=== PATIENT | male | born 1950 | race Caucasian/White ===

== ENCOUNTER 2016-09-04 18:57 | Inpatient (IN) | payer OTHER ==
[2016-09-04 19:32] VITALS: BMI 28.8
[2016-09-04 20:11] LABS: URINE APPEARANCE TURBID; URINE BILIRUBIN NEGATIVE (NEGATIVE); URINE COLOR YELLOW; URINE GLUCOSE (UA) 3+ (NEGATIVE); URINE KETONE NEGATIVE (NEGATIVE); URINE NITRITE POSITIVE (NEGATIVE); URINE UROBILINOGEN NEGATIVE E.U./dl (0.2-1.0)
[2016-09-04 20:12] LABS: URINE BLOOD 3+ (NEGATIVE); URINE LEUK ESTERASE 3+ (NEGATIVE); URINE PROTEIN 2+ (NEGATIVE)
[2016-09-04 20:16] LABS: URINE BACTERIA MODERATE /hpf (NONE SEEN); URINE RBC 1293 /hpf (0-3); URINE WBC 2521 /hpf (3-5); YEAST MANY
[2016-09-04 20:19] LABS: BASOPHIL 0.8 % (0-2.0); EOSINOPHIL 2.6 % (0-4.5); MCH 26.4 pg (25.7-33.7); MCHC 32.5 g/dl (32.0-35.9); MEAN CELL VOLUME 81.3 fl (80-96); MEAN PLT VOLUME 11.7 fl (7.5-11.1); NEUTROPHILS 77.9 % (42.8-82.8); PLATELET COUNT 120 K/MM3 (134-434); RDW 17.7 % (11.9-15.9); WHITE BLOOD COUNT 7.3 K/mm3 (4.0-10.0)
[2016-09-04 20:39] LABS: ALBUMIN 3.2 g/dl (3.4-5.0); ANION GAP 9 (8-16); BILIRUBIN,TOTAL 0.2 mg/dL (0.2-1.0); CALCIUM 8.4 mg/dL (8.5-10.1); CO2 28 mmol/L (21-32); CREATININE 1.5 mg/dL (0.7-1.3); SGOT/AST 10 U/L (15-37); SGPT/ALT 17 U/L (12-78); TOT PROT 7.3 g/dl (6.4-8.2)
[2016-09-04] MEDS ORDERED: morphine CARPU-JECT 4 MG/1 ML DISP.SYRIN IVPUSH ONE (20:40)
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
[2016-09-04 20:42] LABS: ALK PHOS 175 U/L (45-117); TROPONIN I < 0.02 ng/ml (0.00-0.05)
[2016-09-04 20:45] LABS: GLUCOSE,RANDOM 424 mg/dL (74-106)
[2016-09-04] MEDS ORDERED: morphine CARPU-JECT 4 MG/1 ML DISP.SYRIN ONE (21:05)
[2016-09-04] MEDS ORDERED: SODIUM CHLORIDE 1,000 ML IV ONE (21:14)
[2016-09-04] MEDS ORDERED: INSULIN REGULAR HUMAN 100 UNITS/ML *VIAL IVPUSH ONE (21:28)
[2016-09-04] MEDS ORDERED: FLUCONAZOLE 50 MG TABLET PO ONE (21:30)
[2016-09-04] MEDS ORDERED: CEFTRIAXONE 1 GM in DEXTROSE 5%-WATER - 50 ML IVPB ONE (21:30)
[2016-09-04] MEDS ORDERED: MEROPENEM 1 GM in DEXTROSE 5%-WATER - 100 ML IVPB ONE (21:33)
[2016-09-04] MEDS ORDERED: INSULIN REGULAR HUMAN 100 UNITS/ML *VIAL ONE (21:59)
[2016-09-04] MEDS ORDERED: FLUCONAZOLE 100 MG TABLET (UD) ONE (22:01)
[2016-09-04] MEDS ORDERED: amLODIPine BESYLATE 10 MG TABLET (FP) PO ONE (23:15)
[2016-09-04] MEDS ORDERED: PANTOPRAZOLE 40 MG TABLET (FP) PO ONE (23:16)
[2016-09-04] MEDS ORDERED: TAMSULOSIN HCL 0.4 MG CAP.ER.24H (FP) PO ONE (23:16)
[2016-09-04] MEDS ORDERED: ONDANSETRON 4 MG/2 ML VIAL IVPB PRN (23:18)
[2016-09-04] MEDS ORDERED: CEFTRIAXONE 50 ML ONE (23:26)
[2016-09-04] MEDS ORDERED: SODIUM CHLORIDE 1,000 ML IV SCH (23:30)
[2016-09-04] MEDS ORDERED: morphine CARPU-JECT 2 MG/1 ML DISP.SYRIN IVPUSH PRN (23:36)
[2016-09-04] MEDS ORDERED: PANTOPRAZOLE 40 MG TABLET (FP) ONE (23:57)
[2016-09-04] MEDS ORDERED: amLODIPine BESYLATE 5 MG TABLET (FP) ONE (23:58)
[2016-09-04] MEDS ORDERED: TAMSULOSIN HCL 0.4 MG CAP.ER.24H (FP) ONE (23:58)
[2016-09-05 06:05] LABS: CALCIUM 8.1 mg/dL (8.5-10.1); CREATININE 1.3 mg/dL (0.7-1.3)
[2016-09-05] MEDS ORDERED: MEROPENEM 1 GM in DEXTROSE 5%-WATER - 250 ML IVPB SCH (07:30)
[2016-09-05] MEDS ORDERED: MEROPENEM 1 GM in DEXTROSE 5%-WATER - 250 ML IVPB ONE (08:00)
[2016-09-05] MEDS ORDERED: METOPROLOL TARTRATE 50 MG TABLET (FP) PO SCH (10:00)
[2016-09-05] MEDS ORDERED: INSULIN (NOVOLOG) ASPART 100 UNITS/ML 10ML VIAL ONE ×2 (10:00→15:21)
[2016-09-05] MEDS: INSULIN SLIDING SCALE (NOVOLOG) 1 VIAL SQ SCH ×5 (10:04→22:06)
[2016-09-05] MEDS ORDERED: METOPROLOL TARTRATE 50 MG TABLET (FP) ONE (10:10)
--- NOTE | 2016-09-05 12:27 | EKG ---
Test Reason : Blood Pressure : / mmHG Vent. Rate : 096 BPM Atrial Rate : 096 BPM P-R Int : 200 ms QRS Dur : 084 ms QT Int : 332 ms P-R-T Axes : 053 038 049 degrees QTc Int : 419 ms NORMAL SINUS RHYTHM WITH 1ST DEGREE A-V BLOCK LEFT ATRIAL ENLARGEMENT WHEN COMPARED WITH ECG OF 29-MAR-2016 06:38, NO SIGNIFICANT CHANGE WAS FOUND Confirmed by SARANYA CROW MD ([id number]) on 09/05/2016 12:27:26 PM Referred By: DENNY Confirmed By:SARANYA CROW MD
--- NOTE | 2016-09-05 15:17 | CONSULT ---
Consult Consult Specialty:: infectious diseases Reason for Consultation:: uti,fever,flnak pain - History of Present Illness Chief Complaint: fever,back pain History of Present Illness: 66 year old male, with a significant past medical history of hypertension, [place] x2 , hyperlipidemia, diabetes, coronary artery disease CAD s/p stent, and kidney stones, presented to the emergency department with left flank pain and hematuria patient pain was intermittent and also patient was c/o of left flank pain. The pain was associated with hematuria Patient known to me and in the last admission he was growing esbl currently he does c/o of left flank pain but feels better from his chills - History Source History Provided By: Family Member Limitations to Obtaining History: Language Barrier - Past Medical History Cardio/Vascular: Yes: CAD, HTN Renal/: Yes: Other Endocrine: Yes: Diabetes Mellitus - Alcohol/Substance Use Hx Alcohol Use: No - Smoking History Smoking history: Never smoked Have you smoked in the past 12 months: No Aproximately how many cigarettes per day: 0 If you are a former smoker, when did you quit?: 2014 Home Medications - Allergies Allergies/Adverse Reactions: Allergies Allergy/AdvReac Type Severity Reaction Status Date / Time lisinopril Allergy Severe Swelling Verified 09/04/16 19:28 - Home Medications Home Medications: Ambulatory Orders Amlodipine Besylate [Norvasc -] 10 mg PO DAILY 01/22/15 Ferrous Sulfate [Feosol] 325 mg PO DAILY 01/22/15 Glipizide/Metformin HCl [Glipizide-Metformin 5-500 mg] 1 each PO BID 01/22/15 Tamsulosin HCl 0.4 mg PO HS 01/22/15 Tramadol HCl [Ultram] 100 mg PO BID PRN 01/22/15 Esomeprazole Magnesium [Nexium 24Hr] 40 mg PO DAILY 11/22/15 Gabapentin [Neurontin -] 300 mg PO HS 11/22/15 Meclizine HCl [Antivert -] 25 mg PO BID PRN 11/22/15 Metoprolol Tartrate [Lopressor -] 50 mg PO BID 11/22/15 Aspirin [ASA -] 81 mg PO DAILY 01/12/16 Diphenhydramine HCl [Benadryl Capsule -] 50 mg PO TID #20 capsule 03/31/16 Prednisone [Deltasone -] 40 mg PO DAILY #10 tablet 03/31/16 Review of Systems - Review of Systems Constitutional: reports: Chills, Other Eyes: reports: No Symptoms HENT: reports: No Symptoms Neck: reports: No Symptoms Cardiovascular: reports: No Symptoms Respiratory: reports: No Symptoms Gastrointestinal: reports: No Symptoms Genitourinary: reports: Flank Pain, Hematuria Musculoskeletal: reports: No Symptoms Integumentary: reports: No Symptoms Neurological: reports: No Symptoms Endocrine: reports: No Symptoms Hematology/Lymphatic: reports: No Symptoms Psychiatric: reports: No Symptoms Physical Exam Vital Signs: Vital Signs Temperature 99.5 F 09/05/16 07:30 Pulse Rate 96 H 09/05/16 11:00 Respiratory Rate 18 09/05/16 11:00 Blood Pressure 130/75 09/05/16 11:00 O2 Sat by Pulse Oximetry (%) 100 09/05/16 11:00 Constitutional: Yes: Well Nourished, Obese Eyes: Yes: Conjunctiva Clear HENT: Yes: Atraumatic Neck: Yes: Supple, Trachea Midline Cardiovascular: Yes: Regular Rate and Rhythm Respiratory: Yes: Regular, CTA Bilaterally Gastrointestinal: Yes: Normal Bowel Sounds, Soft Renal/: Yes: CVA Tenderness - Left, Preciado Present, Hematuria Musculoskeletal: Yes: WNL Extremities: Yes: WNL Neurological: Yes: Alert, Oriented Psychiatric: Yes: Alert, Oriented Labs: CBC, BMP 09/05/16 08:24 Imaging - Results Cat Scan: Report Reviewed, Image Reviewed Assessment/Plan pyelo uti cathy dm 5. HTN 6. CAD 7. Hematuria plan will start patient on abx continue current mgmt await for plan
[2016-09-05] MEDS ORDERED: SODIUM CHLORIDE 1,000 ML IV SCH (16:15)
--- NOTE | 2016-09-05 16:19 | PN ---
Physical Exam: SUBJECTIVE: Patient seen and examined in the ED. He says he has chills, feels cold. He has emptied his valero bag 3 times, he says his valero back leaks, his urologist is aware, Events: - Febrile overnight - Valero 2 weeks ago, placed 6 months ago, due for stent placement or supra pubic catheter on 09/17. OBJECTIVE: Vital Signs Period Temp Pulse Resp BP Sys/Grissom Pulse Ox Last 24 Hr 99.5 F-100.9 F 73-96 18-20 117-130/62-75 97-100 PE Neuro: alert, awake, cn 2-12intact Pulm: CTAB CV: s1 s2 rrr no mrg Abd: obese abd, soft, diffuse lower pubic pain Ext: warm, no le edema Laboratory Results - last 24 hr 09/04/16 09/05/16 09/05/16 23:43 05:20 08:24 Sodium 133 L Potassium 4.4 Chloride 98 Carbon Dioxide 28 Anion Gap 7 L BUN 12 Creatinine 1.3 POC Glucometer [phone] Random Glucose 365 H* 413 H* Fasting Glucose Calcium 8.1 L Active Medications Generic Name Dose Route Start Last Admin Trade Name Freq PRN Reason Stop Dose Admin Amlodipine Besylate 10 mg 09/06/16 10:00 Norvasc - PO DAILY LINDSEY Gabapentin 300 mg 09/05/16 22:00 Neurontin - PO HS LINDSEY Meropenem 1 gm/ Dextrose 100 mls @ 100 mls/hr 09/05/16 18:00 IVPB Q8H-IV LINDSEY Protocol Sodium Chloride 1,000 mls @ 83 mls/hr 09/05/16 16:15 Normal Saline - IV 09/06/16 04:18 ASDIR LINDSEY Insulin Aspart 1 vial 09/05/16 07:00 09/05/16 15:18 Novolog Vial Sliding Scale - SQ 8 units ACHS LINDSEY Administration Protocol Insulin Detemir 10 units 09/05/16 22:00 Levemir Vial SQ HS LINDSEY Metoprolol Tartrate 50 mg 09/05/16 22:00 Lopressor - PO BID LINDSEY Morphine Sulfate 2 mg 09/04/16 23:36 Morphine Injection - IVPUSH Q4H PRN PAIN Ondansetron HCl 4 mg 09/04/16 23:18 Zofran Injection IVPB 09/06/16 23:17 Q4H PRN NAUSEA AND/OR VOMITING Tamsulosin HCl 0.4 mg 09/05/16 22:00 Flomax - PO HS LINDSEY Imaging: - CTAP 09/05: Double-J left-sided ureteral stent in place with hydroureteronephrosis. This is of moderate severity. There is a questionable mid upper pole cyst of the left kidney. Mild diverticulosis of the colon without diverticulitis Assessment: 66 year old male, with pmhx of HTN, [place] x2, s/p cardiac stents, CAD, HLD, DM II, and nephrolitiasis, TURP, left kidney stent placement, prostate ca, admitted left flank pain and hematuria. Plan: 1. Left Hydroureteronephrosis - CTAP negative for stone signs - NS @83cc/hr x1L - Monitor fluid status - Hold ASA for now d/t hematuria - Urology consulted 2. UTI, hx of esbl klebsiella in 2016 - Urcx, blood cx pending - Continue Meropenem 1gm q8 (day 1) - ID seeing 3. MARY - Likely post obstructive - Improving - Continue IVF - BMP in AM, baseline cr 1.1 4. Diabetes Mellitus, uncontrolled - Check Hgb A1c - Hold PO antidiabetics - Levemir 10units HS - ISS, BGM ACHS 5. HTN - Amlodipine 10 mg daily 6. CAD s/p stents - Continue Metoprolol BID - Hold ASA at this time 7. Hematuria - Monitor I/O - Hold chemical AC at this time 8. DVT ppx - SCDs - Hold Chemical AC due to above Visit type - Emergency Visit Emergency Visit: Yes ED Registration Date: 09/04/16 Care time: The patient presented to the Emergency Department on the above date and was hospitalized for further evaluation of their emergent condition. - New Patient This patient is new to me today: Yes Date on this admission: 09/05/16 - Critical Care Critical Care patient: No
[2016-09-05] MEDS: MEROPENEM 1 GM in DEXTROSE 5%-WATER - 100 ML IVPB SCH (21:56)
[2016-09-05] MEDS: GABAPENTIN 300 MG CAPSULE (FP) PO SCH (21:56)
[2016-09-05] MEDS: METOPROLOL TARTRATE 50 MG TABLET (FP) PO SCH (21:57)
[2016-09-05] MEDS: ACETAMINOPHEN 325 MG TABLET (FP) PO PRN (21:57)
[2016-09-05] MEDS ORDERED: TAMSULOSIN HCL 0.4 MG CAP.ER.24H (FP) PO SCH (22:00)
[2016-09-05] MEDS ORDERED: INSULIN DETEMIR 100 UNITS/ML MDV SQ SCH (22:00)
--- NOTE | 2016-09-05 23:42 | CON.GU ---
Consult Consult Specialty:: urology Reason for Consultation:: lt hydronpehrosis, lt renal colick, lt ureteral stone - History of Present Illness Chief Complaint: lt colick flank pain - Past Medical History Cardio/Vascular: Yes: CAD, HTN Renal/: Yes: Other Endocrine: Yes: Diabetes Mellitus - Alcohol/Substance Use Hx Alcohol Use: No - Smoking History Smoking history: Never smoked Have you smoked in the past 12 months: No Aproximately how many cigarettes per day: 0 If you are a former smoker, when did you quit?: 2014 Home Medications - Allergies Allergies/Adverse Reactions: Allergies Allergy/AdvReac Type Severity Reaction Status Date / Time lisinopril Allergy Severe Swelling Verified 09/04/16 19:28 - Home Medications Home Medications: Ambulatory Orders Amlodipine Besylate [Norvasc -] 10 mg PO DAILY 01/22/15 Ferrous Sulfate [Feosol] 325 mg PO DAILY 01/22/15 Glipizide/Metformin HCl [Glipizide-Metformin 5-500 mg] 1 each PO BID 01/22/15 Tamsulosin HCl 0.4 mg PO HS 01/22/15 Tramadol HCl [Ultram] 100 mg PO BID PRN 01/22/15 Esomeprazole Magnesium [Nexium 24Hr] 40 mg PO DAILY 11/22/15 Gabapentin [Neurontin -] 300 mg PO HS 11/22/15 Meclizine HCl [Antivert -] 25 mg PO BID PRN 11/22/15 Metoprolol Tartrate [Lopressor -] 50 mg PO BID 11/22/15 Aspirin [ASA -] 81 mg PO DAILY 01/12/16 Diphenhydramine HCl [Benadryl Capsule -] 50 mg PO TID #20 capsule 03/31/16 Prednisone [Deltasone -] 40 mg PO DAILY #10 tablet 03/31/16 Review of Systems - Review of Systems Genitourinary: reports: Flank Pain (lt flank pain, colick in nature, + CVA tenderness), Hematuria (microscopic) Physical Exam- Vital Signs: Vital Signs Temperature 100.4 F H 09/05/16 23:00 Pulse Rate 106 H 09/05/16 22:00 Respiratory Rate 18 09/05/16 22:00 Blood Pressure 130/67 09/05/16 22:00 O2 Sat by Pulse Oximetry (%) 100 09/05/16 18:00 Renal/: Yes: CVA Tenderness - Left, Hematuria (microsccopic) Kidneys: Yes: WNL, Other (lt hydronpehprosis) Testicles: Yes: WNL Scrotum: Yes: WNL Penis: Yes: WNL Labs: CBC, BMP 09/05/16 08:24 Imaging - Results Cat Scan: Report Reviewed (lt hydro, lt stent) Problem List - Problems (1) Acute kidney injury Code(s): N17.9 - ACUTE KIDNEY FAILURE, UNSPECIFIED (2) UTI (urinary tract infection) Code(s): N39.0 - URINARY TRACT INFECTION, SITE NOT SPECIFIED Qualifiers: Urinary tract infection type: site unspecified Hematuria presence: without hematuria Qualified Code(s): N39.0 - Urinary tract infection, site not specified (3) Ureterovesical junction (UVJ) obstruction Code(s): N13.5 - CROSSING VESSEL AND STRICTURE OF URETER W/O HYDRONEPHROSIS (4) Acute urinary retention Code(s): R33.8 - OTHER RETENTION OF URINE (5) Angioedema Code(s): T78.3XXA - ANGIONEUROTIC EDEMA, INITIAL ENCOUNTER Qualifiers: Encounter type: initial encounter Qualified Code(s): T78.3XXA - Angioneurotic edema, initial encounter (6) CAD (coronary artery disease) Code(s): I25.10 - ATHSCL HEART DISEASE OF [place] CORONARY ARTERY W/O ANG PCTRS (7) DVT prophylaxis Code(s): [id number] - (8) Diabetes Code(s): E11.9 - TYPE 2 DIABETES MELLITUS WITHOUT COMPLICATIONS (9) Hematuria Code(s): R31.9 - HEMATURIA, UNSPECIFIED (10) Hydroureter Code(s): N13.4 - HYDROURETER (11) Hyperglycemia Code(s): R73.9 - HYPERGLYCEMIA, UNSPECIFIED (12) Hypertension Code(s): I10 - ESSENTIAL (PRIMARY) HYPERTENSION (13) Pyelonephritis Code(s): N12 - TUBULO-INTERSTITIAL NEPHRITIS, NOT SPCF ACUTE OR CHRONIC (14) Vertigo Code(s): R42 - DIZZINESS AND GIDDINESS Assessment/Plan assessment: 66 M w Lt hydronephrosis secondary to lt ureteral stone plan: valeor to leg back strain urine for stones, increase PO fluids Renal/pelvis sonogram in AM flomox .4mg po daily if no improvement, laser lithotripsy on Tuesday
[2016-09-06] MEDS ORDERED: PT OWN MED DRAWER 7, Y5N ONE (02:32)
[2016-09-06] MEDS: MEROPENEM 1 GM in DEXTROSE 5%-WATER - 100 ML IVPB SCH ×3 (02:34→17:33)
[2016-09-06] MEDS: INSULIN SLIDING SCALE (NOVOLOG) 1 VIAL SQ SCH ×4 (06:16→21:46)
[2016-09-06 07:00] LABS: CALCIUM 8.1 mg/dL (8.5-10.1); CREATININE 1.2 mg/dL (0.7-1.3)
[2016-09-06] MEDS: SODIUM CHLORIDE 1,000 ML IV SCH (08:57)
[2016-09-06] MEDS: TAMSULOSIN HCL 0.4 MG CAP.ER.24H (FP) PO SCH (08:58)
[2016-09-06] MEDS: METOPROLOL TARTRATE 50 MG TABLET (FP) PO SCH ×2 (09:01→21:45)
[2016-09-06] MEDS: amLODIPine BESYLATE 10 MG TABLET (FP) PO SCH (09:01)
[2016-09-06] MEDS: ACETAMINOPHEN 325 MG TABLET (FP) PO PRN ×2 (10:19→17:57)
--- NOTE | 2016-09-06 10:31 | PN ---
Physical Exam: SUBJECTIVE: Patient seen and examined. He said he felt cold last night, he no longer does. His pain is improved a little. Events: Persistent fevers overnight, today OBJECTIVE: Vital Signs Period Temp Pulse Resp BP Sys/Grissom Pulse Ox Last 24 Hr 97.6 F-102 F 76-110 16-19 127-152/67-89 100-100 PE Neuro: alert, awake, cn 2-12intact Pulm: CTAB CV: s1 s2 rrr no mrg Abd: obese abd, soft, diffuse lower pubic pain- mildly improved : valero bag, L flank tenderness Ext: warm, no le edema Laboratory Results - last 24 hr 09/05/16 09/06/16 13:21 05:25 Sodium 137 Potassium 3.7 Chloride 101 Carbon Dioxide 26 Anion Gap 10 BUN 12 Creatinine 1.2 Random Glucose 221 H D Fasting Glucose 326 H* Calcium 8.1 L 09/06/16 05:25 Hemoglobin A1c % 10.9 H D Active Medications Generic Name Dose Route Start Last Admin Trade Name Freq PRN Reason Stop Dose Admin Acetaminophen 650 mg 09/05/16 16:51 09/06/16 10:19 Tylenol - PO 650 mg Q4H PRN Administration FEVER OR PAIN Amlodipine Besylate 10 mg 09/06/16 10:00 09/06/16 09:01 Norvasc - PO 10 mg DAILY LINDSEY Administration Gabapentin 300 mg 09/05/16 22:00 09/05/16 21:56 Neurontin - PO 300 mg HS LINDSEY Administration Meropenem 1 gm/ Dextrose 100 mls @ 100 mls/hr 09/05/16 18:00 09/06/16 10:19 IVPB 100 mls/hr Q8H-IV LINDSEY Administration Protocol Sodium Chloride 1,000 mls @ 75 mls/hr 09/06/16 08:00 09/06/16 08:57 Normal Saline - IV 75 mls/hr ASDIR LINDSEY Administration Insulin Aspart 1 vial 09/05/16 07:00 09/06/16 06:16 Novolog Vial Sliding Scale - SQ 6 units ACHS LINDSEY Administration Protocol Insulin Detemir 13 units 09/06/16 07:49 Levemir Vial SQ HS LINDSEY Metoprolol Tartrate 50 mg 09/05/16 22:00 09/06/16 09:01 Lopressor - PO 50 mg BID LINDSEY Administration Morphine Sulfate 2 mg 09/04/16 23:36 Morphine Injection - IVPUSH Q4H PRN PAIN Ondansetron HCl 4 mg 09/04/16 23:18 Zofran Injection IVPB 09/06/16 23:17 Q4H PRN NAUSEA AND/OR VOMITING Tamsulosin HCl 0.4 mg 09/06/16 08:30 09/06/16 08:58 Flomax - PO 0.4 mg DAILY@0830 LINDSEY Administration Imaging: - CTAP 09/05: Double-J left-sided ureteral stent in place with hydroureteronephrosis. This is of moderate severity. There is a questionable mid upper pole cyst of the left kidney. Mild diverticulosis of the colon without diverticulitis Assessment: 66 year old male, with pmhx of HTN, [place] x2, s/p cardiac stents, CAD, HLD, DM II, and nephrolitiasis, TURP, left kidney stent placement, prostate ca, admitted left flank pain and hematuria. Plan: 1. Left Hydroureteronephrosis - Likely due to ureteral stone - Continue NS @75cc/hr x1L - Hold ASA for now d/t hematuria and possible urological procedure Tuesday - Urology following 2. UTI, hx of esbl klebsiella in 2016 - Urine cx pre rosales LFNB - Continue Meropenem 1gm q8 (day 2) 3. MARY - Continues to improve - Continue IVF 4. Diabetes Mellitus, uncontrolled - Hgb A1c 10.9 - Increase Levemir 13units HS - ISS, BGM ACHS - Hold PO antidiabetics 5. HTN - BP stable - Amlodipine 10 mg daily 6. CAD s/p stents - Continue Metoprolol BID - Hold ASA at this time 7. Hematuria - Monitor I/O - Hold chemical AC at this time - Repeat UA tomorrow 8. DVT ppx - SCDs - Hold Chemical AC due to above Visit type - Emergency Visit Emergency Visit: Yes ED Registration Date: 09/04/16 Care time: The patient presented to the Emergency Department on the above date and was hospitalized for further evaluation of their emergent condition. - New Patient This patient is new to me today: No - Critical Care Critical Care patient: No
[2016-09-06] MEDS ORDERED: INSULIN (NOVOLOG) ASPART 100 UNITS/ML 10ML VIAL ONE ×2 (11:44→21:38)
--- NOTE | 2016-09-06 13:52 | PN ---
Progress Note, Physician History of Present Illness: ferdinand avila still has back pain,but better - Current Medication List Current Medications: Active Medications Acetaminophen (Tylenol -) 650 mg PO Q4H PRN PRN Reason: FEVER OR PAIN Last Admin: 09/06/16 10:19 Dose: 650 mg Amlodipine Besylate (Norvasc -) 10 mg PO DAILY [facility] Last Admin: 09/06/16 09:01 Dose: 10 mg Gabapentin (Neurontin -) 300 mg PO HS [facility] Last Admin: 09/05/16 21:56 Dose: 300 mg Meropenem 1 gm/ Dextrose 100 mls @ 100 mls/hr IVPB Q8H-IV LINDSEY PRN Reason: Protocol Last Admin: 09/06/16 10:19 Dose: 100 mls/hr Sodium Chloride (Normal Saline -) 1,000 mls @ 75 mls/hr IV ASDIR [facility] Last Admin: 09/06/16 08:57 Dose: 75 mls/hr Insulin Aspart (Novolog Vial Sliding Scale -) 1 vial SQ ACHS [facility] PRN Reason: Protocol Last Admin: 09/06/16 12:08 Dose: 10 units Insulin Detemir (Levemir Vial) 13 units SQ [facility] Metoprolol Tartrate (Lopressor -) 50 mg PO BID [facility] Last Admin: 09/06/16 09:01 Dose: 50 mg Morphine Sulfate (Morphine Injection -) 2 mg IVPUSH Q4H PRN PRN Reason: PAIN Ondansetron HCl (Zofran Injection) 4 mg IVPB Q4H PRN PRN Reason: NAUSEA AND/OR VOMITING Stop: 09/06/16 23:17 Tamsulosin HCl (Flomax -) 0.4 mg PO DAILY@0830 [facility] Last Admin: 09/06/16 08:58 Dose: 0.4 mg - Objective Vital Signs: Vital Signs Temperature 101.2 F H 09/06/16 09:05 Pulse Rate 105 H 09/06/16 09:05 Respiratory Rate 19 09/06/16 09:05 Blood Pressure 129/71 09/06/16 09:05 O2 Sat by Pulse Oximetry (%) 100 09/05/16 21:00 Constitutional: Yes: Calm, Mild Distress Cardiovascular: Yes: Regular Rate and Rhythm Respiratory: Yes: Regular, CTA Bilaterally Gastrointestinal: Yes: Normal Bowel Sounds, Soft Genitourinary: Yes: CVA Tenderness - Left Musculoskeletal: Yes: WNL Extremities: Yes: WNL Neurological: Yes: Alert, Oriented Psychiatric: Yes: Alert Labs: CBC, BMP 09/06/16 05:25 Assessment/Plan pyelo uti cathy dm 5. HTN 6. CAD 7. Hematuria urine cx result noted await for identification plan continue abx rest as per =the team
[2016-09-06] MEDS: INSULIN DETEMIR 100 UNITS/ML MDV SQ SCH (21:46)
[2016-09-06] MEDS: GABAPENTIN 300 MG CAPSULE (FP) PO SCH (21:46)
[2016-09-07] MEDS ORDERED: PT OWN MED DRAWER 7, Y5N ONE (01:54)
[2016-09-07] MEDS: SODIUM CHLORIDE 1,000 ML IV SCH ×2 (02:23→08:00)
[2016-09-07] MEDS: MEROPENEM 1 GM in DEXTROSE 5%-WATER - 100 ML IVPB SCH ×3 (02:24→17:56)
[2016-09-07] MEDS: ACETAMINOPHEN 325 MG TABLET (FP) PO PRN ×2 (02:50→20:31)
[2016-09-07] MEDS: INSULIN SLIDING SCALE (NOVOLOG) 1 VIAL SQ SCH ×4 (06:42→21:50)
[2016-09-07 07:37] LABS: BASOPHIL 0.6 % (0-2.0); EOSINOPHIL 1.1 % (0-4.5); MCHC 31.7 g/dl (32.0-35.9); MEAN CELL VOLUME 81.9 fl (80-96); MEAN PLT VOLUME 11.3 fl (7.5-11.1); NEUTROPHILS 60.8 % (42.8-82.8); PLATELET COUNT 102 K/MM3 (134-434); RDW 17.1 % (11.9-15.9); WHITE BLOOD COUNT 4.3 K/mm3 (4.0-10.0)
[2016-09-07 08:04] LABS: PHOSPHOROUS 2.8 mg/dL (2.5-4.9)
--- NOTE | 2016-09-07 08:26 | PN ---
Physical Exam: SUBJECTIVE: Patient seen and examined. His valero appears to be leaking, he had x3 intermittent epigastric pain but leaves quickly. Events: fevers, tmax 102.5 OBJECTIVE: Vital Signs Period Temp Pulse Resp BP Sys/Grissom Pulse Ox Last 24 Hr 98.5 F-102.5 F 79-105 16-20 114-129/65-72 95-100 PE Neuro: alert, awake, cn 2-12intact Pulm: CTAB CV: s1 s2 rrr no mrg Abd: abd, soft, nt +bs, : valero bag, R groin tenderness Ext: warm, no le edema CBCD WBC 4.3 K/mm3 (4.0-10.0) D 09/07/16 06:50 RBC 3.78 M/mm3 (4.00-5.60) L 09/07/16 06:50 Hgb 9.8 GM/dL (11.7-16.9) L 09/07/16 06:50 Hct 30.9 % (35.4-49) L 09/07/16 06:50 MCV 81.9 fl (80-96) 09/07/16 06:50 MCHC 31.7 g/dl (32.0-35.9) L 09/07/16 06:50 RDW 17.1 % (11.9-15.9) H 09/07/16 06:50 Plt Count 102 K/MM3 (134-434) L 09/07/16 06:50 MPV 11.3 fl (7.5-11.1) H 09/07/16 06:50 CMP Sodium 141 mmol/L (136-145) 09/07/16 06:50 Potassium 3.7 mmol/L (3.5-5.1) 09/07/16 06:50 Chloride 105 mmol/L (98-107) 09/07/16 06:50 Carbon Dioxide 27 mmol/L (21-32) 09/07/16 06:50 Anion Gap 9 (8-16) 09/07/16 06:50 BUN 8 mg/dL (7-18) D 09/07/16 06:50 Creatinine 1.0 mg/dL (0.7-1.3) 09/07/16 06:50 Creat Clearance w eGFR 46.54 (>60) 09/04/16 20:08 Calcium 8.0 mg/dL (8.5-10.1) L 09/07/16 06:50 Total Bilirubin 0.2 mg/dL (0.2-1.0) D 09/04/16 20:08 AST 10 U/L (15-37) L D 09/04/16 20:08 ALT 17 U/L (12-78) D 09/04/16 20:08 Alkaline Phosphatase 175 U/L (45-117) H D 09/04/16 20:08 Total Protein 7.3 g/dl (6.4-8.2) 09/04/16 20:08 Albumin 3.2 g/dl (3.4-5.0) L 09/04/16 20:08 Active Medications Generic Name Dose Route Start Last Admin Trade Name Freq PRN Reason Stop Dose Admin Acetaminophen 650 mg 09/05/16 16:51 09/07/16 02:50 Tylenol - PO 650 mg Q4H PRN Administration FEVER OR PAIN Amlodipine Besylate 10 mg 09/06/16 10:00 09/06/16 09:01 Norvasc - PO 10 mg DAILY LINDSEY Administration Gabapentin 300 mg 09/05/16 22:00 09/06/16 21:46 Neurontin - PO 300 mg HS LINDSEY Administration Meropenem 1 gm/ Dextrose 100 mls @ 100 mls/hr 09/05/16 18:00 09/07/16 02:24 IVPB 100 mls/hr Q8H-IV LINDSEY Administration Protocol Sodium Chloride 1,000 mls @ 75 mls/hr 09/06/16 08:00 09/07/16 02:23 Normal Saline - IV 75 mls/hr ASDIR LINDSEY Administration Insulin Aspart 1 vial 09/05/16 07:00 09/07/16 06:42 Novolog Vial Sliding Scale - SQ 2 units ACHS LINDSEY Administration Protocol Insulin Detemir 13 units 09/06/16 07:49 09/06/16 21:46 Levemir Vial SQ 13 units HS LINDSEY Administration Metoprolol Tartrate 50 mg 09/05/16 22:00 09/06/16 21:45 Lopressor - PO 50 mg BID LINDSEY Administration Morphine Sulfate 2 mg 09/04/16 23:36 Morphine Injection - IVPUSH Q4H PRN PAIN Tamsulosin HCl 0.4 mg 09/06/16 08:30 09/06/16 08:58 Flomax - PO 0.4 mg DAILY@0830 LINDSEY Administration Imaging: - CTAP 09/05: Double-J left-sided ureteral stent in place with hydroureteronephrosis. This is of moderate severity. There is a questionable mid upper pole cyst of the left kidney. Mild diverticulosis of the colon without diverticulitis Assessment: 66 year old male, with pmhx of HTN, [place] x2, s/p cardiac stents, CAD, HLD, DM II, and nephrolitiasis, TURP, left kidney stent placement, prostate ca, admitted left flank pain and hematuria. Plan: 1. Left Hydroureteronephrosis - Likely due to ureteral stone - Decrease NS @60cc/hr - Strain urine - Hold ASA for now d/t hematuria and possible urological procedure Tuesday 2. UTI, hx of esbl klebsiella in 2015 - Repeat blood cultures pending - Awaiting final urine cx results - Continue Meropenem 1gm q8 (day 3) 3. MARY - Resolved 4. Diabetes Mellitus, uncontrolled (a1c 10.9) - AM sugars improved - Continue Levemir 13units HS - ISS, BGM ACHS - Hold home po meds 5. HTN - BP stable - Amlodipine 10 mg daily 6. CAD s/p stents - Continue Metoprolol BID - Hold ASA at this time 7. Hematuria - Monitor I/O - Hold chemical AC at this time - UA ordered 8. DVT ppx - Start Heparin sq Visit type - Emergency Visit Emergency Visit: Yes ED Registration Date: 09/04/16 Care time: The patient presented to the Emergency Department on the above date and was hospitalized for further evaluation of their emergent condition. - New Patient This patient is new to me today: No - Critical Care Critical Care patient: No
[2016-09-07] MEDS ORDERED: INSULIN (NOVOLOG) ASPART 100 UNITS/ML 10ML VIAL ONE ×2 (09:22→21:33)
[2016-09-07] MEDS: amLODIPine BESYLATE 10 MG TABLET (FP) PO SCH (09:28)
[2016-09-07] MEDS: TAMSULOSIN HCL 0.4 MG CAP.ER.24H (FP) PO SCH (09:28)
[2016-09-07] MEDS: METOPROLOL TARTRATE 50 MG TABLET (FP) PO SCH ×2 (09:28→21:46)
[2016-09-07] MEDS ORDERED: SODIUM CHLORIDE 1,000 ML IV SCH (11:07)
[2016-09-07] MEDS: HEPARIN NA (PORCINE) 5,000 UNITS/ML 1ML VIAL SQ SCH ×2 (13:47→21:46)
--- NOTE | 2016-09-07 14:44 | PN ---
Progress Note (short form) - Note Progress Note: discussed with nurse due to weather unable to see pt today needs consent for left laser lithotripsy and stent exchange npo p mn d/c folley vitals signs stable pe - unable to perform due to weather was notified that valero leaking d/c valero will follow if any changes please call me [phone] Problem List - Problems (1) Acute kidney injury Code(s): N17.9 - ACUTE KIDNEY FAILURE, UNSPECIFIED (2) UTI (urinary tract infection) Code(s): N39.0 - URINARY TRACT INFECTION, SITE NOT SPECIFIED Qualifiers: Urinary tract infection type: site unspecified Hematuria presence: without hematuria Qualified Code(s): N39.0 - Urinary tract infection, site not specified (3) Ureterovesical junction (UVJ) obstruction Code(s): N13.5 - CROSSING VESSEL AND STRICTURE OF URETER W/O HYDRONEPHROSIS (4) Acute urinary retention Code(s): R33.8 - OTHER RETENTION OF URINE (5) Angioedema Code(s): T78.3XXA - ANGIONEUROTIC EDEMA, INITIAL ENCOUNTER Qualifiers: Encounter type: initial encounter Qualified Code(s): T78.3XXA - Angioneurotic edema, initial encounter (6) CAD (coronary artery disease) Code(s): I25.10 - ATHSCL HEART DISEASE OF [place] CORONARY ARTERY W/O ANG PCTRS (7) DVT prophylaxis Code(s): [id number] - (8) Diabetes Code(s): E11.9 - TYPE 2 DIABETES MELLITUS WITHOUT COMPLICATIONS (9) Hematuria Code(s): R31.9 - HEMATURIA, UNSPECIFIED (10) Hydroureter Code(s): N13.4 - HYDROURETER (11) Hyperglycemia Code(s): R73.9 - HYPERGLYCEMIA, UNSPECIFIED (12) Hypertension Code(s): I10 - ESSENTIAL (PRIMARY) HYPERTENSION (13) Pyelonephritis Code(s): N12 - TUBULO-INTERSTITIAL NEPHRITIS, NOT SPCF ACUTE OR CHRONIC (14) Vertigo Code(s): R42 - DIZZINESS AND GIDDINESS
[2016-09-07 21:10] LABS: URINE APPEARANCE CLEAR; URINE BILIRUBIN NEGATIVE (NEGATIVE); URINE COLOR STRAW; URINE GLUCOSE (UA) 3+ (NEGATIVE); URINE KETONE NEGATIVE (NEGATIVE); URINE NITRITE NEGATIVE (NEGATIVE); URINE UROBILINOGEN NEGATIVE E.U./dl (0.2-1.0)
[2016-09-07 21:11] LABS: URINE BLOOD 2+ (NEGATIVE); URINE LEUK ESTERASE 3+ (NEGATIVE); URINE PROTEIN 1+ (NEGATIVE)
[2016-09-07 21:13] LABS: URINE BACTERIA RARE /hpf (NONE SEEN); URINE RBC 7 /hpf (0-3); URINE WBC 86 /hpf (3-5); YEAST RARE
[2016-09-07] MEDS: GABAPENTIN 300 MG CAPSULE (FP) PO SCH (21:46)
[2016-09-07] MEDS: INSULIN DETEMIR 100 UNITS/ML MDV SQ SCH (21:50)
[2016-09-07] MEDS ORDERED: traMADol HCL 50 MG TABLET PO ONE (22:53)
[2016-09-08] MEDS ORDERED: PT OWN MED DRAWER 7, Y5N ONE (02:44)
[2016-09-08] MEDS: MEROPENEM 1 GM in DEXTROSE 5%-WATER - 100 ML IVPB SCH ×3 (02:51→17:37)
[2016-09-08] MEDS: HEPARIN NA (PORCINE) 5,000 UNITS/ML 1ML VIAL SQ SCH ×3 (05:49→22:19)
[2016-09-08] MEDS: INSULIN SLIDING SCALE (NOVOLOG) 1 VIAL SQ SCH ×4 (06:14→22:18)
[2016-09-08 08:23] LABS: CALCIUM 8.4 mg/dL (8.5-10.1)
[2016-09-08] MEDS: TAMSULOSIN HCL 0.4 MG CAP.ER.24H (FP) PO SCH (08:44)
[2016-09-08] MEDS: amLODIPine BESYLATE 10 MG TABLET (FP) PO SCH (09:24)
[2016-09-08] MEDS: METOPROLOL TARTRATE 50 MG TABLET (FP) PO SCH ×2 (09:24→22:19)
--- NOTE | 2016-09-08 09:45 | PN ---
Physical Exam: SUBJECTIVE: Patient seen and examined. He still has R groin pain, otherwise he feels well. Events: - Preciado discontinued d/t leak, low grade fevers - Tramadol x1 last night OBJECTIVE: Vital Signs Period Temp Pulse Resp BP Sys/Grissom Pulse Ox Last 24 Hr 99.5 F-101.7 F 82-91 16-18 115-140/71-75 95 PE Neuro: alert, awake, cn 2-12intact Pulm: CTAB CV: s1 s2 rrr no mrg Abd: abd, soft, nt +bs Ext: warm, no le edema CMP Sodium 139 mmol/L (136-145) 09/08/16 06:15 Potassium 3.8 mmol/L (3.5-5.1) 09/08/16 06:15 Chloride 104 mmol/L (98-107) 09/08/16 06:15 Carbon Dioxide 28 mmol/L (21-32) 09/08/16 06:15 Anion Gap 7 (8-16) L 09/08/16 06:15 BUN 8 mg/dL (7-18) 09/08/16 06:15 Creatinine 1.0 mg/dL (0.7-1.3) 09/08/16 06:15 Creat Clearance w eGFR 46.54 (>60) 09/04/16 20:08 Calcium 8.4 mg/dL (8.5-10.1) L 09/08/16 06:15 Total Bilirubin 0.2 mg/dL (0.2-1.0) D 09/04/16 20:08 AST 10 U/L (15-37) L D 09/04/16 20:08 ALT 17 U/L (12-78) D 09/04/16 20:08 Alkaline Phosphatase 175 U/L (45-117) H D 09/04/16 20:08 Total Protein 7.3 g/dl (6.4-8.2) 09/04/16 20:08 Albumin 3.2 g/dl (3.4-5.0) L 09/04/16 20:08 Active Medications Generic Name Dose Route Start Last Admin Trade Name Freq PRN Reason Stop Dose Admin Acetaminophen 650 mg 09/05/16 16:51 09/07/16 20:31 Tylenol - PO 650 mg Q4H PRN Administration FEVER OR PAIN Amlodipine Besylate 10 mg 09/06/16 10:00 09/08/16 09:24 Norvasc - PO 10 mg DAILY LNIDSEY Administration Gabapentin 300 mg 09/05/16 22:00 09/07/16 21:46 Neurontin - PO 300 mg HS LINDSEY Administration Heparin Sodium (Porcine) 5,000 unit 09/07/16 14:00 09/08/16 05:49 Heparin - SQ Not Given TID LINDSEY Meropenem 1 gm/ Dextrose 100 mls @ 100 mls/hr 09/05/16 18:00 09/08/16 09:24 IVPB 100 mls/hr Q8H-IV LINDSEY Administration Protocol Sodium Chloride 1,000 mls @ 60 mls/hr 09/07/16 11:07 09/07/16 11:52 Normal Saline - IV 60 mls/hr ASDIR LINDSEY Administration Insulin Aspart 1 vial 09/05/16 07:00 09/08/16 06:14 Novolog Vial Sliding Scale - SQ Not Given ACHS LINDSEY Protocol Insulin Detemir 13 units 09/06/16 07:49 09/07/16 21:50 Levemir Vial SQ 13 units HS LINDSEY Administration Metoprolol Tartrate 50 mg 09/05/16 22:00 09/08/16 09:24 Lopressor - PO 50 mg BID LINDSEY Administration Morphine Sulfate 2 mg 09/04/16 23:36 Morphine Injection - IVPUSH Q4H PRN PAIN Tamsulosin HCl 0.4 mg 09/06/16 08:30 09/08/16 08:44 Flomax - PO 0.4 mg DAILY@0830 LINDSEY Administration Imaging: - CTAP 09/05: Double-J left-sided ureteral stent in place with hydroureteronephrosis. This is of moderate severity. There is a questionable mid upper pole cyst of the left kidney. Mild diverticulosis of the colon without diverticulitis Assessment: 66 year old male, with pmhx of HTN, [place] x2, s/p cardiac stents, CAD, HLD, DM II, and nephrolitiasis, TURP, left kidney stent placement, prostate ca, ESBL UTI in 2016 admitted left flank pain and hematuria. Plan: 1. Left Hydroureteronephrosis d/t obstructing stone - For left laser lithotripsy and stent exchange today - Urology seeing 2. ESBL UTI - Continue Meropenem 1gm q8 (day 4) 3. Diabetes Mellitus, uncontrolled (a1c 10.9) - Sugars elevated this AM, levemir held? - Continue Levemir 13units HS - ISS, BGM ACHS - Hold home po meds 4. HTN - BP stable - Amlodipine 10 mg daily 5. MARY - Resolved 6. CAD s/p stents - Continue Metoprolol BID - Hold ASA at this time 7. Hematuria - Monitor I/O - Hold chemical AC at this time - UA ordered 8. DVT ppx - Heparin sq Visit type - Emergency Visit Emergency Visit: Yes ED Registration Date: 09/04/16 Care time: The patient presented to the Emergency Department on the above date and was hospitalized for further evaluation of their emergent condition. - New Patient This patient is new to me today: No - Critical Care Critical Care patient: No - Discharge Referral Referred to [facility] Med P.C.: No
[2016-09-08] MEDS ORDERED: PROPOFOL 20 ML ONE (10:54)
--- NOTE | 2016-09-08 11:40 | OP ---
Operative Note - Note: Operative Date: 09/08/16 Pre-Operative Diagnosis: obstructive uropathy Operation: cysto exchange of stent Post-Operative Diagnosis: Same as Pre-op Surgeon: Nikolas Rivera Anesthesia: General Specimens Removed: Previous stent Operative Report Dictated: Yes
[2016-09-08] MEDS ORDERED: ONDANSETRON 4 MG/2 ML VIAL IVPUSH PRN (11:49)
--- NOTE | 2016-09-08 12:04 | OP ---
DATE OF OPERATION: 09/07/2016 SURGEON: Nikolas Rivera MD ANESTHESIA: General. PREOPERATIVE DIAGNOSIS: Obstructive uropathy, left collecting system. POSTOPERATIVE DIAGNOSIS: Obstructive uropathy, left collecting system. PROCEDURE: Cystoscopy and exchange of stents. DESCRIPTION OF PROCEDURE: Patient in lithotomy position, under anesthesia, was prepped and draped in the usual manner. Using 22 scope, cystoscopy performed. Previously placed stent was removed. A new stent was placed, confirmed with x-ray. Patient tolerated the procedure well, left the operating room in a satisfactory condition. Omar [id number]
[2016-09-08] MEDS ORDERED: morphine CARPU-JECT 2 MG/1 ML DISP.SYRIN IVPUSH PRN (12:23)
[2016-09-08] MEDS ORDERED: ACETAMINOPHEN 325 MG TABLET (FP) PO PRN (12:23)
[2016-09-08] MEDS: SODIUM CHLORIDE 1,000 ML IV SCH (12:30)
--- NOTE | 2016-09-08 12:34 | PN ---
Progress Note, Physician History of Present Illness: stable stll spiking patient for lithotripsy/stent - Current Medication List Current Medications: Active Medications Acetaminophen (Tylenol -) 650 mg PO Q4H PRN PRN Reason: FEVER OR PAIN Amlodipine Besylate (Norvasc -) 10 mg PO DAILY LINDSEY Fentanyl (Sublimaze Injection -) 25 mcg IVPUSH [id number] PRN PRN Reason: PAIN Stop: 09/11/16 11:50 Gabapentin (Neurontin -) 300 mg PO HS LINDSEY Heparin Sodium (Porcine) (Heparin -) 5,000 unit SQ TID LINDSEY Lactated Ringer's (Lactated Ringers Solution) 1,000 mls @ 75 mls/hr IV ASDIR LINDSEY Meropenem 1 gm/ Dextrose 100 mls @ 100 mls/hr IVPB Q8H-IV LINDSEY PRN Reason: Protocol Sodium Chloride (Normal Saline -) 1,000 mls @ 60 mls/hr IV ASDIR LINDSEY Insulin Aspart (Novolog Vial Sliding Scale -) 1 vial SQ ACHS LINDSEY PRN Reason: Protocol Insulin Detemir (Levemir Vial) 13 units SQ HS [facility] Metoprolol Tartrate (Lopressor -) 50 mg PO BID LINDSEY Morphine Sulfate (Morphine Injection -) 2 mg IVPUSH Q4H PRN PRN Reason: PAIN Ondansetron HCl (Zofran Injection) 4 mg IVPUSH Q6H PRN PRN Reason: NAUSEA AND/OR VOMITING Stop: 09/08/16 17:50 Tamsulosin HCl (Flomax -) 0.4 mg PO DAILY@0830 [facility] - Objective Vital Signs: Vital Signs Temperature 99.7 F H 09/08/16 09:21 Pulse Rate 86 09/08/16 09:21 Respiratory Rate 18 09/08/16 09:21 Blood Pressure 115/75 09/08/16 09:21 O2 Sat by Pulse Oximetry (%) 95 09/07/16 22:00 Constitutional: Yes: No Distress, Calm Cardiovascular: Yes: Regular Rate and Rhythm Respiratory: Yes: Regular, CTA Bilaterally Gastrointestinal: Yes: Normal Bowel Sounds, Soft Genitourinary: Yes: Preciado Present Musculoskeletal: Yes: WNL Extremities: Yes: WNL Neurological: Yes: Alert, Oriented Psychiatric: Yes: Alert Labs: CBC, BMP 09/07/16 06:50 09/08/16 06:15 Assessment/Plan pyelo uti cathy dm 5. HTN 6. CAD 7. Hematuria urine cx result noted await for identification plan continue abx rest as per =the team lithotripsy stent placement
[2016-09-08] MEDS: LACTATED RINGERS SOLUTION 1,000 ML IV SCH (14:11)
[2016-09-08] MEDS ORDERED: INSULIN DETEMIR 100 UNITS/ML MDV SQ SCH (22:00)
[2016-09-08] MEDS: GABAPENTIN 300 MG CAPSULE (FP) PO SCH (22:19)
[2016-09-08] MEDS ORDERED: INSULIN DETEMIR 100 UNITS/ML MDV SQ ONE (23:00)
[2016-09-09] MEDS ORDERED: PT OWN MED DRAWER 7, Y5N ONE (01:09)
[2016-09-09] MEDS: MEROPENEM 1 GM in DEXTROSE 5%-WATER - 100 ML IVPB SCH ×3 (01:10→17:38)
[2016-09-09] MEDS: HEPARIN NA (PORCINE) 5,000 UNITS/ML 1ML VIAL SQ SCH ×3 (05:44→22:25)
[2016-09-09] MEDS ORDERED: INSULIN (NOVOLOG) ASPART 100 UNITS/ML 10ML VIAL ONE ×3 (06:10→22:40)
[2016-09-09] MEDS: INSULIN SLIDING SCALE (NOVOLOG) 1 VIAL SQ SCH ×4 (06:12→22:26)
[2016-09-09] MEDS: SODIUM CHLORIDE 1,000 ML IV SCH ×2 (06:12→12:27)
--- NOTE | 2016-09-09 08:38 | PN ---
Progress Note (short form) - Note Progress Note: pt stable voidinING WELL NO C/O VSS CTA ABDOMEN SOFT, NT BS POS EXT NO EDEMA A/P: UROLOGICALLY STABLE FOR D/C Problem List - Problems (1) Acute kidney injury Code(s): N17.9 - ACUTE KIDNEY FAILURE, UNSPECIFIED (2) UTI (urinary tract infection) Code(s): N39.0 - URINARY TRACT INFECTION, SITE NOT SPECIFIED Qualifiers: Urinary tract infection type: site unspecified Hematuria presence: without hematuria Qualified Code(s): N39.0 - Urinary tract infection, site not specified (3) Ureterovesical junction (UVJ) obstruction Code(s): N13.5 - CROSSING VESSEL AND STRICTURE OF URETER W/O HYDRONEPHROSIS (4) Acute urinary retention Code(s): R33.8 - OTHER RETENTION OF URINE (5) Angioedema Code(s): T78.3XXA - ANGIONEUROTIC EDEMA, INITIAL ENCOUNTER Qualifiers: Encounter type: initial encounter Qualified Code(s): T78.3XXA - Angioneurotic edema, initial encounter (6) CAD (coronary artery disease) Code(s): I25.10 - ATHSCL HEART DISEASE OF [place] CORONARY ARTERY W/O ANG PCTRS (7) DVT prophylaxis Code(s): [id number] - (8) Diabetes Code(s): E11.9 - TYPE 2 DIABETES MELLITUS WITHOUT COMPLICATIONS (9) Hematuria Code(s): R31.9 - HEMATURIA, UNSPECIFIED (10) Hydroureter Code(s): N13.4 - HYDROURETER (11) Hyperglycemia Code(s): R73.9 - HYPERGLYCEMIA, UNSPECIFIED (12) Hypertension Code(s): I10 - ESSENTIAL (PRIMARY) HYPERTENSION (13) Pyelonephritis Code(s): N12 - TUBULO-INTERSTITIAL NEPHRITIS, NOT SPCF ACUTE OR CHRONIC (14) Vertigo Code(s): R42 - DIZZINESS AND GIDDINESS
[2016-09-09] MEDS: amLODIPine BESYLATE 10 MG TABLET (FP) PO SCH (09:11)
[2016-09-09] MEDS: METOPROLOL TARTRATE 50 MG TABLET (FP) PO SCH ×2 (09:11→22:26)
[2016-09-09] MEDS: TAMSULOSIN HCL 0.4 MG CAP.ER.24H (FP) PO SCH (09:12)
--- NOTE | 2016-09-09 09:15 | PATH ---
Surgical Pathology Report Patient Name: BRYSON LAWRENCE Med. Rec. #: [id number] /Age/Gender: 1950 (Age: 66) / M Account: [id number] Location: 4 SO PEDS/ADOL Taken: 09/08/2016 Received: 09/08/2016 Reported: 09/09/2016 Physicians: Nikolas Rivera M.D. Specimen(s) Received URETERAL STENT Clinical History Obstructive prostate uropathy Left ureteral stent exchange Final Diagnosis LENS BLANK GAUGER, LEFT URETER, REMOVAL: URETERAL STENT (GROSS ONLY). Electronically Signed Kamron Narayan M.D. Gross Description Received fresh, labeled "ureteral stent," is a 37 cm in length blue, coiled portion of tubing, consistent with a ureteral stent. No soft tissue is present. No sections are submitted, gross only. /09/08/2016 saudi09/08/2016
--- NOTE | 2016-09-09 12:11 | PN ---
Progress Note (short form) - Note Progress Note: Anesthesiology Post-op POD #1 s/p Cystoscopy with stent placement under GA. Pt. feels well, is walking about comfortably in NAD. Pain under control, VSS.
--- NOTE | 2016-09-09 14:04 | PN ---
Physical Exam: SUBJECTIVE: Patient seen and examined. He feels well, he says after he urinates he has pain, but this is not new. No fevers overnight OBJECTIVE: Vital Signs Period Temp Pulse Resp BP Sys/Grissom Pulse Ox Last 24 Hr 97.9 F-99.7 F 71-84 16-20 116-128/68-75 95-95 PE Neuro: alert, awake, cn 2-12intact Pulm: CTAB CV: s1 s2 rrr no mrg Abd: abd, soft, nt +bs Ext: warm, no le edema Laboratory Results - last 24 hr 09/08/16 09/08/16 09/09/16 17:09 21:09 05:42 POC Glucometer 322 310 204 09/09/16 11:46 POC Glucometer 269 Active Medications Generic Name Dose Route Start Last Admin Trade Name Freq PRN Reason Stop Dose Admin Acetaminophen 650 mg 09/08/16 12:23 Tylenol - PO Q4H PRN FEVER OR PAIN Amlodipine Besylate 10 mg 09/09/16 10:00 09/09/16 09:11 Norvasc - PO 10 mg DAILY LINDSEY Administration Gabapentin 300 mg 09/08/16 22:00 09/08/16 22:19 Neurontin - PO 300 mg HS LINDSEY Administration Heparin Sodium (Porcine) 5,000 unit 09/08/16 14:00 09/09/16 05:44 Heparin - SQ 5,000 unit TID LINDSEY Administration Lactated Ringer's 1,000 mls @ 75 mls/hr 09/08/16 12:00 09/08/16 14:11 Lactated Ringers Solution IV Not Given ASDIR LINDSEY Meropenem 1 gm/ Dextrose 100 mls @ 100 mls/hr 09/08/16 18:00 09/09/16 09:11 IVPB 100 mls/hr Q8H-IV LINDSEY Administration Protocol Sodium Chloride 1,000 mls @ 60 mls/hr 09/08/16 12:23 09/09/16 06:12 Normal Saline - IV 60 mls/hr ASDIR LINDSEY Administration Insulin Aspart 1 vial 09/08/16 16:30 09/09/16 11:47 Novolog Vial Sliding Scale - SQ 6 units ACHS LINDSEY Administration Protocol Insulin Detemir 13 units 09/08/16 22:00 09/08/16 22:18 Levemir Vial SQ 13 units HS LINDSEY Administration Metoprolol Tartrate 50 mg 09/08/16 22:00 09/09/16 09:11 Lopressor - PO 50 mg BID LINDSEY Administration Morphine Sulfate 2 mg 09/08/16 12:23 Morphine Injection - IVPUSH Q4H PRN PAIN Tamsulosin HCl 0.4 mg 09/09/16 08:30 09/09/16 09:12 Flomax - PO 0.4 mg DAILY@0830 LINDSEY Administration Imaging: - CTAP 09/05: Double-J left-sided ureteral stent in place with hydroureteronephrosis. This is of moderate severity. There is a questionable mid upper pole cyst of the left kidney. Mild diverticulosis of the colon without diverticulitis Assessment: 66 year old male, with pmhx of HTN, SD x2, s/p cardiac stents, CAD, HLD, DM II, and nephrolitiasis, TURP, left kidney stent placement, prostate ca, ESBL UTI in 2016 admitted left flank pain and hematuria. Plan: 1. Left Hydroureteronephrosis d/t obstructing stone - s/p cysto exchange of stent 09/08 - Cleared from urology pov 2. ESBL UTI - Continue Meropenem 1gm q8 (day 5) - ID to transition abx 3. Diabetes Mellitus, uncontrolled (a1c 10.9) - Increase Levemir 15 units HS - ISS, BGM ACHS - Hold home po meds 4. HTN - BP stable - Amlodipine 10 mg daily 5. MARY - Resolved 6. CAD s/p stents - Continue Metoprolol BID - Hold ASA at this time 7. Microscopic Hematuria - Improving per UA 8. DVT ppx - Heparin sq Visit type - Emergency Visit Emergency Visit: Yes ED Registration Date: 09/04/16 Care time: The patient presented to the Emergency Department on the above date and was hospitalized for further evaluation of their emergent condition. - New Patient This patient is new to me today: No - Critical Care Critical Care patient: No
[2016-09-09] MEDS: LACTATED RINGERS SOLUTION 1,000 ML IV SCH (15:23)
--- NOTE | 2016-09-09 16:32 | PN ---
Progress Note, Physician History of Present Illness: patient doing well no new issues burning in urine - Current Medication List Current Medications: Active Medications Acetaminophen (Tylenol -) 650 mg PO Q4H PRN PRN Reason: FEVER OR PAIN Amlodipine Besylate (Norvasc -) 10 mg PO DAILY [facility] Last Admin: 09/09/16 09:11 Dose: 10 mg Gabapentin (Neurontin -) 300 mg PO [facility] Last Admin: 09/08/16 22:19 Dose: 300 mg Heparin Sodium (Porcine) (Heparin -) 5,000 unit SQ TID [facility] Last Admin: 09/09/16 15:27 Dose: 5,000 unit Lactated Ringer's (Lactated Ringers Solution) 1,000 mls @ 75 mls/hr IV ASDIR [facility] Last Admin: 09/09/16 15:23 Dose: Not Given Meropenem 1 gm/ Dextrose 100 mls @ 100 mls/hr IVPB Q8H-IV LINDSEY PRN Reason: Protocol Last Admin: 09/09/16 09:11 Dose: 100 mls/hr Sodium Chloride (Normal Saline -) 1,000 mls @ 60 mls/hr IV ASDIR [facility] Last Admin: 09/09/16 12:27 Dose: 60 mls/hr Insulin Aspart (Novolog Vial Sliding Scale -) 1 vial SQ ACHS [facility] PRN Reason: Protocol Last Admin: 09/09/16 11:47 Dose: 6 units Insulin Detemir (Levemir Vial) 15 units SQ [facility] Metoprolol Tartrate (Lopressor -) 50 mg PO BID [facility] Last Admin: 09/09/16 09:11 Dose: 50 mg Morphine Sulfate (Morphine Injection -) 2 mg IVPUSH Q4H PRN PRN Reason: PAIN Tamsulosin HCl (Flomax -) 0.4 mg PO DAILY@0830 [facility] Last Admin: 09/09/16 09:12 Dose: 0.4 mg - Objective Vital Signs: Vital Signs Temperature 97.8 F 09/09/16 14:28 Pulse Rate 73 09/09/16 14:28 Respiratory Rate 18 09/09/16 14:28 Blood Pressure 129/78 09/09/16 14:28 O2 Sat by Pulse Oximetry (%) 95 09/09/16 09:00 Constitutional: Yes: No Distress, Calm Neck: Yes: Supple Cardiovascular: Yes: Regular Rate and Rhythm Respiratory: Yes: Regular, CTA Bilaterally Gastrointestinal: Yes: Normal Bowel Sounds, Soft Musculoskeletal: Yes: WNL Extremities: Yes: WNL Neurological: Yes: Alert, Oriented Labs: CBC, BMP 09/07/16 06:50 09/08/16 06:15 Assessment/Plan pyelo uti cathy dm 5. HTN 6. CAD 7. Hematuria urine cx result noted await for identification plan continue abx finish abx tomorrow after tomorrows dose abx can be stopped rest as per urology
[2016-09-09] MEDS ORDERED: INSULIN DETEMIR 100 UNITS/ML MDV SQ SCH (22:00)
[2016-09-09] MEDS: GABAPENTIN 300 MG CAPSULE (FP) PO SCH (22:26)
[2016-09-10] MEDS ORDERED: PT OWN MED DRAWER 7, Y5N ONE (02:11)
[2016-09-10] MEDS: MEROPENEM 1 GM in DEXTROSE 5%-WATER - 100 ML IVPB SCH ×2 (02:13→09:59)
[2016-09-10] MEDS: HEPARIN NA (PORCINE) 5,000 UNITS/ML 1ML VIAL SQ SCH ×2 (05:01→14:08)
[2016-09-10] MEDS: INSULIN SLIDING SCALE (NOVOLOG) 1 VIAL SQ SCH ×2 (06:02→10:59)
[2016-09-10] MEDS: METOPROLOL TARTRATE 50 MG TABLET (FP) PO SCH (09:59)
[2016-09-10] MEDS: TAMSULOSIN HCL 0.4 MG CAP.ER.24H (FP) PO SCH (09:59)
[2016-09-10] MEDS: amLODIPine BESYLATE 10 MG TABLET (FP) PO SCH (09:59)
--- NOTE | 2016-09-10 13:03 | DS ---
Physical Exam: SUBJECTIVE: Patient seen and examined. He feels well, no fevers, no over hematuria, He is ready to go home OBJECTIVE: Vital Signs Period Temp Pulse Resp BP Sys/Grissom Pulse Ox Last 24 Hr 97.8 F-98.4 F 59-83 18-20 128-143/74-82 98-98 PE Neuro: alert, awake, cn 2-12intact Pulm: CTAB CV: s1 s2 rrr no mrg Abd: abd, soft, nt +bs Ext: warm, no le edema Laboratory Results - last 24 hr 09/09/16 09/09/16 09/10/16 17:30 20:57 04:55 POC Glucometer 213 297 117 09/10/16 10:58 POC Glucometer 317 HOSPITAL COURSE: Date of Admission:09/04/16 Date of Discharge: 09/10/16 Minutes to complete discharge: 35 Discharge Summary Reason For Visit: ACUTE KIDNEY INJURY, UTI Current Active Problems Acute kidney injury (Acute) UTI (urinary tract infection) (Acute) Ureterovesical junction (UVJ) obstruction (Acute) Hospital Course: Initial Hospital Course: Briefly, this 66 year old male, with a significant past medical history of hypertension, [place] x2, hyperlipidemia, diabetes, coronary artery disease CAD s/p stent, and kidney stones, presented with left flank pain and hematuria. His pain was intermittent and sharp. The patient noticed some blood in his urine earlier in the day. The pain did feel the same as his previous experience with kidney stones. The patient states he feels chills, but denied any recorded fevers. Imaging: - CTAP 09/05: Double-J left-sided ureteral stent in place with hydroureteronephrosis. This is of moderate severity. There is a questionable mid upper pole cyst of the left kidney. Mild diverticulosis of the colon without diverticulitis Subsequent Hospital Course/Progress Note/Discharge Summary by a/p: Assessment: 66 year old male, with pmhx of HTN, NC x2, s/p cardiac stents, CAD, HLD, DM II, and nephrolitiasis, TURP, left kidney stent placement, prostate ca, ESBL UTI in 2016 admitted left flank pain and hematuria. Plan: 1. Left Hydroureteronephrosis d/t obstructing stone - s/p cysto exchange of stent 09/08 - Urology office follow up 2. ESBL UTI - s/p 6 days Meropenem 1gm 3. Diabetes Mellitus, uncontrolled (a1c 10.9) - Home with Levemir 15 units HS - Novolog 4 units BID ACHS - D/w PCP office, re change in insulin and need for f/u next week, pt aware and agrees he has an appt on 09/17 4. HTN - BP stable - Amlodipine 10 mg daily 5. MARY - Resolved 6. CAD s/p stents - Continue Metoprolol BID - Resume ASA on discharge 7. Microscopic Hematuria - Improving per UA Dispo: - Home with PCP and urology follow up Condition: Stable - Instructions Diet, Activity, Other Instructions: Please return to the ED for any new, persistent, or worsening symptoms. Follow up with your PCP in 1 week Resume home medications as directed Stop home diabetes medication Start the insulin regimen prescribed to you from hospital. You will take Levemir 15units in the morning and before bed time. You will take Novolog 4units before meals twice/day. Enclosed is a top cutter for referral for your uncontrolled diabetes Please KEEP your scheduled appt with PCP Dr. Shine Langley on september 17, have him review your blood sugar levels Referrals: Raquel Langley MD [Staff Physician] - Shine Langley MD [Primary Care Provider] - Disposition: HOME - Home Medications Comprehensive Discharge Medication List: Ambulatory Orders Amlodipine Besylate [Norvasc -] 10 mg PO DAILY 01/22/15 Ferrous Sulfate [Feosol] 325 mg PO DAILY 01/22/15 Tamsulosin HCl 0.4 mg PO HS 01/22/15 Tramadol HCl [Ultram] 100 mg PO BID PRN 01/22/15 Esomeprazole Magnesium [Nexium 24Hr] 40 mg PO DAILY 11/22/15 Gabapentin [Neurontin -] 300 mg PO HS 11/22/15 Meclizine HCl [Antivert -] 25 mg PO BID PRN 11/22/15 Metoprolol Tartrate [Lopressor -] 50 mg PO BID 11/22/15 Aspirin [ASA -] 81 mg PO DAILY 01/12/16 Insulin (Levemir) [Levemir Flexpen -] 15 units SQ BID #1 pen 09/10/16 Insulin (Novolog) [Novolog Flexpen] 4 units SQ BIDAC #1 units 09/10/16 This patient is new to me today: No Emergency Visit: Yes ED Registration Date: 09/04/16 Care time: The patient presented to the Emergency Department on the above date and was hospitalized for further evaluation of their emergent condition. Critical Care patient: No - Discharge Referral Referred to [facility] Med P.C.: No
[2016-09-10] MEDS: SODIUM CHLORIDE 1,000 ML IV SCH (14:08)
[2016-09-10 14:12] VITALS: BP 131/72; PULSE 68; TEMP 98.1
--- NOTE | 2016-09-10 15:06 | PN ---
Progress Note, Physician History of Present Illness: patient doing well no new issues - Objective Vital Signs: Vital Signs Temperature 98.1 F 09/10/16 14:00 Pulse Rate 68 09/10/16 14:00 Respiratory Rate 20 09/10/16 14:00 Blood Pressure 131/72 09/10/16 14:00 O2 Sat by Pulse Oximetry (%) 98 09/10/16 10:00 Constitutional: Yes: No Distress, Calm Neck: Yes: Supple, Trachea Midline Cardiovascular: Yes: Regular Rate and Rhythm Gastrointestinal: Yes: Normal Bowel Sounds, Soft Musculoskeletal: Yes: WNL Extremities: Yes: WNL Neurological: Yes: Alert, Oriented Psychiatric: Yes: Alert Labs: CBC, BMP 09/07/16 06:50 09/08/16 06:15 Assessment/Plan pyelo uti cathy dm 5. HTN 6. CAD 7. Hematuria urine cx result noted await for identification plan no abx follow up with uro
== END 2016-09-10 14:59 | disposition home or self-care (01) | DRG 694 ==
LOC: JER 18:57 → JERBED 22:35 → J4S 09-05 20:01
PROVIDERS: ADMIT Internal Medicine; ATTEND Nurse Practitioner Acute Care
PROC: 0T778DZ Dilation of Left Ureter with Intraluminal Device, Via Natural or Artificial Opening Endoscopic (ICD-10-PCS; principal; 2016-09-07)
PROC: 0TP98DZ Removal of Intraluminal Device from Ureter, Via Natural or Artificial Opening Endoscopic (ICD-10-PCS; 2016-09-07)
DX: N13.2 Hydronephrosis with renal and ureteral calculous obstruction (principal); Z87.442 Personal history of urinary calculi; R31.9 Hematuria, unspecified; N17.9 Acute kidney failure, unspecified; I25.10 Atherosclerotic heart disease of native coronary artery without angina pectoris; Z95.5 Presence of coronary angioplasty implant and graft; I25.2 Old myocardial infarction; E78.5 Hyperlipidemia, unspecified; D64.9 Anemia, unspecified; N39.0 Urinary tract infection, site not specified; N13.5 Crossing vessel and stricture of ureter without hydronephrosis; N12 Tubulo-interstitial nephritis, not specified as acute or chronic; E11.65 Type 2 diabetes mellitus with hyperglycemia; Z79.84 Long term (current) use of oral hypoglycemic drugs; K57.90 Diverticulosis of intestine, part unspecified, without perforation or abscess without bleeding; N28.1 Cyst of kidney, acquired; B96.1 Klebsiella pneumoniae [K. pneumoniae] as the cause of diseases classified elsewhere
CPT/HCPCS: 36415; 74176; 76000-TC; 80048; 80053; 81003; 81015; 82550; 82947; 83036; 83690; 83735; 84100; 84484; 85025; 87040; 87086; 87186; 88300-TC; 93005; 93010; 94760; 99284-25; J1644

== ENCOUNTER 2016-10-01 09:18 | Inpatient (IN) | payer OTHER ==
[2016-09-30 15:41] VITALS: BMI 28.8
[2016-10-01] MEDS ORDERED: MIDAZOLAM HCL 2 MG/2 ML SINGLE DOSE VIAL ONE (14:09)
[2016-10-01] MEDS ORDERED: ceFAZolin SODIUM 1 GM VIAL ONE (14:31)
[2016-10-01] MEDS ORDERED: GENTAMICIN SO4 80 MG/2 ML VIAL ONE (14:36)
[2016-10-01] MEDS ORDERED: GENTAMICIN SO4 80 MG/2 ML VIAL IVPB ONE (14:38)
[2016-10-01] MEDS ORDERED: ceFAZolin SODIUM 1 GM VIAL IVPB ONE (14:42)
--- NOTE | 2016-10-01 14:59 | OP ---
Operative Note - Note: Pre-Operative Diagnosis: urinary incontinence Operation: cysto coloplast male sling Post-Operative Diagnosis: Same as Pre-op Surgeon: Raquel Langley Anesthesia: General, Peribulbar Drains & Tubes with Location: [address] Operative Report Dictated: Yes
--- NOTE | 2016-10-01 15:01 | PN ---
Progress Note (short form) - Note Progress Note: stable post op vss afebrile plan: advance diet as tolerated keep wound clear pain management ice packs keflex follow up in office 1pm on tuesday no squatting admit 23 hours
[2016-10-01] MEDS ORDERED: HYDROmorphone HCL CARPU-JECT 2 MG/1 ML DISP.SYRIN IM ONE (15:02)
[2016-10-01] MEDS ORDERED: ALBUTEROL SO4 6.7 GM HFA INHALER IH ONE (15:02)
[2016-10-01] MEDS ORDERED: PHENYLEPHRINE HCL 10 MG/1 ML SINGLE DOSE VIAL ONE (15:13)
[2016-10-01] MEDS ORDERED: DEXTROSE 5%-0.45% SALINE 1,000 ML IV SCH (15:15)
[2016-10-01] MEDS ORDERED: MECLIZINE HCL 12.5 MG TABLET PO PRN (15:28)
[2016-10-01] MEDS ORDERED: INSULIN SQ SCH (16:30)
[2016-10-01] MEDS ORDERED: ONDANSETRON 4 MG/2 ML VIAL IVPUSH PRN (17:13)
[2016-10-01] MEDS: ALBUTEROL SO4 0.083% IH SOL 2.5 MG/3 ML VIAL.NEB. NEB ONE (17:15)
[2016-10-01] MEDS: HYDROmorphone HCL CARPU-JECT 2 MG/1 ML DISP.SYRIN ONE ×3 (17:30→19:05)
[2016-10-01] MEDS ORDERED: INSULIN DETEMIR SQ SCH (22:00)
[2016-10-01] MEDS ORDERED: [UNRECOGNIZED DRUG - OTHER] SQ SCH (22:00)
[2016-10-01] MEDS: METOPROLOL TARTRATE 50 MG TABLET (FP) PO SCH (22:58)
[2016-10-01] MEDS: traMADol HCL 50 MG TABLET PO PRN (22:58)
[2016-10-01] MEDS: GABAPENTIN 300 MG CAPSULE (FP) PO SCH (22:59)
[2016-10-01] MEDS: TAMSULOSIN HCL 0.4 MG CAP.ER.24H (FP) PO SCH (22:59)
[2016-10-01] MEDS: FERROUS SO4 325 MG TABLET (FP) PO SCH (22:59)
[2016-10-01] MEDS: INSULIN DETEMIR 100 UNITS/ML MDV SQ SCH (23:00)
[2016-10-01] MEDS: CEPHALEXIN MONOHYDRATE 500 MG CAPSULE (UD) PO SCH (23:01)
[2016-10-01] MEDS ORDERED: INSULIN (NOVOLOG) ASPART 100 UNITS/ML 10ML VIAL SQ ONE (23:50)
--- NOTE | 2016-10-02 01:27 | CONSULT ---
Consultation: REQUESTING PROVIDER: Raquel Langley MD CONSULT REQUEST: We have been asked to medically evaluate this patient for control of diabetes. HISTORY OF PRESENT ILLNESS: Patient is a 66 year old male s/p cysto coloplast male sling for male incontinence. VS stable Afebrile PMH: s/p bladder mass resection in 2016, prostate ca, hypertension, CAD s/p [place] s /p stent 2011, NIDDM, and hyperlipidemia. REVIEW OF SYSTEMS: CONSTITUTIONAL: Absent: fever, chills, diaphoresis, generalized weakness, malaise, loss of appetite, weight change HEENT: Absent: rhinorrhea, nasal congestion, throat pain, throat swelling, difficulty swallowing, mouth swelling, ear pain, eye pain, visual changes CARDIOVASCULAR: Absent: chest pain, syncope, palpitations, irregular heart rate, lightheadedness , peripheral edema RESPIRATORY: Absent: cough, shortness of breath, dyspnea with exertion, orthopnea, wheezing, stridor, hemoptysis GASTROINTESTINAL: Absent: abdominal pain, abdominal distension, nausea, vomiting, diarrhea, constipation, melena, hematochezia GENITOURINARY: Absent: dysuria, frequency, urgency, hesitancy, hematuria, flank pain, genital pain MUSCULOSKELETAL: Present: pelvic pain upon movement of right limb pain unquantified. Absent: myalgia, arthralgia, joint swelling, back pain, neck pain SKIN: Absent: rash, itching, pallor HEMATOLOGIC/IMMUNOLOGIC: Absent: easy bleeding, easy bruising, lymphadenopathy, frequent infections ENDOCRINE: Absent: unexplained weight gain, unexplained weight loss, heat intolerance, cold intolerance NEUROLOGIC: Absent: headache, focal weakness or paresthesias, dizziness, unsteady gait, seizure, mental status changes, bladder or bowel incontinence PSYCHIATRIC: Absent: anxiety, depression, suicidal or homicidal ideation, hallucinations. PHYSICAL EXAMINATION Vital Signs - 24 hr 10/01/16 10/01/16 10/01/16 10:03 10:07 16:34 Temperature 97.7 F 98.4 F Pulse Rate 63 82 Respiratory 18 16 Rate Blood Pressure 130/79 135/77 O2 Sat by Pulse 96 100 Oximetry (%) 10/01/16 10/01/16 10/01/16 16:50 17:05 17:20 Temperature Pulse Rate 79 80 83 Respiratory 20 22 20 Rate Blood Pressure 153/81 133/85 142/75 O2 Sat by Pulse 93 L 94 L 94 L Oximetry (%) 10/01/16 10/01/16 10/01/16 17:35 17:50 18:05 Temperature Pulse Rate 83 83 83 Respiratory 18 16 16 Rate Blood Pressure 148/81 165/80 133/71 O2 Sat by Pulse 94 L 94 L 96 Oximetry (%) 10/01/16 10/01/16 10/01/16 18:20 18:35 18:50 Temperature Pulse Rate 86 83 81 Respiratory 16 16 18 Rate Blood Pressure 139/76 144/74 147/78 O2 Sat by Pulse 95 95 95 Oximetry (%) 10/01/16 10/01/16 10/01/16 19:05 19:20 19:35 Temperature Pulse Rate 81 18 L 84 Respiratory 16 16 18 Rate Blood Pressure 147/78 142/78 121/81 O2 Sat by Pulse 98 95 95 Oximetry (%) 10/01/16 10/01/16 10/01/16 19:50 20:05 20:20 Temperature Pulse Rate 82 86 84 Respiratory 18 18 14 Rate Blood Pressure 131/80 147/58 147/82 O2 Sat by Pulse 95 95 95 Oximetry (%) 10/01/16 10/01/16 20:35 20:50 Temperature 98.9 F Pulse Rate 68 84 Respiratory 20 16 Rate Blood Pressure 158/72 158/77 O2 Sat by Pulse 99 97 Oximetry (%) GENERAL: Awake, alert, and fully oriented, in no acute distress. HEAD: Normal with no signs of trauma. EYES: +right eye cataract. Pupils equal and round, extraocular movements intact , sclera anicteric, conjunctiva clear. No lid lag. EARS, NOSE, THROAT: Ears normal, nares patent, oropharynx clear without exudates. Moist mucous membranes. NECK: Normal range of motion, supple without lymphadenopathy, JVD, or masses. LUNGS: Breath sounds equal, clear to auscultation bilaterally. No wheezes, and no crackles. No accessory muscle use. HEART: Regular rate and rhythm, normal S1 and S2 without murmur, rub or gallop. ABDOMEN: +Superpubic wound with clean dressing. Soft, nontender, not distended, normoactive bowel sounds, no guarding, no rebound, no masses. No hepatomegaly or splenomegaly. UPPER EXTREMITIES: 2+ pulses, warm, well-perfused. No cyanosis. No clubbing. Cap refill <2 seconds. No peripheral edema. LOWER EXTREMITIES: 2+ pulses, warm, well-perfused. No calf tenderness. No peripheral edema. NEUROLOGICAL: Cranial nerves II-XII intact. Normal speech. PSYCHIATRIC: Cooperative. Good eye contact. Appropriate mood and affect. SKIN: Warm, dry, normal turgor, no rashes or lesions noted. Laboratory Results - last 24 hr 10/01/16 10/01/16 10:09 21:45 POC Glucometer 238 355 Active Medications Generic Name Dose Route Start Last Admin Trade Name Freq PRN Reason Stop Dose Admin Amlodipine Besylate 10 mg 10/02/16 10:00 Norvasc - PO DAILY [facility] Aspirin 81 mg 10/02/16 10:00 Asa - PO DAILY [facility] Cephalexin HCl 500 mg 10/01/16 18:00 10/01/16 23:01 Keflex - PO 10/02/16 17:59 500 mg Q6HPO LINDSEY Administration Fentanyl 50 mcg 10/01/16 17:13 10/01/16 17:05 Sublimaze Injection - IVPUSH 10/04/16 17:14 50 mcg [id number] PRN Administration PAIN Ferrous Sulfate 325 mg 10/01/16 22:00 10/01/16 22:59 Feosol - PO 325 mg BID LINDSEY Administration Gabapentin 300 mg 10/01/16 22:00 10/01/16 22:59 Neurontin - PO 300 mg HS LINDSEY Administration Dextrose/Sodium Chloride 1,000 mls @ 100 mls/hr 10/01/16 15:15 10/01/16 23:05 D5-1/2ns - IV 100 mls/hr ASDIR LINDSEY Administration Insulin Aspart 1 vial 10/02/16 07:00 Novolog Vial Sliding Scale - SQ ACHS [facility] Protocol Insulin Detemir 15 units 10/01/16 22:00 10/01/16 23:00 Levemir Vial SQ 15 units BID@0700,2200 LINDSEY Administration Meclizine HCl 25 mg 10/01/16 15:28 Antivert - PO Q12H PRN VERTIGO Metoprolol Tartrate 50 mg 10/01/16 22:00 10/01/16 22:58 Lopressor - PO 50 mg BID LINDSEY Administration Pantoprazole Sodium 40 mg 10/02/16 10:00 Protonix - PO DAILY LINDSEY Tamsulosin HCl 0.4 mg 10/01/16 22:00 04/07/17 22:59 Flomax - PO 0.4 mg BID LINDSEY Administration Tramadol HCl 100 mg 10/01/16 15:28 10/01/16 22:58 Ultram - PO 100 mg Q12H PRN Administration PAIN ASSESSMENT/PLAN: Uncontrolled DM -Discontinue D5 half NS and switch to NS at 100 CC -Continue Levemir 15 units BID -RISS ACHS -Continue medications as ordered and repeat CMP in AM Dispo: We will continue to follow the patient. Thank you for this consultative opportunity. Documentation prepared by GELA Warren, acting as medical records manager for Leslie Zayas MD. <Erika Jackson - Last Filed: 10/02/16 02:20> Consultation: CONSULT REQUEST: We have been asked to medically evaluate this patient for control of Diabetes. <Leslie Zayas - Last Filed: 10/14/16 23:44> Visit type - Emergency Visit Emergency Visit: Yes ED Registration Date: 10/02/16 Care time: The patient presented to the Emergency Department on the above date and was hospitalized for further evaluation of their emergent condition. - New Patient This patient is new to me today: Yes Date on this admission: 10/14/16 - Critical Care Critical Care patient: No <Leslie Zayas - Last Filed: 10/14/16 23:44>
[2016-10-02] MEDS ORDERED: SODIUM CHLORIDE 1,000 ML IV SCH (02:15)
[2016-10-02] MEDS: INSULIN DETEMIR 100 UNITS/ML MDV SQ SCH ×2 (06:38→22:17)
[2016-10-02] MEDS: CEPHALEXIN MONOHYDRATE 500 MG CAPSULE (UD) PO SCH ×3 (06:38→13:11)
[2016-10-02] MEDS: INSULIN SLIDING SCALE (NOVOLOG) 1 VIAL SQ SCH ×4 (06:39→22:19)
[2016-10-02] MEDS ORDERED: INSULIN (NOVOLOG) ASPART 100 UNITS/ML 10ML VIAL SQ SCH (07:00)
[2016-10-02 09:28] LABS: ALBUMIN 2.8 g/dl (3.4-5.0); ALK PHOS 122 U/L (45-117); ANION GAP 11 (8-16); BILIRUBIN,TOTAL 0.3 mg/dL (0.2-1.0); CALCIUM 7.9 mg/dL (8.5-10.1); CO2 26 mmol/L (21-32); COCKROFT - GAULT 69.27; CREATININE 1.1 mg/dL (0.7-1.3); GLUCOSE,RANDOM 298 mg/dL (74-106); SGOT/AST 16 U/L (15-37); SGPT/ALT 21 U/L (12-78); TOT PROT 6.6 g/dl (6.4-8.2)
[2016-10-02] MEDS ORDERED: PATIENT'S OWN MEDICATION (NON-FORMULARY) (Esomeprazole Magnesium [Nexium 24hr] 40 MG) PO SCH (10:00)
[2016-10-02] MEDS: TAMSULOSIN HCL 0.4 MG CAP.ER.24H (FP) PO SCH ×2 (10:31→22:16)
[2016-10-02] MEDS: ALBUTEROL SO4 0.083% IH SOL 2.5 MG/3 ML VIAL.NEB. NEB ONE (10:31)
[2016-10-02] MEDS: FERROUS SO4 325 MG TABLET (FP) PO SCH ×2 (10:32→22:16)
[2016-10-02] MEDS: PANTOPRAZOLE 40 MG TABLET (FP) PO SCH (10:32)
[2016-10-02] MEDS: METOPROLOL TARTRATE 50 MG TABLET (FP) PO SCH ×2 (10:32→22:17)
[2016-10-02] MEDS: amLODIPine BESYLATE 10 MG TABLET (FP) PO SCH (10:32)
[2016-10-02] MEDS: ASPIRIN 81 MG CHEWABLE TABLETS PO SCH (10:32)
--- NOTE | 2016-10-02 13:16 | HP ---
CHIEF COMPLAINT:Hyperglycemia PCP:Shine Langley HISTORY OF PRESENT ILLNESS: 66M PMH of HTN HLD uncontrolled DM CAD s/p stent prostate Ca Incontinence Vertigo neuropathy was initially placed on observation for 23 hour stay after a cystoscopy for sling placement for male incontinence. Medical hospitalist team called for admission as the patient has had uncontrolled blood glucose while in the hospital. Seen by medical service as a consult for medical management of diabetes but now Dr. Langley requesting admission to our service as initial recommendations to continue his levemir and stop dextrose containing fluids have failed. He denies nausea vomiting fevers chills chest pain shortness of breath diarrhea or constipation. Recently discharged about 3 weeks ago for ESBL UTI and hospital course also complicated by uncontrolled hyperglycemia. per patient his finger sticks are between 180-500 at home. Recent Travel: Denies PAST MEDICAL HISTORY:As above Prostate Cancer history of bladder mass PAST SURGICAL HISTORY:Cysto Stent Social History: Smoking:Denies Alcohol:Denies Drugs: Denies Family History: Allergies lisinopril Allergy (Severe, Verified 10/01/16 09:57) Swelling HOME MEDICATIONS: Home Medications Medication Instructions Recorded Amlodipine Besylate [Norvasc -] 10 mg PO DAILY 01/22/15 Ferrous Sulfate [Feosol] 325 mg PO BID 01/22/15 Tamsulosin HCl 0.4 mg PO BID 01/22/15 Tramadol HCl [Ultram] 100 mg PO BID PRN 01/22/15 Esomeprazole Magnesium [Nexium 40 mg PO DAILY 11/22/15 24Hr] Gabapentin [Neurontin -] 300 mg PO HS 11/22/15 Meclizine HCl [Antivert -] 25 mg PO BID PRN 11/22/15 Metoprolol Tartrate [Lopressor -] 50 mg PO BID 11/22/15 Aspirin [ASA -] 81 mg PO DAILY 01/12/16 Insulin (Levemir) [Levemir Flexpen 15 units SQ BID #1 pen 09/10/16 -] Insulin (Novolog) [Novolog Flexpen] 4 units SQ BIDAC #1 units 09/10/16 REVIEW OF SYSTEMS CONSTITUTIONAL: Absent: fever, chills, diaphoresis, generalized weakness, malaise, loss of appetite, weight change HEENT: Absent: rhinorrhea, nasal congestion, throat pain, throat swelling, difficulty swallowing, mouth swelling, ear pain, eye pain, visual changes CARDIOVASCULAR: Absent: chest pain, syncope, palpitations, irregular heart rate, lightheadedness , peripheral edema RESPIRATORY: Absent: cough, shortness of breath, dyspnea with exertion, orthopnea, wheezing, stridor, hemoptysis GASTROINTESTINAL: Absent: abdominal pain, abdominal distension, nausea, vomiting, diarrhea, constipation, melena, hematochezia GENITOURINARY: Absent: dysuria, frequency, urgency, hesitancy, hematuria, flank pain, genital pain MUSCULOSKELETAL: Absent: myalgia, arthralgia, joint swelling, back pain, neck pain SKIN: Absent: rash, itching, pallor HEMATOLOGIC/IMMUNOLOGIC: Absent: easy bleeding, easy bruising, lymphadenopathy, frequent infections ENDOCRINE: Absent: unexplained weight gain, unexplained weight loss, heat intolerance, cold intolerance NEUROLOGIC: Absent: headache, focal weakness or paresthesias, dizziness, unsteady gait, seizure, mental status changes, bladder or bowel incontinence PSYCHIATRIC: Absent: anxiety, depression, suicidal or homicidal ideation, hallucinations. PHYSICAL EXAMINATION Vital Signs - 24 hr 10/01/16 10/01/16 10/01/16 16:34 16:50 17:05 Temperature 98.4 F Pulse Rate 82 79 80 Respiratory 16 20 22 Rate Blood Pressure 135/77 153/81 133/85 O2 Sat by Pulse 100 93 L 94 L Oximetry (%) 10/01/16 10/01/16 10/01/16 17:20 17:35 17:50 Temperature Pulse Rate 83 83 83 Respiratory 20 18 16 Rate Blood Pressure 142/75 148/81 165/80 O2 Sat by Pulse 94 L 94 L 94 L Oximetry (%) 10/01/16 10/01/16 10/01/16 18:05 18:20 18:35 Temperature Pulse Rate 83 86 83 Respiratory 16 16 16 Rate Blood Pressure 133/71 139/76 144/74 O2 Sat by Pulse 96 95 95 Oximetry (%) 10/01/16 10/01/16 10/01/16 18:50 19:05 19:20 Temperature Pulse Rate 81 81 18 L Respiratory 18 16 16 Rate Blood Pressure 147/78 147/78 142/78 O2 Sat by Pulse 95 98 95 Oximetry (%) 10/01/16 10/01/16 10/01/16 19:35 19:50 20:05 Temperature Pulse Rate 84 82 86 Respiratory 18 18 18 Rate Blood Pressure 121/81 131/80 147/58 O2 Sat by Pulse 95 95 95 Oximetry (%) 10/01/16 10/01/16 10/01/16 20:20 20:35 20:50 Temperature 98.9 F Pulse Rate 84 68 84 Respiratory 14 20 16 Rate Blood Pressure 147/82 158/72 158/77 O2 Sat by Pulse 95 99 97 Oximetry (%) 10/01/16 10/02/16 10/02/16 21:15 02:00 06:58 Temperature 97.3 F L 98.9 F 98.1 F Pulse Rate 78 80 78 Respiratory 18 16 16 Rate Blood Pressure 147/79 143/80 131/74 O2 Sat by Pulse Oximetry (%) 10/02/16 10:00 Temperature 98.4 F Pulse Rate 79 Respiratory 18 Rate Blood Pressure 140/81 O2 Sat by Pulse Oximetry (%) GENERAL: Awake, alert, and fully oriented, in no acute distress. HEAD: Normal with no signs of trauma. EYES: Pupils equal, round and reactive to light, EOMI EARS, NOSE, THROAT: Moist mucous membranes. NECK: supple without JVD LUNGS: Breath sounds equal, clear to auscultation bilaterally. No wheezes, and no crackles. No accessory muscle use. HEART: Regular rate and rhythm, normal S1 and S2 without murmur, rub or gallop. ABDOMEN: Soft, nontender, not distended, normoactive bowel sounds, no guarding, no rebound, no masses. Valero in place with clear light yellow colored urine in valero bag MUSCULOSKELETAL: No CVA tenderness. UPPER EXTREMITIES:warm, well-perfused. No peripheral edema. LOWER EXTREMITIES: warm, well-perfused. No calf tenderness. No peripheral edema. NEUROLOGICAL: Cranial nerves II-XII intact. Normal speech. Laboratory Results - last 24 hr 10/01/16 10/02/16 10/02/16 21:45 06:34 08:40 Sodium 137 Potassium 3.4 L Chloride 100 Carbon Dioxide 26 Anion Gap 11 BUN 8 Creatinine 1.1 Creat Clearance w eGFR > 60 POC Glucometer 355 272 Random Glucose 298 H D Calcium 7.9 L Total Bilirubin 0.3 D AST 16 D ALT 21 D Alkaline Phosphatase 122 H D Total Protein 6.6 Albumin 2.8 L 10/02/16 11:38 Sodium Potassium Chloride Carbon Dioxide Anion Gap BUN Creatinine Creat Clearance w eGFR POC Glucometer 419 Random Glucose Calcium Total Bilirubin AST ALT Alkaline Phosphatase Total Protein Albumin ASSESSMENT/PLAN: 66M multiple co-morbidities presents to the hospital post-op after cystoscopy supposed to be here for 23 hours post op but needs inpatient admission for uncontrolled diabetes. Diabetes: uncontrolled hyperglycemia. No Ketones no anion gap Pharmacy called and medications confiremed Will increase levemir to 18 units BID finger sticks for BGM ACHS increase ISS to be more aggressive with coverage there are no signs of infection on exam or on history taking that would make me suspect infection as a reason for hyperglycemia. Dietary consult for teaching HbA1C 10.9 done about 3 weeks ago HTN: Well controlled at this time Will continue home meds Norvasc 10mg po daily metoprolol 50mg po BID HLD: Lipitor 40mg po HS CAD s/p Stent: continue aspirin continue statin BP control Incontinence s/p Sling continue valero will need valero on discharge follow up with urology Continue flomax Vertigo: asymptomatic continue meclizine Neurropathy: continue gabapentin FEN: NS @ 100ml/hr-->euvolemic stop IVF hypokalemia-replete and recheck BMP diabetic diet PPx: HSQ protonix-patient on nexium at home for GERD no PT consult necessary at this time Visit type - Emergency Visit Emergency Visit: No - New Patient This patient is new to me today: Yes Date on this admission: 10/02/16 - Critical Care Critical Care patient: No
--- NOTE | 2016-10-02 13:38 | PN ---
Teaching Attending Note Name of Resident: Robert Hernandez ATTENDING PHYSICIAN STATEMENT I saw and evaluated the patient. I reviewed the resident's note and discussed the case with the resident. I agree with the resident's findings and plan as documented. SUBJECTIVE: The patient is a 66 year old male with a significant past medical history of HTN , HLD, CAD, DM2, s/p cystoscopy / male sling for male incontinence yesterday. We were consulted earlier for hyperglycemia and have now been asked to admit the patient to inpatient services for continued care. OBJECTIVE: Vitals noted Labs noted ASSESSMENT AND PLAN: -Hyperglycemia A recent HbA1a was over 10, indicative of chronic hyperglycemia There is no evidence of HHS or DKA We discontinued D51/2NS and switched to NS at 100 CC earlier today He is euvolemic, will stop fluids He received a single dose of Novolog 8 units SQ just now Increase Levemir to 18 units BID RISS ACHS -S/P Urological procedure Urology will continue to follow See resident note for full details
[2016-10-02] MEDS: POTASSIUM CHLORIDE TABS 20 MEQ TABLET.ER (FP) PO SCH ×2 (13:42→22:16)
[2016-10-02] MEDS ORDERED: INSULIN (NOVOLOG) ASPART 100 UNITS/ML 10ML VIAL SQ ONE (13:45)
[2016-10-02] MEDS ORDERED: INSULIN DETEMIR 100 UNITS/ML MDV SQ STA (13:47)
[2016-10-02] MEDS: traMADol HCL 50 MG TABLET PO PRN (17:03)
[2016-10-02] MEDS ORDERED: ATORVASTATIN CA 40 MG TABLET (FP) PO SCH (22:00)
[2016-10-02] MEDS: GABAPENTIN 300 MG CAPSULE (FP) PO SCH (22:16)
[2016-10-02] MEDS: HEPARIN NA (PORCINE) 5,000 UNITS/ML 1ML VIAL SQ SCH (22:17)
[2016-10-03] MEDS: HEPARIN NA (PORCINE) 5,000 UNITS/ML 1ML VIAL SQ SCH (06:36)
[2016-10-03] MEDS: INSULIN DETEMIR 100 UNITS/ML MDV SQ SCH (06:37)
[2016-10-03] MEDS: INSULIN SLIDING SCALE (NOVOLOG) 1 VIAL SQ SCH (06:39)
[2016-10-03 07:33] LABS: MCH 26.2 pg (25.7-33.7); MCHC 32.3 g/dl (32.0-35.9); MEAN PLT VOLUME 12.6 fl (7.5-11.1); RDW 17.6 % (11.9-15.9); WHITE BLOOD COUNT 7.7 K/mm3 (4.0-10.0)
[2016-10-03 07:50] VITALS: PULSE 74
[2016-10-03 08:07] LABS: CALCIUM 8.2 mg/dL (8.5-10.1); COCKROFT - GAULT 84.67; CREATININE 0.9 mg/dL (0.7-1.3)
--- NOTE | 2016-10-03 08:11 | DS ---
Physical Exam: SUBJECTIVE: Patient seen and examined. He has incision pain however pain medication helps. Denies fever chills OBJECTIVE: Vital Signs Period Temp Pulse Resp BP Sys/Grissom Pulse Ox Last 24 Hr 97.5 F-99.6 F 69-79 18-30 134-145/68-81 98-98 PE Neuro: alert, awake, cn 2-12intact Pulm: CTAB CV: s1 s2 rrr no mrg Abd: s nt nd + bs : perineal gunjan CDI + valero Ext:warm, no le edema Laboratory Results - last 24 hr 10/02/16 10/02/16 10/02/16 08:40 11:38 16:53 Sodium 137 Potassium 3.4 L Chloride 100 Carbon Dioxide 26 Anion Gap 11 BUN 8 Creatinine 1.1 Creat Clearance w eGFR > 60 POC Glucometer 419 228 Random Glucose 298 H D Calcium 7.9 L Total Bilirubin 0.3 D AST 16 D ALT 21 D Alkaline Phosphatase 122 H D Total Protein 6.6 Albumin 2.8 L HOSPITAL COURSE: Date of Admission:10/02/16 Date of Discharge: 10/03/16 Minutes to complete discharge: 35 Discharge Summary Reason For Visit: URINARY INCONTINENCE Hospital Course: Initial Hospital Course: Briefly, this 66 male PMH of HTN, HLD uncontrolled DM CAD s/p stent prostate Ca Incontinence Vertigo neuropathy was initially placed on observation for 23 hour stay after a cystoscopy for sling placement for male incontinence. Medicine team called fpr consult for uncontrolled blood glucose while in the hospital. Pt recently discharged about 3 weeks ago for ESBL UTI and hospital course also complicated by uncontrolled hyperglycemia. Per patient his finger sticks are between 180-500 at home. Subsequent Hospital Course/Progress Note/Discharge Summary by a/p: Assessment: 66 year old male admitted post-op after cystoscopy for uncontrolled diabetes. Plan: 1. Uncontrolled DM II - Sugars stable this AM - Non infectious appearing on discharge - Anion Gap closed - Increase home levemir to 18units BID - Novolog 5units AC meals - ISS ACHS - HbA1C 10.9 08/2016 - Endocrine referral enclosed - D/w Son and pt at bedside 2. Incontinence s/p cystocopy with sling - Continue valero on discharge - Folmax daily - Ultram PRN pain - Urology office follow up next week Tuesday 1pm 3. HTN - Norvasc 10mg po daily - Metoprolol 50mg po BID 4. HLD - Lipitor 40mg po HS 5. CAD s/p Stent - ASA/ Statin 6. Vertigo - Meclizine 7. Neurropathy - Gabapentin Dispo: - Home with above meds, urology follow up on 10/04 1pm - PCP follow up in 1 week Condition: Stable - Instructions Diet, Activity, Other Instructions: Please return to the ED for any new, persistent, or worsening symptoms. Follow up with your primary doctor in 1 week Followup with urologist in 1 week for post op management Referral for Diabetes enclosed, make appt for following Referrals: Saqib Trinidad MD [Staff Physician] - 1 Week (Diabetes mangagment ) Raquel Langley MD [Staff Physician] - 1 Week Shine Langley MD [Primary Care Provider] - 1 Week Disposition: HOME - Home Medications Comprehensive Discharge Medication List: Ambulatory Orders Amlodipine Besylate [Norvasc -] 10 mg PO DAILY 01/22/15 Ferrous Sulfate [Feosol] 325 mg PO BID 01/22/15 Tamsulosin HCl 0.4 mg PO BID 01/22/15 Tramadol HCl [Ultram] 100 mg PO BID PRN 01/22/15 Esomeprazole Magnesium [Nexium 24Hr] 40 mg PO DAILY 11/22/15 Gabapentin [Neurontin -] 300 mg PO HS 11/22/15 Meclizine HCl [Antivert -] 25 mg PO BID PRN 11/22/15 Metoprolol Tartrate [Lopressor -] 50 mg PO BID 11/22/15 Aspirin [ASA -] 81 mg PO DAILY 01/12/16 Atorvastatin Ca [Lipitor] 40 mg PO HS 10/02/16 Insulin (Levemir) [Levemir Flexpen -] 18 units SQ BID #1 pen 10/03/16 Insulin Aspart [Novolog Flexpen] 5 unit SQ AC #1 insuln.pen 10/03/16 Insulin Sliding Scale [Novolog Vial Sliding Scale -] 1 vial SQ ACHS #1 units 03/13 This patient is new to me today: Yes Date on this admission: 10/03/16 Emergency Visit: Yes ED Registration Date: 10/02/16 Care time: The patient presented to the Emergency Department on the above date and was hospitalized for further evaluation of their emergent condition. Critical Care patient: No - Discharge Referral Referred to [facility] No
[2016-10-03 09:53] VITALS: BP 138/76; TEMP 98.9
[2016-10-03] MEDS: traMADol HCL 50 MG TABLET PO PRN (10:00)
[2016-10-03] MEDS: PANTOPRAZOLE 40 MG TABLET (FP) PO SCH (10:43)
[2016-10-03] MEDS: FERROUS SO4 325 MG TABLET (FP) PO SCH (10:43)
[2016-10-03] MEDS: METOPROLOL TARTRATE 50 MG TABLET (FP) PO SCH (10:43)
[2016-10-03] MEDS: amLODIPine BESYLATE 10 MG TABLET (FP) PO SCH (10:43)
[2016-10-03] MEDS: ASPIRIN 81 MG CHEWABLE TABLETS PO SCH (10:43)
[2016-10-03] MEDS: TAMSULOSIN HCL 0.4 MG CAP.ER.24H (FP) PO SCH (10:43)
[2016-10-03 12:31] LABS: PLATELET COMMENT2 NO CLUMPING NOTED; PLATELET COUNT 69 K/MM3 (134-434); PLATELET ESTIMATE DECREASED (NORMAL)
== END 2016-10-03 12:39 | disposition home or self-care (01) | DRG 983 ==
LOC: JASU-SURG 09:18 → JASUSAT 09:18 → J7W 21:22 → JERBED 10-02 14:51 → J7W 10-02 15:18
PROVIDERS: ADMIT Family Medicine; ATTEND Nurse Practitioner Acute Care
PROC: 0TQD8ZZ Repair Urethra, Via Natural or Artificial Opening Endoscopic (ICD-10-PCS; principal; 2016-10-01 11:00)
DX: E11.65 Type 2 diabetes mellitus with hyperglycemia (principal); I10 Essential (primary) hypertension; I25.10 Atherosclerotic heart disease of native coronary artery without angina pectoris; Z98.61 Coronary angioplasty status; E78.5 Hyperlipidemia, unspecified; R42 Dizziness and giddiness; G62.9 Polyneuropathy, unspecified; E87.6 Hypokalemia; R32 Unspecified urinary incontinence; Z85.46 Personal history of malignant neoplasm of prostate
CPT/HCPCS: 36415; 80048; 80053; 85027; 94760; J1644

== ENCOUNTER 2016-10-14 18:31 | Inpatient (IN) | payer OTHER ==
[2016-10-14] MEDS ORDERED: SODIUM CHLORIDE 0.9% 1000 ML INFUS.BAG IV PRN (19:33)
--- NOTE | 2016-10-14 19:50 | PDOC ---
History of Present Illness - General Chief Complaint: Pain Stated Complaint: FLANK PAIN, ACUTE Time Seen by Provider: 10/14/16 19:14 - History of Present Illness Initial Comments: 10/14/16 19:44 CHIEF COMPLAINT: left flank pain HISTORY OF PRESENT ILLNESS: 66 yo M with significant PMH of HTN, [place] x2, HLD, uncontrolled diabetes, CAD s/p stent, kidney stones, multidrugresistent UTI, s/ p radical prostatectomy presents to ED with left flank pain since this morning. Patient reports fever, chills, but denies any nausea, vomiting, diarrhea. No recent travel or sick contacts. PAST MEDICAL HISTORY: as per HPI FAMILY HISTORY: Denies SOCIAL HISTORY: Denies tobacco, alcohol, illicit drug use. SURGICAL HISTORY: Denies ALLERGIES: lisinopril REVIEW OF SYSTEMS General/Constitutional: Subjective fever, chills. Denies weakness, weight change. HEENT: Denies change in vision. Denies ear pain or discharge. Denies sore throat. Cardiovascular: Denies chest pain or shortness of breath. Respiratory: Denies cough, wheezing, or hemoptysis. Gastrointestinal: Nausea. Denies vomiting, diarrhea or constipation. Denies rectal bleeding. Genitourinary: Left flank pain since this morning, denies pain to penis/scrotum. Musculoskeletal: Denies joint or muscle swelling or pain. Denies neck or back pain. Skin and breasts: Denies rash or easy bruising. PHYSICAL EXAM General Appearance: Well-appearing, appropriately dressed. No apparent distress , no intoxication. HEENT: EOMI, PERRLA, normal ENT inspection, normal voice, TMs normal, pharynx normal. No conjunctival pallor. No photophobia, scleral icterus. Neck: Supple. Trachea midline. No tenderness, rigidity, carotid bruit, stridor , lymphadenopathy, or thyromegaly. Respiratory/Chest: Lungs CTAB. Cardiovascular: RRR. S1, S2. Vascular Pulses: Dorsalis-Pedis (R): 2+, Dorsalis-Pedis (L): 2+ Gastrointestinal/Abdominal: Left CVA tenderness. Normal bowel sounds. Abdomen soft, non-distended. No tenderness or rebound tenderness. No organomegaly, pulsatile mass, guarding, hernia, hepatomegaly, splenomegaly. Genitourinary: Indwelling valero catheter, prosthetic right testicle. Lymphatic: No adenopathy, tenderness. Musculoskeletal/Extremities: Normal inspection. FROM of all extremities, normal capillary refill. Pelvis Stable. No CVA tenderness. No tenderness to extremities, pedal edema, swelling, erythema or deformity. Integumentary: Appropriate color, dry, warm. No cyanosis, erythema, jaundice or rash Neurologic: tire bagger II-XII intact. Fully oriented, alert. Appropriate mood/affect. Motor strength 5/5. No appreciable EOM palsy, facial droop or sensory deficit. Past History - Past Medical History Allergies/Adverse Reactions: Allergies Allergy/AdvReac Type Severity Reaction Status Date / Time lisinopril Allergy Severe Swelling Verified 10/14/16 18:39 Home Medications: Ambulatory Orders Amlodipine Besylate [Norvasc -] 10 mg PO DAILY 01/22/15 Ferrous Sulfate [Feosol] 325 mg PO BID 01/22/15 Tamsulosin HCl 0.4 mg PO DAILY 01/22/15 Tramadol HCl [Ultram] 50 mg PO TID PRN 01/22/15 Esomeprazole Magnesium [Nexium 24Hr] 40 mg PO DAILY 11/22/15 Gabapentin [Neurontin -] 300 mg PO HS 11/22/15 Meclizine HCl [Antivert -] 25 mg PO BID PRN 11/22/15 Metoprolol Tartrate [Lopressor -] 50 mg PO BID 11/22/15 Atorvastatin Ca [Lipitor] 40 mg PO HS 10/02/16 Insulin Sliding Scale [Novolog Vial Sliding Scale -] 1 vial SQ ACHS #1 units 03/13 Triamterene/Hydrochlorothiazid [Triamterene-Hctz 37.5-25 mg Cp] 1 each PO DAILY 10/14/16 Anemia: Yes Asthma: No Cancer: Yes (prostate) Cardiac Disorders: Yes ([place]: 2011, CARDIAC STENTING) CVA: No COPD: No CHF: No Dementia: No Diabetes: Yes (NIDDM) GI Disorders: No Disorders: Yes (BLADDER MASS RESECTED IN DECEMBER 2015) HTN: Yes Hypercholesterolemia: No Liver Disease: No Seizures: No Thyroid Disease: No - Surgical History Abdominal Surgery: No Appendectomy: No Cardiac Surgery: Yes (STENT X1) Cholecystectomy: No Lung Surgery: No Neurologic Surgery: No Orthopedic Surgery: No - Immunization History Immunization Up to Date: Yes - Psycho/Social/Smoking Cessation Hx Anxiety: No Suicidal Ideation: No Smoking Status: No Smoking History: Never smoked Have you smoked in the past 12 months: No Number of Cigarettes Smoked Daily: 0 If you are a former smoker, when did you quit?: 2014 Hx Alcohol Use: No Drug/Substance Use Hx: No Substance Use Type: None Hx Substance Use Treatment: No *Physical Exam - Vital Signs Last Vital Signs Temp Pulse Resp BP Pulse Ox 99.6 F 108 H 19 148/79 98 10/14/16 18:39 10/14/16 18:39 10/14/16 18:39 10/14/16 18:39 10/14/16 18:39 ED Treatment Course - LABORATORY CBC & Chemistry Diagram: 10/14/16 19:53 10/14/16 19:53 - RADIOLOGY Radiology Studies Ordered: Category Date Time Status CHEST X-RAY PORTABLE* [RAD] Stat Radiology 10/14/16 19:33 Ordered Medical Decision Making - Medical Decision Making 10/14/16 22:00 66 yo M with significant PMH of HTN, [place] x2, HLD, uncontrolled diabetes, CAD s/p stent, kidney stones, multidrugresistent UTI, s/p radical prostatectomy presents to ED with left flank pain since this morning. -CBC, CMP, PT/INR, card profile -UA, UCx -CXR, EKG Labs: WBC 13.5, creatinine 1.9 (increased from previous of 0.9 on 10/03) UA: WBC 115 -Zosyn IVPB -Change valero catheter -Renal ultrasound 10/14/16 22:01 Discussed case with ER attending MD Rosas, will admit for MDR pyelo and MARY. *DC/Admit/Observation/Transfer Diagnosis at time of Disposition: Acute kidney injury, UTI (urinary tract infection) - Discharge Dispostion Admit: Yes
[2016-10-14 19:54] LABS: URINE APPEARANCE SLCLOUDY; URINE BILIRUBIN NEGATIVE (NEGATIVE); URINE COLOR LTYELLOW; URINE GLUCOSE (UA) 3+ (NEGATIVE); URINE KETONE NEGATIVE (NEGATIVE); URINE NITRITE NEGATIVE (NEGATIVE); URINE UROBILINOGEN NEGATIVE E.U./dl (0.2-1.0)
[2016-10-14 19:57] LABS: BASOPHIL 0.7 % (0-2.0); EOSINOPHIL 1.1 % (0-4.5); MCH 24.9 pg (25.7-33.7); MCHC 31.8 g/dl (32.0-35.9); MEAN CELL VOLUME 78.5 fl (80-96); MEAN PLT VOLUME 9.6 fl (7.5-11.1); NEUTROPHILS 85.6 % (42.8-82.8); PLATELET COUNT 211 K/MM3 (134-434); RDW 17.3 % (11.9-15.9)
[2016-10-14 20:16] LABS: URINE BLOOD 3+ (NEGATIVE); URINE LEUK ESTERASE 3+ (NEGATIVE); URINE PROTEIN 2+ (NEGATIVE)
[2016-10-14 20:17] LABS: INR 1.01 (0.82-1.09); PROTHROMBIN TIME (PATIENT) 11.1 SEC (9.98-11.88)
[2016-10-14 20:19] LABS: URINE BACTERIA RARE /hpf (NONE SEEN); URINE MUCUS RARE; URINE RBC 234 /hpf (0-3); URINE WBC 115 /hpf (3-5); YEAST RARE
[2016-10-14 20:20] LABS: ACTIVATED PTT 37.7 SECONDS (26.9-34.4)
[2016-10-14] MEDS ORDERED: ACETAMINOPHEN 325 MG TABLET (FP) ONE (20:21)
[2016-10-14] MEDS ORDERED: ACETAMINOPHEN 325 MG TABLET (FP) PO ONE (20:24)
[2016-10-14] MEDS ORDERED: PIPERACILLIN/TAZOB 3.375 GM/50 ML PRE-DOCKED IVPB ONE (20:27)
[2016-10-14 20:29] LABS: CALCIUM 8.6 mg/dL (8.5-10.1)
[2016-10-14 20:32] LABS: TROPONIN I < 0.02 ng/ml (0.00-0.05)
[2016-10-14 20:33] LABS: BILIRUBIN,TOTAL 0.1 mg/dL (0.2-1.0); COCKROFT - GAULT 40.82; CREATININE 1.9 mg/dL (0.7-1.3); TOT PROT 7.3 g/dl (6.4-8.2)
[2016-10-14] MEDS ORDERED: PIPERACILLIN/TAZOB 3.375 GM 50 ML IVPB ONE (20:46)
--- NOTE | 2016-10-14 23:30 | PN ---
<Leslie Zayas - Last Filed: 10/14/16 23:29> Teaching Attending Note Name of Resident: Jake De Leon <Romelia Yoon - Last Filed: 10/15/16 00:06> Teaching Attending Note ATTENDING PHYSICIAN STATEMENT I saw and evaluated the patient. I reviewed the resident's note and discussed the case with the resident. I agree with the resident's findings and plan as documented. SUBJECTIVE: 66 yo M with PMHx of MDR-UTIs, ESBL in Urine, who presents to the ED with L flank pain and fever since this morning. The patient undergone recent male sling placement with coloplast cystoscopy for history of urinary incontinence. Patient was sent home with indwelling catheter. Patient is s/p suture removal yesterday and since then has been experiencing fever/chills and L flank pain. Of note, patient has worsening L Kidney hydronephrosis since last December 2015. Patient denies any dysuria, frequency, urgency or hematuria. Patient denies nausea, vomit, diarrhea or constipation. Patient denies denies chest pain, headache or dizziness. PMHx: HTN, [place] x2, HLD, uncontrolled diabetes, CAD s/p stent, kidney stones, s/p radical prostatectomy, prostate CA, vertigo, neuropathy, ureteral stents, recurrent bladder infections PSHx: Male sling placement with coloplast and cystoscopy Family Hx: Noncontributory Allergies: Lisinopril OBJECTIVE: Last Vital Signs Temp Pulse Resp BP Pulse Ox 102.3 F H 116 H 24 175/57 96 10/14/16 20:45 10/14/16 21:08 10/14/16 21:08 10/14/16 21:08 10/14/16 21:08 GENERAL: Awake, alert, and fully oriented, in no acute distress. HEENT: Atraumatic. PERRLA, EOMI. No JVD. +Dry oral mucous. LUNGS: No distress, speaks full sentences, clear to auscultation bilaterally HEART: Regular rate and rhythm, normal S1 and S2, no murmurs, rubs or gallops, peripheral pulses normal and equal bilaterally. ABDOMEN: + Obese. +Distended. +L CVA tenderness. Soft, nontender, normoactive bowel sounds. No guarding, no rebound. No masses EXTREMITIES: Normal inspection, Normal range of motion, no edema. No clubbing or cyanosis. NEUROLOGICAL: Cranial nerves II through XII grossly intact. Normal speech, normal gait, no focal sensorimotor deficits SKIN: Warm, Dry, normal turgor, no rashes or lesions noted. CBCD WBC 13.0 K/mm3 (4.0-10.0) H D 10/14/16 19:53 RBC 4.13 M/mm3 (4.00-5.60) 10/14/16 19:53 Hgb 10.3 GM/dL (11.7-16.9) L 10/14/16 19:53 Hct 32.4 % (35.4-49) L 10/14/16 19:53 MCV 78.5 fl (80-96) L 10/14/16 19:53 MCHC 31.8 g/dl (32.0-35.9) L 10/14/16 19:53 RDW 17.3 % (11.9-15.9) H 10/14/16 19:53 Plt Count 211 K/MM3 (134-434) D 10/14/16 19:53 MPV 9.6 fl (7.5-11.1) D 10/14/16 19:53 CMP Sodium 133 mmol/L (136-145) L 10/14/16 19:53 Potassium 4.2 mmol/L (3.5-5.1) 10/14/16 19:53 Chloride 100 mmol/L (98-107) 10/14/16 19:53 Carbon Dioxide 24 mmol/L (21-32) 10/14/16 19:53 Anion Gap 9 (8-16) 10/14/16 19:53 BUN 18 mg/dL (7-18) D 10/14/16 19:53 Creatinine 1.9 mg/dL (0.7-1.3) H D 10/14/16 19:53 Creat Clearance w eGFR 35.43 (>60) 10/14/16 19:53 Calcium 8.6 mg/dL (8.5-10.1) 10/14/16 19:53 Total Bilirubin 0.1 mg/dL (0.2-1.0) L D 10/14/16 19:53 AST 14 U/L (15-37) L 10/14/16 19:53 ALT 30 U/L (12-78) D 10/14/16 19:53 Alkaline Phosphatase 124 U/L (45-117) H 10/14/16 19:53 Total Protein 7.3 g/dl (6.4-8.2) 10/14/16 19:53 Albumin 3.0 g/dl (3.4-5.0) L 10/14/16 19:53 IMAGING: Renal US Impression:Findings is suggestive of right renal sinus lipomatosis with questionable minimal fullness of the calyces in its midportion. Moderate to marked left renal hydronephrosis that has worsened since prior examination dated 2015 Chest XRay Impression:No significant interval change or acute lung disease is present. ASSESSMENT AND PLAN: Urology consult Ertapenem ID consult- Dr. Garrido Follow Documentation prepared by Romelia Yoon, acting as curator medical museum for Leslie Zayas MD.
--- NOTE | 2016-10-14 23:48 | HP ---
CHIEF COMPLAINT: left flank pain PCP: Shine Venegas HISTORY OF PRESENT ILLNESS: 66 yr old man with uncontrolled IDDM II, s/p prostate cancer, incontinence, nephrothiasis, multiple UTI's with drug-resistant organisms presents with left flank pain since last night. It started after stent was removed in urologist's office. Since the removal he has had fever, chills and nonpositional continuos left flank pain radiating to his groin. it is similar to pain has had in the past but worse last night, with no alleviating or exacerbating factors. After recent hospital discharge he was feeling well until the removal of the stent yesterday. also c/o abdominal distention since this morning, denies vomiting/nasea, abdominal pain. denies hematuria, pus, hematochezia, melena, headache, palpitations, chest pain , shortness of breath. ER course was notable for: (1) change of valero (2) IVF, Abx zosyn x1 (3) renal ultrasound Recent Travel: none PAST MEDICAL HISTORY: uncontrolled IDDM HTN CAD s/p stents prostate ca s/p radical prostatectomy urinary incontinence s/p sling placement neuropathy recurrent UTI vertigo nephrolithiasis [place] x2 PAST SURGICAL HISTORY: bladder sling placement 09/2016 Social History: Smoking: denies Alcohol:denies Drugs: denies Family History: [place] Allergies lisinopril Allergy (Severe, Verified 10/14/16 18:39) Swelling HOME MEDICATIONS: Home Medications Medication Instructions Recorded Amlodipine Besylate [Norvasc -] 10 mg PO DAILY 01/22/15 Ferrous Sulfate [Feosol] 325 mg PO BID 01/22/15 Tamsulosin HCl 0.4 mg PO DAILY 01/22/15 Tramadol HCl [Ultram] 50 mg PO TID PRN 01/22/15 Esomeprazole Magnesium [Nexium 40 mg PO DAILY 11/22/15 24Hr] Gabapentin [Neurontin -] 300 mg PO HS 11/22/15 Meclizine HCl [Antivert -] 25 mg PO BID PRN 11/22/15 Metoprolol Tartrate [Lopressor -] 50 mg PO BID 11/22/15 Atorvastatin Ca [Lipitor] 40 mg PO HS 10/02/16 Insulin Sliding Scale [Novolog 1 vial SQ ACHS #1 units 10/03/16 Vial Sliding Scale -] Triamterene/Hydrochlorothiazid 1 each PO DAILY 10/14/16 [Triamterene-Hctz 37.5-25 mg Cp] REVIEW OF SYSTEMS CONSTITUTIONAL: Present: fever, chills Absent: diaphoresis, generalized weakness, malaise, loss of appetite, weight change HEENT: Absent: rhinorrhea, nasal congestion, throat pain, throat swelling, difficulty swallowing, mouth swelling, ear pain, eye pain, visual changes CARDIOVASCULAR: Absent: chest pain, syncope, palpitations, irregular heart rate, lightheadedness , peripheral edema RESPIRATORY: Absent: cough, shortness of breath, dyspnea with exertion, orthopnea, wheezing, stridor, hemoptysis GASTROINTESTINAL: Present: abdominal distension, Absent: abdominal pain, nausea, vomiting, diarrhea, constipation, melena, hematochezia GENITOURINARY: Present:flank pain, Absent: dysuria, frequency, urgency, hesitancy, , genital pain, hematuria MUSCULOSKELETAL: Absent: myalgia, arthralgia, joint swelling, back pain, neck pain SKIN: Absent: rash, itching, pallor HEMATOLOGIC/IMMUNOLOGIC: Absent: easy bleeding, easy bruising, lymphadenopathy, frequent infections ENDOCRINE: Absent: unexplained weight gain, unexplained weight loss, heat intolerance, cold intolerance NEUROLOGIC: Absent: headache, focal weakness or paresthesias, dizziness, unsteady gait, seizure, mental status changes, bladder or bowel incontinence PSYCHIATRIC: Absent: anxiety, depression, suicidal or homicidal ideation, hallucinations. PHYSICAL EXAMINATION Vital Signs - 24 hr 10/14/16 10/14/16 10/14/16 18:39 20:45 21:08 Temperature 99.6 F 102.3 F H Pulse Rate 108 H Pulse Rate [ 90 116 H Apical] Respiratory 19 20 24 Rate Blood Pressure 148/79 Blood Pressure 175/57 [Left Arm] O2 Sat by Pulse 98 98 96 Oximetry (%) GENERAL: Awake, alert, and fully oriented, in no acute distress. HEAD: Normal with no signs of trauma. EYES: Pupils equal, round and reactive to light, extraocular movements intact, sclera anicteric, conjunctiva clear. No lid lag. EARS, NOSE, THROAT: Ears normal, nares patent, oropharynx clear without exudates. Moist mucous membranes. NECK: Normal range of motion, supple without lymphadenopathy, JVD, or masses. LUNGS: Breath sounds equal, clear to auscultation bilaterally. No wheezes, and no crackles. No accessory muscle use. HEART: Regular rate and rhythm, normal S1 and S2 without murmur, rub or gallop. ABDOMEN: Soft, nontender, distended, normoactive bowel sounds, no guarding, no rebound, no masses. tympanic on percussion. MUSCULOSKELETAL: Normal range of motion at all joints. No bony deformities or tenderness. left CVA tenderness. UPPER EXTREMITIES: 2+ pulses, warm, well-perfused. No cyanosis. No clubbing. No peripheral edema. LOWER EXTREMITIES: 2+ pulses, warm, well-perfused. No calf tenderness. No peripheral edema. NEUROLOGICAL: Cranial nerves II-XII intact. Normal speech. Normal gait. PSYCHIATRIC: Cooperative. Good eye contact. Appropriate mood and affect. SKIN: Warm, dry, normal turgor, no rashes or lesions noted, normal capillary refill. Genital exam: normal appearing male genitalia, no tenderness. no scrotal swelling, no penile discharge or lesions. valero in place. Laboratory Results - last 24 hr 10/14/16 10/14/16 10/14/16 19:20 19:33 19:42 WBC RBC Hgb Hct MCV MCHC RDW Plt Count MPV Neutrophils % Lymphocytes % Monocytes % Eosinophils % Basophils % INR 1.01 PTT (Actin FS) 37.7 H Sodium Potassium Chloride Carbon Dioxide Anion Gap BUN Creatinine Creat Clearance w eGFR Random Glucose Lactic Acid 1.534 Calcium Total Bilirubin AST ALT Alkaline Phosphatase Creatine Kinase Troponin I Total Protein Albumin Urine Color Ltyellow Urine Appearance Slcloudy Urine pH 6.0 Ur Specific [place] 1.016 Urine Protein 2+ H Urine Glucose (UA) 3+ H Urine Ketones Negative Urine Blood 3+ H Urine Nitrite Negative Urine Bilirubin Negative Urine Urobilinogen Negative Ur Leukocyte Esterase 3+ H Urine RBC 234 Urine WBC 115 Urine Bacteria Rare Urine Mucus Rare Urine Yeast Rare 10/14/16 10/14/16 10/14/16 19:53 19:53 19:53 WBC 13.0 H D RBC 4.13 Hgb 10.3 L Hct 32.4 L MCV 78.5 L MCHC 31.8 L RDW 17.3 H Plt Count 211 D MPV 9.6 D Neutrophils % 85.6 H D Lymphocytes % 8.2 D Monocytes % 4.4 Eosinophils % 1.1 Basophils % 0.7 INR PTT (Actin FS) Sodium 133 L Potassium 4.2 Chloride 100 Carbon Dioxide 24 Anion Gap 9 BUN 18 D Creatinine 1.9 H D Creat Clearance w eGFR 35.43 Random Glucose 328 H* D Lactic Acid Calcium 8.6 Total Bilirubin 0.1 L D AST 14 L ALT 30 D Alkaline Phosphatase 124 H Creatine Kinase 56 Troponin I < 0.02 Total Protein 7.3 Albumin 3.0 L Urine Color Urine Appearance Urine pH Ur Specific [place] Urine Protein Urine Glucose (UA) Urine Ketones Urine Blood Urine Nitrite Urine Bilirubin Urine Urobilinogen Ur Leukocyte Esterase Urine RBC Urine WBC Urine Bacteria Urine Mucus Urine Yeast ASSESSMENT/PLAN: 66 yr old man with recent ureteral stent removal presents with intractable left flank pain found to have worsening of hydronephrosis. #UTI/ sepsis(source, wbc, HR) - ertapenem 1gm ivpb - Dr. thomas consulted - urine cultures pending, bld cx pending - contact precautions for MDR - tylenol for fevers #Hydronephrosis - Raquel Venegas consulted - flomax - valero at admission had clear yellow urine without sediment or clots. With the insertion of new valero there was approx 50cc cloudy pink urine. - renal u/s suggestive of right renal sinus lipomatosis, left renal hydronephrosis that has worsened since previous exam - continue valero with valero care - monitor I&O's #MARY - current cr 1.9, baseline 0.9, likely due to hydronephrosis - IVF #DM II - uncontrolled IDDM (08/2016 [id number]) - NISS - levemir 18 BID - BGM ACHS #HTN - lopressor and norvasc, dyazide #Anemia - microcytic - feosol daily #CAD s/p stents - lipitor 40mg po HS - ASA daily #neuropathy - gabapentin #GERD - nexium #DVT - lovenox daily #diet- diabetic/low sodium Visit type - Emergency Visit Emergency Visit: Yes ED Registration Date: 10/14/16 Care time: The patient presented to the Emergency Department on the above date and was hospitalized for further evaluation of their emergent condition. - New Patient This patient is new to me today: Yes Date on this admission: 10/14/16 - Critical Care Critical Care patient: No
--- NOTE | 2016-10-15 00:43 | MSN ---
Admitting History and Physical - Primary Care Physician PCP: Shine Langley - Admission Chief Complaint: L flank pain History of Present Illness: Pt is a 66 yo M with a PMHx of uncontrolled DM, ESBL UTI, nephrolithiasis, hydronephrosis s/p ureteral stenting, and prostate CA s/p radical prostatectomy , who presents with L flank pain and fevers since this AM. The pt has recently undergone cystoscopy and bladder sling procedure (10/01/16) with subsequent admission for uncontrolled hyperglycemia. The pt was sent home with indwelling catheter and told to FU with urology outpatient (Dr. Langley). In addition, the pt was admitted to [facility] this August for similar Sx of L flank pain and hematuria. Briefly, his hospital course was notable for cysto exchange of L ureteral stent (Dr. Rivera) and Tx of ESBL UTI with Meropenem. The pt had his sutures and ureteral stent removed yesterday. Pt states his pain "feels like its inside", does not radiate anywhere, and is not relieved with the pain killers he was prescribed recently. He also admits to new onset abdominal bloating without similar Sx in the past. Reports an increase in his heartburn symptoms recently as well. Denies CP, SOB, nausea, vomiting, change in bowel, or dysphagia. ER course was notable for: (1) SIRS criteria met: HR 108, Temp 102.3, WBC 13 (2) Renal US: R renal sinus lipomatosis. Marked L renal hydronephrosis that has worsened since prior study in 12/2015. 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 Cardiovascular: Yes: CAD (s/p stenting), HTN, Hyperlipdemia, [place] Gastrointestinal: Yes: Diverticulosis, GERD Renal/: Yes: Cancer (Prostate), Hematuria, Renal Calculi, UTI (ESBL), Other Heme/Onc: Yes: Anemia Infectious Disease: Yes: Other (ESBL UTI) Endocrine: Yes: Diabetes Mellitus - Past Surgical History Past Surgical History: Yes: Prostatectomy, Stent (PCI, ureteral stenting) - Smoking History Smoking history: Former smoker Have you smoked in the past 12 months: No Aproximately how many cigarettes per day: 0 If you are a former smoker, when did you quit?: 2015 - Alcohol/Substance Use Hx Alcohol Use: No History of Substance Use: reports: None - Social History Usual Living Arrangement: Yes: Alone ADL: Independent History of Recent Travel: No Home Medications - Allergies Allergies/Adverse Reactions: Allergies Allergy/AdvReac Type Severity Reaction Status Date / Time lisinopril Allergy Severe Swelling Verified 10/14/16 18:39 - Home Medications Home Medications: Ambulatory Orders RX: Amlodipine Besylate [Norvasc -] 10 mg PO DAILY 01/22/15 RX: Ferrous Sulfate [Feosol] 325 mg PO BID 01/22/15 RX: Tamsulosin HCl 0.4 mg PO DAILY 01/22/15 RX: Tramadol HCl [Ultram] 50 mg PO TID PRN 01/22/15 RX: Esomeprazole Magnesium [Nexium 24Hr] 40 mg PO DAILY 11/22/15 RX: Gabapentin [Neurontin -] 300 mg PO HS 11/22/15 RX: Meclizine HCl [Antivert -] 25 mg PO BID PRN 11/22/15 RX: Metoprolol Tartrate [Lopressor -] 50 mg PO BID 11/22/15 RX: Atorvastatin Ca [Lipitor] 40 mg PO HS 10/02/16 RX: Insulin Sliding Scale [Novolog Vial Sliding Scale -] 1 vial SQ ACHS #1 units 10/03/16 Triamterene/Hydrochlorothiazid [Triamterene-Hctz 37.5-25 mg Cp] 1 each PO DAILY 10/14/16 Review of Systems - Review of Systems Constitutional: reports: Chills, Fever Eyes: reports: No Symptoms HENT: reports: No Symptoms Neck: reports: No Symptoms Cardiovascular: reports: No Symptoms Respiratory: reports: No Symptoms Gastrointestinal: reports: Abdominal Pain, Bloating, Indigestion. denies: Diarrhea, Dysphagia, Nausea, Vomiting, Vomiting Blood Genitourinary: reports: Flank Pain. denies: Dysuria, Hematuria Musculoskeletal: reports: No Symptoms Integumentary: reports: No Symptoms Neurological: reports: No Symptoms Endocrine: reports: No Symptoms Hematology/Lymphatic: reports: No Symptoms Psychiatric: reports: No Symptoms Physical Examination Vital Signs: Vital Signs Period Temp Pulse Resp BP Sys/[place] Pulse Ox Last 24 Hr 99.6 F-102.3 F 90-116 19-24 148-175/57-79 96-98 Constitutional: Yes: Well Nourished, Calm, Mild Distress. No: Diaphoresis Eyes: Yes: Conjunctiva Clear, EOM Intact, PERRL. No: Cataracts, Sclera Icterus HENT: Yes: Atraumatic, Normocephalic. No: Epistaxis, Rhinnorhea Neck: Yes: Supple, Trachea Midline. No: Lymphadenopathy Cardiovascular: Yes: Regular Rate and Rhythm, S1, S2. No: Bradycardia, Tachycardia, Pulse Irregular, JVD, Gallop, Murmur, Rub Respiratory: Yes: Regular, CTA Bilaterally. No: Accessory Muscle Use, Bradypnea , Cough, Diminished, Poor Air Entry, Rales, Rhonchi, SOB, SOB on Exertion, Stridor, Tachypnea, Wheezes Gastrointestinal: Yes: Distention, Hypoactive Bowel Sounds, Tenderness, Epigastrium, Other (Tympanic to percussion) Renal/: Yes: CVA Tenderness - Left, CVA Tenderness - Right, Valero Present. No : Hematuria Musculoskeletal: Yes: WNL Extremities: No: Cold, Cool, Deformity, Delayed Capillary Refill, Erythema, External Rotation, Internal Rotation Edema: No Peripheral Pulses WNL: Yes Peripheral Pulses: Left Radial: 2+, Right Radial: 2+, Left Doralis Pedis: 2+, Right Dorsalis Pedis: 2+ Neurological: Yes: Alert, Oriented, Cran Nerves II-XII Intact. No: Confusion Psychiatric: Yes: Alert, Oriented Labs: CBC WBC 13.0 K/mm3 (4.0-10.0) H D 10/14/16 19:53 RBC 4.13 M/mm3 (4.00-5.60) 10/14/16 19:53 Hgb 10.3 GM/dL (11.7-16.9) L 10/14/16 19:53 Hct 32.4 % (35.4-49) L 10/14/16 19:53 MCV 78.5 fl (80-96) L 10/14/16 19:53 MCHC 31.8 g/dl (32.0-35.9) L 10/14/16 19:53 RDW 17.3 % (11.9-15.9) H 10/14/16 19:53 Plt Count 211 K/MM3 (134-434) D 10/14/16 19:53 MPV 9.6 fl (7.5-11.1) D 10/14/16 19:53 Neutrophils % 85.6 % (42.8-82.8) H D 10/14/16 19:53 Lymphocytes % 8.2 % (8-40) D 10/14/16 19:53 Monocytes % 4.4 % (3.8-10.2) 10/14/16 19:53 Eosinophils % 1.1 % (0-4.5) 10/14/16 19:53 Basophils % 0.7 % (0-2.0) 10/14/16 19:53 CMP Sodium 133 mmol/L (136-145) L 10/14/16 19:53 Potassium 4.2 mmol/L (3.5-5.1) 10/14/16 19:53 Chloride 100 mmol/L (98-107) 10/14/16 19:53 Carbon Dioxide 24 mmol/L (21-32) 10/14/16 19:53 Anion Gap 9 (8-16) 10/14/16 19:53 BUN 18 mg/dL (7-18) D 10/14/16 19:53 Creatinine 1.9 mg/dL (0.7-1.3) H D 10/14/16 19:53 Creat Clearance w eGFR 35.43 (>60) 10/14/16 19:53 Random Glucose 328 mg/dL (74-106) H* D 10/14/16 19:53 Lactic Acid 1.534 mmol/L (0.4-2.0) 10/14/16 19:42 Calcium 8.6 mg/dL (8.5-10.1) 10/14/16 19:53 Total Bilirubin 0.1 mg/dL (0.2-1.0) L D 10/14/16 19:53 AST 14 U/L (15-37) L 10/14/16 19:53 ALT 30 U/L (12-78) D 10/14/16 19:53 Alkaline Phosphatase 124 U/L (45-117) H 10/14/16 19:53 Creatine Kinase 56 IU/L (39-308) 10/14/16 19:53 Troponin I < 0.02 ng/ml (0.00-0.05) 10/14/16 19:53 Total Protein 7.3 g/dl (6.4-8.2) 10/14/16 19:53 Albumin 3.0 g/dl (3.4-5.0) L 10/14/16 19:53 Urine Test Results Urine Color Ltyellow 10/14/16 19:20 Urine Appearance Slcloudy 10/14/16 19:20 Urine pH 6.0 (5.0-8.0) 10/14/16 19:20 Ur Specific [place] 1.016 (1.001-1.035) 10/14/16 19:20 Urine Protein 2+ (NEGATIVE) H 10/14/16 19:20 Urine Glucose (UA) 3+ (NEGATIVE) H 10/14/16 19:20 Urine Ketones Negative (NEGATIVE) 10/14/16 19:20 Urine Blood 3+ (NEGATIVE) H 10/14/16 19:20 Urine Nitrite Negative (NEGATIVE) 10/14/16 19:20 Urine Bilirubin Negative (NEGATIVE) 10/14/16 19:20 Ur Leukocyte Esterase 3+ (NEGATIVE) H 10/14/16 19:20 Urine RBC 234 /hpf (0-3) 10/14/16 19:20 Urine WBC 115 /hpf (3-5) 10/14/16 19:20 Urine Bacteria Rare /hpf (NONE SEEN) 10/14/16 19:20 Urine Mucus Rare 10/14/16 19:20 Imaging - Results Chest X-ray: Report Reviewed, Image Reviewed (No significant change compared to prior study in 03/2016. No active lung disease.) Ultrasound: Report Reviewed (Renal US: R renal sinus lipomatosis. Marked L renal hydronephrosis that has worsened since prior study in 12/2015. No stones noted.), Image Reviewed Problem List - Problems (1) Acute kidney injury (2) UTI (urinary tract infection) (3) CAD (coronary artery disease) (4) DVT prophylaxis (5) Diabetes (6) Hematuria (7) Hydroureter (8) Hyperglycemia (9) Hypertension (10) Pyelonephritis Assessment/Plan Pt is a 67 yo M with a significant PMHx of MDR UTI, nephrolithiasis, hydronephrosis, prostate cancer, and uncontrolled DM, who presents to the ED with L flank pain and fevers since this AM. The pt was recently hospitalized for similar symptoms in mid August with subsequent ureter stent exchange and Tx of ESBL UTI. Also, pt recently underwent cystoscopy and coloplast bladder sling procedure earlier this month and was discharged with indwelling catheter. Upon presentation today, pt met SIRS criteria with UA results suspicious for UTI. 1. Sepsis 2/2 pyelonephritis -Pt presented with indwelling valero catheter that was changed in ER -Pt has been HD since presentation. Met SIRS criteria with HR of 108, Temp of 102.3, and WBC of 13 (acute rise since discharge on 10/03/16 with WBC of 7.7) -Given Zosyn 3.375g x1 in ED and IVF started with NS -UA 2+ LE, 3+ blood, 234 RBCs, and 115 WBCs -LA of 1.53. Repeat LA in AM -ID consult pending (Dr. Garrido). Ertapenem -Urine Cx pending. Hx of MDR UTI. Treated for ESBL E. coli in mid August with Meropenem -Blood Cx pending 2. MARY -BUN/Cr of 18/1.9. Pt baseline Cr ~1.0 based on previous admissions with Cr of 0.9 at discharge on 10/03/16 -2/2 pyelonephritis vs. post-renal obstruction -Renal US indicates worsening L renal hydronephrosis since 12/2015. No stones identified on US -Continue Flomax 0.4mg PO daily -Urology consult pending (Dr. Langley) 3. Uncontrolled DM -Random BG of 328 with BMP -Most recent HbA1c of 10.9% in mid August -Discharged on 10/03/16 with Rx for Levemir 18U BID, Novolog 5U AC meals, ISS ACHS. Told to FU with PCP (Dr. Shine Stahl) in 1 week post discharge -BGM ACHS -SSI 4. GERD -Pt reports worsening of heartburn recently -Discharged home on Nexium 40mg PO daily -Continue home med 5. HTN -Stable -Discharged home with Norvasc 10mg PO daily and Metoprolol 50mg PO BID on 10/03/16 -Continue home med with monitoring of BP 6. HLD -Last lipid panel in 02/2012: Elevated triglycerides 165, nml total cholesterol 188, elevated LDL 118, low HDL 27 -Repeat lipid panel -Continue Lipitor 40mg PO HS 7. Microcytic anemia -Hgb of 10.3 is around pt's baseline according to previous records -Never has had iron studies -Order iron studies (serum iron, ferritin, TIBC, iron sat) to further evaluate etiology of anemia -Current Ferrous sulfate 325mg PO BID Tx could be causing constipation with subsequent abdominal distention 8. CAD s/p stents -Pt has a Hx of [place] (2011) -Continue current management with ASA 81mg PO daily and statin 9. Hx of vertigo -Continue Meclizine 25mg PO BID 10. FEN -Continue IVF with NS -BMP WNL. Continue to monitor electrolytes and correct abnormalities -Na restricted/diabetic diet 11. DVT ppx -SCDs -EAB 12. Dispo -Pt admitted to Med-Surg for further management. LOS in question as of now Dario Mac, MS3
[2016-10-15 01:41] VITALS: BMI 28.3
[2016-10-15] MEDS ORDERED: ACETAMINOPHEN 325 MG TABLET (FP) PO ONE (05:56)
[2016-10-15] MEDS ORDERED: ERTAPENEM SODIUM 1 GM in SODIUM CHLORIDE 50 ML IVPB ONE (05:57)
[2016-10-15] MEDS ORDERED: ERTAPENEM SODIUM 1 GM/50 ML PRE-DOCKED IVPB ONE (06:00)
[2016-10-15] MEDS ORDERED: ENOXAPARIN NA (PORCINE) 40 MG/0.4 ML DISP.SYRIN SQ ONE (06:36)
[2016-10-15] MEDS: INSULIN SLIDING SCALE (NOVOLOG) 1 VIAL SQ SCH ×4 (06:39→21:31)
[2016-10-15] MEDS: INSULIN DETEMIR 100 UNITS/ML MDV SQ SCH ×2 (07:45→18:15)
[2016-10-15] MEDS: TAMSULOSIN HCL 0.4 MG CAP.ER.24H (FP) PO SCH (07:46)
[2016-10-15] MEDS: PANTOPRAZOLE 40 MG TABLET (FP) PO SCH (09:53)
[2016-10-15] MEDS: METOPROLOL TARTRATE 50 MG TABLET (FP) PO SCH ×2 (09:53→21:31)
[2016-10-15] MEDS: TRIAMTERENE AND HCTZ - 37.5 MG/25 MG CAPSULE PO SCH (09:53)
[2016-10-15] MEDS: amLODIPine BESYLATE 10 MG TABLET (FP) PO SCH (09:53)
[2016-10-15] MEDS: FERROUS SO4 325 MG TABLET (FP) PO SCH ×2 (09:53→21:31)
--- NOTE | 2016-10-15 09:59 | EKG ---
Test Reason : Blood Pressure : / mmHG Vent. Rate : 091 BPM Atrial Rate : 091 BPM P-R Int : 222 ms QRS Dur : 080 ms QT Int : 332 ms P-R-T Axes : 066 021 052 degrees QTc Int : 408 ms SINUS RHYTHM WITH 1ST DEGREE A-V BLOCK POSSIBLE LEFT ATRIAL ENLARGEMENT SEPTAL INFARCT , AGE UNDETERMINED ABNORMAL ECG WHEN COMPARED WITH ECG OF 04-SEP-2016 22:02, SEPTAL INFARCT IS NOW PRESENT Confirmed by SARANYA CROW MD ([id number]) on 10/15/2016 9:59:14 AM Referred By: Confirmed By:SARANYA CROW MD
--- NOTE | 2016-10-15 10:53 | CONSULT ---
Consult Consult Specialty:: infectious diseases Reason for Consultation:: pyelo nephritis. uti. fever - History of Present Illness Chief Complaint: fever,pain in the left flank History of Present Illness: 66 yo M with a PMHx of uncontrolled DM, ESBL UTI, nephrolithiasis, hydronephrosis s/p ureteral stenting, and prostate CA s/p radical prostatectomy , who presents with L flank pain and fevers since . The pt has recently undergone cystoscopy and bladder sling procedure (10/01/16) with subsequent admission for uncontrolled hyperglycemia. The pt was sent home with indwelling catheter and told to FU with urology outpatient (Dr. Langley). In addition, the pt was admitted to [facility] this August for similar Sx of L flank pain and hematuria. Briefly, his hospital course was notable for cysto exchange of L ureteral stent (Dr. Rivera) and Tx of ESBL UTI with Meropenem. The pt had his sutures and ureteral stent , vomiting, change in bowel, or dysphagi patients pain was more sever and patient started having fevers and came to the hospital I know this patient from previous admissions and his source of infection have always been his urine and also patient had hydronephrosis on the previous admission patient was worked up and found to have uti and his ultrasound is showing worsening of his hydro - History Source History Provided By: Patient, Medical Record Limitations to Obtaining History: Language Barrier - Past Medical History [employer]ERAPIST: Yes: Vertigo Cardio/Vascular: Yes: CAD (s/p stenting), HTN, Hyperlipdemia, IN Gastrointestinal: Yes: Diverticulosis, GERD Renal/: Yes: Cancer (Prostate), Hematuria, Renal Calculi, UTI (ESBL), Other Infectious Disease: Yes: Other (ESBL UTI) Endocrine: Yes: Diabetes Mellitus - Past Surgical History Past Surgical History: Yes: Prostatectomy, Stent (PCI, ureteral stenting) - Alcohol/Substance Use Hx Alcohol Use: No History of Substance Use: reports: None - Smoking History Smoking history: Former smoker Have you smoked in the past 12 months: No Aproximately how many cigarettes per day: 0 If you are a former smoker, when did you quit?: 2014 - Social History ADL: Independent History of Recent Travel: No Home Medications - Allergies Allergies/Adverse Reactions: Allergies Allergy/AdvReac Type Severity Reaction Status Date / Time lisinopril Allergy Severe Swelling Verified 10/14/16 18:39 - Home Medications Home Medications: Ambulatory Orders Amlodipine Besylate [Norvasc -] 10 mg PO DAILY 01/22/15 Ferrous Sulfate [Feosol] 325 mg PO BID 01/22/15 Tamsulosin HCl 0.4 mg PO DAILY 01/22/15 Tramadol HCl [Ultram] 50 mg PO TID PRN 01/22/15 Esomeprazole Magnesium [Nexium 24Hr] 40 mg PO DAILY 11/22/15 Gabapentin [Neurontin -] 300 mg PO HS 11/22/15 Meclizine HCl [Antivert -] 25 mg PO BID PRN 11/22/15 Metoprolol Tartrate [Lopressor -] 50 mg PO BID 11/22/15 Atorvastatin Ca [Lipitor] 40 mg PO HS 10/02/16 Insulin Sliding Scale [Novolog Vial Sliding Scale -] 1 vial SQ ACHS #1 units 03/13 Triamterene/Hydrochlorothiazid [Triamterene-Hctz 37.5-25 mg Cp] 1 each PO DAILY 10/14/16 Review of Systems - Review of Systems Constitutional: reports: Fever, Weakness, Other Eyes: reports: No Symptoms HENT: reports: No Symptoms Neck: reports: No Symptoms Cardiovascular: reports: No Symptoms Respiratory: reports: No Symptoms Gastrointestinal: reports: No Symptoms Genitourinary: reports: Burning, Flank Pain (left) Musculoskeletal: reports: No Symptoms Integumentary: reports: No Symptoms Neurological: reports: No Symptoms Endocrine: reports: No Symptoms Hematology/Lymphatic: reports: No Symptoms Psychiatric: reports: No Symptoms Physical Exam Vital Signs: Vital Signs Temperature 99.2 F 10/15/16 07:48 Pulse Rate 112 H 10/15/16 06:00 Respiratory Rate 20 10/15/16 06:00 Blood Pressure 160/75 10/15/16 06:00 O2 Sat by Pulse Oximetry (%) 98 10/15/16 01:05 Constitutional: Yes: Calm, Mild Distress Eyes: Yes: Conjunctiva Clear HENT: Yes: Atraumatic Neck: Yes: Supple, Trachea Midline Cardiovascular: Yes: Regular Rate and Rhythm Respiratory: Yes: Regular, CTA Bilaterally Gastrointestinal: Yes: Normal Bowel Sounds, Soft Renal/: Yes: CVA Tenderness - Left, Preciado Present Musculoskeletal: Yes: WNL Extremities: Yes: WNL Integumentary: Yes: WNL Neurological: Yes: Alert, Oriented Psychiatric: Yes: Alert, Oriented Imaging - Results Chest X-ray: Report Reviewed, Image Reviewed Ultrasound: Report Reviewed, Image Reviewed Assessment/Plan 66 yr old man with recent ureteral stent removal presents with intractable left flank pain found to have worsening of hydronephrosis. #UTI/ sepsis #Hydronephrosis #MARY - #DM II #HTN #Anemia - cva looking at the picture it is worrisome i think patients infection is coming from his kidneys patient has known history of esbl uti plan will start on abx await for final identification of organism urology evaluation if patient needs stent again await for blood cx close monitoring
[2016-10-15] MEDS ORDERED: INSULIN (NOVOLOG) ASPART 100 UNITS/ML 10ML VIAL ONE (11:29)
[2016-10-15] MEDS: HEPARIN NA (PORCINE) 5,000 UNITS/ML 1ML VIAL SQ SCH ×2 (13:50→21:31)
[2016-10-15] MEDS: ACETAMINOPHEN 325 MG TABLET (FP) PO PRN (15:49)
--- NOTE | 2016-10-15 16:52 | PN ---
Physical Exam: SUBJECTIVE: Patient seen and examined. He is laying in bed, he is tolerating food well, denies fever, chills. He does have reflux after he eats. OBJECTIVE: Vital Signs Period Temp Pulse Resp BP Sys/Grissom Pulse Ox Last 24 Hr 99.1 F-101.2 F 86-112 18-20 111-160/61-80 98 PE Neuro: alert, awake, cn 2-12intact Pulm: CTAB CV: s1 s2 rrr no mrg Abd: abd, soft, nt +bs : valero, peritoneal incision closed, healing Ext: warm, no le edema CBCD WBC 13.0 K/mm3 (4.0-10.0) H D 10/14/16 19:53 RBC 4.13 M/mm3 (4.00-5.60) 10/14/16 19:53 Hgb 10.3 GM/dL (11.7-16.9) L 10/14/16 19:53 Hct 32.4 % (35.4-49) L 10/14/16 19:53 MCV 78.5 fl (80-96) L 10/14/16 19:53 MCHC 31.8 g/dl (32.0-35.9) L 10/14/16 19:53 RDW 17.3 % (11.9-15.9) H 10/14/16 19:53 Plt Count 211 K/MM3 (134-434) D 10/14/16 19:53 MPV 9.6 fl (7.5-11.1) D 10/14/16 19:53 CMP Sodium 133 mmol/L (136-145) L 10/14/16 19:53 Potassium 4.2 mmol/L (3.5-5.1) 10/14/16 19:53 Chloride 100 mmol/L (98-107) 10/14/16 19:53 Carbon Dioxide 24 mmol/L (21-32) 10/14/16 19:53 Anion Gap 9 (8-16) 10/14/16 19:53 BUN 18 mg/dL (7-18) D 10/14/16 19:53 Creatinine 1.9 mg/dL (0.7-1.3) H D 10/14/16 19:53 Creat Clearance w eGFR 35.43 (>60) 10/14/16 19:53 Calcium 8.6 mg/dL (8.5-10.1) 10/14/16 19:53 Total Bilirubin 0.1 mg/dL (0.2-1.0) L D 10/14/16 19:53 AST 14 U/L (15-37) L 10/14/16 19:53 ALT 30 U/L (12-78) D 10/14/16 19:53 Alkaline Phosphatase 124 U/L (45-117) H 10/14/16 19:53 Total Protein 7.3 g/dl (6.4-8.2) 10/14/16 19:53 Albumin 3.0 g/dl (3.4-5.0) L 10/14/16 19:53 Active Medications Generic Name Dose Route Start Last Admin Trade Name Freq PRN Reason Stop Dose Admin Acetaminophen 650 mg 10/15/16 10:11 10/15/16 15:49 Tylenol - PO 650 mg Q4H PRN Administration FEVER OR PAIN Amlodipine Besylate 10 mg 10/15/16 10:00 10/15/16 09:53 Norvasc - PO 10 mg DAILY LINDSEY Administration Atorvastatin Calcium 40 mg 10/15/16 22:00 Lipitor - PO HS LINDSEY Ferrous Sulfate 325 mg 10/15/16 10:00 10/15/16 09:53 Feosol - PO 325 mg BID LINDSEY Administration Gabapentin 300 mg 10/15/16 22:00 Neurontin - PO HS LINDSEY Heparin Sodium (Porcine) 5,000 unit 10/15/16 14:00 10/15/16 13:50 Heparin - SQ 5,000 unit TID LINDSEY Administration Ertapenem 1 gm/ Sodium 50 mls @ 100 mls/hr 10/16/16 10:00 Chloride IVPB DAILY [facility] Protocol Insulin Aspart 1 vial 10/15/16 07:00 10/15/16 11:50 Novolog Vial Sliding Scale - SQ 4 units ACHS LINDSEY Administration Protocol Insulin Detemir 18 units 10/15/16 07:15 10/15/16 07:45 Levemir Vial SQ 18 units BIDAC LINDSEY Administration Metoprolol Tartrate 50 mg 10/15/16 10:00 10/15/16 09:53 Lopressor - PO 50 mg BID LINDSEY Administration Pantoprazole Sodium 40 mg 10/15/16 10:00 10/15/16 09:53 Protonix - PO 40 mg DAILY LINDSEY Administration Tamsulosin HCl 0.4 mg 10/15/16 08:30 10/15/16 07:46 Flomax - PO 0.4 mg DAILY@0830 LINDSEY Administration Triamterene/HCTZ 1 cap 10/15/16 10:00 10/15/16 09:53 Dyazide 25/37.5mg PO 1 cap DAILY LINDSEY Administration Microbiology 10/14/16 19:53 Blood Culture - Preliminary Blood - Peripheral Venous Pending Organism 10/14/16 19:42 Blood Culture - Preliminary Blood - Peripheral Venous Pending Organism Assessment: 66 year old male with pmhx of HTN, [place] x2, s/p cardiac stents, CAD, HLD, DM II, and nephrolitiasis, TURP, left kidney stent placement, prostate ca, ESBL UTI in 2015, s/p cysto exchange 09/08 due to left hydroureteronephrosis d/t obstructing stone, admitted s/p stent removal 10/12 now with fever, chills and left flank pain. Plan: 1. Sepsis d/t Pylonephritis - Ertapenem 1gm daily (day 1) - Awaiting blood cultures (x 4 bottle positive) - Monitor fevers - Urology consulted for worsening hydronephrosis on renal US 2. UTI - Blood cx with GNR, previous with klebsiella - Abx as above 3. Diabetes Mellitus, uncontrolled - Levemir 18 units BID - ISS, BMG ACHS 4. HTN - Amlodipine 10 mg daily 5. MARY - Likely due to pyleo - Start gentle fluids 75cc/hr 6. CAD s/p stents - Continue Metoprolol BID - ASA daily 7. Proteinuria, hematuria - Renal work up as out pt - Repeat UA, urine protein cr ratio prior to discharge 8. Hydronephrosis - Continue flomax Visit type - Emergency Visit Emergency Visit: Yes ED Registration Date: 10/14/16 Care time: The patient presented to the Emergency Department on the above date and was hospitalized for further evaluation of their emergent condition. - New Patient This patient is new to me today: Yes Date on this admission: 10/18/16 - Critical Care Critical Care patient: No
[2016-10-15] MEDS ORDERED: MAG HYDROX/AL HYDROX/SIMETH 30 ML UNIT-DOSE CUP PO PRN (16:58)
[2016-10-15] MEDS: SODIUM CHLORIDE 1,000 ML IV SCH (18:19)
[2016-10-15] MEDS: ATORVASTATIN CA 40 MG TABLET (FP) PO SCH (21:31)
[2016-10-15] MEDS: GABAPENTIN 300 MG CAPSULE (FP) PO SCH (21:31)
[2016-10-16] MEDS: ACETAMINOPHEN 325 MG TABLET (FP) PO PRN (05:56)
[2016-10-16] MEDS: HEPARIN NA (PORCINE) 5,000 UNITS/ML 1ML VIAL SQ SCH ×3 (05:57→21:45)
[2016-10-16] MEDS: INSULIN DETEMIR 100 UNITS/ML MDV SQ SCH ×2 (06:21→16:26)
[2016-10-16] MEDS: INSULIN SLIDING SCALE (NOVOLOG) 1 VIAL SQ SCH ×4 (06:21→21:46)
[2016-10-16] MEDS: TAMSULOSIN HCL 0.4 MG CAP.ER.24H (FP) PO SCH (08:35)
[2016-10-16] MEDS ORDERED: PT OWN MED DRAWER 7, Y5N ONE (09:42)
[2016-10-16] MEDS: amLODIPine BESYLATE 10 MG TABLET (FP) PO SCH (09:44)
[2016-10-16] MEDS: METOPROLOL TARTRATE 50 MG TABLET (FP) PO SCH ×2 (09:44→21:46)
[2016-10-16] MEDS: PANTOPRAZOLE 40 MG TABLET (FP) PO SCH (09:44)
[2016-10-16] MEDS: FERROUS SO4 325 MG TABLET (FP) PO SCH ×2 (09:44→21:45)
[2016-10-16] MEDS: TRIAMTERENE AND HCTZ - 37.5 MG/25 MG CAPSULE PO SCH (09:44)
[2016-10-16] MEDS: ERTAPENEM SODIUM 1 GM in SODIUM CHLORIDE 50 ML IVPB SCH (10:57)
[2016-10-16] MEDS ORDERED: INSULIN (NOVOLOG) ASPART 100 UNITS/ML 10ML VIAL ONE ×3 (11:18→20:58)
--- NOTE | 2016-10-16 12:32 | PN ---
Progress Note, Physician History of Present Illness: patient feels slightly better left flank pain improving no other events - Current Medication List Current Medications: Active Medications Acetaminophen (Tylenol -) 650 mg PO Q4H PRN PRN Reason: FEVER OR PAIN Last Admin: 10/16/16 05:56 Dose: 650 mg Al Hydroxide/Mg Hydroxide (Mylanta Oral Suspension -) 30 ml PO Q6H PRN PRN Reason: DYSPEPSIA Amlodipine Besylate (Norvasc -) 10 mg PO DAILY [facility] Last Admin: 10/16/16 09:44 Dose: 10 mg Atorvastatin Calcium (Lipitor -) 40 mg PO HS [facility] Last Admin: 10/15/16 21:31 Dose: 40 mg Ferrous Sulfate (Feosol -) 325 mg PO BID [facility] Last Admin: 10/16/16 09:44 Dose: 325 mg Gabapentin (Neurontin -) 300 mg PO HS [facility] Last Admin: 10/15/16 21:31 Dose: 300 mg Heparin Sodium (Porcine) (Heparin -) 5,000 unit SQ TID [facility] Last Admin: 10/16/16 05:57 Dose: 5,000 unit Ertapenem 1 gm/ Sodium (Chloride) 50 mls @ 100 mls/hr IVPB DAILY [facility] PRN Reason: Protocol Last Admin: 10/16/16 10:57 Dose: 100 mls/hr Sodium Chloride (Normal Saline -) 1,000 mls @ 75 mls/hr IV ASDIR [facility] Last Admin: 10/15/16 18:19 Dose: 75 mls/hr Insulin Aspart (Novolog Vial Sliding Scale -) 1 vial SQ ACHS [facility] PRN Reason: Protocol Last Admin: 10/16/16 11:20 Dose: 4 units Insulin Detemir (Levemir Vial) 18 units SQ BIDAC [facility] Last Admin: 10/16/16 06:21 Dose: 18 units Metoprolol Tartrate (Lopressor -) 50 mg PO BID [facility] Last Admin: 10/16/16 09:44 Dose: 50 mg Pantoprazole Sodium (Protonix -) 40 mg PO DAILY [facility] Last Admin: 10/16/16 09:44 Dose: 40 mg Tamsulosin HCl (Flomax -) 0.4 mg PO DAILY@0830 [facility] Last Admin: 10/16/16 08:35 Dose: 0.4 mg Triamterene/HCTZ (Dyazide 25/37.5mg) 1 cap PO DAILY [facility] Last Admin: 10/16/16 09:44 Dose: 1 cap - Objective Vital Signs: Vital Signs Temperature 98.8 F 10/16/16 09:08 Pulse Rate 111 H 10/16/16 09:08 Respiratory Rate 20 10/16/16 09:08 Blood Pressure 127/69 10/16/16 09:08 O2 Sat by Pulse Oximetry (%) 98 10/15/16 01:05 Constitutional: Yes: Calm, Mild Distress Cardiovascular: Yes: Regular Rate and Rhythm Respiratory: Yes: Regular, CTA Bilaterally Gastrointestinal: Yes: Normal Bowel Sounds, Soft Genitourinary: Yes: Preciado Present Musculoskeletal: Yes: WNL Extremities: Yes: WNL Integumentary: Yes: WNL Neurological: Yes: Alert, Oriented Psychiatric: Yes: Alert, Oriented Labs: INR, PTT INR 1.01 (0.82-1.09) 10/14/16 19:33 Assessment/Plan 66 yr old man with recent ureteral stent removal presents with intractable left flank pain found to have worsening of hydronephrosis. #UTI/ sepsis #Hydronephrosis #MARY - #DM II #HTN #Anemia - cva looking at the picture it is worrisome i think patients infection is coming from his kidneys patient has known history of esbl uti plan continue abx ecoli esbl uti 'gm negative bacteremia hydration urology imnput
[2016-10-16] MEDS: SODIUM CHLORIDE 1,000 ML IV SCH (12:36)
--- NOTE | 2016-10-16 14:16 | PN ---
Progress Note (short form) - Note Progress Note: Subjective: The patient was seen and examined at the bedside, he has no complaints at this time. Tmax 101.1 overnight, cultures sent Current Medications Generic Name Dose Route Start Last Admin Trade Name Freclarence PRN Reason Stop Dose Admin Acetaminophen 650 mg 10/15/16 10:11 10/16/16 05:56 Tylenol - PO 650 mg Q4H PRN Administration FEVER OR PAIN Al Hydroxide/Mg Hydroxide 30 ml 10/15/16 16:58 Mylanta Oral Suspension - PO Q6H PRN DYSPEPSIA Amlodipine Besylate 10 mg 10/15/16 10:00 10/16/16 09:44 Norvasc - PO 10 mg DAILY LINDSEY Administration Atorvastatin Calcium 40 mg 10/15/16 22:00 10/15/16 21:31 Lipitor - PO 40 mg HS LINDSEY Administration Ferrous Sulfate 325 mg 10/15/16 10:00 10/16/16 09:44 Feosol - PO 325 mg BID LINDSEY Administration Gabapentin 300 mg 10/15/16 22:00 10/15/16 21:31 Neurontin - PO 300 mg HS LINDSEY Administration Heparin Sodium (Porcine) 5,000 unit 10/15/16 14:00 10/16/16 05:57 Heparin - SQ 5,000 unit TID LINDSEY Administration Ertapenem 1 gm/ Sodium 50 mls @ 100 mls/hr 10/16/16 10:00 10/16/16 10:57 Chloride IVPB 100 mls/hr DAILY [facility]INDSEY Administration Protocol Sodium Chloride 1,000 mls @ 75 mls/hr 10/15/16 17:15 10/16/16 12:36 Normal Saline - IV 75 mls/hr ASDIR LINDSEY Administration Insulin Aspart 1 vial 10/15/16 07:00 10/16/16 11:20 Novolog Vial Sliding Scale - SQ 4 units ACHS LINDSEY Administration Protocol Insulin Detemir 18 units 10/15/16 07:15 10/16/16 06:21 Levemir Vial SQ 18 units BIDAC LINDSEY Administration Metoprolol Tartrate 50 mg 10/15/16 10:00 10/16/16 09:44 Lopressor - PO 50 mg BID LINDSEY Administration Pantoprazole Sodium 40 mg 10/15/16 10:00 10/16/16 09:44 Protonix - PO 40 mg DAILY LINDSEY Administration Tamsulosin HCl 0.4 mg 10/15/16 08:30 10/16/16 08:35 Flomax - PO 0.4 mg DAILY@0830 LINDSEY Administration Triamterene/HCTZ 1 cap 10/15/16 10:00 10/16/16 09:44 Dyazide 25/37.5mg PO 1 cap DAILY [facility]INDSEY Administration Objective: Vital Signs Period Temp Pulse Resp BP Sys/Grissom Pulse Ox Last 24 Hr 98.8 F-101.1 F 80-111 20-22 107-154/69-98 Physical Exam: General: NAD, A&Ox3 Lungs: CTA bilaterally Heart: RRR, S1S2 Abd: Soft, non-tender, non-distended. Normoactive bowel sounds : Preciado catheter in place with clear/yellow urine. peritoneal incision healing , c/d/i Ext: Warm, well-perfused. 2+ DP/PT bilaterally Neuro: CN 2-12 intact CBCD WBC 13.0 K/mm3 (4.0-10.0) H D 10/14/16 19:53 RBC 4.13 M/mm3 (4.00-5.60) 10/14/16 19:53 Hgb 10.3 GM/dL (11.7-16.9) L 10/14/16 19:53 Hct 32.4 % (35.4-49) L 10/14/16 19:53 MCV 78.5 fl (80-96) L 10/14/16 19:53 MCHC 31.8 g/dl (32.0-35.9) L 10/14/16 19:53 RDW 17.3 % (11.9-15.9) H 10/14/16 19:53 Plt Count 211 K/MM3 (134-434) D 10/14/16 19:53 MPV 9.6 fl (7.5-11.1) D 10/14/16 19:53 CMP Sodium 133 mmol/L (136-145) L 10/14/16 19:53 Potassium 4.2 mmol/L (3.5-5.1) 10/14/16 19:53 Chloride 100 mmol/L (98-107) 10/14/16 19:53 Carbon Dioxide 24 mmol/L (21-32) 10/14/16 19:53 Anion Gap 9 (8-16) 10/14/16 19:53 BUN 18 mg/dL (7-18) D 10/14/16 19:53 Creatinine 1.9 mg/dL (0.7-1.3) H D 10/14/16 19:53 Creat Clearance w eGFR 35.43 (>60) 10/14/16 19:53 Random Glucose 328 mg/dL (74-106) H* D 10/14/16 19:53 Calcium 8.6 mg/dL (8.5-10.1) 10/14/16 19:53 Total Bilirubin 0.1 mg/dL (0.2-1.0) L D 10/14/16 19:53 AST 14 U/L (15-37) L 10/14/16 19:53 ALT 30 U/L (12-78) D 10/14/16 19:53 Alkaline Phosphatase 124 U/L (45-117) H 10/14/16 19:53 Total Protein 7.3 g/dl (6.4-8.2) 10/14/16 19:53 Albumin 3.0 g/dl (3.4-5.0) L 10/14/16 19:53 CARDIAC ENZYMES Creatine Kinase 56 IU/L (39-308) 10/14/16 19:53 Troponin I < 0.02 ng/ml (0.00-0.05) 10/14/16 19:53 Microbiology 10/14/16 19:30 Urine - Urine Preciado Urine Culture - Preliminary Lactose Fermenting Neg Bacilli 10/14/16 19:42 Blood - Peripheral Venous Blood Culture - Preliminary Lactose Fermenting Neg Bacilli 10/14/16 19:53 Blood - Peripheral Venous Blood Culture - Preliminary Lactose Fermenting Neg Bacilli Assessment: This is a 66 year old male with PMHx of ESBL UTI, HTN, [place] x2 (s/p cardiac stents), CAD, hyperlipidemia, DMII, neprholithiasis, TURP, left kidney stent placement, prostate cancer who presented to the ED s/p stent removal (2 days ago) with fever, chills, and left flank pain. 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, UTI - Continue Ertapenem (10/15- ) - Repeat blood cultures today given Tmax 101.1 overnight - Monitor fevers - WBC elevated - Appreciate ID consult 2) : MARY - Renal ultrasound 10/14 with moderate to marked left renal hydronephrosis that has worsened since prior exam on 01/18/16 - F/u Cr today - Continue to trend kidney function - Continue gentle fluids - Preciado catheter in place draining urine - F/u urology consult 3) Cardiology: CAD s/p stents - Hold ASA if any urological procedures need to be done - Continue Lipitor - Continue Lopressor HTN - Continue Norvasc 4) Endocrine: DN - ISS ACHS - BGM ACHS - Continue Levemir 18u sq bid 5) Oncology: Prostate cancer s/p TURP - Continue flomax 6) F/E/N: - Monitor electrolytes - Diabetic/sodium controlled diet 7) Prophylaxis: - Heparin 5,000u sq tid - OOB ambulating 8) Dispo: - Requires continued inpatient care CODE STATUS: FULL CODE Visit type - Emergency Visit Emergency Visit: Yes ED Registration Date: 10/14/16 Care time: The patient presented to the Emergency Department on the above date and was hospitalized for further evaluation of their emergent condition. - New Patient This patient is new to me today: Yes Date on this admission: 10/16/16 - Critical Care Critical Care patient: No
[2016-10-16 15:15] LABS: BASOPHIL 0.3 % (0-2.0); EOSINOPHIL 0.6 % (0-4.5); MCH 25.8 pg (25.7-33.7); MCHC 33.1 g/dl (32.0-35.9); MEAN PLT VOLUME 11.2 fl (7.5-11.1); NEUTROPHILS 89.7 % (42.8-82.8); PLATELET COUNT 128 K/MM3 (134-434); RDW 17.3 % (11.9-15.9); WHITE BLOOD COUNT 14.4 K/mm3 (4.0-10.0)
[2016-10-16 15:43] LABS: ALBUMIN 2.3 g/dl (3.4-5.0); BILIRUBIN,TOTAL 0.2 mg/dL (0.2-1.0); CALCIUM 7.9 mg/dL (8.5-10.1); COCKROFT - GAULT 46.83; CREATININE 1.6 mg/dL (0.7-1.3); TOT PROT 6.4 g/dl (6.4-8.2)
--- NOTE | 2016-10-16 15:48 | CONS ---
DATE OF CONSULTATION: DATE OF DICTATION: 10/16/2016 HISTORY OF PRESENT ILLNESS: Patient is a 66-year-old male with a history of nephrolithiasis, presents to the emergency room with acute onset of left flank pain. This is acute in nature and commenced in the left flank and radiated down to the left lower quadrant, left groin and left testicle. Patient does have history of prostate cancer for which he was treated. He does also have a history of a mild stress urinary incontinence. He is a diabetic. Has had multiple stones and recurrent urinary tract infections in the past. He denies any chest pain or shortness of breath. Presently, the patient denies nausea or vomiting. He states that he feels bloated. He is allergic to lisinopril. He is on multiple medications including Norvasc, Flomax, Neurontin, Lopressor, Lipitor, insulin and triamterene. His abdomen is globus. There is left-sided tenderness. No masses are palpated. Extremities reveal a full range of motion. Patient's temperature was 102.3 on admission. Blood pressure 175/57. O2 saturation 96%. White count on admission was 13,000. Hemoglobin/hematocrit is 10.3/32.4. Platelets were 211. The BUN and creatinine were 18/1.9. A previous urine culture revealed proteus sensitive to ertapenem. A Preciado catheter was placed into the patient, and approximately 50 mL of cloudy, pink urine was drained. A CAT scan of the abdomen revealed severe left hydronephrosis with right renal lipomatosus. IMPRESSION AT PRESENT: Possible left ureteral colic and stone. PLAN: 1. Will strain urine. 2. Increase p.o. fluids. 3. Repeat ultrasound on Tuesday if hydronephrosis is still present and patient does not pass a stone. 4. Will recommend a cystoscopy, a left retrograde pyelogram and possible laser lithotripsy. Will follow with you. Omar [id number]
[2016-10-16] MEDS: GABAPENTIN 300 MG CAPSULE (FP) PO SCH (21:45)
[2016-10-16] MEDS: ATORVASTATIN CA 40 MG TABLET (FP) PO SCH (21:45)
[2016-10-17] MEDS: HEPARIN NA (PORCINE) 5,000 UNITS/ML 1ML VIAL SQ SCH ×3 (06:36→21:38)
[2016-10-17] MEDS: INSULIN DETEMIR 100 UNITS/ML MDV SQ SCH ×2 (06:36→17:37)
[2016-10-17] MEDS: INSULIN SLIDING SCALE (NOVOLOG) 1 VIAL SQ SCH ×4 (06:38→21:38)
[2016-10-17] MEDS ORDERED: PT OWN MED DRAWER 7, Y5N ONE (08:24)
[2016-10-17 08:53] LABS: MCH 25.4 pg (25.7-33.7); MCHC 32.3 g/dl (32.0-35.9); MEAN CELL VOLUME 78.7 fl (80-96); MEAN PLT VOLUME 10.9 fl (7.5-11.1); PLATELET COUNT 132 K/MM3 (134-434); RDW 17.3 % (11.9-15.9); WHITE BLOOD COUNT 10.7 K/mm3 (4.0-10.0)
[2016-10-17] MEDS: TRIAMTERENE AND HCTZ - 37.5 MG/25 MG CAPSULE PO SCH (09:07)
[2016-10-17] MEDS: SODIUM CHLORIDE 1,000 ML IV SCH (09:07)
[2016-10-17] MEDS: METOPROLOL TARTRATE 50 MG TABLET (FP) PO SCH ×2 (09:08→21:39)
[2016-10-17] MEDS: PANTOPRAZOLE 40 MG TABLET (FP) PO SCH (09:08)
[2016-10-17] MEDS: FERROUS SO4 325 MG TABLET (FP) PO SCH ×2 (09:08→21:39)
[2016-10-17] MEDS: TAMSULOSIN HCL 0.4 MG CAP.ER.24H (FP) PO SCH (09:08)
[2016-10-17] MEDS: amLODIPine BESYLATE 10 MG TABLET (FP) PO SCH (09:08)
[2016-10-17] MEDS: ERTAPENEM SODIUM 1 GM in SODIUM CHLORIDE 50 ML IVPB SCH (09:14)
[2016-10-17 09:18] LABS: ALBUMIN 2.4 g/dl (3.4-5.0); BILIRUBIN,TOTAL 0.2 mg/dL (0.2-1.0); COCKROFT - GAULT 49.95; CREATININE 1.5 mg/dL (0.7-1.3); TOT PROT 6.9 g/dl (6.4-8.2)
[2016-10-17] MEDS ORDERED: INSULIN (NOVOLOG) ASPART 100 UNITS/ML 10ML VIAL ONE ×2 (11:12→21:37)
--- NOTE | 2016-10-17 13:48 | PN ---
Progress Note (short form) - Note Progress Note: Subjective: The patient was seen and examined at the bedside, he has no complaints at this time. Tmax Current Medications Generic Name Dose Route Start Last Admin Trade Name Sj PRN Reason Stop Dose Admin Acetaminophen 650 mg 10/15/16 10:11 10/16/16 05:56 Tylenol - PO 650 mg Q4H PRN Administration FEVER OR PAIN Al Hydroxide/Mg Hydroxide 30 ml 10/15/16 16:58 Mylanta Oral Suspension - PO Q6H PRN DYSPEPSIA Amlodipine Besylate 10 mg 10/15/16 10:00 10/17/16 09:08 Norvasc - PO 10 mg DAILY LINDSEY Administration Atorvastatin Calcium 40 mg 10/15/16 22:00 10/16/16 21:45 Lipitor - PO 40 mg HS LINDSEY Administration Ferrous Sulfate 325 mg 10/15/16 10:00 10/17/16 09:08 Feosol - PO 325 mg BID LINDSEY Administration Gabapentin 300 mg 10/15/16 22:00 10/16/16 21:45 Neurontin - PO 300 mg HS LINDSEY Administration Heparin Sodium (Porcine) 5,000 unit 10/15/16 14:00 10/17/16 06:36 Heparin - SQ 5,000 unit TID LINDSEY Administration Ertapenem 1 gm/ Sodium 50 mls @ 100 mls/hr 10/16/16 10:00 10/17/16 09:14 Chloride IVPB 100 mls/hr DAILY LINDSEY Administration Protocol Sodium Chloride 1,000 mls @ 75 mls/hr 10/15/16 17:15 10/17/16 09:07 Normal Saline - IV 75 mls/hr ASDIR LINDSEY Administration Insulin Aspart 1 vial 10/15/16 07:00 10/17/16 11:25 Novolog Vial Sliding Scale - SQ 4 units ACHS LINDSEY Administration Protocol Insulin Detemir 18 units 10/15/16 07:15 10/17/16 06:36 Levemir Vial SQ 18 units BIDAC [facility]SEY Administration Metoprolol Tartrate 50 mg 10/15/16 10:00 10/17/16 09:08 Lopressor - PO 50 mg BID LINDSEY Administration Pantoprazole Sodium 40 mg 10/15/16 10:00 10/17/16 09:08 Protonix - PO 40 mg DAILY LINDSEY Administration Tamsulosin HCl 0.4 mg 10/15/16 08:30 10/17/16 09:08 Flomax - PO 0.4 mg DAILY@0830 L[facility]Y Administration Triamterene/HCTZ 1 cap 10/15/16 10:00 10/17/16 09:07 Dyazide 25/37.5mg PO 1 cap DAILY LIND[facility]Y Administration Objective: Vital Signs Period Temp Pulse Resp BP Sys/Grissom Pulse Ox Last 24 Hr 99.0 F-100.1 F 80-99 18-18 128-149/66-84 98 Physical Exam: General: NAD, A&Ox3 Lungs: CTA bilaterally Heart: RRR, S1S2 Abd: Soft, non-tender, non-distended. Normoactive bowel sounds : Preciado catheter in place with clear/yellow urine. peritoneal incision healing , c/d/i Ext: Warm, well-perfused. 2+ DP/PT bilaterally Neuro: CN 2-12 intact CBCD WBC 10.7 K/mm3 (4.0-10.0) H 10/17/16 07:30 RBC 3.84 M/mm3 (4.00-5.60) L 10/17/16 07:30 Hgb 9.8 GM/dL (11.7-16.9) L 10/17/16 07:30 Hct 30.2 % (35.4-49) L 10/17/16 07:30 MCV 78.7 fl (80-96) L 10/17/16 07:30 MCHC 32.3 g/dl (32.0-35.9) 10/17/16 07:30 RDW 17.3 % (11.9-15.9) H 10/17/16 07:30 Plt Count 132 K/MM3 (134-434) L 10/17/16 07:30 MPV 10.9 fl (7.5-11.1) 10/17/16 07:30 CMP Sodium 139 mmol/L (136-145) 10/17/16 07:30 Potassium 3.6 mmol/L (3.5-5.1) 10/17/16 07:30 Chloride 107 mmol/L (98-107) 10/17/16 07:30 Carbon Dioxide 23 mmol/L (21-32) 10/17/16 07:30 Anion Gap 9 (8-16) 10/17/16 07:30 BUN 19 mg/dL (7-18) H 10/17/16 07:30 Creatinine 1.5 mg/dL (0.7-1.3) H 10/17/16 07:30 Creat Clearance w eGFR 46.54 (>60) 10/17/16 07:30 Random Glucose 118 mg/dL (74-106) H D 10/17/16 07:30 Calcium 8.0 mg/dL (8.5-10.1) L 10/17/16 07:30 Total Bilirubin 0.2 mg/dL (0.2-1.0) 10/17/16 07:30 AST 37 U/L (15-37) D 10/17/16 07:30 ALT 50 U/L (12-78) D 10/17/16 07:30 Alkaline Phosphatase 120 U/L (45-117) H 10/17/16 07:30 Total Protein 6.9 g/dl (6.4-8.2) 10/17/16 07:30 Albumin 2.4 g/dl (3.4-5.0) L 10/17/16 07:30 CARDIAC ENZYMES Creatine Kinase 56 IU/L (39-308) 10/14/16 19:53 Troponin I < 0.02 ng/ml (0.00-0.05) 10/14/16 19:53 Microbiology 10/16/16 10:40 Blood - Peripheral Venous Blood Culture - Preliminary NO GROWTH OBTAINED AFTER 24 HOURS, INCUBATION TO CONTINUE FOR 4 DAYS. 10/16/16 10:20 Blood - Peripheral Venous Blood Culture - Preliminary NO GROWTH OBTAINED AFTER 24 HOURS, INCUBATION TO CONTINUE FOR 4 DAYS. 10/14/16 19:42 Blood - Peripheral Venous Blood Culture - Final Escherichia Coli Esbl Substation Inspector 10/14/16 19:30 Urine - Urine Preciado Urine Culture - Final Escherichia Coli Esbl Substation Inspector 10/14/16 19:53 Blood - Peripheral Venous Blood Culture - Preliminary Lactose Fermenting Neg Bacilli Assessment: This is a 66 year old male with PMHx of ESBL UTI, HTN, [place] x2 (s/p cardiac stents), CAD, hyperlipidemia, DMII, neprholithiasis, TURP, left kidney stent placement, prostate cancer who presented to the ED s/p stent removal (2 days ago) with fever, chills, and left flank pain. 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, UTI - Continue Ertapenem (10/15- ) - Blood cultures with NGTD - Monitor fevers - WBC elevated - Appreciate ID consult 2) : MARY - Renal ultrasound 10/14 with moderate to marked left renal hydronephrosis that has worsened since prior exam on 01/18/16 - F/u renal/bladder ultrasound, performed yesterday awaiting read - Cr 1.5 today - Continue to trend kidney function - Continue gentle fluids - Preciado catheter in place draining urine - F/u urology consult (called office and left message on 10/16, 10/17) 3) Cardiology: CAD s/p stents - Hold ASA if any urological procedures need to be done - Continue Lipitor - Continue Lopressor HTN - Continue Norvasc 4) Endocrine: DN - ISS ACHS - BGM ACHS - Continue Levemir 18u sq bid 5) Oncology: Prostate cancer s/p TURP - Continue flomax 6) F/E/N: - Monitor electrolytes - Diabetic/sodium controlled diet 7) Prophylaxis: - Heparin 5,000u sq tid - OOB ambulating 8) Dispo: - Requires continued inpatient care CODE STATUS: FULL CODE Visit type - Emergency Visit Emergency Visit: Yes ED Registration Date: 10/14/16 Care time: The patient presented to the Emergency Department on the above date and was hospitalized for further evaluation of their emergent condition. - New Patient This patient is new to me today: No - Critical Care Critical Care patient: No
--- NOTE | 2016-10-17 13:57 | PN ---
Progress Note, Physician History of Present Illness: patient c/o of pain in the scrotum no hematuria foleys in place left flank pain nearly resolved - Current Medication List Current Medications: Active Medications Acetaminophen (Tylenol -) 650 mg PO Q4H PRN PRN Reason: FEVER OR PAIN Last Admin: 10/16/16 05:56 Dose: 650 mg Al Hydroxide/Mg Hydroxide (Mylanta Oral Suspension -) 30 ml PO Q6H PRN PRN Reason: DYSPEPSIA Amlodipine Besylate (Norvasc -) 10 mg PO DAILY [facility] Last Admin: 10/17/16 09:08 Dose: 10 mg Atorvastatin Calcium (Lipitor -) 40 mg PO HS [facility] Last Admin: 10/16/16 21:45 Dose: 40 mg Ferrous Sulfate (Feosol -) 325 mg PO BID [facility] Last Admin: 10/17/16 09:08 Dose: 325 mg Gabapentin (Neurontin -) 300 mg PO HS [facility] Last Admin: 10/16/16 21:45 Dose: 300 mg Heparin Sodium (Porcine) (Heparin -) 5,000 unit SQ TID [facility] Last Admin: 10/17/16 13:53 Dose: 5,000 unit Ertapenem 1 gm/ Sodium (Chloride) 50 mls @ 100 mls/hr IVPB DAILY [facility] PRN Reason: Protocol Last Admin: 10/17/16 09:14 Dose: 100 mls/hr Sodium Chloride (Normal Saline -) 1,000 mls @ 75 mls/hr IV ASDIR [facility] Last Admin: 10/17/16 09:07 Dose: 75 mls/hr Insulin Aspart (Novolog Vial Sliding Scale -) 1 vial SQ ACHS [facility] PRN Reason: Protocol Last Admin: 10/17/16 11:25 Dose: 4 units Insulin Detemir (Levemir Vial) 18 units SQ BIDAC [facility] Last Admin: 10/17/16 06:36 Dose: 18 units Metoprolol Tartrate (Lopressor -) 50 mg PO BID [facility] Last Admin: 10/17/16 09:08 Dose: 50 mg Pantoprazole Sodium (Protonix -) 40 mg PO DAILY [facility] Last Admin: 10/17/16 09:08 Dose: 40 mg Tamsulosin HCl (Flomax -) 0.4 mg PO DAILY@0830 [facility] Last Admin: 10/17/16 09:08 Dose: 0.4 mg Triamterene/HCTZ (Dyazide 25/37.5mg) 1 cap PO DAILY [facility] Last Admin: 10/17/16 09:07 Dose: 1 cap - Objective Vital Signs: Vital Signs Temperature 99.0 F 10/17/16 08:00 Pulse Rate 80 10/17/16 08:00 Respiratory Rate 18 10/17/16 08:00 Blood Pressure 146/84 10/17/16 08:00 O2 Sat by Pulse Oximetry (%) 98 10/17/16 09:00 Constitutional: Yes: Calm, Mild Distress Cardiovascular: Yes: Regular Rate and Rhythm Respiratory: Yes: Regular, CTA Bilaterally Gastrointestinal: Yes: Normal Bowel Sounds, Soft Genitourinary: Yes: Preciado Present, Other (scrotal pain) Musculoskeletal: Yes: WNL Extremities: Yes: WNL Neurological: Yes: Alert, Oriented Psychiatric: Yes: Alert, Oriented Labs: CBC, BMP 10/17/16 07:30 10/17/16 07:30 INR, PTT INR 1.01 (0.82-1.09) 10/14/16 19:33 Assessment/Plan 66 yr old man with recent ureteral stent removal presents with intractable left flank pain found to have worsening of hydronephrosis. #UTI/ sepsis #Hydronephrosis #MARY - #DM II #HTN #Anemia - cva repeat blood cx negative plan continue abx ecoli esbl uti 'gm negative bacteremia hydration need urology to see the patient
[2016-10-17] MEDS: ACETAMINOPHEN 325 MG TABLET (FP) PO PRN (15:14)
[2016-10-17] MEDS ORDERED: oxyCODONE HCL 5 MG TABLET PO ONE (17:19)
[2016-10-17] MEDS: ATORVASTATIN CA 40 MG TABLET (FP) PO SCH (21:39)
[2016-10-17] MEDS: GABAPENTIN 300 MG CAPSULE (FP) PO SCH (21:39)
[2016-10-18] MEDS: SODIUM CHLORIDE 1,000 ML IV SCH ×3 (04:28→17:14)
[2016-10-18] MEDS: INSULIN SLIDING SCALE (NOVOLOG) 1 VIAL SQ SCH ×4 (06:27→22:10)
[2016-10-18] MEDS: INSULIN DETEMIR 100 UNITS/ML MDV SQ SCH ×2 (06:27→17:14)
[2016-10-18] MEDS: HEPARIN NA (PORCINE) 5,000 UNITS/ML 1ML VIAL SQ SCH ×3 (06:28→22:09)
[2016-10-18 08:31] LABS: MCH 25.5 pg (25.7-33.7); MCHC 32.2 g/dl (32.0-35.9); MEAN CELL VOLUME 79.1 fl (80-96); MEAN PLT VOLUME 10.7 fl (7.5-11.1); PLATELET COUNT 147 K/MM3 (134-434); RDW 17.4 % (11.9-15.9); WHITE BLOOD COUNT 10.8 K/mm3 (4.0-10.0)
[2016-10-18] MEDS: TAMSULOSIN HCL 0.4 MG CAP.ER.24H (FP) PO SCH (08:46)
[2016-10-18 09:00] LABS: ALBUMIN 2.6 g/dl (3.4-5.0); BILIRUBIN,TOTAL 0.3 mg/dL (0.2-1.0); CALCIUM 8.4 mg/dL (8.5-10.1); COCKROFT - GAULT 49.95; CREATININE 1.5 mg/dL (0.7-1.3); TOT PROT 7.4 g/dl (6.4-8.2)
[2016-10-18] MEDS ORDERED: PT OWN MED DRAWER 7, Y5N ONE (10:06)
[2016-10-18] MEDS: ERTAPENEM SODIUM 1 GM in SODIUM CHLORIDE 50 ML IVPB SCH (10:08)
[2016-10-18] MEDS: FERROUS SO4 325 MG TABLET (FP) PO SCH ×2 (10:11→22:09)
[2016-10-18] MEDS: amLODIPine BESYLATE 10 MG TABLET (FP) PO SCH (10:11)
[2016-10-18] MEDS: METOPROLOL TARTRATE 50 MG TABLET (FP) PO SCH ×2 (10:11→22:09)
[2016-10-18] MEDS: TRIAMTERENE AND HCTZ - 37.5 MG/25 MG CAPSULE PO SCH (10:11)
[2016-10-18] MEDS: PANTOPRAZOLE 40 MG TABLET (FP) PO SCH (10:11)
--- NOTE | 2016-10-18 10:56 | PN ---
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 pt underwent hyperbaric oxygen therapy which stopped the hematuria. pt also developed urinary incontinence secondary to poor coapdation of external sphincter due to radiation therapy. recently (10/03) pt underwent placement of a colpoplast male sling via the perinieum for his urinary incontinence. the wound is clean and dry. will d/c valero and give a trial at voiding. the Lt hydronephrosis is chronic in nature. pt is s/p Lt laser lithotripsy w stent removal last month. Will obtain a diuretic nuclear renal scan to r/o mechanical obstruction vs adynamic obstruction.,
--- NOTE | 2016-10-18 12:47 | PN ---
Physical Exam: SUBJECTIVE: Patient seen and examined. He c/o L sided abdominal pain when he takes a deep breathing, overall he feels better. OBJECTIVE: Vital Signs Period Temp Pulse Resp BP Sys/Grissom Pulse Ox Last 24 Hr 98.2 F-99.9 F 82-91 18-20 123-142/67-76 97 PE Neuro: alert, awake, cn 2-12intact Pulm: CTAB CV: s1 s2 rrr no mrg Abd: abd, soft, nt +bs : valero clear yellow urine Ext: warm, no le edema Laboratory Results - last 24 hr 10/18/16 10/18/16 06:15 06:15 WBC 10.8 H RBC 4.09 Hgb 10.4 L Hct 32.4 L MCV 79.1 L MCHC 32.2 RDW 17.4 H Plt Count 147 MPV 10.7 Sodium 139 Potassium 3.7 Chloride 106 Carbon Dioxide 23 Anion Gap 10 BUN 22 H Creatinine 1.5 H Creat Clearance w eGFR 46.54 POC Glucometer Random Glucose 146 H D Calcium 8.4 L Total Bilirubin 0.3 D AST 55 H D ALT 93 H D Alkaline Phosphatase 152 H D Total Protein 7.4 Albumin 2.6 L Active Medications Generic Name Dose Route Start Last Admin Trade Name Freq PRN Reason Stop Dose Admin Acetaminophen 650 mg 10/15/16 10:11 10/17/16 15:14 Tylenol - PO 650 mg Q4H PRN Administration FEVER OR PAIN Al Hydroxide/Mg Hydroxide 30 ml 10/15/16 16:58 Mylanta Oral Suspension - PO Q6H PRN DYSPEPSIA Amlodipine Besylate 10 mg 10/15/16 10:00 10/18/16 10:11 Norvasc - PO 10 mg DAILY LINDSEY Administration Atorvastatin Calcium 40 mg 10/15/16 22:00 10/17/16 21:39 Lipitor - PO 40 mg HS LINDSEY Administration Ferrous Sulfate 325 mg 10/15/16 10:00 10/18/16 10:11 Feosol - PO 325 mg BID LINDSEY Administration Gabapentin 300 mg 10/15/16 22:00 10/17/16 21:39 Neurontin - PO 300 mg HS LINDSEY Administration Heparin Sodium (Porcine) 5,000 unit 10/15/16 14:00 10/18/16 06:28 Heparin - SQ 5,000 unit TID LINDSEY Administration Ertapenem 1 gm/ Sodium 50 mls @ 100 mls/hr 10/16/16 10:00 10/18/16 10:08 Chloride IVPB 100 mls/hr DAILY LINDSEY Administration Protocol Sodium Chloride 1,000 mls @ 75 mls/hr 10/15/16 17:15 10/18/16 04:28 Normal Saline - IV 75 mls/hr ASDIR LINDSEY Administration Insulin Aspart 1 vial 10/15/16 07:00 10/18/16 11:36 Novolog Vial Sliding Scale - SQ 4 units ACHS LINDSEY Administration Protocol Insulin Detemir 18 units 10/15/16 07:15 10/18/16 06:27 Levemir Vial SQ 18 units BIDAC LINDSEY Administration Metoprolol Tartrate 50 mg 10/15/16 10:00 10/18/16 10:11 Lopressor - PO 50 mg BID LINDSEY Administration Pantoprazole Sodium 40 mg 10/15/16 10:00 10/18/16 10:11 Protonix - PO 40 mg DAILY LINDSEY Administration Tamsulosin HCl 0.4 mg 10/15/16 08:30 10/18/16 08:46 Flomax - PO 0.4 mg DAILY@0830 LINDSEY Administration Triamterene/HCTZ 1 cap 10/15/16 10:00 10/18/16 10:11 Dyazide 25/37.5mg PO 1 cap DAILY [facility]SEY Administration Microbiology 10/16/16 10:40 Blood - Peripheral Venous Blood Culture - Preliminary NO GROWTH OBTAINED AFTER 48 HOURS, INCUBATION TO CONTINUE FOR 3 DAYS. 10/16/16 10:20 Blood - Peripheral Venous Blood Culture - Preliminary NO GROWTH OBTAINED AFTER 48 HOURS, INCUBATION TO CONTINUE FOR 3 DAYS. 10/14/16 19:42 Blood - Peripheral Venous Blood Culture - Final Escherichia Coli Esbl Senior Professional Services Consultant 10/14/16 19:30 Urine - Urine Valero Urine Culture - Final Escherichia Coli Esbl Senior Professional Services Consultant 10/14/16 19:53 Blood - Peripheral Venous Blood Culture - Preliminary Lactose Fermenting Neg Bacilli Imaging: - Renal ultrasound 10/14 with moderate to marked left renal hydronephrosis that has worsened since prior exam on 01/18/16 Assessment: 66 year old male with PMHx of ESBL UTI, HTN, [place] x2 (s/p cardiac stents), CAD, hyperlipidemia, DMII, neprholithiasis, TURP, left kidney stent placement, prostate cancer admitted s/p stent removal on 10/12 with fever, chills , and left flank pain. Plan: 1. 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 Coli UTI - Leukocytosis improving - Ertapenem day 4 2. Left hydronephrosis, chronic - r/o mechanical obstruction vs adynamic obstruction - Diuretic nuclear renal scan tomorrow - Will stop HCTZ at this time, for test and MARY - DC Valero for voiding trial 3. MARY - Cr unchanged - Continue gentle fluids - Renal/bladder ultrasound reviewed, hydro unchanged - Stop HCTZ/protonix 3. CAD s/p stents - Hold ASA for now for possible urological procedure - Continue Lipitor - Continue Lopressor 5. HTN - Continue Norvasc 6. DM II - Increase Levemir 20u sq bid - Increase ISS - BGM ACHS 7. Prostate cancer s/p TURP - Continue flomax 8. Prophylaxis - Heparin 5,000u sq tid - OOB ambulating Visit type - Emergency Visit Emergency Visit: Yes ED Registration Date: 10/14/16 Care time: The patient presented to the Emergency Department on the above date and was hospitalized for further evaluation of their emergent condition. - New Patient This patient is new to me today: No - Critical Care Critical Care patient: No
--- NOTE | 2016-10-18 18:30 | PN ---
Progress Note, Physician History of Present Illness: patient still c/o of flank pain getting better - Current Medication List Current Medications: Active Medications Acetaminophen (Tylenol -) 650 mg PO Q4H PRN PRN Reason: FEVER OR PAIN Last Admin: 10/17/16 15:14 Dose: 650 mg Al Hydroxide/Mg Hydroxide (Mylanta Oral Suspension -) 30 ml PO Q6H PRN PRN Reason: DYSPEPSIA Amlodipine Besylate (Norvasc -) 10 mg PO DAILY [facility] Last Admin: 10/18/16 10:11 Dose: 10 mg Atorvastatin Calcium (Lipitor -) 40 mg PO HS [facility] Last Admin: 10/17/16 21:39 Dose: 40 mg Ferrous Sulfate (Feosol -) 325 mg PO BID [facility] Last Admin: 10/18/16 10:11 Dose: 325 mg Gabapentin (Neurontin -) 300 mg PO HS [facility] Last Admin: 10/17/16 21:39 Dose: 300 mg Heparin Sodium (Porcine) (Heparin -) 5,000 unit SQ TID [facility] Last Admin: 10/18/16 14:16 Dose: 5,000 unit Ertapenem 1 gm/ Sodium (Chloride) 50 mls @ 100 mls/hr IVPB DAILY [facility] PRN Reason: Protocol Last Admin: 10/18/16 10:08 Dose: 100 mls/hr Sodium Chloride (Normal Saline -) 1,000 mls @ 75 mls/hr IV ASDIR [facility] Last Admin: 10/18/16 17:14 Dose: Not Given Insulin Aspart (Novolog Vial Sliding Scale -) 1 vial SQ ACHS [facility] PRN Reason: Protocol Last Admin: 10/18/16 16:39 Dose: Not Given Insulin Detemir (Levemir Vial) 20 units SQ BIDAC [facility] Last Admin: 10/18/16 17:14 Dose: 20 units Metoprolol Tartrate (Lopressor -) 50 mg PO BID [facility] Last Admin: 10/18/16 10:11 Dose: 50 mg Ranitidine HCl (Zantac -) 150 mg PO DAILY [facility] Tamsulosin HCl (Flomax -) 0.4 mg PO DAILY@0830 [facility] Last Admin: 10/18/16 08:46 Dose: 0.4 mg - Objective Vital Signs: Vital Signs Temperature 98.2 F 10/18/16 14:11 Pulse Rate 93 H 10/18/16 14:11 Respiratory Rate 19 10/18/16 14:11 Blood Pressure 139/84 10/18/16 14:11 O2 Sat by Pulse Oximetry (%) 97 10/17/16 21:00 Constitutional: Yes: Calm, Mild Distress Cardiovascular: Yes: Regular Rate and Rhythm Respiratory: Yes: Regular, CTA Bilaterally Gastrointestinal: Yes: Normal Bowel Sounds, Soft Genitourinary: Yes: Preciado Present, Other Musculoskeletal: Yes: WNL Extremities: Yes: WNL Neurological: Yes: Alert, Oriented Psychiatric: Yes: Alert, Oriented Labs: CBC, BMP 10/18/16 06:15 10/18/16 06:15 INR, PTT INR 1.01 (0.82-1.09) 10/14/16 19:33 Assessment/Plan 66 yr old man with recent ureteral stent removal presents with intractable left flank pain found to have worsening of hydronephrosis. #UTI/ sepsis #Hydronephrosis #MARY - #DM II #HTN #Anemia - cva plan continue abx ecoli esbl uti 'gm negative bacteremia hydration await urology input
[2016-10-18] MEDS ORDERED: INSULIN (NOVOLOG) ASPART 100 UNITS/ML 10ML VIAL ONE (22:07)
[2016-10-18] MEDS: ATORVASTATIN CA 40 MG TABLET (FP) PO SCH (22:09)
[2016-10-18] MEDS: GABAPENTIN 300 MG CAPSULE (FP) PO SCH (22:09)
[2016-10-19] MEDS: HEPARIN NA (PORCINE) 5,000 UNITS/ML 1ML VIAL SQ SCH ×3 (06:26→22:50)
[2016-10-19] MEDS: INSULIN DETEMIR 100 UNITS/ML MDV SQ SCH ×2 (06:26→17:17)
[2016-10-19] MEDS: INSULIN SLIDING SCALE (NOVOLOG) 1 VIAL SQ SCH ×4 (06:27→22:47)
[2016-10-19] MEDS ORDERED: INSULIN (NOVOLOG) ASPART 100 UNITS/ML 10ML VIAL ONE ×4 (06:38→22:47)
[2016-10-19 07:53] LABS: BASOPHIL 0.5 % (0-2.0); EOSINOPHIL 3.1 % (0-4.5); MCH 24.8 pg (25.7-33.7); MCHC 31.6 g/dl (32.0-35.9); MEAN CELL VOLUME 78.4 fl (80-96); MEAN PLT VOLUME 10.5 fl (7.5-11.1); NEUTROPHILS 65.7 % (42.8-82.8); PLATELET COUNT 147 K/MM3 (134-434); RDW 17.7 % (11.9-15.9); WHITE BLOOD COUNT 7.6 K/mm3 (4.0-10.0)
[2016-10-19 08:25] LABS: CALCIUM 8.6 mg/dL (8.5-10.1); COCKROFT - GAULT 57.63; CREATININE 1.3 mg/dL (0.7-1.3)
--- NOTE | 2016-10-19 10:01 | PN ---
TING [place] Note Chief Complaint: with mod hydro. needs lull and jj in am. npo p mn - Objective Vital Signs: Vital Signs Temperature 98.2 F 10/19/16 08:57 Pulse Rate 79 10/19/16 08:57 Respiratory Rate 18 10/19/16 09:57 Blood Pressure 147/89 10/19/16 08:57 O2 Sat by Pulse Oximetry (%) 96 10/19/16 09:57 Labs/Additional Data: CBC, BMP 10/19/16 06:15 10/19/16 06:15 INR, PTT INR 1.01 (0.82-1.09) 10/14/16 19:33
[2016-10-19] MEDS: RANITIDINE HCL 150 MG TABLET (FP) PO SCH (10:02)
[2016-10-19] MEDS: amLODIPine BESYLATE 10 MG TABLET (FP) PO SCH (10:02)
[2016-10-19] MEDS: TAMSULOSIN HCL 0.4 MG CAP.ER.24H (FP) PO SCH (10:02)
[2016-10-19] MEDS: METOPROLOL TARTRATE 50 MG TABLET (FP) PO SCH ×2 (10:02→22:49)
[2016-10-19] MEDS: FERROUS SO4 325 MG TABLET (FP) PO SCH ×2 (10:03→22:49)
[2016-10-19] MEDS: ERTAPENEM SODIUM 1 GM in SODIUM CHLORIDE 50 ML IVPB SCH (10:03)
--- NOTE | 2016-10-19 11:28 | PN ---
Physical Exam: SUBJECTIVE: Patient seen and examined. He still has Left sided abd pain when he takes a deep breath. He noted a small amount of blood in his urine yesterday Events: - Preciado pulled yesterday, pt voiding freely OBJECTIVE: Vital Signs Period Temp Pulse Resp BP Sys/Grissom Pulse Ox Last 24 Hr 97.7 F-98.2 F 54-96 18-19 132-147/74-89 96 PE Neuro: alert, awake, cn 2-12intact Pulm: CTAB CV: s1 s2 rrr no mrg Abd: LUQ tenderness with deep breath, abd soft, no distended Ext: warm, no le edema Laboratory Results - last 24 hr 10/19/16 10/19/16 06:15 06:15 WBC 7.6 RBC 4.01 Hgb 9.9 L Hct 31.4 L MCV 78.4 L MCHC 31.6 L RDW 17.7 H Plt Count 147 MPV 10.5 Neutrophils % 65.7 D Lymphocytes % 19.9 D Monocytes % 10.8 H D Eosinophils % 3.1 D Basophils % 0.5 Sodium 141 Potassium 4.2 Chloride 108 H Carbon Dioxide 23 Anion Gap 10 BUN 20 H Creatinine 1.3 POC Glucometer Random Glucose 161 H Calcium 8.6 Active Medications Generic Name Dose Route Start Last Admin Trade Name Taiwoq PRN Reason Stop Dose Admin Acetaminophen 650 mg 10/15/16 10:11 10/17/16 15:14 Tylenol - PO 650 mg Q4H PRN Administration FEVER OR PAIN Al Hydroxide/Mg Hydroxide 30 ml 10/15/16 16:58 Mylanta Oral Suspension - PO Q6H PRN DYSPEPSIA Amlodipine Besylate 10 mg 10/15/16 10:00 10/19/16 10:02 Norvasc - PO 10 mg DAILY [facility] Administration Atorvastatin Calcium 40 mg 10/15/16 22:00 10/18/16 22:09 Lipitor - PO 40 mg HS [facility] Administration Ferrous Sulfate 325 mg 10/15/16 10:00 10/19/16 10:03 Feosol - PO 325 mg BID [facility] Administration Gabapentin 300 mg 10/15/16 22:00 10/18/16 22:09 Neurontin - PO 300 mg HS [facility] Administration Heparin Sodium (Porcine) 5,000 unit 10/15/16 14:00 10/19/16 06:26 Heparin - SQ 5,000 unit TID [facility] Administration Ertapenem 1 gm/ Sodium 50 mls @ 100 mls/hr 10/16/16 10:00 10/19/16 10:03 Chloride IVPB 100 mls/hr DAILY [facility] Administration Protocol Sodium Chloride 1,000 mls @ 75 mls/hr 10/15/16 17:15 10/18/16 17:14 Normal Saline - IV Not Given ASDIR [facility]SEY Insulin Aspart 1 vial 10/18/16 13:07 10/19/16 06:27 Novolog Vial Sliding Scale - SQ 4 units ACHS [facility] Administration Protocol Insulin Detemir 20 units 10/18/16 13:07 10/19/16 06:26 Levemir Vial SQ 20 units BIDAC [facility] Administration Metoprolol Tartrate 50 mg 10/15/16 10:00 10/19/16 10:02 Lopressor - PO 50 mg BID [facility] Administration Ranitidine HCl 150 mg 10/19/16 10:00 10/19/16 10:02 Zantac - PO 150 mg DAILY [facility] Administration Tamsulosin HCl 0.4 mg 10/15/16 08:30 10/19/16 10:02 Flomax - PO 0.4 mg DAILY@0830 [facility] Administration Microbiology 10/16/16 10:40 Blood Culture - Preliminary Blood - Peripheral Venous NO GROWTH OBTAINED AFTER 72 HOURS, INCUBATION TO CONTINUE FOR 2 DAYS. 10/16/16 10:20 Blood Culture - Preliminary Blood - Peripheral Venous NO GROWTH OBTAINED AFTER 72 HOURS, INCUBATION TO CONTINUE FOR 2 DAYS. 10/14/16 19:53 Blood Culture - Final Blood - Peripheral Venous Escherichia Coli Esbl Senior Web Applications Developer Imaging: - Renal ultrasound 10/14 with moderate to marked left renal hydronephrosis that has worsened since prior exam on 01/18/16 Assessment: 66 year old male with PMHx of ESBL UTI, HTN, [place] x2 (s/p cardiac stents), CAD, hyperlipidemia, DMII, neprholithiasis, TURP, left kidney stent placement, prostate cancer admitted s/p stent removal on 10/12 with fever, chills , and left flank pain. Plan: 1. 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 Coli UTI - Leukocytosis resolved - Ertapenem day 5 2. Left hydronephrosis, chronic - r/o mechanical obstruction vs adynamic obstruction - Diuretic nuclear renal scan today - For urological procedure tomorrow, jj stent - NPO after midnight 3. MARY - Cr improved - Continue gentle fluids - Continue to hold HCTZ/protonix 3. CAD s/p stents - Hold ASA for procedure tomorrow - Continue Lipitor - Continue Lopressor 5. HTN - Continue Norvasc 6. DM II - Sugars improved - Levemir 20u sq bid - Continue increased ISS - BGM ACHS 7. Prostate cancer s/p TURP - Continue Flomax 8. Prophylaxis - Heparin 5,000u sq tid - OOB ambulating Visit type - Emergency Visit Emergency Visit: Yes ED Registration Date: 10/14/16 Care time: The patient presented to the Emergency Department on the above date and was hospitalized for further evaluation of their emergent condition. - New Patient This patient is new to me today: No - Critical Care Critical Care patient: No
[2016-10-19] MEDS: SODIUM CHLORIDE 1,000 ML IV SCH (17:19)
--- NOTE | 2016-10-19 19:34 | PN ---
Progress Note, Physician History of Present Illness: patient feeling better says pain only while coughing still in the flank - Current Medication List Current Medications: Active Medications Acetaminophen (Tylenol -) 650 mg PO Q4H PRN PRN Reason: FEVER OR PAIN Last Admin: 10/17/16 15:14 Dose: 650 mg Al Hydroxide/Mg Hydroxide (Mylanta Oral Suspension -) 30 ml PO Q6H PRN PRN Reason: DYSPEPSIA Amlodipine Besylate (Norvasc -) 10 mg PO DAILY [facility] Last Admin: 10/19/16 10:02 Dose: 10 mg Atorvastatin Calcium (Lipitor -) 40 mg PO HS [facility] Last Admin: 10/18/16 22:09 Dose: 40 mg Ferrous Sulfate (Feosol -) 325 mg PO BID [facility] Last Admin: 10/19/16 10:03 Dose: 325 mg Gabapentin (Neurontin -) 300 mg PO HS [facility] Last Admin: 10/18/16 22:09 Dose: 300 mg Heparin Sodium (Porcine) (Heparin -) 5,000 unit SQ TID [facility] Last Admin: 10/19/16 13:17 Dose: 5,000 unit Ertapenem 1 gm/ Sodium (Chloride) 50 mls @ 100 mls/hr IVPB DAILY [facility] PRN Reason: Protocol Last Admin: 10/19/16 10:03 Dose: 100 mls/hr Sodium Chloride (Normal Saline -) 1,000 mls @ 75 mls/hr IV ASDIR [facility] Last Admin: 10/19/16 17:19 Dose: 75 mls/hr Insulin Aspart (Novolog Vial Sliding Scale -) 1 vial SQ ACHS [facility] PRN Reason: Protocol Last Admin: 10/19/16 17:17 Dose: 6 units Insulin Detemir (Levemir Vial) 20 units SQ BIDAC [facility] Last Admin: 10/19/16 17:17 Dose: 20 units Metoprolol Tartrate (Lopressor -) 50 mg PO BID [facility] Last Admin: 10/19/16 10:02 Dose: 50 mg Ranitidine HCl (Zantac -) 150 mg PO DAILY [facility] Last Admin: 10/19/16 10:02 Dose: 150 mg Tamsulosin HCl (Flomax -) 0.4 mg PO DAILY@0830 [facility] Last Admin: 10/19/16 10:02 Dose: 0.4 mg - Objective Vital Signs: Vital Signs Temperature 98.5 F 10/19/16 14:00 Pulse Rate 67 10/19/16 14:00 Respiratory Rate 20 10/19/16 14:00 Blood Pressure 147/89 10/19/16 08:57 O2 Sat by Pulse Oximetry (%) 96 10/19/16 09:57 Constitutional: Yes: No Distress, Calm Cardiovascular: Yes: Regular Rate and Rhythm Respiratory: Yes: Regular, CTA Bilaterally Gastrointestinal: Yes: Normal Bowel Sounds, Soft Genitourinary: Yes: Preciado Present Musculoskeletal: Yes: WNL Extremities: Yes: WNL Neurological: Yes: Alert, Oriented Psychiatric: Yes: Alert, Oriented Labs: CBC, BMP 10/19/16 06:15 10/19/16 06:15 INR, PTT INR 1.01 (0.82-1.09) 10/14/16 19:33 Assessment/Plan 66 yr old man with recent ureteral stent removal presents with intractable left flank pain found to have worsening of hydronephrosis. #UTI/ sepsis #Hydronephrosis #MARY - #DM II #HTN #Anemia - cva plan continue abx ecoli esbl uti 'gm negative bacteremia hydration urology plan noted
[2016-10-19] MEDS: GABAPENTIN 300 MG CAPSULE (FP) PO SCH (22:49)
[2016-10-19] MEDS: ATORVASTATIN CA 40 MG TABLET (FP) PO SCH (22:50)
[2016-10-20] MEDS: HEPARIN NA (PORCINE) 5,000 UNITS/ML 1ML VIAL SQ SCH ×3 (06:00→21:45)
[2016-10-20] MEDS: SODIUM CHLORIDE 1,000 ML IV SCH ×2 (06:38→18:24)
[2016-10-20] MEDS ORDERED: INSULIN (NOVOLOG) ASPART 100 UNITS/ML 10ML VIAL ONE ×2 (06:53→21:43)
[2016-10-20] MEDS: INSULIN SLIDING SCALE (NOVOLOG) 1 VIAL SQ SCH ×4 (06:53→21:46)
[2016-10-20] MEDS: INSULIN DETEMIR 100 UNITS/ML MDV SQ SCH ×2 (06:58→16:48)
[2016-10-20] MEDS: TAMSULOSIN HCL 0.4 MG CAP.ER.24H (FP) PO SCH (08:31)
[2016-10-20] MEDS: METOPROLOL TARTRATE 50 MG TABLET (FP) PO SCH ×2 (09:49→21:45)
[2016-10-20] MEDS: amLODIPine BESYLATE 10 MG TABLET (FP) PO SCH (09:49)
[2016-10-20] MEDS: FERROUS SO4 325 MG TABLET (FP) PO SCH ×2 (09:49→21:46)
[2016-10-20] MEDS: RANITIDINE HCL 150 MG TABLET (FP) PO SCH (09:49)
[2016-10-20] MEDS: ERTAPENEM SODIUM 1 GM in SODIUM CHLORIDE 50 ML IVPB SCH (09:49)
--- NOTE | 2016-10-20 11:44 | PN ---
Progress Note, Physician History of Present Illness: stable pain with cough still present - Current Medication List Current Medications: Active Medications Acetaminophen (Tylenol -) 650 mg PO Q4H PRN PRN Reason: FEVER OR PAIN Last Admin: 10/17/16 15:14 Dose: 650 mg Al Hydroxide/Mg Hydroxide (Mylanta Oral Suspension -) 30 ml PO Q6H PRN PRN Reason: DYSPEPSIA Amlodipine Besylate (Norvasc -) 10 mg PO DAILY [facility] Last Admin: 10/20/16 09:49 Dose: 10 mg Atorvastatin Calcium (Lipitor -) 40 mg PO HS [facility] Last Admin: 10/19/16 22:50 Dose: 40 mg Ferrous Sulfate (Feosol -) 325 mg PO BID [facility] Last Admin: 10/20/16 09:49 Dose: 325 mg Gabapentin (Neurontin -) 300 mg PO HS [facility] Last Admin: 10/19/16 22:49 Dose: 300 mg Heparin Sodium (Porcine) (Heparin -) 5,000 unit SQ TID [facility] Last Admin: 10/20/16 06:00 Dose: Not Given Ertapenem 1 gm/ Sodium (Chloride) 50 mls @ 100 mls/hr IVPB DAILY [facility] PRN Reason: Protocol Last Admin: 10/20/16 09:49 Dose: 100 mls/hr Sodium Chloride (Normal Saline -) 1,000 mls @ 75 mls/hr IV ASDIR [facility] Last Admin: 10/20/16 06:38 Dose: 75 mls/hr Insulin Aspart (Novolog Vial Sliding Scale -) 1 vial SQ ACHS [facility] PRN Reason: Protocol Last Admin: 10/20/16 06:53 Dose: 6 units Insulin Detemir (Levemir Vial) 20 units SQ BIDAC [facility] Last Admin: 10/20/16 06:58 Dose: Not Given Metoprolol Tartrate (Lopressor -) 50 mg PO BID [facility] Last Admin: 10/20/16 09:49 Dose: 50 mg Ranitidine HCl (Zantac -) 150 mg PO DAILY [facility] Last Admin: 10/20/16 09:49 Dose: 150 mg Tamsulosin HCl (Flomax -) 0.4 mg PO DAILY@0830 [facility] Last Admin: 10/20/16 08:31 Dose: 0.4 mg - Objective Vital Signs: Vital Signs Temperature 98.9 F 10/20/16 06:17 Pulse Rate 70 10/20/16 06:17 Respiratory Rate 20 10/20/16 06:17 Blood Pressure 129/72 10/20/16 06:17 O2 Sat by Pulse Oximetry (%) 96 10/19/16 22:00 Constitutional: Yes: Calm, Mild Distress Cardiovascular: Yes: Regular Rate and Rhythm Respiratory: Yes: Regular, CTA Bilaterally Gastrointestinal: Yes: Normal Bowel Sounds, Soft Genitourinary: Yes: Preciado Present Musculoskeletal: Yes: WNL Extremities: Yes: WNL Neurological: Yes: Alert, Oriented Psychiatric: Yes: Alert, Oriented Labs: CBC, BMP 10/19/16 06:15 10/19/16 06:15 INR, PTT INR 1.01 (0.82-1.09) 10/14/16 19:33 Assessment/Plan 66 yr old man with recent ureteral stent removal presents with intractable left flank pain found to have worsening of hydronephrosis. #UTI/ sepsis #Hydronephrosis #MARY - #DM II #HTN #Anemia - cva plan continue abx ecoli esbl uti 'gm negative bacteremia hydration plan for probably stent today
[2016-10-20] MEDS ORDERED: PROPOFOL 20 ML ONE (15:34)
[2016-10-20] MEDS ORDERED: MIDAZOLAM HCL 2 MG/2 ML SINGLE DOSE VIAL ONE (15:35)
[2016-10-20] MEDS ORDERED: ceFAZolin SODIUM 1 GM VIAL ONE (16:10)
[2016-10-20] MEDS ORDERED: ceFAZolin SODIUM 1 GM VIAL IVPB ONE (16:11)
--- NOTE | 2016-10-20 16:38 | PN ---
Physical Exam: SUBJECTIVE: Patient seen and examined. He has left side pain, but is ambulating in his room w/o difficulty. He is going for procedure today. Son at bedside. OBJECTIVE: Vital Signs Period Temp Pulse Resp BP Sys/Grissom Pulse Ox Last 24 Hr 98.2 F-98.9 F 68-95 16-20 125-144/72-90 96 PE Neuro: alert, awake, cn 2-12intact Pulm: CTAB CV: s1 s2 rrr no mrg Abd: LUQ tenderness with deep breath, abd soft, no distended Ext: warm, no le edema Laboratory Results - last 24 hr 10/19/16 10/19/16 10/20/16 16:02 22:42 06:45 POC Glucometer 201 183 209 10/20/16 11:44 POC Glucometer 156 Active Medications Generic Name Dose Route Start Last Admin Trade Name Freq PRN Reason Stop Dose Admin Acetaminophen 650 mg 10/15/16 10:11 10/17/16 15:14 Tylenol - PO 650 mg Q4H PRN Administration FEVER OR PAIN Al Hydroxide/Mg Hydroxide 30 ml 10/15/16 16:58 Mylanta Oral Suspension - PO Q6H PRN DYSPEPSIA Amlodipine Besylate 10 mg 10/15/16 10:00 10/20/16 09:49 Norvasc - PO 10 mg DAILY [facility] Administration Atorvastatin Calcium 40 mg 10/15/16 22:00 10/19/16 22:50 Lipitor - PO 40 mg HS [facility] Administration Ferrous Sulfate 325 mg 10/15/16 10:00 10/20/16 09:49 Feosol - PO 325 mg BID [facility] Administration Gabapentin 300 mg 10/15/16 22:00 10/19/16 22:49 Neurontin - PO 300 mg HS [facility] Administration Heparin Sodium (Porcine) 5,000 unit 10/15/16 14:00 10/20/16 13:47 Heparin - SQ Not Given TID [facility] Ertapenem 1 gm/ Sodium 50 mls @ 100 mls/hr 10/16/16 10:00 10/20/16 09:49 Chloride IVPB 100 mls/hr DAILY [facility] Administration Protocol Sodium Chloride 1,000 mls @ 75 mls/hr 10/15/16 17:15 10/20/16 06:38 Normal Saline - IV 75 mls/hr ASDIR [facility] Administration Insulin Aspart 1 vial 10/18/16 13:07 10/20/16 11:45 Novolog Vial Sliding Scale - SQ Not Given ACHS [facility] Protocol Insulin Detemir 20 units 10/18/16 13:07 10/20/16 06:58 Levemir Vial SQ Not Given BIDAC [facility] Metoprolol Tartrate 50 mg 10/15/16 10:00 10/20/16 09:49 Lopressor - PO 50 mg BID [facility] Administration Ranitidine HCl 150 mg 10/19/16 10:00 10/20/16 09:49 Zantac - PO 150 mg DAILY [facility] Administration Tamsulosin HCl 0.4 mg 10/15/16 08:30 10/20/16 08:31 Flomax - PO 0.4 mg DAILY@0830 [facility] Administration Imaging: - Renal ultrasound 10/14 with moderate to marked left renal hydronephrosis that has worsened since prior exam on 01/18/16 Assessment: 66 year old male with PMHx of ESBL UTI, HTN, [place] x2 (s/p cardiac stents), CAD, hyperlipidemia, DMII, neprholithiasis, TURP, left kidney stent placement, prostate cancer admitted s/p stent removal on 10/12 with fever, chills , and left flank pain. Plan: 1. 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 Coli UTI - Ertapenem day 6 2. Left hydronephrosis, chronic - r/o mechanical obstruction vs adynamic obstruction - Renal scan noted - For urological procedure today, jj stent 3. MARY - Cr improved - Continue gentle fluids - Continue to hold HCTZ/protonix 4. CAD s/p stents - Hold ASA for procedure tomorrow - Continue Lipitor - Continue Lopressor 5. HTN - Continue Norvasc 6. DM II - Levemir 20u sq bid - Continue increased ISS - BGM ACHS 7. Prostate cancer s/p TURP - Continue Flomax 8. Prophylaxis - Heparin 5,000u sq tid - OOB ambulating Visit type - Emergency Visit Emergency Visit: Yes ED Registration Date: 10/14/16 Care time: The patient presented to the Emergency Department on the above date and was hospitalized for further evaluation of their emergent condition. - New Patient This patient is new to me today: No - Critical Care Critical Care patient: No
--- NOTE | 2016-10-20 16:40 | OP ---
Operative Note - Note: Operative Date: 10/20/16 Pre-Operative Diagnosis: Left Hydronephrosis Operation: Cysto retro attempted ureteroscopy and stenting Findings: Left hydronephrosis
[2016-10-20] MEDS ORDERED: MAG HYDROX/AL HYDROX/SIMETH 30 ML UNIT-DOSE CUP PO PRN (16:55)
[2016-10-20] MEDS ORDERED: ACETAMINOPHEN 325 MG TABLET (FP) PO PRN (16:55)
[2016-10-20] MEDS: GABAPENTIN 300 MG CAPSULE (FP) PO SCH (21:45)
[2016-10-20] MEDS: ATORVASTATIN CA 40 MG TABLET (FP) PO SCH (21:46)
[2016-10-21 02:04] LABS: URINE APPEARANCE CLEAR; URINE BILIRUBIN NEGATIVE (NEGATIVE); URINE COLOR COLORLESS; URINE GLUCOSE (UA) 2+ (NEGATIVE); URINE KETONE NEGATIVE (NEGATIVE); URINE NITRITE NEGATIVE (NEGATIVE); URINE UROBILINOGEN NEGATIVE E.U./dl (0.2-1.0)
[2016-10-21 02:08] LABS: URINE BLOOD 3+ (NEGATIVE); URINE LEUK ESTERASE 2+ (NEGATIVE); URINE PROTEIN 1+ (NEGATIVE)
[2016-10-21 02:10] LABS: URINE BACTERIA FEW /hpf (NONE SEEN); URINE RBC 80 /hpf (0-3); URINE WBC 48 /hpf (3-5)
[2016-10-21] MEDS: HEPARIN NA (PORCINE) 5,000 UNITS/ML 1ML VIAL SQ SCH ×3 (06:00→21:12)
[2016-10-21] MEDS: SODIUM CHLORIDE 1,000 ML IV SCH (06:00)
[2016-10-21] MEDS: INSULIN DETEMIR 100 UNITS/ML MDV SQ SCH ×2 (06:47→17:00)
[2016-10-21] MEDS: INSULIN SLIDING SCALE (NOVOLOG) 1 VIAL SQ SCH ×4 (06:48→21:12)
[2016-10-21 08:00] LABS: BASOPHIL 1.3 % (0-2.0); EOSINOPHIL 2.7 % (0-4.5); MCH 24.7 pg (25.7-33.7); MCHC 31.4 g/dl (32.0-35.9); MEAN CELL VOLUME 78.9 fl (80-96); MEAN PLT VOLUME 10.2 fl (7.5-11.1); NEUTROPHILS 58.9 % (42.8-82.8); PLATELET COUNT 192 K/MM3 (134-434); RDW 17.8 % (11.9-15.9); WHITE BLOOD COUNT 6.3 K/mm3 (4.0-10.0)
[2016-10-21] MEDS: TAMSULOSIN HCL 0.4 MG CAP.ER.24H (FP) PO SCH (08:03)
[2016-10-21 08:42] LABS: CALCIUM 9.2 mg/dL (8.5-10.1); COCKROFT - GAULT 62.44; CREATININE 1.2 mg/dL (0.7-1.3)
--- NOTE | 2016-10-21 08:45 | PN ---
Progress Note, Physician Chief Complaint: Pt. ambulating and voiding, pain controlled, no anesthesia complaints. - Current Medication List Current Medications: Active Medications Acetaminophen (Tylenol -) 650 mg PO Q4H PRN PRN Reason: FEVER OR PAIN Al Hydroxide/Mg Hydroxide (Mylanta Oral Suspension -) 30 ml PO Q6H PRN PRN Reason: DYSPEPSIA Amlodipine Besylate (Norvasc -) 10 mg PO DAILY [facility] Atorvastatin Calcium (Lipitor -) 40 mg PO HS [facility] Last Admin: 10/20/16 21:46 Dose: 40 mg Ferrous Sulfate (Feosol -) 325 mg PO BID [facility] Last Admin: 10/20/16 21:46 Dose: 325 mg Gabapentin (Neurontin -) 300 mg PO HS [facility] Last Admin: 10/20/16 21:45 Dose: 300 mg Heparin Sodium (Porcine) (Heparin -) 5,000 unit SQ TID [facility] Last Admin: 10/21/16 06:00 Dose: 5,000 unit Ertapenem 1 gm/ Sodium (Chloride) 50 mls @ 100 mls/hr IVPB DAILY [facility] PRN Reason: Protocol Sodium Chloride (Normal Saline -) 1,000 mls @ 75 mls/hr IV ASDIR [facility] Last Admin: 10/21/16 06:00 Dose: 75 mls/hr Insulin Aspart (Novolog Vial Sliding Scale -) 1 vial SQ ACHS [facility] PRN Reason: Protocol Last Admin: 10/21/16 06:48 Dose: 6 units Insulin Detemir (Levemir Vial) 20 units SQ BIDAC [facility] Last Admin: 10/21/16 06:47 Dose: 20 units Metoprolol Tartrate (Lopressor -) 50 mg PO BID [facility] Last Admin: 10/20/16 21:45 Dose: 50 mg Ranitidine HCl (Zantac -) 150 mg PO DAILY [facility] Tamsulosin HCl (Flomax -) 0.4 mg PO DAILY@0830 [facility] Last Admin: 10/21/16 08:03 Dose: 0.4 mg - Objective Vital Signs: Vital Signs Temperature 98.3 F 10/21/16 06:00 Pulse Rate 80 10/21/16 06:00 Respiratory Rate 20 10/21/16 06:00 Blood Pressure 135/79 10/21/16 06:00 O2 Sat by Pulse Oximetry (%) 100 10/20/16 21:00 Constitutional: Yes: Well Nourished, No Distress, Calm Musculoskeletal: Yes: WNL Neurological: Yes: WNL, Alert, Oriented ...Motor Strength: WNL Labs: CBC, BMP 10/21/16 07:05 10/21/16 07:05 INR, PTT INR 1.01 (0.82-1.09) 10/14/16 19:33 Assessment/Plan POD#1 s/p cyctoscopy with attempted ureteroscopy under spinal. D/C from anesthesia care.
[2016-10-21] MEDS ORDERED: PT OWN MED DRAWER 7, Y5N ONE (10:54)
[2016-10-21] MEDS: RANITIDINE HCL 150 MG TABLET (FP) PO SCH (10:59)
[2016-10-21] MEDS: METOPROLOL TARTRATE 50 MG TABLET (FP) PO SCH ×2 (10:59→21:12)
[2016-10-21] MEDS: FERROUS SO4 325 MG TABLET (FP) PO SCH ×2 (10:59→21:12)
[2016-10-21] MEDS: amLODIPine BESYLATE 10 MG TABLET (FP) PO SCH (10:59)
[2016-10-21] MEDS: ERTAPENEM SODIUM 1 GM in SODIUM CHLORIDE 50 ML IVPB SCH (11:00)
[2016-10-21] MEDS ORDERED: INSULIN (NOVOLOG) ASPART 100 UNITS/ML 10ML VIAL ONE ×3 (11:22→21:09)
--- NOTE | 2016-10-21 11:33 | PN ---
Progress Note (short form) - Note Progress Note: Subjective: The patient was seen and examined at the bedside, he has no complaints at this time. Daughters at bedside S/p "attempted ureteroscopy and stenting" Current Medications Generic Name Dose Route Start Last Admin Trade Name Freq PRN Reason Stop Dose Admin Acetaminophen 650 mg 10/20/16 16:55 Tylenol - PO Q4H PRN FEVER OR PAIN Al Hydroxide/Mg Hydroxide 30 ml 10/20/16 16:55 Mylanta Oral Suspension - PO Q6H PRN DYSPEPSIA Amlodipine Besylate 10 mg 10/21/16 10:00 10/21/16 10:59 Norvasc - PO 10 mg DAILY [facility] Administration Atorvastatin Calcium 40 mg 10/20/16 22:00 10/20/16 21:46 Lipitor - PO 40 mg HS [facility] Administration Ferrous Sulfate 325 mg 10/20/16 22:00 10/21/16 10:59 Feosol - PO 325 mg BID [facility] Administration Gabapentin 300 mg 10/20/16 22:00 10/20/16 21:45 Neurontin - PO 300 mg HS [facility] Administration Heparin Sodium (Porcine) 5,000 unit 10/20/16 22:00 10/21/16 06:00 Heparin - SQ 5,000 unit TID [facility] Administration Ertapenem 1 gm/ Sodium 50 mls @ 100 mls/hr 10/21/16 10:00 10/21/16 11:00 Chloride IVPB 100 mls/hr DAILY [facility] Administration Protocol Sodium Chloride 1,000 mls @ 75 mls/hr 10/20/16 16:55 10/21/16 06:00 Normal Saline - IV 75 mls/hr ASDIR [facility] Administration Insulin Aspart 1 vial 10/20/16 22:00 10/21/16 06:48 Novolog Vial Sliding Scale - SQ 6 units ACHS [facility] Administration Protocol Insulin Detemir 20 units 10/21/16 07:00 10/21/16 06:47 Levemir Vial SQ 20 units BIDAC [facility] Administration Metoprolol Tartrate 50 mg 10/20/16 22:00 10/21/16 10:59 Lopressor - PO 50 mg BID [facility] Administration Ranitidine HCl 150 mg 10/21/16 10:00 10/21/16 10:59 Zantac - PO 150 mg DAILY [facility] Administration Tamsulosin HCl 0.4 mg 10/21/16 08:30 10/21/16 08:03 Flomax - PO 0.4 mg DAILY@0830 [facility] Administration Objective: Vital Signs Period Temp Pulse Resp BP Sys/Grissom Pulse Ox Last 24 Hr 97.3 F-98.3 F 56-87 16-20 125-148/70-85 100-100 Physical Exam: General: NAD, A&Ox3 Lungs: CTA bilaterally Heart: RRR, S1S2 Abd: Soft, non-tender, non-distended. Normoactive bowel sounds Ext: Warm, well-perfused. 2+ DP/PT bilaterally Neuro: CN 2-12 intact CBCD WBC 6.3 K/mm3 (4.0-10.0) 10/21/16 07:05 RBC 4.32 M/mm3 (4.00-5.60) 10/21/16 07:05 Hgb 10.7 GM/dL (11.7-16.9) L 10/21/16 07:05 Hct 34.1 % (35.4-49) L 10/21/16 07:05 MCV 78.9 fl (80-96) L 10/21/16 07:05 MCHC 31.4 g/dl (32.0-35.9) L 10/21/16 07:05 RDW 17.8 % (11.9-15.9) H 10/21/16 07:05 Plt Count 192 K/MM3 (134-434) D 10/21/16 07:05 MPV 10.2 fl (7.5-11.1) 10/21/16 07:05 CMP Sodium 138 mmol/L (136-145) 10/21/16 07:05 Potassium 4.1 mmol/L (3.5-5.1) 10/21/16 07:05 Chloride 104 mmol/L (98-107) 10/21/16 07:05 Carbon Dioxide 23 mmol/L (21-32) 10/21/16 07:05 Anion Gap 11 (8-16) 10/21/16 07:05 BUN 18 mg/dL (7-18) 10/21/16 07:05 Creatinine 1.2 mg/dL (0.7-1.3) 10/21/16 07:05 Creat Clearance w eGFR 46.54 (>60) 10/18/16 06:15 Random Glucose 191 mg/dL (74-106) H 10/21/16 07:05 Calcium 9.2 mg/dL (8.5-10.1) 10/21/16 07:05 Total Bilirubin 0.3 mg/dL (0.2-1.0) D 10/18/16 06:15 AST 55 U/L (15-37) H D 10/18/16 06:15 ALT 93 U/L (12-78) H D 10/18/16 06:15 Alkaline Phosphatase 152 U/L (45-117) H D 10/18/16 06:15 Total Protein 7.4 g/dl (6.4-8.2) 10/18/16 06:15 Albumin 2.6 g/dl (3.4-5.0) L 10/18/16 06:15 CARDIAC ENZYMES Creatine Kinase 56 IU/L (39-308) 10/14/16 19:53 Troponin I < 0.02 ng/ml (0.00-0.05) 10/14/16 19:53 Microbiology 10/16/16 10:40 Blood - Peripheral Venous Blood Culture - Final NO GROWTH AFTER 5 DAYS INCUBATION 10/16/16 10:20 Blood - Peripheral Venous Blood Culture - Final NO GROWTH AFTER 5 DAYS INCUBATION 10/14/16 19:53 Blood - Peripheral Venous Blood Culture - Final Escherichia Coli Esbl [employer] Professional 10/14/16 19:42 Blood - Peripheral Venous Blood Culture - Final Escherichia Coli Esbl [employer] Professional 10/14/16 19:30 Urine - Urine Preciado Urine Culture - Final Escherichia Coli Esbl [employer] Professional Imaging - Renal ultrasound 10/14 with moderate to marked left renal hydronephrosis that has worsened since prior exam on 01/18/16 Assessment: This is a 66 year old male with PMHx of ESBL UTI, HTN, [place] x2 (s/p cardiac stents), CAD, hyperlipidemia, DMII, neprholithiasis, TURP, left kidney stent placement, prostate cancer who presented to the ED s/p stent removal (2 days ago) with fever, chills, and left flank pain. Plan: 1) ID: Sepsis 2/2 ESBL bacteremia and UTI - Continue Ertapenem (10/15- ) - Appreciate ID consult 2) : Left hydronephrosis, MARY - S/p S/p "attempted ureteroscopy and stenting" on 10/20, will need follow-up urology for further recommendations - Cr continues to trend down - F/u urology consult 3) Cardiology: CAD s/p stents - F/u urology recommendations for resuming ASA - Continue Lipitor - Continue Lopressor HTN - Continue Norvasc 4) Endocrine: DN - ISS ACHS - BGM ACHS - Continue Levemir 20u sq bid 5) Oncology: Prostate cancer s/p TURP - Continue Flomax 6) F/E/N: - Monitor electrolytes - Diabetic/sodium controlled diet 7) Prophylaxis: - Heparin 5,000u sq tid - OOB ambulating 8) Dispo: - Requires continued inpatient care - Awaiting further ID recommendations for IV abx duration - Will likely require discharge with PICC line and go to infusion center for daily abx (discussed with transition social worker, Molly) CODE STATUS: FULL CODE Visit type - Emergency Visit Emergency Visit: Yes ED Registration Date: 10/14/16 Care time: The patient presented to the Emergency Department on the above date and was hospitalized for further evaluation of their emergent condition. - New Patient This patient is new to me today: No - Critical Care Critical Care patient: No
[2016-10-21 13:35] LABS: HYPOCHROMIA 1+
--- NOTE | 2016-10-21 13:46 | PN ---
Progress Note, Physician History of Present Illness: patient improving attempted scenting - Current Medication List Current Medications: Active Medications Acetaminophen (Tylenol -) 650 mg PO Q4H PRN PRN Reason: FEVER OR PAIN Al Hydroxide/Mg Hydroxide (Mylanta Oral Suspension -) 30 ml PO Q6H PRN PRN Reason: DYSPEPSIA Amlodipine Besylate (Norvasc -) 10 mg PO DAILY [facility] Last Admin: 10/21/16 10:59 Dose: 10 mg Atorvastatin Calcium (Lipitor -) 40 mg PO HS [facility] Last Admin: 10/20/16 21:46 Dose: 40 mg Ferrous Sulfate (Feosol -) 325 mg PO BID [facility] Last Admin: 10/21/16 10:59 Dose: 325 mg Gabapentin (Neurontin -) 300 mg PO HS [facility] Last Admin: 10/20/16 21:45 Dose: 300 mg Heparin Sodium (Porcine) (Heparin -) 5,000 unit SQ TID [facility] Last Admin: 10/21/16 06:00 Dose: 5,000 unit Ertapenem 1 gm/ Sodium (Chloride) 50 mls @ 100 mls/hr IVPB DAILY [facility] PRN Reason: Protocol Last Admin: 10/21/16 11:00 Dose: 100 mls/hr Sodium Chloride (Normal Saline -) 1,000 mls @ 75 mls/hr IV ASDIR [facility] Last Admin: 10/21/16 06:00 Dose: 75 mls/hr Insulin Aspart (Novolog Vial Sliding Scale -) 1 vial SQ ACHS [facility] PRN Reason: Protocol Last Admin: 10/21/16 11:30 Dose: 6 units Insulin Detemir (Levemir Vial) 20 units SQ BIDAC [facility] Last Admin: 10/21/16 06:47 Dose: 20 units Metoprolol Tartrate (Lopressor -) 50 mg PO BID [facility] Last Admin: 10/21/16 10:59 Dose: 50 mg Ranitidine HCl (Zantac -) 150 mg PO DAILY [facility] Last Admin: 10/21/16 10:59 Dose: 150 mg Tamsulosin HCl (Flomax -) 0.4 mg PO DAILY@0830 [facility] Last Admin: 10/21/16 08:03 Dose: 0.4 mg - Objective Vital Signs: Vital Signs Temperature 98.7 F 10/21/16 13:39 Pulse Rate 68 10/21/16 13:39 Respiratory Rate 17 10/21/16 13:39 Blood Pressure 143/81 10/21/16 11:09 O2 Sat by Pulse Oximetry (%) 100 10/21/16 09:00 Constitutional: Yes: No Distress, Calm Cardiovascular: Yes: Regular Rate and Rhythm Respiratory: Yes: Regular, CTA Bilaterally Gastrointestinal: Yes: Normal Bowel Sounds, Soft Genitourinary: Yes: Preciado Present Neurological: Yes: Alert, Oriented Psychiatric: Yes: Alert, Oriented Labs: CBC, BMP 10/21/16 07:05 10/21/16 07:05 INR, PTT INR 1.01 (0.82-1.09) 10/14/16 19:33 Assessment/Plan 66 yr old man with recent ureteral stent removal presents with intractable left flank pain found to have worsening of hydronephrosis. #UTI/ sepsis #Hydronephrosis #MARY - #DM II #HTN #Anemia - cva plan continue abx ecoli esbl uti 'gm negative bacteremia hydration attempted stent retrograde i think if feasible and urology thinks it needed we should do percutaneous nephrostomy and then later try stenting
--- NOTE | 2016-10-21 14:04 | OP ---
DATE OF OPERATION: 10/20/2016 SURGEON: Nikolas Rivera MD ANESTHESIA: General. PREOPERATIVE DIAGNOSIS: Left hydronephrosis. POSTOPERATIVE DIAGNOSIS: Left hydronephrosis. PROCEDURE: Attempted retroureteroscopy. FINDINGS: Urethra normal. Bladder shows severe radiation cystitis. Both ureteral orifices appear to be in the right position but the left ureter could not be catheterized. Several attempts were made with the guidewire and an access catheter, and retrograde was attempted. There was extravasation of the dye. It was decided to abandon the procedure. The instruments were withdrawn. The patient tolerated the procedure well and left the operating room in a satisfactory condition. PLAN: Do a noncontrast CT scan and then maybe do a percutaneous nephrostomy on the left side. Omar BARAHONA/[id number]
[2016-10-21] MEDS: ATORVASTATIN CA 40 MG TABLET (FP) PO SCH (21:11)
[2016-10-21] MEDS: GABAPENTIN 300 MG CAPSULE (FP) PO SCH (21:11)
[2016-10-22] MEDS: HEPARIN NA (PORCINE) 5,000 UNITS/ML 1ML VIAL SQ SCH ×3 (06:01→21:54)
[2016-10-22] MEDS: SODIUM CHLORIDE 1,000 ML IV SCH (06:02)
[2016-10-22] MEDS: INSULIN SLIDING SCALE (NOVOLOG) 1 VIAL SQ SCH ×4 (06:44→21:54)
[2016-10-22] MEDS: INSULIN DETEMIR 100 UNITS/ML MDV SQ SCH ×2 (06:44→16:44)
[2016-10-22] MEDS: TAMSULOSIN HCL 0.4 MG CAP.ER.24H (FP) PO SCH (08:19)
[2016-10-22] MEDS ORDERED: PT OWN MED DRAWER 7, Y5N ONE (09:33)
[2016-10-22] MEDS: amLODIPine BESYLATE 10 MG TABLET (FP) PO SCH (09:37)
[2016-10-22] MEDS: METOPROLOL TARTRATE 50 MG TABLET (FP) PO SCH ×2 (09:37→21:55)
[2016-10-22] MEDS: FERROUS SO4 325 MG TABLET (FP) PO SCH ×2 (09:37→21:54)
[2016-10-22] MEDS: RANITIDINE HCL 150 MG TABLET (FP) PO SCH (09:38)
[2016-10-22] MEDS: ERTAPENEM SODIUM 1 GM in SODIUM CHLORIDE 50 ML IVPB SCH (09:39)
[2016-10-22] MEDS ORDERED: INSULIN (NOVOLOG) ASPART 100 UNITS/ML 10ML VIAL ONE ×2 (11:18→21:42)
--- NOTE | 2016-10-22 13:21 | PN ---
Progress Note (short form) - Note Progress Note: Subjective: The patient was seen and examined at the bedside, he has no complaints at this time. Daughters at bedside S/p "attempted ureteroscopy and stenting" Current Medications Generic Name Dose Route Start Last Admin Trade Name Freq PRN Reason Stop Dose Admin Acetaminophen 650 mg 10/20/16 16:55 Tylenol - PO Q4H PRN FEVER OR PAIN Al Hydroxide/Mg Hydroxide 30 ml 10/20/16 16:55 Mylanta Oral Suspension - PO Q6H PRN DYSPEPSIA Amlodipine Besylate 10 mg 10/21/16 10:00 10/21/16 10:59 Norvasc - PO 10 mg DAILY [facility] Administration Atorvastatin Calcium 40 mg 10/20/16 22:00 10/20/16 21:46 Lipitor - PO 40 mg HS [facility] Administration Ferrous Sulfate 325 mg 10/20/16 22:00 10/21/16 10:59 Feosol - PO 325 mg BID [facility] Administration Gabapentin 300 mg 10/20/16 22:00 10/20/16 21:45 Neurontin - PO 300 mg HS [facility] Administration Heparin Sodium (Porcine) 5,000 unit 10/20/16 22:00 10/21/16 06:00 Heparin - SQ 5,000 unit TID [facility] Administration Ertapenem 1 gm/ Sodium 50 mls @ 100 mls/hr 10/21/16 10:00 10/21/16 11:00 Chloride IVPB 100 mls/hr DAILY [facility] Administration Protocol Sodium Chloride 1,000 mls @ 75 mls/hr 10/20/16 16:55 10/21/16 06:00 Normal Saline - IV 75 mls/hr ASDIR [facility] Administration Insulin Aspart 1 vial 10/20/16 22:00 10/21/16 06:48 Novolog Vial Sliding Scale - SQ 6 units ACHS [facility] Administration Protocol Insulin Detemir 20 units 10/21/16 07:00 10/21/16 06:47 Levemir Vial SQ 20 units BIDAC [facility] Administration Metoprolol Tartrate 50 mg 10/20/16 22:00 10/21/16 10:59 Lopressor - PO 50 mg BID [facility] Administration Ranitidine HCl 150 mg 10/21/16 10:00 10/21/16 10:59 Zantac - PO 150 mg DAILY [facility] Administration Tamsulosin HCl 0.4 mg 10/21/16 08:30 10/21/16 08:03 Flomax - PO 0.4 mg DAILY@0830 [facility] Administration Objective: Vital Signs Period Temp Pulse Resp BP Sys/Grissom Pulse Ox Last 24 Hr 97.3 F-98.3 F 56-87 16-20 125-148/70-85 100-100 Physical Exam: General: NAD, A&Ox3 Lungs: CTA bilaterally Heart: RRR, S1S2 Abd: Soft, non-tender, non-distended. Normoactive bowel sounds Ext: Warm, well-perfused. 2+ DP/PT bilaterally Neuro: CN 2-12 intact CBCD WBC 6.3 K/mm3 (4.0-10.0) 10/21/16 07:05 RBC 4.32 M/mm3 (4.00-5.60) 10/21/16 07:05 Hgb 10.7 GM/dL (11.7-16.9) L 10/21/16 07:05 Hct 34.1 % (35.4-49) L 10/21/16 07:05 MCV 78.9 fl (80-96) L 10/21/16 07:05 MCHC 31.4 g/dl (32.0-35.9) L 10/21/16 07:05 RDW 17.8 % (11.9-15.9) H 10/21/16 07:05 Plt Count 192 K/MM3 (134-434) D 10/21/16 07:05 MPV 10.2 fl (7.5-11.1) 10/21/16 07:05 CMP Sodium 138 mmol/L (136-145) 10/21/16 07:05 Potassium 4.1 mmol/L (3.5-5.1) 10/21/16 07:05 Chloride 104 mmol/L (98-107) 10/21/16 07:05 Carbon Dioxide 23 mmol/L (21-32) 10/21/16 07:05 Anion Gap 11 (8-16) 10/21/16 07:05 BUN 18 mg/dL (7-18) 10/21/16 07:05 Creatinine 1.2 mg/dL (0.7-1.3) 10/21/16 07:05 Creat Clearance w eGFR 46.54 (>60) 10/18/16 06:15 Random Glucose 191 mg/dL (74-106) H 10/21/16 07:05 Calcium 9.2 mg/dL (8.5-10.1) 10/21/16 07:05 Total Bilirubin 0.3 mg/dL (0.2-1.0) D 10/18/16 06:15 AST 55 U/L (15-37) H D 10/18/16 06:15 ALT 93 U/L (12-78) H D 10/18/16 06:15 Alkaline Phosphatase 152 U/L (45-117) H D 10/18/16 06:15 Total Protein 7.4 g/dl (6.4-8.2) 10/18/16 06:15 Albumin 2.6 g/dl (3.4-5.0) L 10/18/16 06:15 CARDIAC ENZYMES Creatine Kinase 56 IU/L (39-308) 10/14/16 19:53 Troponin I < 0.02 ng/ml (0.00-0.05) 10/14/16 19:53 Microbiology 10/16/16 10:40 Blood - Peripheral Venous Blood Culture - Final NO GROWTH AFTER 5 DAYS INCUBATION 10/16/16 10:20 Blood - Peripheral Venous Blood Culture - Final NO GROWTH AFTER 5 DAYS INCUBATION 10/14/16 19:53 Blood - Peripheral Venous Blood Culture - Final Escherichia Coli Esbl Mechanical Operator 10/14/16 19:42 Blood - Peripheral Venous Blood Culture - Final Escherichia Coli Esbl Mechanical Operator 10/14/16 19:30 Urine - Urine Preciado Urine Culture - Final Escherichia Coli Esbl Mechanical Operator Imaging - Renal ultrasound 10/14 with moderate to marked left renal hydronephrosis that has worsened since prior exam on 01/18/16 Assessment: This is a 66 year old male with PMHx of ESBL UTI, HTN, [place] x2 (s/p cardiac stents), CAD, hyperlipidemia, DMII, neprholithiasis, TURP, left kidney stent placement, prostate cancer who presented to the ED s/p stent removal (2 days ago) with fever, chills, and left flank pain. Plan: 1) ID: Sepsis 2/2 ESBL bacteremia and UTI - Continue Ertapenem (10/15- ) - Appreciate ID consult 2) : Left hydronephrosis, MARY - S/p "attempted ureteroscopy and stenting" on 10/20, will need follow-up urology for further recommendations - CTAP with marked left hydronephrosis and hydroureter down to a small and irregular urinary bladder - Attempted to contact urology several times today and yesterday, awaiting call back for further recommendations - F/u urology consult 3) Cardiology: CAD s/p stents - F/u urology recommendations for resuming ASA - Continue Lipitor - Continue Lopressor HTN - Continue Norvasc 4) Endocrine: DN - ISS ACHS - BGM ACHS - Continue Levemir 20u sq bid 5) Oncology: Prostate cancer s/p TURP - Continue Flomax 6) F/E/N: - Monitor electrolytes - Diabetic/sodium controlled diet 7) Prophylaxis: - Heparin 5,000u sq tid - OOB ambulating 8) Dispo: - Requires continued inpatient care - Awaiting further ID recommendations for IV abx duration - Will likely require discharge with PICC line and go to infusion center for daily abx (discussed with social work program coordinator, Molly) CODE STATUS: FULL CODE Visit type - Emergency Visit Emergency Visit: Yes ED Registration Date: 10/14/16 Care time: The patient presented to the Emergency Department on the above date and was hospitalized for further evaluation of their emergent condition. - New Patient This patient is new to me today: No - Critical Care Critical Care patient: No
--- NOTE | 2016-10-22 14:48 | PN ---
Progress Note, Physician History of Present Illness: stable no plain now while coughing - Current Medication List Current Medications: Active Medications Acetaminophen (Tylenol -) 650 mg PO Q4H PRN PRN Reason: FEVER OR PAIN Last Admin: 10/21/16 17:08 Dose: 650 mg Al Hydroxide/Mg Hydroxide (Mylanta Oral Suspension -) 30 ml PO Q6H PRN PRN Reason: DYSPEPSIA Amlodipine Besylate (Norvasc -) 10 mg PO DAILY [facility] Last Admin: 10/22/16 09:37 Dose: 10 mg Atorvastatin Calcium (Lipitor -) 40 mg PO HS [facility] Last Admin: 10/21/16 21:11 Dose: 40 mg Ferrous Sulfate (Feosol -) 325 mg PO BID [facility] Last Admin: 10/22/16 09:37 Dose: 325 mg Gabapentin (Neurontin -) 300 mg PO HS [facility] Last Admin: 10/21/16 21:11 Dose: 300 mg Heparin Sodium (Porcine) (Heparin -) 5,000 unit SQ TID [facility] Last Admin: 10/22/16 06:01 Dose: 5,000 unit Ertapenem 1 gm/ Sodium (Chloride) 50 mls @ 100 mls/hr IVPB DAILY [facility] PRN Reason: Protocol Last Admin: 10/22/16 09:39 Dose: 100 mls/hr Sodium Chloride (Normal Saline -) 1,000 mls @ 75 mls/hr IV ASDIR [facility] Last Admin: 10/22/16 06:02 Dose: 75 mls/hr Insulin Aspart (Novolog Vial Sliding Scale -) 1 vial SQ ACHS [facility] PRN Reason: Protocol Last Admin: 10/22/16 11:21 Dose: 4 units Insulin Detemir (Levemir Vial) 20 units SQ BIDAC [facility] Last Admin: 10/22/16 06:44 Dose: 20 units Metoprolol Tartrate (Lopressor -) 50 mg PO BID [facility] Last Admin: 10/22/16 09:37 Dose: 50 mg Ranitidine HCl (Zantac -) 150 mg PO DAILY [facility] Last Admin: 10/22/16 09:38 Dose: 150 mg Tamsulosin HCl (Flomax -) 0.4 mg PO DAILY@0830 [facility] Last Admin: 10/22/16 08:19 Dose: 0.4 mg - Objective Vital Signs: Vital Signs Temperature 97.6 F 10/22/16 14:00 Pulse Rate 72 10/22/16 14:00 Respiratory Rate 20 10/22/16 14:00 Blood Pressure 145/87 10/22/16 08:19 O2 Sat by Pulse Oximetry (%) 100 10/22/16 09:00 Constitutional: Yes: No Distress, Calm Cardiovascular: Yes: Regular Rate and Rhythm Respiratory: Yes: Regular, CTA Bilaterally Gastrointestinal: Yes: Normal Bowel Sounds, Soft Genitourinary: Yes: Preciado Present Musculoskeletal: Yes: WNL Extremities: Yes: WNL Neurological: Yes: Alert, Oriented Psychiatric: Yes: Alert, Oriented Labs: CBC, BMP 10/21/16 07:05 10/21/16 07:05 INR, PTT INR 1.01 (0.82-1.09) 10/14/16 19:33 Assessment/Plan 66 yr old man with recent ureteral stent removal presents with intractable left flank pain found to have worsening of hydronephrosis. #UTI/ sepsis #Hydronephrosis #MARY - #DM II #HTN #Anemia - cva plan continue abx ecoli esbl uti 'gm negative bacteremia hydration finish the abx course
[2016-10-22] MEDS: ATORVASTATIN CA 40 MG TABLET (FP) PO SCH (21:54)
[2016-10-22] MEDS: GABAPENTIN 300 MG CAPSULE (FP) PO SCH (21:55)
[2016-10-23] MEDS: INSULIN DETEMIR 100 UNITS/ML MDV SQ SCH ×2 (06:20→17:16)
[2016-10-23] MEDS: INSULIN SLIDING SCALE (NOVOLOG) 1 VIAL SQ SCH ×4 (06:21→22:11)
[2016-10-23] MEDS: HEPARIN NA (PORCINE) 5,000 UNITS/ML 1ML VIAL SQ SCH ×3 (06:21→22:03)
[2016-10-23] MEDS: SODIUM CHLORIDE 1,000 ML IV SCH ×3 (06:24→21:48)
[2016-10-23] MEDS ORDERED: INSULIN (NOVOLOG) ASPART 100 UNITS/ML 10ML VIAL ONE ×4 (06:28→22:08)
[2016-10-23] MEDS: TAMSULOSIN HCL 0.4 MG CAP.ER.24H (FP) PO SCH (08:17)
[2016-10-23 08:58] LABS: CALCIUM 9.2 mg/dL (8.5-10.1); COCKROFT - GAULT 62.44; CREATININE 1.2 mg/dL (0.7-1.3)
[2016-10-23] MEDS: amLODIPine BESYLATE 10 MG TABLET (FP) PO SCH (09:11)
[2016-10-23] MEDS: FERROUS SO4 325 MG TABLET (FP) PO SCH ×2 (09:11→22:02)
[2016-10-23] MEDS: METOPROLOL TARTRATE 50 MG TABLET (FP) PO SCH ×2 (09:11→22:01)
[2016-10-23] MEDS: ERTAPENEM SODIUM 1 GM in SODIUM CHLORIDE 50 ML IVPB SCH (09:11)
[2016-10-23] MEDS: RANITIDINE HCL 150 MG TABLET (FP) PO SCH (09:11)
--- NOTE | 2016-10-23 12:01 | PN ---
Progress Note (short form) - Note Progress Note: [place] spanish interpreter/translator #[id number] Subjective: The patient was seen and examined at the bedside, he states he would like to go home. Informed patient of plan for nephrostomy and PICC line for IV abx through 10/29 Current Medications Generic Name Dose Route Start Last Admin Trade Name Freq PRN Reason Stop Dose Admin Acetaminophen 650 mg 10/20/16 16:55 10/21/16 17:08 Tylenol - PO 650 mg Q4H PRN Administration FEVER OR PAIN Al Hydroxide/Mg Hydroxide 30 ml 10/20/16 16:55 Mylanta Oral Suspension - PO Q6H PRN DYSPEPSIA Amlodipine Besylate 10 mg 10/21/16 10:00 10/23/16 09:11 Norvasc - PO 10 mg DAILY [facility] Administration Atorvastatin Calcium 40 mg 10/20/16 22:00 10/22/16 21:54 Lipitor - PO 40 mg HS [facility] Administration Ferrous Sulfate 325 mg 10/20/16 22:00 10/23/16 09:11 Feosol - PO 325 mg BID [facility] Administration Gabapentin 300 mg 10/20/16 22:00 10/22/16 21:55 Neurontin - PO 300 mg HS [facility] Administration Heparin Sodium (Porcine) 5,000 unit 10/20/16 22:00 10/23/16 06:21 Heparin - SQ 5,000 unit TID [facility] Administration Ertapenem 1 gm/ Sodium 50 mls @ 100 mls/hr 10/21/16 10:00 10/23/16 09:11 Chloride IVPB 100 mls/hr DAILY [facility] Administration Protocol Sodium Chloride 1,000 mls @ 75 mls/hr 10/20/16 16:55 10/23/16 06:24 Normal Saline - IV 75 mls/hr ASDIR [facility] Administration Insulin Aspart 1 vial 10/20/16 22:00 10/23/16 11:50 Novolog Vial Sliding Scale - SQ 4 units ACHS [facility] Administration Protocol Insulin Detemir 20 units 10/21/16 07:00 10/23/16 06:20 Levemir Vial SQ 20 units BIDAC [facility] Administration Metoprolol Tartrate 50 mg 10/20/16 22:00 10/23/16 09:11 Lopressor - PO 50 mg BID [facility] Administration Ranitidine HCl 150 mg 10/21/16 10:00 10/23/16 09:11 Zantac - PO 150 mg DAILY [facility] Administration Tamsulosin HCl 0.4 mg 10/21/16 08:30 10/23/16 08:17 Flomax - PO 0.4 mg DAILY@0830 [facility] Administration Objective: Vital Signs Period Temp Pulse Resp BP Sys/Grissom Pulse Ox Last 24 Hr 97.6 F-98.8 F 65-72 20-20 117-134/75-80 100 Physical Exam: General: NAD, A&Ox3 Lungs: CTA bilaterally Heart: RRR, S1S2 Abd: Soft, non-tender, non-distended. Normoactive bowel sounds Ext: Warm, well-perfused. 2+ DP/PT bilaterally Neuro: CN 2-12 intact CBCD WBC 6.3 K/mm3 (4.0-10.0) 10/21/16 07:05 RBC 4.32 M/mm3 (4.00-5.60) 10/21/16 07:05 Hgb 10.7 GM/dL (11.7-16.9) L 10/21/16 07:05 Hct 34.1 % (35.4-49) L 10/21/16 07:05 MCV 78.9 fl (80-96) L 10/21/16 07:05 MCHC 31.4 g/dl (32.0-35.9) L 10/21/16 07:05 RDW 17.8 % (11.9-15.9) H 10/21/16 07:05 Plt Count 192 K/MM3 (134-434) D 10/21/16 07:05 MPV 10.2 fl (7.5-11.1) 10/21/16 07:05 CMP Sodium 143 mmol/L (136-145) 10/23/16 08:15 Potassium 4.0 mmol/L (3.5-5.1) 10/23/16 08:15 Chloride 108 mmol/L (98-107) H 10/23/16 08:15 Carbon Dioxide 24 mmol/L (21-32) 10/23/16 08:15 Anion Gap 11 (8-16) 10/23/16 08:15 BUN 17 mg/dL (7-18) 10/23/16 08:15 Creatinine 1.2 mg/dL (0.7-1.3) 10/23/16 08:15 Creat Clearance w eGFR 46.54 (>60) 10/18/16 06:15 Random Glucose 157 mg/dL (74-106) H 10/23/16 08:15 Calcium 9.2 mg/dL (8.5-10.1) 10/23/16 08:15 Total Bilirubin 0.3 mg/dL (0.2-1.0) D 10/18/16 06:15 AST 55 U/L (15-37) H D 10/18/16 06:15 ALT 93 U/L (12-78) H D 10/18/16 06:15 Alkaline Phosphatase 152 U/L (45-117) H D 10/18/16 06:15 Total Protein 7.4 g/dl (6.4-8.2) 10/18/16 06:15 Albumin 2.6 g/dl (3.4-5.0) L 10/18/16 06:15 CARDIAC ENZYMES Creatine Kinase 56 IU/L (39-308) 10/14/16 19:53 Troponin I < 0.02 ng/ml (0.00-0.05) 10/14/16 19:53 Microbiology 10/16/16 10:40 Blood - Peripheral Venous Blood Culture - Final NO GROWTH AFTER 5 DAYS INCUBATION 10/16/16 10:20 Blood - Peripheral Venous Blood Culture - Final NO GROWTH AFTER 5 DAYS INCUBATION 10/14/16 19:53 Blood - Peripheral Venous Blood Culture - Final Escherichia Coli Esbl Catering Barista 10/14/16 19:42 Blood - Peripheral Venous Blood Culture - Final Escherichia Coli Esbl [employer]atering Barista 10/14/16 19:30 Urine - Urine Preciado Urine Culture - Final Escherichia Coli Esbl [employer]ater[employer]ista Imaging - Renal ultrasound 10/14 with moderate to marked left renal hydronephrosis that has worsened since prior exam on 01/18/16 - CTAP with marked left hydronephrosis and hydroureter down to a small and irregular urinary bladder Assessment: This is a 66 year old male with PMHx of ESBL UTI, HTN, [place] x2 (s/p cardiac stents), CAD, hyperlipidemia, DMII, neprholithiasis, TURP, left kidney stent placement, prostate cancer who presented to the ED s/p stent removal (2 days ago) with fever, chills, and left flank pain. Plan: 1) ID: Sepsis 2/2 ESBL bacteremia and UTI - Continue Ertapenem (4/21- ) - PICC line placement on Tuesday and will need abx through 10/29 - Appreciate ID consult 2) : Left hydronephrosis, MARY - S/p "attempted ureteroscopy and stenting" on 10/20 - Discussed with Dr. Langley and Dr. Bender, will go for neprhrostomy and PICC line placement on Tuesday - F/u urology consult 3) Cardiology: CAD s/p stents - Continue to hold ASA for nephrostomy placement on Tuesday - Continue Lipitor - Continue Lopressor HTN - Continue Norvasc 4) Endocrine: DN - ISS ACHS - BGM ACHS - Continue Levemir 20u sq bid 5) Oncology: Prostate cancer s/p TURP - Continue Flomax 6) F/E/N: - Monitor electrolytes - Diabetic/sodium controlled diet 7) Prophylaxis: - Heparin 5,000u sq tid - OOB ambulating 8) Dispo: - Requires continued inpatient care - PICC line placement on Tuesday. Will need IV abx through 10/29. Discussed with social welfare administrator Molly to set up at IV infusion center CODE STATUS: FULL CODE Visit type - Emergency Visit Emergency Visit: Yes ED Registration Date: 10/14/16 Care time: The patient presented to the Emergency Department on the above date and was hospitalized for further evaluation of their emergent condition. - New Patient This patient is new to me today: No - Critical Care Critical Care patient: No
[2016-10-23] MEDS ORDERED: PICC LINE 8 ML FLUSH PROTOCOL IVPUSH PRN (12:02)
--- NOTE | 2016-10-23 14:33 | PN ---
Progress Note, Physician History of Present Illness: stable no new issues - Current Medication List Current Medications: Active Medications Acetaminophen (Tylenol -) 650 mg PO Q4H PRN PRN Reason: FEVER OR PAIN Last Admin: 10/21/16 17:08 Dose: 650 mg Al Hydroxide/Mg Hydroxide (Mylanta Oral Suspension -) 30 ml PO Q6H PRN PRN Reason: DYSPEPSIA Amlodipine Besylate (Norvasc -) 10 mg PO DAILY [facility] Last Admin: 10/23/16 09:11 Dose: 10 mg Atorvastatin Calcium (Lipitor -) 40 mg PO HS [facility] Last Admin: 10/22/16 21:54 Dose: 40 mg Ferrous Sulfate (Feosol -) 325 mg PO BID [facility] Last Admin: 10/23/16 09:11 Dose: 325 mg Gabapentin (Neurontin -) 300 mg PO HS [facility] Last Admin: 10/22/16 21:55 Dose: 300 mg Heparin Sodium (Porcine) (Heparin -) 5,000 unit SQ TID [facility] Last Admin: 10/23/16 06:21 Dose: 5,000 unit IV Flush (Picc Line Flush) 8 ml IVPUSH PRN PRN PRN Reason: Protocol Ertapenem 1 gm/ Sodium (Chloride) 50 mls @ 100 mls/hr IVPB DAILY [facility] PRN Reason: Protocol Last Admin: 10/23/16 09:11 Dose: 100 mls/hr Sodium Chloride (Normal Saline -) 1,000 mls @ 75 mls/hr IV ASDIR [facility] Last Admin: 10/23/16 06:24 Dose: 75 mls/hr Insulin Aspart (Novolog Vial Sliding Scale -) 1 vial SQ ACHS [facility] PRN Reason: Protocol Last Admin: 10/23/16 11:50 Dose: 4 units Insulin Detemir (Levemir Vial) 20 units SQ BIDAC [facility] Last Admin: 10/23/16 06:20 Dose: 20 units Metoprolol Tartrate (Lopressor -) 50 mg PO BID [facility] Last Admin: 10/23/16 09:11 Dose: 50 mg Ranitidine HCl (Zantac -) 150 mg PO DAILY [facility] Last Admin: 10/23/16 09:11 Dose: 150 mg Tamsulosin HCl (Flomax -) 0.4 mg PO DAILY@0830 [facility] Last Admin: 10/23/16 08:17 Dose: 0.4 mg - Objective Vital Signs: Vital Signs Temperature 98.8 F 10/23/16 09:13 Pulse Rate 71 10/23/16 09:13 Respiratory Rate 20 10/23/16 09:13 Blood Pressure 117/76 10/23/16 09:13 O2 Sat by Pulse Oximetry (%) 100 10/22/16 21:00 Constitutional: Yes: No Distress, Calm Cardiovascular: Yes: Regular Rate and Rhythm Respiratory: Yes: Regular, CTA Bilaterally Gastrointestinal: Yes: Normal Bowel Sounds, Soft Genitourinary: Yes: Preciado Present Musculoskeletal: Yes: WNL Extremities: Yes: WNL Neurological: Yes: Alert, Oriented Psychiatric: Yes: Alert, Oriented Labs: CBC, BMP 10/21/16 07:05 10/23/16 08:15 INR, PTT INR 1.01 (0.82-1.09) 10/14/16 19:33 Assessment/Plan 66 yr old man with recent ureteral stent removal presents with intractable left flank pain found to have worsening of hydronephrosis. #UTI/ sepsis #Hydronephrosis #MARY - #DM II #HTN #Anemia - cva plan continue abx ecoli esbl uti 'gm negative bacteremia hydration finish the abx course awaiting for nephrosotomy placement
[2016-10-23] MEDS: ATORVASTATIN CA 40 MG TABLET (FP) PO SCH (21:59)
[2016-10-23] MEDS: GABAPENTIN 300 MG CAPSULE (FP) PO SCH (22:02)
[2016-10-24] MEDS: INSULIN SLIDING SCALE (NOVOLOG) 1 VIAL SQ SCH ×4 (06:08→22:18)
[2016-10-24] MEDS: INSULIN DETEMIR 100 UNITS/ML MDV SQ SCH ×2 (06:15→17:38)
[2016-10-24] MEDS: HEPARIN NA (PORCINE) 5,000 UNITS/ML 1ML VIAL SQ SCH ×3 (06:15→22:15)
[2016-10-24] MEDS: SODIUM CHLORIDE 1,000 ML IV SCH ×3 (06:20→22:13)
[2016-10-24] MEDS: TAMSULOSIN HCL 0.4 MG CAP.ER.24H (FP) PO SCH (09:04)
[2016-10-24] MEDS: amLODIPine BESYLATE 10 MG TABLET (FP) PO SCH (09:04)
[2016-10-24 09:05] LABS: INR 1.06 (0.82-1.09); PROTHROMBIN TIME (PATIENT) 11.7 SEC (9.98-11.88)
[2016-10-24] MEDS: FERROUS SO4 325 MG TABLET (FP) PO SCH ×2 (09:05→22:15)
[2016-10-24] MEDS: METOPROLOL TARTRATE 50 MG TABLET (FP) PO SCH ×2 (09:05→22:15)
[2016-10-24] MEDS: RANITIDINE HCL 150 MG TABLET (FP) PO SCH (09:05)
[2016-10-24 09:08] LABS: ACTIVATED PTT 45.4 SECONDS (26.9-34.4)
[2016-10-24 09:27] LABS: CALCIUM 8.7 mg/dL (8.5-10.1); COCKROFT - GAULT 62.44; CREATININE 1.2 mg/dL (0.7-1.3)
[2016-10-24] MEDS: ERTAPENEM SODIUM 1 GM in SODIUM CHLORIDE 50 ML IVPB SCH (09:53)
[2016-10-24] MEDS ORDERED: INSULIN (NOVOLOG) ASPART 100 UNITS/ML 10ML VIAL ONE ×2 (12:05→22:18)
--- NOTE | 2016-10-24 13:16 | PN ---
Physical Exam: SUBJECTIVE: Patient seen and examined. He has some perineal tenderness. His Left sided abdominal pain is gone. He is aware of his procedure tomorrow OBJECTIVE: Vital Signs Period Temp Pulse Resp BP Sys/Grissom Pulse Ox Last 24 Hr 98.0 F-98.2 F 66-81 18-20 132-140/79-81 PE Neuro: alert, awake, cn 2-12intact Pulm: CTAB CV: s1 s2 rrr no mrg Abd: s nt nd +bs : perineal incision CDI Ext: warm, no le edema Laboratory Results - last 24 hr 10/24/16 10/24/16 07:45 07:45 INR 1.06 PTT (Actin FS) 45.4 H Sodium 142 Potassium 4.1 Chloride 108 H Carbon Dioxide 26 Anion Gap 8 BUN 17 Creatinine 1.2 POC Glucometer Random Glucose 138 H Calcium 8.7 Active Medications Generic Name Dose Route Start Last Admin Trade Name Freq PRN Reason Stop Dose Admin Acetaminophen 650 mg 10/20/16 16:55 10/21/16 17:08 Tylenol - PO 650 mg Q4H PRN Administration FEVER OR PAIN Al Hydroxide/Mg Hydroxide 30 ml 10/20/16 16:55 Mylanta Oral Suspension - PO Q6H PRN DYSPEPSIA Amlodipine Besylate 10 mg 10/21/16 10:00 10/24/16 09:04 Norvasc - PO 10 mg DAILY [facility] Administration Atorvastatin Calcium 40 mg 10/20/16 22:00 10/23/16 21:59 Lipitor - PO 40 mg HS [facility] Administration Ferrous Sulfate 325 mg 10/20/16 22:00 10/24/16 09:05 Feosol - PO 325 mg BID [facility] Administration Gabapentin 300 mg 10/20/16 22:00 10/23/16 22:02 Neurontin - PO 300 mg HS [facility] Administration Heparin Sodium (Porcine) 5,000 unit 10/20/16 22:00 10/24/16 06:15 Heparin - SQ 5,000 unit TID [facility] Administration IV Flush 8 ml 10/23/16 12:02 Picc Line Flush IVPUSH PRN PRN Protocol Ertapenem 1 gm/ Sodium 50 mls @ 100 mls/hr 10/21/16 10:00 10/24/16 09:53 Chloride IVPB 100 mls/hr DAILY [facility] Administration Protocol Sodium Chloride 1,000 mls @ 75 mls/hr 10/20/16 16:55 10/24/16 08:15 Normal Saline - IV 75 mls/hr ASDIR [facility] Administration Insulin Aspart 1 vial 10/20/16 22:00 10/24/16 12:10 Novolog Vial Sliding Scale - SQ 4 units ACHS [facility] Administration Protocol Insulin Detemir 20 units 10/21/16 07:00 10/24/16 06:15 Levemir Vial SQ 20 units BIDAC [facility] Administration Metoprolol Tartrate 50 mg 10/20/16 22:00 10/24/16 09:05 Lopressor - PO 50 mg BID [facility] Administration Ranitidine HCl 150 mg 10/21/16 10:00 10/24/16 09:05 Zantac - PO 150 mg DAILY [facility] Administration Tamsulosin HCl 0.4 mg 10/21/16 08:30 10/24/16 09:04 Flomax - PO 0.4 mg DAILY@0830 [facility] Administration Imaging - Renal ultrasound 10/14 with moderate to marked left renal hydronephrosis that has worsened since prior exam on 01/18/16 - CTAP with marked left hydronephrosis and hydroureter down to a small and irregular urinary bladder Assessment: 66 year old male with PMHx of ESBL UTI, HTN, [place] x2 (s/p cardiac stents), CAD, hyperlipidemia, DMII, neprholithiasis, TURP, left kidney stent placement, prostate cancer admitted s/p stent removal (10/12) with fever, chills , and left flank pain. Plan: 1. Sepsis 2/2 ESBL bacteremia and UTI - Continue Ertapenem (10/15- ) - PICC line placement on Tuesday and will need abx through 10/29 2. Left hydronephrosis, MARY - S/p "attempted ureteroscopy and stenting" on 10/20 - Neprhrostomy and PICC line placement tomorrow 3. CAD s/p stents - Continue to hold ASA for nephrostomy placement on Tuesday - Continue Lipitor - Continue Lopressor 4. HTN - Continue Norvasc 5. DM II - ISS ACHS - BGM ACHS - Continue Levemir 20u sq bid 6. Prostate cancer s/p TURP - Continue Flomax 7. Dispo: - Requires continued inpatient care - PICC line placement on Tuesday. Will need IV abx through 10/29. dry drug worker Molly to set up at IV infusion center Visit type - Emergency Visit Emergency Visit: Yes ED Registration Date: 10/14/16 Care time: The patient presented to the Emergency Department on the above date and was hospitalized for further evaluation of their emergent condition. - New Patient This patient is new to me today: No - Critical Care Critical Care patient: No
--- NOTE | 2016-10-24 16:56 | PN ---
Progress Note, Physician History of Present Illness: stable no issues - Current Medication List Current Medications: Active Medications Acetaminophen (Tylenol -) 650 mg PO Q4H PRN PRN Reason: FEVER OR PAIN Last Admin: 10/21/16 17:08 Dose: 650 mg Al Hydroxide/Mg Hydroxide (Mylanta Oral Suspension -) 30 ml PO Q6H PRN PRN Reason: DYSPEPSIA Amlodipine Besylate (Norvasc -) 10 mg PO DAILY [facility] Last Admin: 10/24/16 09:04 Dose: 10 mg Atorvastatin Calcium (Lipitor -) 40 mg PO HS [facility] Last Admin: 10/23/16 21:59 Dose: 40 mg Ferrous Sulfate (Feosol -) 325 mg PO BID [facility] Last Admin: 10/24/16 09:05 Dose: 325 mg Gabapentin (Neurontin -) 300 mg PO HS [facility] Last Admin: 10/23/16 22:02 Dose: 300 mg Heparin Sodium (Porcine) (Heparin -) 5,000 unit SQ TID [facility] Last Admin: 10/24/16 13:50 Dose: 5,000 unit IV Flush (Picc Line Flush) 8 ml IVPUSH PRN PRN PRN Reason: Protocol Ertapenem 1 gm/ Sodium (Chloride) 50 mls @ 100 mls/hr IVPB DAILY [facility] PRN Reason: Protocol Last Admin: 10/24/16 09:53 Dose: 100 mls/hr Sodium Chloride (Normal Saline -) 1,000 mls @ 75 mls/hr IV ASDIR [facility] Last Admin: 10/24/16 08:15 Dose: 75 mls/hr Insulin Aspart (Novolog Vial Sliding Scale -) 1 vial SQ ACHS [facility] PRN Reason: Protocol Last Admin: 10/24/16 12:10 Dose: 4 units Insulin Detemir (Levemir Vial) 20 units SQ BIDAC [facility] Last Admin: 10/24/16 06:15 Dose: 20 units Metoprolol Tartrate (Lopressor -) 50 mg PO BID [facility] Last Admin: 10/24/16 09:05 Dose: 50 mg Ranitidine HCl (Zantac -) 150 mg PO DAILY [facility] Last Admin: 10/24/16 09:05 Dose: 150 mg Tamsulosin HCl (Flomax -) 0.4 mg PO DAILY@0830 [facility] Last Admin: 10/24/16 09:04 Dose: 0.4 mg - Objective Vital Signs: Vital Signs Temperature 98.3 F 10/24/16 15:42 Pulse Rate 62 10/24/16 15:42 Respiratory Rate 20 10/24/16 15:42 Blood Pressure 128/76 10/24/16 15:42 O2 Sat by Pulse Oximetry (%) 100 10/22/16 21:00 Constitutional: Yes: No Distress, Calm Cardiovascular: Yes: Regular Rate and Rhythm Respiratory: Yes: Regular, CTA Bilaterally Gastrointestinal: Yes: Normal Bowel Sounds, Soft Genitourinary: Yes: [place] Present Musculoskeletal: Yes: WNL Extremities: Yes: WNL Neurological: Yes: Alert, Oriented Psychiatric: Yes: Alert, Oriented Labs: CBC, BMP 10/21/16 07:05 10/24/16 07:45 INR, PTT INR 1.06 (0.82-1.09) 10/24/16 07:45 Assessment/Plan 66 yr old man with recent ureteral stent removal presents with intractable left flank pain found to have worsening of hydronephrosis. #UTI/ sepsis #Hydronephrosis #MARY - #DM II #HTN #Anemia - cva plan continue abx ecoli esbl uti 'gm negative bacteremia awaiting for nephrosotomy placement
[2016-10-24] MEDS ORDERED: INSULIN DETEMIR 100 UNITS/ML MDV SQ ONE (18:04)
[2016-10-24] MEDS: ATORVASTATIN CA 40 MG TABLET (FP) PO SCH (22:15)
[2016-10-24] MEDS: GABAPENTIN 300 MG CAPSULE (FP) PO SCH (22:15)
[2016-10-25] MEDS: HEPARIN NA (PORCINE) 5,000 UNITS/ML 1ML VIAL SQ SCH ×2 (05:57→14:18)
[2016-10-25] MEDS: INSULIN DETEMIR 100 UNITS/ML MDV SQ SCH ×2 (05:59→16:50)
[2016-10-25] MEDS: INSULIN SLIDING SCALE (NOVOLOG) 1 VIAL SQ SCH ×3 (05:59→16:51)
[2016-10-25 08:12] LABS: INR 1.05 (0.82-1.09); PROTHROMBIN TIME (PATIENT) 11.6 SEC (9.98-11.88)
[2016-10-25 08:35] LABS: CALCIUM 8.8 mg/dL (8.5-10.1); COCKROFT - GAULT 62.44; CREATININE 1.2 mg/dL (0.7-1.3)
[2016-10-25 08:47] LABS: BASOPHIL 0.8 % (0-2.0); EOSINOPHIL 3.2 % (0-4.5); MCHC 31.6 g/dl (32.0-35.9); MEAN CELL VOLUME 79.2 fl (80-96); MEAN PLT VOLUME 10.5 fl (7.5-11.1); NEUTROPHILS 60.5 % (42.8-82.8); PLATELET COUNT 239 K/MM3 (134-434); RDW 17.5 % (11.9-15.9); WHITE BLOOD COUNT 7.2 K/mm3 (4.0-10.0)
--- NOTE | 2016-10-25 10:43 | PN ---
[facility] [place] Note Chief Complaint: PT FOR PERC NEPHROSTOMY TODAY - Objective Vital Signs: Vital Signs Temperature 98.8 F 10/25/16 06:00 Pulse Rate 66 10/25/16 06:00 Respiratory Rate 18 10/25/16 06:00 Blood Pressure 134/69 10/25/16 06:00 O2 Sat by Pulse Oximetry (%) 95 10/24/16 21:00 Labs/Additional Data: CBC, BMP 10/25/16 07:05 10/25/16 07:05 INR, PTT INR 1.05 (0.82-1.09) 10/25/16 07:05 Assessment/Plan WILL NEED OUTPT TURBT
[2016-10-25] MEDS: ERTAPENEM SODIUM 1 GM in SODIUM CHLORIDE 50 ML IVPB SCH (14:15)
[2016-10-25] MEDS: TAMSULOSIN HCL 0.4 MG CAP.ER.24H (FP) PO SCH (14:16)
[2016-10-25] MEDS: FERROUS SO4 325 MG TABLET (FP) PO SCH (14:16)
[2016-10-25] MEDS: amLODIPine BESYLATE 10 MG TABLET (FP) PO SCH (14:17)
[2016-10-25] MEDS: RANITIDINE HCL 150 MG TABLET (FP) PO SCH (14:17)
[2016-10-25] MEDS: METOPROLOL TARTRATE 50 MG TABLET (FP) PO SCH (14:17)
[2016-10-25 15:27] VITALS: BP 145/82; PULSE 62; TEMP 97.5
[2016-10-25] MEDS ORDERED: INSULIN (NOVOLOG) ASPART 100 UNITS/ML 10ML VIAL ONE (16:49)
[2016-10-25] MEDS ORDERED: INSULIN DETEMIR 100 UNITS/ML MDV SQ ONE (16:57)
--- NOTE | 2016-10-25 17:38 | DS ---
Physical Exam: SUBJECTIVE: Patient seen and examined s/p nephrostomy tube, he feels well. He has some mild pain at the NT site. He knows to come to the hospital for completion of his abx. OBJECTIVE: Vital Signs Period Temp Pulse Resp BP Sys/[place] Pulse Ox Last 24 Hr 97.5 F-98.8 F 60-66 16-20 134-163/69-86 95-100 PE Neuro: alert, awake, cn 2-12intact Pulm: CTAB CV: s1 s2 rrr no mrg Abd: s nt nd +bs : L Nephrostomy tube site w mild tenderness, perineal incision CDI Ext: warm, no le edema, LUE picc Laboratory Results - last 24 hr 10/24/16 10/25/16 10/25/16 22:16 05:58 07:05 WBC 7.2 RBC 4.34 Hgb 10.8 L Hct 34.3 L MCV 79.2 L MCHC 31.6 L RDW 17.5 H Plt Count 239 D MPV 10.5 Neutrophils % 60.5 Lymphocytes % 30.6 Monocytes % 4.9 Eosinophils % 3.2 Basophils % 0.8 INR Sodium Potassium Chloride Carbon Dioxide Anion Gap BUN Creatinine POC Glucometer 239 123 Random Glucose Calcium 10/25/16 10/25/16 10/25/16 07:05 07:05 11:29 WBC RBC Hgb Hct MCV MCHC RDW Plt Count MPV Neutrophils % Lymphocytes % Monocytes % Eosinophils % Basophils % INR 1.05 Sodium 143 Potassium 3.8 Chloride 110 H Carbon Dioxide 26 Anion Gap 7 L BUN 16 Creatinine 1.2 POC Glucometer 115 Random Glucose 156 H Calcium 8.8 HOSPITAL COURSE: Date of Admission:10/14/16 Date of Discharge: 10/25/16 Minutes to complete discharge: 35 Discharge Summary Reason For Visit: PAIN, ACUTE Current Active Problems Acute kidney injury (Acute) UTI (urinary tract infection) (Acute) Hospital Course: Initial Hospital Course: Briefly, this 66 year old old man with uncontrolled IDDM II, s/p prostate cancer , incontinence, nephrothiasis, multiple UTI's with drug-resistant organisms presented with left flank pain since last night. It started after stent was removed in urologist's office. Since the removal he had fever, chills and nonpositional continuos left flank pain radiating to his groin. It is similar to pain he had in the past but worse last night, with no alleviating or exacerbating factors. After recent hospital discharge he was feeling well until the removal of the stent 10/12. Imaging - Renal ultrasound 10/14 with moderate to marked left renal hydronephrosis that has worsened since prior exam on 01/18/16 - CTAP with marked left hydronephrosis and hydroureter down to a small and irregular urinary bladder Subsequent Hospital Course/Progress Note/Discharge Summary by a/p: Assessment: 66 year old male with PMHx of ESBL UTI, HTN, [place] x2 (s/p cardiac stents), CAD, hyperlipidemia, DMII, neprholithiasis, TURP, left kidney stent placement, prostate cancer admitted s/p stent removal (10/12) with fever, chills , and left flank pain. Plan: 1. Sepsis 2/2 ESBL bacteremia and UTI - Continue Ertapenem (10/15-10/29 ) - PICC line placement 10/25 - To continue abx with transfusion center until 10/29 2. Left hydronephrosis, MARY - Unsuccessful attempted ureteroscopy and stenting on 10/20 - Neprhrostomy tube placed by IR 10/25 - Urine cx pending 3. CAD s/p stents - Resume ASA - Continue Lipitor - Continue Lopressor 4. HTN - Continue Norvasc - Resume Triamtrene/HCTZ - Monitor renal fx as outpt 5. DM II - Continue Levemir 20u sq bid - Cont ISS ACHS 6. Prostate cancer s/p TURP - Continue Flomax 7. MARY - Resolved 7. Dispo: - Home, continue abx with infusion center through 10/29 - Otpt f/u visit urology 10/28 14:15 pt and son aware Condition: Stable - Instructions Diet, Activity, Other Instructions: Please return to the ED for any new, persistent, or worsening symptoms. Follow up with your PCP in 1 week Resume home medications as directed Continue to come to the hospital every day until 10/29 for daily antibiotics after 10/29 you are done On 10/28 you have an appt with Dr. Langley at 2:15pm Referrals: Raquel Langley MD [Staff Physician] - 1 Week (10/28 2:15pm) Shine Langley MD [Primary Care Provider] - 1 Week () Disposition: HOME - Home Medications Comprehensive Discharge Medication List: Ambulatory Orders Amlodipine Besylate [Norvasc -] 10 mg PO DAILY 01/22/15 Ferrous Sulfate [Feosol] 325 mg PO BID 01/22/15 Tamsulosin HCl 0.4 mg PO DAILY 01/22/15 Esomeprazole Magnesium [Nexium 24Hr] 40 mg PO DAILY 11/22/15 Gabapentin [Neurontin -] 300 mg PO HS 11/22/15 Metoprolol Tartrate [Lopressor -] 50 mg PO BID 11/22/15 Atorvastatin Ca [Lipitor] 40 mg PO HS 10/02/16 Insulin Sliding Scale [Novolog Vial Sliding Scale -] 1 vial SQ ACHS #1 units 03/13 Triamterene/Hydrochlorothiazid [Triamterene-Hctz 37.5-25 mg Cp] 1 each PO DAILY 10/14/16 Ertapenem Sodium [Invanz -] 1 gm IVPB DAILY #4 vial 10/25/16 Insulin (Levemir) [Levemir Vial] 20 units SQ BIDAC #1 ml 10/25/16 Tramadol HCl [Ultram] 50 mg PO BID PRN #10 tablet MDD 2 10/25/16 This patient is new to me today: No Emergency Visit: Yes ED Registration Date: 10/14/16 Care time: The patient presented to the Emergency Department on the above date and was hospitalized for further evaluation of their emergent condition. Critical Care patient: No - Discharge Referral Referred to [facility] Med P.C.: No
--- NOTE | 2016-10-25 17:58 | PN ---
Progress Note, Physician History of Present Illness: doing well no new issues nephrostomy tube in place - Current Medication List Current Medications: Active Medications Acetaminophen (Tylenol -) 650 mg PO Q4H PRN PRN Reason: FEVER OR PAIN Last Admin: 10/21/16 17:08 Dose: 650 mg Al Hydroxide/Mg Hydroxide (Mylanta Oral Suspension -) 30 ml PO Q6H PRN PRN Reason: DYSPEPSIA Amlodipine Besylate (Norvasc -) 10 mg PO DAILY [facility] Last Admin: 10/25/16 14:17 Dose: 10 mg Atorvastatin Calcium (Lipitor -) 40 mg PO HS [facility] Last Admin: 10/24/16 22:15 Dose: 40 mg Ferrous Sulfate (Feosol -) 325 mg PO BID [facility] Last Admin: 10/25/16 14:16 Dose: 325 mg Gabapentin (Neurontin -) 300 mg PO HS [facility] Last Admin: 10/24/16 22:15 Dose: 300 mg Heparin Sodium (Porcine) (Heparin -) 5,000 unit SQ TID [facility] Last Admin: 10/25/16 14:18 Dose: 5,000 unit IV Flush (Picc Line Flush) 8 ml IVPUSH PRN PRN PRN Reason: Protocol Ertapenem 1 gm/ Sodium (Chloride) 50 mls @ 100 mls/hr IVPB DAILY [facility] PRN Reason: Protocol Last Admin: 10/25/16 14:15 Dose: 100 mls/hr Sodium Chloride (Normal Saline -) 1,000 mls @ 75 mls/hr IV ASDIR [facility] Last Admin: 10/24/16 22:13 Dose: 75 mls/hr Insulin Aspart (Novolog Vial Sliding Scale -) 1 vial SQ ACHS [facility] PRN Reason: Protocol Last Admin: 10/25/16 16:51 Dose: 10 units Insulin Detemir (Levemir Vial) 20 units SQ BIDAC [facility] Last Admin: 10/25/16 16:50 Dose: 20 units Metoprolol Tartrate (Lopressor -) 50 mg PO BID [facility] Last Admin: 10/25/16 14:17 Dose: 50 mg Ranitidine HCl (Zantac -) 150 mg PO DAILY [facility] Last Admin: 10/25/16 14:17 Dose: 150 mg Tamsulosin HCl (Flomax -) 0.4 mg PO DAILY@0830 [facility] Last Admin: 10/25/16 14:16 Dose: 0.4 mg - Objective Vital Signs: Vital Signs Temperature 97.5 F L 10/25/16 15:26 Pulse Rate 62 10/25/16 15:26 Respiratory Rate 16 10/25/16 13:01 Blood Pressure 145/82 10/25/16 15:26 O2 Sat by Pulse Oximetry (%) 100 10/25/16 13:01 Constitutional: Yes: No Distress, Calm Cardiovascular: Yes: Regular Rate and Rhythm Respiratory: Yes: Regular, CTA Bilaterally Gastrointestinal: Yes: Normal Bowel Sounds, Soft Genitourinary: Yes: Other (nephrostomy tube in place) Musculoskeletal: Yes: WNL Extremities: Yes: WNL Neurological: Yes: Alert, Oriented Psychiatric: Yes: Alert, Oriented Labs: CBC, BMP 10/25/16 07:05 10/25/16 07:05 INR, PTT INR 1.05 (0.82-1.09) 10/25/16 07:05 Assessment/Plan #UTI/ sepsis #Hydronephrosis #MARY - #DM II #HTN #Anemia - cva plan continue abx ecoli esbl uti 'gm negative bacteremia finish the course of abx as planned and discussed wiht the primary
== END 2016-10-25 18:45 | disposition home or self-care (01) | DRG 872 ==
LOC: JER 18:31 → JERBED 23:54 → J6S 10-15 01:21
PROVIDERS: ADMIT Internal Medicine; ATTEND Nurse Practitioner Acute Care
PROC: 0TJ Urinary System, Inspection (ICD-10-PCS; 2016-10-20)
PROC: 0T9130Z Drainage of Left Kidney with Drainage Device, Percutaneous Approach (ICD-10-PCS; principal; 2016-10-25)
PROC: 02HV33Z Insertion of Infusion Device into Superior Vena Cava, Percutaneous Approach (ICD-10-PCS; 2016-10-25)
PROC: B5181ZA Fluoroscopy of Superior Vena Cava using Low Osmolar Contrast, Guidance (ICD-10-PCS; 2016-10-25)
DX: A41.9 Sepsis, unspecified organism (principal); N30.40 Irradiation cystitis without hematuria; N13.30 Unspecified hydronephrosis; N17.9 Acute kidney failure, unspecified; N39.0 Urinary tract infection, site not specified; Y84.2 Radiological procedure and radiotherapy as the cause of abnormal reaction of the patient, or of later complication, without mention of misadventure at the time of the procedure; Y92.531 Health care provider office as the place of occurrence of the external cause; I25.10 Atherosclerotic heart disease of native coronary artery without angina pectoris; Z95.5 Presence of coronary angioplasty implant and graft; E78.5 Hyperlipidemia, unspecified; E11.65 Type 2 diabetes mellitus with hyperglycemia; Z79.4 Long term (current) use of insulin; I25.2 Old myocardial infarction; E88.2 Lipomatosis, not elsewhere classified; Z85.46 Personal history of malignant neoplasm of prostate; B96.1 Klebsiella pneumoniae [K. pneumoniae] as the cause of diseases classified elsewhere; K21.9 Gastro-esophageal reflux disease without esophagitis; D64.9 Anemia, unspecified
CPT/HCPCS: 36415; 36569; 71010-TC; 74178-TC; 75984-TC; 76000-TC; 76098-TC; 76775-TC; 76856-TC; 76998-TC; 77001-TC; 78708-TC; 80048; 80053; 81003; 81015; 82550; 83605; 84484; 85025; 85027; 85610; 85730; 87040; 87086; 87186; 87899; 93005; 93010; 93306-TC; 94010; 94760; 99283-25; A4358; A9562; C1729; C1751; C1769; J1644; Q9967

== ENCOUNTER 2016-10-26 07:01 | Day surgery (SDC) | payer OTHER ==
[2016-10-26] MEDS ORDERED: ERTAPENEM SODIUM 1 GM/50 ML PRE-DOCKED IVPB ONE (07:30)
[2016-10-26 08:36] VITALS: BP 117/81; PULSE 71; TEMP 98.6
== END 2016-10-26 08:35 | disposition home or self-care (01) ==
LOC: JINFUSION 07:01
PROVIDERS: ATTEND Internal Medicine
DX: A41.9 Sepsis, unspecified organism (principal)
CPT/HCPCS: 96365

== ENCOUNTER 2016-10-27 07:38 | Day surgery (SDC) | payer OTHER ==
[2016-10-27] MEDS: ERTAPENEM SODIUM 1 GM/50 ML PRE-DOCKED IVPB ONE (08:20)
[2016-10-27 08:33] VITALS: TEMP 97.9
[2016-10-27 09:20] VITALS: BP 124/79; PULSE 72
== END 2016-10-27 09:20 | disposition home or self-care (01) ==
LOC: JINFUSION 07:38
PROVIDERS: ATTEND Internal Medicine
DX: A41.9 Sepsis, unspecified organism (principal)
CPT/HCPCS: 96365

== ENCOUNTER 2016-10-28 07:10 | Day surgery (SDC) | payer OTHER ==
[2016-10-28] MEDS ORDERED: ERTAPENEM SODIUM 1 GM in SODIUM CHLORIDE 50 ML IVPB ONE (07:45)
[2016-10-28 09:06] VITALS: BP 135/90; PULSE 77
[2016-10-28 09:09] VITALS: TEMP 98.3
== END 2016-10-28 09:05 | disposition home or self-care (01) ==
LOC: JINFUSION 07:10
PROVIDERS: ATTEND Internal Medicine
DX: A41.9 Sepsis, unspecified organism (principal)
CPT/HCPCS: 96365

== ENCOUNTER 2016-10-29 07:11 | Day surgery (SDC) | payer OTHER ==
[2016-10-29] MEDS ORDERED: ERTAPENEM SODIUM 1 GM/50 ML PRE-DOCKED IVPB ONE (07:30)
[2016-10-29 08:31] VITALS: BP 132/79; PULSE 70; TEMP 97.9
== END 2016-10-29 08:51 | disposition home or self-care (01) ==
LOC: JINFUSION 07:11
PROVIDERS: ATTEND Internal Medicine
DX: A41.9 Sepsis, unspecified organism (principal)
CPT/HCPCS: 96365

== ENCOUNTER 2016-11-08 07:58 | Day surgery (SDC) | payer OTHER ==
[2016-11-05 11:09] VITALS: BMI 28.3
[2016-11-08 15:21] VITALS: PULSE 68; TEMP 98.3
[2016-11-08 15:27] VITALS: BP 142/80
== END 2016-11-08 15:20 | disposition home or self-care (01) ==
LOC: JRADIR 07:58
PROVIDERS: ATTEND Urology
PROC: 0TP5X0Z Removal of Drainage Device from Kidney, External Approach (ICD-10-PCS; principal; 2016-11-08)
PROC: 0T7D8DZ Dilation of Urethra with Intraluminal Device, Via Natural or Artificial Opening Endoscopic (ICD-10-PCS; 2016-11-08)
DX: T83.89XA Other specified complication of genitourinary prosthetic devices, implants and grafts, initial encounter (principal); N20.0 Calculus of kidney; N35.8 Other urethral stricture; Y84.9 Medical procedure, unspecified as the cause of abnormal reaction of the patient, or of later complication, without mention of misadventure at the time of the procedure; Y92.9 Unspecified place or not applicable
CPT/HCPCS: 50389; 50435; 50693; C1729; C1769; C1887

== ENCOUNTER → 2016-11-15 | Day surgery (SDC) | payer OTHER | END | disposition home or self-care (01) | LOC: JRADIR 09:11 | PROVIDERS: ATTEND Radiology Diagnostic Radiology | PROC: 0TP9X0Z Removal of Drainage Device from Ureter, External Approach (ICD-10-PCS; principal; 2016-11-15) | DX: Z43.6 Encounter for attention to other artificial openings of urinary tract (principal) | CPT/HCPCS: 50431; 74425-TC ==

== ENCOUNTER 2017-03-02 03:00 | Inpatient (IN) | payer MEDICARE, OTHER ==
[2017-03-02 03:23] VITALS: BMI 29.2
[2017-03-02] MEDS ORDERED: SODIUM CHLORIDE 0.9% 1000 ML INFUS.BAG IV PRN (03:42)
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
[2017-03-02 04:49] LABS: VENOUS BLOOD GAS HCO3 24.9 meq/L (19-25); VENOUS PH 7.43 (7.32-7.42)
[2017-03-02 04:58] LABS: PH,URINE 6.5 (5.0-8.0); URINE APPEARANCE SL CLOUDY; URINE BILIRUBIN 2+ (NEGATIVE); URINE BLOOD 3+ (NEGATIVE); URINE COLOR DK. RED; URINE KETONE TRACE (NEGATIVE)
[2017-03-02 05:00] LABS: BASOPHIL 0.3 % (0-2.0); EOSINOPHIL 0.4 % (0-4.5); MCHC 33.3 g/dl (32.0-35.9); MEAN CELL VOLUME 81.1 fl (80-96); MEAN PLT VOLUME 11.2 fl (7.5-11.1); NEUTROPHILS 87.3 % (42.8-82.8); PLATELET COUNT 99 K/MM3 (134-434); RDW 14.9 % (11.9-15.9); WHITE BLOOD COUNT 13.3 K/mm3 (4.0-10.0)
[2017-03-02 05:05] LABS: INR 1.09 (0.82-1.09)
[2017-03-02 05:07] LABS: ACTIVATED PTT 34.9 SECONDS (26.9-34.4)
[2017-03-02 05:10] LABS: URINE GLUCOSE (UA) 2+ (NEGATIVE); URINE LEUK ESTERASE 2+ (NEGATIVE); URINE NITRITE POSITIVE (NEGATIVE); URINE PROTEIN 3+ (NEGATIVE)
[2017-03-02 05:13] LABS: URINE BACTERIA FEW /hpf (NONE SEEN); URINE RBC TNTC /hpf (0-3)
[2017-03-02 05:24] LABS: ALBUMIN 3.1 g/dl (3.4-5.0); ANION GAP 12 (8-16); BILIRUBIN,TOTAL 0.2 mg/dL (0.2-1.0); CALCIUM 8.2 mg/dL (8.5-10.1); CO2 25 mmol/L (21-32); CREATININE 1.3 mg/dL (0.7-1.3); GLUCOSE,RANDOM 228 mg/dL (74-106); SGOT/AST 19 U/L (15-37); SGPT/ALT 28 U/L (12-78); TOT PROT 6.7 g/dl (6.4-8.2)
[2017-03-02 05:26] LABS: ALK PHOS 110 U/L (45-117); CPK 74 IU/L (39-308); TROPONIN I < 0.02 ng/ml (0.00-0.05)
[2017-03-02] MEDS ORDERED: ERTAPENEM SODIUM 1 GM in SODIUM CHLORIDE 50 ML IVPB ONE (05:29)
[2017-03-02] MEDS ORDERED: ERTAPENEM SODIUM 1 GM VIAL ONE (05:49)
[2017-03-02 06:00] LABS: PLATELET COMMENT2 NO CLOTTING DETECTED; PLATELET ESTIMATE SLT DECREASED (NORMAL)
[2017-03-02] MEDS ORDERED: ACETAMINOPHEN 1000 MG/100 ML VIAL (NON FORMULARY) IVPB ONE (06:12)
[2017-03-02] MEDS ORDERED: ACETAMINOPHEN INJECTION 100 ML IVPB ONE (06:13)
--- NOTE | 2017-03-02 07:05 | PDOC ---
*Physical Exam - Vital Signs Last Vital Signs Temp Pulse Resp BP Pulse Ox 99.7 F H 103 H 14 156/76 98 03/02/17 03:21 03/02/17 03:21 03/02/17 03:21 03/02/17 03:21 03/02/17 03:21 ED Treatment Course - LABORATORY CBC & Chemistry Diagram: 03/02/17 04:06 03/02/17 04:06 - ADDITIONAL ORDERS Additional order review: Laboratory Results 03/02/17 03/02/17 03/02/17 04:48 04:06 04:06 INR PTT (Actin FS) VBG pH 7.43 H POC VBG pCO2 38.4 POC VBG pO2 39.7 Mixed VBG HCO3 24.9 Sodium Potassium Chloride Carbon Dioxide Anion Gap BUN Creatinine Creat Clearance w eGFR Random Glucose Lactic Acid 2.5 H* Calcium Total Bilirubin AST ALT Alkaline Phosphatase Creatine Kinase Troponin I Total Protein Albumin Urine Color Urine Appearance Urine pH Urine Protein Urine Glucose (UA) Urine Ketones Urine Blood Urine Nitrite Urine Bilirubin Urine Urobilinogen Ur Leukocyte Esterase Urine RBC Urine WBC Urine Bacteria Blood Type O POSITIVE Antibody Screen Negative 03/02/17 03/02/17 03/02/17 04:06 04:06 04:00 INR 1.09 PTT (Actin FS) 34.9 H VBG pH POC VBG pCO2 POC VBG pO2 Mixed VBG HCO3 Sodium 137 Potassium 3.8 Chloride 100 Carbon Dioxide 25 Anion Gap 12 BUN 17 Creatinine 1.3 Creat Clearance w eGFR 54.90 Random Glucose 228 H D Lactic Acid Calcium 8.2 L Total Bilirubin 0.2 D AST 19 D ALT 28 D Alkaline Phosphatase 110 D Creatine Kinase 74 Troponin I < 0.02 Total Protein 6.7 Albumin 3.1 L Urine Color Dk. red Urine Appearance Sl cloudy Urine pH 6.5 Urine Protein 3+ H D Urine Glucose (UA) 2+ H Urine Ketones Trace H Urine Blood 3+ H Urine Nitrite Positive Urine Bilirubin 2+ H Urine Urobilinogen 1.0 Ur Leukocyte Esterase 2+ H Urine RBC Tntc Urine WBC 10-15 Urine Bacteria Few Blood Type Antibody Screen 03/02/17 04:06 RBC 4.43 MCV 81.1 MCHC 33.3 RDW 14.9 D MPV 11.2 H Neutrophils % 87.3 H D Lymphocytes % 7.0 L D Monocytes % 5.0 Eosinophils % 0.4 D Basophils % 0.3 - Medications Given in the ED: ED Medications Discontinued Medications Generic Name Dose Route Start Last Admin Trade Name Sj PRN Reason Stop Dose Admin Acetaminophen 1,000 mg 03/02/17 06:12 03/02/17 06:40 Ofirmev Injection - IVPB 03/02/17 06:13 1,000 mg ONCE ONE Administration Ertapenem 1 gm/ Sodium 50 mls @ 50 mls/hr 03/02/17 05:29 03/02/17 05:45 Chloride IVPB 03/02/17 06:28 50 mls/hr ONCE ONE Administration Protocol Medical Decision Making - Medical Decision Making 03/02/17 07:04 agree with care from ALIRIO Jain *DC/Admit/Observation/Transfer Diagnosis at time of Disposition: Diabetes UTI (urinary tract infection) Qualifiers: Urinary tract infection type: catheter-associated UTI Indwelling urinary catheter type: indwelling urethral catheter Encounter type: subsequent encounter Qualified Code(s): T83.511D - Infection and inflammatory reaction due to indwelling urethral catheter, subsequent encounter Hematuria Qualifiers: Hematuria type: idiopathic Glomerular morphologic changes: unspecified glomerular morphologic changes Qualified Code(s): N02.9 - Recurrent and persistent hematuria with unspecified morphologic changes
--- NOTE | 2017-03-02 09:09 | HP ---
CHIEF COMPLAINT: PCP: HISTORY OF PRESENT ILLNESS: 66 yo M with significant PMH of HTN, [place] x2, HLD, uncontrolled diabetes, CAD s/p stent, kidney stones, multidrugresistent UTI, s/p radical prostatectomy presents to ED with blood in his urine and pain in the scrotal area. Catheter was replaced by his urologist 2 days ago. Since then he has been having discomfort from his valero and noticed blod coming out with the urine . Patient denies fever, nausea, vomiting,D/C or diarrhea but. He reports chronic epigastric pain due to GERD. ER course was notable for: (1) IV fluids NS 1000 bolus (2) one dose of IV ertapenem 1g started in the ED (3)EKG: NSR with [address] block. Recent Travel:No PAST MEDICAL HISTORY:HTN, [place] x2, HLD, uncontrolled diabetes, CAD s/p stent, kidney stones, multidrugresistent UTI, s/p radical prostatectomy PAST SURGICAL HISTORY: s/p radical prostatectomy Social History: Smoking: None Alcohol:None Drugs: None Family History: Allergies lisinopril Allergy (Severe, Verified 03/02/17 03:21) Swelling HOME MEDICATIONS: Home Medications Medication Instructions Recorded Amlodipine Besylate [Norvasc -] 10 mg PO DAILY 01/22/15 Ferrous Sulfate [Feosol] 325 mg PO BID 01/22/15 Tamsulosin HCl 0.4 mg PO DAILY 01/22/15 Esomeprazole Magnesium [Nexium 40 mg PO DAILY 11/22/15 24Hr] Gabapentin [Neurontin -] 300 mg PO HS 11/22/15 Metoprolol Tartrate [Lopressor -] 50 mg PO BID 11/22/15 Atorvastatin Ca [Lipitor] 40 mg PO HS 10/02/16 Insulin Sliding Scale [Novolog 1 vial SQ ACHS #1 units 10/03/16 Vial Sliding Scale -] Triamterene/Hydrochlorothiazid 1 each PO DAILY 10/14/16 [Triamterene-Hctz 37.5-25 mg Cp] Insulin (Levemir) [Levemir Vial] 20 units SQ BIDAC #1 ml 10/25/16 Tramadol HCl [Ultram] 50 mg PO BID PRN #10 tablet MDD 2 10/25/16 REVIEW OF SYSTEMS CONSTITUTIONAL: Absent: fever, chills, diaphoresis, generalized weakness, malaise, loss of appetite, weight change HEENT: Absent: rhinorrhea, nasal congestion, throat pain, throat swelling, difficulty swallowing, mouth swelling, ear pain, eye pain, visual changes CARDIOVASCULAR: Absent: chest pain, syncope, palpitations, irregular heart rate, lightheadedness , peripheral edema RESPIRATORY: Absent: cough, shortness of breath, dyspnea with exertion, orthopnea, wheezing, stridor, hemoptysis GASTROINTESTINAL: Absent: abdominal pain, abdominal distension, nausea, vomiting, diarrhea, constipation, melena, hematochezia GENITOURINARY: Absent: dysuria, frequency, urgency, hesitancy, hematuria, flank pain, genital pain MUSCULOSKELETAL: Absent: myalgia, arthralgia, joint swelling, back pain, neck pain SKIN: Absent: rash, itching, pallor HEMATOLOGIC/IMMUNOLOGIC: Absent: easy bleeding, easy bruising, lymphadenopathy, frequent infections ENDOCRINE: Absent: unexplained weight gain, unexplained weight loss, heat intolerance, cold intolerance NEUROLOGIC: Absent: headache, focal weakness or paresthesias, dizziness, unsteady gait, seizure, mental status changes, bladder or bowel incontinence PSYCHIATRIC: Absent: anxiety, depression, suicidal or homicidal ideation, hallucinations. PHYSICAL EXAMINATION GENERAL: Awake, alert, and fully oriented, in no acute distress. HEAD: Normal with no signs of trauma. EYES: Pupils equal, sclera anicteric, conjunctiva clear. No lid lag. EARS, NOSE, THROAT: Moist mucous membranes. NECK: Normal range of motion, supple without lymphadenopathy, JVD, or masses. LUNGS: Breath sounds equal, clear to auscultation bilaterally. No wheezes, and no crackles. No accessory muscle use. HEART: Regular rate and rhythm, normal S1 and S2 without murmur, rub or gallop. ABDOMEN: Soft, nontender, not distended, normoactive bowel sounds, no guarding, no rebound, no masses. No hepatomegaly or splenomegaly. : Urinary catheter in place with dark blood fluid bag. pump device in the scrotum. +perineal tenderness , no scrotal swelling or tenderness no lesions or ulcerations on the penis. +shantelle blood from uretral meatus. +scrotal pump in place MUSCULOSKELETAL: Normal range of motion at all joints. No bony deformities or tenderness. CVA tenderness + on left side . UPPER EXTREMITIES: 2+ pulses, warm, well-perfused. No cyanosis. No clubbing. No peripheral edema. LOWER EXTREMITIES: 2+ pulses, warm, well-perfused. No calf tenderness. No peripheral edema. NEUROLOGICAL: Normal speech. Normal gait. PSYCHIATRIC: Cooperative. Good eye contact. Appropriate mood and affect. SKIN: Warm, dry, normal turgor, no rashes or lesions noted, normal capillary refill. 03/02/17 04:06 03/02/17 04:06 CBC,CMP WBC 13.3 K/mm3 (4.0-10.0) H D 03/02/17 04:06 RBC 4.43 M/mm3 (4.00-5.60) 03/02/17 04:06 Hgb 12.0 GM/dL (11.7-16.9) D 03/02/17 04:06 Hct 35.9 % (35.4-49) 03/02/17 04:06 MCV 81.1 fl (80-96) 03/02/17 04:06 MCH 27.0 pg (25.7-33.7) 03/02/17 04:06 MCHC 33.3 g/dl (32.0-35.9) 03/02/17 04:06 RDW 14.9 % (11.9-15.9) D 03/02/17 04:06 Plt Count 99 K/MM3 (134-434) L D 03/02/17 04:06 MPV 11.2 fl (7.5-11.1) H 03/02/17 04:06 Neutrophils % 87.3 % (42.8-82.8) H D 03/02/17 04:06 Lymphocytes % 7.0 % (8-40) L D 03/02/17 04:06 Monocytes % 5.0 % (3.8-10.2) 03/02/17 04:06 Eosinophils % 0.4 % (0-4.5) D 03/02/17 04:06 Basophils % 0.3 % (0-2.0) 03/02/17 04:06 Platelet Estimate Slt decreased (NORMAL) 03/02/17 04:06 Platelet Comment No clumping noted 03/02/17 04:06 Platelet Comment No clotting detected 03/02/17 04:06 Sodium 137 mmol/L (136-145) 03/02/17 04:06 Potassium 3.8 mmol/L (3.5-5.1) 03/02/17 04:06 Chloride 100 mmol/L (98-107) 03/02/17 04:06 Carbon Dioxide 25 mmol/L (21-32) 03/02/17 04:06 Anion Gap 12 (8-16) 03/02/17 04:06 BUN 17 mg/dL (7-18) 03/02/17 04:06 Creatinine 1.3 mg/dL (0.7-1.3) 03/02/17 04:06 Creat Clearance w eGFR 54.90 (>60) 03/02/17 04:06 POC Glucometer 213.87459 UNITS (()) 03/02/17 12:24 Random Glucose 228 mg/dL (74-106) H D 03/02/17 04:06 Lactic Acid 1.9 mmol/L (0.4-2.0) 03/02/17 10:00 Calcium 8.2 mg/dL (8.5-10.1) L 03/02/17 04:06 Total Bilirubin 0.2 mg/dL (0.2-1.0) D 03/02/17 04:06 AST 19 U/L (15-37) D 03/02/17 04:06 ALT 28 U/L (12-78) D 03/02/17 04:06 Alkaline Phosphatase 110 U/L (45-117) D 03/02/17 04:06 Creatine Kinase 74 IU/L (39-308) 03/02/17 04:06 Troponin I < 0.02 ng/ml (0.00-0.05) 03/02/17 04:06 Total Protein 6.7 g/dl (6.4-8.2) 03/02/17 04:06 Albumin 3.1 g/dl (3.4-5.0) L 03/02/17 04:06 ASSESSMENT/PLAN: 66 yo M with significant PMH of HTN, [place] x2, HLD, uncontrolled diabetes, CAD s/p stent, kidney stones, multidrugresistent UTI, s/p radical prostatectomy presents to ED with blood in his urine and pain in the groin area. His urologist changed his catheter 2 days ago and he devolped the hematuria the day after. in The ED patient was found to have sever sepsis secondary to complicated UTI and was admitted to med-surg for further evaluation. # Sever sepsis secondary to complicated UTI * HR 103 , WBC 13.3 , LA 2.5 , with complicated UTI * Start on IV fluids NS 1000 Bolus , continue X2 Boluses * Ertapenem 1g IVbp started in the ED , * Tylenol 1000 IVbp for pain and fever * Urology consult Dr. Langley : No intervention at this time * ID consult Dr. bah * Tylenol 650 mg Po Q6 hr for pain and fever * Blood culture * Urine culture * Repeat LA * repeat CBC , CMP * Isolation precaution due to multidrug resistant UTI. * Maintain valero catheter with frequent flushing * Renal US * Start Meropenem 1 g IVBP Q8hr per ID Dr. Bah * Monitor I&O # thrombocytopenia likely 2/2 sepsis vs dilutional vs primary * PLt 99 * Repeat CBC , Q8hr * contact PCP to get his base line # Acute blood loss , anemia 2/2 hematuria likely 2/2 kidney stone vs sever sepsis vs iatrogenic(unlikely) * started one day after changing the catheter * monitor clinically * repeat CBC Q 8hr * Transfuse as needed to keep Hgb >8 * UA and urine culture * f/u urologist recommendations * # HTN * BP today 156/76 * monitor BP * continue home meds : Amlodipin 10 mg PO daily, Metoprololm (lepressor ) 50 mg PO BID . * will hold if BP drop below 110/80 # Hyperglycemia , Chronic * HGA1C * Insuline sliding scale protocol * ACHS * hold metformin * was on levemir 20 units BID on last admission * confirm home meds # CAD , S/p Stent , chronic * Continue home meds Lepitor 40 PO HS * Monitor clinically # HLD * continue home meds , lipitor 40 PO HS * F/U Lipid panel as out patient # FEN * F: 1000 NS bolus X 2 * E : WNL * N: low NA , diabetic diet # Proph * GI: Protonix 40 mg Po daily * DVT : hold on Heparin till we got CBC result due to risk of bleeding # Dispo * Admit to med surg for sever sepsis * Case was discussed with the attending physician and the medical team Pranay Silva MD PGY1 Visit type - Emergency Visit Emergency Visit: Yes ED Registration Date: 03/02/17 Care time: The patient presented to the Emergency Department on the above date and was hospitalized for further evaluation of their emergent condition. - New Patient This patient is new to me today: Yes Date on this admission: 03/02/17 - Critical Care Critical Care patient: No
[2017-03-02] MEDS ORDERED: IBUPROFEN 600 MG TABLET (FP) PO PRN (09:10)
[2017-03-02] MEDS ORDERED: SODIUM CHLORIDE 0.45% 1,000 ML IV SCH (09:15)
[2017-03-02] MEDS ORDERED: SODIUM CHLORIDE 1,000 ML IV STA (10:04)
[2017-03-02] MEDS ORDERED: ACETAMINOPHEN WITH CODEINE 300MG/30MG TABLET PO PRN (10:06)
--- NOTE | 2017-03-02 10:22 | PN ---
Progress Note (short form) - Note Progress Note: s/p lull with stent x change yesterday presernts w uti pt started on abx c/w valero monitor i/o dean pelvic us no gu intervention at this time full consult to be dictated to follow
[2017-03-02] MEDS ORDERED: PANTOPRAZOLE 40 MG TABLET (FP) ONE (10:32)
[2017-03-02] MEDS: PANTOPRAZOLE 40 MG TABLET (FP) PO SCH (10:44)
[2017-03-02] MEDS ORDERED: INSULIN SLIDING SCALE (NOVOLOG) 1 VIAL SQ SCH ×2 (11:00→16:30)
[2017-03-02] MEDS ORDERED: ACETAMINOPHEN WITH CODEINE 300MG/30MG TABLET ONE (11:07)
[2017-03-02] MEDS ORDERED: ACETAMINOPHEN 325 MG TABLET (FP) ONE (11:08)
[2017-03-02] MEDS ORDERED: amLODIPine BESYLATE 5 MG TABLET (FP) ONE (13:37)
[2017-03-02] MEDS: amLODIPine BESYLATE 10 MG TABLET (FP) PO SCH (13:40)
--- NOTE | 2017-03-02 14:27 | CON.ID ---
Consult Consult Specialty:: infectious diseases Reason for Consultation:: uti, - History of Present Illness Chief Complaint: dysuria,hematuria,scrotal tenderness History of Present Illness: 66 yo M with significant PMH of HTN, [place] x2, HLD, uncontrolled diabetes, CAD s/p stent, kidney stones, multidrugresistent UTI, s/p radical prostatectomy presents to ED with blood in his urine and pain in the scrotal area. Catheter was replaced by his urologist 2 days ago. Since then he has been having discomfort from his valero and noticed blood coming out with the urine . 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 Cardio/Vascular: Yes: CAD (s/p stenting), HTN, Hyperlipdemia, [place] Gastrointestinal: Yes: Diverticulosis, GERD Renal/: Yes: Cancer (Prostate), Hematuria, Renal Calculi, UTI (ESBL), Other Infectious Disease: Yes: Other (ESBL UTI) Endocrine: Yes: Diabetes Mellitus - Past Surgical History Past Surgical History: Yes: Prostatectomy, Stent (PCI, ureteral stenting) - Alcohol/Substance Use Hx Alcohol Use: No History of Substance Use: reports: None - Smoking History Smoking history: Never smoked Have you smoked in the past 12 months: No Aproximately how many cigarettes per day: 0 If you are a former smoker, when did you quit?: 2014 - Social History ADL: Independent History of Recent Travel: No Home Medications - Allergies Allergies/Adverse Reactions: Allergies Allergy/AdvReac Type Severity Reaction Status Date / Time lisinopril Allergy Severe Swelling Verified 03/02/17 03:21 - Home Medications Home Medications: Ambulatory Orders Amlodipine Besylate [Norvasc -] 10 mg PO DAILY 01/22/15 Ferrous Sulfate [Feosol] 325 mg PO BID 01/22/15 Gabapentin [Neurontin -] 300 mg PO HS 11/22/15 Metoprolol Tartrate [Lopressor -] 50 mg PO BID 11/22/15 Atorvastatin Ca [Lipitor] 40 mg PO HS 10/02/16 Insulin Sliding Scale [Novolog Vial Sliding Scale -] 1 vial SQ ACHS #1 units 03/13 Ferrous Sulfate 325 mg PO DAILY 03/02/17 Ibuprofen 800 mg PO Q6H PRN 03/02/17 Insulin (Levemir) [Levemir Vial] 10 units SQ ACLD 03/02/17 Insulin (Levemir) [Levemir Vial] 20 units SQ AM 03/02/17 Meclizine HCl [Antivert -] 2 tab PO BID 03/02/17 Omeprazole 40 mg PO DAILY 03/02/17 Tramadol HCl [Ultram] 50 mg PO TID MDD 3 03/02/17 Review of Systems - Review of Systems Constitutional: reports: No Symptoms Eyes: reports: No Symptoms HENT: reports: No Symptoms Neck: reports: No Symptoms Cardiovascular: reports: No Symptoms Respiratory: reports: No Symptoms Gastrointestinal: reports: No Symptoms Genitourinary: reports: Burning, Dysuria, Other (scrotal pain) Musculoskeletal: reports: No Symptoms Integumentary: reports: No Symptoms Neurological: reports: No Symptoms Endocrine: reports: No Symptoms Hematology/Lymphatic: reports: No Symptoms Psychiatric: reports: No Symptoms Physical Exam Vital Signs: Vital Signs Temperature 99.9 F H 03/02/17 09:31 Pulse Rate 90 03/02/17 11:09 Respiratory Rate 18 03/02/17 11:09 Blood Pressure 159/85 03/02/17 11:09 O2 Sat by Pulse Oximetry (%) 94 L 03/02/17 11:09 Constitutional: Yes: Calm, Mild Distress Eyes: Yes: Conjunctiva Clear Neck: Yes: Supple Cardiovascular: Yes: Regular Rate and Rhythm Respiratory: Yes: Regular, CTA Bilaterally Gastrointestinal: Yes: Normal Bowel Sounds, Soft Renal/: Yes: Valero Present Musculoskeletal: Yes: WNL Extremities: Yes: WNL Neurological: Yes: Alert, Oriented Psychiatric: Yes: Alert, Oriented Imaging - Results Chest X-ray: Report Reviewed, Image Reviewed Assessment/Plan # sepsis # thrombocytopenia # Acute blood loss , # HTN uti i know these patient history very well and i think he has having uti and also might become septic very quickly plan will start patient on abx await for all cx reports hydration urology following
--- NOTE | 2017-03-02 15:01 | EKG ---
Test Reason : Blood Pressure : / mmHG Vent. Rate : 090 BPM Atrial Rate : 090 BPM P-R Int : 212 ms QRS Dur : 094 ms QT Int : 360 ms P-R-T Axes : 060 -01 039 degrees QTc Int : 440 ms SINUS RHYTHM WITH 1ST DEGREE A-V BLOCK POSSIBLE ANTERIOR INFARCT (CITED ON OR BEFORE 14-OCT-2016) ABNORMAL ECG WHEN COMPARED WITH ECG OF 14-OCT-2016 19:53, QUESTIONABLE CHANGE IN INITIAL FORCES OF ANTERIOR LEADS Confirmed by BYRON VIVAS MD ([id number]) on 03/02/2017 3:01:10 PM Referred By: Confirmed By:BYRON VIVAS MD
--- NOTE | 2017-03-02 15:36 | PN ---
Teaching Attending Note Name of Resident: Pranay Silva ATTENDING PHYSICIAN STATEMENT I saw and evaluated the patient. I reviewed the resident's note and discussed the case with the resident. I agree with the resident's findings and plan as documented. SUBJECTIVE:66yo M with PMH frequent UTI with Ecoli ESBL with recent valero catheter changed 2 days earlier by urology in the office presented to the ER with sudden onset of hematuria since yesterday. started suddenly and assoc with genital pain. denies any assoc fever, chills, N/V/C/D, dizzyness. states that he had no pain or hematuria during valero change. OBJECTIVE: Last Vital Signs Temp Pulse Resp BP Pulse Ox 99.9 F H 90 18 159/85 94 L 03/02/17 09:31 03/02/17 11:09 03/02/17 11:09 03/02/17 11:09 03/02/17 11:09 General NAD CV S1 S2 RRR no murmur/rub/gallop Lungs CTA B/L no wheezing/rales/rhonchi Abdomen soft NT/ND no suprapubic tenderness/distention +L CVA tenderness groin +perineal tenderness , no scrotal swelling or tenderness no lesions or ulcerations on the penis. +shantelle blood from uretral meatus. +scrotal pump in place extremities no pedal edema ASSESSMENT AND PLAN: 66yo M with extensive PMH including chronic valero catheter and recurrent ESBL UTI presented to the ER with hematuria and sepsis 1. Severe sepsis- medicine admission. Give 2-3L NS bolus. Started on ERtapenem in the ER due to UCx hx. Repeat lactic acid to ensure it is improving. will consult ID and urology for futther recommendations. maintain valero catheter for now. frequent flushing to prevent clot formation. check renal u/s. 2. Acute blood loss anemia- via valero catheter. unlikley due to trauma of placement as happened a day after catheter was placed. assoc with pain. trend Hgb Q8H. transfuse as necessary to maintain Hgb >8. 3. DM- elevated here. claims medication compliance. confirm home medications. was on levemir 20 units BID on last admission. cont diabetic diet. iss. 4. HTN- BP elevated in setting of sepsis will cont antihypertensives at this time 5. DVT ppx- SCD. will hold pharmacologic anticoagulation in setting of active bleeding.
[2017-03-02] MEDS: MEROPENEM 1 GM in DEXTROSE 5%-WATER - 100 ML IVPB SCH ×2 (16:45→18:05)
[2017-03-02] MEDS: INSULIN SLIDING SCALE (NOVOLOG) 1 VIAL SQ SCH ×2 (16:56→22:25)
[2017-03-02] MEDS: ACETAMINOPHEN 1000 MG/100 ML VIAL (NON FORMULARY) IVPB PRN (17:09)
[2017-03-02 18:54] LABS: MCH 27.4 pg (25.7-33.7); MCHC 33.4 g/dl (32.0-35.9); MEAN CELL VOLUME 82.1 fl (80-96); MEAN PLT VOLUME 11.1 fl (7.5-11.1); PLATELET COUNT 90 K/MM3 (134-434); RDW 15.2 % (11.9-15.9); WHITE BLOOD COUNT 12.4 K/mm3 (4.0-10.0)
[2017-03-02] MEDS: ATORVASTATIN CA 40 MG TABLET (FP) PO SCH (22:20)
[2017-03-02] MEDS: METOPROLOL TARTRATE 50 MG TABLET (FP) PO SCH (22:20)
[2017-03-02] MEDS: MECLIZINE HCL 25 MG TABLET (FP) PO SCH (22:20)
[2017-03-02] MEDS: GABAPENTIN 300 MG CAPSULE (FP) PO SCH (22:20)
[2017-03-02] MEDS: FERROUS SO4 325 MG TABLET (FP) PO SCH (22:20)
[2017-03-03 01:09] LABS: MCH 27.3 pg (25.7-33.7); MCHC 33.5 g/dl (32.0-35.9); MEAN CELL VOLUME 81.6 fl (80-96); MEAN PLT VOLUME 10.9 fl (7.5-11.1); PLATELET COUNT 84 K/MM3 (134-434); RDW 14.9 % (11.9-15.9); WHITE BLOOD COUNT 10.5 K/mm3 (4.0-10.0)
[2017-03-03] MEDS: ACETAMINOPHEN 1000 MG/100 ML VIAL (NON FORMULARY) IVPB PRN ×2 (01:13→09:17)
[2017-03-03] MEDS ORDERED: PT OWN MED DRAWER 7, Y5N ONE (01:30)
[2017-03-03] MEDS: MEROPENEM 1 GM in DEXTROSE 5%-WATER - 100 ML IVPB SCH ×3 (01:33→17:35)
[2017-03-03] MEDS: INSULIN SLIDING SCALE (NOVOLOG) 1 VIAL SQ SCH ×4 (06:51→21:56)
[2017-03-03 07:24] LABS: MCH 27.1 pg (25.7-33.7); MCHC 33.2 g/dl (32.0-35.9); MEAN CELL VOLUME 81.8 fl (80-96); MEAN PLT VOLUME 11.3 fl (7.5-11.1); PLATELET COUNT 75 K/MM3 (134-434); WHITE BLOOD COUNT 10.5 K/mm3 (4.0-10.0)
[2017-03-03 07:44] LABS: INR 1.18 (0.82-1.09)
[2017-03-03 07:47] LABS: ACTIVATED PTT 33.1 SECONDS (26.9-34.4)
[2017-03-03 07:53] LABS: ALBUMIN 2.7 g/dl (3.4-5.0); ANION GAP 10 (8-16); CALCIUM 7.7 mg/dL (8.5-10.1); CO2 25 mmol/L (21-32); GLUCOSE,RANDOM 229 mg/dL (74-106); MAGNESIUM 1.6 mg/dL (1.8-2.4)
[2017-03-03 07:57] LABS: ALK PHOS 96 U/L (45-117); BILIRUBIN,TOTAL 0.6 mg/dL (0.2-1.0); CREATININE 1.4 mg/dL (0.7-1.3); PHOSPHOROUS 1.7 mg/dL (2.5-4.9); SGOT/AST 14 U/L (15-37); SGPT/ALT 24 U/L (12-78); TOT PROT 6.3 g/dl (6.4-8.2)
[2017-03-03] MEDS: METOPROLOL TARTRATE 50 MG TABLET (FP) PO SCH ×2 (09:27→21:56)
[2017-03-03] MEDS: FERROUS SO4 325 MG TABLET (FP) PO SCH ×2 (09:27→21:56)
[2017-03-03] MEDS: PANTOPRAZOLE 40 MG TABLET (FP) PO SCH (09:27)
[2017-03-03] MEDS: amLODIPine BESYLATE 10 MG TABLET (FP) PO SCH (09:28)
[2017-03-03] MEDS: MECLIZINE HCL 25 MG TABLET (FP) PO SCH ×2 (09:28→21:56)
[2017-03-03] MEDS ORDERED: INSULIN (NOVOLOG) ASPART 100 UNITS/ML 10ML VIAL ONE ×2 (12:26→21:36)
--- NOTE | 2017-03-03 13:21 | PN ---
Progress Note, Physician History of Present Illness: spiked fever foleys removed unable to hold urine currently feeling better cx growing bacteria in urine and blood - Current Medication List Current Medications: Active Medications Amlodipine Besylate (Norvasc -) 10 mg PO DAILY [facility] Last Admin: 03/03/17 09:28 Dose: 10 mg Atorvastatin Calcium (Lipitor -) 40 mg PO HS [facility] Last Admin: 03/02/17 22:20 Dose: 40 mg Ferrous Sulfate (Feosol -) 325 mg PO BID [facility] Last Admin: 03/03/17 09:27 Dose: 325 mg Gabapentin (Neurontin -) 300 mg PO HS [facility] Last Admin: 03/02/17 22:20 Dose: 300 mg Meropenem 1 gm/ Dextrose 100 mls @ 200 mls/hr IVPB Q8H-IV [facility] PRN Reason: Protocol Last Admin: 03/03/17 10:04 Dose: 200 mls/hr Insulin Aspart (Novolog Vial Sliding Scale -) 1 vial SQ ACHS [facility] PRN Reason: Protocol Last Admin: 03/03/17 12:34 Dose: 6 unit Meclizine HCl (Antivert -) 25 mg PO BID [facility] Last Admin: 03/03/17 09:28 Dose: 25 mg Metoprolol Tartrate (Lopressor -) 50 mg PO BID [facility] Last Admin: 03/03/17 09:27 Dose: 50 mg Pantoprazole Sodium (Protonix -) 40 mg PO DAILY [facility] Last Admin: 03/03/17 09:27 Dose: 40 mg - Objective Vital Signs: Vital Signs Temperature 99.0 F 03/03/17 11:22 Pulse Rate 88 03/03/17 09:05 Respiratory Rate 20 03/03/17 09:05 Blood Pressure 145/75 03/03/17 09:05 O2 Sat by Pulse Oximetry (%) 96 03/03/17 10:00 Constitutional: Yes: No Distress, Calm Cardiovascular: Yes: Regular Rate and Rhythm Respiratory: Yes: Regular, CTA Bilaterally Gastrointestinal: Yes: Normal Bowel Sounds, Soft Musculoskeletal: Yes: WNL Extremities: Yes: WNL Neurological: Yes: Alert, Oriented Psychiatric: Yes: Alert, Oriented Labs: CBC, BMP 03/03/17 06:30 03/03/17 06:30 INR, PTT INR 1.18 (0.82-1.09) H 03/03/17 06:30 Assessment/Plan # sepsis # thrombocytopenia # Acute blood loss , # HTN uti gm negative bacteremia plan continue abx await for identification of bacteria repeat blood cx on tuesday hydration rest as per primary team
--- NOTE | 2017-03-03 14:14 | PN ---
Physical Exam: SUBJECTIVE: Patient seen and examined at bed side. He is doing well. He has a spiking fever of 102.4 over night improved with Tylenol. He denies any N/V/D/C. He denies chest pain , abdominal pain or urogenital pain. OBJECTIVE: Vital Signs Period Temp Pulse Resp BP Sys/Grissom Pulse Ox Last 24 Hr 99.0 F-102.6 F 81-101 17-20 119-145/57-89 96-100 GENERAL: The patient is awake, alert, and fully oriented, in no acute distress. HEAD: Normal with no signs of trauma. EYES: PERRL, sclera anicteric, conjunctiva clear. No ptosis. ENT: moist mucous membranes. NECK: Trachea midline, full range of motion, supple. LUNGS: Breath sounds equal, clear to auscultation bilaterally, no wheezes, no crackles, no accessory muscle use. HEART: Regular rate and rhythm, S1, S2 without murmur, rub or gallop. ABDOMEN: Soft, nontender, nondistended, normoactive bowel sounds, no guarding, no rebound, no hepatosplenomegaly, no masses. Mild left side CVA tenderness. :: Urinary catheter in place with less blood than yesterday. pump device in the scrotum. + little perineal tenderness , no scrotal swelling or tenderness no lesions or ulcerations on the penis. +scrotal pump in place EXTREMITIES: 2+ pulses, warm, well-perfused, no edema. NEUROLOGICAL: Normal speech, gait not observed. PSYCH: Normal mood, normal affect. SKIN: Warm, dry, normal turgor, no rashes or lesions noted Laboratory Results - last 24 hr 03/02/17 03/02/17 03/02/17 16:54 18:30 22:25 WBC 12.4 H RBC 4.08 Hgb 11.2 L Hct 33.5 L MCV 82.1 MCH 27.4 MCHC 33.4 RDW 15.2 Plt Count 90 L MPV 11.1 INR PTT (Actin FS) Sodium Potassium Chloride Carbon Dioxide Anion Gap BUN Creatinine Creat Clearance w eGFR POC Glucometer [phone] Random Glucose Hemoglobin A1c % Calcium Phosphorus Magnesium Total Bilirubin AST ALT Alkaline Phosphatase Total Protein Albumin 03/03/17 03/03/17 03/03/17 01:00 06:30 06:30 WBC 10.5 H 10.5 H RBC 3.95 L 4.13 Hgb 10.8 L 11.2 L Hct 32.2 L 33.8 L MCV 81.6 81.8 MCH 27.3 27.1 MCHC 33.5 33.2 RDW 14.9 15.0 Plt Count 84 L 75 L MPV 10.9 11.3 H INR 1.18 H PTT (Actin FS) 33.1 Sodium Potassium Chloride Carbon Dioxide Anion Gap BUN Creatinine Creat Clearance w eGFR POC Glucometer Random Glucose Hemoglobin A1c % Calcium Phosphorus Magnesium Total Bilirubin AST ALT Alkaline Phosphatase Total Protein Albumin 03/03/17 03/03/17 03/03/17 06:30 06:30 06:47 WBC RBC Hgb Hct MCV MCH MCHC RDW Plt Count MPV INR PTT (Actin FS) Sodium 136 Potassium 3.5 Chloride 101 Carbon Dioxide 25 Anion Gap 10 BUN 15 Creatinine 1.4 H Creat Clearance w eGFR 50.40 POC Glucometer 226 Random Glucose 229 H Hemoglobin A1c % 10.8 H D Calcium 7.7 L Phosphorus 1.7 L D Magnesium 1.6 L Total Bilirubin 0.6 D AST 14 L D ALT 24 Alkaline Phosphatase 96 Total Protein 6.3 L Albumin 2.7 L 03/03/17 11:32 WBC RBC Hgb Hct MCV MCH MCHC RDW Plt Count MPV INR PTT (Actin FS) Sodium Potassium Chloride Carbon Dioxide Anion Gap BUN Creatinine Creat Clearance w eGFR POC Glucometer 281 Random Glucose Hemoglobin A1c % Calcium Phosphorus Magnesium Total Bilirubin AST ALT Alkaline Phosphatase Total Protein Albumin Active Medications Generic Name Dose Route Start Last Admin Trade Name Freq PRN Reason Stop Dose Admin Amlodipine Besylate 10 mg 03/02/17 12:00 03/03/17 09:28 Norvasc - PO 10 mg DAILY [facility]IND[facility] Administration Atorvastatin Calcium 40 mg 03/02/17 22:00 03/02/17 22:20 Lipitor - PO 40 mg HS [facility] Administration Ferrous Sulfate 325 mg 03/02/17 22:00 03/03/17 09:27 Feosol - PO 325 mg BID [facility] Administration Gabapentin 300 mg 03/02/17 22:00 03/02/17 22:20 Neurontin - PO 300 mg HS [facility] Administration Meropenem 1 gm/ Dextrose 100 mls @ 200 mls/hr 03/02/17 14:30 03/03/17 10:04 IVPB 200 mls/hr Q8H-IV [facility] Administration Protocol Insulin Aspart 1 vial 03/02/17 11:11 03/03/17 12:34 Novolog Vial Sliding Scale - SQ 6 unit ACHS [facility] Administration Protocol Meclizine HCl 25 mg 03/02/17 22:00 03/03/17 09:28 Antivert - PO 25 mg BID [facility] Administration Metoprolol Tartrate 50 mg 03/02/17 22:00 03/03/17 09:27 Lopressor - PO 50 mg BID [facility] Administration Pantoprazole Sodium 40 mg 03/02/17 10:00 03/03/17 09:27 Protonix - PO 40 mg DAILY [facility] Administration ASSESSMENT/PLAN: spiked fever foleys removed unable to hold urine currently feeling better cx growing bacteria in urine and blood 66yo M with extensive PMH including chronic valero catheter and recurrent ESBL UTI presented to the ER with hematuria and sepsis 1. Severe sepsis due to UTI and bacteremia- Tm 102.6 clinically appears improved. Bcx with pending organism. ERtapenem switched to MEropenem day 2. renal u/s shows improved hydronephrosis with stent in place. f/u Cx 2. Acute blood loss anemia- via valero catheter. urine now draining clear. no intervention per urology. trend Hgb.. transfuse as necessary to maintain Hgb > 8. 3. DM- elevated here. claims medication compliance. confirm home medications. was on levemir 20 units BID on last admission. cont diabetic diet. iss. 4. HTN- BP elevated in setting of sepsis will cont antihypertensives at this time 5. DVT ppx- SCD. will hold pharmacologic anticoagulation in setting of active bleeding. 66 yo M with significant PMH of HTN, [place] x2, HLD, uncontrolled diabetes, CAD s/p stent, kidney stones,recurrent ESBL UTI, s/p radical prostatectomy presents to ED with blood in his urine and pain in the groin area. His urologist changed his catheter 2 days ago and he devolped the hematuria the day after. in The ED patient was found to have sever sepsis secondary to complicated UTI and was admitted to med-surg for further evaluation. # Sever sepsis secondary to complicated UTI and bacteremia * temp 102.6, Hr 81, WBC 10.5, LA 1.6 clinically improved * day of admission HR 103 , WBC 13.3 , LA 2.5 , with complicated UTI * Start on IV fluids NS 1000 Bolus , continue X2 Boluses, D/C fluids encourage drinking * Ertapenem 1g IVbp started in the ED , * Tylenol 1000 IVbp for pain and fever * Urology consult Dr. Langley : No intervention at this time, D/C Valero per urology * ID consult Dr. bah start Meropenem yesterday * Tylenol 650 mg Po Q6 hr for pain and fever * Blood culture pending organism * Urine culture * LA 1.6 resolved * repeat CBC , CMP * Isolation precaution due to ESBL resistant UTI. * D/C valero catheter Per Urologist * Renal US shows improved hydronephrosis with stent in place * Start Meropenem 1 g IVBP Q8hr per ID Dr. Bah * Monitor I&O * daily weight # thrombocytopenia likely 2/2 sepsis vs dilutional vs primary * PLt 99, today 75 droping * Repeat CBC , daily * # Acute blood loss , anemia 2/2 hematuria likely 2/2 kidney stone vs sever sepsis vs iatrogenic(unlikely) * started one day after changing the catheter * monitor clinically * repeat CBC daily * Transfuse as needed to keep Hgb >8 * UA and urine culture * f/u urologist recommendations * Dc Mike * # HTN * BP today 135/57 * monitor BP * continue home meds : Amlodipin 10 mg PO daily, Metoprololm (lepressor ) 50 mg PO BID . * will hold if BP drop below 110/80 # Hyperglycemia , Chronic * HGA1C 10.8 * Insuline sliding scale protocol * ACHS * hold metformin * was on levemir 20 units BID on last admission * confirm home meds # CAD , S/p Stent , chronic * Continue home meds Lepitor 40 PO HS * Monitor clinically # HLD * continue home meds , lipitor 40 PO HS * F/U Lipid panel as out patient # FEN * F: On no fluids * E : WNL * N: low Na diet , diabetic diet # Proph * GI: Protonix 40 mg Po daily * DVT : Scds, hold on Heparin due to risk of bleeding # Dispo * Admit to med surg for sever sepsis * Case was discussed with the attending physician and the medical team Pranay Silva MD PGY1 Visit type - Emergency Visit Emergency Visit: Yes ED Registration Date: 03/02/17 Care time: The patient presented to the Emergency Department on the above date and was hospitalized for further evaluation of their emergent condition. - New Patient This patient is new to me today: No - Critical Care Critical Care patient: No
--- NOTE | 2017-03-03 15:02 | PN ---
Teaching Attending Note Name of Resident: Pranay Silva ATTENDING PHYSICIAN STATEMENT I saw and evaluated the patient. I reviewed the resident's note and discussed the case with the resident. I agree with the resident's findings and plan as documented. SUBJECTIVE:states pain has resolved. denies CP, SOB, fever, chills, N/V/C/D OBJECTIVE: Last Vital Signs Temp Pulse Resp BP Pulse Ox 99.6 F 94 H 20 111/64 96 03/03/17 14:15 03/03/17 14:15 03/03/17 09:05 03/03/17 14:15 03/03/17 10:00 General NAD CV S1 S2 RRR no murmur/rub/gallop Lungs CTA B/L no wheezing/rales/rhonchi Abdomen soft NT/ND no suprapubic tenderness/distention ASSESSMENT AND PLAN: 66yo M with extensive PMH including chronic valero catheter and recurrent ESBL UTI presented to the ER with hematuria and sepsis 1. Severe sepsis due to UTI and bacteremia- Tm 102.6 clinically appears improved. Bcx with pending organism. Ertapenem switched to Meropenem day 2. renal u/s shows improved hydronephrosis with stent in place. f/u Cx 2. Acute blood loss anemia- via valero catheter. urine now draining clear. no intervention per urology. trend Hgb.. transfuse as necessary to maintain Hgb > 8. 3. DM-A1c 10.8. start levemir 10 units HS. cont diabetic diet. iss. 4. HTN- controlled. cont norvasc 5. hypophosphatemia- neutraphos 6. Hypomagenesmeia- [id number] 7. DVT ppx- SCD. will hold pharmacologic anticoagulation in setting of active bleeding.
[2017-03-03] MEDS ORDERED: NAPH,MB-DB/K PH,MBDB POWDER PACKET PO ONE (16:03)
[2017-03-03] MEDS ORDERED: MAGNESIUM OXIDE 400 MG TABLET (FP) PO ONE (16:03)
[2017-03-03] MEDS: ACETAMINOPHEN 325 MG TABLET (FP) PO PRN (17:33)
[2017-03-03] MEDS: GABAPENTIN 300 MG CAPSULE (FP) PO SCH (21:56)
[2017-03-03] MEDS: INSULIN DETEMIR 100 UNITS/ML MDV SQ SCH (21:56)
[2017-03-03] MEDS: ATORVASTATIN CA 40 MG TABLET (FP) PO SCH (21:56)
[2017-03-04] MEDS: ACETAMINOPHEN 325 MG TABLET (FP) PO PRN ×2 (00:20→09:28)
[2017-03-04 00:28] LABS: MCH 27.4 pg (25.7-33.7); MEAN CELL VOLUME 80.5 fl (80-96); MEAN PLT VOLUME 11.6 fl (7.5-11.1); PLATELET COUNT 70 K/MM3 (134-434); WHITE BLOOD COUNT 8.8 K/mm3 (4.0-10.0)
[2017-03-04] MEDS ORDERED: PT OWN MED DRAWER 7, Y5N ONE ×4 (02:34→17:51)
[2017-03-04] MEDS: MEROPENEM 1 GM in DEXTROSE 5%-WATER - 100 ML IVPB SCH ×3 (02:38→17:54)
[2017-03-04] MEDS: INSULIN SLIDING SCALE (NOVOLOG) 1 VIAL SQ SCH ×4 (06:54→21:27)
--- NOTE | 2017-03-04 08:14 | PN ---
Physical Exam: SUBJECTIVE: Patient seen and examined at bed side . he is doing well. he has a fever 101.1 over night resolved with tylenol. He denies any abdominal pain or urinary symptoms. no hematuria. constipation resolved. OBJECTIVE: Vital Signs Period Temp Pulse Resp BP Sys/Grissom Pulse Ox Last 24 Hr 98.3 F-102.8 F 84-104 20-20 104-145/64-84 96-96 GENERAL: The patient is awake, alert, and fully oriented, in no acute distress. HEAD: Normal with no signs of trauma. EYES: PERRL, sclera anicteric, conjunctiva clear. No ptosis. ENT: Ears normal, nares patent, oropharynx clear without exudates, moist mucous membranes. NECK: Trachea midline, full range of motion, supple. LUNGS: Breath sounds equal, clear to auscultation bilaterally, no wheezes, no crackles, no accessory muscle use. HEART: Regular rate and rhythm, S1, S2 without murmur, rub or gallop. ABDOMEN: Soft, nontender, nondistended, normoactive bowel sounds, no guarding, no rebound, no hepatosplenomegaly, no masses. EXTREMITIES: 2+ pulses, warm, well-perfused, no edema. NEUROLOGICAL: Normal speech, gait not observed. PSYCH: Normal mood, normal affect. SKIN: Warm, dry, normal turgor, no rashes or lesions noted Laboratory Results - last 24 hr 03/02/17 03/02/17 03/03/17 16:54 22:25 06:30 WBC RBC Hgb Hct MCV MCH MCHC RDW Plt Count MPV Sodium 136 Potassium 3.5 Chloride 101 Carbon Dioxide 25 Anion Gap 10 BUN 15 Creatinine 1.4 H Creat Clearance w eGFR 50.40 POC Glucometer [phone] Random Glucose 229 H Hemoglobin A1c % Calcium 7.7 L Phosphorus 1.7 L D Magnesium 1.6 L Total Bilirubin 0.6 D AST 14 L D ALT 24 Alkaline Phosphatase 96 Total Protein 6.3 L Albumin 2.7 L 03/03/17 03/03/17 03/03/17 06:30 06:47 11:32 WBC RBC Hgb Hct MCV MCH MCHC RDW Plt Count MPV Sodium Potassium Chloride Carbon Dioxide Anion Gap BUN Creatinine Creat Clearance w eGFR POC Glucometer 226 281 Random Glucose Hemoglobin A1c % 10.8 H D Calcium Phosphorus Magnesium Total Bilirubin AST ALT Alkaline Phosphatase Total Protein Albumin 03/03/17 03/03/17 03/04/17 16:45 21:55 00:01 WBC 8.8 RBC 3.74 L Hgb 10.2 L Hct 30.1 L MCV 80.5 MCH 27.4 MCHC 34.0 RDW 15.0 Plt Count 70 L MPV 11.6 H Sodium Potassium Chloride Carbon Dioxide Anion Gap BUN Creatinine Creat Clearance w eGFR POC Glucometer 269 181 Random Glucose Hemoglobin A1c % Calcium Phosphorus Magnesium Total Bilirubin AST ALT Alkaline Phosphatase Total Protein Albumin 03/04/17 06:46 WBC RBC Hgb Hct MCV MCH MCHC RDW Plt Count MPV Sodium Potassium Chloride Carbon Dioxide Anion Gap BUN Creatinine Creat Clearance w eGFR POC Glucometer 188 Random Glucose Hemoglobin A1c % Calcium Phosphorus Magnesium Total Bilirubin AST ALT Alkaline Phosphatase Total Protein Albumin Active Medications Generic Name Dose Route Start Last Admin Trade Name Freq PRN Reason Stop Dose Admin Acetaminophen 650 mg 03/03/17 17:25 03/04/17 00:20 Tylenol - PO 650 mg Q6H PRN Administration FEVER OR PAIN Amlodipine Besylate 10 mg 03/02/17 12:00 03/03/17 09:28 Norvasc - PO 10 mg DAILY LINDSE[facility] Administration Atorvastatin Calcium 40 mg 03/02/17 22:00 03/03/17 21:56 Lipitor - PO 40 mg HS LINDSE[facility] Administration Ferrous Sulfate 325 mg 03/02/17 22:00 03/03/17 21:56 Feosol - PO 325 mg BID LIND[facility] Administration Gabapentin 300 mg 03/02/17 22:00 03/03/17 21:56 Neurontin - PO 300 mg HS L[facility] Administration Meropenem 1 gm/ Dextrose 100 mls @ 200 mls/hr 03/02/17 14:30 03/04/17 02:38 IVPB 200 mls/hr Q8H-IV L[facility] Administration Protocol Insulin Aspart 1 vial 03/02/17 11:11 03/04/17 06:54 Novolog Vial Sliding Scale - SQ 2 unit ACHS LINDSEY Administration Protocol Insulin Detemir 10 units 03/03/17 22:00 03/03/17 21:56 Levemir Vial SQ 10 units HS LIND[facility] Administration Meclizine HCl 25 mg 03/02/17 22:00 03/03/17 21:56 Antivert - PO 25 mg BID L[facility] Administration Metoprolol Tartrate 50 mg 03/02/17 22:00 03/03/17 21:56 Lopressor - PO 50 mg BID LIND[facility] Administration Pantoprazole Sodium 40 mg 03/02/17 10:00 03/03/17 09:27 Protonix - PO 40 mg DAILY LINDSE[facility] Administration ASSESSMENT/PLAN: 66 yo M with significant PMH of HTN, [place] x2, HLD, uncontrolled diabetes, CAD s/p stent, kidney stones,recurrent ESBL UTI, s/p radical prostatectomy presents to ED with blood in his urine and pain in the groin area. His urologist changed his catheter 2 days ago and he devolped the hematuria the day after. in The ED patient was found to have sever sepsis secondary to complicated UTI and was admitted to med-surg for further evaluation. # Sever sepsis secondary to complicated UTI and bacteremia * temp 102.6, Hr 81, WBC 10.5, LA 1.6 clinically improved * day of admission HR 103 , WBC 13.3 , LA 2.5 , with complicated UTI * Start on IV fluids NS 1000 Bolus , continue X2 Boluses, D/C fluids encourage drinking * Ertapenem 1g IVbp started in the ED , * Tylenol 1000 IVbp for pain and fever * Urology consult Dr. Langley : No intervention at this time, D/C Valero per urology * ID consult Dr. bah start Meropenem day 3 * Tylenol 650 mg Po Q6 hr for pain and fever * Blood culture pending organism * Urine culture * LA 1.6 resolved * repeat CBC , CMP * Isolation precaution due to ESBL resistant UTI. * D/C valero catheter Per Urologist * Renal US shows improved hydronephrosis with stent in place * Start Meropenem 1 g IVBP Q8hr per ID Dr. Bah, day 3 * Monitor I&O * daily weight # thrombocytopenia likely 2/2 sepsis vs dilutional vs primary * PLt 99, today 75 droping * Repeat CBC , daily * # Acute blood loss , anemia 2/2 hematuria likely 2/2 kidney stone vs sever sepsis vs iatrogenic(unlikely) * H/H stable * started one day after changing the catheter * monitor clinically * repeat CBC daily * Transfuse as needed to keep Hgb >8 * Iron studies * F/UUA and urine culture * f/u urologist recommendations * Dc Folley per urologist # constipation, resolved * Miralax 17 g daily , stop if develop diarrhea * # Hypomagnesemea : Resolved #hypophosphatemia: neutraphos # HTN * BP today 135/57 * monitor BP * continue home meds : Amlodipin 10 mg PO daily, Metoprololm (lepressor ) 50 mg PO BID . * will hold if BP drop below 110/80 # Diabetes , Chronic * HGA1C 10.8 * Insuline sliding scale protocol * ACHS * hold metformin * continue on levemir 10 units BID * Diabetic diet # CAD , S/p Stent , chronic * Continue home meds Lepitor 40 PO HS * Monitor clinically # HLD * continue home meds , lipitor 40 PO HS * F/U Lipid panel as out patient # FEN * F: On no fluids * E : WNL * N: low Na diet , diabetic diet # Proph * GI: Protonix 40 mg Po daily * DVT : Scds, Start Heparin SQ TID , H/H are stable # Dispo * Admit to med surg for sever sepsis * Case was discussed with the attending physician and the medical team Pranay Silva MD PGY1 Visit type - Emergency Visit Emergency Visit: Yes ED Registration Date: 03/02/17 Care time: The patient presented to the Emergency Department on the above date and was hospitalized for further evaluation of their emergent condition. - New Patient This patient is new to me today: No - Critical Care Critical Care patient: No
[2017-03-04 08:57] LABS: MCH 27.1 pg (25.7-33.7); MCHC 33.6 g/dl (32.0-35.9); MEAN CELL VOLUME 80.7 fl (80-96); PLATELET COUNT 68 K/MM3 (134-434); RDW 14.8 % (11.9-15.9); WHITE BLOOD COUNT 9.3 K/mm3 (4.0-10.0)
[2017-03-04] MEDS: FERROUS SO4 325 MG TABLET (FP) PO SCH ×2 (09:29→21:20)
[2017-03-04] MEDS: PANTOPRAZOLE 40 MG TABLET (FP) PO SCH (09:29)
[2017-03-04] MEDS: POLYETHYLENE GLYCOL 3350 119 GM BTL PO SCH (09:29)
[2017-03-04] MEDS: MECLIZINE HCL 25 MG TABLET (FP) PO SCH ×2 (09:29→21:20)
[2017-03-04] MEDS: METOPROLOL TARTRATE 50 MG TABLET (FP) PO SCH ×2 (09:30→21:20)
[2017-03-04] MEDS: amLODIPine BESYLATE 10 MG TABLET (FP) PO SCH (09:30)
[2017-03-04 09:32] LABS: ANION GAP 10 (8-16); CO2 24 mmol/L (21-32); CREATININE 1.2 mg/dL (0.7-1.3); GLUCOSE,RANDOM 178 mg/dL (74-106); MAGNESIUM 1.8 mg/dL (1.8-2.4); PHOSPHOROUS 1.6 mg/dL (2.5-4.9)
[2017-03-04 09:36] LABS: CALCIUM 8.7 mg/dL (8.5-10.1)
[2017-03-04] MEDS ORDERED: NAPH,MB-DB/K PH,MBDB POWDER PACKET PO ONE (11:32)
--- NOTE | 2017-03-04 11:37 | PN ---
Teaching Attending Note Name of Resident: Pranay Silva ATTENDING PHYSICIAN STATEMENT I saw and evaluated the patient. I reviewed the resident's note and discussed the case with the resident. I agree with the resident's findings and plan as documented. SUBJECTIVE:c/o urinary incontinence. has sensation of incomplete bladder voiding. denies CP, SOB, fever, chills, abdominal pain, hematuria OBJECTIVE: Last Vital Signs Temp Pulse Resp BP Pulse Ox 99.6 F 98 H 18 146/90 96 03/04/17 08:50 03/04/17 08:50 03/04/17 08:50 03/04/17 08:50 03/03/17 21:00 General NAD Abdomen soft NT/ND no suprapubic tenderness/distention ASSESSMENT AND PLAN: 66yo M with extensive PMH including chronic valero catheter and recurrent ESBL UTI presented to the ER with hematuria and sepsis 1. Severe sepsis due to UTI and bacteremia- Tm 102.8 clinically appears improved. Bcx and Ucx ith EColi ESBL growing. will repeat Bcx in AM. on meropenem day 3. ID on board. f/u Cx 2. Acute blood loss anemia- via valero catheter. urine now draining clear. no intervention per urology. Hgb stable. check iron studies. transfuse as necessary to maintain Hgb >8. 3. DM-A1c 10.8. improved. cont levemir 10 units HS. titrate to optimize control. cont diabetic diet. iss. 4. HTN- controlled. cont norvasc 5. hypophosphatemia- neutraphos 6. Hypomagenesmeia- reolved 7. DVT ppx- start hep sq as hgb has remained stable
--- NOTE | 2017-03-04 13:36 | PN ---
Progress Note, Physician History of Present Illness: still spiking fevers urology following - Current Medication List Current Medications: Active Medications Acetaminophen (Tylenol -) 650 mg PO Q6H PRN PRN Reason: FEVER OR PAIN Last Admin: 03/04/17 09:28 Dose: 650 mg Amlodipine Besylate (Norvasc -) 10 mg PO DAILY [facility] Last Admin: 03/04/17 09:30 Dose: 10 mg Atorvastatin Calcium (Lipitor -) 40 mg PO HS [facility] Last Admin: 03/03/17 21:56 Dose: 40 mg Ferrous Sulfate (Feosol -) 325 mg PO BID [facility] Last Admin: 03/04/17 09:29 Dose: 325 mg Gabapentin (Neurontin -) 300 mg PO HS [facility] Last Admin: 03/03/17 21:56 Dose: 300 mg Heparin Sodium (Porcine) (Heparin -) 5,000 unit SQ TID [facility] Meropenem 1 gm/ Dextrose 100 mls @ 200 mls/hr IVPB Q8H-IV [facility] PRN Reason: Protocol Last Admin: 03/04/17 09:29 Dose: 200 mls/hr Insulin Aspart (Novolog Vial Sliding Scale -) 1 vial SQ ACHS [facility] PRN Reason: Protocol Last Admin: 03/04/17 11:29 Dose: 4 unit Insulin Detemir (Levemir Vial) 10 units SQ HS [facility] Last Admin: 03/03/17 21:56 Dose: 10 units Meclizine HCl (Antivert -) 25 mg PO BID [facility] Last Admin: 03/04/17 09:29 Dose: 25 mg Metoprolol Tartrate (Lopressor -) 50 mg PO BID [facility] Last Admin: 03/04/17 09:30 Dose: 50 mg Pantoprazole Sodium (Protonix -) 40 mg PO DAILY [facility] Last Admin: 03/04/17 09:29 Dose: 40 mg Polyethylene Glycol (Miralax (For Daily Use) -) 17 gm PO DAILY [facility] Last Admin: 03/04/17 09:29 Dose: 17 gm - Objective Vital Signs: Vital Signs Temperature 99.6 F 03/04/17 08:50 Pulse Rate 98 H 03/04/17 08:50 Respiratory Rate 18 03/04/17 08:50 Blood Pressure 146/90 03/04/17 08:50 O2 Sat by Pulse Oximetry (%) 97 03/04/17 09:00 Constitutional: Yes: Calm Cardiovascular: Yes: Regular Rate and Rhythm Respiratory: Yes: Regular, CTA Bilaterally Gastrointestinal: Yes: Normal Bowel Sounds, Soft Musculoskeletal: Yes: WNL Extremities: Yes: WNL Neurological: Yes: Alert, Oriented Psychiatric: Yes: Alert, Oriented Labs: CBC, BMP 03/04/17 07:30 03/04/17 07:30 INR, PTT INR 1.18 (0.82-1.09) H 03/03/17 06:30 Assessment/Plan # sepsis # thrombocytopenia # Acute blood loss , # HTN uti gm negative bacteremia plan continue abx bacteria identified still spiking await for repeat blood cx rest ct as per primary
[2017-03-04] MEDS: HEPARIN NA (PORCINE) 5,000 UNITS/ML 1ML VIAL SQ SCH ×2 (13:47→21:20)
[2017-03-04 16:32] LABS: MCH 27.7 pg (25.7-33.7); MCHC 33.9 g/dl (32.0-35.9); MEAN CELL VOLUME 81.8 fl (80-96); MEAN PLT VOLUME 11.5 fl (7.5-11.1); PLATELET COUNT 78 K/MM3 (134-434); WHITE BLOOD COUNT 9.5 K/mm3 (4.0-10.0)
[2017-03-04] MEDS: ATORVASTATIN CA 40 MG TABLET (FP) PO SCH (21:20)
[2017-03-04] MEDS: INSULIN DETEMIR 100 UNITS/ML MDV SQ SCH (21:20)
[2017-03-04] MEDS: GABAPENTIN 300 MG CAPSULE (FP) PO SCH (21:20)
[2017-03-05] MEDS ORDERED: PT OWN MED DRAWER 7, Y5N ONE ×2 (01:06→09:34)
[2017-03-05] MEDS: MEROPENEM 1 GM in DEXTROSE 5%-WATER - 100 ML IVPB SCH ×3 (01:08→18:28)
[2017-03-05] MEDS ORDERED: INSULIN (NOVOLOG) ASPART 100 UNITS/ML 10ML VIAL ONE ×3 (05:47→20:57)
[2017-03-05] MEDS: HEPARIN NA (PORCINE) 5,000 UNITS/ML 1ML VIAL SQ SCH ×3 (06:02→21:22)
[2017-03-05] MEDS: INSULIN SLIDING SCALE (NOVOLOG) 1 VIAL SQ SCH ×4 (06:26→21:23)
--- NOTE | 2017-03-05 08:44 | PN ---
Progress Note (short form) - Note Progress Note: asymptomatic. no difficulty urinating. urine is clear. denies CP, SOB, fever, chills, abdominal pain, N/V/C/D Current Medications Generic Name Dose Route Start Last Admin Trade Name Freq PRN Reason Stop Dose Admin Acetaminophen 650 mg 03/03/17 17:25 03/04/17 09:28 Tylenol - PO 650 mg Q6H PRN Administration FEVER OR PAIN Amlodipine Besylate 10 mg 03/02/17 12:00 03/04/17 09:30 Norvasc - PO 10 mg DAILY [facility] Administration Atorvastatin Calcium 40 mg 03/02/17 22:00 03/04/17 21:20 Lipitor - PO 40 mg HS [facility] Administration Ferrous Sulfate 325 mg 03/02/17 22:00 03/04/17 21:20 Feosol - PO 325 mg BID [facility] Administration Gabapentin 300 mg 03/02/17 22:00 03/04/17 21:20 Neurontin - PO 300 mg HS [facility] Administration Heparin Sodium (Porcine) 5,000 unit 03/04/17 14:00 03/05/17 06:02 Heparin - SQ 5,000 unit TID [facility] Administration Meropenem 1 gm/ Dextrose 100 mls @ 200 mls/hr 03/02/17 14:30 03/05/17 01:08 IVPB 200 mls/hr Q8H-IV [facility] Administration Protocol Insulin Aspart 1 vial 03/02/17 11:11 03/05/17 06:26 Novolog Vial Sliding Scale - SQ 4 unit ACHS [facility] Administration Protocol Insulin Detemir 10 units 03/03/17 22:00 03/04/17 21:20 Levemir Vial SQ 10 units HS [facility] Administration Insulin Detemir 10 units 03/05/17 08:43 Levemir Vial SQ 03/05/17 08:44 ONCE ONE Meclizine HCl 25 mg 03/02/17 22:00 03/04/17 21:20 Antivert - PO 25 mg BID [facility] Administration Metoprolol Tartrate 50 mg 03/02/17 22:00 03/04/17 21:20 Lopressor - PO 50 mg BID [facility] Administration Pantoprazole Sodium 40 mg 03/02/17 10:00 03/04/17 09:29 Protonix - PO 40 mg DAILY [facility] Administration Polyethylene Glycol 17 gm 03/04/17 10:00 03/04/17 09:29 Miralax (For Daily Use) - PO 17 gm DAILY [facility] Administration Last Vital Signs Temp Pulse Resp BP Pulse Ox 99.6 F 84 20 136/74 97 03/05/17 06:00 03/05/17 06:00 03/04/17 22:31 03/05/17 06:00 03/04/17 20:00 General NAD Abdomen soft NT/ND no suprapubic tenderness/distention CBCD WBC 7.2 K/mm3 (4.0-10.0) 03/05/17 07:30 RBC 4.01 M/mm3 (4.00-5.60) 03/05/17 07:30 Hgb 10.8 GM/dL (11.7-16.9) L 03/05/17 07:30 Hct 32.4 % (35.4-49) L 03/05/17 07:30 MCV 80.8 fl (80-96) 03/05/17 07:30 MCHC 33.2 g/dl (32.0-35.9) 03/05/17 07:30 RDW 14.7 % (11.9-15.9) 03/05/17 07:30 Plt Count 83 K/MM3 (134-434) L 03/05/17 07:30 MPV 11.7 fl (7.5-11.1) H 03/05/17 07:30 ASSESSMENT AND PLAN: 66yo M with extensive PMH including chronic valero catheter and recurrent ESBL UTI presented to the ER with hematuria and sepsis 1. Severe sepsis due to UTI and bacteremia- afebrile 24H. clinically improved. repeat BCx sent today. on meropenem day 4. ID on board. f/u Cx 2. Acute blood loss anemia- via valero catheter. urine now draining clear. no intervention per urology. Hgb stable. iron studies pending. transfuse as necessary to maintain Hgb >8. 3. DM-A1c 10.8. uncontrolled. re-start Am dose of levemir. will be on 10 units BID. titrate to optimize control. cont diabetic diet. iss. 4. HTN- controlled. cont norvasc 5. hypophosphatemia- neutraphos x2 6. Hypomagenesmeia- resolved 7. DVT ppx- hep sq Visit type - Emergency Visit Emergency Visit: Yes ED Registration Date: 03/02/17 Care time: The patient presented to the Emergency Department on the above date and was hospitalized for further evaluation of their emergent condition. - New Patient This patient is new to me today: No - Critical Care Critical Care patient: No - Discharge Referral Referred to [facility] Med [facility] No
[2017-03-05] MEDS ORDERED: INSULIN DETEMIR 100 UNITS/ML MDV SQ ONE (09:00)
[2017-03-05 09:10] LABS: MCH 26.8 pg (25.7-33.7); MCHC 33.2 g/dl (32.0-35.9); MEAN CELL VOLUME 80.8 fl (80-96); MEAN PLT VOLUME 11.7 fl (7.5-11.1); PLATELET COUNT 83 K/MM3 (134-434); RDW 14.7 % (11.9-15.9); WHITE BLOOD COUNT 7.2 K/mm3 (4.0-10.0)
[2017-03-05] MEDS: POLYETHYLENE GLYCOL 3350 119 GM BTL PO SCH (09:37)
[2017-03-05] MEDS: METOPROLOL TARTRATE 50 MG TABLET (FP) PO SCH ×2 (09:39→21:23)
[2017-03-05] MEDS: amLODIPine BESYLATE 10 MG TABLET (FP) PO SCH (09:39)
[2017-03-05] MEDS: PANTOPRAZOLE 40 MG TABLET (FP) PO SCH (09:39)
[2017-03-05] MEDS: FERROUS SO4 325 MG TABLET (FP) PO SCH ×2 (09:39→21:23)
[2017-03-05] MEDS: MECLIZINE HCL 25 MG TABLET (FP) PO SCH ×2 (09:40→21:23)
--- NOTE | 2017-03-05 13:25 | PN ---
Progress Note, Physician History of Present Illness: no fevers for last 24 hrs patient feeling well - Current Medication List Current Medications: Active Medications Acetaminophen (Tylenol -) 650 mg PO Q6H PRN PRN Reason: FEVER OR PAIN Last Admin: 03/04/17 09:28 Dose: 650 mg Amlodipine Besylate (Norvasc -) 10 mg PO DAILY [facility] Last Admin: 03/05/17 09:39 Dose: 10 mg Atorvastatin Calcium (Lipitor -) 40 mg PO HS [facility] Last Admin: 03/04/17 21:20 Dose: 40 mg Ferrous Sulfate (Feosol -) 325 mg PO BID [facility] Last Admin: 03/05/17 09:39 Dose: 325 mg Gabapentin (Neurontin -) 300 mg PO HS [facility] Last Admin: 03/04/17 21:20 Dose: 300 mg Heparin Sodium (Porcine) (Heparin -) 5,000 unit SQ TID [facility] Last Admin: 03/05/17 06:02 Dose: 5,000 unit Meropenem 1 gm/ Dextrose 100 mls @ 200 mls/hr IVPB Q8H-IV [facility] PRN Reason: Protocol Last Admin: 03/05/17 09:38 Dose: 200 mls/hr Insulin Aspart (Novolog Vial Sliding Scale -) 1 vial SQ ACHS [facility] PRN Reason: Protocol Last Admin: 03/05/17 12:36 Dose: 8 unit Insulin Detemir (Levemir Vial) 10 units SQ HS [facility] Last Admin: 03/04/17 21:20 Dose: 10 units Meclizine HCl (Antivert -) 25 mg PO BID [facility] Last Admin: 03/05/17 09:40 Dose: 25 mg Metoprolol Tartrate (Lopressor -) 50 mg PO BID [facility] Last Admin: 03/05/17 09:39 Dose: 50 mg Pantoprazole Sodium (Protonix -) 40 mg PO DAILY [facility] Last Admin: 03/05/17 09:39 Dose: 40 mg Polyethylene Glycol (Miralax (For Daily Use) -) 17 gm PO DAILY [facility] Last Admin: 03/05/17 09:37 Dose: 17 gm - Objective Vital Signs: Vital Signs Temperature 98.3 F 03/05/17 08:00 Pulse Rate 85 03/05/17 08:00 Respiratory Rate 18 03/05/17 08:00 Blood Pressure 129/78 03/05/17 08:00 O2 Sat by Pulse Oximetry (%) 97 03/04/17 20:00 Constitutional: Yes: No Distress, Calm Cardiovascular: Yes: Regular Rate and Rhythm Respiratory: Yes: Regular, CTA Bilaterally Gastrointestinal: Yes: Normal Bowel Sounds, Soft Musculoskeletal: Yes: WNL Extremities: Yes: WNL Neurological: Yes: Alert, Oriented Psychiatric: Yes: Alert, Oriented Labs: CBC, BMP 03/05/17 07:30 03/04/17 07:30 INR, PTT INR 1.18 (0.82-1.09) H 03/03/17 06:30 Assessment/Plan # sepsis # thrombocytopenia # Acute blood loss , # HTN uti gm negative bacteremia plan continue abx bacteria identified repeat blood cx awaited rest continue current mgmt will consider repeating u/s of the kidneys again
[2017-03-05] MEDS ORDERED: NAPH,MB-DB/K PH,MBDB POWDER PACKET PO ONE (13:34)
[2017-03-05] MEDS: GABAPENTIN 300 MG CAPSULE (FP) PO SCH (21:23)
[2017-03-05] MEDS: ATORVASTATIN CA 40 MG TABLET (FP) PO SCH (21:23)
[2017-03-05] MEDS ORDERED: INSULIN DETEMIR 100 UNITS/ML MDV SQ SCH (22:00)
[2017-03-06] MEDS ORDERED: PT OWN MED DRAWER 7, Y5N ONE ×3 (00:35→17:15)
[2017-03-06] MEDS: MEROPENEM 1 GM in DEXTROSE 5%-WATER - 100 ML IVPB SCH ×3 (02:38→17:38)
[2017-03-06] MEDS: HEPARIN NA (PORCINE) 5,000 UNITS/ML 1ML VIAL SQ SCH ×3 (06:24→21:51)
[2017-03-06] MEDS: INSULIN SLIDING SCALE (NOVOLOG) 1 VIAL SQ SCH ×4 (06:25→21:54)
[2017-03-06] MEDS ORDERED: INSULIN (NOVOLOG) ASPART 100 UNITS/ML 10ML VIAL ONE (06:33)
--- NOTE | 2017-03-06 07:54 | PN ---
Physical Exam: SUBJECTIVE: Patient seen and examined at bed side. No acute events over nights . He henna any fever, chills ,N/V/D/C. OBJECTIVE: Vital Signs Period Temp Pulse Resp BP Sys/Grissom Pulse Ox Last 24 Hr 98.3 F-100.0 F 78-85 18-22 114-129/68-78 98-98 GENERAL: The patient is awake, alert, and fully oriented, in no acute distress. HEAD: Normal with no signs of trauma. EYES: PERRL, extraocular movements intact, sclera anicteric, conjunctiva clear. No ptosis. ENT: Ears normal, nares patent, oropharynx clear without exudates, moist mucous membranes. NECK: Trachea midline, full range of motion, supple. LUNGS: Breath sounds equal, clear to auscultation bilaterally, no wheezes, no crackles, no accessory muscle use. HEART: Regular rate and rhythm, S1, S2 without murmur, rub or gallop. ABDOMEN: Soft, nontender, nondistended, normoactive bowel sounds, no guarding, no rebound, no hepatosplenomegaly, no masses. EXTREMITIES: 2+ pulses, warm, well-perfused, no edema. NEUROLOGICAL: Cranial nerves II through XII grossly intact. Normal speech, gait not observed. PSYCH: Normal mood, normal affect. SKIN: Warm, dry, normal turgor, no rashes or lesions noted Laboratory Results - last 24 hr 03/05/17 03/05/17 03/05/17 07:30 07:30 07:30 WBC 7.2 RBC 4.01 Hgb 10.8 L Hct 32.4 L MCV 80.8 MCH 26.8 MCHC 33.2 RDW 14.7 Plt Count 83 L MPV 11.7 H POC Glucometer Phosphorus 2.0 L D Ferritin 178.849 03/05/17 03/05/17 03/05/17 12:14 16:54 20:51 WBC RBC Hgb Hct MCV MCH MCHC RDW Plt Count MPV POC Glucometer 303 292 285 Phosphorus Ferritin 03/06/17 06:07 WBC RBC Hgb Hct MCV MCH MCHC RDW Plt Count MPV POC Glucometer 177 Phosphorus Ferritin Active Medications Generic Name Dose Route Start Last Admin Trade Name Freq PRN Reason Stop Dose Admin Acetaminophen 650 mg 03/03/17 17:25 03/04/17 09:28 Tylenol - PO 650 mg Q6H PRN Administration FEVER OR PAIN Amlodipine Besylate 10 mg 03/02/17 12:00 03/05/17 09:39 Norvasc - PO 10 mg DAILY [facility] Administration Atorvastatin Calcium 40 mg 03/02/17 22:00 03/05/17 21:23 Lipitor - PO 40 mg HS [facility] Administration Ferrous Sulfate 325 mg 03/02/17 22:00 03/05/17 21:23 Feosol - PO 325 mg BID [facility] Administration Gabapentin 300 mg 03/02/17 22:00 03/05/17 21:23 Neurontin - PO 300 mg HS [facility] Administration Heparin Sodium (Porcine) 5,000 unit 03/04/17 14:00 03/06/17 06:24 Heparin - SQ 5,000 unit TID [facility] Administration Meropenem 1 gm/ Dextrose 100 mls @ 200 mls/hr 03/02/17 14:30 03/06/17 02:38 IVPB 200 mls/hr Q8H-IV [facility] Administration Protocol Insulin Aspart 1 vial 03/02/17 11:11 03/06/17 06:25 Novolog Vial Sliding Scale - SQ 2 unit ACHS [facility] Administration Protocol Insulin Detemir 10 units 03/05/17 22:00 03/05/17 21:22 Levemir Vial SQ 10 units BID [facility] Administration Meclizine HCl 25 mg 03/02/17 22:00 03/05/17 21:23 Antivert - PO 25 mg BID [facility] Administration Metoprolol Tartrate 50 mg 03/02/17 22:00 03/05/17 21:23 Lopressor - PO 50 mg BID [facility] Administration Pantoprazole Sodium 40 mg 03/02/17 10:00 03/05/17 09:39 Protonix - PO 40 mg DAILY [facility] Administration Polyethylene Glycol 17 gm 03/04/17 10:00 03/05/17 09:37 Miralax (For Daily Use) - PO 17 gm DAILY [facility] Administration CBC, BMP 03/06/17 06:00 03/04/17 07:30 ASSESSMENT/PLAN: 66 yo M with significant PMH of HTN, ND x2, HLD, uncontrolled diabetes, CAD s/p stent, kidney stones,recurrent ESBL UTI, s/p radical prostatectomy presents to ED with blood in his urine and pain in the groin area. His urologist changed his catheter 2 days ago and he devolped the hematuria the day after. in The ED patient was found to have sever sepsis secondary to complicated UTI and was admitted to med-surg for further evaluation. # Sever sepsis secondary to complicated UTI and bacteremia * day of admission temp 102.6, Hr 81, WBC 10.5, LA 1.6 clinically improved * day of admission HR 103 , WBC 13.3 , LA 2.5 , with complicated UTI * Start on IV fluids NS 1000 Bolus , continue X2 Boluses, D/C fluids encourage drinking * Ertapenem 1g IVbp started in the ED , * Tylenol 1000 IVbp for pain and fever * Urology consult Dr. Langley : No intervention at this time, D/C Valero per urology * ID consult Dr. bah start Meropenem day 5 * Tylenol 650 mg Po Q6 hr for pain and fever * repeated Blood culture shows no growth * Urine culture * LA 1.6 resolved * repeat CBC , CMP * Isolation precaution due to ESBL resistant UTI. * D/C valero catheter Per Urologist * Renal US shows improved hydronephrosis with stent in place * Start Meropenem 1 g IVBP Q8hr per ID Dr. Bah, day 5 * repeat BCx with NGTD. on meropenem day 5. will d/w ID about abx duration and possible PICC line placement. ID on board. f/u Cx * Monitor I&O * daily weight # thrombocytopenia likely 2/2 sepsis vs dilutional vs primary * PLt 99, today 75 droping * Repeat CBC , daily * # Acute blood loss , anemia 2/2 hematuria likely 2/2 kidney stone vs sever sepsis vs iatrogenic(unlikely) * H/H stable * started one day after changing the catheter * monitor clinically * repeat CBC daily * Transfuse as needed to keep Hgb >8 * Iron studies: with mixed anemia of chronic disease and iron def anemia. will increase Fe sulfate to TID dosing. * F/U UA and urine culture * f/u urologist recommendations * Mark Mckeon per urologist # constipation, resolved * continue Miralax 17 g daily , stop if develop diarrhea * # Hypomagnesemea : Resolved #hypophosphatemia: neutraphos # HTN * BP today 123/78 * monitor BP * continue home meds : Amlodipin 10 mg PO daily, Metoprololm (lepressor ) 50 mg PO BID . * will hold if BP drop below 110/80 # Diabetes , Chronic , uncontrolled * HGA1C 10.8 * Insuline sliding scale protocol * ACHS * hold metformin * increase levemir to 12 units BID * Diabetic diet # CAD , S/p Stent , chronic * Continue home meds Lepitor 40 PO HS * Monitor clinically # HLD * continue home meds , lipitor 40 PO HS * F/U Lipid panel as out patient # FEN * F: On no fluids * E : WNL * N: low Na diet , diabetic diet # Proph * GI: Protonix 40 mg Po daily * DVT : Scds, Start Heparin SQ TID , H/H are stable # Dispo * Admit to med surg for sever sepsis * planning pending abx duration from ID. possible D/C tomorrow Case was discussed with the attending physician and the medical team Praany Silva MD PGY1 Visit type - Emergency Visit Emergency Visit: Yes ED Registration Date: 03/02/17 Care time: The patient presented to the Emergency Department on the above date and was hospitalized for further evaluation of their emergent condition. - New Patient This patient is new to me today: No - Critical Care Critical Care patient: No - Discharge Referral Referred to [facility] Med P.C.: No
[2017-03-06 08:07] LABS: SERUM IRON 12 ug/dL (38-169); TOTAL IRON BINDING CAPACITY 197 ug/dL (250-450); UIBC 185 ug/dL (111-343)
[2017-03-06 08:26] LABS: MCHC 33.2 g/dl (32.0-35.9); MEAN CELL VOLUME 81.1 fl (80-96); PLATELET COUNT 92 K/MM3 (134-434); RDW 14.9 % (11.9-15.9); WHITE BLOOD COUNT 7.5 K/mm3 (4.0-10.0)
[2017-03-06] MEDS ORDERED: INSULIN DETEMIR 100 UNITS/ML MDV SQ ONE (09:05)
--- NOTE | 2017-03-06 09:41 | PN ---
Teaching Attending Note Name of Resident: Pranay Silva ATTENDING PHYSICIAN STATEMENT I saw and evaluated the patient. I reviewed the resident's note and discussed the case with the resident. I agree with the resident's findings and plan as documented. SUBJECTIVE:asymptomatic. denies CP, SOB, fever, chills, N/V/C/D OBJECTIVE: Last Vital Signs Temp Pulse Resp BP Pulse Ox 98.5 F 81 22 123/78 98 03/06/17 06:00 03/06/17 06:00 03/06/17 06:00 03/06/17 06:00 03/05/17 21:00 ASSESSMENT AND PLAN: 66yo M with extensive PMH including chronic valero catheter and recurrent ESBL UTI presented to the ER with hematuria and sepsis 1. Severe sepsis due to UTI and bacteremia- afebrile >24H. clinically improved. repeat BCx with NGTD. on meropenem day 5. will d/w ID about abx duration and possible PICC line placement. ID on board. f/u Cx 2. Acute blood loss anemia- due to hematuria which has now resolved. valero removed. no reports of hematuria. Hgb stable. Iron studies with mixed anemia of chronic disease and iron def anemia. will increase Fe to TID dosing. transfuse as necessary to maintain Hgb >8. 3. DM-A1c 10.8. uncontrolled. increase levemir to 12 units BID. titrate to optimize control. cont diabetic diet. iss. 4. HTN- controlled. cont norvasc 5. hypophosphatemia- resolved 6. Hypomagenesmeia- resolved 7. DVT ppx- hep sq 8. d/c planning pending abx duration from ID. likely tomorrow
[2017-03-06] MEDS: METOPROLOL TARTRATE 50 MG TABLET (FP) PO SCH ×2 (09:50→21:51)
[2017-03-06] MEDS: PANTOPRAZOLE 40 MG TABLET (FP) PO SCH (09:51)
[2017-03-06] MEDS: amLODIPine BESYLATE 10 MG TABLET (FP) PO SCH (09:51)
[2017-03-06] MEDS: MECLIZINE HCL 25 MG TABLET (FP) PO SCH ×2 (09:51→21:52)
[2017-03-06] MEDS: POLYETHYLENE GLYCOL 3350 119 GM BTL PO SCH (09:51)
[2017-03-06] MEDS: INSULIN DETEMIR 100 UNITS/ML MDV SQ SCH ×2 (09:52→21:53)
--- NOTE | 2017-03-06 12:06 | CONS ---
DATE OF CONSULTATION: DATE OF DICTATION: 03/05/2017 The patient is a 66-year-old male seen in my office on Tuesday. He has history of recurrent urinary tract infections. The patient is hypertensive, diabetic, dyslipidemic. He has coronary artery disease and has had 2 MIs in the past. He has also undergone a radical prostatectomy for carcinoma of the prostate several years ago. Patient also has an inflatable Coloplast penile prosthesis. He was in urinary retention recently and a Preciado catheter was placed for 3 days. On Tuesday, on March 03, 2017, the Preciado was removed. The patient was seen in the emergency room with fever, chills, and inability to void. He also noticed blood coming out of the meatus. He denies any nausea or vomiting. He denies any diarrhea. He complains of epigastric pain due to GERD. Patient's white count was 13,300, BUN 17, creatinine 1.3. In the emergency room, patient was found to be in sepsis secondary to complicated urinary tract infection. Because of tachycardia of 103, a white count of 13.3, a lactic acid of 2.5, and chills, patient was started on IV meropenem and was given IV fluids. Presently the patient is voiding better, Preciado has been removed, denies any chills or fever. His T-max was 98.8, blood pressure 114/71. His voiding is averaging 100 mL an hour. Urine is clear. The urine culture on admission grew out E coli. Blood culture also grew out E coli. Patient is presently afebrile and he is voiding well. The plan is to continue with antibiotics and repeating his blood and urine cultures. Patient will also need a renal and pelvic ultrasound to rule out any upper tract disease. Will follow with you. Omar [id number]
[2017-03-06] MEDS: FERROUS SO4 325 MG TABLET (FP) PO SCH ×2 (14:08→21:51)
--- NOTE | 2017-03-06 14:50 | PN ---
Progress Note, Physician History of Present Illness: no fevers for last 24 hrs patient feeling well - Current Medication List Current Medications: Active Medications Acetaminophen (Tylenol -) 650 mg PO Q6H PRN PRN Reason: FEVER OR PAIN Last Admin: 03/04/17 09:28 Dose: 650 mg Amlodipine Besylate (Norvasc -) 10 mg PO DAILY [facility] Last Admin: 03/06/17 09:51 Dose: 10 mg Atorvastatin Calcium (Lipitor -) 40 mg PO HS [facility] Last Admin: 03/05/17 21:23 Dose: 40 mg Ferrous Sulfate (Feosol -) 325 mg PO TID [facility] Last Admin: 03/06/17 14:08 Dose: 325 mg Gabapentin (Neurontin -) 300 mg PO HS [facility] Last Admin: 03/05/17 21:23 Dose: 300 mg Heparin Sodium (Porcine) (Heparin -) 5,000 unit SQ TID [facility] Last Admin: 03/06/17 14:08 Dose: 5,000 unit Meropenem 1 gm/ Dextrose 100 mls @ 200 mls/hr IVPB Q8H-IV [facility] PRN Reason: Protocol Last Admin: 03/06/17 09:52 Dose: 200 mls/hr Insulin Aspart (Novolog Vial Sliding Scale -) 1 vial SQ ACHS [facility] PRN Reason: Protocol Last Admin: 03/06/17 11:36 Dose: 6 unit Insulin Detemir (Levemir Vial) 12 units SQ BID [facility] Last Admin: 03/06/17 09:52 Dose: 12 units Meclizine HCl (Antivert -) 25 mg PO BID [facility] Last Admin: 03/06/17 09:51 Dose: 25 mg Metoprolol Tartrate (Lopressor -) 50 mg PO BID [facility] Last Admin: 03/06/17 09:50 Dose: 50 mg Pantoprazole Sodium (Protonix -) 40 mg PO DAILY [facility] Last Admin: 03/06/17 09:51 Dose: 40 mg Polyethylene Glycol (Miralax (For Daily Use) -) 17 gm PO DAILY [facility] Last Admin: 03/06/17 09:51 Dose: 17 gm - Objective Vital Signs: Vital Signs Temperature 98.4 F 03/06/17 10:00 Pulse Rate 83 03/06/17 10:00 Respiratory Rate 22 03/06/17 10:00 Blood Pressure 140/87 03/06/17 10:00 O2 Sat by Pulse Oximetry (%) 98 03/06/17 09:00 Constitutional: Yes: No Distress, Calm Cardiovascular: Yes: Regular Rate and Rhythm Respiratory: Yes: Regular, CTA Bilaterally Gastrointestinal: Yes: Normal Bowel Sounds, Soft Musculoskeletal: Yes: WNL Extremities: Yes: WNL Neurological: Yes: Alert, Oriented Psychiatric: Yes: Alert, Oriented Labs: CBC, BMP 03/06/17 06:00 03/04/17 07:30 INR, PTT INR 1.18 (0.82-1.09) H 03/03/17 06:30 Assessment/Plan # sepsis # thrombocytopenia # Acute blood loss , # HTN uti gm negative bacteremia pyelo plan continue abx repeat u/s noted improvement in fluid around the kidney patient will need 3 weeks of abx i will down grade him to ertapenam tomorrow
[2017-03-06] MEDS ORDERED: PICC LINE 8 ML FLUSH PROTOCOL IVPUSH PRN (17:16)
[2017-03-06] MEDS: GABAPENTIN 300 MG CAPSULE (FP) PO SCH (21:51)
[2017-03-06] MEDS: ATORVASTATIN CA 40 MG TABLET (FP) PO SCH (21:52)
[2017-03-07] MEDS ORDERED: PT OWN MED DRAWER 7, Y5N ONE ×2 (00:31→08:53)
[2017-03-07] MEDS: MEROPENEM 1 GM in DEXTROSE 5%-WATER - 100 ML IVPB SCH ×2 (01:28→08:59)
[2017-03-07] MEDS: FERROUS SO4 325 MG TABLET (FP) PO SCH ×2 (06:04→15:54)
[2017-03-07] MEDS: HEPARIN NA (PORCINE) 5,000 UNITS/ML 1ML VIAL SQ SCH ×2 (06:04→15:54)
[2017-03-07] MEDS: INSULIN SLIDING SCALE (NOVOLOG) 1 VIAL SQ SCH ×3 (06:28→15:56)
[2017-03-07] MEDS ORDERED: INSULIN DETEMIR 100 UNITS/ML MDV SQ SCH (08:01)
[2017-03-07] MEDS ORDERED: INSULIN DETEMIR 100 UNITS/ML MDV SQ ONE (08:30)
[2017-03-07] MEDS: MECLIZINE HCL 25 MG TABLET (FP) PO SCH (08:59)
[2017-03-07] MEDS: METOPROLOL TARTRATE 50 MG TABLET (FP) PO SCH (08:59)
[2017-03-07] MEDS: amLODIPine BESYLATE 10 MG TABLET (FP) PO SCH (08:59)
[2017-03-07] MEDS: PANTOPRAZOLE 40 MG TABLET (FP) PO SCH (08:59)
[2017-03-07] MEDS: POLYETHYLENE GLYCOL 3350 119 GM BTL PO SCH (09:09)
[2017-03-07] MEDS ORDERED: INSULIN (NOVOLOG) ASPART 100 UNITS/ML 10ML VIAL ONE ×2 (10:33→15:49)
--- NOTE | 2017-03-07 13:32 | PN ---
Progress Note, Physician History of Present Illness: doing well no complaints - Current Medication List Current Medications: Active Medications Acetaminophen (Tylenol -) 650 mg PO Q6H PRN PRN Reason: FEVER OR PAIN Last Admin: 03/04/17 09:28 Dose: 650 mg Amlodipine Besylate (Norvasc -) 10 mg PO DAILY [facility] Last Admin: 03/07/17 08:59 Dose: 10 mg Atorvastatin Calcium (Lipitor -) 40 mg PO HS [facility] Last Admin: 03/06/17 21:52 Dose: 40 mg Ferrous Sulfate (Feosol -) 325 mg PO TID [facility] Last Admin: 03/07/17 06:04 Dose: 325 mg Gabapentin (Neurontin -) 300 mg PO HS [facility] Last Admin: 03/06/17 21:51 Dose: 300 mg Heparin Sodium (Porcine) (Heparin -) 5,000 unit SQ TID [facility] Last Admin: 03/07/17 06:04 Dose: 5,000 unit IV Flush (Picc Line Flush) 8 ml IVPUSH PRN PRN PRN Reason: Protocol Meropenem 1 gm/ Dextrose 100 mls @ 200 mls/hr IVPB Q8H-IV [facility] PRN Reason: Protocol Last Admin: 03/07/17 08:59 Dose: 200 mls/hr Insulin Aspart (Novolog Vial Sliding Scale -) 1 vial SQ ACHS [facility] PRN Reason: Protocol Last Admin: 03/07/17 10:38 Dose: 10 unit Meclizine HCl (Antivert -) 25 mg PO BID [facility] Last Admin: 03/07/17 08:59 Dose: 25 mg Metoprolol Tartrate (Lopressor -) 50 mg PO BID [facility] Last Admin: 03/07/17 08:59 Dose: 50 mg Pantoprazole Sodium (Protonix -) 40 mg PO DAILY [facility] Last Admin: 03/07/17 08:59 Dose: 40 mg Polyethylene Glycol (Miralax (For Daily Use) -) 17 gm PO DAILY [facility] Last Admin: 03/07/17 09:09 Dose: 17 gm - Objective Vital Signs: Vital Signs Temperature 98.1 F 03/07/17 05:00 Pulse Rate 72 03/07/17 05:00 Respiratory Rate 18 03/06/17 23:00 Blood Pressure 127/82 03/07/17 05:00 O2 Sat by Pulse Oximetry (%) 98 03/06/17 21:00 Constitutional: Yes: No Distress, Calm Cardiovascular: Yes: Regular Rate and Rhythm Respiratory: Yes: Regular, CTA Bilaterally Gastrointestinal: Yes: Normal Bowel Sounds, Soft Musculoskeletal: Yes: WNL Extremities: Yes: WNL Neurological: Yes: Alert, Oriented Psychiatric: Yes: Alert, Oriented Labs: CBC, BMP 03/06/17 06:00 03/04/17 07:30 INR, PTT INR 1.18 (0.82-1.09) H 03/03/17 06:30 Assessment/Plan # sepsis # thrombocytopenia # Acute blood loss , # HTN uti gm negative bacteremia pyelo plan will change abx to ertapenam patient to receive another 2 weeks of abx
[2017-03-07] MEDS ORDERED: ERTAPENEM SODIUM 1 GM in SODIUM CHLORIDE 50 ML IVPB SCH (13:45)
--- NOTE | 2017-03-07 14:20 | DS ---
Physical Exam: SUBJECTIVE: Patient seen and examined at bed side. He is doing well, No acute events over night. He denies any fever, chills, Hematuria, N/V/D/C. He denies nay urinary symptoms or abdominal pain. OBJECTIVE: Vital Signs Period Temp Pulse Resp BP Sys/Grissom Pulse Ox Last 24 Hr 97.7 F-98.4 F 69-72 18-74 127-145/82-85 98 PHYSICAL EXAM GENERAL: The patient is awake, alert, and fully oriented, in no acute distress. HEAD: Normal with no signs of trauma. EYES: PERRL, sclera anicteric, conjunctiva clear. ENT: moist mucous membranes. NECK: Trachea midline, full range of motion, supple. LUNGS: Breath sounds equal, clear to auscultation bilaterally, no wheezes, no crackles, no accessory muscle use. HEART: Regular rate and rhythm, S1, S2 without murmur, rub or gallop. ABDOMEN: Soft, nontender, nondistended, normoactive bowel sounds, no guarding, no rebound, no hepatosplenomegaly, no masses. EXTREMITIES: 2+ pulses, warm, well-perfused, no edema. NEUROLOGICAL: Normal speech, gait not observed. PSYCH: Normal mood, normal affect. SKIN: Warm, dry, normal turgor, no rashes or lesions noted. LABS Laboratory Results - last 24 hr 03/06/17 03/06/17 03/07/17 17:23 21:49 06:01 POC Glucometer 344 284 175 03/07/17 03/07/17 08:49 10:37 POC Glucometer 320 372 CBC, BMP 03/06/17 06:00 03/04/17 07:30 HOSPITAL COURSE: Date of Admission:03/02/17 Date of Discharge: 03/07/17 66 yo M with significant PMH of HTN, MS x2, HLD, uncontrolled diabetes, CAD s/p stent, kidney stones,recurrent ESBL UTI, s/p radical prostatectomy presents to ED with blood in his urine and pain in the groin area. His urologist changed his catheter 2 days ago and he developed the hematuria the day after. in The ED patient was found to have sever sepsis secondary to complicated UTI and was admitted to [facility] for further evaluation. patient was treated for his Urinary tract infection and bacterimia with antibiotics (Meropenem IV )5 days and he will need to continue with Ertapenim IV as out patient Per ID . Preciado catheter was Dc by and nirav t does not have any hematuria after that. His renal US shows improved hydronephrosis with stent in place. Patient was also found to have thrompocytopenia likely secondary to delutional vs sepsis that was monitored and was stable on discharged. He was found to have anemia due to acute blood loss plus the chronic disease and his FE sulfate was increased to TID . Patient diabetes was uncontrolled with HgA1c 10.8 , we increased her insuline to 20 levemir in the morning and 12 at night. in addition to the sliding scale. patient was educated about diabetic diet and medication compliance. during the hospital course he develop hypomagnesimia and hypokalemia which was replinished to normal levels. Patient will continue his home meds for HTN, HLD, CAD . Patient will use stool softeners for constipations Patient will follow up with aquatic biologist , PCP and the infectious disease doctor . Patient will receive PICC line for IV antibiotics after discharge and will follow the instructions from the company for IV antibiotics. Patient will take his medicine as prescribed. Patient informed to return to ER if he develop fever, chills , hematuria or his symptoms worsen. Minutes to complete discharge: 30 Discharge Summary Reason For Visit: DIABETES UTI HEMATURIA Current Active Problems Diabetes (Acute) Hematuria (Acute) UTI (urinary tract infection) (Acute) Condition: Stable - Instructions Diet, Activity, Other Instructions: You were admitted and treated for infection in your bladder and your blood. You will need 15 more days of intravenous antibiotics. Use instruction provided by [employer] to take Ertapenem 1g daily You sugars were very controlled and have been adjusted. take Levemir 20 units in the morning and 12 units at bedtime. Continue to monitor your sugars in the morning and before each meal. document your readings and bring this to your primary care doctor, you will continue to require adjustment to your insulin regimen. Ensure your having a bowel movement daily. Take stool softeners and miralax as needed. Please resume all your other medicine as prescribed Please follow with your primary care doctor in 1 week. Please follow up with within a week. Please if you develp any fever, chills,or your notice any blood in urine Or your symptoms worsen call or come to the ER. Referrals: Haider Garrido MD [Staff Physician] - Shine Langley MD [Primary Care Provider] - Disposition: HOME - Home Medications Comprehensive Discharge Medication List: Ambulatory Orders Amlodipine Besylate [Norvasc -] 10 mg PO DAILY 01/22/15 Ferrous Sulfate [Feosol] 325 mg PO BID 01/22/15 Gabapentin [Neurontin -] 300 mg PO HS 11/22/15 Metoprolol Tartrate [Lopressor -] 50 mg PO BID 11/22/15 Atorvastatin Ca [Lipitor] 40 mg PO HS 10/02/16 Insulin Sliding Scale [Novolog Vial Sliding Scale -] 1 vial SQ ACHS #1 units 03/13 Ferrous Sulfate 325 mg PO DAILY 03/02/17 Ibuprofen 800 mg PO Q6H PRN 03/02/17 Insulin (Levemir) [Levemir Vial] 10 units SQ ACLD 03/02/17 Insulin (Levemir) [Levemir Vial] 20 units SQ AM 03/02/17 Meclizine HCl [Antivert -] 2 tab PO BID 03/02/17 Omeprazole 40 mg PO DAILY 03/02/17 Tramadol HCl [Ultram] 50 mg PO TID MDD 3 03/02/17 This patient is new to me today: No Emergency Visit: Yes ED Registration Date: 03/02/17 Care time: The patient presented to the Emergency Department on the above date and was hospitalized for further evaluation of their emergent condition. Critical Care patient: No - Discharge Referral Referred to [facility] Med P.C.: No
--- NOTE | 2017-03-07 14:50 | PN ---
Teaching Attending Note Name of Resident: Pranay Silva ATTENDING PHYSICIAN STATEMENT I saw and evaluated the patient. I reviewed the resident's note and discussed the case with the resident. I agree with the resident's findings and plan as documented. SUBJECTIVE:asymptomatic. denies CP, SOB, fever, chills, abdominal pain, hematuria, N/V/C/D OBJECTIVE: Last Vital Signs Temp Pulse Resp BP Pulse Ox 98.1 F 72 18 127/82 98 03/07/17 05:00 03/07/17 05:00 03/06/17 23:00 03/07/17 05:00 03/06/17 21:00 General NAD Abdomen soft NT/ND ASSESSMENT AND PLAN: 66yo M with extensive PMH including chronic valero catheter and recurrent ESBL UTI presented to the ER with hematuria and sepsis 1. Severe sepsis due to UTI and bacteremia- afebrile. clinically improved. repeat BCx with NGTD. on meropenem day 6. PICC line placement today for 15 more days of IV abx. will need ERtapenem 1g daily [id number]. will d/w ID about abx duration and possible PICC line placement. ID on board. f/u Cx 2. Acute blood loss anemia- due to hematuria which has now resolved. valero removed. no reports of hematuria. Hgb stable. Iron studies with mixed anemia of chronic disease and iron def anemia. will increase Fe to TID dosing. transfuse as necessary to maintain Hgb >8. 3. DM-A1c 10.8. uncontrolled. we will re-start levemir 20 units AM and cont levemir 12 units HS. stressed importance of medication compliance and follow up with PMD for further adjustment. advised to record sugars and bring to doctors. titrate to optimize control. cont diabetic diet. iss. 4. HTN- controlled. cont norvasc 5. hypophosphatemia- resolved 6. Hypomagenesmeia- resolved 7. DVT ppx- hep sq 8. PICC line placement today and d/c once abx can be secured.
[2017-03-07 15:47] VITALS: BP 124/80; PULSE 78; TEMP 98.8
== END 2017-03-07 18:12 | disposition home or self-care (01) | DRG 698 ==
LOC: JER 03:00 → JERBED 06:09 → J6S 21:59
PROVIDERS: ADMIT Internal Medicine; ATTEND Internal Medicine
PROC: 02HV33Z Insertion of Infusion Device into Superior Vena Cava, Percutaneous Approach (ICD-10-PCS; principal; 2017-03-07)
PROC: B548ZZA Ultrasonography of Superior Vena Cava, Guidance (ICD-10-PCS; 2017-03-07)
PROC: B518ZZA Fluoroscopy of Superior Vena Cava, Guidance (ICD-10-PCS; 2017-03-07)
DX: T83.511A Infection and inflammatory reaction due to indwelling urethral catheter, initial encounter (principal); A41.50 Gram-negative sepsis, unspecified; R65.20 Severe sepsis without septic shock; N02.9 Recurrent and persistent hematuria with unspecified morphologic changes; D62 Acute posthemorrhagic anemia; N13.30 Unspecified hydronephrosis; N39.0 Urinary tract infection, site not specified; E11.65 Type 2 diabetes mellitus with hyperglycemia; I10 Essential (primary) hypertension; I25.2 Old myocardial infarction; E78.00 Pure hypercholesterolemia, unspecified; I25.10 Atherosclerotic heart disease of native coronary artery without angina pectoris; Z79.4 Long term (current) use of insulin; Z85.46 Personal history of malignant neoplasm of prostate; Z90.79 Acquired absence of other genital organ(s); Z95.5 Presence of coronary angioplasty implant and graft; Z87.891 Personal history of nicotine dependence; K21.9 Gastro-esophageal reflux disease without esophagitis; I44.0 Atrioventricular block, first degree; D69.6 Thrombocytopenia, unspecified; E83.39 Other disorders of phosphorus metabolism; E83.42 Hypomagnesemia; K59.00 Constipation, unspecified; D63.8 Anemia in other chronic diseases classified elsewhere
CPT/HCPCS: 36415; 36569; 71010-TC; 76775-TC; 76856-TC; 77001-TC; 80048; 80053; 81003; 81015; 82728; 82803; 83036; 83540; 83550; 83605; 83735; 84100; 84484; 85025; 85027; 85610; 85730; 86850; 86900; 86901; 87040; 87086; 87186; 93005; 93010; 99285-25; C1751; J1644

== ENCOUNTER 2017-05-02 07:29 | Day surgery (SDC) | payer MEDICARE, OTHER ==
[2017-04-28 15:52] VITALS: BMI 29.2
[2017-05-02] MEDS ORDERED: MIDAZOLAM HCL 2 MG/2 ML SINGLE DOSE VIAL ONE (08:47)
[2017-05-02] MEDS ORDERED: SUCCINYLCHOLINE CHLORIDE 200 MG/10 ML VIAL ONE (09:03)
[2017-05-02] MEDS ORDERED: PROPOFOL 20 ML ONE ×2 (09:03)
--- NOTE | 2017-05-02 09:47 | OP ---
Operative Note - Note: Operative Date: 05/02/17 Pre-Operative Diagnosis: left hydronephrosis Operation: cystoscopy/left retrograde pyelogram/left ureteral dilation/left ureteroscopy/left ureteral stent exchange Findings: Grade 5/5 left hydroureteronephrosis secondary to left distal ureteral stricture Post-Operative Diagnosis: Same as Pre-op Surgeon: Jacques Loredo Anesthesia: General Specimens Removed: left ureteral stent Drains & Tubes with Location: 6 fr/24 cm left ureteral stent Operative Report Dictated: Yes
[2017-05-02] MEDS ORDERED: ONDANSETRON 4 MG/2 ML VIAL IVPUSH PRN (10:14)
[2017-05-02 10:56] VITALS: TEMP 97.5
[2017-05-02 11:09] VITALS: PULSE 70
[2017-05-02 12:25] VITALS: BP 130/80
--- NOTE | 2017-05-02 12:44 | OP ---
DATE OF OPERATION: 05/02/2017 PREOPERATIVE DIAGNOSIS: Left hydronephrosis with left ureteral stent status post radical prostatectomy status post urethral sling status post inflatable penile prosthesis. POSTOPERATIVE DIAGNOSIS: High-grade left hydroureteronephrosis secondary to left distal urethral stricture. PROCEDURE: Cystoscopy, left retrograde pyelogram, left ureteral dilation, left ureteroscopy, left ureteral stent exchange. ATTENDING SURGEON: Davie Epstein MD ANESTHESIA: General. DESCRIPTION OF PROCEDURE: The patient was brought in the operating room and placed in the supine position on the operating room table. The patient was given general anesthesia and Levaquin preoperatively. At this point, the patient was placed in a dorsal lithotomy position. The patient had complete incontinence noted. At this point, the patient was prepped and draped in a usual sterile manner. A cystoscopy was performed, and the left ureteral stent was identified. The stent was removed. Attempts at passing a left ureteral wire proximally through a cystoscope were unsuccessful. Ureteroscopy was then performed, and with difficulty, a left ureteral wire was placed. Retrograde pyelogram showed good position of the wire. A high-grade hydroureteronephrosis, which was a 5/5, was noted. The ureteroscope could not pass the distal left ureteral stricture. Dilatation was performed. With ureteral dilatation, the ureteroscopy was performed. No evidence of stone or neoplasm at the site of the strictured area is noted. With this accomplished, a 6-Thai 24-cm stent was placed over the wire utilizing Seldinger technique. No complications were noted. DISPOSITION: Patient to recovery room. DAVIE EPSTEIN M.D. [id number]
--- NOTE | 2017-05-04 11:23 | PATH ---
Surgical Pathology Report Patient Name: BRYSON LAWRENCE Med. Rec. 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 Electronically Signed Kamron Narayan M.D. Gross Description Received fresh labeled "removed stent" is a 37 cm in length yellow, coiled portion of tubing, consistent with a ureteral stent. No soft tissue is present. No sections are submitted, gross only. 05/03/201705/03/2017
== END 2017-05-02 12:15 | disposition home or self-care (01) ==
LOC: JASU-SURG 07:29
PROVIDERS: ATTEND Urology
PROC: 0T778DZ Dilation of Left Ureter with Intraluminal Device, Via Natural or Artificial Opening Endoscopic (ICD-10-PCS; principal; 2017-05-02 09:00)
PROC: 0TP98DZ Removal of Intraluminal Device from Ureter, Via Natural or Artificial Opening Endoscopic (ICD-10-PCS; 2017-05-02 09:00)
DX: N13.1 Hydronephrosis with ureteral stricture, not elsewhere classified (principal); N35.9 Urethral stricture, unspecified
CPT/HCPCS: 76000-TC; 88300-TC; 94760

== ENCOUNTER 2017-05-17 01:49 | Emergency (ER) | payer MEDICARE, OTHER ==
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
[2017-05-17 02:24] VITALS: BP 154/94; PULSE 74; TEMP 98.8; BMI 29.2
[2017-05-17] MEDS ORDERED: methylPREDNISolone NA SUCC 125 MG/2 ML VIAL IVPUSH ONE (02:27)
[2017-05-17] MEDS ORDERED: ALBUTEROL SO4 2.5/IPRATROPIUM 0.5 INH SOL 3 ML VIAL.NEB. NEB ONE ×2 (02:28→02:37)
[2017-05-17] MEDS ORDERED: methylPREDNISolone NA SUCC 125 MG/2 ML VIAL ONE (02:37)
[2017-05-17] MEDS ORDERED: AZITHROMYCIN IVPB 500 MG in DEXTROSE 5%-WATER - 250 ML IVPB ONE (02:49)
[2017-05-17 02:57] LABS: BASOPHIL 0.9 % (0-2.0); MCH 26.2 pg (25.7-33.7); MCHC 32.2 g/dl (32.0-35.9); MEAN CELL VOLUME 81.3 fl (80-96); MEAN PLT VOLUME 10.6 fl (7.5-11.1); NEUTROPHILS 48.9 % (42.8-82.8); PLATELET COUNT 124 K/MM3 (134-434); RDW 16.1 % (11.9-15.9); WHITE BLOOD COUNT 8.4 K/mm3 (4.0-10.0)
[2017-05-17 03:22] LABS: ALK PHOS 124 U/L (45-117); ANION GAP 8 (8-16); BILIRUBIN,TOTAL 0.1 mg/dL (0.2-1.0); CALCIUM 8.1 mg/dL (8.5-10.1); CO2 25 mmol/L (21-32); CREATININE 1.3 mg/dL (0.7-1.3); GLUCOSE,RANDOM 170 mg/dL (74-106); SGOT/AST 14 U/L (15-37); SGPT/ALT 22 U/L (12-78); TOT PROT 7.3 g/dl (6.4-8.2)
[2017-05-17] MEDS ORDERED: CEFTRIAXONE 1 GM/50 ML BAG ONE (03:54)
[2017-05-17] MEDS ORDERED: AZITHROMYCIN IVPB 250 ML IVPB ONE (04:06)
[2017-05-17 04:12] LABS: URINE APPEARANCE SLCLOUDY; URINE BILIRUBIN NEGATIVE (NEGATIVE); URINE BLOOD 1+ (NEGATIVE); URINE COLOR LTYELLOW; URINE GLUCOSE (UA) NEGATIVE (NEGATIVE); URINE KETONE NEGATIVE (NEGATIVE); URINE NITRITE NEGATIVE (NEGATIVE); URINE UROBILINOGEN NEGATIVE mg/dL (0.2-1.0)
[2017-05-17 04:28] LABS: URINE PROTEIN 2+ (NEGATIVE)
[2017-05-17 04:29] LABS: URINE BACTERIA RARE /hpf (NONE SEEN); URINE MUCUS RARE; URINE RBC 2 /hpf (0-3); URINE WBC 38 /hpf (3-5)
[2017-05-17 04:32] LABS: INR 0.97 (0.82-1.09)
[2017-05-17 09:08] LABS: URINE LEUK ESTERASE 2+ (NEGATIVE)
--- NOTE | 2017-05-17 18:02 | EKG ---
Test Reason : Blood Pressure : / mmHG Vent. Rate : 067 BPM Atrial Rate : 067 BPM P-R Int : 216 ms QRS Dur : 088 ms QT Int : 400 ms P-R-T Axes : 069 020 038 degrees QTc Int : 422 ms SINUS RHYTHM WITH 1ST DEGREE A-V BLOCK POSSIBLE LEFT ATRIAL ENLARGEMENT SEPTAL INFARCT (CITED ON OR BEFORE 14-OCT-2016) ABNORMAL ECG WHEN COMPARED WITH ECG OF 02-MAR-2017 04:56, QUESTIONABLE CHANGE IN INITIAL FORCES OF ANTERIOR LEADS REPEAT EKG IF CLINICALLY INDICATED Confirmed by TACOS DE LA ROSA MD ([id number]) on 05/17/2017 6:02:19 PM Referred By: Confirmed By:TACOS DE LA ROSA MD
== END 2017-05-17 04:51 | disposition home or self-care (01) ==
LOC: JER 01:49
PROC: 3E0F7GC Introduction of Other Therapeutic Substance into Respiratory Tract, Via Natural or Artificial Opening (ICD-10-PCS; principal; 2017-05-17)
PROC: 3E03329 Introduction of Other Anti-infective into Peripheral Vein, Percutaneous Approach (ICD-10-PCS; 2017-05-17)
PROC: 3E0333Z Introduction of Anti-inflammatory into Peripheral Vein, Percutaneous Approach (ICD-10-PCS; 2017-05-17)
PROC: 3E03329 Introduction of Other Anti-infective into Peripheral Vein, Percutaneous Approach (ICD-10-PCS; 2017-05-17)
DX: J18.9 Pneumonia, unspecified organism (principal); I25.10 Atherosclerotic heart disease of native coronary artery without angina pectoris; I10 Essential (primary) hypertension; F17.210 Nicotine dependence, cigarettes, uncomplicated; Z95.5 Presence of coronary angioplasty implant and graft; E78.00 Pure hypercholesterolemia, unspecified; E11.9 Type 2 diabetes mellitus without complications; Z79.4 Long term (current) use of insulin; D64.9 Anemia, unspecified; I25.2 Old myocardial infarction; Z85.46 Personal history of malignant neoplasm of prostate
CPT/HCPCS: 36415; 71010-TC; 80053; 81003; 81015; 84484; 85025; 85610; 87804; 93005; 93010; 99281-25

== ENCOUNTER 2017-08-08 06:14 | Day surgery (SDC) | payer OTHER ==
[2017-08-05 15:47] VITALS: BMI 29.2
[2017-08-08] MEDS ORDERED: IOHEXOL 300 MG/ML INFUS..BTL IJ ONE ×2 (09:44)
--- NOTE | 2017-08-08 10:34 | OP ---
Operative Note - Note: Operative Date: 08/08/17 Pre-Operative Diagnosis: acute renal insufficiency/distal ureteral stricture on left Operation: cystoscopy/bilateral retrograde pyelogram/left ureteroscopy with balloon dilation of distal ureteral stricture/left ureteral stent exchange Findings: high grade 4 cm distal left ureteral stricture with grade 5/5 hydroureteronephrosis Surgeon: Jacques Loredo Anesthesia: General Specimens Removed: 6fr/24 cm left ureteral stent Drains & Tubes with Location: 8 fr/24 cm left ureteral stent Operative Report Dictated: Yes
[2017-08-08 11:33] VITALS: TEMP 97.6
[2017-08-08] MEDS ORDERED: oxyCODONE HCL 5 MG TABLET PO PRN ×2 (11:46)
[2017-08-08] MEDS ORDERED: ONDANSETRON 4 MG/2 ML VIAL IVPUSH PRN (11:46)
[2017-08-08] MEDS ORDERED: LACTATED RINGERS SOLUTION 1,000 ML IV SCH (12:00)
[2017-08-08 14:06] VITALS: BP 140/90; PULSE 85
--- NOTE | 2017-08-08 17:58 | OP ---
DATE OF OPERATION: 08/08/2017 PREOPERATIVE DIAGNOSIS: Acute renal insufficiency with history of distal ureteral stricture. POSTOPERATIVE DIAGNOSIS: Acute renal insufficiency with history of distal ureteral stricture. Increased distal ureteral stricture with grade 5/5 hydroureteral nephrosis. PROCEDURE: Cystoscopy, bilateral retrograde pyelogram, left ureteroscopy with balloon dilation of left ureteral stricture and left ureteral stent exchange. ATTENDING SURGEON: Davie Loredo M.D. ANESTHESIA: General. ATTENDING: Davie Loredo M.D. ANESTHESIA: Fractional. OPERATION: Patient was brought in the operating room, placed in a supine position on the operating room table. The patient has a history of a high-grade distal left ureteral stricture. The patient has developed increased hydroureteronephrosis on sonogram. The patient's creatinine has also increased. This is consistent with acute renal insufficiency. The patient is brought in the emergency room and placed in supine position on the operating room table. Anesthesia and preoperative antibiotics are administered. The patient is given general anesthesia. The patient is then placed in a dorsal lithotomy position and prepped and draped in the usual sterile manner. Cystoscopy is performed, and the left ureteral stent is removed. Attempts at passing a right ureteral wire were unsuccessful. Ureteroscopy was performed, and with difficulty a wire was passed proximally. There was a severe distal ureteral stricture which did not allow passage of the ureteroscope. A retrograde pyelogram showed a grade 5/5 hydroureteronephrosis. At this point, balloon dilation of the distal right ureteral stricture. The stricture measured roughly 4 cm. A balloon dilator was utilized, and the stricture was dilated. Note at this point ureteroscopy was performed again, and there was opening up of the ureteral stricture. A retrograde pyelogram showed a high-grade hydroureteronephrosis. There was however, passage of the Hypaque material into the bladder following the dilation indicative of success in dilating the stricture. At this point it was decided to leave an 8-Andorran, 24-cm stent. This was a larger stent in order to help maintain the distal left ureteral opening. An 8-Andorran, 24-cm stent was placed on the left side utilizing the Seldinger technique. A right retrograde pyelogram showed no evidence of obstruction of the right side. Patient tolerated procedure very well. No complications were noted. DAVIE EPSTEIN M.D. [id number] MTDD
--- NOTE | 2017-08-09 08:34 | PATH ---
Surgical Pathology Report Patient Name: BRYSON LAWRENCE Med. Rec. 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 Electronically Signed Kamron Narayan M.D. Gross Description Received fresh labeled "old ureteral stent left," is a 35 cm in length yellow-green, coiled portion of tubing, consistent with a ureteral stent. No soft tissue is present. No sections are submitted, gross only. /08/08/201708/08/2017
== END 2017-08-08 13:40 | disposition home or self-care (01) ==
LOC: JASU-SURG 06:14
PROVIDERS: ATTEND Urology
PROC: 0T778DZ Dilation of Left Ureter with Intraluminal Device, Via Natural or Artificial Opening Endoscopic (ICD-10-PCS; principal; 2017-08-08 08:00)
PROC: 0T778ZZ Dilation of Left Ureter, Via Natural or Artificial Opening Endoscopic (ICD-10-PCS; 2017-08-08 08:00)
DX: N13.1 Hydronephrosis with ureteral stricture, not elsewhere classified (principal); N28.9 Disorder of kidney and ureter, unspecified; E11.9 Type 2 diabetes mellitus without complications; Z79.4 Long term (current) use of insulin
CPT/HCPCS: 76000-TC-FY; 82962; 88300-TC; 94760

== ENCOUNTER 2018-01-16 08:35 | Day surgery (SDC) | payer OTHER ==
[2018-01-16 09:24] VITALS: BMI 30.5
[2018-01-16] MEDS ORDERED: DESFLURANE GAS 240 ML BOTTLE IH ONE (12:16)
[2018-01-16] MEDS ORDERED: PROPOFOL 20 ML ONE (12:49)
[2018-01-16] MEDS ORDERED: LIDOCAINE HCL 1%, 10 MG/ML (20ML VIAL) ONE (12:51)
[2018-01-16] MEDS ORDERED: LACTATED RINGERS SOLUTION 1,000 ML IV SCH (14:00)
[2018-01-16 14:21] VITALS: PULSE 76; TEMP 98
--- NOTE | 2018-01-16 15:18 | OP ---
Operative Note - Note: Operative Date: 01/16/18 Pre-Operative Diagnosis: left ureteral stricture with grade 5/5 hydroureteronephrosis Operation: cystoscopy/left retrograde pyelogram/left ureteroscopy and dilation/ left ureteral stent exchange Findings: high grade left ureteral stricture Post-Operative Diagnosis: Same as Pre-op Surgeon: Jacques Loredo Anesthesia: General Specimens Removed: left ureteral stent Drains & Tubes with Location: 12/18 left ureteral stent
[2018-01-16 15:24] VITALS: BP 147/90
--- NOTE | 2018-01-16 20:48 | OP ---
DATE OF OPERATION: 01/16/2018 PREOPERATIVE DIAGNOSIS: Metastatic prostate cancer with left hydronephrosis secondary to metastatic disease. POSTOPERATIVE DIAGNOSIS: Metastatic prostate cancer with left hydronephrosis secondary to metastatic disease. PROCEDURE: Cystoscopy, left retrograde pyelogram, left ureteroscopy with dilation and left ureteral stent placement. ATTENDING: Jacques Chamberlain MD ANESTHESIA: General. DESCRIPTION OF OPERATION: The patient was brought in the operating room, placed in supine position on the operating room table. Anesthesia and preoperative antibiotics were administered at this point. The patient was placed in the dorsal lithotomy position and prepped and draped in the usual sterile manner. Cystoscopy was performed, and the left ureteral stent is seen. The left ureteral stent is removed. Attempts at passing a wire proximally were unsuccessful. With ureteroscopy performed, and the wire was passed through the ureteroscope into the kidney. A dense, high-grade, distal ureteral stricture was encountered. A second wire was utilized with the ureteroscope in order to use the wire as a guide and the ureteroscope as a dilation device. The distal ureter was dilated with the ureteroscopy under direct visualization. This allowed for access to the proximal ureter. At this point, the cystoscope and the second wire were removed. Utilizing the first wire, a 6-Khmer 24-cm stent was placed under cystoscopic visualization. The Seldinger technique was utilized. No complications were noted. The patient tolerated the procedure very well. The disposition of the patient was to the recovery room. Omar [id number]
--- NOTE | 2018-01-18 18:46 | PATH ---
Surgical Pathology Report Patient Name: BRYSON LAWRENCE Med. Rec. #: [id number] /Age/Gender: 1950 (Age: 67) / M Account: [id number] Location: [facility] Taken: 01/16/2018 Received: 01/17/2018 Reported: 01/18/2018 Physicians: Jacques Loredo Specimen(s) Received REMOVED STENT Clinical History Hydronephrosis with ureteral stricture Final Diagnosis URETERAL STENT, LEFT, REMOVAL: URETERAL STENT. MACROSCOPIC DIAGNOSIS. Electronically Signed Shayna Villavicencio M.D. Gross Description Received fresh labeled "removed stent," is a 39 cm in length blue-green, coiled portion of tubing, consistent with a ureteral stent. No soft tissue is present. No sections are submitted, gross only. /01/17/2018 saudi01/17/2018
== END 2018-01-16 15:39 | disposition home or self-care (01) ==
LOC: JASU-SURG 08:35
PROVIDERS: ATTEND Urology
PROC: 0T778DZ Dilation of Left Ureter with Intraluminal Device, Via Natural or Artificial Opening Endoscopic (ICD-10-PCS; principal; 2018-01-16 11:00)
PROC: BT1FYZZ Fluoroscopy of Left Kidney, Ureter and Bladder using Other Contrast (ICD-10-PCS; 2018-01-16 11:00)
DX: N13.39 Other hydronephrosis (principal); C79.82 Secondary malignant neoplasm of genital organs
CPT/HCPCS: 82962; 88300-TC; 94760

== ENCOUNTER 2018-07-22 18:16 | Emergency (ER) | payer MEDICARE, OTHER ==
[2018-07-22 18:28] VITALS: TEMP 98.6; BMI 30.9
--- NOTE | 2018-07-22 19:42 | PDOC ---
History of Present Illness - General Chief Complaint: Blood Pressure Problem Stated Complaint: BLOOD PRESSURE PROBLEM Time Seen by Provider: 07/22/18 19:10 History Source: Patient Exam Limitations: No Limitations - History of Present Illness Initial Comments: 07/22/18 19:42 HISTORY OF PRESENT ILLNESS: This is 68-year-old male with past medical history of IA, hypertension, NIDDM, hyperlipidemia, vertigo, kidney stones with multiple stents presents emergency departments for evaluation of elevated blood pressure. Patient denies any complaints reports his blood pressure has been elevated for the past 2 weeks. Patient has an appointment with his salesperson women's hats on Tuesday for continued evaluation of his blood pressure. Patient reports compliance with all his medications. He denies chest pain, dizziness, headaches , nausea, vomiting, shortness of breath, abdominal pain, urinary problems. No recent travel or sick contacts. PAST MEDICAL HISTORY: see HPI SURGICAL HISTORY: Denies ALLERGIES: Lisinopril->angioedema REVIEW OF SYSTEMS General/Constitutional: Denies fever or chills. Denies weakness, weight change. HEENT: Denies change in vision. Denies ear pain or discharge. Denies sore throat. Cardiovascular: Denies chest pain or shortness of breath. Elevated BP. Respiratory: Denies cough, wheezing, or hemoptysis. Gastrointestinal: Denies nausea, vomiting, diarrhea or constipation. Denies rectal bleeding. Genitourinary: Denies dysuria, frequency, or change in urination. Musculoskeletal: Denies joint or muscle swelling or pain. Denies neck or back pain. Skin and breasts: Denies rash or easy bruising. Neurologic: Denies headache, vertigo, loss of consciousness, or loss of sensation. Psychiatric: Denies depression or anxiety. Endocrine: Denies increased thirst. Denies abnormal weight change. Hematologic/Lymphatic: Denies anemia, easy bleeding, or history of blood clots. Allergic/Immunologic: Denies hives or skin allergy. Denies latex allergy. PHYSICAL EXAM General Appearance: Well-appearing, appropriately dressed. No apparent distress , no intoxication. HEENT: EOMI, PERRLA, normal ENT inspection, normal voice, TMs normal, pharynx normal. No conjunctival pallor. No photophobia, scleral icterus. Neck: Supple. Trachea midline. No tenderness, rigidity, carotid bruit, stridor , lymphadenopathy, or thyromegaly. Respiratory/Chest: Lungs CTAB. No shortness of breath, chest tenderness, respiratory distress, accessory muscle use. No crackles, rales, rhonchi, stridor , wheezing, dullness Cardiovascular: RRR. S1, S2. No JVD, murmur, bradycardia, tachycardia. Vascular Pulses: Dorsalis-Pedis (R): 2+, Dorsalis-Pedis (L): 2+ Gastrointestinal/Abdominal: Normal bowel sounds. Abdomen soft, non-distended. No tenderness or rebound tenderness. No organomegaly, pulsatile mass, guarding, hernia, hepatomegaly, splenomegaly. Lymphatic: No adenopathy, tenderness. Musculoskeletal/Extremities: Normal inspection. FROM of all extremities, normal capillary refill. Pelvis Stable. No CVA tenderness. No tenderness to extremities, pedal edema, swelling, erythema or deformity. Integumentary: Appropriate color, dry, warm. No cyanosis, erythema, jaundice or rash Neurologic: manager heavy duty II-XII intact. Fully oriented, alert. Appropriate mood/affect. Motor strength 5/5. No appreciable EOM palsy, facial droop or sensory deficit. Past History - Past Medical History Allergies/Adverse Reactions: Allergies Allergy/AdvReac Type Severity Reaction Status Date / Time lisinopril Allergy Severe Swelling Verified 07/22/18 20:20 Home Medications: Ambulatory Orders Gabapentin [Neurontin -] 300 mg PO DAILY 11/22/15 Furosemide 40 mg PO DAILY 08/08/17 Atorvastatin Ca [Lipitor] 40 mg PO HS 01/16/18 Chlorthalidone 25 mg PO DAILY 01/16/18 Insulin (LOG) Aspart [NovoLOG -] 16 units SQ BID 01/16/18 Diltiazem Cd [Cardizem Cd -] 120 mg PO DAILY 07/22/18 Glipizide 5 mg PO TID 07/22/18 Labetalol HCl [Normodyne -] 200 mg PO BID 07/22/18 Meloxicam 15 mg PO DAILY 07/22/18 Metoprolol Tartrate 100 mg PO BID 07/22/18 Tizanidine HCl 2 mg PO DAILY 07/22/18 Anemia: Yes Asthma: No Cancer: Yes (prostate) Cardiac Disorders: Yes (IA: 2012, CARDIAC STENTING) CVA: No COPD: No CHF: No Dementia: No Diabetes: Yes GI Disorders: No (GERD) Disorders: Yes (BLADDER MASS RESECTED IN DECEMBER 2015) HTN: Yes Hypercholesterolemia: Yes Liver Disease: No Seizures: No Thyroid Disease: No - Surgical History Abdominal Surgery: No Appendectomy: No Cardiac Surgery: Yes (STENT X1 2007) Cholecystectomy: No Lung Surgery: No Neurologic Surgery: No Orthopedic Surgery: No - Immunization History Immunization Up to Date: Yes - Suicide/Smoking/Psychosocial Hx Smoking Status: No Smoking History: Never smoked Have you smoked in the past 12 months: No Number of Cigarettes Smoked Daily: 1 If you are a former smoker, when did you quit?: 2014 'Breaking Loose' booklet given: 09/06/17 Hx Alcohol Use: No Drug/Substance Use Hx: No Substance Use Type: None Hx Substance Use Treatment: No *Physical Exam - Vital Signs Last Vital Signs Temp Pulse Resp BP Pulse Ox 98.6 F 69 17 183/101 H 95 07/22/18 18:25 07/22/18 18:25 07/22/18 18:25 07/22/18 18:25 07/22/18 18:25 Moderate Sedation - Procedure Monitoring Vital Signs: Procedure Monitoring Vital Signs Temperature 98.6 F 07/22/18 18:25 Pulse Rate 69 07/22/18 18:25 Respiratory Rate 17 07/22/18 18:25 Blood Pressure 183/101 H 07/22/18 18:25 O2 Sat by Pulse Oximetry (%) 95 07/22/18 18:25 ED Treatment Course - LABORATORY CBC & Chemistry Diagram: 07/22/18 20:19 07/22/18 22:00 Medical Decision Making - Medical Decision Making 07/22/18 19:46 A/P: 68-year-old male with a symptomatic hypertension Blood pressure 183/101 upon arrival. Physical exam is within normal limits Insert IV Urinalysis Basic labs EKG Hydralazine 10 mg IV Reassess 07/22/18 21:07 Medication reconciliation performed with patient and his son is revealed that the patient has been prescribed labetalol 400 mg twice a day but is only been taking labetalol 200 mg once a day. Patient was encouraged to take the medication correctly as prescribed to help with better control of his blood pressure. Patient is verbalized understanding of the correct way to take his medications for optimal blood pressure control. EKG reviewed by me and interpreted by Dr. Cortes: Sinus rhythm with first-degree AV block with rate of 61. CT interval 262 ms. Other intervals within normal limits. No ischemic changes noted. 07/22/18 22:53 Laboratory testing reveals a creatinine of 2.2. Patient's baseline is 2.0. Glucose is elevated at 369. Regular insulin 6units IV. Calcium 7.6 corrected to 8.6. I will discharge the patient home to follow-up with his salesperson women's hats on Tuesday as previously scheduled. Patient has been instructed to take his medications as previously prescribed. I discussed the physical exam findings, ancillary test results and final diagnoses with the patient. I answered all of the patient's questions. The patient was satisfied with the care received and felt comfortable with the discharge plan and treatment plan. The patient will call their primary care physician within 24 hours to arrange follow-up and will return to the Emergency Department with any new, persistent or worsening symptoms. *DC/Admit/Observation/Transfer Diagnosis at time of Disposition: Hypertension - Discharge Dispostion Disposition: HOME Condition at time of disposition: Fair Decision to Admit order: No - Referrals Referrals: Shine Langley MD [Primary Care Provider] - - Patient Instructions Additional Instructions: Keep well-hydrated. Take your medications as discussed. Keep her appointment with your salesperson women's hats scheduled next week. Return to the emergency department for any new or worse symptoms. - Post Discharge Activity
[2018-07-22] MEDS ORDERED: hydrALAZINE HCL 20 MG/ML VIAL IVPUSH ONE ×2 (19:47→20:32)
[2018-07-22] MEDS ORDERED: LABETALOL HCL 5 MG/1 ML (100MG/20 ML VIAL) IVPUSH ONE (19:55)
[2018-07-22 20:24] LABS: BASO % 1.2 % (0-2.0); EOS % 3.7 % (0-4.5); HEMATOCRIT 36.1 % (35.4-49); HEMOGLOBIN 12.2 GM/dL (11.7-16.9); LYMPH % 28.2 % (8-40); MCH 28.5 pg (25.7-33.7); MCHC 33.8 g/dl (32.0-35.9); MEAN CELL VOLUME 84.3 fl (80-96); MEAN PLT VOLUME 9.9 fl (7.5-11.1); MONO % 6.2 % (3.8-10.2); NEUT % 60.7 % (42.8-82.8); PLATELET COUNT 109 K/MM3 (134-434); RBC 4.29 M/mm3 (4.00-5.60); RDW 14.9 % (11.9-15.9); WHITE BLOOD COUNT 7.8 K/mm3 (4.0-10.0)
[2018-07-22] MEDS ORDERED: hydrALAZINE HCL 20 MG/ML VIAL ONE (20:43)
[2018-07-22 21:00] LABS: URINE APPEARANCE SLCLOUDY; URINE BILIRUBIN NEGATIVE (<2.0 mg/dL); URINE COLOR LTYELLOW; URINE GLUCOSE (UA) 3+ (NEGATIVE); URINE KETONE NEGATIVE (NEGATIVE); URINE LEUK ESTERASE NEGATIVE (NEGATIVE); URINE NITRITE NEGATIVE (NEGATIVE); URINE PROTEIN 3+ (NEGATIVE); URINE UROBILINOGEN NEGATIVE mg/dL (0.2-1.0)
[2018-07-22 21:18] LABS: EPI CELLS RARE /HPF (FEW); URINE BACTERIA RARE /hpf (NONE SEEN)
[2018-07-22 22:48] LABS: ALBUMIN 2.8 g/dl (3.4-5.0); ALK PHOS 131 U/L (45-117); ANION GAP 8 MMOL/L (8-16); BILIRUBIN,TOTAL 0.2 mg/dL (0.2-1); BLOOD UREA NITROGEN 35 mg/dL (7-18); CALCIUM 7.6 mg/dL (8.5-10.1); CHLORIDE 102 mmol/L (98-107); CO2 27 mmol/L (21-32); CREATININE 2.2 mg/dL (0.55-1.3); POTASSIUM 3.5 mmol/L (3.5-5.1); SGOT/AST 16 U/L (15-37); SGPT/ALT 28 U/L (13-61); SODIUM 136 mmol/L (136-145); TOT PROT 6.4 g/dl (6.4-8.2)
[2018-07-22 22:49] LABS: GLUCOSE,RANDOM 369 mg/dL (74-106)
[2018-07-22] MEDS ORDERED: INSULIN REGULAR HUMAN 100 UNITS/ML *VIAL IVPUSH ONE (22:51)
[2018-07-22] MEDS ORDERED: INSULIN REGULAR HUMAN 100 UNITS/ML *VIAL ONE (22:53)
[2018-07-22] MEDS ORDERED: VALSARTAN 40 MG TABLET (FP) PO ONE (23:34)
[2018-07-22] MEDS ORDERED: VALSARTAN 80 MG TABLET (UD) ONE (23:46)
[2018-07-22 23:52] VITALS: BP 160/100; PULSE 66
--- NOTE | 2018-07-23 11:09 | EKG ---
Test Reason : Blood Pressure : / mmHG Vent. Rate : 061 BPM Atrial Rate : 061 BPM P-R Int : 262 ms QRS Dur : 090 ms QT Int : 422 ms P-R-T Axes : 061 003 -05 degrees QTc Int : 424 ms SINUS RHYTHM WITH 1ST DEGREE A-V BLOCK NONSPECIFIC T WAVE ABNORMALITY ABNORMAL ECG Confirmed by SARANYA CROW MD ([id number]) on 07/23/2018 11:08:41 AM Referred By: CAMMIE Confirmed By:SARANYA CROW MD
== END 2018-07-22 23:53 | disposition home or self-care (01) ==
LOC: JER 18:16
PROC: 3E033VG Introduction of Insulin into Peripheral Vein, Percutaneous Approach (ICD-10-PCS; principal; 2018-07-22)
DX: I10 Essential (primary) hypertension (principal); E11.65 Type 2 diabetes mellitus with hyperglycemia; Z79.84 Long term (current) use of oral hypoglycemic drugs; I25.10 Atherosclerotic heart disease of native coronary artery without angina pectoris; Z95.5 Presence of coronary angioplasty implant and graft; I25.2 Old myocardial infarction; E78.00 Pure hypercholesterolemia, unspecified; Z87.448 Personal history of other diseases of urinary system; Z85.46 Personal history of malignant neoplasm of prostate
CPT/HCPCS: 36415; 80053; 81003; 81015; 85025; 93005; 93010; 96374; 99282-25

== ENCOUNTER 2018-10-23 08:27 | Day surgery (SDC) | payer MEDICARE, OTHER ==
[2018-10-20 13:07] VITALS: BMI 30.9
[2018-10-23 08:52] LABS: HEMATOCRIT 38.9 % (35.4-49); MCH 27.6 pg (25.7-33.7); MCHC 33.4 g/dl (32.0-35.9); MEAN CELL VOLUME 82.6 fl (80-96); MEAN PLT VOLUME 11.2 fl (7.5-11.1); PLATELET COUNT 132 K/MM3 (134-434); RBC 4.72 M/mm3 (4.00-5.60); RDW 14.1 % (11.9-15.9); WHITE BLOOD COUNT 9.5 K/mm3 (4.0-10.0)
[2018-10-23] MEDS ORDERED: ONDANSETRON 4 MG/2 ML VIAL IVPUSH PRN (10:25)
[2018-10-23] MEDS ORDERED: PROPOFOL 20 ML ONE (11:47)
[2018-10-23] MEDS ORDERED: DEXAMETHASONE SOD PHOSPHATE 4 MG/1 ML VIAL ONE (12:01)
[2018-10-23] MEDS ORDERED: IOHEXOL 300 MG/ML INFUS..BTL IV ONE (12:06)
[2018-10-23] MEDS ORDERED: NALOXONE HCL 0.4 MG/ML VIAL ONE (13:04)
[2018-10-23] MEDS ORDERED: LACTATED RINGERS SOLUTION 1,000 ML IV SCH (14:15)
--- NOTE | 2018-10-23 14:47 | OP ---
Operative Note - Note: Operative Date: 10/23/18 Pre-Operative Diagnosis: left ureteral stricure/left hydronephrosis Operation: cystoscopy/left retrograde pyelogram/left ureteroscopy and stent exchange Findings: distal ureter with long sticture to mid ureter open bladder neck with minimal sphincter mechanism Post-Operative Diagnosis: Same as Pre-op Surgeon: Jacques Loredo Anesthesia: General Drains & Tubes with Location: 12/18 left ureteral stent
[2018-10-23] MEDS ORDERED: DOCUSATE SODIUM 100 MG CAPSULE (FP) PO PRN (17:00)
[2018-10-23] MEDS ORDERED: SENNOSIDES 8.6MG TABLET (FP) PO PRN (17:00)
[2018-10-23] MEDS ORDERED: ACETAMINOPHEN 325 MG TABLET (FP) PO PRN (17:00)
--- NOTE | 2018-10-23 17:13 | HP ---
Admitting History and Physical - Primary Care Physician PCP: Shine Langley E - Admission Chief Complaint: Left hydronephrosis with ureteral stricture History of Present Illness: 68 year old M with h/o HTN, CKD, IDDM II, diabetic neuropathy, renal colic, HLD , CAD s/p PCI and prostate cancer presents for elective cystoscopy/left retrograde pyelogram/left ureteroscopy and stent exchange due to left hydropnephrosis. Pt had uncomplicated procedural course, however, he had trouble awakening from anesthesia and was given narcan for reversal. Pt will be observed overnight an discharged in the morning if he remains stable. History Source: Patient Limitations to Obtaining History: No Limitations - Past Medical History [employer]: Yes: Vertigo Cardiovascular: Yes: CAD (s/p stenting), HTN, Hyperlipdemia, [place] Gastrointestinal: Yes: Diverticulosis, GERD Renal/: Yes: Renal Inusuff, BPH, Cancer (Prostate), Hematuria, Renal Calculi, UTI (ESBL), Other Heme/Onc: Yes: Anemia Infectious Disease: Yes: Other (ESBL UTI) Musculoskeletal: Yes: Other (Osteoarthritis) Endocrine: Yes: Diabetes Mellitus Additional Past Medical History: B/l vision loss - Past Surgical History Past Surgical History: Yes: Prostatectomy, Stent (PCI, ureteral stenting) Additional Past Surgical History: Bladder mass resection 2015 - Smoking History Smoking history: Former smoker Have you smoked in the past 12 months: No Aproximately how many cigarettes per day: 3 If you are a former smoker, when did you quit?: 1 YEAR AGO - Alcohol/Substance Use Hx Alcohol Use: No History of Substance Use: reports: None - Social History Usual Living Arrangement: Yes: Alone ADL: Independent History of Recent Travel: No Home Medications - Allergies Allergies/Adverse Reactions: Allergies Allergy/AdvReac Type Severity Reaction Status Date / Time lisinopril Allergy Severe Swelling Verified 07/22/18 20:20 - Home Medications Home Medications: Ambulatory Orders Furosemide 40 mg PO DAILY 08/08/17 Atorvastatin Ca [Lipitor] 40 mg PO HS 01/16/18 Chlorthalidone 25 mg PO DAILY 01/16/18 Insulin (LOG) Aspart [NovoLOG -] 18 units SQ BID 01/16/18 Glipizide 5 mg PO TID 07/22/18 Amlodipine Besylate [Norvasc -] 10 mg PO DAILY 10/23/18 Carvedilol 25 mg PO DAILY 10/23/18 Insulin Detemir [Levemir Flextouch] 28 unit SQ BID 10/23/18 Meloxicam 15 mg PO DAILY 10/23/18 Ranitidine [Zantac -] 150 mg PO BID 10/23/18 Family Disease History - Family Disease History Family Disease History: Other: Father ( (94) blindness, natural causes) , Mother ( ( 83) DMII, natural causes), Sister (alive (73) DMII) Review of Systems - Review of Systems Constitutional: reports: No Symptoms Eyes: reports: Blurred Vision HENT: reports: No Symptoms Neck: reports: No Symptoms Cardiovascular: reports: No Symptoms Respiratory: reports: Cough Gastrointestinal: reports: No Symptoms Genitourinary: reports: No Symptoms, Frequency, Incontinence Breasts: reports: No Symptoms Reported Musculoskeletal: reports: Joint Pain Integumentary: reports: No Symptoms Neurological: reports: No Symptoms Endocrine: reports: No Symptoms Hematology/Lymphatic: reports: No Symptoms Psychiatric: reports: No Symptoms Physical Examination Vital Signs: Vital Signs Temperature 98.0 F 10/23/18 13:10 Pulse Rate 79 10/23/18 15:45 Respiratory Rate 12 10/23/18 15:45 Blood Pressure 159/88 10/23/18 15:45 O2 Sat by Pulse Oximetry (%) 92 L 10/23/18 15:45 Constitutional: Yes: Well Nourished, No Distress, Calm Eyes: Yes: Conjunctiva Clear, EOM Intact, PERRL HENT: Yes: Atraumatic, Normocephalic Neck: Yes: Supple, Trachea Midline Cardiovascular: Yes: Regular Rate and Rhythm Respiratory: Yes: Regular, CTA Bilaterally Gastrointestinal: Yes: Normal Bowel Sounds, Soft ...Rectal Exam: Yes: Deferred Renal/: Yes: Incontinence, Other (diapers in place) Musculoskeletal: Yes: WNL Extremities: Yes: WNL Edema: No Peripheral Pulses WNL: Yes Peripheral Pulses: Left Radial: 2+, Right Radial: 2+, Left Doralis Pedis: 2+, Right Dorsalis Pedis: 2+ Integumentary: Yes: WNL Neurological: Yes: Alert, Oriented ...Motor Strength: WNL Psychiatric: Yes: Alert, Oriented Labs: CBC, BMP 10/23/18 08:35 Imaging - Results Chest X-ray: Pending (CXR pending 10/23/2018) Problem List - Problems (1) CAD (coronary artery disease) Assessment/Plan: lipitor 40mg Cardiac -diabetic diet restart aspirin 81mg in AM Code(s): I25.10 - ATHSCL HEART DISEASE OF [place] CORONARY ARTERY W/O ANG PCTRS (2) History of urethral stent Assessment/Plan: pt followed by urology Code(s): FYT2929 - (3) Hydronephrosis, left Assessment/Plan: s/p cystoscopy/left retrograde pyelogram/left ureteroscopy and stent exchange If stable overnight, pt can be discharged in AM Code(s): N13.30 - UNSPECIFIED HYDRONEPHROSIS (4) Hypertension Assessment/Plan: continue norvasc 10mg, Coreg 25mg, aldactone 25mg and lasix 40mg daily vitals q4H monitor on telemetry Code(s): I10 - ESSENTIAL (PRIMARY) HYPERTENSION (5) Diabetes Assessment/Plan: Levemir 28units BID Insulin SS Fingerstick AC/HS pt to restart home diabetic regimen upon discharge Code(s): E11.9 - TYPE 2 DIABETES MELLITUS WITHOUT COMPLICATIONS (6) Prophylactic measure Assessment/Plan: SCDs OOB as tolerated O2L NC Zantac 150mg BID Senna/colace Tylenol PRN moderate pain Code(s): Z29.9 - ENCOUNTER FOR PROPHYLACTIC MEASURES, UNSPECIFIED Assessment/Plan DISPO: home on 10/24 if he remains stable Code Status: Full Visit type - Emergency Visit Emergency Visit: No - New Patient This patient is new to me today: Yes Date on this admission: 10/23/18 - Critical Care Critical Care patient: No
[2018-10-23] MEDS ORDERED: INSULIN (NOVOLOG) ASPART 100 UNITS/ML 10ML VIAL SQ ONE ×2 (17:33)
[2018-10-23] MEDS ORDERED: ACETAMINOPHEN 325 MG TABLET (FP) ONE (18:36)
[2018-10-23] MEDS ORDERED: ACETAMINOPHEN 325 MG TABLET (FP) PO ONE (18:39)
[2018-10-23] MEDS ORDERED: Insulin (LOG) Aspart 100 UNITS/ML VIAL SQ SCH (22:00)
[2018-10-23] MEDS ORDERED: ATORVASTATIN CA 40 MG TABLET (FP) PO SCH (22:00)
[2018-10-23] MEDS: INSULIN SLIDING SCALE (NOVOLOG) 1 VIAL SQ SCH (22:26)
[2018-10-23] MEDS: RANITIDINE HCL 150 MG TABLET (FP) PO SCH (22:26)
[2018-10-23] MEDS: INSULIN (LEVEMIR) 100 UNITS/ML UNITS SQ SCH (22:27)
--- NOTE | 2018-10-23 22:52 | OP ---
DATE OF OPERATION: 10/23/2018 PREOPERATIVE DIAGNOSIS: Left ureteral stricture, left hydronephrosis. POSTOPERATIVE DIAGNOSIS: Left ureteral stricture, left hydronephrosis. PROCEDURE: Cystoscopy, left retrograde pyelogram, left ureteroscopy and stent exchange. ATTENDING: Davie Epstein MD ANESTHESIA: General. OPERATION: The patient was brought to the operating room and placed in the supine position on the operating room table. Anesthesia and preoperative antibiotics were administered at this point. The patient was placed in the dorsal lithotomy position and prepped and draped in the usual sterile manner. Cystoscopy was performed and a urethral stricture was noted, which was dilated with a scope with moderate difficulty. The bladder was entered. The left ureteral stent was seen. Because of the difficulty in placing the previous stents, it was decided to utilize the ureteroscopy and go alongside the stent in order to place a wire proximally before removing the stent. Ureteroscopy was performed and the distal orifice was intubated and a wire passed proximally under fluoroscopic visualization. Once the wire was passed proximally, the stent was removed with the grasping forceps utilizing the cystoscope for visualization. At this point, ureteroscopy was performed and the very tight stricture involving the distal ureter up to the mid ureter was encountered. The ureter was dilated under direct visualization with the ureteroscope. With the stricture dilated at this point, a 6-[place] 24-cm stent was placed over the wire utilizing the Seldinger technique. No complications were noted. The patient tolerated the procedure very well. DAVIE EPSTEIN M.D. /[id number]
[2018-10-24 05:47] LABS: HEMATOCRIT 36.6 % (35.4-49); HEMOGLOBIN 12.2 GM/dL (11.7-16.9); MCH 27.6 pg (25.7-33.7); MCHC 33.4 g/dl (32.0-35.9); MEAN CELL VOLUME 82.7 fl (80-96); MEAN PLT VOLUME 11.7 fl (7.5-11.1); PLATELET COUNT 134 K/MM3 (134-434); RBC 4.43 M/mm3 (4.00-5.60); RDW 14.7 % (11.9-15.9)
[2018-10-24 06:34] LABS: ANION GAP 8 MMOL/L (8-16); BLOOD UREA NITROGEN 45 mg/dL (7-18); CALCIUM 8.8 mg/dL (8.5-10.1); CHLORIDE 104 mmol/L (98-107); CO2 24 mmol/L (21-32); CREATININE 2.9 mg/dL (0.55-1.3); MAGNESIUM 2.3 mg/dL (1.8-2.4); N-TERMINAL BNP 339.9 pg/ml (5-125); PHOSPHOROUS 3.3 mg/dL (2.5-4.9); POTASSIUM 4.7 mmol/L (3.5-5.1); SODIUM 136 mmol/L (136-145)
[2018-10-24] MEDS: glipiZIDE 5 MG TABLET (FP) PO SCH ×2 (06:34→11:09)
[2018-10-24] MEDS: INSULIN SLIDING SCALE (NOVOLOG) 1 VIAL SQ SCH ×2 (06:35→11:09)
[2018-10-24 06:36] LABS: GLUCOSE,RANDOM 338 mg/dL (74-106)
[2018-10-24] MEDS: INSULIN (LEVEMIR) 100 UNITS/ML UNITS SQ SCH (06:37)
[2018-10-24 08:14] VITALS: BP 145/80; PULSE 86; TEMP 97.6
[2018-10-24] MEDS ORDERED: PT OWN MED DRAWER 7, Y5N ONE (09:42)
[2018-10-24] MEDS: RANITIDINE HCL 150 MG TABLET (FP) PO SCH (09:57)
[2018-10-24] MEDS ORDERED: ASPIRIN 81 MG CHEWABLE TABLETS PO SCH (10:00)
[2018-10-24] MEDS ORDERED: CHLORTHALIDONE 25 MG TABLET PO SCH (10:00)
[2018-10-24] MEDS ORDERED: PANTOPRAZOLE 20 MG TABLET (FP) PO SCH (10:00)
[2018-10-24] MEDS ORDERED: amLODIPine BESYLATE 10 MG TABLET (FP) PO SCH (10:00)
[2018-10-24] MEDS ORDERED: FUROSEMIDE 40 MG TABLET (FP) PO SCH (10:00)
[2018-10-24] MEDS ORDERED: CARVEDILOL 25 MG TABLET (FP) PO SCH (10:00)
[2018-10-24] MEDS ORDERED: PATIENT'S OWN MEDICATION (NON-FORMULARY) (Meloxicam [Meloxicam] 15 MG) PO SCH (10:00)
--- NOTE | 2018-10-24 12:55 | DS ---
Physical Exam: SUBJECTIVE: Patient seen and examined at the bedside. tells me he feels fine and thought he was still in the hospital for monitoring s /p cystoscopy. unaware that he had a possible reaction to the anesthesia. he is on the phone with his family, eating lunch, in good spirits. wants to go home. OBJECTIVE: discharge home. vitals stable, in no acute distress. tolerating room air and mentation is at baseline. pink tinged urine noted on urinal Vital Signs Period Temp Pulse Resp BP Sys/[place] Pulse Ox Last 24 Hr 97.6 F-98.7 F 72-102 12-20 144-183/68-96 92-98 PHYSICAL EXAM GENERAL: The patient is awake, alert, and fully oriented, in no acute distress. HEAD: Normal with no signs of trauma. EYES: PERRL, extraocular movements intact, sclera anicteric, conjunctiva clear. ENT: Ears normal, nares patent, oropharynx clear without exudates, moist mucous membranes. NECK: Trachea midline, full range of motion, supple. LUNGS: Breath sounds equal, clear to auscultation bilaterally, no wheezes, no crackles, no accessory muscle use. HEART: Regular rate and rhythm, ABDOMEN: Soft, nontender, nondistended, normoactive bowel sounds, no guarding, no rebound, no hepatosplenomegaly, no masses. EXTREMITIES: no edema. NEUROLOGICAL: Normal speech, gait not observed. PSYCH: Normal mood, normal affect. SKIN: Warm, dry, normal turgor, no rashes or lesions noted. LABS Laboratory Results - last 24 hr 10/23/18 10/23/18 10/23/18 13:06 17:09 22:20 WBC RBC Hgb Hct MCV MCH MCHC RDW Plt Count MPV Sodium Potassium Chloride Carbon Dioxide Anion Gap BUN Creatinine Creat Clearance w eGFR POC Glucometer 212 283 390 Random Glucose Calcium Phosphorus Magnesium B-Natriuretic Peptide 10/24/18 10/24/18 10/24/18 05:21 05:30 05:30 WBC 10.0 RBC 4.43 Hgb 12.2 Hct 36.6 MCV 82.7 MCH 27.6 MCHC 33.4 RDW 14.7 Plt Count 134 MPV 11.7 H Sodium 136 Potassium 4.7 Chloride 104 Carbon Dioxide 24 Anion Gap 8 BUN 45 H Creatinine 2.9 H Creat Clearance w eGFR 21.62 POC Glucometer 346 Random Glucose 338 H* Calcium 8.8 Phosphorus 3.3 Magnesium 2.3 B-Natriuretic Peptide 339.9 H 10/24/18 11:07 WBC RBC Hgb Hct MCV MCH MCHC RDW Plt Count MPV Sodium Potassium Chloride Carbon Dioxide Anion Gap BUN Creatinine Creat Clearance w eGFR POC Glucometer 343 Random Glucose Calcium Phosphorus Magnesium B-Natriuretic Peptide HOSPITAL COURSE: Date of Admission:10/23/18 Date of Discharge: 10/24/18 Patient is a 68 year old male with a past medical history of HTN, CKD, IDDM II, diabetic neuropathy, renal colic, HLD, CAD s/p PCI and prostate cancer presents for elective cystoscopy/left retrograde pyelogram/left ureteroscopy and stent exchange due to left hydropnephrosis. Pt had uncomplicated procedural course, however, he had trouble awakening from anesthesia and was given narcan for reversal. Pt was observed overnight, remained stable and will discharged this afternoon. Possible anesthesia reaction. No vomiting, chills, confusion or other deficit. mentation at baseline. Diabetes. continue home medications CAD on lipiror, asa, History of urethral stent followed by urology as an outpatient Hydronephrosis s/p cystoscopy/left retrograde pyelogram/left ureteroscopy and stent exchange urology follow up Hypertension controlled on norvasc 10mg, Coreg 25mg, aldactone 25mg and lasix 40mg daily discharge home. Minutes to complete discharge: 60 Discharge Summary Reason For Visit: HYDRONEPHROSIS W/URETERAL STRICTURE, NEC Current Active Problems Prophylactic measure (Acute) Condition: Improved - Instructions Diet, Activity, Other Instructions: Mr. Bangura: You will be discharged home today. You were admitted when you had difficulty waking up after having anethesia. We monitored you overnight and will be discharging you home. Please continue all your home medications and follow up with your primary care doctor within [address] Toni Chamberlain office for a follow up appointment. Thank you for allowing us to care for you. Disposition: VNS/HOME HEALTH CARE - Home Medications Comprehensive Discharge Medication List: Ambulatory Orders Furosemide 40 mg PO DAILY 08/08/17 Atorvastatin Ca [Lipitor] 40 mg PO HS 01/16/18 Chlorthalidone 25 mg PO DAILY 01/16/18 Insulin (LOG) Aspart [NovoLOG -] 18 units SQ BID 01/16/18 Glipizide 5 mg PO TID 07/22/18 Amlodipine Besylate [Norvasc -] 10 mg PO DAILY 10/23/18 Carvedilol 25 mg PO DAILY 10/23/18 Insulin Detemir [Levemir Flextouch] 28 unit SQ BID 10/23/18 Meloxicam 15 mg PO DAILY 10/23/18 Ranitidine [Zantac -] 150 mg PO BID 10/23/18 Aspirin [ASA -] 81 mg PO DAILY tab.chew 10/24/18 Docusate Sodium [Colace -] 100 mg PO BID PRN capsule 10/24/18 This patient is new to me today: Yes Date on this admission: 10/24/18 Emergency Visit: Yes Care time: The patient presented to the Emergency Department on the above date and was hospitalized for further evaluation of their emergent condition. Critical Care patient: No - Discharge Referral Referred to [facility] No
--- NOTE | 2018-10-25 15:36 | PATH ---
Surgical Pathology Report Patient Name: BRYSON LAWRENCE Med. Rec. #: [id number] /Age/Gender: 1950 (Age: 68) / M Account: [id number] Location: AMBULATORY SURG Taken: 10/23/2018 Received: 10/23/2018 Reported: 10/25/2018 Physicians: Jacques Loredo Specimen(s) Received LEFT URETERAL STENT Clinical History Left ureteral insufficiency, left ureteral stricture Final Diagnosis LEFT URETERAL STENT, REMOVAL: CONSISTENT WITH URETERAL STENT. GROSS EXAMINATION ONLY. Electronically Signed Honey Gonzalez M.D. Gross Description Received fresh labeled "left ureteral stent," is a 34 cm in length yellow-green, coiled portion of tubing, consistent with a ureteral stent. No soft tissue is present. No sections are submitted, gross only. /10/23/2018 [facility]/10/23/2018
== END 2018-10-24 13:47 | disposition home health service (06) ==
LOC: SUATTDRO 08:27 → JASUSAT 08:27 → JASU-SURG 08:27 → J4S 19:50 → JASUSAT 10-24 13:47
PROVIDERS: ATTEND Nurse Practitioner Family
PROC: 0T9780Z Drainage of Left Ureter with Drainage Device, Via Natural or Artificial Opening Endoscopic (ICD-10-PCS; principal; 2018-10-23 10:00)
PROC: BT1FYZZ Fluoroscopy of Left Kidney, Ureter and Bladder using Other Contrast (ICD-10-PCS; 2018-10-23 10:00)
DX: N13.1 Hydronephrosis with ureteral stricture, not elsewhere classified (principal); I25.10 Atherosclerotic heart disease of native coronary artery without angina pectoris; I12.9 Hypertensive chronic kidney disease with stage 1 through stage 4 chronic kidney disease, or unspecified chronic kidney disease; E11.22 Type 2 diabetes mellitus with diabetic chronic kidney disease; N18.9 Chronic kidney disease, unspecified
CPT/HCPCS: 36415; 71045-TC-FY; 80048; 82962; 83735; 83880; 84100; 85027; 88300-TC; 94010; 94760

== ENCOUNTER 2018-12-24 00:18 | Emergency (ER) | payer MEDICARE, OTHER ==
[2018-12-24 00:39] VITALS: BMI 30.9
--- NOTE | 2018-12-24 00:47 | PDOC ---
History of Present Illness - General Chief Complaint: Sore Throat Stated Complaint: NOSE AND THROAT PAIN Time Seen by Provider: 12/24/18 00:47 - History of Present Illness Initial Comments: 12/24/18 01:00 Mr. Bangura is a 68 yo male w/ pmh of HTN, HLD, IDDM, prior PR who presents for evaluation of 3 day history of congestion with "dry" throat. Patient denies any throat pain or other symptoms. Patient reports he has been stuffed up over this time period. Also complaining of some lower extremity swelling over this same time period. The patient denies chest pain, shortness of breath, headache and dizziness. Denies fever, chills, nausea, vomit, diarrhea and constipation. Denies dysuria, frequency, urgency and hematuria. Past History - Past Medical History Allergies/Adverse Reactions: Allergies Allergy/AdvReac Type Severity Reaction Status Date / Time lisinopril Allergy Severe Swelling Verified 12/24/18 02:11 Home Medications: Ambulatory Orders Furosemide 40 mg PO DAILY 08/08/17 Atorvastatin Ca [Lipitor] 40 mg PO HS 01/16/18 Insulin (LOG) Aspart [NovoLOG -] 18 units SQ BID 01/16/18 Insulin Detemir [Levemir Flextouch] 34 unit SQ BID 10/23/18 Meloxicam 15 mg PO DAILY 10/23/18 Ranitidine [Zantac -] 150 mg PO BID 10/23/18 Carvedilol 25 mg PO BID 12/24/18 Gabapentin 300 mg PO DAILY 12/24/18 Labetalol HCl [Normodyne -] 200 mg PO BID 12/24/18 Levothyroxine Sodium [Levoxyl] 25 mcg PO DAILY 12/24/18 Sodium Bicarbonate - 650 mg PO BID 12/24/18 Anemia: Yes Asthma: No Cancer: Yes (prostate, CHEMO) Cardiac Disorders: Yes ([place]: 2011, CARDIAC STENTING) CVA: No COPD: No CHF: No Dementia: No Diabetes: Yes GI Disorders: Yes (GERD) Disorders: Yes (BLADDER MASS RESECTED IN DECEMBER 2015) HTN: Yes Hypercholesterolemia: Yes Liver Disease: No Seizures: No Thyroid Disease: No - Surgical History Abdominal Surgery: No Appendectomy: No Cardiac Surgery: Yes (STENT X1 2007) Cholecystectomy: No Lung Surgery: No Neurologic Surgery: No Orthopedic Surgery: No - Immunization History Immunization Up to Date: Yes - Suicide/Smoking/Psychosocial Hx Smoking Status: No Smoking History: Unknown if ever smoked Have you smoked in the past 12 months: No Number of Cigarettes Smoked Daily: 3 If you are a former smoker, when did you quit?: 1 YEAR AGO Information on smoking cessation initiated: No 'Breaking Loose' booklet given: 09/06/17 Hx Alcohol Use: No Drug/Substance Use Hx: No Substance Use Type: None Hx Substance Use Treatment: No Review of Systems - Review of Systems Comments:: 12/24/18 01:02 GENERAL/CONSTITUTIONAL: No fever or chills. No weakness. HEAD, EYES, EARS, NOSE AND THROAT: +Nasal congestion w/ "dry" throat as above. No change in vision. No ear pain or discharge. No sore throat. CARDIOVASCULAR: No chest pain or shortness of breath RESPIRATORY: No cough, wheezing, or hemoptysis. GASTROINTESTINAL: No nausea, vomiting, diarrhea or constipation. GENITOURINARY: No dysuria, frequency, or change in urination. MUSCULOSKELETAL: +Lower extremity swelling as described. No joint or muscle swelling or pain. No neck or back pain. SKIN: No rash NEUROLOGIC: No headache, vertigo, loss of consciousness, or change in strength/ sensation. ENDOCRINE: No increased thirst. No abnormal weight change HEMATOLOGIC/LYMPHATIC: No anemia, easy bleeding, or history of blood clots. ALLERGIC/IMMUNOLOGIC: No hives or skin allergy. *Physical Exam - Vital Signs Last Vital Signs Temp Pulse Resp BP Pulse Ox 98.3 F 71 20 155/80 98 12/24/18 00:36 12/24/18 00:36 12/24/18 00:36 12/24/18 00:36 12/24/18 00:36 - Physical Exam Comments: 12/24/18 01:02 GENERAL: Awake, alert, and fully oriented, in no acute distress HEAD: No signs of trauma, normocephalic, atraumatic EYES: PERRLA, EOMI, sclera anicteric, conjunctiva clear ENT: Auricles normal inspection, hearing grossly normal, nares patent, oropharynx clear without exudates. Moist mucosa NECK: Normal ROM, supple, no lymphadenopathy, JVD, or masses LUNGS: No distress, speaks full sentences, clear to auscultation bilaterally HEART: Regular rate and rhythm, normal S1 and S2, no murmurs, rubs or gallops, peripheral pulses normal and equal bilaterally. ABDOMEN: Soft, nontender, normoactive bowel sounds. No guarding, no rebound. No masses EXTREMITIES: +1+ pedal edema GÓMEZ. Otherwise normal inspection, Normal range of motion, no edema. No clubbing or cyanosis. NEUROLOGICAL: Cranial nerves II through XII grossly intact. Normal speech, normal gait, no focal sensorimotor deficits SKIN: Warm, Dry, normal turgor, no rashes or lesions noted. ED Treatment Course - LABORATORY CBC & Chemistry Diagram: 12/24/18 01:50 12/24/18 01:50 Medical Decision Making - Medical Decision Making 12/24/18 02:52 Mr. Bangura is a 68 yo male w/ pmh as described who presents for evaluation of non- specific symptoms of congestion w/ associated GÓMEZ LE swelling. Patient evaluated w/ basic labs and noted to have elevated Cr however improved from last presentation. Patient given additional oral lasix dose as BNP elevated. No other concerning findings. Patient safe for discharge and outpatient f/u. Discharging to home. Laboratory Results - last 24 hr 12/24/18 12/24/18 01:50 01:50 WBC 7.2 RBC 4.03 Hgb 10.9 L Hct 32.9 L MCV 81.7 MCH 27.1 MCHC 33.2 RDW 14.4 Plt Count 150 MPV 10.8 Absolute Neuts (auto) 4.2 Neutrophils % 58.3 Lymphocytes % 28.2 Monocytes % 7.8 Eosinophils % 4.9 H Basophils % 0.8 Nucleated RBC % 0 Sodium 144 Potassium 3.6 Chloride 111 H Carbon Dioxide 25 Anion Gap 8 BUN 25.1 H Creatinine 2.1 H Est GFR (CKD-EPI)AfAm 35.88 Est GFR (CKD-EPI)NonAf 30.96 Random Glucose 159 H Calcium 8.4 L Total Bilirubin 0.3 AST 15 ALT 25 Alkaline Phosphatase 149 H B-Natriuretic Peptide 670.4 H Total Protein 6.6 Albumin 3.1 L *DC/Admit/Observation/Transfer Diagnosis at time of Disposition: Viral URI - Discharge Dispostion Disposition: HOME - Referrals - Patient Instructions Printed Discharge Instructions: DI for Viral Upper Respiratory Infection -- Adult Additional Instructions: You were evaluated today in the ER for your symptoms. We performed labs as well as a physical exam and believe you have a viral infection. You may take over the counter motrin or tylenol for relief from pain as well as over the counter cold medicine. We also gave you an extra dose of lasix as you were noted to have extra fluid in your legs. Drink plenty of fluids and follow-up with primary care provider early next week for further evaluation. Return to ER if any fever, chills, pain, or other concerning symptoms. Usted fue evaluado hoy en la nate de emergencias por deyanira sntomas. Realizamos anlisis de laboratorio y un examen fsico y creemos que tiene geni infeccin viral. Puede mazin el contador de motrin o tylenol para aliviar el dolor, as elio tambin sobre el medicamento contra el resfriado. Tambin le dimos geni dosis extra de lasix, ya que se observ que deandre lquido extra en las piernas. Ritu muchos lquidos y bobby un seguimiento con el proveedor de atencin primaria a principios de la prxima semana para geni evaluacin adicional. Regrese a la nate de emergencias si tiene fiebre, escalofros, dolor u otros sntomas relacionados. Print Language: LAO - Post Discharge Activity
--- NOTE | 2018-12-24 00:54 | PDOC ---
Documentation entered by Colby Justin SCRIBE, acting as scribe for Alexus Jennings MD. Alexus Jennings MD: This documentation has been prepared by the scribe, Colby Justin SCRIBE, under my direction and personally reviewed by me in its entirety. I confirm that the documentation accurately reflects all work, treatment, procedures, and medical decision making performed by me. Attending Attestation - Resident Resident Name: FernandonikkipankajMinesh - ED Attending Attestation I have performed the following: I have examined & evaluated the patient, The case was reviewed & discussed with the resident, I agree w/resident's findings & plan, Exceptions are as noted - HPI HPI: 12/24/18 01:09 The patient is a 68 year old male with a significant past medical history of hypertension, hyperlipidemia, diabetes, and CT who presents to the emergency department with a sore throat for 3 days. The patient states that he has been experiencing some congestion and dry throat for the past 3 days. He denies any sick contacts, fever, chills, nausea, vomiting, diarrhea, constipation or urinary symptoms. He denies any chest pain shortness of breath, headache or dizziness. The patient denies any other symptoms or complaints. - Physicial Exam PE: GENERAL: Awake, alert, and fully oriented, in no acute distress. +Odor of urine HEAD: No signs of trauma EYES: PERRLA, EOMI, sclera anicteric, conjunctiva clear ENT: Auricles normal inspection, hearing grossly normal, nares patent, oropharynx clear without exudates. Moist mucosa. Boggy nasal turbinates B/L with crusting in the nares NECK: Normal ROM, supple, no lymphadenopathy, JVD, or masses LUNGS: Breath sounds equal, clear to auscultation bilaterally. No wheezes, and no crackles HEART: Regular rate and rhythm, normal S1 and S2, no murmurs, rubs or gallops ABDOMEN: Soft, nontender, normoactive bowel sounds. No guarding, no rebound. No masses EXTREMITIES: Normal range of motion, 2+ pitting edema BLE to mid-waite. No clubbing or cyanosis. No cords, erythema, or tenderness NEUROLOGICAL: Cranial nerves II through XII grossly intact. Normal speech, normal gait. Motor and sensation intact SKIN: Warm, Dry, normal turgor, no rashes or lesions noted. - Medical Decision Making 12/24/18 01:44 Pt with history of ESBL in urine, will check UA, as there is strong odor of urine at time of exam. Will check labs including BNP, as his legs are getting swollen and he is on lasix. Denies SOB. He states his main concern is that he has had difficulty breathing through his nose for the past 3 days. Exam shows boggy turbinates, which would suggest possibly seasonal allergies. No signs of acute infection. Will start nasal steroid.
[2018-12-24] MEDS ORDERED: FUROSEMIDE 40 MG TABLET (FP) PO ONE (01:55)
[2018-12-24 02:17] LABS: BASO % 0.8 % (0-2.0); EOS % 4.9 % (0-4.5); HEMATOCRIT 32.9 % (35.4-49); HEMOGLOBIN 10.9 GM/dL (11.7-16.9); LYMPH % 28.2 % (8-40); MCH 27.1 pg (25.7-33.7); MCHC 33.2 g/dl (32.0-35.9); MEAN CELL VOLUME 81.7 fl (80-96); MEAN PLT VOLUME 10.8 fl (7.5-11.1); MONO % 7.8 % (3.8-10.2); NEUT % 58.3 % (42.8-82.8); PLATELET COUNT 150 K/MM3 (134-434); RBC 4.03 M/mm3 (4.00-5.60); RDW 14.4 % (11.9-15.9); WHITE BLOOD COUNT 7.2 K/mm3 (4.0-10.0)
[2018-12-24 02:45] LABS: ALBUMIN 3.1 g/dl (3.4-5.0); BILIRUBIN,TOTAL 0.3 mg/dL (0.2-1); BLOOD UREA NITROGEN 25.1 mg/dL (7-18); CALCIUM 8.4 mg/dL (8.5-10.1); CREATININE 2.1 mg/dL (0.55-1.3); N-TERMINAL BNP 670.4 pg/ml (5-125); POTASSIUM 3.6 mmol/L (3.5-5.1); TOT PROT 6.6 g/dl (6.4-8.2)
[2018-12-24] MEDS ORDERED: FUROSEMIDE 40 MG TABLET (FP) ONE (03:05)
[2018-12-24 03:29] VITALS: BP 133/81; PULSE 66; TEMP 97.4
== END 2018-12-24 03:28 | disposition home or self-care (01) ==
LOC: JER 00:18
DX: J06.9 Acute upper respiratory infection, unspecified (principal); B97.89 Other viral agents as the cause of diseases classified elsewhere; I10 Essential (primary) hypertension; E78.5 Hyperlipidemia, unspecified; E11.9 Type 2 diabetes mellitus without complications; I25.2 Old myocardial infarction; D64.9 Anemia, unspecified; K21.9 Gastro-esophageal reflux disease without esophagitis; Z79.4 Long term (current) use of insulin; Z95.5 Presence of coronary angioplasty implant and graft; Z85.46 Personal history of malignant neoplasm of prostate; Z92.21 Personal history of antineoplastic chemotherapy
CPT/HCPCS: 36415; 80053; 83880; 85025; 99282-25

== ENCOUNTER 2019-04-09 08:16 | Emergency (ER) | payer MEDICARE, OTHER ==
[2019-04-09 08:30] VITALS: BP 148/98; PULSE 71; TEMP 98.5; BMI 32.5
--- NOTE | 2019-04-09 08:44 | PDOC ---
History of Present Illness - General Chief Complaint: Sore Throat Stated Complaint: SORE THROAT Time Seen by Provider: 04/09/19 08:30 History Source: Patient - History of Present Illness Timing/Duration: reports: this morning Severity: reports: mild Past History - Past Medical History Allergies/Adverse Reactions: Allergies Allergy/AdvReac Type Severity Reaction Status Date / Time lisinopril Allergy Severe Swelling Verified 12/24/18 02:11 Home Medications: Ambulatory Orders Furosemide 40 mg PO DAILY 08/08/17 Atorvastatin Ca [Lipitor] 40 mg PO HS 01/16/18 Insulin (LOG) Aspart [NovoLOG -] 18 units SQ BID 01/16/18 Insulin Detemir [Levemir Flextouch] 34 unit SQ BID 10/23/18 Meloxicam 15 mg PO DAILY 10/23/18 Ranitidine [Zantac -] 150 mg PO BID 10/23/18 Carvedilol 25 mg PO BID 12/24/18 Gabapentin 300 mg PO DAILY 12/24/18 Labetalol HCl [Normodyne -] 200 mg PO BID 12/24/18 Levothyroxine Sodium [Levoxyl] 25 mcg PO DAILY 12/24/18 Sodium Bicarbonate - 650 mg PO BID 12/24/18 Anemia: Yes Asthma: No Cancer: Yes (prostate, CHEMO) Cardiac Disorders: Yes ([place]: 2011, CARDIAC STENTING) CVA: No COPD: No CHF: No Dementia: No Diabetes: Yes GI Disorders: Yes (GERD) Disorders: Yes (BLADDER MASS RESECTED IN DECEMBER 2015) HTN: Yes Hypercholesterolemia: Yes Liver Disease: No Seizures: No Thyroid Disease: No - Surgical History Abdominal Surgery: No Appendectomy: No Cardiac Surgery: Yes (STENT X1 2007) Cholecystectomy: No Lung Surgery: No Neurologic Surgery: No Orthopedic Surgery: No - Immunization History Immunization Up to Date: Yes - Psycho Social/Smoking Cessation Hx Smoking Status: No Smoking History: Never smoked Have you smoked in the past 12 months: No Number of Cigarettes Smoked Daily: 3 If you are a former smoker, when did you quit?: 1 YEAR AGO Information on smoking cessation initiated: No 'Breaking Loose' booklet given: 09/06/17 Hx Alcohol Use: No Drug/Substance Use Hx: No Substance Use Type: None Hx Substance Use Treatment: No Review of Systems - Review of Systems Constitutional: No: Chills, Fever HEENTM: No: Ear Pain, Ear Discharge Respiratory: No: Cough *Physical Exam - Vital Signs Last Vital Signs Temp Pulse Resp BP Pulse Ox 98.5 F 71 16 148/98 97 04/09/19 08:26 04/09/19 08:26 04/09/19 08:26 04/09/19 08:26 04/09/19 08:26 - Physical Exam General Appearance: Yes: Appropriately Dressed. No: Apparent Distress HEENT: positive: Normal Voice. negative: Normal ENT Inspection, TMs Normal, Pharynx Normal, Scleral Icterus (R), Scleral Icterus (L), Muffled/Hoarse voice, Tonsillar Exudate, Sinus Tenderness Neck: positive: Supple. negative: Lymphadenopathy (R), Lymphadenopathy (L) Respiratory/Chest: positive: Lungs Clear, Normal Breath Sounds. negative: Respiratory Distress Cardiovascular: positive: Regular Rate, S1, S2 Integumentary: positive: Dry, Warm Neurologic: positive: Fully Oriented, Alert, Normal Mood/Affect Medical Decision Making - Medical Decision Making 04/09/19 08:41 68 yo male, h/o HTN, DM, here w/ complaint that he snored "a lot" last night and woke up this morning with phlegm/discomfort in his throat. No other URI sxs and no shortness of breath, chest pain fever or chills. Patient well- appearing with unremarkable exam. Symptoms possibly related to excessive snoring versus early viral URI. Supportive treatment [id number] as needed. Has PMD appointment in 2 days Discharge - Discharge Information Problems reviewed: Yes Clinical Impression/Diagnosis: Throat discomfort Condition: Good Disposition: HOME - Follow up/Referral - Patient Discharge Instructions Additional Instructions: La causa de deyanira sntomas no est yifan en greta momento ya que vaz examen es normal Si edis que tiene alergias, puede mazin el contador claritin o zyrtec Mantenga geni hidratacin y un seguimiento adecuados con vaz jennifer programada el mircoles - Post Discharge Activity
== END 2019-04-09 09:00 | disposition home or self-care (01) ==
LOC: JERFT 08:16
DX: R07.0 Pain in throat (principal); I25.10 Atherosclerotic heart disease of native coronary artery without angina pectoris; I10 Essential (primary) hypertension; Z95.5 Presence of coronary angioplasty implant and graft; I25.2 Old myocardial infarction; E11.9 Type 2 diabetes mellitus without complications; Z79.4 Long term (current) use of insulin; K21.9 Gastro-esophageal reflux disease without esophagitis; D64.9 Anemia, unspecified; Z85.46 Personal history of malignant neoplasm of prostate; Z88.8 Allergy status to other drugs, medicaments and biological substances
CPT/HCPCS: 99281-25

== ENCOUNTER 2019-05-11 11:50 | Inpatient (IN) | payer MEDICARE, OTHER ==
[2019-05-11 12:02] VITALS: BMI 30.9
--- NOTE | 2019-05-11 12:09 | PDOC ---
History of Present Illness - General Chief Complaint: CVA/TIA Stated Complaint: R/O STROKE Time Seen by Provider: 05/11/19 12:01 History Source: Patient, Family - History of Present Illness Initial Comments: 05/11/19 12:35 Mr. Bangura is a 68 y/o Macedonian speaking man with hx DM, HTN presenting today with two days of facial numbness and fingertip paresthesias. He reports that yesterday he was feeling his normal self, when he began to note numbness around his lips. He reports that he became concerned and presented to his PCP, who attributed his symptoms at that time to his blood sugar. Per his son, his blood glucose was 50 at that time. His son reports that his father's speech has been more slurred today than it was yesterday, but that he first began to have slurred speech several months ago after returning from the [place]. He reports mild weakness in his LUE, but denies any confusion, fatigue, nausea, vomiting, changes in vision, weakness, or difficulty ambulating. He has no prior stroke or TIA history, and no history of migraines. Last known well time: 05/10/19 @ approx 0800 Past History - Past Medical History Allergies/Adverse Reactions: Allergies Allergy/AdvReac Type Severity Reaction Status Date / Time lisinopril Allergy Severe Swelling Verified 05/11/19 11:57 Home Medications: Ambulatory Orders Furosemide 40 mg PO DAILY 08/08/17 Atorvastatin Ca [Lipitor] 40 mg PO HS 01/16/18 Insulin (LOG) Aspart [NovoLOG -] 18 units SQ BID 01/16/18 Insulin Detemir [Levemir Flextouch] 34 unit SQ BID 10/23/18 Meloxicam 15 mg PO DAILY 10/23/18 Ranitidine [Zantac -] 150 mg PO BID 10/23/18 Carvedilol 25 mg PO BID 12/24/18 Gabapentin 300 mg PO DAILY 12/24/18 Labetalol HCl [Normodyne -] 200 mg PO BID 12/24/18 Levothyroxine Sodium [Levoxyl] 25 mcg PO DAILY 12/24/18 Sodium Bicarbonate - 650 mg PO BID 12/24/18 Anemia: Yes Asthma: No Cancer: Yes (prostate, CHEMO) Cardiac Disorders: Yes ([place]: 2012, CARDIAC STENTING) CVA: No COPD: No CHF: No Dementia: No Diabetes: Yes GI Disorders: Yes (GERD) Disorders: Yes (BLADDER MASS RESECTED IN DECEMBER 2015) HTN: Yes Hypercholesterolemia: Yes Liver Disease: No Seizures: No Thyroid Disease: No - Surgical History Abdominal Surgery: No Appendectomy: No Cardiac Surgery: Yes (STENT X1 2007) Cholecystectomy: No Lung Surgery: No Neurologic Surgery: No Orthopedic Surgery: No - Immunization History Immunization Up to Date: Yes - Psycho Social/Smoking Cessation Hx Smoking Status: No Smoking History: Never smoked Have you smoked in the past 12 months: No Number of Cigarettes Smoked Daily: 3 If you are a former smoker, when did you quit?: 1 YEAR AGO Information on smoking cessation initiated: No 'Breaking Loose' booklet given: 09/06/17 Hx Alcohol Use: No Drug/Substance Use Hx: No Substance Use Type: None Hx Substance Use Treatment: No Review of Systems - Review of Systems Able to Perform ROS?: Yes Comments:: 05/11/19 12:49 ROS: GENERAL/CONSTITUTIONAL: Facial weakness, speech slurring. No fever or chills. HEAD, EYES, EARS, NOSE AND THROAT: No change in vision. No ear pain or discharge. No sore throat. CARDIOVASCULAR: No chest pain or shortness of breath RESPIRATORY: No cough, wheezing, or hemoptysis. GASTROINTESTINAL: No nausea, vomiting, diarrhea or constipation. GENITOURINARY: No dysuria, frequency, or change in urination. MUSCULOSKELETAL: No joint or muscle swelling or pain. No neck or back pain. SKIN: No rash NEUROLOGIC: L arm weakness. No headache, vertigo, loss of consciousness ENDOCRINE: No increased thirst. No abnormal weight change HEMATOLOGIC/LYMPHATIC: No anemia, easy bleeding, or history of blood clots. ALLERGIC/IMMUNOLOGIC: No hives or skin allergy. *Physical Exam - Vital Signs Last Vital Signs Temp Pulse Resp BP Pulse Ox 97.5 F L 77 16 135/73 97 05/11/19 11:57 05/11/19 11:57 05/11/19 11:57 05/11/19 11:57 05/11/19 11:57 - Physical Exam Comments: 05/11/19 12:41 PE: GENERAL: Mild speech slurring. Awake, alert, and fully oriented, in no acute distress HEAD: No signs of trauma, normocephalic, atraumatic EYES: PERRLA, EOMI, sclera anicteric, conjunctiva clear ENT: Auricles normal inspection, hearing grossly normal, nares patent, oropharynx clear without exudates. Moist mucosa NECK: Normal ROM, supple, no lymphadenopathy, JVD, or masses LUNGS: No distress, speaks full sentences, clear to auscultation bilaterally HEART: Regular rate and rhythm, normal S1 and S2, no murmurs, rubs or gallops, peripheral pulses normal and equal bilaterally. ABDOMEN: Soft, nontender, normoactive bowel sounds. No guarding, no rebound. No masses EXTREMITIES : Normal inspection, Normal range of motion, no edema. No clubbing or cyanosis SKIN: Warm, Dry, normal turgor, no rashes or lesions noted NEUROLOGICAL: CNI Not tested. PERRLA. No restrictions to pupillary or eyelid range of motion. No facial droop. Mild slurring of speech. Diminished sensation in regions of V2, V3. Hearing equal bilaterally. Shoulder shrug and head rotation intact without pain. Tongue movements intact. 5/5 strength in upper and lower extremities, sensation equal bilaterally between upper and lower extremities. No focal sensorimotor deficits ED Treatment Course - LABORATORY CBC & Chemistry Diagram: 05/11/19 13:05 05/11/19 13:05 Medical Decision Making - Medical Decision Making 05/11/19 12:50 68M with hx DM, HTN p/w two days of facial numbness, arm weakness that worsened acutely today, recently evaluated by PMD, diminished facial sensation in regions V2, V3 without other changes in strength/sensation on physical exam. Differential includes TIA/CVA given change in neuro symptoms since yesterday alongside risk factors of age, DM, HTN, although he is not within the tPA window. Complex migraine is also possible given neuro symptoms. Hypo/ hyperglycemia also possible given vague neuro symptoms. Plan: CT head w/o contrast r/o stroke CBC CMP Cardiac profile EKG CXR PT/INR PTT POC glucose Neuro consult Dispo: Likely admit given age, risk factors. --- POC: 210 05/11/19 13:[address] Kirkpatrick (neurology). Plan for inpatient admission, MRI tomorrow. Acute stroke unlikely at this time but further imaging merited given age, risk factors. Plan for 100mg gabapentin BID for possible trigeminal neuralgia. Discharge - Discharge Information Problems reviewed: Yes Clinical Impression/Diagnosis: Left facial numbness Condition: Stable - Follow up/Referral Referrals: Shine Langley MD [Primary Care Provider] - - Patient Discharge Instructions - Post Discharge Activity
--- NOTE | 2019-05-11 12:28 | PDOC ---
Attending Attestation - Resident Resident Name: Stevo Verde - ED Attending Attestation I have performed the following: I have examined & evaluated the patient, The case was reviewed & discussed with the resident, I agree w/resident's findings & plan, Exceptions are as noted - HPI HPI: 05/11/19 13:31 68 M with h/o HTN, DM presenting to ED with facial numbness and LUE numbness. Pt states that his symptoms began yesterday as numbness around his L cheek. Pt saw his PMD who attributed his symptoms to his diabetes. Pt went home and awoke this morning with worsening numbness. He states that it has spread across his L face and is now affecting his L fingertips as well. Pt denies any weakness. Son notes that the pt's speech has also been slurred recently. He states that this first started a month ago when he had a "sore throat'. However, he notes that it worsened yesterday. - Physicial Exam PE: 05/11/19 13:37 "GENERAL: Awake, alert, and fully oriented, in no acute distress. HEAD: No signs of trauma EYES: PERRLA, EOMI, sclera anicteric, conjunctiva clear ENT: Auricles normal inspection, hearing grossly normal, nares patent, oropharynx clear without exudates. Moist mucosa NECK: Nontender, no stepoffs, Normal ROM, supple, no lymphadenopathy, JVD, or masses LUNGS: Breath sounds equal, clear to auscultation bilaterally. No wheezes, and no crackles HEART: Regular rate and rhythm, normal S1 and S2, no murmurs, rubs or gallops ABDOMEN: Soft, nontender, normoactive bowel sounds. No guarding, no rebound. No masses EXTREMITIES: Normal range of motion, no edema. No clubbing or cyanosis. No cords, erythema, or tenderness NEUROLOGICAL: Cranial nerves II through XII intact. + diminished sensation to L face and L hand, 5/5 strength and sensation in all other extremities, Normal speech, normal gait, normal cerebellar function SKIN: Warm, Dry, normal turgor, no rashes or lesions noted." - Medical Decision Making 05/11/19 13:38 68 M with L sided paresthesias, slurred speech. Suspicious for CVA. NIHSS 2, outside window for tpa. - Labs - CT head - Neuro c/s NIH Stroke Scale - Last Known Well Date/Time & Onset Date Last Known Well: 05/10/19 - Initial Evaluation Level of consciousness: Alert Ask patient the month and their age: Answers both correctly Ask patient to open & close eyes; make fist and let go: Obeys both correctly Best gaze (horizontal eye movement): Normal Visual field testing: No visual field loss Facial paresis (Show teeth/raise eyebrows/close eyes tight): Normal symmetrical movement Motor Function: Left Arm: Normal Motor Function: Right Arm: Normal (extends arm 90 (or 45) degrees for 10 seconds without drift Motor Function: Left Leg: Normal (extends leg 30 degrees for 5 seconds without drift) Motor Function: Right Leg: Normal (extends leg 30 degrees for 5 seconds without drift) Limb Ataxia: No ataxia Sensory(Use pinprick test arms,legs,trunk,face/side to side): Mild to moderate decrease in sensation Best language (Describe picture, name items, read sentences): No Aphasia Dysarthria (read several words): Mild to moderate slurring of words Extinction and Inattention: No abnormality - Total Score NIH Stroke Scale Score: 2
[2019-05-11] MEDS: SODIUM CHLORIDE 1,000 ML IV SCH (13:09)
[2019-05-11 13:15] LABS: BASO % 1.2 % (0-2.0); EOS % 2.1 % (0-4.5); HEMATOCRIT 35.1 % (35.4-49); HEMOGLOBIN 11.4 GM/dL (11.7-16.9); LYMPH % 21.6 % (8-40); MCH 26.7 pg (25.7-33.7); MCHC 32.4 g/dl (32.0-35.9); MEAN CELL VOLUME 82.5 fl (80-96); MEAN PLT VOLUME 10.8 fl (7.5-11.1); MONO % 8.2 % (3.8-10.2); NEUT % 66.9 % (42.8-82.8); PLATELET COUNT 147 K/MM3 (134-434); RBC 4.25 M/mm3 (4.00-5.60); RDW 15.3 % (11.9-15.9); WHITE BLOOD COUNT 8.7 K/mm3 (4.0-10.0)
[2019-05-11 13:18] LABS: EPI CELLS 8.6 /HPF (0-5/HPF); HYALINE CASTS 5 /lpf (0-8); PH,URINE 6.5 (5.0-8.0); URINE APPEARANCE CLOUDY; URINE BILIRUBIN NEGATIVE (NEGATIVE); URINE COLOR YELLOW; URINE GLUCOSE (UA) 1+ (NEGATIVE); URINE KETONE NEGATIVE (NEGATIVE); URINE LEUK ESTERASE NEGATIVE (NEGATIVE); URINE NITRITE NEGATIVE (NEGATIVE); URINE PROTEIN 3+ (NEGATIVE); URINE RBC 2 /hpf (0-4); URINE UROBILINOGEN 0.2 mg/dL (0.2-1.0)
[2019-05-11 13:41] LABS: ALBUMIN 3.3 g/dl (3.4-5.0); BILIRUBIN,TOTAL 0.3 mg/dL (0.2-1); BLOOD UREA NITROGEN 28.4 mg/dL (7-18)
[2019-05-11] MEDS ORDERED: GABAPENTIN 100 MG CAPSULE (FP) PO ONE (13:57)
[2019-05-11] MEDS ORDERED: GABAPENTIN 100 MG CAPSULE (FP) ONE (14:00)
[2019-05-11] MEDS ORDERED: ASPIRIN 325 MG ENTERIC COATED TABLET (FP) PO ONE (14:16)
[2019-05-11] MEDS ORDERED: ASPIRIN 325 MG ENTERIC COATED TABLET (FP) ONE (14:41)
--- NOTE | 2019-05-11 14:53 | HP ---
<Gage Hugo - Last Filed: 05/12/19 17:42> Patient seen and examined; please refer to the complete resident documentation that has been prepared above for complete review. All findings independently confirmed within 24 hours of admission by myself. All labs, vitals, and imaging reviewed. Agree with history as documented in chart; I will add that the patient has no progressive symptomatology noted. ER swallow assessment was pending at time of admission. They have a complicated medical history of HTN, CKD, IDDM II, diabetic neuropathy, renal colic, HLD, CAD s/p PCI and prostate cancer presents for elective cystoscopy/left retrograde pyelogram/left ureteroscopy and stent exchange due to left hydropnephrosis. All records are reviewed. Symptoms improved but were suspect for TG neuralgia. This stereotyped symptoms are not made worse with anything in particular but were helped somewhat by the gabapentin 100mg dose given in the ER. UA noted to be positive, normocytic anemia >10 noted, no acute bleeds indicated. 10 sys ROS done and negative aside from HPI PMH reviewed as per HPI PSH significant for urological procedure with aforementioned stenting/removal, etc. Also for PCI FH negative for sudden cardiac or demyelinating conditions SH negative for current EtOH or IVDU. VS labs imaging reviewed NAD, AAO, Resting in bed NC AT EOMI PERRLA HR wnl, s1/2 NIHSS documented per ER assessment confirmed with no new deficits, 5/5 motor strength. Neuro exam from Dr. Kirkpatrick noted and agreed with. NT ND +BS Normal mood, appropriate behavior Trachea midline, no LN or masses EKG preformed; pending official read. NO underlying ischemic changes noted. Microbiology pending; prior review shows ESBL+ E. Coli in 2017 with history of urologic instrumation making her high risk BMP shows AMK with baseline creatinine from earlier this year in the low 2- range and her current Cr >3. A/P: Patient is seen and examined in the ER for aformentioned neurological changes with posibble TIA vs. CVA vs. underlying TG Neuralgia with component of complicated UTI with prior urological instrumentation and ESBL+ history in the past. We will admit her to telemetry and followup MRI and other studies alongside formal neurological recommendations. Titrate gabapentin up per neurology for possible TG neuralgia is it did improve but not resolve her symptoms. Obtaining anemia workup. With +UA will place on abx with merrem and followup culture and blood cultures as well (not septic but did have history of bacteremia from urinary source). She does have an MARY alongside the noted Complicated UTI which is concerning so will obtain ZAMZAM and also consult Dr. Brunson in nephrology. Daily ASA 81mg PO QD, uptitrating lipitor for hypertriglyceridemia, and monitoring her on the floor with neurological consultation. Time spent is 45 mins on this admission Visit type - Emergency Visit Emergency Visit: Yes ED Registration Date: 05/10/19 Care time: The patient presented to the Emergency Department on the above date and was hospitalized for further evaluation of their emergent condition. - New Patient This patient is new to me today: No - Critical Care Critical Care patient: No ATTENDING PHYSICIAN STATEMENT I saw and evaluated the patient. I reviewed the resident's note and discussed the case with the resident. I agree with the resident's findings and plan as documented. SUBJECTIVE: OBJECTIVE: ASSESSMENT AND PLAN: <José Luis Oneill - Last Filed: 05/13/19 13:12> CHIEF COMPLAINT: PCP: HISTORY OF PRESENT ILLNESS: 68yo M with h/o of HTN, CKD stage II, Type 2 DM with neuropathy, CAD without stenting, and prior prostate Ca who presents today with L-sided facial numbness noted as new for the past day. In addition, son at bedside states that the patient had increased slurring of speech today. At time of exam pt's son says his slurring has improved, but is still present compared to his normal. He reports his father had been having episodes of dysarthria for the past month, however today it had worsened compared to his normal. Pt endorses his diabetic neuropathy being chronic and that his numbness in his hands have not increased. Both the pt and son report that they had been at his PCP's office yesterday found to have a glucose level of 50. Denies any new changes in medications. In the ED neurology was contacted who reported this may be likely Trigeminal neuralgia and to give Gabapentin. Pt has been on gabapentin previously without any complications, however notes he does not take it now (without any reason for dc). Pt denies any fever/chills, cough, constitutional symptoms, shortness of breath , chest pain, palpitations, abdominal pain, diarrhea/constipation, recent insect bites, weakness, blurry vision, abnormal gait. Recent Travel: [place] periodically PAST MEDICAL HISTORY: HTN CKD stage II Type 2 DM Diabetic neuropathy CAD with catherization and PCI ballooning Prostate Ca Hypothryoid PAST SURGICAL HISTORY: Cardiac catherization with PIC Cystoscopy with urostogram and L urinary stent exchange Social History: Smoking: Denies Alcohol: Denies Drugs: Denies Allergies lisinopril Allergy (Severe, Verified 05/11/19 11:57) Swelling HOME MEDICATIONS: Home Medications Medication Instructions Recorded Furosemide 40 mg PO DAILY 08/08/17 Atorvastatin Ca [Lipitor] 40 mg PO HS 01/16/18 Insulin (LOG) Aspart [NovoLOG -] 18 units SQ BID 01/16/18 Insulin Detemir [Levemir Flextouch] 34 unit SQ BID 10/23/18 Meloxicam 15 mg PO DAILY 10/23/18 Ranitidine [Zantac -] 150 mg PO BID 10/23/18 Carvedilol 25 mg PO BID 12/24/18 Gabapentin 300 mg PO DAILY 12/24/18 Levothyroxine Sodium [Levoxyl] 25 mcg PO DAILY 12/24/18 Sodium Bicarbonate - 650 mg PO BID 12/24/18 REVIEW OF SYSTEMS As per HPI PHYSICAL EXAMINATION Vital Signs - 24 hr 05/11/19 11:57 Temperature 97.5 F L Pulse Rate 77 Respiratory 16 Rate Blood Pressure 135/73 O2 Sat by Pulse 97 Oximetry (%) GENERAL: Awake, alert, and fully oriented, in no acute distress. HEENT: NC/AT, EUNICE, EOMI without nystagmus, MMM NECK: No JVD, no lymphadenopathy LUNGS: CTA bilaterally. No wheezes, and no crackles. No accessory muscle use. HEART: RRR, normal S1 and S2 without murmur ABDOMEN: Soft, NT/ND, normoactive bowel sounds, no guarding, MUSCULOSKELETAL: Normal range of motion at all joints. No bony deformities or tenderness. No CVA tenderness. XTREMITIES: 2+ pulses, warm, well-perfused. No calf tenderness. No peripheral edema. 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 PSYCHIATRIC: Cooperative. Good eye contact. Appropriate mood and affect. SKIN: Warm, dry, no rashes or lesions noted Laboratory Results - last 24 hr 05/11/19 05/11/19 05/11/19 12:07 13:05 13:05 WBC 8.7 RBC 4.25 Hgb 11.4 L Hct 35.1 L MCV 82.5 MCH 26.7 MCHC 32.4 RDW 15.3 Plt Count 147 MPV 10.8 Absolute Neuts (auto) 5.8 Neutrophils % 66.9 Lymphocytes % 21.6 D Monocytes % 8.2 Eosinophils % 2.1 Basophils % 1.2 Nucleated RBC % 0 Sodium Potassium Chloride Carbon Dioxide Anion Gap BUN Creatinine Est GFR (CKD-EPI)AfAm Est GFR (CKD-EPI)NonAf POC Glucometer 210 Random Glucose Calcium Total Bilirubin AST ALT Alkaline Phosphatase Creatine Kinase 195 Creatine Kinase Index 0.9 CK-MB (CK-2) 1.8 Troponin I 0.02 Total Protein Albumin Triglycerides Cholesterol Total LDL Cholesterol HDL Cholesterol Urine Color Urine Appearance Urine pH Ur Specific [place] Urine Protein Urine Glucose (UA) Urine Ketones Urine Blood Urine Nitrite Urine Bilirubin Urine Urobilinogen Ur Leukocyte Esterase Urine WBC (Auto) Urine RBC (Auto) Urine Casts (Auto) U Epithel Cells (Auto) U Sm Round Cell (Auto) Urine Bacteria (Auto) Blood Type Antibody Screen 05/11/19 05/11/19 05/11/19 13:05 13:05 13:05 WBC RBC Hgb Hct MCV MCH MCHC RDW Plt Count MPV Absolute Neuts (auto) Neutrophils % Lymphocytes % Monocytes % Eosinophils % Basophils % Nucleated RBC % Sodium 139 Potassium 4.0 Chloride 106 Carbon Dioxide 24 Anion Gap 9 BUN 28.4 H Creatinine 3.0 H Est GFR (CKD-EPI)AfAm 23.31 Est GFR (CKD-EPI)NonAf 20.11 POC Glucometer Random Glucose 187 H Calcium 9.0 Total Bilirubin 0.3 AST 16 ALT 26 Alkaline Phosphatase 148 H Creatine Kinase Creatine Kinase Index CK-MB (CK-2) Troponin I Total Protein 7.0 Albumin 3.3 L Triglycerides Cholesterol 164 Total LDL Cholesterol 73 HDL Cholesterol 33 L Urine Color Urine Appearance Urine pH Ur Specific [place] Urine Protein Urine Glucose (UA) Urine Ketones Urine Blood Urine Nitrite Urine Bilirubin Urine Urobilinogen Ur Leukocyte Esterase Urine WBC (Auto) Urine RBC (Auto) Urine Casts (Auto) U Epithel Cells (Auto) U Sm Round Cell (Auto) Urine Bacteria (Auto) Blood Type Antibody Screen 05/11/19 05/11/19 05/11/19 13:05 13:05 13:05 WBC RBC Hgb Hct MCV MCH MCHC RDW Plt Count MPV Absolute Neuts (auto) Neutrophils % Lymphocytes % Monocytes % Eosinophils % Basophils % Nucleated RBC % Sodium Potassium Chloride Carbon Dioxide Anion Gap BUN Creatinine Est GFR (CKD-EPI)AfAm Est GFR (CKD-EPI)NonAf POC Glucometer Random Glucose Calcium Total Bilirubin AST ALT Alkaline Phosphatase Creatine Kinase Creatine Kinase Index CK-MB (CK-2) Troponin I Total Protein Albumin Triglycerides 353 H Cholesterol Total LDL Cholesterol HDL Cholesterol Urine Color Yellow Urine Appearance Cloudy Urine pH 6.5 Ur Specific [place] 1.013 Urine Protein 3+ H Urine Glucose (UA) 1+ H Urine Ketones Negative Urine Blood Negative Urine Nitrite Negative Urine Bilirubin Negative Urine Urobilinogen 0.2 Ur Leukocyte Esterase Negative Urine WBC (Auto) 5-10 Urine RBC (Auto) 2 Urine Casts (Auto) 5 U Epithel Cells (Auto) 8.6 U Sm Round Cell (Auto) Negative Urine Bacteria (Auto) 3513.0 Blood Type O POSITIVE Antibody Screen Negative Active Medications Atorvastatin Calcium (Lipitor -) 40 mg PO HS [facility] Carvedilol (Coreg -) 25 mg PO BID [facility] Last Admin: 05/13/19 10:09 Dose: 25 mg Dipyridamole/Aspirin (Aggrenox -) 1 combo PO BID [facility] Furosemide (Lasix -) 40 mg PO DAILY [facility] Last Admin: 05/13/19 10:09 Dose: 40 mg Gabapentin (Neurontin -) 100 mg PO BID [facility] Last Admin: 05/13/19 10:09 Dose: 300 mg Ceftriaxone Sodium 1 gm/ (Dextrose) 50 mls @ 100 mls/hr IVPB DAILY [facility] Last Admin: 05/13/19 10:09 Dose: 100 mls/hr Meropenem 500 mg/ Dextrose 100 mls @ 200 mls/hr IVPB Q12H [facility] Last Admin: 05/13/19 06:19 Dose: 200 mls/hr Levothyroxine Sodium (Synthroid -) 25 mcg PO AM [facility] Last Admin: 05/13/19 06:19 Dose: 25 mcg ASSESSMENT/PLAN: TIA vs. CVA vs. Trigeminal Neuralgia Type 2 DM with neuropathy Acute on CKD stage II Hypothyroidism CAD history Prostate Ca history --Gabapentin 100mg BID PO for now and increase dose as patient tolerates for greatest effect --Neurology on board and appreciated recommendations --MRI ordered --Cardiac monitoring --Lipitor 40mg HS ordered --Given ASA 162mg in ER; obtain MRI and can give aggrenox if CVA noted as patient has been on ASA due to CAD --Obtain urine studies including UA; to be f/u --Renal U/S ordered --Continue home medications as below: Coreg 25mg BID Lasix 40mg qdaily Synthroid 25mcg FEN: Fluids: None; bedside swallow passed problems Electrolyte abnormalities: None Nutrition: Diabetic diet Dispo: Tele obs due to TIA vs. CVA suspicion Mitali Oneill DO - IM PGY-3 ATTENDING PHYSICIAN STATEMENT I saw and evaluated the patient. I reviewed the resident's note and discussed the case with the resident. I agree with the resident's findings and plan as documented. SUBJECTIVE: OBJECTIVE: ASSESSMENT AND PLAN:
[2019-05-11] MEDS: GABAPENTIN 100 MG CAPSULE (FP) PO SCH (21:46)
[2019-05-11] MEDS: CARVEDILOL 25 MG TABLET (FP) PO SCH (21:46)
[2019-05-11] MEDS ORDERED: ATORVASTATIN CA 40 MG TABLET (FP) PO SCH (22:00)
[2019-05-12] MEDS: LEVOTHYROXINE NA 25 MCG TABLET (FP) PO SCH (06:00)
[2019-05-12 07:36] LABS: HEMATOCRIT 32.5 % (35.4-49); HEMOGLOBIN 10.5 GM/dL (11.7-16.9); MCH 26.6 pg (25.7-33.7); MCHC 32.4 g/dl (32.0-35.9); MEAN CELL VOLUME 82.1 fl (80-96); MEAN PLT VOLUME 11.3 fl (7.5-11.1); PLATELET COUNT 142 K/MM3 (134-434); RBC 3.95 M/mm3 (4.00-5.60); RDW 15.1 % (11.9-15.9); WHITE BLOOD COUNT 7.9 K/mm3 (4.0-10.0)
[2019-05-12 08:20] LABS: CALCIUM 8.6 mg/dL (8.5-10.1); CREATININE 2.8 mg/dL (0.55-1.3); PHOSPHOROUS 3.8 mg/dL (2.5-4.9); POTASSIUM 3.9 mmol/L (3.5-5.1)
[2019-05-12 08:21] LABS: MAGNESIUM 2.3 mg/dL (1.8-2.4)
--- NOTE | 2019-05-12 09:25 | PN ---
Progress Note (short form) - Note Progress Note: He is feeling better and has no symptoms no nausea or vomiting he is eating well tele no arrhythmia noted [place] -Mr. Bangura is a 68 y/o [place] speaking man with hx DM, HTN presenting today with two days of facial numbness and fingertip paresthesias. He reports that yesterday he was feeling his normal self, when he began to note numbness around his lips, his ct head in er shows he had ch thalamic infarct Past Medical History INFORMATION SECURITY Vertigo Cardio/Vascular CAD,HTN,Hyperlipdemia,PA Gastrointestinal Diverticulosis,GERD Renal/ Renal Inusuff,BPH,Cancer,Hematuria,Renal Calculi ,UTI,Other Heme/Onc Anemia Infectious Disease Other Endocrine Diabetes Mellitus Vital Signs Period Temp Pulse Resp BP Sys/[place] Pulse Ox Last 24 Hr 97.5 F-98.9 F 70-80 16-18 135-167/67-86 95-98 HEENT NAD NECCK SUPPLE LUNGS CLEAR HEART NORMAL HEART SOUNDS EXT NO EDEMA INFORMATION SECURITY HE IS ALERT AND NON FOCAL AT THIS TIME AND AMBULATORY SKIN NO RASH NOTED CBC, BMP 05/12/19 05:45 05/12/19 05:45 Laboratory Results - last 24 hr 05/11/19 05/11/19 05/11/19 12:07 13:05 13:05 WBC 8.7 RBC 4.25 Hgb 11.4 L Hct 35.1 L MCV 82.5 MCH 26.7 MCHC 32.4 RDW 15.3 Plt Count 147 MPV 10.8 Absolute Neuts (auto) 5.8 Neutrophils % 66.9 Lymphocytes % 21.6 D Monocytes % 8.2 Eosinophils % 2.1 Basophils % 1.2 Nucleated RBC % 0 Sodium Potassium Chloride Carbon Dioxide Anion Gap BUN Creatinine Est GFR (CKD-EPI)AfAm Est GFR (CKD-EPI)NonAf POC Glucometer 210 Random Glucose Calcium Phosphorus Magnesium Iron TIBC Iron Saturation Unsaturated IBC Total Bilirubin AST ALT Alkaline Phosphatase Creatine Kinase 195 Creatine Kinase Index 0.9 CK-MB (CK-2) 1.8 Troponin I 0.02 Total Protein Albumin Triglycerides Cholesterol Total LDL Cholesterol HDL Cholesterol Vitamin B12 Serum Folate Urine Color Urine Appearance Urine pH Ur Specific [place] Urine Protein Urine Glucose (UA) Urine Ketones Urine Blood Urine Nitrite Urine Bilirubin Urine Urobilinogen Ur Leukocyte Esterase Urine WBC (Auto) Urine RBC (Auto) Urine Casts (Auto) U Epithel Cells (Auto) U Sm Round Cell (Auto) Urine Bacteria (Auto) Blood Type Antibody Screen 05/11/19 05/11/19 05/11/19 13:05 13:05 13:05 WBC RBC Hgb Hct MCV MCH MCHC RDW Plt Count MPV Absolute Neuts (auto) Neutrophils % Lymphocytes % Monocytes % Eosinophils % Basophils % Nucleated RBC % Sodium 139 Potassium 4.0 Chloride 106 Carbon Dioxide 24 Anion Gap 9 BUN 28.4 H Creatinine 3.0 H Est GFR (CKD-EPI)AfAm 23.31 Est GFR (CKD-EPI)NonAf 20.11 POC Glucometer Random Glucose 187 H Calcium 9.0 Phosphorus Magnesium Iron TIBC Iron Saturation Unsaturated IBC Total Bilirubin 0.3 AST 16 ALT 26 Alkaline Phosphatase 148 H Creatine Kinase Creatine Kinase Index CK-MB (CK-2) Troponin I Total Protein 7.0 Albumin 3.3 L Triglycerides Cholesterol 164 Total LDL Cholesterol 73 HDL Cholesterol 33 L Vitamin B12 Serum Folate Urine Color Urine Appearance Urine pH Ur Specific [place] Urine Protein Urine Glucose (UA) Urine Ketones Urine Blood Urine Nitrite Urine Bilirubin Urine Urobilinogen Ur Leukocyte Esterase Urine WBC (Auto) Urine RBC (Auto) Urine Casts (Auto) U Epithel Cells (Auto) U Sm Round Cell (Auto) Urine Bacteria (Auto) Blood Type Antibody Screen 05/11/19 05/11/19 05/11/19 13:05 13:05 13:05 WBC RBC Hgb Hct MCV MCH MCHC RDW Plt Count MPV Absolute Neuts (auto) Neutrophils % Lymphocytes % Monocytes % Eosinophils % Basophils % Nucleated RBC % Sodium Potassium Chloride Carbon Dioxide Anion Gap BUN Creatinine Est GFR (CKD-EPI)AfAm Est GFR (CKD-EPI)NonAf POC Glucometer Random Glucose Calcium Phosphorus Magnesium Iron TIBC Iron Saturation Unsaturated IBC Total Bilirubin AST ALT Alkaline Phosphatase Creatine Kinase Creatine Kinase Index CK-MB (CK-2) Troponin I Total Protein Albumin Triglycerides 353 H Cholesterol Total LDL Cholesterol HDL Cholesterol Vitamin B12 Serum Folate Urine Color Yellow Urine Appearance Cloudy Urine pH 6.5 Ur Specific [place] 1.013 Urine Protein 3+ H Urine Glucose (UA) 1+ H Urine Ketones Negative Urine Blood Negative Urine Nitrite Negative Urine Bilirubin Negative Urine Urobilinogen 0.2 Ur Leukocyte Esterase Negative Urine WBC (Auto) 5-10 Urine RBC (Auto) 2 Urine Casts (Auto) 5 U Epithel Cells (Auto) 8.6 U Sm Round Cell (Auto) Negative Urine Bacteria (Auto) 3513.0 Blood Type O POSITIVE Antibody Screen Negative 05/12/19 05/12/19 05:45 05:45 WBC 7.9 RBC 3.95 L Hgb 10.5 L Hct 32.5 L MCV 82.1 MCH 26.6 MCHC 32.4 RDW 15.1 Plt Count 142 MPV 11.3 H Absolute Neuts (auto) Neutrophils % Lymphocytes % Monocytes % Eosinophils % Basophils % Nucleated RBC % Sodium 140 Potassium 3.9 Chloride 108 H Carbon Dioxide 26 Anion Gap 5 L BUN 34.0 H Creatinine 2.8 H Est GFR (CKD-EPI)AfAm 25.34 Est GFR (CKD-EPI)NonAf 21.86 POC Glucometer Random Glucose 179 H Calcium 8.6 Phosphorus 3.8 Magnesium 2.3 Iron 36 L TIBC 249 L Iron Saturation 14 L Unsaturated IBC 213 Total Bilirubin AST ALT Alkaline Phosphatase Creatine Kinase Creatine Kinase Index CK-MB (CK-2) Troponin I Total Protein Albumin Triglycerides Cholesterol Total LDL Cholesterol HDL Cholesterol Vitamin B12 720 Serum Folate 14 Urine Color Urine Appearance Urine pH Ur Specific [place] Urine Protein Urine Glucose (UA) Urine Ketones Urine Blood Urine Nitrite Urine Bilirubin Urine Urobilinogen Ur Leukocyte Esterase Urine WBC (Auto) Urine RBC (Auto) Urine Casts (Auto) U Epithel Cells (Auto) U Sm Round Cell (Auto) Urine Bacteria (Auto) Blood Type Antibody Screen Current Medications Atorvastatin Calcium (Lipitor -) 40 mg PO HS [facility] Last Admin: 05/11/19 21:46 Dose: 40 mg Carvedilol (Coreg -) 25 mg PO BID [facility] Last Admin: 05/11/19 21:46 Dose: 25 mg Furosemide (Lasix -) 40 mg PO DAILY [facility] Gabapentin (Neurontin -) 100 mg PO BID [facility] Last Admin: 05/11/19 21:46 Dose: 100 mg Sodium Chloride (Normal Saline -) 1,000 mls @ 42 mls/hr IV ASDIR [facility] Last Admin: 05/11/19 13:09 Dose: 42 mls/hr Levothyroxine Sodium (Synthroid -) 25 mcg PO AM [facility] Last Admin: 05/12/19 06:00 Dose: 25 mcg problems and plan syncope r/o cva will do mri brain and neuro consult cft it is chronic and will do w/u including renal sono and nephro consult on hydration it is getting better hypothyroidism continue synthroid chf lasix to continue Htn coreg Visit type - Emergency Visit Emergency Visit: Yes ED Registration Date: 05/11/19 Care time: The patient presented to the Emergency Department on the above date and was hospitalized for further evaluation of their emergent condition. - Critical Care Critical Care patient: No - Discharge Referral Referred to [facility] No
[2019-05-12] MEDS: CARVEDILOL 25 MG TABLET (FP) PO SCH ×2 (10:06→22:49)
[2019-05-12] MEDS: GABAPENTIN 100 MG CAPSULE (FP) PO SCH (10:06)
[2019-05-12] MEDS: FUROSEMIDE 40 MG TABLET (FP) PO SCH (10:06)
--- NOTE | 2019-05-12 11:22 | CONSULT ---
Consult - text type - Consultation Consultation Note: Neurology CHIEF COMPLAINT:facial discomfort HISTORY OF PRESENT ILLNESS: Mr. Bangura is a 68 y/o [place] speaking man with hx DM, HTN , CKD, presented day of admission with two days of facial numbness and fingertip paresthesias. He reports that yesterday, he was feeling his normal self, when he began to note numbness around his lips. Head CT, left thalamic lacunar infarct with moderate volume loss. Pt LDL 73, triglycerides 353. Pt being treated for L facial numbness alongside of V2/V3 cranial nerve distribution increasing in the recent history. MRI ordered, not yet completed. Pt continue on home medication including statin 40mg and monitored on Tele. Contacted by ER on admission and possibly component of trigeminal neuralgia and therefore started him on akash 100 bid which has helped, will increase to 300mg twice daily. Still subjective paresthesias, should complete MRI to rule out infarct. Recent Travel: PAST MEDICAL HISTORY: DM, HTN, CKD PAST SURGICAL HISTORY: Social History: Smoking: Alcohol: Drugs: Allergies lisinopril Allergy (Severe, Verified 05/11/19 11:57) Swelling HOME MEDICATIONS: Home Medications Medication Instructions Recorded Furosemide 40 mg PO DAILY 08/08/17 Atorvastatin Ca [Lipitor] 40 mg PO HS 01/16/18 Insulin (LOG) Aspart [NovoLOG -] 18 units SQ BID 01/16/18 Insulin Detemir [Levemir Flextouch] 34 unit SQ BID 10/23/18 Meloxicam 15 mg PO DAILY 10/23/18 Ranitidine [Zantac -] 150 mg PO BID 10/23/18 Carvedilol 25 mg PO BID 12/24/18 Gabapentin 300 mg PO DAILY 12/24/18 Levothyroxine Sodium [Levoxyl] 25 mcg PO DAILY 12/24/18 Sodium Bicarbonate - 650 mg PO BID 12/24/18 REVIEW OF SYSTEMS CONSTITUTIONAL: Absent: fever, chills, diaphoresis, generalized weakness, malaise, loss of appetite, weight change HEENT: Absent: rhinorrhea, nasal congestion, throat pain, throat swelling, difficulty swallowing, mouth swelling, ear pain, eye pain, visual changes CARDIOVASCULAR: Absent: chest pain, syncope, palpitations, irregular heart rate, lightheadedness , peripheral edema RESPIRATORY: Absent: cough, shortness of breath, dyspnea with exertion, orthopnea, wheezing, stridor, hemoptysis GASTROINTESTINAL: Absent: abdominal pain, abdominal distension, nausea, vomiting, diarrhea, constipation, melena, hematochezia GENITOURINARY: Absent: dysuria, frequency, urgency, hesitancy, hematuria, flank pain, genital pain MUSCULOSKELETAL: Absent: myalgia, arthralgia, joint swelling, back pain, neck pain SKIN: Absent: rash, itching, pallor HEMATOLOGIC/IMMUNOLOGIC: Absent: easy bleeding, easy bruising, lymphadenopathy, frequent infections ENDOCRINE: Absent: unexplained weight gain, unexplained weight loss, heat intolerance, cold intolerance NEUROLOGIC: Absent: headache, focal weakness or paresthesias, dizziness, unsteady gait, seizure, mental status changes, bladder or bowel incontinence PSYCHIATRIC: Absent: anxiety, depression, suicidal or homicidal ideation, hallucinations. PHYSICAL EXAMINATION Vital Signs Period Temp Pulse Resp BP Sys/Grissom Pulse Ox Last 24 Hr 97.5 F-98.9 F 70-80 16-18 135-167/67-86 95-98 GENERAL: Awake, alert, and fully oriented, in no acute distress. HEAD: Normal with no signs of trauma. EYES: Pupils equal, round and reactive to light, extraocular movements intact, sclera anicteric, conjunctiva clear. No lid lag. EARS, NOSE, THROAT: Ears normal, nares patent, oropharynx clear without exudates. Moist mucous membranes. NECK: Normal range of motion, supple without lymphadenopathy, JVD, or masses. LUNGS: Breath sounds equal, clear to auscultation bilaterally. No wheezes, and no crackles. No accessory muscle use. HEART: Regular rate and rhythm, normal S1 and S2 without murmur, rub or gallop. ABDOMEN: Soft, nontender, not distended, normoactive bowel sounds, no guarding, no rebound, no masses. No hepatomegaly or splenomegaly. MUSCULOSKELETAL: Normal range of motion at all joints. No bony deformities or tenderness. No CVA tenderness. UPPER EXTREMITIES: 2+ pulses, warm, well-perfused. No cyanosis. No clubbing. No peripheral edema. LOWER EXTREMITIES: 2+ pulses, warm, well-perfused. No calf tenderness. No peripheral edema. NEUROLOGICAL: Cranial nerves II-XII intact. Normal speech. Normal gait. PSYCHIATRIC: Cooperative. Good eye contact. Appropriate mood and affect. SKIN: Warm, dry, normal turgor, no rashes or lesions noted, normal capillary refill. CBCD WBC 7.9 K/mm3 (4.0-10.0) 05/12/19 05:45 RBC 3.95 M/mm3 (4.00-5.60) L 05/12/19 05:45 Hgb 10.5 GM/dL (11.7-16.9) L 05/12/19 05:45 Hct 32.5 % (35.4-49) L 05/12/19 05:45 MCV 82.1 fl (80-96) 05/12/19 05:45 MCHC 32.4 g/dl (32.0-35.9) 05/12/19 05:45 RDW 15.1 % (11.9-15.9) 05/12/19 05:45 Plt Count 142 K/MM3 (134-434) 05/12/19 05:45 MPV 11.3 fl (7.5-11.1) H 05/12/19 05:45 CMP Sodium 140 mmol/L (136-145) 05/12/19 05:45 Potassium 3.9 mmol/L (3.5-5.1) 05/12/19 05:45 Chloride 108 mmol/L (98-107) H 05/12/19 05:45 Carbon Dioxide 26 mmol/L (21-32) 05/12/19 05:45 Anion Gap 5 MMOL/L (8-16) L 05/12/19 05:45 BUN 34.0 mg/dL (7-18) H 05/12/19 05:45 Creatinine 2.8 mg/dL (0.55-1.3) H 05/12/19 05:45 Random Glucose 179 mg/dL (74-106) H 05/12/19 05:45 Calcium 8.6 mg/dL (8.5-10.1) 05/12/19 05:45 Total Bilirubin 0.3 mg/dL (0.2-1) 05/11/19 13:05 AST 16 U/L (15-37) 05/11/19 13:05 ALT 26 U/L (13-61) 05/11/19 13:05 Alkaline Phosphatase 148 U/L (45-117) H 05/11/19 13:05 Total Protein 7.0 g/dl (6.4-8.2) 05/11/19 13:05 Albumin 3.3 g/dl (3.4-5.0) L 05/11/19 13:05 CARDIAC ENZYMES Creatine Kinase 195 U/L (26-308) 05/11/19 13:05 Troponin I 0.02 ng/ml (0.00-0.05) 05/11/19 13:05 ASSESSMENT/PLAN: Mr. Bangura is a 68 y/o [place] speaking man with hx DM, HTN , CKD, presented with two days of facial numbness and fingertip paresthesias. He reports that yesterday, he was feeling his normal self, when he began to note numbness around his lips. Head CT, left thalamic lacunar infarct with moderate volume loss. Pt LDL 73, triglycerides 353. Pt being treated for L facial numbness alongside of V2/V3 cranial nerve distribution increasing in the recent history. MRI ordered, not yet completed. Pt continue on home medication including statin 40mg and monitored on Tele. Contacted by ER on admission and possibly component of trigeminal neuralgia and therefore started him on akash 100 bid which has helped, will increase to 300mg twice daily. Still subjective paresthesias, should complete MRI to rule out infarct. Monitor BP, maintain normotensive range. Contiue Statin. Facial exercises. Monitor glucose, maintain euglycemic range.
[2019-05-12] MEDS: SODIUM CHLORIDE 1,000 ML IV SCH (12:44)
[2019-05-12] MEDS ORDERED: ATORVASTATIN CA 40 MG TABLET (FP) PO SCH (17:38)
[2019-05-12] MEDS ORDERED: CEFTRIAXONE 1 GM in DEXTROSE 5%-WATER - 50 ML IVPB SCH (17:45)
[2019-05-12] MEDS ORDERED: MEROPENEM 500 MG VIAL (RESTRICTED TO ID) IVPB ONE (18:03)
[2019-05-12] MEDS ORDERED: DEXTROSE 5%-WATER 100 ML IVPB ONE (18:04)
[2019-05-12] MEDS: MEROPENEM 500 MG in DEXTROSE 5%-WATER 100 ML IVPB SCH (18:08)
[2019-05-12] MEDS: ASPIRIN 81 MG CHEWABLE TABLETS PO SCH (18:09)
--- NOTE | 2019-05-12 19:47 | CONSULT ---
Consult Consult Specialty:: Nephrology Reason for Consultation:: CKD - History of Present Illness Chief Complaint: facial numbness History of Present Illness: Pt is a 68 year old male with pmhx of dm, htn, and ckd who presents to the ER with facila numbness and fingertip paresthesias. He was found to have infarcts on the MRI. 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 He does have history of CKD and he follows wit Dr Avila. He denies dysuria or hematuria. He denies shortness of breath or chest pain. He denies nsaid use. He denies fevers or chills. He denies headache. 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 Cardio/Vascular: Yes: CAD (s/p stenting), HTN, Hyperlipdemia, [place] Gastrointestinal: Yes: Diverticulosis, GERD Renal/: Yes: Renal Inusuff, BPH, Cancer (Prostate), Hematuria, Renal Calculi, UTI (ESBL), Other Infectious Disease: Yes: Other (ESBL UTI) Musculoskeletal: Yes: Other (Osteoarthritis) Endocrine: Yes: Diabetes Mellitus - Past Surgical History Past Surgical History: Yes: Prostatectomy, Stent (PCI, ureteral stenting) - Alcohol/Substance Use Hx Alcohol Use: No History of Substance Use: reports: None - Smoking History Smoking history: Former smoker Have you smoked in the past 12 months: No Aproximately how many cigarettes per day: 3 If you are a former smoker, when did you quit?: 1 YEAR AGO - Social History ADL: Independent History of Recent Travel: No Home Medications - Allergies Allergies/Adverse Reactions: Allergies Allergy/AdvReac Type Severity Reaction Status Date / Time lisinopril Allergy Severe Swelling Verified 05/11/19 11:57 - Home Medications Home Medications: Ambulatory Orders Amlodipine Besylate [Norvasc -] 10 mg PO DAILY 05/11/19 Atorvastatin Ca [Lipitor] 40 mg PO HS 05/11/19 Carvedilol [Coreg -] 25 mg PO BID 05/11/19 Hydralazine HCl 100 mg PO TID 05/11/19 Labetalol HCl [Normodyne -] 600 mg PO BID 05/11/19 Sodium Bicarbonate - 650 mg PO BID 05/11/19 Family Medical History Family History: Denies Review of Systems - Review of Systems Constitutional: reports: Malaise Eyes: reports: No Symptoms HENT: reports: No Symptoms Neck: reports: No Symptoms Cardiovascular: reports: No Symptoms Respiratory: reports: No Symptoms Gastrointestinal: reports: No Symptoms Genitourinary: reports: No Symptoms Musculoskeletal: reports: No Symptoms Integumentary: reports: No Symptoms Neurological: reports: Numbness Endocrine: reports: No Symptoms Hematology/Lymphatic: reports: No Symptoms Psychiatric: reports: No Symptoms Physical Exam Vital Signs: Vital Signs Temperature 99.4 F 05/12/19 15:00 Pulse Rate 76 05/12/19 15:00 Respiratory Rate 18 05/12/19 15:00 Blood Pressure 143/89 05/12/19 15:00 O2 Sat by Pulse Oximetry (%) 95 05/11/19 21:00 Constitutional: Yes: Calm Eyes: Yes: Conjunctiva Clear HENT: Yes: Atraumatic Cardiovascular: Yes: S1, S2 Respiratory: Yes: CTA Bilaterally Gastrointestinal: Yes: Soft Renal/: Yes: WNL Musculoskeletal: Yes: WNL Edema: No Neurological: Yes: Oriented Psychiatric: Yes: Oriented Labs: CBC, BMP 05/12/19 05:45 05/12/19 05:45 Laboratory Tests 12/15/18 12/24/18 03/02/19 08:50 01:50 08:37 Creatinine 2.6 H 2.1 H 2.5 H 05/11/19 05/12/19 13:05 05:45 Creatinine 3.0 H 2.8 H Imaging - Results Ultrasound: Report Reviewed MRI: Report Reviewed Problem List - Problems (1) CKD (chronic kidney disease) Code(s): N18.9 - CHRONIC KIDNEY DISEASE, UNSPECIFIED (2) Left facial numbness Code(s): R20.0 - ANESTHESIA OF SKIN Assessment/Plan Current Medications Generic Name Dose Route Start Last Admin Trade Name Freq PRN Reason Stop Dose Admin Aspirin 81 mg 05/12/19 17:30 05/12/19 18:09 Asa - PO 81 mg DAILY [facility]IND[facility] Administration Atorvastatin Calcium 80 mg 05/12/19 17:38 Lipitor - PO HS LINDSE[facility] Carvedilol 25 mg 05/11/19 22:00 05/12/19 10:06 Coreg - PO 25 mg BID LIND[facility] Administration Furosemide 40 mg 05/12/19 10:00 05/12/19 10:06 Lasix - PO 40 mg DAILY [facility] Administration Gabapentin 300 mg 05/12/19 12:37 Neurontin - PO BID [facility] Ceftriaxone Sodium 1 gm/ 50 mls @ 100 mls/hr 05/13/19 10:00 Dextrose IVPB DAILY [facility] Meropenem 500 mg/ Dextrose 100 mls @ 200 mls/hr 05/12/19 17:45 05/12/19 18:08 IVPB 200 mls/hr Q12H [facility] Administration Levothyroxine Sodium 25 mcg 05/12/19 07:00 05/12/19 06:00 Synthroid - PO 25 mcg AM [facility] Administration Impression 1. CKD 2. CVA 3. htn 4. DM 5. hypothyroids 6. left hydro Plan - monitor renal function - urology eval for hydro - monitor bp and avoid hypotension - will trend boiler control technician - will obtain outpt records to check baseline boiler control technician
[2019-05-12] MEDS ORDERED: MELATONIN 5 MG TABLETS PO ONE (22:33)
[2019-05-12] MEDS: GABAPENTIN 300 MG CAPSULE (FP) PO SCH (22:49)
[2019-05-13] MEDS ORDERED: DEXTROSE 5%-WATER 100 ML IVPB ONE (05:25)
[2019-05-13] MEDS ORDERED: MEROPENEM 500 MG VIAL (RESTRICTED TO ID) IVPB ONE (05:25)
[2019-05-13] MEDS: MEROPENEM 500 MG in DEXTROSE 5%-WATER 100 ML IVPB SCH (06:19)
[2019-05-13] MEDS: LEVOTHYROXINE NA 25 MCG TABLET (FP) PO SCH (06:19)
[2019-05-13] MEDS ORDERED: cefTRIAXone SODIUM 1 GM VIAL ONE (10:05)
[2019-05-13] MEDS ORDERED: DEXTROSE 5%-WATER - 50 ML IVPB ONE (10:05)
[2019-05-13] MEDS: FUROSEMIDE 40 MG TABLET (FP) PO SCH (10:09)
[2019-05-13] MEDS: CEFTRIAXONE 1 GM in DEXTROSE 5%-WATER - 50 ML IVPB SCH (10:09)
[2019-05-13] MEDS: ASPIRIN 81 MG CHEWABLE TABLETS PO SCH (10:09)
[2019-05-13] MEDS: CARVEDILOL 25 MG TABLET (FP) PO SCH ×2 (10:09→22:14)
[2019-05-13] MEDS: GABAPENTIN 300 MG CAPSULE (FP) PO SCH ×2 (10:09→22:14)
--- NOTE | 2019-05-13 11:13 | PN ---
Progress Note (short form) - Note Progress Note: He is feeling better and has no symptoms no nausea or vomiting he is eating well tele no arrhythmia noted He had MRI done of his brain yesterday which showed he has multiple area of infarct small infarcts reported in the chart. I explained to both the patient [place] -Mr. Bangura is a 68 y/o [place] speaking man with hx DM, HTN presenting today with two days of facial numbness and fingertip paresthesias. 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 Cardio/Vascular CAD,HTN,Hyperlipdemia,[place] Gastrointestinal Diverticulosis,GERD Renal/ Renal Inusuff,BPH,Cancer,Hematuria,Renal Calculi ,UTI,Other Heme/Onc Anemia Infectious Disease Other Endocrine Diabetes Mellitus Vital Signs Period Temp Pulse Resp BP Sys/Grissom Pulse Ox Last 24 Hr 97.8 F-99.4 F 67-76 18-20 132-173/76-89 97-99 HEENT NAD NECCK SUPPLE LUNGS CLEAR HEART NORMAL HEART SOUNDS EXT NO EDEMA 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 HE IS ALERT AND NON FOCAL AT THIS TIME AND AMBULATORY SKIN NO RASH NOTED CBC, BMP 05/12/19 05:45 05/12/19 05:45 Current Medications Atorvastatin Calcium (Lipitor -) 40 mg PO HS [facility] Last Admin: 05/11/19 21:46 Dose: 40 mg Carvedilol (Coreg -) 25 mg PO BID [facility] Last Admin: 05/11/19 21:46 Dose: 25 mg Furosemide (Lasix -) 40 mg PO DAILY [facility] Gabapentin (Neurontin -) 100 mg PO BID [facility] Last Admin: 05/11/19 21:46 Dose: 100 mg Sodium Chloride (Normal Saline -) 1,000 mls @ 42 mls/hr IV ASDIR [facility] Last Admin: 05/11/19 13:09 Dose: 42 mls/hr Levothyroxine Sodium (Synthroid -) 25 mcg PO AM [facility] Last Admin: 05/12/19 06:00 Dose: 25 mcg problems and plan Syncope due to acute CVA Patient is already seen by neurologist and he is already on antithrombotic agent aspirin. I have ordered carotid sonogram rule out stenosis to be followed up His gait is normal he has no focal weakness Still there is no arrhythmia on telemetry Chronic renal insufficiency with acute component it is chronic and will do w/u including renal sono and nephro consult on hydration it is getting better His creatinine is coming down. hypothyroidism continue synthroid chf lasix to continue Htn coreg Visit type - Emergency Visit Emergency Visit: Yes ED Registration Date: 05/11/19 Care time: The patient presented to the Emergency Department on the above date and was hospitalized for further evaluation of their emergent condition. - New Patient This patient is new to me today: No - Critical Care Critical Care patient: No - Discharge Referral Referred to [facility] Med [facility] No
--- NOTE | 2019-05-13 11:20 | PN ---
Progress Note (short form) - Note Progress Note: Neurology CHIEF COMPLAINT:facial discomfort HISTORY OF PRESENT ILLNESS: Mr. Bangura is a 68 y/o [place] speaking man with hx DM, HTN , CKD, presented day of admission with two days of facial numbness and fingertip paresthesias. He reports that yesterday, he was feeling his normal self, when he began to note numbness around his lips. Head CT, left thalamic lacunar infarct with moderate volume loss. Pt LDL 73, triglycerides 353. Pt being treated for L facial numbness alongside of V2/V3 cranial nerve distribution increasing in the recent history. MRI ordered, not yet completed. Pt continue on home medication including statin 40mg and monitored on Tele. Contacted by ER on admission and possibly component of trigeminal neuralgia and therefore started him on akash 100 bid which has helped, will increase to 300mg twice daily. Still subjective paresthesias, MRI completed, small acute infarct on right side of splenium of corpus callosum, small acute infarct within the right paramedian aspect of midbrain. Discussed with patient and he was taking ASA 81 at home regularly therefore considered ASA failure. Advised to switch to aggrenox for increased protection. Since LDL 73, does not require statin 80 and can remain on statin 40. Active Medications Aspirin (Asa -) 81 mg PO DAILY [facility] Last Admin: 05/13/19 10:09 Dose: 81 mg Atorvastatin Calcium (Lipitor -) 80 mg PO HS [facility] Last Admin: 05/12/19 22:49 Dose: 80 mg Carvedilol (Coreg -) 25 mg PO BID [facility] Last Admin: 05/13/19 10:09 Dose: 25 mg Furosemide (Lasix -) 40 mg PO DAILY [facility] Last Admin: 05/13/19 10:09 Dose: 40 mg Gabapentin (Neurontin -) 300 mg PO BID [facility] Last Admin: 05/13/19 10:09 Dose: 300 mg Ceftriaxone Sodium 1 gm/ (Dextrose) 50 mls @ 100 mls/hr IVPB DAILY [facility] Last Admin: 05/13/19 10:09 Dose: 100 mls/hr Meropenem 500 mg/ Dextrose 100 mls @ 200 mls/hr IVPB Q12H [facility] Last Admin: 05/13/19 06:19 Dose: 200 mls/hr Levothyroxine Sodium (Synthroid -) 25 mcg PO AM [facility] Last Admin: 05/13/19 06:19 Dose: 25 mcg PHYSICAL EXAMINATION Vital Signs Period Temp Pulse Resp BP Sys/Grissom Pulse Ox Last 24 Hr 97.8 F-99.4 F 67-76 18-20 132-173/76-89 97-99 GENERAL: Awake, alert, and fully oriented, in no acute distress. HEAD: Normal with no signs of trauma. EYES: Pupils equal, round and reactive to light, extraocular movements intact, sclera anicteric, conjunctiva clear. No lid lag. EARS, NOSE, THROAT: Ears normal, nares patent, oropharynx clear without exudates. Moist mucous membranes. NECK: Normal range of motion, supple without lymphadenopathy, JVD, or masses. LUNGS: Breath sounds equal, clear to auscultation bilaterally. No wheezes, and no crackles. No accessory muscle use. HEART: Regular rate and rhythm, normal S1 and S2 without murmur, rub or gallop. ABDOMEN: Soft, nontender, not distended, normoactive bowel sounds, no guarding, no rebound, no masses. No hepatomegaly or splenomegaly. MUSCULOSKELETAL: Normal range of motion at all joints. No bony deformities or tenderness. No CVA tenderness. UPPER EXTREMITIES: 2+ pulses, warm, well-perfused. No cyanosis. No clubbing. No peripheral edema. LOWER EXTREMITIES: 2+ pulses, warm, well-perfused. No calf tenderness. No peripheral edema. NEUROLOGICAL: Cranial nerves II-XII intact. Normal speech. Normal gait. PSYCHIATRIC: Cooperative. Good eye contact. Appropriate mood and affect. SKIN: Warm, dry, normal turgor, no rashes or lesions noted, normal capillary refill. CBCD WBC 7.9 K/mm3 (4.0-10.0) 05/12/19 05:45 RBC 3.95 M/mm3 (4.00-5.60) L 05/12/19 05:45 Hgb 10.5 GM/dL (11.7-16.9) L 05/12/19 05:45 Hct 32.5 % (35.4-49) L 05/12/19 05:45 MCV 82.1 fl (80-96) 05/12/19 05:45 MCHC 32.4 g/dl (32.0-35.9) 05/12/19 05:45 RDW 15.1 % (11.9-15.9) 05/12/19 05:45 Plt Count 142 K/MM3 (134-434) 05/12/19 05:45 MPV 11.3 fl (7.5-11.1) H 05/12/19 05:45 CMP Sodium 140 mmol/L (136-145) 05/12/19 05:45 Potassium 3.9 mmol/L (3.5-5.1) 05/12/19 05:45 Chloride 108 mmol/L (98-107) H 05/12/19 05:45 Carbon Dioxide 26 mmol/L (21-32) 05/12/19 05:45 Anion Gap 5 MMOL/L (8-16) L 05/12/19 05:45 BUN 34.0 mg/dL (7-18) H 05/12/19 05:45 Creatinine 2.8 mg/dL (0.55-1.3) H 05/12/19 05:45 Random Glucose 179 mg/dL (74-106) H 05/12/19 05:45 Calcium 8.6 mg/dL (8.5-10.1) 05/12/19 05:45 Total Bilirubin 0.3 mg/dL (0.2-1) 05/11/19 13:05 AST 16 U/L (15-37) 05/11/19 13:05 ALT 26 U/L (13-61) 05/11/19 13:05 Alkaline Phosphatase 148 U/L (45-117) H 05/11/19 13:05 Total Protein 7.0 g/dl (6.4-8.2) 05/11/19 13:05 Albumin 3.3 g/dl (3.4-5.0) L 05/11/19 13:05 CARDIAC ENZYMES Creatine Kinase 195 U/L (26-308) 05/11/19 13:05 Troponin I 0.02 ng/ml (0.00-0.05) 05/11/19 13:05 ASSESSMENT/PLAN: Mr. Bangrua is a 68 y/o Polish speaking man with hx DM, HTN , CKD, presented with two days of facial numbness and fingertip paresthesias. He reports that yesterday, he was feeling his normal self, when he began to note numbness around his lips. Head CT, left thalamic lacunar infarct with moderate volume loss. Pt LDL 73, triglycerides 353. Pt being treated for L facial numbness alongside of V2/V3 cranial nerve distribution increasing in the recent history. MRI ordered, not yet completed. Pt continue on home medication including statin 40mg and monitored on Tele. Contacted by ER on admission and possibly component of trigeminal neuralgia and therefore started him on akash 100 bid which has helped, will increase to 300mg twice daily. Still subjective paresthesias, Still subjective paresthesias, MRI completed, small acute infarct on right side of splenium of corpus callosum, small acute infarct within the right paramedian aspect of midbrain. Discussed with patient and he was taking ASA 81 at home regularly therefore considered ASA failure. Advised to switch to aggrenox for increased protection. Since LDL 73, does not require statin 80 and can remain on statin 40. Monitor BP, maintain normotensive range. Contiue Statin. Facial exercises. Monitor glucose, maintain euglycemic range.
[2019-05-13] MEDS ORDERED: ATORVASTATIN CA 40 MG TABLET (FP) PO SCH (12:15)
--- NOTE | 2019-05-13 13:46 | CON.ID ---
Consult Consult Specialty:: infectious diseases Referred by:: Reason for Consultation:: left sided facial numbness - History of Present Illness Chief Complaint: left sided facial numbness History of Present Illness: 68 M with h/o HTN, DM presenting with facial numbness and LUE numbness.patient mentions that he lue numbness has improved and his facial numbness is also better Pt states that his symptoms began as numbness around his L cheek. Pt saw his PMD who attributed his symptoms to his diabetes. Pt went home and and according to him the numbness worsened. He states that it has spread across his L face and affected his L fingertips as well. Pt denies any weakness. Son notes that the pt's speech has also been slurred recently. He states that this first started a month ago when he had a "sore throat'. 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 Cardio/Vascular: Yes: CAD (s/p stenting), HTN, Hyperlipdemia, PA Gastrointestinal: Yes: Diverticulosis, GERD Renal/: Yes: Renal Inusuff, BPH, Cancer (Prostate), Hematuria, Renal Calculi, UTI (ESBL), Other Infectious Disease: Yes: Other (ESBL UTI) Musculoskeletal: Yes: Other (Osteoarthritis) Endocrine: Yes: Diabetes Mellitus - Past Surgical History Past Surgical History: Yes: Prostatectomy, Stent (PCI, ureteral stenting) - Alcohol/Substance Use Hx Alcohol Use: No History of Substance Use: reports: None - Smoking History Smoking history: Former smoker Have you smoked in the past 12 months: No Aproximately how many cigarettes per day: 3 If you are a former smoker, when did you quit?: 1 YEAR AGO - Social History ADL: Independent History of Recent Travel: No Home Medications - Allergies Allergies/Adverse Reactions: Allergies Allergy/AdvReac Type Severity Reaction Status Date / Time lisinopril Allergy Severe Swelling Verified 05/11/19 11:57 - Home Medications Home Medications: Ambulatory Orders Amlodipine Besylate [Norvasc -] 10 mg PO DAILY 05/11/19 Atorvastatin Ca [Lipitor] 40 mg PO HS 05/11/19 Carvedilol [Coreg -] 25 mg PO BID 05/11/19 Hydralazine HCl 100 mg PO TID 05/11/19 Labetalol HCl [Normodyne -] 600 mg PO BID 05/11/19 Sodium Bicarbonate - 650 mg PO BID 05/11/19 Review of Systems - Review of Systems Constitutional: reports: No Symptoms Eyes: reports: No Symptoms HENT: reports: No Symptoms Neck: reports: No Symptoms Cardiovascular: reports: No Symptoms Respiratory: reports: No Symptoms Gastrointestinal: reports: No Symptoms Genitourinary: reports: No Symptoms Musculoskeletal: reports: No Symptoms Integumentary: reports: No Symptoms Neurological: reports: Numbness (left cheek and left upper ext), Parasthesia Endocrine: reports: No Symptoms Hematology/Lymphatic: reports: No Symptoms Psychiatric: reports: No Symptoms Physical Exam Vital Signs: Vital Signs Temperature 98.8 F 05/13/19 11:00 Pulse Rate 64 05/13/19 11:00 Respiratory Rate 21 H 05/13/19 11:00 Blood Pressure 164/92 05/13/19 11:00 O2 Sat by Pulse Oximetry (%) 99 05/13/19 08:37 Constitutional: Yes: Well Nourished, Calm, Mild Distress Eyes: Yes: Conjunctiva Clear Neck: Yes: Supple, Trachea Midline Cardiovascular: Yes: Regular Rate and Rhythm Respiratory: Yes: Regular, CTA Bilaterally Gastrointestinal: Yes: Normal Bowel Sounds, Soft Musculoskeletal: Yes: WNL Extremities: Yes: WNL Neurological: Yes: Alert, Oriented, Numbness (left side of face), Other Psychiatric: Yes: Alert, Oriented Labs: CBC, BMP 05/12/19 05:45 05/12/19 05:45 Imaging - Results Chest X-ray: Report Reviewed, Image Reviewed Cat Scan: Report Reviewed, Image Reviewed MRI: Report Reviewed, Image Reviewed Assessment/Plan 1. CKD 2. CVA 3. htn 4. DM 5. hypothyroids 6. left hydro 7.r/o lymes plan will continue ceftriaxone ordered lymes test await for all results rest as per the team
--- NOTE | 2019-05-13 17:29 | PN ---
Progress Note, Physician History of Present Illness: Pt seen and examined at bedside. He is awake and appears comfortable. - Current Medication List Current Medications: Active Medications Atorvastatin Calcium (Lipitor -) 40 mg PO HS [facility] Carvedilol (Coreg -) 25 mg PO BID [facility] Last Admin: 05/13/19 10:09 Dose: 25 mg Dipyridamole/Aspirin (Aggrenox -) 1 combo PO BID [facility] Furosemide (Lasix -) 40 mg PO DAILY [facility] Last Admin: 05/13/19 10:09 Dose: 40 mg Gabapentin (Neurontin -) 300 mg PO BID [facility] Last Admin: 05/13/19 10:09 Dose: 300 mg Ceftriaxone Sodium 1 gm/ (Dextrose) 50 mls @ 100 mls/hr IVPB DAILY [facility] Last Admin: 05/13/19 10:09 Dose: 100 mls/hr Levothyroxine Sodium (Synthroid -) 25 mcg PO AM [facility] Last Admin: 05/13/19 06:19 Dose: 25 mcg - Objective Vital Signs: Vital Signs Temperature 98.6 F 05/13/19 14:13 Pulse Rate 69 05/13/19 14:13 Respiratory Rate 20 05/13/19 14:13 Blood Pressure 169/85 05/13/19 14:13 O2 Sat by Pulse Oximetry (%) 99 05/13/19 08:37 Constitutional: Yes: Calm Eyes: Yes: Conjunctiva Clear HENT: Yes: Atraumatic Neck: Yes: Supple Cardiovascular: Yes: S1, S2 Respiratory: Yes: CTA Bilaterally Gastrointestinal: Yes: Soft Genitourinary: Yes: WNL Musculoskeletal: Yes: WNL Edema: No Integumentary: Yes: WNL Neurological: Yes: Oriented Psychiatric: Yes: Oriented Labs: CBC, BMP 05/12/19 05:45 05/12/19 05:45 Problem List - Problems (1) CKD (chronic kidney disease) Code(s): N18.9 - CHRONIC KIDNEY DISEASE, UNSPECIFIED (2) Left facial numbness Code(s): R20.0 - ANESTHESIA OF SKIN Assessment/Plan Current Medications Generic Name Dose Route Start Last Admin Trade Name Freq PRN Reason Stop Dose Admin Atorvastatin Calcium 40 mg 05/13/19 12:15 Lipitor - PO HS [facility] Carvedilol 25 mg 05/11/19 22:00 05/13/19 10:09 Coreg - PO 25 mg BID [facility] Administration Dipyridamole/Aspirin 1 combo 05/13/19 22:00 Aggrenox - PO BID [facility] Furosemide 40 mg 05/12/19 10:00 05/13/19 10:09 Lasix - PO 40 mg DAILY [facility] Administration Gabapentin 300 mg 05/12/19 12:37 05/13/19 10:09 Neurontin - PO 300 mg BID [facility] Administration Ceftriaxone Sodium 1 gm/ 50 mls @ 100 mls/hr 05/13/19 10:00 05/13/19 10:09 Dextrose IVPB 100 mls/hr DAILY [facility] Administration Levothyroxine Sodium 25 mcg 05/12/19 07:00 05/13/19 06:19 Synthroid - PO 25 mcg AM [facility] Administration Impression 1. CKD 2. CVA 3. htn 4. DM 5. hypothyroids 6. left hydro Plan - repeat labs in am - obtain outpt labs - monitor bp - neuro input appreciatedn - will trend communications lead
--- NOTE | 2019-05-13 20:27 | EKG ---
Test Reason : Blood Pressure : / mmHG Vent. Rate : 076 BPM Atrial Rate : 076 BPM P-R Int : 222 ms QRS Dur : 092 ms QT Int : 376 ms P-R-T Axes : 074 -01 058 degrees QTc Int : 423 ms SINUS RHYTHM WITH 1ST DEGREE A-V BLOCK ANTERIOR INFARCT , AGE UNDETERMINED ABNORMAL ECG WHEN COMPARED WITH ECG OF 22-JUL-2018 21:27, ANTERIOR INFARCT IS NOW PRESENT NONSPECIFIC T WAVE ABNORMALITY, IMPROVED IN INFERIOR LEADS Confirmed by PEDRO BILLS MD ([id number]) on 05/13/2019 8:26:51 PM Referred By: Confirmed By:PEDRO BILLS MD
[2019-05-13] MEDS: ASPIRIN/DIPYRIDAMOLE 25 MG/200 MG CAPSULE PO SCH (22:13)
[2019-05-14] MEDS: LEVOTHYROXINE NA 25 MCG TABLET (FP) PO SCH (06:37)
[2019-05-14] MEDS ORDERED: DEXTROSE 5%-WATER - 50 ML IVPB ONE (08:43)
[2019-05-14] MEDS ORDERED: PT OWN MED DRAWER 7, Y5N ONE (08:43)
[2019-05-14] MEDS ORDERED: cefTRIAXone SODIUM 1 GM VIAL ONE (08:43)
[2019-05-14] MEDS: FUROSEMIDE 40 MG TABLET (FP) PO SCH ×2 (08:47→11:34)
[2019-05-14] MEDS: CARVEDILOL 25 MG TABLET (FP) PO SCH ×2 (08:47→11:33)
--- NOTE | 2019-05-14 09:01 | PN ---
Progress Note (short form) - Note Progress Note: Neurology CHIEF COMPLAINT:facial discomfort HISTORY OF PRESENT ILLNESS: Mr. Bangura is a 68 y/o [place] speaking man with hx DM, HTN , CKD, presented day of admission with two days of facial numbness and fingertip paresthesias. He reports that yesterday, he was feeling his normal self, when he began to note numbness around his lips. Head CT, left thalamic lacunar infarct with moderate volume loss. Pt LDL 73, triglycerides 353. Pt being treated for L facial numbness alongside of V2/V3 cranial nerve distribution increasing in the recent history. MRI ordered, not yet completed. Pt continue on home medication including statin 40mg and monitored on Tele. Contacted by ER on admission and possibly component of trigeminal neuralgia and therefore started him on akash 100 bid which has helped, will increase to 300mg twice daily. Still subjective paresthesias, MRI completed, small acute infarct on right side of splenium of corpus callosum, small acute infarct within the right paramedian aspect of midbrain. Discussed with patient and he was taking ASA 81 at home regularly therefore considered ASA failure. switched to aggrenox for increased protection. Since LDL 73, does not require statin 80 and can remain on statin 40. Receiving ceftriaxone, antibiotics for infectious management, mental status remains at baseline and intact. Active Medications Atorvastatin Calcium (Lipitor -) 40 mg PO HS [facility] Last Admin: 05/13/19 22:14 Dose: 40 mg Carvedilol (Coreg -) 25 mg PO BID [facility] Last Admin: 05/14/19 08:47 Dose: 25 mg Dipyridamole/Aspirin (Aggrenox -) 1 combo PO BID [facility] Last Admin: 05/13/19 22:13 Dose: 1 combo Furosemide (Lasix -) 40 mg PO DAILY [facility] Last Admin: 05/14/19 08:47 Dose: 40 mg Gabapentin (Neurontin -) 300 mg PO BID [facility] Last Admin: 05/13/19 22:14 Dose: 300 mg Ceftriaxone Sodium 1 gm/ (Dextrose) 50 mls @ 100 mls/hr IVPB DAILY [facility] Last Admin: 05/13/19 10:09 Dose: 100 mls/hr Levothyroxine Sodium (Synthroid -) 25 mcg PO AM [facility] Last Admin: 05/14/19 06:37 Dose: 25 mcg PHYSICAL EXAMINATION Vital Signs Period Temp Pulse Resp BP Sys/Grissom Pulse Ox Last 24 Hr 97.8 F-98.8 F 64-74 20-21 147-171/81-92 99 GENERAL: Awake, alert, and fully oriented, in no acute distress. HEAD: Normal with no signs of trauma. EYES: Pupils equal, round and reactive to light, extraocular movements intact, sclera anicteric, conjunctiva clear. No lid lag. EARS, NOSE, THROAT: Ears normal, nares patent, oropharynx clear without exudates. Moist mucous membranes. NECK: Normal range of motion, supple without lymphadenopathy, JVD, or masses. LUNGS: Breath sounds equal, clear to auscultation bilaterally. No wheezes, and no crackles. No accessory muscle use. HEART: Regular rate and rhythm, normal S1 and S2 without murmur, rub or gallop. ABDOMEN: Soft, nontender, not distended, normoactive bowel sounds, no guarding, no rebound, no masses. No hepatomegaly or splenomegaly. MUSCULOSKELETAL: Normal range of motion at all joints. No bony deformities or tenderness. No CVA tenderness. UPPER EXTREMITIES: 2+ pulses, warm, well-perfused. No cyanosis. No clubbing. No peripheral edema. LOWER EXTREMITIES: 2+ pulses, warm, well-perfused. No calf tenderness. No peripheral edema. NEUROLOGICAL: Cranial nerves II-XII intact. Normal speech. Normal gait. PSYCHIATRIC: Cooperative. Good eye contact. Appropriate mood and affect. SKIN: Warm, dry, normal turgor, no rashes or lesions noted, normal capillary refill. CBCD WBC 7.9 K/mm3 (4.0-10.0) 05/12/19 05:45 RBC 3.95 M/mm3 (4.00-5.60) L 05/12/19 05:45 Hgb 10.5 GM/dL (11.7-16.9) L 05/12/19 05:45 Hct 32.5 % (35.4-49) L 05/12/19 05:45 MCV 82.1 fl (80-96) 05/12/19 05:45 MCHC 32.4 g/dl (32.0-35.9) 05/12/19 05:45 RDW 15.1 % (11.9-15.9) 05/12/19 05:45 Plt Count 142 K/MM3 (134-434) 05/12/19 05:45 MPV 11.3 fl (7.5-11.1) H 05/12/19 05:45 CMP Sodium 140 mmol/L (136-145) 05/12/19 05:45 Potassium 3.9 mmol/L (3.5-5.1) 05/12/19 05:45 Chloride 108 mmol/L (98-107) H 05/12/19 05:45 Carbon Dioxide 26 mmol/L (21-32) 05/12/19 05:45 Anion Gap 5 MMOL/L (8-16) L 05/12/19 05:45 BUN 34.0 mg/dL (7-18) H 05/12/19 05:45 Creatinine 2.8 mg/dL (0.55-1.3) H 05/12/19 05:45 Random Glucose 179 mg/dL (74-106) H 05/12/19 05:45 Calcium 8.6 mg/dL (8.5-10.1) 05/12/19 05:45 Total Bilirubin 0.3 mg/dL (0.2-1) 05/11/19 13:05 AST 16 U/L (15-37) 05/11/19 13:05 ALT 26 U/L (13-61) 05/11/19 13:05 Alkaline Phosphatase 148 U/L (45-117) H 05/11/19 13:05 Total Protein 7.0 g/dl (6.4-8.2) 05/11/19 13:05 Albumin 3.3 g/dl (3.4-5.0) L 05/11/19 13:05 CARDIAC ENZYMES Creatine Kinase 195 U/L (26-308) 05/11/19 13:05 Troponin I 0.02 ng/ml (0.00-0.05) 05/11/19 13:05 ASSESSMENT/PLAN: Mr. Bangura is a 68 y/o [place] speaking man with hx DM, HTN , CKD, presented with two days of facial numbness and fingertip paresthesias. He reports that yesterday, he was feeling his normal self, when he began to note numbness around his lips. Head CT, left thalamic lacunar infarct with moderate volume loss. Pt LDL 73, triglycerides 353. Pt being treated for L facial numbness alongside of V2/V3 cranial nerve distribution increasing in the recent history. MRI ordered, not yet completed. Pt continue on home medication including statin 40mg and monitored on Tele. Contacted by ER on admission and possibly component of trigeminal neuralgia and therefore started him on akash 100 bid which has helped, will increase to 300mg twice daily. Still subjective paresthesias, Still subjective paresthesias, MRI completed, small acute infarct on right side of splenium of corpus callosum, small acute infarct within the right paramedian aspect of midbrain. Discussed with patient and he was taking ASA 81 at home regularly therefore considered ASA failure. Advised to switch to aggrenox for increased protection. Since LDL 73, does not require statin 80 and can remain on statin 40. Monitor BP, maintain normotensive range. Contiue Statin. Facial exercises. Monitor glucose, maintain euglycemic range. Receiving ceftriaxone, antibiotics for infectious management, mental status remains at baseline and intact.
[2019-05-14 09:39] VITALS: BP 161/98; PULSE 64; TEMP 98.2
--- NOTE | 2019-05-14 10:02 | PN ---
Progress Note (short form) - Note Progress Note: Hospitalist Medicine Pt c/o discomfort in LUE, however ROM is preserved on active and passive movement. With discomfort 2/2 valero attachment to LE. Received AM BP meds early , as systolic in 160's. Denies WU, fever, chills, SOB, chest pain or changes in urinary or bowel function. Vital Signs 05/14/19 09:00 Temperature 98.2 F Pulse Rate 64 Respiratory 20 Rate Blood Pressure 161/98 Physical Exam general: calm, resting comfortably. lying in bed HEENT: NCAT. PERRLA. moist MM neck: supple cardio: S1, S2 RRR. no r/m/g pulm: CTA b/l. no rhonchi, wheezes or crackles. no accessory m usage abdomen: obese. nontender, nondistended. no guarding or rigidity neuro: engineer remote control diesel 2-12 grossly intact. no asymmetry noted. 5/5 motor strength UE, LE. sensation intact. Laboratory Tests 05/13/19 05/14/19 05/14/19 06:00 05:40 06:25 POC Glucometer 226 Hemoglobin A1c % 8.0 H Lyme Screen IgG & IgM Pending
[2019-05-14] MEDS: ASPIRIN/DIPYRIDAMOLE 25 MG/200 MG CAPSULE PO SCH (10:37)
[2019-05-14] MEDS: GABAPENTIN 300 MG CAPSULE (FP) PO SCH (10:37)
[2019-05-14] MEDS: CEFTRIAXONE 1 GM in DEXTROSE 5%-WATER - 50 ML IVPB SCH (10:37)
[2019-05-14 11:58] LABS: BLOOD UREA NITROGEN 41.5 mg/dL (7-18); CALCIUM 8.7 mg/dL (8.5-10.1); CREATININE 2.5 mg/dL (0.55-1.3)
[2019-05-14] MEDS: INSULIN SLIDING SCALE (NOVOLOG) 1 VIAL SQ SCH ×2 (12:00→17:11)
--- NOTE | 2019-05-14 12:24 | PN ---
Progress Note, Physician History of Present Illness: stable improving - Current Medication List Current Medications: Active Medications Amlodipine Besylate (Norvasc -) 10 mg PO DAILY [facility] Atorvastatin Calcium (Lipitor -) 40 mg PO HS [facility] Last Admin: 05/13/19 22:14 Dose: 40 mg Carvedilol (Coreg -) 25 mg PO BID [facility] Last Admin: 05/14/19 11:33 Dose: Not Given Dipyridamole/Aspirin (Aggrenox -) 1 combo PO BID [facility] Last Admin: 05/14/19 10:37 Dose: 1 combo Furosemide (Lasix -) 40 mg PO DAILY [facility] Last Admin: 05/14/19 11:34 Dose: Not Given Gabapentin (Neurontin -) 300 mg PO BID [facility] Last Admin: 05/14/19 10:37 Dose: 300 mg Hydralazine HCl (Apresoline -) 100 mg PO TID [facility] Ceftriaxone Sodium 1 gm/ (Dextrose) 50 mls @ 100 mls/hr IVPB DAILY [facility] Last Admin: 05/14/19 10:37 Dose: 100 mls/hr Insulin Aspart (Novolog Vial Sliding Scale -) 1 vial SQ ACHS [facility]; Protocol Last Admin: 05/14/19 12:00 Dose: 4 units Levothyroxine Sodium (Synthroid -) 25 mcg PO AM [facility] Last Admin: 05/14/19 06:37 Dose: 25 mcg Metformin HCl (Glucophage -) 500 mg PO BID@0700,1630 [facility] Metformin HCl (Glucophage -) 500 mg PO BID@0700,1630 [facility] Stop: 05/15/19 16:29 Sodium Bicarbonate (Sodium Bicarbonate -) 650 mg PO BID [facility] - Objective Vital Signs: Vital Signs Temperature 98.2 F 05/14/19 09:00 Pulse Rate 64 05/14/19 09:00 Respiratory Rate 20 05/14/19 09:00 Blood Pressure 161/98 05/14/19 09:00 O2 Sat by Pulse Oximetry (%) 99 05/14/19 09:00 Constitutional: Yes: No Distress, Calm Cardiovascular: Yes: S1, S2 Respiratory: Yes: Regular, CTA Bilaterally Musculoskeletal: Yes: WNL Extremities: Yes: WNL Neurological: Yes: Alert, Oriented Psychiatric: Yes: Alert, Oriented Labs: CBC, BMP 05/12/19 05:45 05/14/19 05:40 Assessment/Plan 1. CKD 2. CVA 3. htn 4. DM 5. hypothyroids 6. left hydro 7.r/o lymes plan will continue ceftriaxone await for results rest as per the team and neuro
--- NOTE | 2019-05-14 13:27 | PN ---
Progress Note, Physician History of Present Illness: Pt seen and examined at bedside. He is awake and alert. He denies shortness of breath. - Current Medication List Current Medications: Active Medications Amlodipine Besylate (Norvasc -) 10 mg PO DAILY [facility] Atorvastatin Calcium (Lipitor -) 40 mg PO HS [facility] Last Admin: 05/13/19 22:14 Dose: 40 mg Carvedilol (Coreg -) 25 mg PO BID [facility] Last Admin: 05/14/19 11:33 Dose: Not Given Dipyridamole/Aspirin (Aggrenox -) 1 combo PO BID [facility] Last Admin: 05/14/19 10:37 Dose: 1 combo Furosemide (Lasix -) 40 mg PO DAILY [facility] Last Admin: 05/14/19 11:34 Dose: Not Given Gabapentin (Neurontin -) 300 mg PO BID [facility] Last Admin: 05/14/19 10:37 Dose: 300 mg Hydralazine HCl (Apresoline -) 100 mg PO TID [facility] Ceftriaxone Sodium 1 gm/ (Dextrose) 50 mls @ 100 mls/hr IVPB DAILY [facility] Last Admin: 05/14/19 10:37 Dose: 100 mls/hr Insulin Aspart (Novolog Vial Sliding Scale -) 1 vial SQ ACHS [facility]; Protocol Last Admin: 05/14/19 12:00 Dose: 4 units Levothyroxine Sodium (Synthroid -) 25 mcg PO AM [facility] Last Admin: 05/14/19 06:37 Dose: 25 mcg Metformin HCl (Glucophage -) 500 mg PO BID@0700,1630 [facility] Metformin HCl (Glucophage -) 500 mg PO BID@0700,1630 [facility] Stop: 05/15/19 16:29 Sodium Bicarbonate (Sodium Bicarbonate -) 650 mg PO BID [facility] - Objective Vital Signs: Vital Signs Temperature 98.2 F 05/14/19 09:00 Pulse Rate 64 05/14/19 09:00 Respiratory Rate 20 05/14/19 09:00 Blood Pressure 161/98 05/14/19 09:00 O2 Sat by Pulse Oximetry (%) 99 05/14/19 09:00 Constitutional: Yes: Calm Eyes: Yes: Conjunctiva Clear HENT: Yes: Atraumatic Neck: Yes: Supple Cardiovascular: Yes: S1, S2 Respiratory: Yes: CTA Bilaterally Gastrointestinal: Yes: Normal Bowel Sounds, Soft Genitourinary: Yes: WNL Musculoskeletal: Yes: WNL Edema: No Labs: CBC, BMP 05/12/19 05:45 05/14/19 05:40 Problem List - Problems (1) CKD (chronic kidney disease) Code(s): N18.9 - CHRONIC KIDNEY DISEASE, UNSPECIFIED (2) Left facial numbness Code(s): R20.0 - ANESTHESIA OF SKIN Assessment/Plan Current Medications Generic Name Dose Route Start Last Admin Trade Name Freq PRN Reason Stop Dose Admin Amlodipine Besylate 10 mg 05/15/19 10:00 Norvasc - PO DAILY [facility] Atorvastatin Calcium 40 mg 05/13/19 12:15 05/13/19 22:14 Lipitor - PO 40 mg HS [facility] Administration Carvedilol 25 mg 05/11/19 22:00 05/14/19 11:33 Coreg - PO Not Given BID [facility] Dipyridamole/Aspirin 1 combo 05/13/19 22:00 05/14/19 10:37 Aggrenox - PO 1 combo BID [facility] Administration Furosemide 40 mg 05/12/19 10:00 05/14/19 11:34 Lasix - PO Not Given DAILY [facility] Gabapentin 300 mg 05/12/19 12:37 05/14/19 10:37 Neurontin - PO 300 mg BID [facility] Administration Hydralazine HCl 100 mg 05/14/19 14:00 Apresoline - PO TID [facility] Ceftriaxone Sodium 1 gm/ 50 mls @ 100 mls/hr 05/13/19 10:00 05/14/19 10:37 Dextrose IVPB 100 mls/hr DAILY [facility] Administration Insulin Aspart 1 vial 05/14/19 11:00 05/14/19 12:00 Novolog Vial Sliding Scale - SQ 4 units ACHS [facility] Administration Protocol Levothyroxine Sodium 25 mcg 05/12/19 07:00 05/14/19 06:37 Synthroid - PO 25 mcg AM [facility] Administration Metformin HCl 500 mg 05/14/19 16:30 Glucophage - PO BID@0700,1630 [facility] Metformin HCl 500 mg 05/14/19 16:30 Glucophage - PO 05/15/19 16:29 BID@0700,1630 [facility] Sodium Bicarbonate 650 mg 05/14/19 22:00 Sodium Bicarbonate - PO BID [facility] Impression 1. CKD 2. CVA 3. htn 4. DM 5. hypothyroids 6. left hydro Plan - baseline voucher examiner is 2.7 - voucher examiner improved - d/c metformin - neuro follow up - will trend voucher examiner
[2019-05-14] MEDS ORDERED: hydrALAZINE HCL 50 MG TABLET (FP) PO SCH (14:00)
--- NOTE | 2019-05-14 16:01 | DS ---
Physical Exam: SUBJECTIVE: Patient seen and examined at bedside. Feeling well. Able to move UE , LE with ease, ambulating down hallway. OBJECTIVE: Vital Signs Period Temp Pulse Resp BP Sys/Grissom Pulse Ox Last 24 Hr 97.8 F-98.6 F 64-74 20-20 147-171/81-98 99-99 PHYSICAL EXAM GENERAL: The patient is awake, alert, and fully oriented, in no acute distress. HEAD: Normal with no signs of trauma. EYES: PERRL, extraocular movements intact, sclera anicteric, conjunctiva clear. ENT: Ears normal, nares patent, oropharynx clear without exudates, moist mucous membranes. NECK: Trachea midline LUNGS: Breath sounds equal, clear to auscultation bilaterally, no wheezes, no crackles, no accessory muscle use. HEART: Regular rate and rhythm, S1, S2 without murmur, rub or gallop. ABDOMEN: Soft, obese, nontender, nondistended EXTREMITIES: 2+ pulses, warm, well-perfused, no edema. NEUROLOGICAL: Cranial nerves II through XII grossly intact. Normal speech, gait observed; WNL PSYCH: Normal mood, normal affect. SKIN: Warm, dry, normal turgor LABS Laboratory Results - last 24 hr 05/13/19 05/13/19 05/14/19 17:10 22:13 05:40 Sodium 139 Potassium 4.0 Chloride 110 H Carbon Dioxide 24 Anion Gap 5 L BUN 41.5 H Creatinine 2.5 H Est GFR (CKD-EPI)AfAm 29.06 Est GFR (CKD-EPI)NonAf 25.07 POC Glucometer 240 263 Random Glucose 225 H Calcium 8.7 05/14/19 05/14/19 06:25 11:56 Sodium Potassium Chloride Carbon Dioxide Anion Gap BUN Creatinine Est GFR (CKD-EPI)AfAm Est GFR (CKD-EPI)NonAf POC Glucometer 226 255 Random Glucose Calcium Additional Laboratory Tests 05/11/19 05/11/19 05/11/19 13:05 13:05 13:05 WBC RBC Hgb 11.4 L Hct 35.1 L Sodium Hemoglobin A1c % Iron TIBC Iron Saturation Triglycerides 353 H Urine Protein 3+ H Urine Glucose (UA) 1+ H Urine Bacteria (Auto) 3513.0 05/12/19 05/12/19 05/13/19 05:45 05:45 06:00 WBC 7.9 RBC 3.95 L Hgb 10.5 L Hct 32.5 L Sodium BUN Creatinine Random Glucose 179 H Hemoglobin A1c % 8.0 H Iron 36 L TIBC 249 L Iron Saturation 14 L Triglycerides Urine Glucose (UA) Urine Bacteria (Auto) 05/14/19 05:40 WBC RBC Hct Sodium 139 Potassium 4.0 Chloride 110 H BUN 41.5 H Creatinine 2.5 H Random Glucose 225 H Hemoglobin A1c % Iron Triglycerides Urine Protein Urine Glucose (UA) Head CT 05/11: moderate volume loss, L thalamic lacunar infarct, possibly chronic. CXR 05/11: no acute pathology Renal sono 05/11: increased R renal cortical echogenicity suggesting medical renal dz. no right sided hydronephrosis. on past study had L hydronephrosis ( prior admission). a nephroureteral stent was visualized partially. Brain MRI 05/12 w/o contrast: small acute infarct within the R paramedian spect of midbrain. In comparison to 2013 MRI interval development of several small chronic frontoparietal subcortical white matter infarcts bilaterally Carotid study 05/13: partially visualized vertebral arteries appear patent. no high grade coronary artery stenosis. EKG: NSR, 1st degree AV block, qtc 423ms HOSPITAL COURSE: Date of Admission:05/11/19 Date of Discharge: 05/14/19 Admit diagnosis: R/o CVA vs. trigeminal neuralgia 68yo M with h/o of HTN, CKD stage II, Type 2 DM with neuropathy, CAD without stenting, and prior prostate Ca who presentsed with L-sided facial numbness noted as new for one day duration. In addition, son at bedside stated that the patient had increased slurring of speech on day of admission. At time of exam pt 's son says his slurring has improved, but was still present compared to his normal. Pt endorses his diabetic neuropathy being chronic and that his numbness in his hands have not increased. Both the pt and son report that they had been at his PCP's office on day prior to admission, and was found to have a glucose level of 50. Denies any new changes in medications. In the ED neurology was contacted who reported this may be likely Trigeminal neuralgia and to give Gabapentin. Patient was managed on the floor by team and neurology saw pt. Received aspirin full dose in ED, and was continued on aggrenox by neuro, as well as lipitor 40mg qd. Brain MRI revealed small acute infarct within the R paramedian spect of midbrain. In comparison to 2014 MRI interval development of several small chronic frontoparietal subcortical white matter infarcts bilaterally. On discharge, he is to continue these medications, and aspirin has been d/c. Carotid doppler without significant stenoses. Pt was also tx for bacteruria in UA with rocephin x 2 days. Will continue on keflex for three additional days. He is also encouraged to take his home novolog and levemir 36U twice a day and follow up with endocrinology and his PCP. On discharge, his creatinine is improved and at baseline. He has CKD. Minutes to complete discharge: 45 Discharge Summary Problems reviewed: Yes Reason For Visit: ACUTE KIDNEY INJURY,NUMBNESS OF FACE Current Active Problems CKD (chronic kidney disease) (Acute) Left facial numbness (Acute) Condition: Stable - Instructions Diet, Activity, Other Instructions: You were in the hospital because your face was numb and you had sensation changes in your arms. You were found to have few, small strokes (infarcts) in your brain. You were seen in the hospital by a neurologist. You had a scan done of your neck vessels (carotids) which was normal. You are being sent home. While you were here, you were also found to have a high diabetic number (A1c) which is 8. It is important that you take medication for this or you can have many bad side effects, which can affect your nerves and your eyes. Medications We are sending you home on the following medications: 1. Aggrenox : take 1 pill twice a day (morning and night). This is a blood thinner for your stroke. Please make sure to check if you feel lightheaded, or have any bleeding like stomach bleeding, vomit blood, or see blood in your stool. Please contact your doctor immediately if this happens. IMPORTANT! DO NOT TAKE YOUR ASPIRIN! THIS HAS BEEN DISCONTINUED INSTEAD YOU ARE ON AGGRENOX 2. Lipitor 40mg - take 1 pill every day. This is for cholesterol and for your stroke. 3. Keflex 500mg twice a day x 3 days - . This is for your urinary tract infection. 4. Neurontin 300mg twice a day as needed; take this when you have numbness or tingling in your legs Otherwise, continue your home medications. You may continue to take your home diabetes meds of levemir 36 units morning and night and novolog that was prescribed to you previously. Follow-up appointments -Please follow up with: -Your primary care physician - 3-5 days -An turning machine set up operator (diabetes doctor), Dr. Peacock in 1 week -The neurologist (brain doctor) who saw you in the hospital, Dr. Kirkpatrick - 1 week If you develop chest pain or shortness of breath, or notice heavy bleeding please go to the hospital or call your doctor immediately. Referrals: Juancarlos Kirkpatrick MD [Staff Physician] - 1 Week Shine Langley MD [Primary Care Provider] - 05/17/19 Gaston Lim MD [Staff Physician] - 1 Week Disposition: HOME - Home Medications Comprehensive Discharge Medication List: Ambulatory Orders Amlodipine Besylate [Norvasc -] 10 mg PO DAILY 05/11/19 Carvedilol [Coreg -] 25 mg PO BID 05/11/19 Hydralazine HCl 100 mg PO TID 05/11/19 Labetalol HCl [Normodyne -] 600 mg PO BID 05/11/19 Sodium Bicarbonate - 650 mg PO BID 05/11/19 Albuterol Sulfate Inhaler - [Ventolin HFA Inhaler -] 1 - 2 inh PO Q4H 05/14/19 Aspirin/Dipyridamole [Aggrenox -] 1 combo PO BID #60 capsule 05/14/19 Atorvastatin Ca [Lipitor] 40 mg PO HS #30 tablet 05/14/19 Besifloxacin HCl [Besivance] 5 ml OU QID 05/14/19 Bromfenac Sodium [Prolensa] 3 ml OD DAILY 05/14/19 Carvedilol [Coreg -] 25 mg PO BID tablet 05/14/19 Cephalexin [Keflex] 500 mg PO BID #6 capsule 05/14/19 Furosemide [Lasix -] 40 mg PO DAILY tablet 05/14/19 Gabapentin [Neurontin -] 300 mg PO BID #40 capsule 05/14/19 Insulin (Levemir) [Levemir Vial] 36 units SQ BID 05/14/19 Insulin Sliding Scale [Novolog Vial Sliding Scale -] 0 units SQ TIDAC 05/14/19 Prednisolone 1% Ophthalmic [Pred Forte 1% -] 1 drop OD QID 11/18/19 This patient is new to me today: Yes Date on this admission: 05/14/19 Emergency Visit: No Critical Care patient: No - Discharge Referral Referred to [facility] Med P.C.: No ATTENDING PHYSICIAN STATEMENT I saw and evaluated the patient. I reviewed the resident's note and discussed the case with the resident. I agree with the resident's findings and plan as documented. SUBJECTIVE: OBJECTIVE: ASSESSMENT AND PLAN:
[2019-05-14] MEDS ORDERED: metFORMIN HCL 500 MG TABLET (FP) PO SCH ×2 (16:30)
[2019-05-14] MEDS ORDERED: SODIUM BICARBONATE 650 MG TABLET PO SCH (22:00)
[2019-05-15] MEDS ORDERED: amLODIPine BESYLATE 10 MG TABLET (FP) PO SCH (10:00)
== END 2019-05-14 16:56 | disposition home or self-care (01) | DRG 65 ==
LOC: JER 11:50 → JERBED 14:01 → OBSVTOIN 14:31 → J4W 16:13
PROVIDERS: ADMIT Internal Medicine; ATTEND Internal Medicine
DX: I63.9 Cerebral infarction, unspecified (principal); N13.30 Unspecified hydronephrosis; E11.22 Type 2 diabetes mellitus with diabetic chronic kidney disease; I13.10 Hypertensive heart and chronic kidney disease without heart failure, with stage 1 through stage 4 chronic kidney disease, or unspecified chronic kidney disease; E03.9 Hypothyroidism, unspecified; N18.2 Chronic kidney disease, stage 2 (mild); E11.40 Type 2 diabetes mellitus with diabetic neuropathy, unspecified; R20.0 Anesthesia of skin; I25.10 Atherosclerotic heart disease of native coronary artery without angina pectoris; Z98.61 Coronary angioplasty status; K21.9 Gastro-esophageal reflux disease without esophagitis; R29.702 NIHSS score 2
CPT/HCPCS: 36415; 70450-TC; 70551-TC; 71045-TC-FY; 76775-TC; 80048; 80053; 81003; 82465; 82550; 82553; 82607; 82746; 82962; 83036; 83540; 83550; 83718; 83721; 83735; 84100; 84478; 84484; 85025; 85027; 86618; 86850; 86900; 86901; 93005; 93010; 93880-TC; 97116-GP; 97161-GP; 99285-25; G0378; J7030

== ENCOUNTER 2019-06-25 07:27 | Day surgery (SDC) | payer MEDICARE, OTHER ==
[2019-06-21 17:17] VITALS: BMI 30.9
[2019-06-25] MEDS ORDERED: PROPOFOL 20 ML ONE (09:15)
[2019-06-25] MEDS ORDERED: MIDAZOLAM HCL 2 MG/2 ML SINGLE DOSE VIAL ONE (09:15)
--- NOTE | 2019-06-25 10:37 | OP ---
Operative Note - Note: Operative Date: 06/25/19 Pre-Operative Diagnosis: chronic renal insufficiency/left ureteral stricture with hydronephrosis/CAP s/p RT with recurrent bladder neck contracture/urinary incontinence Operation: cystoscopy/bilateral retrograde pyelogram/laser ablation of bladder neck/left ureteroscopy with dilation of ureter/left ureteral stent exchange Findings: high grade bladder neck contracture distal ureteral stricture with grade 4/5 hydroureteronephrosis Post-Operative Diagnosis: Same as Pre-op Surgeon: Jacques Loredo Anesthesia: General Specimens Removed: left ureteral stent Drains & Tubes with Location: 12/18 left ureteral stent/20 scottish silastic catheter Operative Report Dictated: Yes
--- NOTE | 2019-06-25 11:28 | OP ---
DATE OF OPERATION: 06/25/2019 PREOPERATIVE DIAGNOSES: 1. Chronic renal insufficiency. 2. Left urethral stricture with hydronephrosis. 3. Prostate cancer status post radiation therapy with recurrent bladder neck contracture. 4. Urinary incontinence. SURGEON: Davie Epstein MD ANESTHESIA: General. PROCEDURES: Cystoscopy, bilateral retrograde pyelogram, laser ablation of bladder neck, left ureteroscopy with dilation of ureter, and left ureteral stent exchange. DESCRIPTION OF PROCEDURE: The patient was brought in the operating room, placed in a supine position on the operating room table. Anesthesia and preoperative antibiotics were administered. The patient was then placed in a dorsal lithotomy position and prepped and draped in the usual sterile manner. Cystoscopy was attempted; however, a high-grade bladder neck contracture was noted. Attempts at entering the bladder were unsuccessful. Holmium laser was utilized, and relaxing incisions at the bladder neck were performed at the 6 o'clock position allowing for entry into the bladder with moderate difficulty. Ablation of the bladder neck was then performed utilizing the Holmium laser in a 360-degree fashion. The patient has pre-existing urinary incontinence due to multiple procedures performed by another provider. At this point, the left ureteral stent was seen. Left ureteral stent was removed with the grasping forceps. Attempts at passing a wire through the stent were unsuccessful. The stent was completely removed, and cystoscopy was performed. The wire could not be negotiated past the distal aspect of the ureter. The ureteroscopy was then utilized, and the distal ureter was intubated. There was left lateral deviation of the ureter, and the ureteroscope was angulated and then fashioned. It allowed for passage of the wire proximally. The ureteroscope was then used for distal dilation of the strictured area. With this accomplished, a retrograde pyelogram showed a grade 4/5 to 5/5 hydroureteronephrosis. A 6-Maltese 24-cm stent was then placed over the wire utilizing the Seldinger technique. No complications were noted. The patient tolerated the procedure very well. DISPOSITION: To recovery room. DAVIE EPSTEIN M.D. [id number]
[2019-06-25] MEDS ORDERED: oxyCODONE HCL 5 MG TABLET PO PRN (12:05)
[2019-06-25] MEDS ORDERED: ONDANSETRON 4 MG/2 ML VIAL IVPUSH PRN (12:05)
[2019-06-25] MEDS ORDERED: LACTATED RINGERS SOLUTION 1,000 ML IV SCH (12:15)
[2019-06-25 12:49] VITALS: PULSE 74
[2019-06-25 13:11] VITALS: BP 155/80; TEMP 97.5
--- NOTE | 2019-06-28 11:21 | PATH ---
Surgical Pathology Report Patient Name: BRYSON LAWRENCE Med. Rec. #: [id number] /Age/Gender: 1950 (Age: 69) / M Account: [id number] Location: [facility] SURGICAL Taken: 06/25/2019 Received: 06/25/2019 Reported: 06/28/2019 Physicians: Jacques Loredo Specimen(s) Received REMOVED FROM LEFT URETERAL Clinical History Hydronephrosis, bladder neck contracture Final Diagnosis REMOVED STENT FROM LEFT URETERAL: PORTION OF STENT. GROSS EXAMINATION ONLY. Electronically Signed Honey Gonzalez M.D. Gross Description Received fresh labeled "removed stent from left ureteral," is a 36 cm in length green, coiled portion of tubing, consistent with a ureteral stent. No soft tissue is present. No sections are submitted, gross only. 06/25/2019 saudi06/25/2019
== END 2019-06-25 13:17 | disposition home or self-care (01) ==
LOC: JASU-SURG 07:27
PROVIDERS: ATTEND Urology
PROC: BT1FYZZ Fluoroscopy of Left Kidney, Ureter and Bladder using Other Contrast (ICD-10-PCS; 2019-06-25)
PROC: 0T7D8DZ Dilation of Urethra with Intraluminal Device, Via Natural or Artificial Opening Endoscopic (ICD-10-PCS; 2019-06-25)
PROC: 0T5C8ZZ Destruction of Bladder Neck, Via Natural or Artificial Opening Endoscopic (ICD-10-PCS; 2019-06-25)
PROC: 0T778DZ Dilation of Left Ureter with Intraluminal Device, Via Natural or Artificial Opening Endoscopic (ICD-10-PCS; 2019-06-25)
PROC: 0T5D8ZZ Destruction of Urethra, Via Natural or Artificial Opening Endoscopic (ICD-10-PCS; 2019-06-25)
PROC: 0TP98DZ Removal of Intraluminal Device from Ureter, Via Natural or Artificial Opening Endoscopic (ICD-10-PCS; principal; 2019-06-25 08:00)
DX: N32.0 Bladder-neck obstruction (principal); N35.819 Other urethral stricture, male, unspecified site; N39.498 Other specified urinary incontinence; C61 Malignant neoplasm of prostate; I12.9 Hypertensive chronic kidney disease with stage 1 through stage 4 chronic kidney disease, or unspecified chronic kidney disease; E11.22 Type 2 diabetes mellitus with diabetic chronic kidney disease; Z92.3 Personal history of irradiation; Z79.4 Long term (current) use of insulin
CPT/HCPCS: 76000-TC-FY; 82962; 94760

== ENCOUNTER 2020-01-03 11:08 | Inpatient (IN) | payer MEDICARE, OTHER ==
--- NOTE | 2020-01-03 11:15 | PDOC ---
Rapid Medical Evaluation Chief Complaint: Hematuria Time Seen by Provider: 01/03/20 11:11 Medical Evaluation: Allergies Allergy/AdvReac Type Severity Reaction Status Date / Time lisinopril Allergy Severe Swelling Verified 06/25/19 08:23 01/03/20 11:13 I performed a brief in-person evaluation of this patient. 69 y/o male with hematuria and difficulty urinating since over night. He also complains of Left lumbar back pain. He admits to DM, HTN, asthma, kidney problems. He denies any fevers or bodyaches. Pertinent physical exam findings: nontoxic, no respiratory distress. I have ordered the following: labs, saline lock Patient to proceed to ED for further evaluation. Discharge Disposition - Diagnosis Hematuria - Referrals - Patient Instructions - Post Discharge Activity
--- NOTE | 2020-01-03 11:51 | PDOC ---
History of Present Illness - General Chief Complaint: Hematuria Stated Complaint: HEMATURIA / BACKPAIN Time Seen by Provider: 01/03/20 11:11 - History of Present Illness Initial Comments: 01/03/20 11:53 69yo M with h/o of HTN, CKD stage II, Type 2 DM, CAD, prostate ca, CVA, nephrolithiasis, left ureteral stricture with hydronephrosis + high grade bladder neck contracture s/p laser ablation of bladder neck and left ureteral stent exchange on 06/25/19 (Dr. Allen) presents to the ED with 1 day of 4/10 L dull flank pain a/w hematuria for 7 hours. Reports urine is blood tinged and not grossly bloody. He has also noted decreased urine output since last night. Pt reports similar pain in the past in the setting of infection. Denies fevers, chills, suprapubic pain. Denies N/V. Denies CP, SOB, headache, focal weaknbess/numbness, LE edema. Past History - Medical History Allergies/Adverse Reactions: Allergies Allergy/AdvReac Type Severity Reaction Status Date / Time lisinopril Allergy Severe Swelling Verified 01/03/20 11:14 Home Medications: Ambulatory Orders Amlodipine Besylate [Norvasc -] 10 mg PO DAILY 05/11/19 Hydralazine HCl 100 mg PO TID 05/11/19 Labetalol HCl [Normodyne -] 300 mg PO BID 05/11/19 Albuterol Sulfate Inhaler - [Ventolin HFA Inhaler -] 1 - 2 inh PO Q4H 05/14/19 Bromfenac Sodium [Prolensa] 3 ml OD DAILY 05/14/19 Furosemide [Lasix -] 40 mg PO DAILY tablet 05/14/19 Insulin (Levemir) [Levemir Vial] 35 units SQ ONCE 05/14/19 Insulin Sliding Scale [Novolog Vial Sliding Scale -] 0 units SQ BID 05/14/19 Prednisolone 1% Ophthalmic [Pred Forte 1% -] 1 drop OD QID 05/14/19 Atorvastatin Calcium [Lipitor] 10 mg PO DAILY 01/04/20 Gabapentin 400 mg PO BID 01/04/20 Aspirin [Aspirin EC] 81 mg PO DAILY 01/05/20 Anemia: Yes (?) Asthma: Yes Cancer: Yes (prostate, CHEMO) Cardiac Disorders: Yes ([place]: 2012, CARDIAC STENTING) CVA: No COPD: No CHF: No Dementia: No Diabetes: Yes GI Disorders: Yes (GERD, diverticulitis) Disorders: Yes HTN: Yes Hypercholesterolemia: Yes Liver Disease: No Seizures: No Thyroid Disease: No - Surgical History Abdominal Surgery: No Appendectomy: No Cardiac Surgery: No Cholecystectomy: No Lung Surgery: No Neurologic Surgery: No Orthopedic Surgery: No - Immunization History Immunization Up to Date: Yes - Psycho-Social/Smoking History Smoking Status: No Smoking History: Never smoked Have you smoked in the past 12 months: No Number of Cigarettes Smoked Daily: 0 If you are a former smoker, when did you quit?: 1 YEAR AGO Information on smoking cessation initiated: No 'Breaking Loose' booklet given: 09/06/17 - Substance Abuse Hx (Audit-C & DAST Scrn) How often the patient has a drink containing alcohol: Never Score: In Men: 4 or > Positive; In Women: 3 or > Positive: 0 Screen Result (Pos requires Nsg. Audit-10AR): Negative In the last yr the pt used illegal drug/Rx for NonMed reason: No Score: Yes response is considered Positive: 0 Screen Result (Positive result requires Nsg. DAST-10): Negative Review of Systems - Review of Systems Comments:: 01/03/20 12:01 GENERAL/CONSTITUTIONAL: No fever or chills. No weakness. HEAD, EYES, EARS, NOSE AND THROAT: No change in vision. No ear pain or discharge. No sore throat. GASTROINTESTINAL: No nausea, vomiting, diarrhea or constipation. GENITOURINARY: +oliguria, +hematuria, +L flank pain CARDIOVASCULAR: No chest pain or shortness of breath. RESPIRATORY: No cough, wheezing, or hemoptysis. MUSCULOSKELETAL: No joint or muscle swelling or pain. No neck or back pain. SKIN: No rash NEUROLOGIC: No headache, vertigo, loss of consciousness, or change in stren gth/sensation. ENDOCRINE: No increased thirst. No abnormal weight change. HEMATOLOGIC/LYMPHATIC: No anemia, easy bleeding, or history of blood clots. ALLERGIC/IMMUNOLOGIC: No hives or skin allergy. *Physical Exam - Vital Signs Last Vital Signs Temp Pulse Resp BP Pulse Ox 99.8 F H 93 H 19 126/64 100 01/03/20 11:12 01/03/20 11:12 01/03/20 11:12 01/03/20 11:12 01/03/20 11:12 - Physical Exam 01/03/20 13:08 GENERAL: Awake, alert, and fully oriented, in no acute distress, mildly ben phoretic EYES: PERRLA, EOMI, sclera anicteric, conjunctiva clear ENT: Oropharynx clear without exudates. Moist mucosa NECK: Normal ROM, supple, no lymphadenopathy, JVD, or masses LUNGS: Breath sounds equal, clear to auscultation bilaterally. No wheezes, and no crackles HEART: Regular rate and rhythm, normal S1 and S2, no murmurs, rubs or gallops ABDOMEN: Soft, nontender, normoactive bowel sounds. No guarding, no rebound. No masses. +mild L CVAT EXTREMITIES: Normal range of motion, no edema. No clubbing or cyanosis. No cords, erythema, or tenderness NEUROLOGICAL: Normal speech, cranial nerves intact, equal strength and sensation b/l SKIN: Warm, Dry, normal turgor, no rashes or lesions noted. ED Treatment Course - LABORATORY CBC & Chemistry Diagram: 01/06/20 08:10 01/06/20 08:10 Medical Decision Making - Medical Decision Making 01/03/20 13:14 69yo M with h/o of HTN, CKD stage II, Type 2 DM, CAD, prostate ca, CVA, nephrolithiasis, left ureteral stricture with hydronephrosis + high grade bladder neck contracture s/p laser ablation of bladder neck and left ureteral stent exchange on 06/25/19 (Dr. Toni Chamberlain) presents to the ED with L flank pain, hematuria, and oliguria. Rectal temp 99.9, HR mildly tachycardic 90s DDx includes pyelonephritis +/- stone vs stent migration/obstruction +hx ESBL, pt covered with meropenem Plan for CTAP non con to evaluate stent, look for stone. Block Greaser doubled compared to prior Case discussed with Dr. Brunson who is evaluating pt Anticpate admission 01/03/20 18:54 CTAP w hydro, stent with normal placement Case discussed with Dr Toni Chamberlain, reports pt was due for stent exchange but procedure was cancelled 2/2 covid. He will evaluate pt Pt admitted to hospitalist for further mgmt Discharge - Discharge Information Problems reviewed: Yes Clinical Impression/Diagnosis: Hematuria - Admission Yes - Follow up/Referral - Patient Discharge Instructions - Post Discharge Activity
[2020-01-03 11:59] LABS: BASO % 0.5 % (0-2.0); EOS % 0.8 % (0-4.5); HEMOGLOBIN 9.6 GM/dL (11.7-16.9); LYMPH % 14.9 % (8-40); MCH 26.5 pg (25.7-33.7); MEAN CELL VOLUME 82.8 fl (80-96); MONO % 8.8 % (3.8-10.2); PLATELET COUNT 128 K/MM3 (134-434); RBC 3.62 M/mm3 (4.00-5.60); RDW 14.9 % (11.9-15.9); WHITE BLOOD COUNT 8.3 K/mm3 (4.0-10.0)
[2020-01-03 12:30] LABS: EPI CELLS 19 /uL (0-25.1); HYALINE CASTS 248 /uL (0-3.1); PH,URINE 7.5 (5.0-8.0); URINE APPEARANCE TURBID; URINE BACTERIA 3080 /uL (0-1359); URINE BILIRUBIN NEGATIVE (NEGATIVE); URINE COLOR RED; URINE GLUCOSE (UA) NEGATIVE (NEGATIVE); URINE KETONE NEGATIVE (NEGATIVE); URINE LEUK ESTERASE 3+ (NEGATIVE); URINE NITRITE POSITIVE (NEGATIVE); URINE PROTEIN 4+ (NEGATIVE); URINE UROBILINOGEN 0.2 mg/dL (0.2-1.0); URINE WBC 23676 /uL (0-25.8)
[2020-01-03 12:37] LABS: ALBUMIN 3.4 g/dl (3.4-5.0); BILIRUBIN,TOTAL 0.5 mg/dL (0.2-1); BLOOD UREA NITROGEN 50.6 mg/dL (7-18); CALCIUM 8.5 mg/dL (8.5-10.1); CREATININE 4.2 mg/dL (0.55-1.3); TOT PROT 6.9 g/dl (6.4-8.2)
[2020-01-03] MEDS ORDERED: ACETAMINOPHEN 1000 MG/100 ML VIAL (NON FORMULARY) IVPB ONE (12:43)
[2020-01-03] MEDS ORDERED: MEROPENEM 1 GM in DEXTROSE 5%-WATER 100 ML IVPB ONE (12:43)
[2020-01-03] MEDS ORDERED: SODIUM CHLORIDE 0.9% 1000 ML INFUS.BAG IV ONE (12:45)
[2020-01-03] MEDS ORDERED: ACETAMINOPHEN INJECTION 100 ML IVPB ONE (12:55)
[2020-01-03 13:03] LABS: URINE RBC 8612.1 /uL (0-23.9); YEAST NONE SEEN (NEGATIVE)
--- NOTE | 2020-01-03 13:08 | CONSULT ---
Consult Consult Specialty:: Nephrology Reason for Consultation:: MARY - History of Present Illness Chief Complaint: flank pain and hematuria History of Present Illness: Pt is a 69 year old male with pmhx of htn, ckd, DM, CAD, prostate cancer, cva, nephrolithiasis who presents to the ER with left flank pain and dark urine. I was called to evaluate him for elevated gambling supervisor. He does have ckd and his baseline gambling supervisor is about 2.5 to 2.7. He denies edema or shortness of breath. He denies nsaid use. He did have hematuria and felt dysuria. He denies chills or fevers. He denies nausea or vomiting. 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 Cardio/Vascular: Yes: CAD (s/p stenting), HTN, Hyperlipdemia, [place] Gastrointestinal: Yes: Diverticulosis, GERD Renal/: Yes: Renal Inusuff, BPH, Cancer (Prostate), Hematuria, Renal Calculi, UTI (ESBL), Other Infectious Disease: Yes: Other (ESBL UTI) Musculoskeletal: Yes: Other (Osteoarthritis) Endocrine: Yes: Diabetes Mellitus - Past Surgical History Past Surgical History: Yes: Prostatectomy, Stent (PCI, ureteral stenting) - Alcohol/Substance Use Hx Alcohol Use: No History of Substance Use: reports: None - Smoking History Smoking history: Never smoked Have you smoked in the past 12 months: No Aproximately how many cigarettes per day: 0 If you are a former smoker, when did you quit?: 1 YEAR AGO - Social History ADL: Independent History of Recent Travel: No Home Medications - Allergies Allergies/Adverse Reactions: Allergies Allergy/AdvReac Type Severity Reaction Status Date / Time lisinopril Allergy Severe Swelling Verified 01/03/20 11:14 - Home Medications Home Medications: Ambulatory Orders Amlodipine Besylate [Norvasc -] 10 mg PO DAILY 05/11/19 Carvedilol [Coreg -] 25 mg PO BID 05/11/19 Hydralazine HCl 100 mg PO TID 05/11/19 Labetalol HCl [Normodyne -] 600 mg PO BID 05/11/19 Sodium Bicarbonate - 650 mg PO BID 05/11/19 Albuterol Sulfate Inhaler - [Ventolin HFA Inhaler -] 1 - 2 inh PO Q4H 05/14/19 Aspirin/Dipyridamole [Aggrenox -] 1 combo PO BID #60 capsule 05/14/19 Atorvastatin Ca [Lipitor] 40 mg PO HS #30 tablet 05/14/19 Besifloxacin HCl [Besivance] 5 ml OU QID 05/14/19 Bromfenac Sodium [Prolensa] 3 ml OD DAILY 05/14/19 Carvedilol [Coreg -] 25 mg PO BID tablet 05/14/19 Cephalexin [Keflex] 500 mg PO BID #6 capsule 05/14/19 Furosemide [Lasix -] 40 mg PO DAILY tablet 05/14/19 Gabapentin [Neurontin -] 300 mg PO BID #40 capsule 05/14/19 Insulin (Levemir) [Levemir Vial] 36 units SQ BID 05/14/19 Insulin Sliding Scale [Novolog Vial Sliding Scale -] 0 units SQ TIDAC 05/14/19 Prednisolone 1% Ophthalmic [Pred Forte 1% -] 1 drop OD QID 05/14/19 Family Medical History Family History: Denies Review of Systems - Review of Systems Constitutional: reports: Malaise Eyes: reports: No Symptoms HENT: reports: No Symptoms Neck: reports: No Symptoms Cardiovascular: reports: No Symptoms Respiratory: reports: No Symptoms Gastrointestinal: reports: No Symptoms Genitourinary: reports: Flank Pain, Hematuria Integumentary: reports: No Symptoms Neurological: reports: No Symptoms Endocrine: reports: No Symptoms Hematology/Lymphatic: reports: No Symptoms Psychiatric: reports: No Symptoms Physical Exam Vital Signs: Vital Signs Temperature 99.8 F H 01/03/20 11:12 Pulse Rate 93 H 01/03/20 11:12 Respiratory Rate 19 01/03/20 11:12 Blood Pressure 126/64 01/03/20 11:12 O2 Sat by Pulse Oximetry (%) 100 01/03/20 11:12 Constitutional: Yes: Calm HENT: Yes: Atraumatic Cardiovascular: Yes: S1, S2 Respiratory: Yes: CTA Bilaterally Gastrointestinal: Yes: Soft Renal/: Yes: CVA Tenderness - Left Musculoskeletal: Yes: WNL Edema: No Neurological: Yes: Oriented Psychiatric: Yes: Oriented Labs: CBC, BMP 01/03/20 11:35 01/03/20 11:35 Imaging - Results Cat Scan: Report Reviewed Problem List - Problems (1) Hematuria Code(s): R31.9 - HEMATURIA, UNSPECIFIED (2) CKD (chronic kidney disease) Code(s): N18.9 - CHRONIC KIDNEY DISEASE, UNSPECIFIED Assessment/Plan Current Medications Generic Name Dose Route Start Last Admin Trade Name Sj PRN Reason Stop Dose Admin Meropenem 1 gm/ Dextrose 100 mls @ 200 mls/hr 01/03/20 12:43 IVPB 01/03/20 13:12 ONCE ONE Laboratory Tests 01/03/20 01/03/20 01/03/20 11:35 11:35 11:35 WBC 8.3 Hgb 9.6 L Plt Count 128 L BUN 50.6 H Creatinine 4.2 H Urine Protein 4+ H Urine Blood 3+ H Urine Nitrite Positive H Impression 1. CKD 2. hx CVA 3. htn 4. DM 5. hypothyroidism 6. left hydro with stent on ct scan 7. UTI 8. thrombocytopenia 9. anemia 10. MARY Plan - urology eval - send cultures - cont abx - will start fluids - repeat labs in am - avoid nsaids - monitor vitals and monitor for fever - baseline gambling supervisor is 2.7
[2020-01-03] MEDS ORDERED: MEROPENEM 1 GM VIAL (RESTRICTED TO ID) IVPB ONE (14:28)
[2020-01-03] MEDS ORDERED: SODIUM CHLORIDE 250 ML IV STA (17:41)
[2020-01-03] MEDS: SODIUM CHLORIDE 1,000 ML IV SCH (18:11)
--- NOTE | 2020-01-03 20:54 | HP ---
<Dario Vu - Last Filed: 01/04/20 05:00> CHIEF COMPLAINT: Hematuria PCP: None HISTORY OF PRESENT ILLNESS: 69 y.o. Macanese speaking male PMHx of HTN, CKD stage 2, Diabetes, CAD, prostate cancer, CVA, nepthrolithiasis, L ureteral stricture with hydronephrosis and high grade bladder neck contracture (s/p laser ablation and L ureteral stent exchange 06/25/17; Dr. Toni Chamberlain). Patient stated last night he began having acute onset left sided flank pain with blood tinged urine (no gross blood). Gradually the pain subsided but he was still having hematuria so he decided to come to the ED. Patient reports having similar symptoms in May. Currently he stated he is feeling well denies suprapubic/flank pain, headache, chills N/V/D. Upon inspection of the patients valero bag he has ~200mL of red/brown tinged urine. Baseline Cr 2.7. 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 ER course was notable for: (1) Meropenem (2) EKG (3) CT Abdomen/Pelvis Recent Travel: None PAST MEDICAL HISTORY: HTN, CKD stage 2, Diabetes, CAD, prostate cancer, CVA, nepthrolithiasis, L ureteral stricture with hydronephrosis and high grade bladder neck contracture PAST SURGICAL HISTORY: Laser ablation and L ureteral stent exchange Social History: Smoking: No Alcohol: No Drugs: No Allergies lisinopril Allergy (Severe, Verified 01/03/20 11:14) Swelling HOME MEDICATIONS: Home Medications Medication Instructions Recorded Amlodipine Besylate [Norvasc -] 10 mg PO DAILY 05/11/19 Carvedilol [Coreg -] 25 mg PO BID 05/11/19 Hydralazine HCl 100 mg PO TID 05/11/19 Labetalol HCl [Normodyne -] 600 mg PO BID 05/11/19 Sodium Bicarbonate - 650 mg PO BID 05/11/19 Albuterol Sulfate Inhaler - 1 - 2 inh PO Q4H 05/14/19 [Ventolin HFA Inhaler -] Aspirin/Dipyridamole [Aggrenox -] 1 combo PO BID #60 capsule 05/14/19 Atorvastatin Ca [Lipitor] 40 mg PO HS #30 tablet 05/14/19 Besifloxacin HCl [Besivance] 5 ml OU QID 05/14/19 Bromfenac Sodium [Prolensa] 3 ml OD DAILY 05/14/19 Carvedilol [Coreg -] 25 mg PO BID tablet 05/14/19 Cephalexin [Keflex] 500 mg PO BID #6 capsule 05/14/19 Furosemide [Lasix -] 40 mg PO DAILY tablet 05/14/19 Gabapentin [Neurontin -] 300 mg PO BID #40 capsule 05/14/19 Insulin (Levemir) [Levemir Vial] 36 units SQ BID 05/14/19 Insulin Sliding Scale [Novolog 0 units SQ TIDAC 05/14/19 Vial Sliding Scale -] Prednisolone 1% Ophthalmic [Pred 1 drop OD QID 05/14/19 Forte 1% -] REVIEW OF SYSTEMS CONSTITUTIONAL: Absent: fever, chills, diaphoresis, generalized weakness, malaise, loss of appetite, weight change HEENT: Absent: rhinorrhea, nasal congestion, throat pain, throat swelling, difficulty swallowing, mouth swelling, ear pain, eye pain, visual changes CARDIOVASCULAR: Absent: chest pain, syncope, palpitations, irregular heart rate, lightheadedness, peripheral edema RESPIRATORY: Absent: cough, shortness of breath, dyspnea with exertion, orthopnea, wheezing, stridor, hemoptysis GASTROINTESTINAL: Absent: abdominal pain, abdominal distension, nausea, vomiting, diarrhea, constipation, melena, hematochezia GENITOURINARY: Hematuria Absent: dysuria, frequency, urgency, hesitancy, flank pain, genital pain MUSCULOSKELETAL: Absent: myalgia, arthralgia, joint swelling, back pain, neck pain SKIN: Absent: rash, itching, pallor HEMATOLOGIC/IMMUNOLOGIC: Absent: easy bleeding, easy bruising, lymphadenopathy, frequent infections ENDOCRINE: Absent: unexplained weight gain, unexplained weight loss, heat intolerance, cold intolerance NEUROLOGIC: Absent: headache, focal weakness or paresthesias, dizziness, unsteady gait, seizure, mental status changes, bladder or bowel incontinence PSYCHIATRIC: Absent: anxiety, depression, suicidal or homicidal ideation, hallucinations. PHYSICAL EXAMINATION Vital Signs - 24 hr 01/03/20 01/03/20 11:12 16:25 Temperature 99.8 F H Pulse Rate 93 H Pulse Rate [ 70 Right Radial] Respiratory 19 20 Rate Blood Pressure 126/64 Blood Pressure 136/67 [Left Arm] O2 Sat by Pulse 100 98 Oximetry (%) GENERAL: Awake, alert, and fully oriented, in no acute distress. HEAD: Normal with no signs of trauma. EYES: Pupils equal, round and reactive to light, extraocular movements intact, sclera anicteric, conjunctiva clear. EARS, NOSE, THROAT: Oropharynx clear without exudates. Moist mucous membranes. NECK: No JVD, or masses. LUNGS: Breath sounds equal, clear to auscultation bilaterally. No wheezes, and no crackles. No accessory muscle use. HEART: Regular rate and rhythm, normal S1 and S2 without murmur, rub or gallop. ABDOMEN: Soft, nontender, mildly distended, normoactive bowel sounds, no guarding, no rebound, no masses. MUSCULOSKELETAL: No CVA tenderness. UPPER EXTREMITIES: 2+ pulses, warm, well-perfused. No peripheral edema. LOWER EXTREMITIES: 2+ pulses, warm, well-perfused. No calf tenderness. No peripheral edema. NEUROLOGICAL: Cranial nerves II-XII intact. Normal speech. PSYCHIATRIC: Cooperative. Good eye contact. Appropriate mood and affect. SKIN: Warm, dry, normal turgor, no rashes or lesions noted. Laboratory Results - last 24 hr 01/03/20 01/03/20 01/03/20 11:35 11:35 11:35 WBC 8.3 RBC 3.62 L Hgb 9.6 L Hct 30.0 L MCV 82.8 MCH 26.5 MCHC 32.0 RDW 14.9 Plt Count 128 L MPV 12.0 H Absolute Neuts (auto) 6.2 Neutrophils % 75.0 Lymphocytes % 14.9 D Monocytes % 8.8 Eosinophils % 0.8 Basophils % 0.5 Nucleated RBC % 0 Sodium 137 Potassium 4.0 Chloride 105 Carbon Dioxide 23 Anion Gap 9 BUN 50.6 H Creatinine 4.2 H Est GFR (CKD-EPI)AfAm 15.41 Est GFR (CKD-EPI)NonAf 13.30 Random Glucose 304 H Calcium 8.5 Total Bilirubin 0.5 AST 9 L ALT 17 Alkaline Phosphatase 118 H Total Protein 6.9 Albumin 3.4 Urine Color Red Urine Appearance Turbid Urine pH 7.5 Ur Specific [place] 1.020 Urine Protein 4+ H Urine Glucose (UA) Negative Urine Ketones Negative Urine Blood 3+ H Urine Nitrite Positive H Urine Bilirubin Negative Urine Urobilinogen 0.2 Ur Leukocyte Esterase 3+ H Urine WBC (Auto) 04056 Urine RBC (Auto) 8612.1 Urine Casts (Auto) 248 U Pathogenic Cast Auto None seen U Epithel Cells (Auto) 19 Urine Bacteria (Auto) 3080 Urine Yeast (Auto) None seen Imaging: CT: Shows L renal hydronephrosis and L uretal dilation, bilateral adrenal hyperplasia, diverticulosis coli without evidence of acute diverticuli ASSESSMENT/PLAN: 69 y.o. Macanese speaking male PMHx of HTN, CKD stage 2, Diabetes, CAD, prostate cancer, CVA, nepthrolithiasis, L ureteral stricture with hydronephrosis prsents to the ED with acute onset left sided flank pain and blood tinged urine. # UTI vs Pyelonephritis - Patient has had L sided flank pain and hematuria, UA is positive for nitrites and 3+ leuk esterase - Previous cultures show ESBL E. Coli - Continue meropenem 1g Q8 - f/u with cultures - Q4 vitals monitor for fever - UA order - Blood cultures ordered - NS at 100mL/hr - Avoid NSAIDS & other nephrotoxic drugs - Tylenol 650 Q4 PRN - Cr 4.2, baseline 2.7 f/u with labs - Nephrology consult placed (Dr. Brunson) - Urology consult (Facundo) # Diabetes - Sliding scale - Home dose of levemir - Diabetic diet # Hypertension - Coreg 25mg PO BID - Amlodipine 10mg PO daily - Hydralizine 100mg PO TID # Anemia - Likely due to stage 2 CKD - Monitor labs for changes - Current Hgb 9.6, Hct 30 # Thrombocytopenia - Platelets 128 - Likely due to stage 2 CKD - BUN 50.6 - Similar to baseline over the past few years, will continue to monitor for acute drops # Bilateral Adrenal hyperpiesia - Incidental finding on CT scan - Would recommend outpatient f/u for management # Covid - Covid PCR Ordered - PCR ordered due to geographic location of pandemic - Placed in isolation precautions # FEN - NS at 100mL/hr - Diabetic diet # DVT Prophylaxis - Mechanical SCD'S bilateral - Holding medical AC due to bleeding risk # Dispo - Patient admitted to med surg - F/u with cultures and labs ATTENDING PHYSICIAN STATEMENT I saw and evaluated the patient. I reviewed the resident's note and discussed the case with the resident. I agree with the resident's findings and plan as documented. SUBJECTIVE: OBJECTIVE: ASSESSMENT AND PLAN: <Kim Medellin - Last Filed: 01/04/20 05:36> CHIEF COMPLAINT: PCP: HISTORY OF PRESENT ILLNESS: ER course was notable for: (1) (2) (3) Recent Travel: PAST MEDICAL HISTORY: PAST SURGICAL HISTORY: Social History: Smoking: Alcohol: Drugs: Allergies lisinopril Allergy (Severe, Verified 01/03/20 11:14) Swelling HOME MEDICATIONS: Home Medications Medication Instructions Recorded Amlodipine Besylate [Norvasc -] 10 mg PO DAILY 05/11/19 Hydralazine HCl 100 mg PO TID 05/11/19 Labetalol HCl [Normodyne -] 300 mg PO BID 05/11/19 Albuterol Sulfate Inhaler - 1 - 2 inh PO Q4H 05/14/19 [Ventolin HFA Inhaler -] Bromfenac Sodium [Prolensa] 3 ml OD DAILY 05/14/19 Furosemide [Lasix -] 40 mg PO DAILY tablet 05/14/19 Gabapentin [Neurontin -] 300 mg PO BID #40 capsule 05/14/19 Insulin (Levemir) [Levemir Vial] 0 units SQ BID 05/14/19 Insulin Sliding Scale [Novolog 0 units SQ BID 05/14/19 Vial Sliding Scale -] Prednisolone 1% Ophthalmic [Pred 1 drop OD QID 05/14/19 Forte 1% -] REVIEW OF SYSTEMS CONSTITUTIONAL: Absent: fever, chills, diaphoresis, generalized weakness, malaise, loss of appetite, weight change HEENT: Absent: rhinorrhea, nasal congestion, throat pain, throat swelling, difficulty swallowing, mouth swelling, ear pain, eye pain, visual changes CARDIOVASCULAR: Absent: chest pain, syncope, palpitations, irregular heart rate, lightheadedness, peripheral edema RESPIRATORY: Absent: cough, shortness of breath, dyspnea with exertion, orthopnea, wheezing, stridor, hemoptysis GASTROINTESTINAL: Absent: abdominal pain, abdominal distension, nausea, vomiting, diarrhea, constipation, melena, hematochezia GENITOURINARY: Absent: dysuria, frequency, urgency, hesitancy, hematuria, flank pain, genital pain MUSCULOSKELETAL: Absent: myalgia, arthralgia, joint swelling, back pain, neck pain SKIN: Absent: rash, itching, pallor HEMATOLOGIC/IMMUNOLOGIC: Absent: easy bleeding, easy bruising, lymphadenopathy, frequent infections ENDOCRINE: Absent: unexplained weight gain, unexplained weight loss, heat intolerance, cold intolerance NEUROLOGIC: Absent: headache, focal weakness or paresthesias, dizziness, unsteady gait, seizure, mental status changes, bladder or bowel incontinence PSYCHIATRIC: Absent: anxiety, depression, suicidal or homicidal ideation, hallucinations. PHYSICAL EXAMINATION Vital Signs - 24 hr 01/03/20 01/03/20 01/03/20 11:12 16:25 21:43 Temperature 99.8 F H 99.6 F Pulse Rate 93 H Pulse Rate [ 70 87 Right Radial] Respiratory 19 20 20 Rate Blood Pressure 126/64 Blood Pressure 136/67 156/77 [Left Arm] O2 Sat by Pulse 100 98 98 Oximetry (%) 01/03/20 01/04/20 23:30 02:00 Temperature 99.0 F 99.7 F H Pulse Rate 88 85 Pulse Rate [ Right Radial] Respiratory 17 17 Rate Blood Pressure 164/74 132/64 Blood Pressure [Left Arm] O2 Sat by Pulse 95 Oximetry (%) GENERAL: Awake, alert, and fully oriented, in no acute distress. HEAD: Normal with no signs of trauma. EYES: Pupils equal, round and reactive to light, extraocular movements intact, sclera anicteric, conjunctiva clear. No lid lag. EARS, NOSE, THROAT: Ears normal, nares patent, oropharynx clear without exudates. Moist mucous membranes. NECK: Normal range of motion, supple without lymphadenopathy, JVD, or masses. LUNGS: Breath sounds equal, clear to auscultation bilaterally. No wheezes, and no crackles. No accessory muscle use. HEART: Regular rate and rhythm, normal S1 and S2 without murmur, rub or gallop. ABDOMEN: Soft, nontender, not distended, normoactive bowel sounds, no guarding, no rebound, no masses. No hepatomegaly or splenomegaly. MUSCULOSKELETAL: Normal range of motion at all joints. No bony deformities or tenderness. No CVA tenderness. UPPER EXTREMITIES: 2+ pulses, warm, well-perfused. No cyanosis. No clubbing. No peripheral edema. LOWER EXTREMITIES: 2+ pulses, warm, well-perfused. No calf tenderness. No periph eral edema. NEUROLOGICAL: Cranial nerves II-XII intact. Normal speech. Normal gait. PSYCHIATRIC: Cooperative. Good eye contact. Appropriate mood and affect. SKIN: Warm, dry, normal turgor, no rashes or lesions noted, normal capillary refill. Laboratory Results - last 24 hr 01/03/20 01/03/20 01/03/20 11:35 11:35 11:35 WBC 8.3 RBC 3.62 L Hgb 9.6 L Hct 30.0 L MCV 82.8 MCH 26.5 MCHC 32.0 RDW 14.9 Plt Count 128 L MPV 12.0 H Absolute Neuts (auto) 6.2 Neutrophils % 75.0 Lymphocytes % 14.9 D Monocytes % 8.8 Eosinophils % 0.8 Basophils % 0.5 Nucleated RBC % 0 Sodium 137 Potassium 4.0 Chloride 105 Carbon Dioxide 23 Anion Gap 9 BUN 50.6 H Creatinine 4.2 H Est GFR (CKD-EPI)AfAm 15.41 Est GFR (CKD-EPI)NonAf 13.30 POC Glucometer Random Glucose 304 H Calcium 8.5 Total Bilirubin 0.5 AST 9 L ALT 17 Alkaline Phosphatase 118 H Total Protein 6.9 Albumin 3.4 Urine Color Red Urine Appearance Turbid Urine pH 7.5 Ur Specific [place] 1.020 Urine Protein 4+ H Urine Glucose (UA) Negative Urine Ketones Negative Urine Blood 3+ H Urine Nitrite Positive H Urine Bilirubin Negative Urine Urobilinogen 0.2 Ur Leukocyte Esterase 3+ H Urine WBC (Auto) 33678 Urine RBC (Auto) 8612.1 Urine Casts (Auto) 248 U Pathogenic Cast Auto None seen U Epithel Cells (Auto) 19 Urine Bacteria (Auto) 3080 Urine Yeast (Auto) None seen 01/03/20 01/03/20 21:26 22:23 WBC RBC Hgb Hct MCV MCH MCHC RDW Plt Count MPV Absolute Neuts (auto) Neutrophils % Lymphocytes % Monocytes % Eosinophils % Basophils % Nucleated RBC % Sodium Potassium Chloride Carbon Dioxide Anion Gap BUN Creatinine Est GFR (CKD-EPI)AfAm Est GFR (CKD-EPI)NonAf POC Glucometer 312 303 Random Glucose Calcium Total Bilirubin AST ALT Alkaline Phosphatase Total Protein Albumin Urine Color Urine Appearance Urine pH Ur Specific [place] Urine Protein Urine Glucose (UA) Urine Ketones Urine Blood Urine Nitrite Urine Bilirubin Urine Urobilinogen Ur Leukocyte Esterase Urine WBC (Auto) Urine RBC (Auto) Urine Casts (Auto) U Pathogenic Cast Auto U Epithel Cells (Auto) Urine Bacteria (Auto) Urine Yeast (Auto) ASSESSMENT/PLAN: Visit type - Emergency Visit Emergency Visit: Yes ED Registration Date: 01/03/20 Care time: The patient presented to the Emergency Department on the above date and was hospitalized for further evaluation of their emergent condition. - New Patient This patient is new to me today: Yes Date on this admission: 01/04/20 - Critical Care Critical Care patient: No 69 y.o. Macanese speaking male PMHx of HTN, CKD stage 2, Diabetes, CAD, prostate cancer, CVA, nepthrolithiasis, hydronephrosis s/p left ureteral stent placement # UTI vs Pyelonephritis - Continue meropenem antibiotic # MARY on CKD - appreciate renal eval - continue with IV fluids - repeat Cr in AM
[2020-01-03] MEDS ORDERED: ACETAMINOPHEN 325 MG TABLET (FP) PO PRN (20:55)
[2020-01-03] MEDS ORDERED: MEROPENEM 1 GM in SODIUM CHLORIDE 100 ML IVPB ONE (22:00)
[2020-01-03] MEDS ORDERED: CARVEDILOL 12.5 MG TABLET (FP) ONE (22:28)
[2020-01-03] MEDS ORDERED: hydrALAZINE HCL 25 MG TABLET (FP) ONE (22:29)
[2020-01-03] MEDS ORDERED: ATORVASTATIN CA 40 MG TABLET (FP) ONE (22:29)
[2020-01-03] MEDS ORDERED: GABAPENTIN 100 MG CAPSULE ONE (22:29)
[2020-01-03] MEDS ORDERED: INSULIN (LEVEMIR) 100 UNITS/ML UNITS SQ ONE (22:34)
[2020-01-03] MEDS: ATORVASTATIN CA 40 MG TABLET (FP) PO SCH (22:38)
[2020-01-03] MEDS: CARVEDILOL 25 MG TABLET (FP) PO SCH (22:38)
[2020-01-03] MEDS: hydrALAZINE HCL 50 MG TABLET (FP) PO SCH (22:38)
[2020-01-03] MEDS: GABAPENTIN 300 MG CAPSULE PO SCH (22:38)
[2020-01-03] MEDS: INSULIN (LEVEMIR) 100 UNITS/ML UNITS SQ SCH (22:39)
[2020-01-03] MEDS: INSULIN SLIDING SCALE (NOVOLOG) 1 VIAL SQ SCH (22:39)
[2020-01-04 01:54] VITALS: BMI 31.6
[2020-01-04 04:57] LABS: EPI CELLS 17 /uL (0-25.1); HYALINE CASTS 181 /uL (0-3.1); PH,URINE 6.5 (5.0-8.0); URINE APPEARANCE TURBID; URINE BACTERIA 49 /uL (0-1359); URINE BILIRUBIN NEGATIVE (NEGATIVE); URINE COLOR RED; URINE GLUCOSE (UA) NEGATIVE (NEGATIVE); URINE KETONE NEGATIVE (NEGATIVE); URINE LEUK ESTERASE 3+ (NEGATIVE); URINE NITRITE NEGATIVE (NEGATIVE); URINE PROTEIN 4+ (NEGATIVE); URINE RBC 8845 /uL (0-23.9); URINE WBC 23851 /uL (0-25.8)
[2020-01-04] MEDS: hydrALAZINE HCL 50 MG TABLET (FP) PO SCH ×3 (06:38→21:38)
[2020-01-04] MEDS: INSULIN SLIDING SCALE (NOVOLOG) 1 VIAL SQ SCH ×4 (06:39→21:40)
[2020-01-04] MEDS: INSULIN (LEVEMIR) 100 UNITS/ML UNITS SQ SCH ×2 (06:39→21:39)
--- NOTE | 2020-01-04 08:13 | CON.GU ---
Consult Consult Specialty:: urology Reason for Consultation:: uti/acute renal insufficiency with left hydronephrosis and stent. - History of Present Illness Chief Complaint: hematuria/acute renal insufficiency History of Present Illness: 69 y.o. Hebrew speaking male PMHx of HTN, CKD stage 2, Diabetes, CAD, prostate cancer, CVA, nepthrolithiasis, L ureteral stricture with hydronephrosis and high grade bladder neck contracture. The patient is s/p laser ablation and L ureteral stent exchange 06/25/19. The patient is comfortable and will require a left stent exchange. The patient has a history of uroosepsis. The patient denies nausea, vomiting, fever, or chills. He presented with gross hematuria. 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 Cardio/Vascular: Yes: CAD (s/p stenting), HTN, Hyperlipdemia, [place] Gastrointestinal: Yes: Diverticulosis, GERD Renal/: Yes: Renal Inusuff, BPH, Cancer (Prostate), Hematuria, Renal Calculi, UTI (ESBL), Other Infectious Disease: Yes: Other (ESBL UTI) Musculoskeletal: Yes: Other (Osteoarthritis) Endocrine: Yes: Diabetes Mellitus - Past Surgical History Past Surgical History: Yes: Prostatectomy, Stent (PCI, ureteral stenting) - Alcohol/Substance Use Hx Alcohol Use: No History of Substance Use: reports: None - Smoking History Smoking history: Never smoked Have you smoked in the past 12 months: No Aproximately how many cigarettes per day: 0 If you are a former smoker, when did you quit?: 1 YEAR AGO - Social History ADL: Independent History of Recent Travel: No Home Medications - Allergies Allergies/Adverse Reactions: Allergies Allergy/AdvReac Type Severity Reaction Status Date / Time lisinopril Allergy Severe Swelling Verified 01/03/20 11:14 - Home Medications Home Medications: Ambulatory Orders Amlodipine Besylate [Norvasc -] 10 mg PO DAILY 05/11/19 Hydralazine HCl 100 mg PO TID 05/11/19 Labetalol HCl [Normodyne -] 300 mg PO BID 05/11/19 Albuterol Sulfate Inhaler - [Ventolin HFA Inhaler -] 1 - 2 inh PO Q4H 05/14/19 Bromfenac Sodium [Prolensa] 3 ml OD DAILY 05/14/19 Furosemide [Lasix -] 40 mg PO DAILY tablet 05/14/19 Gabapentin [Neurontin -] 300 mg PO BID #40 capsule 05/14/19 Insulin (Levemir) [Levemir Vial] 0 units SQ BID 05/14/19 Insulin Sliding Scale [Novolog Vial Sliding Scale -] 0 units SQ BID 05/14/19 Prednisolone 1% Ophthalmic [Pred Forte 1% -] 1 drop OD QID 05/14/19 Physical Exam- Vital Signs: Vital Signs Temperature 97.8 F 01/04/20 06:00 Pulse Rate 83 01/04/20 06:00 Respiratory Rate 17 01/04/20 06:00 Blood Pressure 139/68 01/04/20 06:00 O2 Sat by Pulse Oximetry (%) 95 01/03/20 23:30 Constitutional: Yes: Well Nourished, No Distress, Calm Eyes: Yes: WNL, Conjunctiva Clear, EOM Intact HENT: Yes: WNL, Atraumatic, Normocephalic Neck: Yes: WNL, Supple, Trachea Midline Cardiovascular: Yes: WNL, Regular Rate and Rhythm Respiratory: Yes: WNL Gastrointestinal: Yes: WNL Renal/: Yes: WNL Kidneys: Yes: WNL Labs: CBC, BMP 01/03/20 11:35 01/03/20 11:35 Imaging - Results Cat Scan: Report Reviewed Assessment/Plan impression acute kidney injury uti plan patient will require a left ureteral stent exchange which will be scheduled on Tuesday. Patient will require medical clearance and to be NPO after midnight on Tuesday. please document covid testing prior to OR
[2020-01-04 09:32] LABS: HEMATOCRIT 29.8 % (35.4-49); HEMOGLOBIN 9.6 GM/dL (11.7-16.9); MCH 26.7 pg (25.7-33.7); MCHC 32.2 g/dl (32.0-35.9); MEAN PLT VOLUME 11.7 fl (7.5-11.1); PLATELET COUNT 107 K/MM3 (134-434); RBC 3.59 M/mm3 (4.00-5.60); RDW 15.2 % (11.9-15.9); WHITE BLOOD COUNT 7.5 K/mm3 (4.0-10.0)
[2020-01-04] MEDS ORDERED: MEROPENEM 1 GM in SODIUM CHLORIDE 100 ML IVPB ONE (10:00)
[2020-01-04 10:13] LABS: POTASSIUM 3.7 mmol/L (3.5-5.1)
[2020-01-04 10:29] LABS: ALBUMIN 3.1 g/dl (3.4-5.0); BILIRUBIN,TOTAL 0.9 mg/dL (0.2-1); BLOOD UREA NITROGEN 50.5 mg/dL (7-18); CALCIUM 8.5 mg/dL (8.5-10.1); MAGNESIUM 2.2 mg/dL (1.8-2.4); PHOSPHOROUS 3.8 mg/dL (2.5-4.9); TOT PROT 6.6 g/dl (6.4-8.2)
[2020-01-04] MEDS ORDERED: PT OWN MED DRAWER 7, Y5N ONE (10:52)
[2020-01-04] MEDS: amLODIPine BESYLATE 10 MG TABLET (FP) PO SCH (10:53)
[2020-01-04] MEDS: ERTAPENEM SODIUM 0.5 GM in SODIUM CHLORIDE 50 ML IVPB SCH (10:53)
[2020-01-04] MEDS: CARVEDILOL 25 MG TABLET (FP) PO SCH ×2 (10:53→21:38)
[2020-01-04] MEDS: GABAPENTIN 300 MG CAPSULE PO SCH ×2 (10:53→21:38)
[2020-01-04] MEDS: SODIUM CHLORIDE 1,000 ML IV SCH ×2 (11:33)
--- NOTE | 2020-01-04 12:03 | CON.ID ---
Consult Consult Specialty:: infectious diseases Referred by:: Reason for Consultation:: uti,hematuria,hydro - History of Present Illness Chief Complaint: abd pain,hematuria History of Present Illness: 69 year old male with pmhx of htn, ckd, DM, CAD, prostate cancer, cva, nephrolithiasis who presents to the ER with left flank pain and dark urine. 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 Cardio/Vascular: Yes: CAD (s/p stenting), HTN, Hyperlipdemia, [place] Gastrointestinal: Yes: Diverticulosis, GERD Renal/: Yes: Renal Inusuff, BPH, Cancer (Prostate), Hematuria, Renal Calculi, UTI (ESBL), Other Infectious Disease: Yes: Other (ESBL UTI) Musculoskeletal: Yes: Other (Osteoarthritis) Endocrine: Yes: Diabetes Mellitus - Past Surgical History Past Surgical History: Yes: Prostatectomy, Stent (PCI, ureteral stenting) - Alcohol/Substance Use Hx Alcohol Use: No History of Substance Use: reports: None - Smoking History Smoking history: Never smoked Have you smoked in the past 12 months: No Aproximately how many cigarettes per day: 0 If you are a former smoker, when did you quit?: 1 YEAR AGO - Social History ADL: Independent History of Recent Travel: No Home Medications - Allergies Allergies/Adverse Reactions: Allergies Allergy/AdvReac Type Severity Reaction Status Date / Time lisinopril Allergy Severe Swelling Verified 01/03/20 11:14 - Home Medications Home Medications: Ambulatory Orders Amlodipine Besylate [Norvasc -] 10 mg PO DAILY 05/11/19 Hydralazine HCl 100 mg PO TID 05/11/19 Labetalol HCl [Normodyne -] 300 mg PO BID 05/11/19 Albuterol Sulfate Inhaler - [Ventolin HFA Inhaler -] 1 - 2 inh PO Q4H 05/14/19 Bromfenac Sodium [Prolensa] 3 ml OD DAILY 05/14/19 Furosemide [Lasix -] 40 mg PO DAILY tablet 05/14/19 Gabapentin [Neurontin -] 300 mg PO BID #40 capsule 05/14/19 Insulin (Levemir) [Levemir Vial] 0 units SQ BID 05/14/19 Insulin Sliding Scale [Novolog Vial Sliding Scale -] 0 units SQ BID 05/14/19 Prednisolone 1% Ophthalmic [Pred Forte 1% -] 1 drop OD QID 05/14/19 Review of Systems - Review of Systems Constitutional: reports: No Symptoms Respiratory: reports: No Symptoms Gastrointestinal: reports: No Symptoms Genitourinary: reports: Flank Pain Musculoskeletal: reports: No Symptoms Integumentary: reports: No Symptoms Neurological: reports: No Symptoms Endocrine: reports: No Symptoms Hematology/Lymphatic: reports: No Symptoms Psychiatric: reports: No Symptoms Physical Exam Vital Signs: Vital Signs Temperature 99 F 01/04/20 10:50 Pulse Rate 81 01/04/20 10:50 Respiratory Rate 20 01/04/20 10:50 Blood Pressure 140/72 01/04/20 10:50 O2 Sat by Pulse Oximetry (%) 95 01/03/20 23:30 Constitutional: Yes: Well Nourished, Calm, Mild Distress Cardiovascular: Yes: Regular Rate and Rhythm Respiratory: Yes: Regular, CTA Bilaterally Gastrointestinal: Yes: Normal Bowel Sounds, Soft Renal/: Yes: [place] Present Musculoskeletal: Yes: WNL Extremities: Yes: WNL Neurological: Yes: Alert, Oriented Psychiatric: Yes: Alert, Oriented Labs: CBC, BMP 01/04/20 08:23 01/04/20 08:23 Assessment/Plan Problem List - Problems (1) Hematuria Code(s): R31.9 - HEMATURIA, UNSPECIFIED (2) CKD (chronic kidney disease) Code(s): N18.9 - CHRONIC KIDNEY DISEASE, UNSPECIFIED uti hematuria plan will continue meropenam change of stents await for cx report rest as per the team
[2020-01-04] MEDS ORDERED: SODIUM CHLORIDE 100 ML IVPB ONE (13:19)
[2020-01-04] MEDS ORDERED: MEROPENEM 1 GM VIAL (RESTRICTED TO ID) IVPB ONE (13:19)
--- NOTE | 2020-01-04 13:35 | PN ---
Progress Note, Physician History of Present Illness: Pt seen and examined at bedside. He is awake and alert. He says that he feels better today. He denies shortness of breath. - Current Medication List Current Medications: Active Medications Acetaminophen (Tylenol -) 650 mg PO Q4H PRN PRN Reason: PAIN LEVEL 7 - 10 Amlodipine Besylate (Norvasc -) 10 mg PO DAILY [facility] Last Admin: 01/04/20 10:53 Dose: 10 mg Documented by: Atorvastatin Calcium (Lipitor -) 40 mg PO HS [facility] Last Admin: 01/03/20 22:38 Dose: 40 mg Documented by: Carvedilol (Coreg -) 25 mg PO BID [facility] Last Admin: 01/04/20 10:53 Dose: 25 mg Documented by: Gabapentin (Neurontin -) 300 mg PO BID [facility] Last Admin: 01/04/20 10:53 Dose: 300 mg Documented by: Hydralazine HCl (Apresoline -) 100 mg PO TID [facility] Last Admin: 01/04/20 13:22 Dose: 100 mg Documented by: Sodium Chloride (Normal Saline -) 1,000 mls @ 100 mls/hr IV ASDIR [facility] Last Admin: 01/04/20 11:33 Dose: 100 mls/hr Documented by: Ertapenem 0.5 gm/ Sodium (Chloride) 50 mls @ 100 mls/hr IVPB Q24H [facility] Last Admin: 01/04/20 10:53 Dose: 100 mls/hr Documented by: Insulin Aspart (Novolog Vial Sliding Scale -) 1 vial SQ ACHS [facility]; Protocol Last Admin: 01/04/20 11:31 Dose: 2 unit Documented by: Insulin Detemir (Levemir Vial) 10 units SQ BID@0700,2200 [facility] Last Admin: 01/04/20 06:39 Dose: 10 unit Documented by: - Objective Vital Signs: Vital Signs Temperature 98 F 01/04/20 13:21 Pulse Rate 77 01/04/20 13:21 Respiratory Rate 20 01/04/20 13:21 Blood Pressure 138/77 01/04/20 13:21 O2 Sat by Pulse Oximetry (%) 95 01/03/20 23:30 Constitutional: Yes: Calm Eyes: Yes: Conjunctiva Clear HENT: Yes: Atraumatic Neck: Yes: Supple Cardiovascular: Yes: S1, S2 Respiratory: Yes: CTA Bilaterally Gastrointestinal: Yes: Normal Bowel Sounds, Soft Genitourinary: Yes: Preciado Present, Hematuria Musculoskeletal: Yes: WNL Edema: No Neurological: Yes: Oriented Psychiatric: Yes: Oriented Labs: CBC, BMP 01/04/20 08:23 01/04/20 08:23 Problem List - Problems (1) Hematuria Code(s): R31.9 - HEMATURIA, UNSPECIFIED (2) CKD (chronic kidney disease) Code(s): N18.9 - CHRONIC KIDNEY DISEASE, UNSPECIFIED Assessment/Plan Current Medications Generic Name Dose Route Start Last Admin Trade Name Freq PRN Reason Stop Dose Admin Acetaminophen 650 mg 01/03/20 20:55 Tylenol - PO Q4H PRN PAIN LEVEL 7 - 10 Amlodipine Besylate 10 mg 01/04/20 10:00 01/04/20 10:53 Norvasc - PO 10 mg DAILY [facility] Administration Atorvastatin Calcium 40 mg 01/03/20 22:00 01/03/20 22:38 Lipitor - PO 40 mg HS L[facility]SEY Administration Carvedilol 25 mg 01/03/20 22:00 01/04/20 10:53 Coreg - PO 25 mg BID [facility] Administration Gabapentin 300 mg 01/03/20 22:00 01/04/20 10:53 Neurontin - PO 300 mg BID [facility] Administration Hydralazine HCl 100 mg 01/03/20 22:00 01/04/20 13:22 Apresoline - PO 100 mg TID L[facility]SEY Administration Sodium Chloride 1,000 mls @ 100 mls/hr 01/03/20 17:45 01/04/20 11:33 Normal Saline - IV 100 mls/hr ASDIR [facility] Administration Ertapenem 0.5 gm/ Sodium 50 mls @ 100 mls/hr 01/04/20 10:00 01/04/20 10:53 Chloride IVPB 100 mls/hr Q24H [facility] Administration Insulin Aspart 1 vial 01/03/20 22:00 01/04/20 11:31 Novolog Vial Sliding Scale - SQ 2 unit ACHS L[facility] Administration Protocol Insulin Detemir 10 units 01/03/20 22:00 01/04/20 06:39 Levemir Vial SQ 10 unit BID@0700,2200 [facility] Administration Impression 1. CKD 2. hx CVA 3. htn 4. DM 5. hypothyroidism 6. left hydro with stent on ct scan 7. UTI 8. thrombocytopenia 9. anemia 10. 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
[2020-01-04] MEDS: SODIUM CHLORIDE 0.45% 1,000 ML IV SCH (14:45)
--- NOTE | 2020-01-04 15:09 | PN ---
Teaching Attending Note Name of Resident: Alfonso Tejeda ATTENDING PHYSICIAN STATEMENT I saw and evaluated the patient. I reviewed the resident's note and discussed the case with the resident. I agree with the resident's findings and plan as documented. SUBJECTIVE: no fever or chills. no pain, he feels better . team used [employer] wool washer with him OBJECTIVE: NAD awake, alert, cooperative CV: RRR,2/6 SM at RUSB and LUSb with radiation to carotid vs carotid bruit Lungs: CTAB Abd:soft, NT, ND , NL BS. 2 small ( 1.5 cm ) fat containing hernias in lower abd on each side of mid line Ext : No edema or erythema on upper or lower extremities valero bag with yellow urine ASSESSMENT AND PLAN: 69 y/o man with h/o HTN, CKD, Diabetes, CAD, prostate cancer, CVA, nepthrolithiasis, L ureteral stricture with hydronephrosis s/p stent placement and high grade bladder neck contracture, and recurrent ESBL UTis who presented with hematuria and pain and was found to have UTI 1- Complicated UTI/pyelonephritis ( low grade fever ) - change abx in am to Ertapenem renally dosed . this was d/w Dr. Garrido. he agrees - follow urine and blood cx - for stent replacement On Tuesday - patient has a heart murmur, but last echo in system with minimal valve abnormalities. will get EKG . 2- MARY: due to infection, prerenal azotemia, and chronic obstruction - improved with IVF - cont carefully and avoid volume overload 3- H/o CAD, HTN: cont HZN, and norvasc will confirm if he is on asa 4- hemturia : resolved DVT px : if not hematuria by tomorrow will place on heparin sq . SCds
--- NOTE | 2020-01-04 20:05 | PN ---
Physical Exam: SUBJECTIVE: Patient seen and examined bedside, in no acute distress, no events overnight. OBJECTIVE: Vital Signs Period Temp Pulse Resp BP Sys/Grissom Pulse Ox Last 24 Hr 97.8 F-99.7 F 75-88 17-20 132-164/64-77 95-98 GENERAL: The patient is awake, alert, in no acute distress. HEAD: Normal with no signs of trauma. EYES: PERRL, extraocular movements intact, conjunctiva clear. ENT: moist mucous membranes. NECK: no JVD LUNGS: Breath sounds equal, clear to auscultation bilaterally HEART: Regular rate and rhythm, murmur heart right sternal border with radiation to carotids v carotid bruit ABDOMEN: Soft, nontender : valero present EXTREMITIES: 2+ pulses, warm, well-perfused, no edema. Laboratory Results - last 24 hr 01/03/20 01/03/20 01/04/20 21:26 22:23 04:40 WBC RBC Hgb Hct MCV MCH MCHC RDW Plt Count MPV Sodium Potassium Chloride Carbon Dioxide Anion Gap BUN Creatinine Est GFR (CKD-EPI)AfAm Est GFR (CKD-EPI)NonAf POC Glucometer 312 303 Random Glucose Calcium Phosphorus Magnesium Total Bilirubin AST ALT Alkaline Phosphatase Total Protein Albumin Urine Color Red Urine Appearance Turbid Urine pH 6.5 Ur Specific [place] 1.016 Urine Protein 4+ H Urine Glucose (UA) Negative Urine Ketones Negative Urine Blood 3+ H Urine Nitrite Negative Urine Bilirubin Negative Urine Urobilinogen 1.0 Ur Leukocyte Esterase 3+ H Urine WBC (Auto) 43638 Urine RBC (Auto) 8845 Urine Casts (Auto) 181 U Pathogenic Cast Auto Non seen U Epithel Cells (Auto) 17 Urine Bacteria (Auto) 49 01/04/20 01/04/20 01/04/20 06:15 08:23 08:23 WBC 7.5 RBC 3.59 L Hgb 9.6 L Hct 29.8 L MCV 83.0 MCH 26.7 MCHC 32.2 RDW 15.2 Plt Count 107 L MPV 11.7 H Sodium 142 Potassium 3.7 Chloride 111 H Carbon Dioxide 21 Anion Gap 10 BUN 50.5 H Creatinine 4.0 H Est GFR (CKD-EPI)AfAm 16.35 Est GFR (CKD-EPI)NonAf 14.11 POC Glucometer 102 Random Glucose 135 H Calcium 8.5 Phosphorus 3.8 Magnesium 2.2 Total Bilirubin 0.9 AST 6 L ALT 14 Alkaline Phosphatase 100 Total Protein 6.6 Albumin 3.1 L Urine Color Urine Appearance Urine pH Ur Specific [place] Urine Protein Urine Glucose (UA) Urine Ketones Urine Blood Urine Nitrite Urine Bilirubin Urine Urobilinogen Ur Leukocyte Esterase Urine WBC (Auto) Urine RBC (Auto) Urine Casts (Auto) U Pathogenic Cast Auto U Epithel Cells (Auto) Urine Bacteria (Auto) 01/04/20 01/04/20 11:30 17:50 WBC RBC Hgb Hct MCV MCH MCHC RDW Plt Count MPV Sodium Potassium Chloride Carbon Dioxide Anion Gap BUN Creatinine Est GFR (CKD-EPI)AfAm Est GFR (CKD-EPI)NonAf POC Glucometer 193 173 Random Glucose Calcium Phosphorus Magnesium Total Bilirubin AST ALT Alkaline Phosphatase Total Protein Albumin Urine Color Urine Appearance Urine pH Ur Specific [place] Urine Protein Urine Glucose (UA) Urine Ketones Urine Blood Urine Nitrite Urine Bilirubin Urine Urobilinogen Ur Leukocyte Esterase Urine WBC (Auto) Urine RBC (Auto) Urine Casts (Auto) U Pathogenic Cast Auto U Epithel Cells (Auto) Urine Bacteria (Auto) Active Medications Generic Name Dose Route Start Last Admin Trade Name Freq PRN Reason Stop Dose Admin Acetaminophen 650 mg 01/03/20 20:55 Tylenol - PO Q4H PRN PAIN LEVEL 7 - 10 Amlodipine Besylate 10 mg 01/04/20 10:00 01/04/20 10:53 Norvasc - PO 10 mg DAILY [facility] Administration Atorvastatin Calcium 40 mg 01/03/20 22:00 01/03/20 22:38 Lipitor - PO 40 mg HS [facility] Administration Carvedilol 25 mg 01/03/20 22:00 01/04/20 10:53 Coreg - PO 25 mg BID [facility] Administration Gabapentin 300 mg 01/03/20 22:00 01/04/20 10:53 Neurontin - PO 300 mg BID [facility] Administration Heparin Sodium (Porcine) 5,000 unit 01/04/20 22:00 Heparin - SQ TID [facility] Hydralazine HCl 100 mg 01/03/20 22:00 01/04/20 13:22 Apresoline - PO 100 mg TID [facility] Administration Ertapenem 0.5 gm/ Sodium 50 mls @ 100 mls/hr 01/04/20 10:00 01/04/20 10:53 Chloride IVPB 100 mls/hr Q24H [facility] Administration Sodium Chloride 1,000 mls @ 75 mls/hr 01/04/20 13:45 01/04/20 14:45 1/2 Normal Saline IV 75 mls/hr ASDIR [facility] Administration Insulin Aspart 1 vial 01/03/20 22:00 01/04/20 17:50 Novolog Vial Sliding Scale - SQ 2 unit ACHS [facility] Administration Protocol Insulin Detemir 10 units 01/03/20 22:00 01/04/20 06:39 Levemir Vial SQ 10 unit BID@0700,2200 [facility] Administration IMGAING: CT: Shows L renal hydronephrosis and L uretal dilation, bilateral adrenal hyperplasia, diverticulosis coli without evidence of acute diverticuli ASSESSMENT/PLAN: 69 y.o. Bahamian speaking male PMHx of HTN, CKD stage 2, Diabetes, CAD, prostate cancer, CVA, nepthrolithiasis, L ureteral stricture with hydronephrosis presents to the ED with an acute onset of left sided flank pain and hematuria UTI vs Pyelonephritis - Patient has had L sided flank pain and hematuria, UA positive - Previous cultures show ESBL E. Coli so switched meropenem to ertapenem - urine cx today say contaminated, blood cx still pending - Avoid NSAIDS & other nephrotoxic drugs - Tylenol 650 Q4 PRN - MARY (baseline Cr 2.7) on admission Cr 4.2, >> today 4 continue to trend - Nephrology consult placed (Dr. Brunson) 1/2 normal saline continue to monitor MARY - Urology consult (Facundo) patient will require a left ureteral stent exchange on Tuesday. Patient will require medical clearance and to be NPO after midnight on Tuesday. document Covid testing prior to procedure (currently pending) Diabetes - Sliding scale - Levemir 10 BIG - Diabetic diet Hypertension - Coreg 25mg PO BID - Amlodipine 10mg PO daily - Hydralizine 100mg PO TID Anemia - Likely due to stage 2 CKD - continue to monitor Thrombocytopenia - Platelets 128 >> today 107 - Likely due to stage 2 CKD - BUN 50.6 >> 50.5 Bilateral Adrenal hyperpiesia - Incidental finding on CT scan - Would recommend outpatient f/u for management FEN - 1/2 NS at 250 ml/hr - Diabetic diet DVT Prophylaxis - Mechanical SCD'S bilateral - Heparin 5000 TID Visit type - Emergency Visit Emergency Visit: Yes ED Registration Date: 01/03/20 Care time: The patient presented to the Emergency Department on the above date and was hospitalized for further evaluation of their emergent condition. - New Patient This patient is new to me today: Yes Date on this admission: 01/05/20 - Critical Care Critical Care patient: No - Discharge Referral Referred to [facility] Med P.C.: Yes ATTENDING PHYSICIAN STATEMENT I saw and evaluated the patient. I reviewed the resident's note and discussed the case with the resident. I agree with the resident's findings and plan as documented. SUBJECTIVE: OBJECTIVE: ASSESSMENT AND PLAN:
[2020-01-04] MEDS: HEPARIN NA (PORCINE) 5,000 UNITS/ML 1ML VIAL SQ SCH (21:38)
[2020-01-04] MEDS: ATORVASTATIN CA 40 MG TABLET (FP) PO SCH (21:38)
[2020-01-05] MEDS: SODIUM CHLORIDE 0.45% 1,000 ML IV SCH ×2 (03:14→14:47)
[2020-01-05] MEDS: hydrALAZINE HCL 50 MG TABLET (FP) PO SCH ×3 (06:20→21:46)
[2020-01-05] MEDS: HEPARIN NA (PORCINE) 5,000 UNITS/ML 1ML VIAL SQ SCH ×3 (06:20→21:46)
[2020-01-05] MEDS: INSULIN (LEVEMIR) 100 UNITS/ML UNITS SQ SCH ×2 (06:21→21:46)
[2020-01-05] MEDS: INSULIN SLIDING SCALE (NOVOLOG) 1 VIAL SQ SCH ×4 (06:21→21:47)
[2020-01-05 07:54] LABS: HEMATOCRIT 28.7 % (35.4-49); HEMOGLOBIN 9.2 GM/dL (11.7-16.9); MCH 26.7 pg (25.7-33.7); MCHC 32.2 g/dl (32.0-35.9); MEAN PLT VOLUME 11.5 fl (7.5-11.1); PLATELET COUNT 105 K/MM3 (134-434); RBC 3.46 M/mm3 (4.00-5.60); WHITE BLOOD COUNT 7.4 K/mm3 (4.0-10.0)
[2020-01-05 08:17] LABS: ALBUMIN 2.9 g/dl (3.4-5.0); BILIRUBIN,TOTAL 0.3 mg/dL (0.2-1); BLOOD UREA NITROGEN 44.5 mg/dL (7-18); CALCIUM 8.3 mg/dL (8.5-10.1); CREATININE 3.4 mg/dL (0.55-1.3); MAGNESIUM 2.2 mg/dL (1.8-2.4); PHOSPHOROUS 3.8 mg/dL (2.5-4.9); POTASSIUM 3.6 mmol/L (3.5-5.1); TOT PROT 6.3 g/dl (6.4-8.2)
--- NOTE | 2020-01-05 09:06 | PN ---
Physical Exam: SUBJECTIVE: Patient seen and examined beside. In no acute distress. used molding machine tender [id number]. Patient verified he take aspirin daily. Nurse reported temp of 99.9 last night with no symptoms, gave Tylenol. OBJECTIVE: Vital Signs Period Temp Pulse Resp BP Sys/Grissom Pulse Ox Last 24 Hr 97.8 F-99.9 F 74-91 16-20 132-154/57-77 95-96 GENERAL: The patient is awake, alert, in no acute distress. HEAD: Normal with no signs of trauma. EYES: PERRL, extraocular movements intact, conjunctiva clear. ENT: moist mucous membranes. NECK: no JVD LUNGS: Breath sounds equal, clear to auscultation bilaterally HEART: Regular rate and rhythm, murmur heart right sternal border with radiation to carotids v carotid bruit ABDOMEN: Soft, nontender : valero present, urine today in bag showed no visible blood, light yellow and clear EXTREMITIES: 2+ pulses, warm, well-perfused, no edema Laboratory Results - last 24 hr 01/05/20 01/05/20 01/05/20 05:35 07:10 07:10 WBC 7.4 RBC 3.46 L Hgb 9.2 L Hct 28.7 L MCV 83.0 MCH 26.7 MCHC 32.2 RDW 15.0 Plt Count 105 L MPV 11.5 H Sodium 144 Potassium 3.6 Chloride 112 H Carbon Dioxide 22 Anion Gap 9 BUN 44.5 H Creatinine 3.4 H Est GFR (CKD-EPI)AfAm 19.90 Est GFR (CKD-EPI)NonAf 17.17 POC Glucometer 141 Random Glucose 127 H Calcium 8.3 L Phosphorus 3.8 Magnesium 2.2 Total Bilirubin 0.3 AST 9 L ALT 16 Alkaline Phosphatase 98 Total Protein 6.3 L Albumin 2.9 L U Pathogenic Cast Auto Active Medications Home Medication List Medication Instructions Recorded Confirmed Type Amlodipine Besylate [Norvasc -] 10 mg PO DAILY 05/11/19 01/03/20 History Hydralazine HCl 100 mg PO TID 05/11/19 01/03/20 History Labetalol HCl [Normodyne -] 300 mg PO BID 05/11/19 01/03/20 History Albuterol Sulfate Inhaler - 1 - 2 inh PO Q4H 05/14/19 01/03/20 History [Ventolin HFA Inhaler -] Bromfenac Sodium [Prolensa] 3 ml OD DAILY 05/14/19 01/03/20 History Insulin (Levemir) [Levemir Vial] 35 units SQ ONCE 05/14/19 01/04/20 History Insulin Sliding Scale [Novolog 0 units SQ BID 05/14/19 01/03/20 History Vial Sliding Scale -] Prednisolone 1% Ophthalmic [Pred 1 drop OD QID 05/14/19 01/03/20 History Forte 1% -] Atorvastatin Calcium [Lipitor] 10 mg PO DAILY 01/04/20 01/04/20 History Gabapentin 400 mg PO BID 01/04/20 01/04/20 History Aspirin [Aspirin EC] 81 mg PO DAILY 01/05/20 01/05/20 History Active Medications Generic Name Dose Route Start Last Admin Trade Name Freq PRN Reason Stop Dose Admin Acetaminophen 650 mg 01/03/20 20:55 01/04/20 21:38 Tylenol - PO 650 mg Q4H PRN Administration PAIN LEVEL 7 - 10 Amlodipine Besylate 10 mg 01/04/20 10:00 01/05/20 10:29 Norvasc - PO 10 mg DAILY [facility] Administration Aspirin 81 mg 01/05/20 10:00 01/05/20 10:28 Asa - PO 81 mg DAILY [facility] Administration Atorvastatin Calcium 40 mg 01/03/20 22:00 01/04/20 21:38 Lipitor - PO 40 mg HS L[facility] Administration Carvedilol 25 mg 01/03/20 22:00 01/05/20 10:29 Coreg - PO 25 mg BID L[facility] Administration Gabapentin 300 mg 01/03/20 22:00 01/05/20 10:29 Neurontin - PO 300 mg BID [facility] Administration Heparin Sodium (Porcine) 5,000 unit 01/04/20 22:00 01/05/20 14:46 Heparin - SQ 5,000 unit TID [facility] Administration Hydralazine HCl 100 mg 01/03/20 22:00 01/05/20 14:46 Apresoline - PO 100 mg TID [facility] Administration Ertapenem 0.5 gm/ Sodium 50 mls @ 100 mls/hr 01/04/20 10:00 01/05/20 10:30 Chloride IVPB 100 mls/hr Q24H [facility] Administration Sodium Chloride 1,000 mls @ 84 mls/hr 01/05/20 14:26 01/05/20 14:47 1/2 Normal Saline IV 84 mls/hr ASDIR [facility] Administration Insulin Aspart 1 vial 01/03/20 22:00 01/05/20 16:40 Novolog Vial Sliding Scale - SQ 2 unit ACHS [facility] Administration Protocol Insulin Detemir 10 units 01/03/20 22:00 01/05/20 06:21 Levemir Vial SQ 10 unit BID@0700,2200 [facility] Administration IMGAING: CT: Shows L renal hydronephrosis and L uretal dilation, bilateral adrenal hyperplasia, diverticulosis coli without evidence of acute diverticuli ASSESSMENT/PLAN: 69 y.o. Sinhala speaking male PMHx of HTN, CKD stage 2, Diabetes, CAD, prostate cancer, CVA, nepthrolithiasis, L ureteral stricture with hydronephrosis presents to the ED with an acute onset of left sided flank pain and hematuria UTI vs Pyelonephritis - Patient has had L sided flank pain and hematuria, UA positive - Previous cultures show ESBL E. Coli so switched meropenem to ertapenem - urine cx today say contaminated, blood cx still pending - Avoid NSAIDS & other nephrotoxic drugs - Tylenol 650 Q4 PRN - Nephrology consult placed (Dr. Brunson) 1/2 normal saline continue to monitor MARY - Urology consult (Facundo) patient will require a left ureteral stent exchange on Tuesday. Patient will require medical clearance and to be NPO after midnight on Tuesday. document Covid testing prior to procedure - NEGATIVE 01/04 MARY on top of CKD - BUN 50.6 >> 50.5 >> today 44.5 - Cr 4.2 >> 4.0 >> today 3.4 (baseline 2.7) Diabetes - Sliding scale - Levemir 10 BIG - Diabetic diet Hypertension - Coreg 25mg PO BID - Amlodipine 10mg PO daily - Hydralizine 100mg PO TID Anemia - Likely due to stage 2 CKD - continue to monitor Thrombocytopenia - Platelets 128 >> 107 >> 105 - Likely due to stage 2 CKD - continue to trend Bilateral Adrenal hyperpiesia - Incidental finding on CT scan - Would recommend outpatient f/u for management FEN - 1/2 NS at 250 ml/hr - Diabetic diet DVT Prophylaxis - Mechanical SCD'S bilateral - Heparin 5000 TID - ASA 81 MG daily - restarted today after confirmed Visit type - Emergency Visit Emergency Visit: Yes ED Registration Date: 01/03/20 Care time: The patient presented to the Emergency Department on the above date and was hospitalized for further evaluation of their emergent condition. - New Patient This patient is new to me today: No - Critical Care Critical Care patient: No - Discharge Referral Referred to [facility] Med P.C.: No ATTENDING PHYSICIAN STATEMENT I saw and evaluated the patient. I reviewed the resident's note and discussed the case with the resident. I agree with the resident's findings and plan as documented. SUBJECTIVE: OBJECTIVE: ASSESSMENT AND PLAN:
[2020-01-05] MEDS: ASPIRIN 81 MG CHEWABLE TABLETS PO SCH (10:28)
[2020-01-05] MEDS: amLODIPine BESYLATE 10 MG TABLET (FP) PO SCH (10:29)
[2020-01-05] MEDS: GABAPENTIN 300 MG CAPSULE PO SCH ×2 (10:29→21:46)
[2020-01-05] MEDS: CARVEDILOL 25 MG TABLET (FP) PO SCH ×2 (10:29→21:46)
[2020-01-05] MEDS: ERTAPENEM SODIUM 0.5 GM in SODIUM CHLORIDE 50 ML IVPB SCH (10:30)
[2020-01-05] MEDS ORDERED: INSULIN (NOVOLOG) ASPART 100 UNITS/ML 10ML VIAL ONE ×2 (11:13→21:44)
--- NOTE | 2020-01-05 11:35 | EKG ---
Test Reason : Blood Pressure : / mmHG Vent. Rate : 077 BPM Atrial Rate : 077 BPM P-R Int : 228 ms QRS Dur : 084 ms QT Int : 390 ms P-R-T Axes : 061 -26 043 degrees QTc Int : 441 ms SINUS RHYTHM WITH 1ST DEGREE A-V BLOCK ANTEROSEPTAL INFARCT (CITED ON OR BEFORE 11-MAY-2019) ABNORMAL ECG WHEN COMPARED WITH ECG OF 11-MAY-2019 11:51, QUESTIONABLE CHANGE IN INITIAL FORCES OF SEPTAL LEADS Confirmed by KYLAH OG MD ([id number]) on 01/05/2020 11:35:32 AM Referred By: Confirmed By:KYLAH OG MD
--- NOTE | 2020-01-05 14:35 | PN ---
Progress Note, Physician Chief Complaint: MARY History of Present Illness: Seen and examined at the bedside awake and alert offers no acute complaints feels better making urine on IVF - Current Medication List Current Medications: Active Medications Acetaminophen (Tylenol -) 650 mg PO Q4H PRN PRN Reason: PAIN LEVEL 7 - 10 Last Admin: 01/04/20 21:38 Dose: 650 mg Documented by: Amlodipine Besylate (Norvasc -) 10 mg PO DAILY [facility] Last Admin: 01/05/20 10:29 Dose: 10 mg Documented by: Aspirin (Asa -) 81 mg PO DAILY [facility] Last Admin: 01/05/20 10:28 Dose: 81 mg Documented by: Atorvastatin Calcium (Lipitor -) 40 mg PO HS [facility] Last Admin: 01/04/20 21:38 Dose: 40 mg Documented by: Carvedilol (Coreg -) 25 mg PO BID [facility] Last Admin: 01/05/20 10:29 Dose: 25 mg Documented by: Gabapentin (Neurontin -) 300 mg PO BID [facility] Last Admin: 01/05/20 10:29 Dose: 300 mg Documented by: Heparin Sodium (Porcine) (Heparin -) 5,000 unit SQ TID [facility] Last Admin: 01/05/20 06:20 Dose: 5,000 unit Documented by: Hydralazine HCl (Apresoline -) 100 mg PO TID [facility] Last Admin: 01/05/20 06:20 Dose: 100 mg Documented by: Ertapenem 0.5 gm/ Sodium (Chloride) 50 mls @ 100 mls/hr IVPB Q24H [facility] Last Admin: 01/05/20 10:30 Dose: 100 mls/hr Documented by: Sodium Chloride (1/2 Normal Saline) 1,000 mls @ 84 mls/hr IV ASDIR [facility] Insulin Aspart (Novolog Vial Sliding Scale -) 1 vial SQ ACHS [facility]; Protocol Last Admin: 01/05/20 11:14 Dose: 2 unit Documented by: Insulin Detemir (Levemir Vial) 10 units SQ BID@0700,2200 [facility] Last Admin: 01/05/20 06:21 Dose: 10 unit Documented by: - Objective Vital Signs: Vital Signs Temperature 97.9 F 01/05/20 10:00 Pulse Rate 78 01/05/20 10:00 Respiratory Rate 21 H 01/05/20 10:00 Blood Pressure 150/77 01/05/20 10:00 O2 Sat by Pulse Oximetry (%) 97 01/05/20 09:00 Constitutional: Yes: No Distress HENT: Yes: Atraumatic Neck: Yes: Supple Cardiovascular: Yes: Regular Rate and Rhythm Gastrointestinal: Yes: Soft Extremities: No: Cyanosis Edema: No Labs: CBC, BMP 01/05/20 07:10 01/05/20 07:10 Assessment/Plan Impression 1. CKD 2. hx CVA 3. htn 4. DM 5. hypothyroidism 6. left hydro with stent on ct scan 7. UTI 8. thrombocytopenia 9. anemia 10. MARY Plan Renal function improving. Continue 1/2 NS, increase to 2L daily for stent exchange on Tuesday trend renal function and electrolytes daily Abx as per JACQUELYN Selby DO
--- NOTE | 2020-01-05 15:54 | PN ---
Progress Note, Physician History of Present Illness: stable no complaints - Current Medication List Current Medications: Active Medications Acetaminophen (Tylenol -) 650 mg PO Q4H PRN PRN Reason: PAIN LEVEL 7 - 10 Last Admin: 01/04/20 21:38 Dose: 650 mg Documented by: Amlodipine Besylate (Norvasc -) 10 mg PO DAILY [facility] Last Admin: 01/05/20 10:29 Dose: 10 mg Documented by: Aspirin (Asa -) 81 mg PO DAILY [facility] Last Admin: 01/05/20 10:28 Dose: 81 mg Documented by: Atorvastatin Calcium (Lipitor -) 40 mg PO HS [facility] Last Admin: 01/04/20 21:38 Dose: 40 mg Documented by: Carvedilol (Coreg -) 25 mg PO BID [facility] Last Admin: 01/05/20 10:29 Dose: 25 mg Documented by: Gabapentin (Neurontin -) 300 mg PO BID [facility] Last Admin: 01/05/20 10:29 Dose: 300 mg Documented by: Heparin Sodium (Porcine) (Heparin -) 5,000 unit SQ TID [facility] Last Admin: 01/05/20 14:46 Dose: 5,000 unit Documented by: Hydralazine HCl (Apresoline -) 100 mg PO TID [facility] Last Admin: 01/05/20 14:46 Dose: 100 mg Documented by: Ertapenem 0.5 gm/ Sodium (Chloride) 50 mls @ 100 mls/hr IVPB Q24H [facility] Last Admin: 01/05/20 10:30 Dose: 100 mls/hr Documented by: Sodium Chloride (1/2 Normal Saline) 1,000 mls @ 84 mls/hr IV ASDIR [facility] Last Admin: 01/05/20 14:47 Dose: 84 mls/hr Documented by: Insulin Aspart (Novolog Vial Sliding Scale -) 1 vial SQ ACHS [facility]; Protocol Last Admin: 01/05/20 11:14 Dose: 2 unit Documented by: Insulin Detemir (Levemir Vial) 10 units SQ BID@0700,2200 [facility] Last Admin: 01/05/20 06:21 Dose: 10 unit Documented by: - Objective Vital Signs: Vital Signs Temperature 98.1 F 01/05/20 14:00 Pulse Rate 78 01/05/20 14:00 Respiratory Rate 14 01/05/20 14:00 Blood Pressure 141/84 01/05/20 14:00 O2 Sat by Pulse Oximetry (%) 97 01/05/20 09:00 Constitutional: Yes: No Distress, Calm Cardiovascular: Yes: S1, S2 Respiratory: Yes: Regular, CTA Bilaterally Gastrointestinal: Yes: Normal Bowel Sounds, Soft Genitourinary: Yes: Preciado Present Musculoskeletal: Yes: WNL Extremities: Yes: WNL Neurological: Yes: Alert, Oriented Psychiatric: Yes: Alert, Oriented Labs: CBC, BMP 01/05/20 07:10 01/05/20 07:10 Assessment/Plan Problem List - Problems (1) Hematuria Code(s): R31.9 - HEMATURIA, UNSPECIFIED (2) CKD (chronic kidney disease) Code(s): N18.9 - CHRONIC KIDNEY DISEASE, UNSPECIFIED uti hematuria plan continue ertapenam await for results
--- NOTE | 2020-01-05 17:18 | PN ---
Teaching Attending Note Name of Resident: Rena Clarke ATTENDING PHYSICIAN STATEMENT I saw and evaluated the patient. I reviewed the resident's note and discussed the case with the resident. I agree with the resident's findings and plan as documented. SUBJECTIVE: no fever or chills. no pain no SOB OBJECTIVE: OBJECTIVE: NAD awake, alert, cooperative CV: RRR,2/6 SM at RUSB and LUSb with radiation to carotid vs carotid bruit Lungs: CTAB Abd:soft, NT, ND , NL BS. 2 small ( 1.5 cm ) fat containing hernias in lower abd on each side of mid line Ext : No edema or erythema on upper or lower extremities valero bag with yellow urine ASSESSMENT AND PLAN: 69 y/o man with h/o HTN, CKD, Diabetes, CAD, prostate cancer, CVA, nepthrolithiasis, L ureteral stricture with hydronephrosis s/p stent placement and high grade bladder neck contracture, and recurrent ESBL UTis who presented with hematuria and pain and was found to have UTI 1- Complicated UTI/pyelonephritis - cont Ertapenem . urine cx was conaminant. repeat pending - for stent replacement On Tuesday. 2- MARY: due to infection, prerenal azotemia, and chronic obstruction - improved with IVF -cont IVF with new ra te adjustment 3- H/o CAD, HTN: cont HZN, and norvasc it was confirmed that he is on ASA 4- Hemturia : resolved DVT px : start heparin sq. will hold on Tuesday for procedure
[2020-01-05] MEDS: ATORVASTATIN CA 40 MG TABLET (FP) PO SCH (21:46)
[2020-01-06] MEDS: SODIUM CHLORIDE 0.45% 1,000 ML IV SCH ×3 (02:57→16:24)
[2020-01-06] MEDS: INSULIN SLIDING SCALE (NOVOLOG) 1 VIAL SQ SCH ×4 (06:20→22:03)
[2020-01-06] MEDS: INSULIN (LEVEMIR) 100 UNITS/ML UNITS SQ SCH ×2 (06:20→22:00)
[2020-01-06] MEDS: HEPARIN NA (PORCINE) 5,000 UNITS/ML 1ML VIAL SQ SCH ×3 (06:20→22:00)
[2020-01-06] MEDS: hydrALAZINE HCL 50 MG TABLET (FP) PO SCH ×3 (06:20→22:00)
[2020-01-06 08:46] LABS: HEMATOCRIT 29.5 % (35.4-49); HEMOGLOBIN 9.5 GM/dL (11.7-16.9); MCH 26.3 pg (25.7-33.7); MCHC 32.3 g/dl (32.0-35.9); MEAN CELL VOLUME 81.3 fl (80-96); PLATELET COUNT 131 K/MM3 (134-434); RBC 3.63 M/mm3 (4.00-5.60); RDW 14.5 % (11.9-15.9)
[2020-01-06 09:10] LABS: BLOOD UREA NITROGEN 37.3 mg/dL (7-18); CALCIUM 8.7 mg/dL (8.5-10.1); MAGNESIUM 2.1 mg/dL (1.8-2.4); POTASSIUM 3.8 mmol/L (3.5-5.1)
[2020-01-06] MEDS ORDERED: PT OWN MED DRAWER 7, Y5N ONE (09:30)
[2020-01-06] MEDS: ASPIRIN 81 MG CHEWABLE TABLETS PO SCH (09:32)
[2020-01-06] MEDS: CARVEDILOL 25 MG TABLET (FP) PO SCH ×2 (09:32→21:59)
[2020-01-06] MEDS: GABAPENTIN 300 MG CAPSULE PO SCH ×2 (09:32→21:59)
[2020-01-06] MEDS: amLODIPine BESYLATE 10 MG TABLET (FP) PO SCH (09:32)
[2020-01-06] MEDS: ERTAPENEM SODIUM 0.5 GM in SODIUM CHLORIDE 50 ML IVPB SCH (10:58)
[2020-01-06] MEDS ORDERED: INSULIN (NOVOLOG) ASPART 100 UNITS/ML 10ML VIAL ONE ×2 (11:19→16:57)
--- NOTE | 2020-01-06 12:22 | PN ---
Progress Note, Physician Chief Complaint: MARY History of Present Illness: Seen and examined at the bedside awake and alert offers no acute complaints no sob, cp, fever, chills no flank pain making urine good appetite - Current Medication List Current Medications: Active Medications Acetaminophen (Tylenol -) 650 mg PO Q4H PRN PRN Reason: PAIN LEVEL 7 - 10 Last Admin: 01/04/20 21:38 Dose: 650 mg Documented by: Amlodipine Besylate (Norvasc -) 10 mg PO DAILY [facility] Last Admin: 01/06/20 09:32 Dose: 10 mg Documented by: Aspirin (Asa -) 81 mg PO DAILY [facility] Last Admin: 01/06/20 09:32 Dose: 81 mg Documented by: Atorvastatin Calcium (Lipitor -) 40 mg PO HS [facility] Last Admin: 01/05/20 21:46 Dose: 40 mg Documented by: Carvedilol (Coreg -) 25 mg PO BID [facility] Last Admin: 01/06/20 09:32 Dose: 25 mg Documented by: Gabapentin (Neurontin -) 300 mg PO BID [facility] Last Admin: 01/06/20 09:32 Dose: 300 mg Documented by: Heparin Sodium (Porcine) (Heparin -) 5,000 unit SQ TID [facility] Last Admin: 01/06/20 06:20 Dose: 5,000 unit Documented by: Hydralazine HCl (Apresoline -) 100 mg PO TID [facility] Last Admin: 01/06/20 06:20 Dose: 100 mg Documented by: Ertapenem 0.5 gm/ Sodium (Chloride) 50 mls @ 100 mls/hr IVPB Q24H [facility] Last Admin: 01/06/20 10:58 Dose: 100 mls/hr Documented by: Sodium Chloride (1/2 Normal Saline) 1,000 mls @ 84 mls/hr IV ASDIR [facility] Last Admin: 01/06/20 02:57 Dose: 84 mls/hr Documented by: Insulin Aspart (Novolog Vial Sliding Scale -) 1 vial SQ ACHS [facility]; Protocol Last Admin: 01/06/20 11:19 Dose: 2 unit Documented by: Insulin Detemir (Levemir Vial) 10 units SQ BID@0700,2200 [facility] Last Admin: 01/06/20 06:20 Dose: 10 unit Documented by: - Objective Vital Signs: Vital Signs Temperature 98.6 F 07/12/20 06:00 Pulse Rate 84 01/06/20 10:00 Respiratory Rate 18 01/06/20 10:00 Blood Pressure 140/80 01/06/20 10:00 O2 Sat by Pulse Oximetry (%) 96 01/06/20 09:00 Constitutional: Yes: No Distress HENT: Yes: Atraumatic Neck: Yes: Supple Cardiovascular: Yes: Regular Rate and Rhythm Respiratory: Yes: Regular Gastrointestinal: Yes: Soft Extremities: No: Cyanosis Edema: No Labs: CBC, BMP 01/06/20 08:10 01/06/20 08:10 Assessment/Plan Impression 1. CKD 2. hx CVA 3. htn 4. DM 5. hypothyroidism 6. left hydro with stent on ct scan 7. UTI 8. thrombocytopenia 9. anemia 10. MARY Plan Renal function continuing to improve Continue 1/2 NS, increase to 2L daily no overt electrolyte or acid/base disturbances for stent exchange on Tuesday trend renal function and electrolytes daily Abx as per JACQUELYN Selby DO
--- NOTE | 2020-01-06 12:27 | PN ---
Progress Note, Physician History of Present Illness: stable no new issues - Current Medication List Current Medications: Active Medications Acetaminophen (Tylenol -) 650 mg PO Q4H PRN PRN Reason: PAIN LEVEL 7 - 10 Last Admin: 01/04/20 21:38 Dose: 650 mg Documented by: Amlodipine Besylate (Norvasc -) 10 mg PO DAILY [facility] Last Admin: 01/06/20 09:32 Dose: 10 mg Documented by: Aspirin (Asa -) 81 mg PO DAILY [facility] Last Admin: 01/06/20 09:32 Dose: 81 mg Documented by: Atorvastatin Calcium (Lipitor -) 40 mg PO HS [facility] Last Admin: 01/05/20 21:46 Dose: 40 mg Documented by: Carvedilol (Coreg -) 25 mg PO BID [facility] Last Admin: 01/06/20 09:32 Dose: 25 mg Documented by: Gabapentin (Neurontin -) 300 mg PO BID [facility] Last Admin: 01/06/20 09:32 Dose: 300 mg Documented by: Heparin Sodium (Porcine) (Heparin -) 5,000 unit SQ TID [facility] Last Admin: 01/06/20 06:20 Dose: 5,000 unit Documented by: Hydralazine HCl (Apresoline -) 100 mg PO TID [facility] Last Admin: 01/06/20 06:20 Dose: 100 mg Documented by: Ertapenem 0.5 gm/ Sodium (Chloride) 50 mls @ 100 mls/hr IVPB Q24H [facility] Last Admin: 01/06/20 10:58 Dose: 100 mls/hr Documented by: Sodium Chloride (1/2 Normal Saline) 1,000 mls @ 84 mls/hr IV ASDIR [facility] Last Admin: 01/06/20 02:57 Dose: 84 mls/hr Documented by: Insulin Aspart (Novolog Vial Sliding Scale -) 1 vial SQ ACHS [facility]; Protocol Last Admin: 01/06/20 11:19 Dose: 2 unit Documented by: Insulin Detemir (Levemir Vial) 10 units SQ BID@0700,2200 [facility] Last Admin: 01/06/20 06:20 Dose: 10 unit Documented by: - Objective Vital Signs: Vital Signs Temperature 98.6 F 01/06/20 06:00 Pulse Rate 84 01/06/20 10:00 Respiratory Rate 18 01/06/20 10:00 Blood Pressure 140/80 01/06/20 10:00 O2 Sat by Pulse Oximetry (%) 96 01/06/20 09:00 Constitutional: Yes: No Distress, Calm Cardiovascular: Yes: S1, S2 Respiratory: Yes: Regular, CTA Bilaterally Gastrointestinal: Yes: Normal Bowel Sounds, Soft Genitourinary: Yes: [place] Present Musculoskeletal: Yes: WNL Extremities: Yes: WNL Neurological: Yes: Alert, Oriented Psychiatric: Yes: Alert, Oriented Labs: CBC, BMP 01/06/20 08:10 01/06/20 08:10 Assessment/Plan Problem List - Problems (1) Hematuria Code(s): R31.9 - HEMATURIA, UNSPECIFIED (2) CKD (chronic kidney disease) Code(s): N18.9 - CHRONIC KIDNEY DISEASE, UNSPECIFIED uti hematuria plan continue ertapenam await for results
--- NOTE | 2020-01-06 15:09 | PN ---
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 Objective: Vital Signs: Last Vital Signs Temp Pulse Resp BP Pulse Ox 97.6 F 72 18 138/77 96 01/06/20 14:19 01/06/20 14:19 01/06/20 14:19 01/06/20 14:19 01/06/20 09:00 Laboratory Results - last 24 hr 01/05/20 01/05/20 01/06/20 16:37 21:41 06:16 WBC RBC Hgb Hct MCV MCH MCHC RDW Plt Count MPV Sodium Potassium Chloride Carbon Dioxide Anion Gap BUN Creatinine Est GFR (CKD-EPI)AfAm Est GFR (CKD-EPI)NonAf POC Glucometer 152 200 128 Random Glucose Calcium Phosphorus Magnesium 01/06/20 01/06/20 01/06/20 08:10 08:10 11:17 WBC 8.0 RBC 3.63 L Hgb 9.5 L Hct 29.5 L MCV 81.3 MCH 26.3 MCHC 32.3 RDW 14.5 Plt Count 131 L D MPV 11.0 Sodium 143 Potassium 3.8 Chloride 114 H Carbon Dioxide 20 L Anion Gap 9 BUN 37.3 H Creatinine 3.0 H Est GFR (CKD-EPI)AfAm 23.15 Est GFR (CKD-EPI)NonAf 19.97 POC Glucometer 155 Random Glucose 122 H Calcium 8.7 Phosphorus 4.0 Magnesium 2.1 OBJECTIVE: NAD CV: RRR,2/6 SM at RUSB and LUSb with radiation to carotid vs carotid bruit Lungs: CTAB Abd:soft, NT, ND , NL BS. 2 small ( 1.5 cm ) fat containing hernias in lower abd on each side of mid line Ext : No edema or erythema on upper or lower extremities valero bag with yellow urine ASSESSMENT AND PLAN: 69 y/o man with h/o HTN, CKD, Diabetes, CAD, prostate cancer, CVA, nepthrolithiasis, L ureteral stricture with hydronephrosis s/p stent placement and high grade bladder neck contracture, and recurrent ESBL UTis who presented with hematuria and pain and was found to have UTI 1- Complicated UTI/pyelonephritis - cont Ertapenem . urine cx was conaminant. repeat negative on ABx - for stent replacement On Tuesday. - make NPO after MN and hold heparin for procerue . 2- MARY: due to infection, prerenal azotemia, and chronic obstruction -cont IVF 3- H/o CAD, HTN: cont HZN, and norvasc cont ASA 4- Hemturia : resolved DVT px : hold on Tuesday for procedure apply SCds at night only, due to risk of fall ( tries to walk with them on ) Visit type - Emergency Visit Emergency Visit: Yes ED Registration Date: 01/03/20 Care time: The patient presented to the Emergency Department on the above date and was hospitalized for further evaluation of their emergent condition. - New Patient This patient is new to me today: No - Critical Care Critical Care patient: No
[2020-01-06] MEDS ORDERED: FAMOTIDINE 20 MG TABLET PO ONE (20:26)
[2020-01-06] MEDS: ATORVASTATIN CA 40 MG TABLET (FP) PO SCH (21:59)
[2020-01-07] MEDS: SODIUM CHLORIDE 0.45% 1,000 ML IV SCH ×4 (03:12→15:24)
[2020-01-07] MEDS: hydrALAZINE HCL 50 MG TABLET (FP) PO SCH ×3 (06:06→21:36)
[2020-01-07] MEDS: INSULIN (LEVEMIR) 100 UNITS/ML UNITS SQ SCH ×2 (06:06→21:31)
[2020-01-07] MEDS: INSULIN SLIDING SCALE (NOVOLOG) 1 VIAL SQ SCH ×4 (06:16→21:30)
[2020-01-07 08:50] LABS: BASO % 0.9 % (0-2.0); EOS % 4.8 % (0-4.5); HEMOGLOBIN 9.6 GM/dL (11.7-16.9); LYMPH % 21.6 % (8-40); MEAN CELL VOLUME 81.1 fl (80-96); MONO % 7.3 % (3.8-10.2); NEUT % 65.4 % (42.8-82.8); PLATELET COUNT 136 K/MM3 (134-434); RDW 14.4 % (11.9-15.9); WHITE BLOOD COUNT 6.9 K/mm3 (4.0-10.0)
[2020-01-07 08:56] LABS: INR 0.92 (0.83-1.09); PROTHROMBIN TIME (PATIENT) 10.8 SEC (9.7-13.0)
[2020-01-07 09:11] LABS: BLOOD UREA NITROGEN 36.2 mg/dL (7-18); CALCIUM 8.8 mg/dL (8.5-10.1); CREATININE 2.8 mg/dL (0.55-1.3); MAGNESIUM 2.1 mg/dL (1.8-2.4); PHOSPHOROUS 4.2 mg/dL (2.5-4.9); POTASSIUM 3.6 mmol/L (3.5-5.1)
[2020-01-07] MEDS: ASPIRIN 81 MG CHEWABLE TABLETS PO SCH (09:28)
[2020-01-07] MEDS: MEROPENEM 1 GM in DEXTROSE 5%-WATER 100 ML IVPB SCH ×2 (09:32→09:54)
[2020-01-07] MEDS: ERTAPENEM SODIUM 0.5 GM in SODIUM CHLORIDE 50 ML IVPB SCH (10:27)
[2020-01-07] MEDS: amLODIPine BESYLATE 10 MG TABLET (FP) PO SCH (10:27)
[2020-01-07] MEDS: CARVEDILOL 25 MG TABLET (FP) PO SCH ×2 (10:27→21:36)
[2020-01-07] MEDS: GABAPENTIN 300 MG CAPSULE PO SCH ×2 (10:27→21:36)
[2020-01-07] MEDS ORDERED: PROPOFOL 20 ML ONE (11:46)
[2020-01-07] MEDS ORDERED: LIDOCAINE HCL/PF 2% SDV 5ML VIAL ONE (11:46)
[2020-01-07] MEDS ORDERED: MIDAZOLAM HCL 2 MG/2 ML SINGLE DOSE VIAL ONE (11:46)
--- NOTE | 2020-01-07 12:32 | PN ---
Progress Note, Physician History of Present Illness: patient stable no new issues - Current Medication List Current Medications: Active Medications Acetaminophen (Tylenol -) 650 mg PO Q4H PRN PRN Reason: PAIN LEVEL 7 - 10 Last Admin: 01/04/20 21:38 Dose: 650 mg Documented by: Amlodipine Besylate (Norvasc -) 10 mg PO DAILY [facility] Last Admin: 01/07/20 10:27 Dose: 10 mg Documented by: Aspirin (Asa -) 81 mg PO DAILY [facility] Last Admin: 01/07/20 09:28 Dose: Not Given Documented by: Atorvastatin Calcium (Lipitor -) 40 mg PO HS [facility] Last Admin: 01/06/20 21:59 Dose: 40 mg Documented by: Carvedilol (Coreg -) 25 mg PO BID [facility] Last Admin: 01/07/20 10:27 Dose: 25 mg Documented by: Gabapentin (Neurontin -) 300 mg PO BID [facility] Last Admin: 01/07/20 10:27 Dose: 300 mg Documented by: Heparin Sodium (Porcine) (Heparin -) 5,000 unit SQ TID [facility] Last Admin: 01/06/20 22:00 Dose: 5,000 unit Documented by: Hydralazine HCl (Apresoline -) 100 mg PO TID [facility] Last Admin: 01/07/20 06:06 Dose: 100 mg Documented by: Ertapenem 0.5 gm/ Sodium (Chloride) 50 mls @ 100 mls/hr IVPB Q24H [facility] Last Admin: 01/07/20 10:27 Dose: 100 mls/hr Documented by: Sodium Chloride (1/2 Normal Saline) 1,000 mls @ 84 mls/hr IV ASDIR [facility] Last Admin: 01/07/20 03:12 Dose: 84 mls/hr Documented by: Insulin Aspart (Novolog Vial Sliding Scale -) 1 vial SQ ACHS [facility]; Protocol Last Admin: 01/07/20 11:15 Dose: Not Given Documented by: Insulin Detemir (Levemir Vial) 10 units SQ BID@0700,2200 [facility] Last Admin: 01/07/20 06:06 Dose: 5 unit Documented by: - Objective Vital Signs: Vital Signs Temperature 98.2 F 01/07/20 10:00 Pulse Rate 77 01/07/20 10:00 Respiratory Rate 18 01/07/20 10:00 Blood Pressure 148/83 01/07/20 10:00 O2 Sat by Pulse Oximetry (%) 97 01/07/20 10:00 Labs: CBC, BMP 01/07/20 08:18 01/07/20 08:18 INR, PTT INR 0.92 (0.83-1.09) 01/07/20 08:18
--- NOTE | 2020-01-07 13:05 | PN ---
Progress Note, Physician History of Present Illness: Pt seen and examined at bedside. He is awake and alert. He denies shortness of breath. - Current Medication List Current Medications: Active Medications Acetaminophen (Tylenol -) 650 mg PO Q4H PRN PRN Reason: PAIN LEVEL 7 - 10 Last Admin: 01/04/20 21:38 Dose: 650 mg Documented by: Amlodipine Besylate (Norvasc -) 10 mg PO DAILY [facility] Last Admin: 01/07/20 10:27 Dose: 10 mg Documented by: Aspirin (Asa -) 81 mg PO DAILY [facility] Last Admin: 01/07/20 09:28 Dose: Not Given Documented by: Atorvastatin Calcium (Lipitor -) 40 mg PO HS [facility] Last Admin: 01/06/20 21:59 Dose: 40 mg Documented by: Carvedilol (Coreg -) 25 mg PO BID [facility] Last Admin: 01/07/20 10:27 Dose: 25 mg Documented by: Gabapentin (Neurontin -) 300 mg PO BID [facility] Last Admin: 01/07/20 10:27 Dose: 300 mg Documented by: Heparin Sodium (Porcine) (Heparin -) 5,000 unit SQ TID [facility] Last Admin: 01/06/20 22:00 Dose: 5,000 unit Documented by: Hydralazine HCl (Apresoline -) 100 mg PO TID [facility] Last Admin: 01/07/20 06:06 Dose: 100 mg Documented by: Ertapenem 0.5 gm/ Sodium (Chloride) 50 mls @ 100 mls/hr IVPB Q24H [facility] Last Admin: 01/07/20 10:27 Dose: 100 mls/hr Documented by: Sodium Chloride (1/2 Normal Saline) 1,000 mls @ 84 mls/hr IV ASDIR [facility] Last Admin: 01/07/20 03:12 Dose: 84 mls/hr Documented by: Insulin Aspart (Novolog Vial Sliding Scale -) 1 vial SQ ACHS [facility]; Protocol Last Admin: 01/07/20 11:15 Dose: Not Given Documented by: Insulin Detemir (Levemir Vial) 10 units SQ BID@0700,2200 [facility] Last Admin: 01/07/20 06:06 Dose: 5 unit Documented by: - Objective Vital Signs: Vital Signs Temperature 98.2 F 01/07/20 10:00 Pulse Rate 77 01/07/20 10:00 Respiratory Rate 18 01/07/20 10:00 Blood Pressure 148/83 01/07/20 10:00 O2 Sat by Pulse Oximetry (%) 97 01/07/20 10:00 Constitutional: Yes: Calm Eyes: Yes: Conjunctiva Clear HENT: Yes: Atraumatic Cardiovascular: Yes: S1, S2 Respiratory: Yes: CTA Bilaterally Gastrointestinal: Yes: Normal Bowel Sounds, Soft Genitourinary: Yes: Incontinence Musculoskeletal: Yes: WNL Edema: No Neurological: Yes: Oriented Psychiatric: Yes: Oriented Labs: CBC, BMP 01/07/20 08:18 01/07/20 08:18 INR, PTT INR 0.92 (0.83-1.09) 01/07/20 08:18 Problem List - Problems (1) Hematuria Code(s): R31.9 - HEMATURIA, UNSPECIFIED (2) CKD (chronic kidney disease) Code(s): N18.9 - CHRONIC KIDNEY DISEASE, UNSPECIFIED Assessment/Plan Current Medications Generic Name Dose Route Start Last Admin Trade Name Freq PRN Reason Stop Dose Admin Acetaminophen 650 mg 01/03/20 20:55 01/04/20 21:38 Tylenol - PO 650 mg Q4H PRN Administration PAIN LEVEL 7 - 10 Amlodipine Besylate 10 mg 01/04/20 10:00 01/07/20 10:27 Norvasc - PO 10 mg DAILY [facility] Administration Aspirin 81 mg 01/05/20 10:00 01/07/20 09:28 Asa - PO Not Given DAILY [facility] Atorvastatin Calcium 40 mg 01/03/20 22:00 01/06/20 21:59 Lipitor - PO 40 mg HS [facility] Administration Carvedilol 25 mg 01/03/20 22:00 01/07/20 10:27 Coreg - PO 25 mg BID [facility] Administration Gabapentin 300 mg 01/03/20 22:00 01/07/20 10:27 Neurontin - PO 300 mg BID [facility] Administration Heparin Sodium (Porcine) 5,000 unit 01/04/20 22:00 01/06/20 22:00 Heparin - SQ 5,000 unit TID [facility] Administration Hydralazine HCl 100 mg 01/03/20 22:00 01/07/20 06:06 Apresoline - PO 100 mg TID [facility] Administration Ertapenem 0.5 gm/ Sodium 50 mls @ 100 mls/hr 01/04/20 10:00 01/07/20 10:27 Chloride IVPB 100 mls/hr Q24H [facility] Administration Sodium Chloride 1,000 mls @ 84 mls/hr 01/05/20 14:26 01/07/20 03:12 1/2 Normal Saline IV 84 mls/hr ASDIR [facility] Administration Insulin Aspart 1 vial 01/03/20 22:00 01/07/20 11:15 Novolog Vial Sliding Scale - SQ Not Given ACHS [facility] Protocol Insulin Detemir 10 units 01/03/20 22:00 01/07/20 06:06 Levemir Vial SQ 5 unit BID@0700,2200 [facility] Administration Impression 1. CKD 2. hx CVA 3. htn 4. DM 5. hypothyroidism 6. left hydro with stent on ct scan 7. UTI 8. thrombocytopenia 9. anemia 10. 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
[2020-01-07] MEDS ORDERED: ONDANSETRON 4 MG/2 ML VIAL IVPUSH PRN ×2 (13:22→14:15)
[2020-01-07] MEDS ORDERED: ACETAMINOPHEN 1000 MG/100 ML VIAL (NON FORMULARY) IVPB ONE ×2 (13:23→14:15)
[2020-01-07] MEDS ORDERED: SODIUM CHLORIDE 1,000 ML IV SCH ×2 (13:30→14:15)
[2020-01-07] MEDS ORDERED: ACETAMINOPHEN INJECTION 100 ML IVPB ONE ×2 (13:45→15:58)
--- NOTE | 2020-01-07 13:50 | OP ---
Operative Note - Note: Operative Date: 01/07/20 Pre-Operative Diagnosis: left hydronephrosis with acute kidney injury/CAP S/P RT with recurrent urethral strictures and bladder neck contracture/left ureteral stricture/urethral stricture Operation: cystoscopy/urethral dilation/laser urethrotomy/laser ablation of bladder neck/left retrograde pyelogram/left uretereteroscopy/left ureteral balloon dilation/left ureteral stent exchange Findings: grade 5/5 left hydronephrosis/high grade bulbous urethral stricture/bladder neck contracture Post-Operative Diagnosis: Same as Pre-op Surgeon: Jacques Loredo Anesthesia: General Specimens Removed: left ureteral stent Drains & Tubes with Location: 01/17 left ureteral stent
[2020-01-07] MEDS ORDERED: ACETAMINOPHEN 325 MG TABLET (FP) PO PRN (14:15)
[2020-01-07] MEDS ORDERED: PT OWN MED DRAWER 7, Y5N ONE (15:09)
[2020-01-07] MEDS: PANTOPRAZOLE 20 MG TABLET PO SCH (17:32)
--- NOTE | 2020-01-07 18:50 | PN ---
Teaching Attending Note Name of Resident: Danielle Qiu ATTENDING PHYSICIAN STATEMENT I saw and evaluated the patient. I reviewed the resident's note and discussed the case with the resident. I agree with the resident's findings and plan as documented. SUBJECTIVE: seen around 10 am No fever or chills. No pain. no N/V OBJECTIVE: NAD CV: RRR,2/6 SM at RUSB and LUSb with radiation to carotid vs carotid bruit Lungs: CTAB Abd: soft, NT, ND , NL BS. 2 small hernias , did not change Ext : No edema or erythema on upper or lower extremities valero bag with yellow urine ASSESSMENT AND PLAN: 69 y/o man with h/o HTN, CKD, Diabetes, CAD, prostate cancer, CVA, nepthrolithiasis, L ureteral stricture with hydronephrosis s/p stent placement and high grade bladder neck contracture, and recurrent ESBL UTis who presented with hematuria and pain and was found to have UTI 1- Complicated UTI/pyelonephritis - cont Ertapenem . - procedure today, stent exchange 2- MARY: due to infection, prerenal azotemia, and chronic obstruction -cont IVF 3- H/o CAD, HTN: cont HZN, and norvasc cont ASA 4- Hemturia : resolved DVT px :resume heparin sq SCDS
--- NOTE | 2020-01-07 20:16 | OP ---
DATE OF OPERATION: 01/07/2020 PREOPERATIVE DIAGNOSIS: Left hydronephrosis with acute renal injury, prostate cancer status post radiation therapy with recurrent urethral stricture and bladder neck with recurrent left ureteral strictures and left hydroureteronephrosis. PROCEDURE: Cystoscopy, urethral dilation, laser urethrotomy, laser ablation of bladder neck, left retrograde pyelogram, left ureteroscopy with left ureteral balloon dilation, and left ureteral stent exchange. ATTENDING: Jacques Loredo M.D. ANESTHESIA: General anesthesia . DESCRIPTION OF PROCEDURE: The patient was brought in the operating room, placed in a supine position on the operating room table. The patient was given anesthesia and preoperative antibiotics. At this point, the patient was placed in the dorsal lithotomy position and prepped and draped in the usual sterile manner. The patient wears diaper secondary to urinary incontinence secondary to a poor functioning external urinary sphincter due to radiation therapy and previous urologic surgery. The patient accepts all risks and benefits. The patient's creatinine had elevated to greater than 4 and has been brought down with medical management to a level of 2.8. The patient is brought in for change of left ureteral stent, which has been in place for greater than 7 months due to the current COVID outbreak. The usual time of the stent is 6 months. The patient was admitted preoperatively due to a worry of urosepsis. The patient is currently on antibiotics and stable. Medical clearance has been obtained. The patient signed an informed consent with all risks and benefits explained to the patient. With the patient in dorsal lithotomy position, cystoscopy was performed after he was prepped and draped in the usual sterile manner. The cystoscopy could only be taken to the level of below the urethral stricture. At this point, Rosangela dilators were utilized to 24 Nigerien and cystoscopy was again performed; however, cystoscopy could not be performed again because of the severe hard stricture in the bulbous urethral area. A laser urethrotomy was then performed utilizing the holmium laser. Incision was made at 12 o'clock position. It must be added that the wire was passed into the bladder prior to the urethral surgery in order to guarantee access to the bladder. Once the urethrotomy had been performed, the prostatic fossa was entered. A high-grade bladder neck contracture was noted. Laser ablation of the bladder neck was performed utilizing the holmium laser. No complication was noted. At this point the bladder was entered. The left ureteral stent was identified and removed. Attempts at passing the wire into the left ureteral orifice was unsuccessful. Ureteroscopy was then performed and with difficulty a wire was passed into the upper tracts. With this accomplished, attempts of passing open end of catheter over the wire were unsuccessful. A navigator dilator was initially used. Once the navigator dilator had been used, a balloon dilator was utilized, then the distal ureter was dilated utilizing the dilator. At this point, ureteroscopy was again performed, and there was no evidence of stone or neoplasm within the distal ureteral stricture. The tissue appeared to be in nature and consistent with radiation damage causing the recurrent ureteral stricture. A retrograde pyelogram which was performed showed a grade 5/5 hydronephrosis. At this point, it was decided to leave the 7 Nigerien 24-cm stent within the left kidney. This was performed utilizing the Seldinger technique. No complications were noted. The patient tolerated the procedure very well. DISPOSITION: To recovery room. Omar [id number]
--- NOTE | 2020-01-07 21:09 | PN ---
Physical Exam: SUBJECTIVE: Patient seen and examined bedside in no acute distress. No events overnight. Also seen after his procedure in afternoon, only complaint is over reflux. OBJECTIVE: Vital Signs Period Temp Pulse Resp BP Sys/Grissom Pulse Ox Last 24 Hr 97.4 F-99.5 F 67-80 11-18 122-162/62-93 95-100 Regulatory Leader used: [id number] GENERAL: The patient is awake, alert, in no acute distress. HEAD: Normal with no signs of trauma. EYES: PERRL, extraocular movements intact, conjunctiva clear. ENT: moist mucous membranes. NECK: no JVD LUNGS: Breath sounds equal, clear to auscultation bilaterally HEART: Regular rate and rhythm, murmur heart right sternal border with radiation to carotids v carotid bruit ABDOMEN: Soft, nontender : valero present, urine today in bag showed no visible blood, light yellow and clear, after surgery valero had blood most likely due to procedure EXTREMITIES: 2+ pulses, warm, well-perfused, no edema Laboratory Results - last 24 hr 01/06/20 01/07/20 01/07/20 21:55 05:56 08:18 WBC 6.9 RBC 3.70 L Hgb 9.6 L Hct 30.0 L MCV 81.1 MCH 26.0 MCHC 32.0 RDW 14.4 Plt Count 136 MPV 11.0 Absolute Neuts (auto) 4.5 Neutrophils % 65.4 Lymphocytes % 21.6 D Monocytes % 7.3 Eosinophils % 4.8 H D Basophils % 0.9 Nucleated RBC % 0 PT with INR INR Sodium Potassium Chloride Carbon Dioxide Anion Gap BUN Creatinine Est GFR (CKD-EPI)AfAm Est GFR (CKD-EPI)NonAf POC Glucometer 135 133 Random Glucose Calcium Phosphorus Magnesium 01/07/20 01/07/20 01/07/20 08:18 08:18 11:13 WBC RBC Hgb Hct MCV MCH MCHC RDW Plt Count MPV Absolute Neuts (auto) Neutrophils % Lymphocytes % Monocytes % Eosinophils % Basophils % Nucleated RBC % PT with INR 10.80 INR 0.92 Sodium 142 Potassium 3.6 Chloride 112 H Carbon Dioxide 21 Anion Gap 9 BUN 36.2 H Creatinine 2.8 H Est GFR (CKD-EPI)AfAm 25.16 Est GFR (CKD-EPI)NonAf 21.71 POC Glucometer 118 Random Glucose 128 H Calcium 8.8 Phosphorus 4.2 Magnesium 2.1 01/07/20 15:49 WBC RBC Hgb Hct MCV MCH MCHC RDW Plt Count MPV Absolute Neuts (auto) Neutrophils % Lymphocytes % Monocytes % Eosinophils % Basophils % Nucleated RBC % PT with INR INR Sodium Potassium Chloride Carbon Dioxide Anion Gap BUN Creatinine Est GFR (CKD-EPI)AfAm Est GFR (CKD-EPI)NonAf POC Glucometer 158 Random Glucose Calcium Phosphorus Magnesium Active Medications Generic Name Dose Route Start Last Admin Trade Name Freq PRN Reason Stop Dose Admin Acetaminophen 650 mg 01/07/20 14:15 01/07/20 18:58 Tylenol - PO 650 mg Q4H PRN Administration PAIN LEVEL 7 - 10 Amlodipine Besylate 10 mg 01/08/20 10:00 Norvasc - PO DAILY [facility] Aspirin 81 mg 01/08/20 10:00 Asa - PO DAILY [facility] Atorvastatin Calcium 40 mg 01/07/20 22:00 Lipitor - PO HS [facility] Carvedilol 25 mg 01/07/20 22:00 Coreg - PO BID [facility] Fentanyl 25 mcg 01/07/20 14:15 Sublimaze Injection - IVPUSH 01/08/20 14:14 [id number] PRN PAIN-PACU ORDER X 4 DOSES ONLY Gabapentin 300 mg 01/07/20 22:00 Neurontin - PO BID [facility] Heparin Sodium (Porcine) 5,000 unit 01/07/20 22:00 Heparin - SQ TID [facility] Hydralazine HCl 100 mg 01/07/20 22:00 Apresoline - PO TID [facility] Ertapenem 0.5 gm/ Sodium 50 mls @ 100 mls/hr 01/08/20 10:00 Chloride IVPB Q24H [facility] Insulin Aspart 1 vial 01/07/20 16:30 01/07/20 16:02 Novolog Vial Sliding Scale - SQ 2 units ACHS [facility] Administration Protocol Insulin Detemir 10 units 01/07/20 22:00 Levemir Vial SQ BID@0700,2200 [facility] Ondansetron HCl 4 mg 01/07/20 14:15 Zofran Injection IVPUSH 01/08/20 14:14 Q6H PRN NAUSEA AND/OR VOMITING Pantoprazole Sodium 20 mg 01/07/20 16:45 01/07/20 17:32 Protonix - PO 20 mg DAILY LINDSEY Administration IMGAING: CT: Shows L renal hydronephrosis and L uretal dilation, bilateral adrenal hyperplasia, diverticulosis coli without evidence of acute diverticuli ASSESSMENT/PLAN: 69 y.o. Macedonian speaking male PMHx of HTN, CKD stage 2, Diabetes, CAD, prostate cancer, CVA, nepthrolithiasis, L ureteral stricture with hydronephrosis presents to the ED with an acute onset of left sided flank pain and hematuria UTI vs Pyelonephritis - Patient has had L sided flank pain and hematuria, UA positive - Previous cultures show ESBL E. Coli so switched meropenem to ertapenem - Ertapenem Day 5 - Avoid NSAIDS & other nephrotoxic drugs - Tylenol 650 Q4 PRN - Nephrology consult placed (Dr. Brunson) continue to monitor MARY - Urology consult (Facundo) patient underwent a left ureteral stent exchange today Procedure findings: grade 5/5 left hydronephrosis/high grade bulbous urethral stricture/bladder neck contracture MARY on top of CKD - BUN improving 36.2 - Cr improving today 2.8 (baseline 2.7) Diabetes - Sliding scale - Levemir 10 BIG - Diabetic diet Hypertension - Coreg 25mg PO BID - Amlodipine 10mg PO daily - Hydralizine 100mg PO TID Anemia - Likely due to stage 2 CKD - continue to monitor Thrombocytopenia - Platelets 128 >> 107 >> 105 - Likely due to stage 2 CKD - continue to trend Bilateral Adrenal hyperpiesia - Incidental finding on CT scan - Would recommend outpatient f/u for management FEN - 1/2 NS at 250 ml/hr - Diabetic diet DVT Prophylaxis - Mechanical SCD'S bilateral - Heparin 5000 TID - ASA 81 MG daily Visit type - Emergency Visit Emergency Visit: Yes ED Registration Date: 01/03/20 Care time: The patient presented to the Emergency Department on the above date and was hospitalized for further evaluation of their emergent condition. - New Patient This patient is new to me today: No - Critical Care Critical Care patient: No - Discharge Referral Referred to [facility] No ATTENDING PHYSICIAN STATEMENT I saw and evaluated the patient. I reviewed the resident's note and discussed the case with the resident. I agree with the resident's findings and plan as documented. SUBJECTIVE: OBJECTIVE: ASSESSMENT AND PLAN:
[2020-01-07] MEDS: ATORVASTATIN CA 40 MG TABLET (FP) PO SCH (21:35)
[2020-01-07] MEDS: HEPARIN NA (PORCINE) 5,000 UNITS/ML 1ML VIAL SQ SCH (21:39)
[2020-01-08] MEDS: hydrALAZINE HCL 50 MG TABLET (FP) PO SCH ×3 (05:50→21:39)
[2020-01-08] MEDS: HEPARIN NA (PORCINE) 5,000 UNITS/ML 1ML VIAL SQ SCH ×3 (05:50→21:39)
[2020-01-08] MEDS: INSULIN SLIDING SCALE (NOVOLOG) 1 VIAL SQ SCH ×4 (06:14→21:41)
[2020-01-08] MEDS: INSULIN (LEVEMIR) 100 UNITS/ML UNITS SQ SCH ×2 (06:59→21:39)
[2020-01-08 07:41] LABS: HEMATOCRIT 27.9 % (35.4-49); MCH 26.4 pg (25.7-33.7); MCHC 32.3 g/dl (32.0-35.9); MEAN CELL VOLUME 81.7 fl (80-96); MEAN PLT VOLUME 10.5 fl (7.5-11.1); PLATELET COUNT 127 K/MM3 (134-434); RBC 3.42 M/mm3 (4.00-5.60); RDW 14.7 % (11.9-15.9); WHITE BLOOD COUNT 8.8 K/mm3 (4.0-10.0)
[2020-01-08 08:01] LABS: BLOOD UREA NITROGEN 42.8 mg/dL (7-18); CALCIUM 8.2 mg/dL (8.5-10.1); CREATININE 3.4 mg/dL (0.55-1.3); MAGNESIUM 2.3 mg/dL (1.8-2.4); PHOSPHOROUS 5.4 mg/dL (2.5-4.9)
--- NOTE | 2020-01-08 09:57 | PATH ---
Surgical Pathology Report Patient Name: BRYSON LAWRENCE Med. Rec. #: [id number] /Age/Gender: 1950 (Age: 69) / M Account: [id number] Location: [address] [place] [address]/[facility] Taken: 01/07/2020 Received: 01/07/2020 Reported: 01/08/2020 Physicians: Jacques Ewing M.D. Specimen(s) Received REMOVED STENT LEFT Clinical History Left ureteral stricture, bladder neck contracture Final Diagnosis REMOVED STENT, LEFT, REMOVAL: CONSISTENT WITH URETERAL STENT. MACROSCOPIC DIAGNOSIS. Electronically Signed Shayna Villavicencio M.D. Gross Description Received fresh labeled "removed stent left," is a 36 cm in length yellow-green, coiled portion of tubing, consistent with a ureteral stent. No soft tissue is present. No sections are submitted, gross only. /01/07/2020 saudi/01/07/2020
[2020-01-08] MEDS ORDERED: PT OWN MED DRAWER 7, Y5N ONE (09:59)
[2020-01-08] MEDS: ASPIRIN 81 MG CHEWABLE TABLETS PO SCH (10:12)
[2020-01-08] MEDS: CARVEDILOL 25 MG TABLET (FP) PO SCH ×2 (10:12→21:39)
[2020-01-08] MEDS: ERTAPENEM SODIUM 0.5 GM in SODIUM CHLORIDE 50 ML IVPB SCH (10:12)
[2020-01-08] MEDS: amLODIPine BESYLATE 10 MG TABLET (FP) PO SCH (10:13)
[2020-01-08] MEDS: PANTOPRAZOLE 20 MG TABLET PO SCH (10:13)
[2020-01-08] MEDS: GABAPENTIN 300 MG CAPSULE PO SCH ×2 (10:13→21:39)
--- NOTE | 2020-01-08 10:15 | PN ---
Teaching Attending Note Name of Resident: Rena Clarke ATTENDING PHYSICIAN STATEMENT I saw and evaluated the patient. I reviewed the resident's note and discussed the case with the resident. I agree with the resident's findings and plan as documented. SUBJECTIVE: Patient is comfortable with no acute distress. low grade fever noted. OBJECTIVE: Vital Signs Temperature 99 F 01/08/20 09:00 Pulse Rate 92 H 01/08/20 09:00 Respiratory Rate 17 01/08/20 09:00 Blood Pressure 145/71 01/08/20 09:00 O2 Sat by Pulse Oximetry (%) 97 01/07/20 21:00 PE: per resident's note CBCD WBC 8.8 K/mm3 (4.0-10.0) 01/08/20 07:07 RBC 3.42 M/mm3 (4.00-5.60) L 01/08/20 07:07 Hgb 9.0 GM/dL (11.7-16.9) L 01/08/20 07:07 Hct 27.9 % (35.4-49) L 01/08/20 07:07 MCV 81.7 fl (80-96) 01/08/20 07:07 MCHC 32.3 g/dl (32.0-35.9) 01/08/20 07:07 RDW 14.7 % (11.9-15.9) 01/08/20 07:07 Plt Count 127 K/MM3 (134-434) L 01/08/20 07:07 MPV 10.5 fl (7.5-11.1) 01/08/20 07:07 CMP Sodium 141 mmol/L (136-145) 01/08/20 07:07 Potassium 4.0 mmol/L (3.5-5.1) 01/08/20 07:07 Chloride 111 mmol/L (98-107) H 01/08/20 07:07 Carbon Dioxide 22 mmol/L (21-32) 01/08/20 07:07 Anion Gap 8 MMOL/L (8-16) 01/08/20 07:07 BUN 42.8 mg/dL (7-18) H 01/08/20 07:07 Creatinine 3.4 mg/dL (0.55-1.3) H 01/08/20 07:07 Random Glucose 118 mg/dL (74-106) H 01/08/20 07:07 Calcium 8.2 mg/dL (8.5-10.1) L 01/08/20 07:07 Total Bilirubin 0.3 mg/dL (0.2-1) 01/05/20 07:10 AST 9 U/L (15-37) L 01/05/20 07:10 ALT 16 U/L (13-61) 01/05/20 07:10 Alkaline Phosphatase 98 U/L (45-117) 01/05/20 07:10 Total Protein 6.3 g/dl (6.4-8.2) L 01/05/20 07:10 Albumin 2.9 g/dl (3.4-5.0) L 01/05/20 07:10 Current Medications Generic Name Dose Route Start Last Admin Trade Name Freq PRN Reason Stop Dose Admin Acetaminophen 650 mg 01/07/20 14:15 01/07/20 18:58 Tylenol - PO 650 mg Q4H PRN Administration PAIN LEVEL 7 - 10 Amlodipine Besylate 10 mg 01/08/20 10:00 01/08/20 10:13 Norvasc - PO 10 mg DAILY LIDNSEY Administration Aspirin 81 mg 01/08/20 10:00 01/08/20 10:12 Asa - PO 81 mg DAILY LINDSEY Administration Atorvastatin Calcium 40 mg 01/07/20 22:00 01/07/20 21:35 Lipitor - PO 40 mg HS LINDSEY Administration Carvedilol 25 mg 01/07/20 22:00 01/08/20 10:12 Coreg - PO 25 mg BID LINDSEY Administration Fentanyl 25 mcg 01/07/20 14:15 Sublimaze Injection - IVPUSH 01/08/20 14:14 [id number] PRN PAIN-PACU ORDER X 4 DOSES ONLY Gabapentin 300 mg 01/07/20 22:00 01/08/20 10:13 Neurontin - PO 300 mg BID LINDSEY Administration Heparin Sodium (Porcine) 5,000 unit 01/07/20 22:00 01/08/20 05:50 Heparin - SQ 5,000 unit TID LINDSEY Administration Hydralazine HCl 100 mg 01/07/20 22:00 01/08/20 05:50 Apresoline - PO 100 mg TID LINDSEY Administration Ertapenem 0.5 gm/ Sodium 50 mls @ 100 mls/hr 01/08/20 10:00 01/08/20 10:12 Chloride IVPB 100 mls/hr Q24H LINDSEY Administration Insulin Aspart 1 vial 01/07/20 16:30 01/08/20 06:14 Novolog Vial Sliding Scale - SQ Not Given ACHS [facility] Protocol Insulin Detemir 10 units 01/07/20 22:00 01/08/20 06:59 Levemir Vial SQ 10 unit BID@0700,2200 LINDSEY Administration Ondansetron HCl 4 mg 01/07/20 14:15 Zofran Injection IVPUSH 01/08/20 14:14 Q6H PRN NAUSEA AND/OR VOMITING Pantoprazole Sodium 20 mg 01/07/20 16:45 01/08/20 10:13 Protonix - PO 20 mg DAILY LINDSEY Administration Home Medications Medication Instructions Recorded Amlodipine Besylate [Norvasc -] 10 mg PO DAILY 05/11/19 Hydralazine HCl 100 mg PO TID 05/11/19 Labetalol HCl [Normodyne -] 300 mg PO BID 05/11/19 Albuterol Sulfate Inhaler - 1 - 2 inh PO Q4H 05/14/19 [Ventolin HFA Inhaler -] Bromfenac Sodium [Prolensa] 3 ml OD DAILY 05/14/19 Furosemide [Lasix -] 40 mg PO DAILY tablet 05/14/19 Insulin (Levemir) [Levemir Vial] 35 units SQ ONCE 05/14/19 Insulin Sliding Scale [Novolog 0 units SQ BID 05/14/19 Vial Sliding Scale -] Prednisolone 1% Ophthalmic [Pred 1 drop OD QID 05/14/19 Forte 1% -] Atorvastatin Calcium [Lipitor] 10 mg PO DAILY 01/04/20 Gabapentin 400 mg PO BID 01/04/20 Aspirin [Aspirin EC] 81 mg PO DAILY 01/05/20 Microbiology 01/03/20 20:20 Blood - Peripheral Venous Blood Culture - Preliminary NO GROWTH OBTAINED AFTER 96 HOURS, INCUBATION TO CONTINUE FOR 1 DAYS. 01/03/20 20:20 Blood - Peripheral Venous Blood Culture - Preliminary NO GROWTH OBTAINED AFTER 96 HOURS, INCUBATION TO CONTINUE FOR 1 DAYS. 01/04/20 20:15 Urine - Urine - Catheterized Urine Culture - Final NO GROWTH OBTAINED 01/03/20 11:35 Urine - Urine Preciado Urine Culture - Final Contaminated: Please Repeat ASSESSMENT AND PLAN: 69 y/o man with h/o HTN, CKD, Diabetes, CAD, prostate cancer, CVA, nepthrolith iasis, L ureteral stricture with hydronephrosis s/p stent placement and high grade bladder neck contracture, and recurrent ESBL UTis who presented with hematuria and pain and was found to have UTI # Complicated UTI/pyelonephritis: on Ertapenem continue s/p left ureteral stent exchange by dr camar[place] # MARY: trend, 3.4 today due to infection, prerenal azotemia, and chronic obstruction ;cont IVF #H/x CAD, HTN: cont Htz, and norvasc ;cont ASA # Hemturia : resolving DVT px :resume heparin sq SCDS
[2020-01-08] MEDS ORDERED: SODIUM CHLORIDE 1,000 ML IV SCH (11:45)
--- NOTE | 2020-01-08 13:54 | PN ---
Progress Note, Physician History of Present Illness: still having hematuria has stent removed foleys still present - Current Medication List Current Medications: Active Medications Acetaminophen (Tylenol -) 650 mg PO Q4H PRN PRN Reason: PAIN LEVEL 7 - 10 Last Admin: 01/07/20 18:58 Dose: 650 mg Documented by: Amlodipine Besylate (Norvasc -) 10 mg PO DAILY [facility] Last Admin: 01/08/20 10:13 Dose: 10 mg Documented by: Aspirin (Asa -) 81 mg PO DAILY [facility] Last Admin: 01/08/20 10:12 Dose: 81 mg Documented by: Atorvastatin Calcium (Lipitor -) 40 mg PO HS [facility] Last Admin: 01/07/20 21:35 Dose: 40 mg Documented by: Carvedilol (Coreg -) 25 mg PO BID [facility] Last Admin: 01/08/20 10:12 Dose: 25 mg Documented by: Fentanyl (Sublimaze Injection -) 25 mcg IVPUSH [id number] PRN PRN Reason: PAIN-PACU ORDER X 4 DOSES ONLY Stop: 01/08/20 14:14 Gabapentin (Neurontin -) 300 mg PO BID [facility] Last Admin: 01/08/20 10:13 Dose: 300 mg Documented by: Heparin Sodium (Porcine) (Heparin -) 5,000 unit SQ TID [facility] Last Admin: 01/08/20 05:50 Dose: 5,000 unit Documented by: Hydralazine HCl (Apresoline -) 100 mg PO TID [facility] Last Admin: 01/08/20 05:50 Dose: 100 mg Documented by: Ertapenem 0.5 gm/ Sodium (Chloride) 50 mls @ 100 mls/hr IVPB Q24H [facility] Last Admin: 01/08/20 10:12 Dose: 100 mls/hr Documented by: Sodium Chloride (Normal Saline -) 1,000 mls @ 100 mls/hr IV ASDIR [facility] Stop: 01/08/20 21:44 Last Admin: 01/08/20 12:14 Dose: 100 mls/hr Documented by: Insulin Aspart (Novolog Vial Sliding Scale -) 1 vial SQ ACHS [facility]; Protocol Last Admin: 01/08/20 11:12 Dose: 4 units Documented by: Insulin Detemir (Levemir Vial) 10 units SQ BID@0700,2200 [facility] Last Admin: 07/14/20 06:59 Dose: 10 unit Documented by: Ondansetron HCl (Zofran Injection) 4 mg IVPUSH Q6H PRN PRN Reason: NAUSEA AND/OR VOMITING Stop: 01/08/20 14:14 Pantoprazole Sodium (Protonix -) 20 mg PO DAILY LINDSEY Last Admin: 01/08/20 10:13 Dose: 20 mg Documented by: - Objective Vital Signs: Vital Signs Temperature 99 F 01/08/20 09:00 Pulse Rate 92 H 01/08/20 09:00 Respiratory Rate 17 01/08/20 09:00 Blood Pressure 145/71 01/08/20 09:00 O2 Sat by Pulse Oximetry (%) 97 01/08/20 09:00 Constitutional: Yes: No Distress, Calm Cardiovascular: Yes: S1, S2 Respiratory: Yes: Regular, CTA Bilaterally Gastrointestinal: Yes: Normal Bowel Sounds, Soft Genitourinary: Yes: Preciado Present Musculoskeletal: Yes: WNL Extremities: Yes: WNL Neurological: Yes: Alert, Oriented Psychiatric: Yes: Alert, Oriented Labs: CBC, BMP 01/08/20 07:07 01/08/20 07:07 INR, PTT INR 0.92 (0.83-1.09) 01/07/20 08:18 Assessment/Plan Problem List - Problems (1) Hematuria Code(s): R31.9 - HEMATURIA, UNSPECIFIED (2) CKD (chronic kidney disease) Code(s): N18.9 - CHRONIC KIDNEY DISEASE, UNSPECIFIED uti hematuria plan patient had low grade temp ct abx for now
--- NOTE | 2020-01-08 15:21 | PN ---
Physical Exam: SUBJECTIVE: Patient seen and examined bedside. In no acute distress. Only complaint is of pain in urethra from valero. No events overnight. OBJECTIVE: Vital Signs Period Temp Pulse Resp BP Sys/Grissom Pulse Ox Last 24 Hr 97.4 F-99 F 73-92 11-18 122-151/62-92 95-97 Line Decorator used: [id number] GENERAL: The patient is awake, alert, in no acute distress. HEAD: Normal with no signs of trauma. EYES: PERRL, conjunctiva clear. ENT: moist mucous membranes. NECK: no JVD LUNGS: Breath sounds equal, clear to auscultation bilaterally HEART: Regular rate and rhythm, murmur heart right sternal border with radiation to carotids v carotid bruit ABDOMEN: Soft, nontender : valero present, with bright red urine in bag. EXTREMITIES: warm, well-perfused, no edema Laboratory Results - last 24 hr 01/07/20 01/07/20 01/08/20 15:49 21:08 06:13 WBC RBC Hgb Hct MCV MCH MCHC RDW Plt Count MPV Sodium Potassium Chloride Carbon Dioxide Anion Gap BUN Creatinine Est GFR (CKD-EPI)AfAm Est GFR (CKD-EPI)NonAf POC Glucometer 158 230 119 Random Glucose Calcium Phosphorus Magnesium 01/08/20 01/08/20 01/08/20 07:07 07:07 11:07 WBC 8.8 RBC 3.42 L Hgb 9.0 L Hct 27.9 L MCV 81.7 MCH 26.4 MCHC 32.3 RDW 14.7 Plt Count 127 L MPV 10.5 Sodium 141 Potassium 4.0 Chloride 111 H Carbon Dioxide 22 Anion Gap 8 BUN 42.8 H Creatinine 3.4 H Est GFR (CKD-EPI)AfAm 19.90 Est GFR (CKD-EPI)NonAf 17.17 POC Glucometer 204 Random Glucose 118 H Calcium 8.2 L Phosphorus 5.4 H Magnesium 2.3 Active Medications Generic Name Dose Route Start Last Admin Trade Name Freq PRN Reason Stop Dose Admin Acetaminophen 650 mg 01/07/20 14:15 01/07/20 18:58 Tylenol - PO 650 mg Q4H PRN Administration PAIN LEVEL 7 - 10 Amlodipine Besylate 10 mg 01/08/20 10:00 01/08/20 10:13 Norvasc - PO 10 mg DAILY LINDSEY Administration Aspirin 81 mg 01/08/20 10:00 01/08/20 10:12 Asa - PO 81 mg DAILY LINDSEY Administration Atorvastatin Calcium 40 mg 01/07/20 22:00 01/07/20 21:35 Lipitor - PO 40 mg HS LINDSEY Administration Carvedilol 25 mg 01/07/20 22:00 01/08/20 10:12 Coreg - PO 25 mg BID LINDSEY Administration Gabapentin 300 mg 01/07/20 22:00 01/08/20 10:13 Neurontin - PO 300 mg BID LINDSEY Administration Heparin Sodium (Porcine) 5,000 unit 01/07/20 22:00 01/08/20 14:14 Heparin - SQ 5,000 unit TID LINDSEY Administration Hydralazine HCl 100 mg 01/07/20 22:00 01/08/20 14:14 Apresoline - PO 100 mg TID LINDSEY Administration Ertapenem 0.5 gm/ Sodium 50 mls @ 100 mls/hr 01/08/20 10:00 01/08/20 10:12 Chloride IVPB 100 mls/hr Q24H LINDSEY Administration Sodium Chloride 1,000 mls @ 100 mls/hr 01/08/20 11:45 01/08/20 12:14 Normal Saline - IV 01/08/20 21:44 100 mls/hr ASDIR LINDSEY Administration Insulin Aspart 1 vial 01/07/20 16:30 01/08/20 11:12 Novolog Vial Sliding Scale - SQ 4 units ACHS LINDSEY Administration Protocol Insulin Detemir 10 units 01/07/20 22:00 01/08/20 06:59 Levemir Vial SQ 10 unit BID@0700,2200 LINDSEY Administration Pantoprazole Sodium 20 mg 01/07/20 16:45 01/08/20 10:13 Protonix - PO 20 mg DAILY LINDSEY Administration IMGAING: CT: Shows L renal hydronephrosis and L uretal dilation, bilateral adrenal hyperplasia, diverticulosis coli without evidence of acute diverticuli ASSESSMENT/PLAN: 69 y.o. Armenian speaking male PMHx of HTN, CKD stage 2, Diabetes, CAD, prostate cancer, CVA, nepthrolithiasis, L ureteral stricture with hydronephrosis presents to the ED with an acute onset of left sided flank pain and hematuria UTI vs Pyelonephritis - Patient has had L sided flank pain and hematuria, UA positive - Previous cultures show ESBL E. Coli so switched meropenem to ertapenem (Dr. Garrido consulted) - Ertapenem Day 6 - Avoid NSAIDS & other nephrotoxic drugs - Tylenol 650 Q4 PRN - Nephrology consult placed (Dr. Brunson) continue to monitor MARY switched to 1/2 NS today - Urology consult (Facundo) patient underwent a left ureteral stent exchange 01/06 Procedure findings: grade 5/5 left hydronephrosis/high grade bulbous urethral stricture/bladder neck contracture patient will need to go home with valero for 1 week and f/u outpatient MARY on top of CKD - BUN/Cr increased today, hematuria present - both most likely from surgery - IV 1/2 NS given - repeat in BMP in AM - baseline cr 2.7 Diabetes - Sliding scale - Levemir 10 BIG - Diabetic diet Hypertension - Coreg 25mg PO BID - Amlodipine 10mg PO daily - Hydralizine 100mg PO TID Anemia - Likely due to stage 2 CKD - continue to monitor Thrombocytopenia - Platelets 128 >> 107 >> 105 - Likely due to stage 2 CKD - continue to trend Bilateral Adrenal hyperpiesia - Incidental finding on CT scan - Would recommend outpatient f/u for management FEN - 1/2 NS at 250 ml/hr - Diabetic diet DVT Prophylaxis - Mechanical SCD'S bilateral - Heparin 5000 TID - ASA 81 MG daily Visit type - Emergency Visit Emergency Visit: Yes ED Registration Date: 01/03/20 Care time: The patient presented to the Emergency Department on the above date and was hospitalized for further evaluation of their emergent condition. - New Patient This patient is new to me today: No - Critical Care Critical Care patient: No - Discharge Referral Referred to [facility] No ATTENDING PHYSICIAN STATEMENT I saw and evaluated the patient. I reviewed the resident's note and discussed the case with the resident. I agree with the resident's findings and plan as documented. SUBJECTIVE: OBJECTIVE: ASSESSMENT AND PLAN:
--- NOTE | 2020-01-08 16:21 | PN ---
Progress Note, Physician History of Present Illness: Pt seen and examined at bedside. He is awake and alert. He had the cysto. He has a valero and dies have mild hematuria. - Current Medication List Current Medications: Active Medications Acetaminophen (Tylenol -) 650 mg PO Q4H PRN PRN Reason: PAIN LEVEL 7 - 10 Last Admin: 01/07/20 18:58 Dose: 650 mg Documented by: Amlodipine Besylate (Norvasc -) 10 mg PO DAILY [facility] Last Admin: 01/08/20 10:13 Dose: 10 mg Documented by: Aspirin (Asa -) 81 mg PO DAILY [facility] Last Admin: 01/08/20 10:12 Dose: 81 mg Documented by: Atorvastatin Calcium (Lipitor -) 40 mg PO HS [facility] Last Admin: 01/07/20 21:35 Dose: 40 mg Documented by: Carvedilol (Coreg -) 25 mg PO BID [facility] Last Admin: 01/08/20 10:12 Dose: 25 mg Documented by: Gabapentin (Neurontin -) 300 mg PO BID [facility] Last Admin: 01/08/20 10:13 Dose: 300 mg Documented by: Heparin Sodium (Porcine) (Heparin -) 5,000 unit SQ TID [facility] Last Admin: 01/08/20 14:14 Dose: 5,000 unit Documented by: Hydralazine HCl (Apresoline -) 100 mg PO TID [facility] Last Admin: 01/08/20 14:14 Dose: 100 mg Documented by: Ertapenem 0.5 gm/ Sodium (Chloride) 50 mls @ 100 mls/hr IVPB Q24H [facility] Last Admin: 01/08/20 10:12 Dose: 100 mls/hr Documented by: Sodium Chloride (Normal Saline -) 1,000 mls @ 100 mls/hr IV ASDIR [facility] Stop: 01/08/20 21:44 Last Admin: 01/08/20 12:14 Dose: 100 mls/hr Documented by: Insulin Aspart (Novolog Vial Sliding Scale -) 1 vial SQ ACHS [facility]; Protocol Last Admin: 01/08/20 11:12 Dose: 4 units Documented by: Insulin Detemir (Levemir Vial) 10 units SQ BID@0700,2200 [facility] Last Admin: 01/08/20 06:59 Dose: 10 unit Documented by: Pantoprazole Sodium (Protonix -) 20 mg PO DAILY [facility] Last Admin: 01/08/20 10:13 Dose: 20 mg Documented by: - Objective Vital Signs: Vital Signs Temperature 98.2 F 01/08/20 13:00 Pulse Rate 78 01/08/20 13:00 Respiratory Rate 18 01/08/20 13:00 Blood Pressure 145/81 01/08/20 13:00 O2 Sat by Pulse Oximetry (%) 96 01/08/20 13:00 Constitutional: Yes: Calm Eyes: Yes: Conjunctiva Clear HENT: Yes: Atraumatic Neck: Yes: Supple Cardiovascular: Yes: S1, S2 Respiratory: Yes: CTA Bilaterally Gastrointestinal: Yes: Normal Bowel Sounds, Soft Genitourinary: Yes: Valero Present, Hematuria Musculoskeletal: Yes: Muscle Weakness Edema: No Neurological: Yes: Oriented Psychiatric: Yes: Oriented Labs: CBC, BMP 01/08/20 07:07 01/08/20 07:07 INR, PTT INR 0.92 (0.83-1.09) 01/07/20 08:18 Problem List - Problems (1) Hematuria Code(s): R31.9 - HEMATURIA, UNSPECIFIED (2) CKD (chronic kidney disease) Code(s): N18.9 - CHRONIC KIDNEY DISEASE, UNSPECIFIED Assessment/Plan Current Medications Generic Name Dose Route Start Last Admin Trade Name Taiwoq PRN Reason Stop Dose Admin Acetaminophen 650 mg 01/07/20 14:15 01/07/20 18:58 Tylenol - PO 650 mg Q4H PRN Administration PAIN LEVEL 7 - 10 Amlodipine Besylate 10 mg 01/08/20 10:00 01/08/20 10:13 Norvasc - PO 10 mg DAILY [facility] Administration Aspirin 81 mg 01/08/20 10:00 01/08/20 10:12 Asa - PO 81 mg DAILY [facility] Administration Atorvastatin Calcium 40 mg 01/07/20 22:00 01/07/20 21:35 Lipitor - PO 40 mg HS [facility] Administration Carvedilol 25 mg 01/07/20 22:00 01/08/20 10:12 Coreg - PO 25 mg BID [facility] Administration Gabapentin 300 mg 01/07/20 22:00 01/08/20 10:13 Neurontin - PO 300 mg BID [facility] Administration Heparin Sodium (Porcine) 5,000 unit 01/07/20 22:00 01/08/20 14:14 Heparin - SQ 5,000 unit TID [facility] Administration Hydralazine HCl 100 mg 01/07/20 22:00 01/08/20 14:14 Apresoline - PO 100 mg TID [facility] Administration Ertapenem 0.5 gm/ Sodium 50 mls @ 100 mls/hr 01/08/20 10:00 01/08/20 10:12 Chloride IVPB 100 mls/hr Q24H [facility] Administration Sodium Chloride 1,000 mls @ 100 mls/hr 01/08/20 11:45 01/08/20 12:14 Normal Saline - IV 01/08/20 21:44 100 mls/hr ASDIR [facility] Administration Insulin Aspart 1 vial 01/07/20 16:30 01/08/20 11:12 Novolog Vial Sliding Scale - SQ 4 units ACHS [facility] Administration Protocol Insulin Detemir 10 units 01/07/20 22:00 01/08/20 06:59 Levemir Vial SQ 10 unit BID@0700,2200 [facility] Administration Pantoprazole Sodium 20 mg 01/07/20 16:45 01/08/20 10:13 Protonix - PO 20 mg DAILY [facility] Administration Impression 1. CKD 2. hx CVA 3. htn 4. DM 5. hypothyroidism 6. left hydro with stent on ct scan 7. UTI 8. thrombocytopenia 9. anemia 10. 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
[2020-01-08] MEDS: SODIUM CHLORIDE 0.45% 1,000 ML IV SCH (16:41)
[2020-01-08] MEDS ORDERED: SENNOSIDES 8.6MG TABLET (FP) PO ONE (21:00)
[2020-01-08] MEDS ORDERED: DOCUSATE SODIUM 100 MG CAPSULE (FP) PO ONE (21:00)
[2020-01-08] MEDS: ATORVASTATIN CA 40 MG TABLET (FP) PO SCH (21:39)
[2020-01-09] MEDS: hydrALAZINE HCL 50 MG TABLET (FP) PO SCH ×3 (06:23→21:16)
[2020-01-09] MEDS: INSULIN (LEVEMIR) 100 UNITS/ML UNITS SQ SCH ×2 (06:24→21:16)
[2020-01-09] MEDS: HEPARIN NA (PORCINE) 5,000 UNITS/ML 1ML VIAL SQ SCH ×3 (06:24→21:16)
[2020-01-09] MEDS: INSULIN SLIDING SCALE (NOVOLOG) 1 VIAL SQ SCH ×4 (06:24→21:17)
[2020-01-09] MEDS: SODIUM CHLORIDE 0.45% 1,000 ML IV SCH ×2 (06:26→13:56)
[2020-01-09 08:13] LABS: HEMOGLOBIN 8.7 GM/dL (11.7-16.9); MCH 26.1 pg (25.7-33.7); MCHC 32.1 g/dl (32.0-35.9); MEAN CELL VOLUME 81.3 fl (80-96); MEAN PLT VOLUME 10.5 fl (7.5-11.1); PLATELET COUNT 126 K/MM3 (134-434); RBC 3.32 M/mm3 (4.00-5.60); RDW 14.6 % (11.9-15.9); WHITE BLOOD COUNT 7.7 K/mm3 (4.0-10.0)
[2020-01-09 08:33] LABS: CALCIUM 8.1 mg/dL (8.5-10.1); CREATININE 3.1 mg/dL (0.55-1.3); MAGNESIUM 2.2 mg/dL (1.8-2.4); POTASSIUM 3.9 mmol/L (3.5-5.1)
[2020-01-09] MEDS: ERTAPENEM SODIUM 0.5 GM in SODIUM CHLORIDE 50 ML IVPB SCH (09:44)
[2020-01-09] MEDS: CARVEDILOL 25 MG TABLET (FP) PO SCH ×2 (09:44→21:16)
[2020-01-09] MEDS: ASPIRIN 81 MG CHEWABLE TABLETS PO SCH (09:44)
[2020-01-09] MEDS: GABAPENTIN 300 MG CAPSULE PO SCH ×2 (09:44→21:16)
[2020-01-09] MEDS: amLODIPine BESYLATE 10 MG TABLET (FP) PO SCH (09:44)
[2020-01-09] MEDS: PANTOPRAZOLE 20 MG TABLET PO SCH (09:46)
--- NOTE | 2020-01-09 10:21 | PN ---
Teaching Attending Note Name of Resident: Rena Clarke ATTENDING PHYSICIAN STATEMENT I saw and evaluated the patient. I reviewed the resident's note and discussed the case with the resident. I agree with the resident's findings and plan as documented. SUBJECTIVE: Patient continues to have hematuria, less than yesterday OBJECTIVE: Vital Signs Temperature 99 F 01/09/20 09:00 Pulse Rate 91 H 01/09/20 09:00 Respiratory Rate 18 01/09/20 09:00 Blood Pressure 145/72 01/09/20 09:00 O2 Sat by Pulse Oximetry (%) 96 01/09/20 09:00 PE: per resident's note CBCD WBC 7.7 K/mm3 (4.0-10.0) 01/09/20 07:35 RBC 3.32 M/mm3 (4.00-5.60) L 01/09/20 07:35 Hgb 8.7 GM/dL (11.7-16.9) L 01/09/20 07:35 Hct 27.0 % (35.4-49) L 01/09/20 07:35 MCV 81.3 fl (80-96) 01/09/20 07:35 MCHC 32.1 g/dl (32.0-35.9) 01/09/20 07:35 RDW 14.6 % (11.9-15.9) 01/09/20 07:35 Plt Count 126 K/MM3 (134-434) L 01/09/20 07:35 MPV 10.5 fl (7.5-11.1) 01/09/20 07:35 CMP Sodium 144 mmol/L (136-145) 01/09/20 07:35 Potassium 3.9 mmol/L (3.5-5.1) 01/09/20 07:35 Chloride 114 mmol/L (98-107) H 01/09/20 07:35 Carbon Dioxide 21 mmol/L (21-32) 01/09/20 07:35 Anion Gap 9 MMOL/L (8-16) 01/09/20 07:35 BUN 43.0 mg/dL (7-18) H 01/09/20 07:35 Creatinine 3.1 mg/dL (0.55-1.3) H 01/09/20 07:35 Random Glucose 172 mg/dL (74-106) H 01/09/20 07:35 Calcium 8.1 mg/dL (8.5-10.1) L 01/09/20 07:35 Total Bilirubin 0.3 mg/dL (0.2-1) 01/05/20 07:10 AST 9 U/L (15-37) L 01/05/20 07:10 ALT 16 U/L (13-61) 01/05/20 07:10 Alkaline Phosphatase 98 U/L (45-117) 01/05/20 07:10 Total Protein 6.3 g/dl (6.4-8.2) L 01/05/20 07:10 Albumin 2.9 g/dl (3.4-5.0) L 01/05/20 07:10 Current Medications Generic Name Dose Route Start Last Admin Trade Name Freq PRN Reason Stop Dose Admin Acetaminophen 650 mg 01/07/20 14:15 01/07/20 18:58 Tylenol - PO 650 mg Q4H PRN Administration PAIN LEVEL 7 - 10 Amlodipine Besylate 10 mg 01/08/20 10:00 01/09/20 09:44 Norvasc - PO 10 mg DAILY [facility] Administration Aspirin 81 mg 01/08/20 10:00 01/09/20 09:44 Asa - PO 81 mg DAILY [facility] Administration Atorvastatin Calcium 40 mg 01/07/20 22:00 01/08/20 21:39 Lipitor - PO 40 mg HS [facility] Administration Carvedilol 25 mg 01/07/20 22:00 01/09/20 09:44 Coreg - PO 25 mg BID [facility] Administration Gabapentin 300 mg 01/07/20 22:00 01/09/20 09:44 Neurontin - PO 300 mg BID [facility] Administration Heparin Sodium (Porcine) 5,000 unit 01/07/20 22:00 01/09/20 06:24 Heparin - SQ 5,000 unit TID [facility] Administration Hydralazine HCl 100 mg 01/07/20 22:00 01/09/20 06:23 Apresoline - PO 100 mg TID [facility] Administration Ertapenem 0.5 gm/ Sodium 50 mls @ 100 mls/hr 01/08/20 10:00 01/09/20 09:44 Chloride IVPB 100 mls/hr Q24H [facility] Administration Sodium Chloride 1,000 mls @ 75 mls/hr 01/08/20 16:30 01/09/20 06:26 1/2 Normal Saline IV 75 mls/hr ASDIR [facility] Administration Insulin Aspart 1 vial 01/07/20 16:30 01/09/20 06:24 Novolog Vial Sliding Scale - SQ 4 units ACHS [facility] Administration Protocol Insulin Detemir 10 units 01/07/20 22:00 01/09/20 06:24 Levemir Vial SQ 10 unit BID@0700,2200 [facility] Administration Pantoprazole Sodium 20 mg 01/07/20 16:45 01/09/20 09:46 Protonix - PO 20 mg DAILY [facility] Administration Home Medications Medication Instructions Recorded Amlodipine Besylate [Norvasc -] 10 mg PO DAILY 05/11/19 Hydralazine HCl 100 mg PO TID 05/11/19 Labetalol HCl [Normodyne -] 300 mg PO BID 05/11/19 Albuterol Sulfate Inhaler - 1 - 2 inh PO Q4H 05/14/19 [Ventolin HFA Inhaler -] Bromfenac Sodium [Prolensa] 3 ml OD DAILY 05/14/19 Furosemide [Lasix -] 40 mg PO DAILY tablet 05/14/19 Insulin (Levemir) [Levemir Vial] 35 units SQ ONCE 05/14/19 Insulin Sliding Scale [Novolog 0 units SQ BID 05/14/19 Vial Sliding Scale -] Prednisolone 1% Ophthalmic [Pred 1 drop OD QID 05/14/19 Forte 1% -] Atorvastatin Calcium [Lipitor] 10 mg PO DAILY 01/04/20 Gabapentin 400 mg PO BID 01/04/20 Aspirin [Aspirin EC] 81 mg PO DAILY 01/05/20 Microbiology 01/03/20 20:20 Blood - Peripheral Venous Blood Culture - Final NO GROWTH AFTER 5 DAYS INCUBATION 01/03/20 20:20 Blood - Peripheral Venous Blood Culture - Final NO GROWTH AFTER 5 DAYS INCUBATION 01/04/20 20:15 Urine - Urine - Catheterized Urine Culture - Final NO GROWTH OBTAINED 01/03/20 11:35 Urine - Urine Preciado Urine Culture - Final Contaminated: Please Repeat ASSESSMENT AND PLAN: 69 y/o man with h/o HTN, CKD, Diabetes, CAD, prostate cancer, CVA, nepthrolithiasis, L ureteral stricture with hydronephrosis s/p stent placement and high grade bladder neck contracture, and recurrent ESBL UTis who presented with hematuria and pain and was found to have UTI # Complicated UTI/pyelonephritis: on Ertapenem continue s/p left ureteral stent exchange by dr Corcoran on 01/08/2020, continues to have mild hematuria , will monitor. # MARY: trend, 3.4-->3.1 today due to infection, and chronic obstruction ;cont IVF #H/x CAD, HTN: cont Htz, and norvasc ;cont ASA # Hematuria : resolving DVT px :resume heparin sq possible dc in am
[2020-01-09] MEDS ORDERED: INSULIN (NOVOLOG) ASPART 100 UNITS/ML 10ML VIAL ONE (11:36)
--- NOTE | 2020-01-09 12:17 | PN ---
Progress Note, Physician History of Present Illness: Pt seen and examined at bedside. He is awake and alert. He denies shortness of breath. - Current Medication List Current Medications: Active Medications Acetaminophen (Tylenol -) 650 mg PO Q4H PRN PRN Reason: PAIN LEVEL 7 - 10 Last Admin: 01/07/20 18:58 Dose: 650 mg Documented by: Amlodipine Besylate (Norvasc -) 10 mg PO DAILY [facility] Last Admin: 01/09/20 09:44 Dose: 10 mg Documented by: Aspirin (Asa -) 81 mg PO DAILY [facility] Last Admin: 01/09/20 09:44 Dose: 81 mg Documented by: Atorvastatin Calcium (Lipitor -) 40 mg PO HS [facility] Last Admin: 01/08/20 21:39 Dose: 40 mg Documented by: Carvedilol (Coreg -) 25 mg PO BID [facility] Last Admin: 01/09/20 09:44 Dose: 25 mg Documented by: Gabapentin (Neurontin -) 300 mg PO BID [facility] Last Admin: 01/09/20 09:44 Dose: 300 mg Documented by: Heparin Sodium (Porcine) (Heparin -) 5,000 unit SQ TID [facility] Last Admin: 01/09/20 06:24 Dose: 5,000 unit Documented by: Hydralazine HCl (Apresoline -) 100 mg PO TID [facility] Last Admin: 01/09/20 06:23 Dose: 100 mg Documented by: Ertapenem 0.5 gm/ Sodium (Chloride) 50 mls @ 100 mls/hr IVPB Q24H [facility] Last Admin: 01/09/20 09:44 Dose: 100 mls/hr Documented by: Sodium Chloride (1/2 Normal Saline) 1,000 mls @ 75 mls/hr IV ASDIR [facility] Last Admin: 01/09/20 06:26 Dose: 75 mls/hr Documented by: Insulin Aspart (Novolog Vial Sliding Scale -) 1 vial SQ ACHS [facility]; Protocol Last Admin: 01/09/20 11:38 Dose: 2 units Documented by: Insulin Detemir (Levemir Vial) 10 units SQ BID@0700,2200 [facility] Last Admin: 01/09/20 06:24 Dose: 10 unit Documented by: Pantoprazole Sodium (Protonix -) 20 mg PO DAILY [facility] Last Admin: 01/09/20 09:46 Dose: 20 mg Documented by: - Objective Vital Signs: Vital Signs Temperature 99 F 01/09/20 09:00 Pulse Rate 91 H 01/09/20 09:00 Respiratory Rate 25 H 01/09/20 09:00 Blood Pressure 145/72 01/09/20 09:00 O2 Sat by Pulse Oximetry (%) 96 01/09/20 10:00 Constitutional: Yes: Calm Eyes: Yes: Conjunctiva Clear HENT: Yes: Atraumatic Neck: Yes: Supple Cardiovascular: Yes: S1, S2 Respiratory: Yes: CTA Bilaterally Gastrointestinal: Yes: Soft Genitourinary: Yes: Preciado Present, Hematuria Musculoskeletal: Yes: WNL Edema: No Neurological: Yes: Oriented Psychiatric: Yes: Oriented Labs: CBC, BMP 01/09/20 07:35 01/09/20 07:35 INR, PTT INR 0.92 (0.83-1.09) 01/07/20 08:18 Problem List - Problems (1) Hematuria Code(s): R31.9 - HEMATURIA, UNSPECIFIED (2) CKD (chronic kidney disease) Code(s): N18.9 - CHRONIC KIDNEY DISEASE, UNSPECIFIED Assessment/Plan Current Medications Generic Name Dose Route Start Last Admin Trade Name Freq PRN Reason Stop Dose Admin Acetaminophen 650 mg 01/07/20 14:15 01/07/20 18:58 Tylenol - PO 650 mg Q4H PRN Administration PAIN LEVEL 7 - 10 Amlodipine Besylate 10 mg 01/08/20 10:00 01/09/20 09:44 Norvasc - PO 10 mg DAILY [facility] Administration Aspirin 81 mg 01/08/20 10:00 01/09/20 09:44 Asa - PO 81 mg DAILY [facility] Administration Atorvastatin Calcium 40 mg 01/07/20 22:00 01/08/20 21:39 Lipitor - PO 40 mg HS [facility] Administration Carvedilol 25 mg 01/07/20 22:00 01/09/20 09:44 Coreg - PO 25 mg BID [facility] Administration Gabapentin 300 mg 01/07/20 22:00 01/09/20 09:44 Neurontin - PO 300 mg BID [facility] Administration Heparin Sodium (Porcine) 5,000 unit 01/07/20 22:00 01/09/20 06:24 Heparin - SQ 5,000 unit TID [facility] Administration Hydralazine HCl 100 mg 01/07/20 22:00 01/09/20 06:23 Apresoline - PO 100 mg TID [facility] Administration Ertapenem 0.5 gm/ Sodium 50 mls @ 100 mls/hr 01/08/20 10:00 01/09/20 09:44 Chloride IVPB 100 mls/hr Q24H [facility] Administration Sodium Chloride 1,000 mls @ 75 mls/hr 01/08/20 16:30 01/09/20 06:26 1/2 Normal Saline IV 75 mls/hr ASDIR [facility] Administration Insulin Aspart 1 vial 01/07/20 16:30 01/09/20 11:38 Novolog Vial Sliding Scale - SQ 2 units ACHS [facility] Administration Protocol Insulin Detemir 10 units 01/07/20 22:00 01/09/20 06:24 Levemir Vial SQ 10 unit BID@0700,2200 [facility] Administration Pantoprazole Sodium 20 mg 01/07/20 16:45 01/09/20 09:46 Protonix - PO 20 mg DAILY [facility] Administration Impression 1. CKD 2. hx CVA 3. htn 4. DM 5. hypothyroidism 6. left hydro with stent on ct scan 7. UTI 8. thrombocytopenia 9. anemia 10. MARY Plan - renal function improving - urine starting to clear up, still has some blood - cont fluids while in hospital - will need outpt follow up - cont abx - avoid nsaids - baseline entry manager is 2.7
--- NOTE | 2020-01-09 18:53 | PN ---
Physical Exam: SUBJECTIVE: Patient seen and examined beside, in not acute distress. Says penile pain has improved. No events overnight. OBJECTIVE: Vital Signs Period Temp Pulse Resp BP Sys/Grissom Pulse Ox Last 24 Hr 98.0 F-99.5 F 74-91 18-25 126-147/60-80 94-96 Coo used: [id number] GENERAL: The patient is awake, alert, in no acute distress. HEAD: Normal with no signs of trauma. EYES: PERRL, conjunctiva clear. ENT: moist mucous membranes. NECK: no JVD LUNGS: Breath sounds equal, clear to auscultation bilaterally HEART: Regular rate and rhythm, systolic murmur ABDOMEN: soft, non tender, no suprapubic pain : valero present, with bright red urine in urine. EXTREMITIES: warm, well-perfused, no edema Laboratory Results - last 24 hr 01/08/20 01/09/20 01/09/20 21:10 06:10 07:35 WBC 7.7 RBC 3.32 L Hgb 8.7 L Hct 27.0 L MCV 81.3 MCH 26.1 MCHC 32.1 RDW 14.6 Plt Count 126 L MPV 10.5 Sodium Potassium Chloride Carbon Dioxide Anion Gap BUN Creatinine Est GFR (CKD-EPI)AfAm Est GFR (CKD-EPI)NonAf POC Glucometer 208 208 Random Glucose Calcium Phosphorus Magnesium 01/09/20 01/09/20 01/09/20 07:35 11:33 16:57 WBC RBC Hgb Hct MCV MCH MCHC RDW Plt Count MPV Sodium 144 Potassium 3.9 Chloride 114 H Carbon Dioxide 21 Anion Gap 9 BUN 43.0 H Creatinine 3.1 H Est GFR (CKD-EPI)AfAm 22.25 Est GFR (CKD-EPI)NonAf 19.20 POC Glucometer 182 180 Random Glucose 172 H Calcium 8.1 L Phosphorus 4.0 Magnesium 2.2 Active Medications Generic Name Dose Route Start Last Admin Trade Name Freq PRN Reason Stop Dose Admin Acetaminophen 650 mg 01/07/20 14:15 01/07/20 18:58 Tylenol - PO 650 mg Q4H PRN Administration PAIN LEVEL 7 - 10 Amlodipine Besylate 10 mg 01/08/20 10:00 01/09/20 09:44 Norvasc - PO 10 mg DAILY [facility] Administration Aspirin 81 mg 01/08/20 10:00 01/09/20 09:44 Asa - PO 81 mg DAILY [facility] Administration Atorvastatin Calcium 40 mg 01/07/20 22:00 01/08/20 21:39 Lipitor - PO 40 mg HS [facility] Administration Carvedilol 25 mg 01/07/20 22:00 01/09/20 09:44 Coreg - PO 25 mg BID [facility] Administration Gabapentin 300 mg 01/07/20 22:00 01/09/20 09:44 Neurontin - PO 300 mg BID [facility] Administration Heparin Sodium (Porcine) 5,000 unit 01/07/20 22:00 01/09/20 13:55 Heparin - SQ 5,000 unit TID [facility] Administration Hydralazine HCl 100 mg 01/07/20 22:00 01/09/20 13:55 Apresoline - PO 100 mg TID [facility] Administration Ertapenem 0.5 gm/ Sodium 50 mls @ 100 mls/hr 01/08/20 10:00 01/09/20 09:44 Chloride IVPB 100 mls/hr Q24H [facility] Administration Sodium Chloride 1,000 mls @ 75 mls/hr 01/08/20 16:30 01/09/20 13:56 1/2 Normal Saline IV 75 mls/hr ASDIR [facility] Administration Insulin Aspart 1 vial 01/07/20 16:30 01/09/20 17:03 Novolog Vial Sliding Scale - SQ 2 units ACHS [facility] Administration Protocol Insulin Detemir 10 units 01/07/20 22:00 01/09/20 06:24 Levemir Vial SQ 10 unit BID@0700,2200 [facility] Administration Pantoprazole Sodium 20 mg 01/07/20 16:45 01/09/20 09:46 Protonix - PO 20 mg DAILY [facility] Administration ASSESSMENT/PLAN: 69 y.o. Georgian speaking male PMHx of HTN, CKD stage 2, Diabetes, CAD, prostate cancer (s/p radiation), CVA, nepthrolithiasis, L ureteral stricture with hydronephrosis presents to the ED with an acute onset of left sided flank pain and hematuria UTI vs Pyelonephritis - Patient has had L sided flank pain and hematuria, UA positive - Previous cultures show ESBL E. Coli so switched meropenem to ertapenem (Dr. Garrido consulted) - Ertapenem Day 7 - on discharge can d/c antibiotics - Avoid NSAIDS & other nephrotoxic drugs - Tylenol 650 Q4 PRN - Nephrology consult placed (Dr. 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 cancer tx - Urology consult (Facundo) patient underwent a left ureteral stent exchange 01/06 Procedure findings: grade 5/5 left hydronephrosis/high grade bulbous urethral stricture/bladder neck contracture patient will need to go home with valero for 1 week and f/u outpatient MARY on top of CKD - BUN/Cr increased after surgery 3.4 >> today 3.2 continue to monitor - IV 1/2 NS given - repeat in BMP in AM - baseline cr 2.7 Diabetes - Sliding scale - Levemir 10 BIG - Diabetic diet Hypertension - Coreg 25mg PO BID - Amlodipine 10mg PO daily - Hydralizine 100mg PO TID Anemia - Likely due to stage 2 CKD - continue to monitor Thrombocytopenia - improving - Platelets 127 - Likely due to stage 2 CKD - continue to trend Bilateral Adrenal hyperpiesia - Incidental finding on CT scan - Would recommend outpatient f/u for management FEN - 1/2 NS at 250 ml/hr - Diabetic diet DVT Prophylaxis - Mechanical SCD'S bilateral - Heparin 5000 TID - ASA 81 MG daily Visit type - Emergency Visit Emergency Visit: Yes ED Registration Date: 01/03/20 Care time: The patient presented to the Emergency Department on the above date and was hospitalized for further evaluation of their emergent condition. - New Patient This patient is new to me today: No - Critical Care Critical Care patient: No - Discharge Referral Referred to [facility] Med [facility] No ATTENDING PHYSICIAN STATEMENT I saw and evaluated the patient. I reviewed the resident's note and discussed the case with the resident. I agree with the resident's findings and plan as documented. SUBJECTIVE: OBJECTIVE: ASSESSMENT AND PLAN:
--- NOTE | 2020-01-09 19:50 | PN ---
Progress Note, Physician History of Present Illness: Pt is alert. Still with hematuria. Denies suprapubic/abd discomfort. Afebrile today. - Current Medication List Current Medications: Active Medications Acetaminophen (Tylenol -) 650 mg PO Q4H PRN PRN Reason: PAIN LEVEL 7 - 10 Last Admin: 01/07/20 18:58 Dose: 650 mg Documented by: Amlodipine Besylate (Norvasc -) 10 mg PO DAILY [facility] Last Admin: 01/09/20 09:44 Dose: 10 mg Documented by: Aspirin (Asa -) 81 mg PO DAILY [facility] Last Admin: 01/09/20 09:44 Dose: 81 mg Documented by: Atorvastatin Calcium (Lipitor -) 40 mg PO HS [facility] Last Admin: 01/08/20 21:39 Dose: 40 mg Documented by: Carvedilol (Coreg -) 25 mg PO BID [facility] Last Admin: 01/09/20 09:44 Dose: 25 mg Documented by: Gabapentin (Neurontin -) 300 mg PO BID [facility] Last Admin: 01/09/20 09:44 Dose: 300 mg Documented by: Heparin Sodium (Porcine) (Heparin -) 5,000 unit SQ TID [facility] Last Admin: 01/09/20 13:55 Dose: 5,000 unit Documented by: Hydralazine HCl (Apresoline -) 100 mg PO TID [facility] Last Admin: 01/09/20 13:55 Dose: 100 mg Documented by: Ertapenem 0.5 gm/ Sodium (Chloride) 50 mls @ 100 mls/hr IVPB Q24H [facility] Last Admin: 01/09/20 09:44 Dose: 100 mls/hr Documented by: Sodium Chloride (1/2 Normal Saline) 1,000 mls @ 75 mls/hr IV ASDIR [facility] Last Admin: 01/09/20 13:56 Dose: 75 mls/hr Documented by: Insulin Aspart (Novolog Vial Sliding Scale -) 1 vial SQ ACHS [facility]; Protocol Last Admin: 01/09/20 17:03 Dose: 2 units Documented by: Insulin Detemir (Levemir Vial) 10 units SQ BID@0700,2200 [facility] Last Admin: 01/09/20 06:24 Dose: 10 unit Documented by: Pantoprazole Sodium (Protonix -) 20 mg PO DAILY [facility] Last Admin: 01/09/20 09:46 Dose: 20 mg Documented by: - Objective Vital Signs: Vital Signs Temperature 98.4 F 01/09/20 17:00 Pulse Rate 82 01/09/20 17:00 Respiratory Rate 18 01/09/20 17:00 Blood Pressure 147/68 01/09/20 17:00 O2 Sat by Pulse Oximetry (%) 95 01/09/20 13:00 Constitutional: Yes: No Distress, Calm Cardiovascular: Yes: Regular Rate and Rhythm Respiratory: Yes: Regular Gastrointestinal: Yes: Normal Bowel Sounds, Soft Genitourinary: Yes: Preciado Present, Hematuria Extremities: Yes: WNL Neurological: Yes: Alert Labs: CBC, BMP 01/09/20 07:35 01/09/20 07:35 INR, PTT INR 0.92 (0.83-1.09) 01/07/20 08:18 Microbiology 01/03/20 20:20 Blood - Peripheral Venous Blood Culture - Final NO GROWTH AFTER 5 DAYS INCUBATION 01/03/20 20:20 Blood - Peripheral Venous Blood Culture - Final NO GROWTH AFTER 5 DAYS INCUBATION 01/04/20 20:15 Urine - Urine - Catheterized Urine Culture - Final NO GROWTH OBTAINED 01/03/20 11:35 Urine - Urine Preciado Urine Culture - Final Contaminated: Please Repeat Problem List - Problems (1) Hematuria Code(s): R31.9 - HEMATURIA, UNSPECIFIED (2) CKD (chronic kidney disease) Code(s): N18.9 - CHRONIC KIDNEY DISEASE, UNSPECIFIED (3) CAD (coronary artery disease) Code(s): I25.10 - ATHSCL HEART DISEASE OF [place] CORONARY ARTERY W/O ANG PCTRS (4) Diabetes Code(s): E11.9 - TYPE 2 DIABETES MELLITUS WITHOUT COMPLICATIONS (5) History of urethral stent Code(s): [id number] - (6) Hypertension Code(s): I10 - ESSENTIAL (PRIMARY) HYPERTENSION (7) UTI (urinary tract infection) Code(s): N39.0 - URINARY TRACT INFECTION, SITE NOT SPECIFIED Qualifiers: Urinary tract infection type: catheter-associated UTI Indwelling urinary catheter type: indwelling urethral catheter Encounter type: subsequent encounter Qualified Code(s): T83.511D - Infection and inflammatory reaction due to indwelling urethral catheter, subsequent encounter Assessment/Plan Hematuria MARY Ureteral strictures hydronephrosis s/p Lt urethral stent exchange Hx of Prostate CA Fever -- pt with intermittent mild temp elevations, hematuria -- continue antibiotics for now monitor temp trend latest cultures no growth
[2020-01-09] MEDS: ATORVASTATIN CA 40 MG TABLET (FP) PO SCH (21:16)
[2020-01-10] MEDS: SODIUM CHLORIDE 0.45% 1,000 ML IV SCH ×3 (03:44→17:42)
[2020-01-10] MEDS: HEPARIN NA (PORCINE) 5,000 UNITS/ML 1ML VIAL SQ SCH ×2 (06:34→13:50)
[2020-01-10] MEDS: hydrALAZINE HCL 50 MG TABLET (FP) PO SCH ×3 (06:34→21:49)
[2020-01-10] MEDS: INSULIN (LEVEMIR) 100 UNITS/ML UNITS SQ SCH ×2 (06:35→21:50)
[2020-01-10] MEDS: INSULIN SLIDING SCALE (NOVOLOG) 1 VIAL SQ SCH ×4 (06:35→21:50)
[2020-01-10] MEDS ORDERED: PT OWN MED DRAWER 7, Y5N ONE (09:16)
[2020-01-10] MEDS: amLODIPine BESYLATE 10 MG TABLET (FP) PO SCH (09:21)
[2020-01-10] MEDS: CARVEDILOL 25 MG TABLET (FP) PO SCH ×2 (09:21→21:49)
[2020-01-10] MEDS: PANTOPRAZOLE 20 MG TABLET PO SCH (09:21)
[2020-01-10] MEDS: GABAPENTIN 300 MG CAPSULE PO SCH ×2 (09:21→21:50)
[2020-01-10] MEDS: ASPIRIN 81 MG CHEWABLE TABLETS PO SCH (09:22)
[2020-01-10] MEDS: ERTAPENEM SODIUM 0.5 GM in SODIUM CHLORIDE 50 ML IVPB SCH (09:22)
[2020-01-10] MEDS ORDERED: INSULIN (NOVOLOG) ASPART 100 UNITS/ML 10ML VIAL ONE (13:15)
[2020-01-10 13:54] LABS: HEMATOCRIT 28.9 % (35.4-49); HEMOGLOBIN 9.4 GM/dL (11.7-16.9); MCH 26.5 pg (25.7-33.7); MCHC 32.4 g/dl (32.0-35.9); MEAN CELL VOLUME 81.8 fl (80-96); MEAN PLT VOLUME 10.9 fl (7.5-11.1); PLATELET COUNT 154 K/MM3 (134-434); RBC 3.53 M/mm3 (4.00-5.60); RDW 14.6 % (11.9-15.9); WHITE BLOOD COUNT 8.8 K/mm3 (4.0-10.0)
--- NOTE | 2020-01-10 14:09 | PN ---
Progress Note, Physician History of Present Illness: Pt seen and examined at bedside. He is awake and alert. He denies shortness of breath. - Current Medication List Current Medications: Active Medications Acetaminophen (Tylenol -) 650 mg PO Q4H PRN PRN Reason: PAIN LEVEL 7 - 10 Last Admin: 01/07/20 18:58 Dose: 650 mg Documented by: Amlodipine Besylate (Norvasc -) 10 mg PO DAILY [facility] Last Admin: 01/10/20 09:21 Dose: 10 mg Documented by: Aspirin (Asa -) 81 mg PO DAILY [facility] Last Admin: 01/10/20 09:22 Dose: 81 mg Documented by: Atorvastatin Calcium (Lipitor -) 40 mg PO HS [facility] Last Admin: 01/09/20 21:16 Dose: 40 mg Documented by: Carvedilol (Coreg -) 25 mg PO BID [facility] Last Admin: 01/10/20 09:21 Dose: 25 mg Documented by: Gabapentin (Neurontin -) 300 mg PO BID [facility] Last Admin: 01/10/20 09:21 Dose: 300 mg Documented by: Heparin Sodium (Porcine) (Heparin -) 5,000 unit SQ TID [facility] Last Admin: 01/10/20 13:50 Dose: 5,000 unit Documented by: Hydralazine HCl (Apresoline -) 100 mg PO TID [facility] Last Admin: 01/10/20 13:49 Dose: 100 mg Documented by: Ertapenem 0.5 gm/ Sodium (Chloride) 50 mls @ 100 mls/hr IVPB Q24H [facility] Last Admin: 01/10/20 09:22 Dose: 100 mls/hr Documented by: Sodium Chloride (1/2 Normal Saline) 1,000 mls @ 75 mls/hr IV ASDIR [facility] Last Admin: 01/10/20 03:44 Dose: 75 mls/hr Documented by: Insulin Aspart (Novolog Vial Sliding Scale -) 1 vial SQ ACHS [facility]; Protocol Last Admin: 01/10/20 12:00 Dose: 2 units Documented by: Insulin Detemir (Levemir Vial) 10 units SQ BID@0700,2200 [facility] Last Admin: 01/10/20 06:35 Dose: 10 unit Documented by: Pantoprazole Sodium (Protonix -) 20 mg PO DAILY [facility] Last Admin: 01/10/20 09:21 Dose: 20 mg Documented by: - Objective Vital Signs: Vital Signs Temperature 98.1 F 01/10/20 10:00 Pulse Rate 98 H 01/10/20 10:00 Respiratory Rate 20 01/10/20 10:00 Blood Pressure 151/79 01/10/20 10:00 O2 Sat by Pulse Oximetry (%) 97 01/10/20 10:00 Constitutional: Yes: Calm Eyes: Yes: Conjunctiva Clear HENT: Yes: Atraumatic Neck: Yes: Supple Cardiovascular: Yes: S1, S2 Respiratory: Yes: CTA Bilaterally Gastrointestinal: Yes: Soft Genitourinary: Yes: Preciado Present, Hematuria Edema: No Neurological: Yes: Oriented Psychiatric: Yes: Oriented Labs: CBC, BMP 01/10/20 13:07 INR, PTT INR 0.92 (0.83-1.09) 01/07/20 08:18 Problem List - Problems (1) Hematuria Code(s): R31.9 - HEMATURIA, UNSPECIFIED (2) CKD (chronic kidney disease) Code(s): N18.9 - CHRONIC KIDNEY DISEASE, UNSPECIFIED Assessment/Plan Current Medications Generic Name Dose Route Start Last Admin Trade Name Freq PRN Reason Stop Dose Admin Acetaminophen 650 mg 01/07/20 14:15 01/07/20 18:58 Tylenol - PO 650 mg Q4H PRN Administration PAIN LEVEL 7 - 10 Amlodipine Besylate 10 mg 01/08/20 10:00 01/10/20 09:21 Norvasc - PO 10 mg DAILY [facility] Administration Aspirin 81 mg 01/08/20 10:00 01/10/20 09:22 Asa - PO 81 mg DAILY [facility] Administration Atorvastatin Calcium 40 mg 01/07/20 22:00 01/09/20 21:16 Lipitor - PO 40 mg HS [facility] Administration Carvedilol 25 mg 01/07/20 22:00 01/10/20 09:21 Coreg - PO 25 mg BID [facility] Administration Gabapentin 300 mg 01/07/20 22:00 01/10/20 09:21 Neurontin - PO 300 mg BID [facility] Administration Heparin Sodium (Porcine) 5,000 unit 01/07/20 22:00 01/10/20 13:50 Heparin - SQ 5,000 unit TID [facility] Administration Hydralazine HCl 100 mg 01/07/20 22:00 01/10/20 13:49 Apresoline - PO 100 mg TID [facility] Administration Ertapenem 0.5 gm/ Sodium 50 mls @ 100 mls/hr 01/08/20 10:00 01/10/20 09:22 Chloride IVPB 100 mls/hr Q24H [facility] Administration Sodium Chloride 1,000 mls @ 75 mls/hr 01/08/20 16:30 01/10/20 03:44 1/2 Normal Saline IV 75 mls/hr ASDIR [facility] Administration Insulin Aspart 1 vial 01/07/20 16:30 01/10/20 12:00 Novolog Vial Sliding Scale - SQ 2 units ACHS [facility] Administration Protocol Insulin Detemir 10 units 01/07/20 22:00 01/10/20 06:35 Levemir Vial SQ 10 unit BID@0700,2200 [facility] Administration Pantoprazole Sodium 20 mg 01/07/20 16:45 01/10/20 09:21 Protonix - PO 20 mg DAILY [facility] Administration Impression 1. CKD 2. hx CVA 3. htn 4. DM 5. hypothyroidism 6. left hydro with stent on ct scan 7. UTI 8. thrombocytopenia 9. anemia 10. 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
[2020-01-10 14:18] LABS: CALCIUM 8.4 mg/dL (8.5-10.1); POTASSIUM 4.3 mmol/L (3.5-5.1)
[2020-01-10 14:21] LABS: PHOSPHOROUS 3.2 mg/dL (2.5-4.9)
--- NOTE | 2020-01-10 15:42 | PN ---
Physical Exam: SUBJECTIVE: Patient seen and examined, says penile pain has decreased but still present. No events overnight reported. OBJECTIVE: Vital Signs Period Temp Pulse Resp BP Sys/Grissom Pulse Ox Last 24 Hr 98.1 F-99.6 F 82-98 18-20 146-151/68-79 96-97 GENERAL: The patient is awake, alert, in no acute distress. HEAD: Normal with no signs of trauma. EYES: PERRL, conjunctiva clear. ENT: moist mucous membranes. NECK: no JVD LUNGS: Breath sounds equal, clear to auscultation bilaterally HEART: Regular rate and rhythm, systolic murmur ABDOMEN: soft, non tender, no suprapubic pain : valero present, still has bright red blood in bag EXTREMITIES: warm, well-perfused, no edema Laboratory Results - last 24 hr 01/09/20 01/09/20 01/10/20 16:57 21:14 06:09 WBC RBC Hgb Hct MCV MCH MCHC RDW Plt Count MPV Sodium Potassium Chloride Carbon Dioxide Anion Gap BUN Creatinine Est GFR (CKD-EPI)AfAm Est GFR (CKD-EPI)NonAf POC Glucometer 180 190 205 Random Glucose Calcium Phosphorus Magnesium 01/10/20 01/10/20 01/10/20 11:23 13:07 13:07 WBC 8.8 RBC 3.53 L Hgb 9.4 L Hct 28.9 L MCV 81.8 MCH 26.5 MCHC 32.4 RDW 14.6 Plt Count 154 D MPV 10.9 Sodium 141 Potassium 4.3 Chloride 111 H Carbon Dioxide 22 Anion Gap 9 BUN 37.0 H Creatinine 3.0 H Est GFR (CKD-EPI)AfAm 23.15 Est GFR (CKD-EPI)NonAf 19.97 POC Glucometer 166 Random Glucose 214 H Calcium 8.4 L Phosphorus 3.2 Magnesium 2.0 Active Medications Generic Name Dose Route Start Last Admin Trade Name Freq PRN Reason Stop Dose Admin Acetaminophen 650 mg 01/07/20 14:15 01/07/20 18:58 Tylenol - PO 650 mg Q4H PRN Administration PAIN LEVEL 7 - 10 Amlodipine Besylate 10 mg 01/08/20 10:00 01/10/20 09:21 Norvasc - PO 10 mg DAILY [facility] Administration Aspirin 81 mg 01/08/20 10:00 07/16/20 09:22 Asa - PO 81 mg DAILY [facility] Administration Atorvastatin Calcium 40 mg 01/07/20 22:00 01/09/20 21:16 Lipitor - PO 40 mg HS [facility] Administration Carvedilol 25 mg 01/07/20 22:00 01/10/20 09:21 Coreg - PO 25 mg BID [facility] Administration Gabapentin 300 mg 01/07/20 22:00 01/10/20 09:21 Neurontin - PO 300 mg BID [facility] Administration Heparin Sodium (Porcine) 5,000 unit 01/07/20 22:00 01/10/20 13:50 Heparin - SQ 5,000 unit TID [facility] Administration Hydralazine HCl 100 mg 01/07/20 22:00 01/10/20 13:49 Apresoline - PO 100 mg TID [facility] Administration Ertapenem 0.5 gm/ Sodium 50 mls @ 100 mls/hr 01/08/20 10:00 01/10/20 09:22 Chloride IVPB 100 mls/hr Q24H [facility] Administration Sodium Chloride 1,000 mls @ 75 mls/hr 01/08/20 16:30 01/10/20 03:44 1/2 Normal Saline IV 75 mls/hr ASDIR [facility] Administration Insulin Aspart 1 vial 01/07/20 16:30 01/10/20 12:00 Novolog Vial Sliding Scale - SQ 2 units ACHS [facility] Administration Protocol Insulin Detemir 10 units 01/07/20 22:00 01/10/20 06:35 Levemir Vial SQ 10 unit BID@0700,2200 [facility] Administration Pantoprazole Sodium 20 mg 01/07/20 16:45 01/10/20 09:21 Protonix - PO 20 mg DAILY [facility] Administration ASSESSMENT/PLAN: 69 y.o. Cambodian speaking male PMHx of HTN, CKD stage 2, Diabetes, CAD, prostate cancer (s/p radiation), CVA, nepthrolithiasis, L ureteral stricture with hydronephrosis presents to the ED with an acute onset of left sided flank pain and hematuria UTI vs Pyelonephritis - Ertapenem Day 8 - on discharge can d/c antibiotics - Avoid NSAIDS & other nephrotoxic drugs - Tylenol 650 Q4 PRN - Nephrology consult placed (Dr. 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 - Urology consult (Facundo) patient underwent a left ureteral stent exchange 01/06 Procedure findings: grade 5/5 left hydronephrosis/high grade bulbous urethral stricture/bladder neck contracture patient will need to go home with valero for 1 week and f/u outpatient appointment made and in plan monitoring hematuria from procedure MARY on top of CKD - BUN/Cr increased after surgery and trending down - IV 1/2 NS given - baseline cr 2.7 Diabetes - Sliding scale - Levemir 10 BIG - Diabetic diet Hypertension - Coreg 25mg PO BID - Amlodipine 10mg PO daily - Hydralizine 100mg PO TID Anemia - Likely due to stage 2 CKD - continue to monitor FEN - 1/2 NS at 250 ml/hr - Diabetic diet DVT Prophylaxis - Mechanical SCD'S bilateral - Heparin 5000 TID - ASA 81 MG daily DISPO: - plan to d/c tomorrow pending hematuria as decreased and BUN/cr continues to trend down Visit type - Emergency Visit Emergency Visit: Yes ED Registration Date: 01/03/20 Care time: The patient presented to the Emergency Department on the above date and was hospitalized for further evaluation of their emergent condition. - New Patient This patient is new to me today: No - Critical Care Critical Care patient: No - Discharge Referral Referred to [facility] No ATTENDING PHYSICIAN STATEMENT I saw and evaluated the patient. I reviewed the resident's note and discussed the case with the resident. I agree with the resident's findings and plan as documented. SUBJECTIVE: OBJECTIVE: ASSESSMENT AND PLAN:
--- NOTE | 2020-01-10 16:17 | PN ---
Teaching Attending Note Name of Resident: Rena Clarke ATTENDING PHYSICIAN STATEMENT I saw and evaluated the patient. I reviewed the resident's note and discussed the case with the resident. I agree with the resident's findings and plan as documented. SUBJECTIVE: Patient continues to have hematuria, no nausea or vomiting, no shortness of breath. OBJECTIVE: Vital Signs Temperature 98.1 F 01/10/20 10:00 Pulse Rate 98 H 01/10/20 10:00 Respiratory Rate 20 01/10/20 10:00 Blood Pressure 151/79 01/10/20 10:00 O2 Sat by Pulse Oximetry (%) 97 01/10/20 10:00 PE: per resident's note +valero, + hematuria CBCD WBC 8.8 K/mm3 (4.0-10.0) 01/10/20 13:07 RBC 3.53 M/mm3 (4.00-5.60) L 01/10/20 13:07 Hgb 9.4 GM/dL (11.7-16.9) L 01/10/20 13:07 Hct 28.9 % (35.4-49) L 01/10/20 13:07 MCV 81.8 fl (80-96) 01/10/20 13:07 MCHC 32.4 g/dl (32.0-35.9) 01/10/20 13:07 RDW 14.6 % (11.9-15.9) 01/10/20 13:07 Plt Count 154 K/MM3 (134-434) D 01/10/20 13:07 MPV 10.9 fl (7.5-11.1) 01/10/20 13:07 CMP Sodium 141 mmol/L (136-145) 01/10/20 13:07 Potassium 4.3 mmol/L (3.5-5.1) 01/10/20 13:07 Chloride 111 mmol/L (98-107) H 01/10/20 13:07 Carbon Dioxide 22 mmol/L (21-32) 01/10/20 13:07 Anion Gap 9 MMOL/L (8-16) 01/10/20 13:07 BUN 37.0 mg/dL (7-18) H 01/10/20 13:07 Creatinine 3.0 mg/dL (0.55-1.3) H 01/10/20 13:07 Random Glucose 214 mg/dL (74-106) H 01/10/20 13:07 Calcium 8.4 mg/dL (8.5-10.1) L 01/10/20 13:07 Total Bilirubin 0.3 mg/dL (0.2-1) 01/05/20 07:10 AST 9 U/L (15-37) L 01/05/20 07:10 ALT 16 U/L (13-61) 01/05/20 07:10 Alkaline Phosphatase 98 U/L (45-117) 01/05/20 07:10 Total Protein 6.3 g/dl (6.4-8.2) L 01/05/20 07:10 Albumin 2.9 g/dl (3.4-5.0) L 01/05/20 07:10 Current Medications Generic Name Dose Route Start Last Admin Trade Name Freq PRN Reason Stop Dose Admin Acetaminophen 650 mg 01/07/20 14:15 01/07/20 18:58 Tylenol - PO 650 mg Q4H PRN Administration PAIN LEVEL 7 - 10 Amlodipine Besylate 10 mg 01/08/20 10:00 01/10/20 09:21 Norvasc - PO 10 mg DAILY [facility] Administration Aspirin 81 mg 01/08/20 10:00 01/10/20 09:22 Asa - PO 81 mg DAILY [facility] Administration Atorvastatin Calcium 40 mg 01/07/20 22:00 01/09/20 21:16 Lipitor - PO 40 mg HS [facility] Administration Carvedilol 25 mg 01/07/20 22:00 01/10/20 09:21 Coreg - PO 25 mg BID [facility] Administration Gabapentin 300 mg 01/07/20 22:00 01/10/20 09:21 Neurontin - PO 300 mg BID [facility] Administration Heparin Sodium (Porcine) 5,000 unit 01/07/20 22:00 01/10/20 13:50 Heparin - SQ 5,000 unit TID [facility] Administration Hydralazine HCl 100 mg 01/07/20 22:00 01/10/20 13:49 Apresoline - PO 100 mg TID [facility] Administration Ertapenem 0.5 gm/ Sodium 50 mls @ 100 mls/hr 01/08/20 10:00 01/10/20 09:22 Chloride IVPB 100 mls/hr Q24H [facility] Administration Sodium Chloride 1,000 mls @ 75 mls/hr 01/08/20 16:30 01/10/20 03:44 1/2 Normal Saline IV 75 mls/hr ASDIR [facility] Administration Insulin Aspart 1 vial 01/07/20 16:30 01/10/20 12:00 Novolog Vial Sliding Scale - SQ 2 units ACHS [facility] Administration Protocol Insulin Detemir 10 units 01/07/20 22:00 01/10/20 06:35 Levemir Vial SQ 10 unit BID@0700,2200 [facility] Administration Pantoprazole Sodium 20 mg 01/07/20 16:45 01/10/20 09:21 Protonix - PO 20 mg DAILY [facility] Administration Home Medications Medication Instructions Recorded Amlodipine Besylate [Norvasc -] 10 mg PO DAILY 05/11/19 Hydralazine HCl 100 mg PO TID 05/11/19 Labetalol HCl [Normodyne -] 300 mg PO BID 05/11/19 Albuterol Sulfate Inhaler - 1 - 2 inh PO Q4H 05/14/19 [Ventolin HFA Inhaler -] Bromfenac Sodium [Prolensa] 3 ml OD DAILY 05/14/19 Furosemide [Lasix -] 40 mg PO DAILY tablet 05/14/19 Insulin (Levemir) [Levemir Vial] 35 units SQ ONCE 05/14/19 Insulin Sliding Scale [Novolog 10 units SQ BID 05/14/19 Vial Sliding Scale -] Prednisolone 1% Ophthalmic [Pred 1 drop OD QID 05/14/19 Forte 1% -] Atorvastatin Calcium [Lipitor] 40 mg PO DAILY 01/04/20 Gabapentin 400 mg PO BID 01/04/20 Aspirin [Aspirin EC] 81 mg PO DAILY 01/05/20 Latanoprost 0.005% Eye Drops 1 drop HS 01/10/20 [Xalatan 0.005% Eye Drops -] Omeprazole/Sodium Bicarbonate 1 pkt PO BID 01/10/20 [Omeprazole-Bicarb 20-1,680 Pkt] Microbiology 01/03/20 20:20 Blood - Peripheral Venous Blood Culture - Final NO GROWTH AFTER 5 DAYS INCUBATION 01/03/20 20:20 Blood - Peripheral Venous Blood Culture - Final NO GROWTH AFTER 5 DAYS INCUBATION 01/04/20 20:15 Urine - Urine - Catheterized Urine Culture - Final NO GROWTH OBTAINED 01/03/20 11:35 Urine - Urine Valero Urine Culture - Final Contaminated: Please Repeat ASSESSMENT AND PLAN: This patient is a 69yom with PMhx of HTN, CKD, Diabetes, CAD, prostate cancer, CVA, nepthrolithiasis, L ureteral stricture with hydronephrosis s/p stent placement and high grade bladder neck contracture, and recurrent ESBL UTis who presented with hematuria and pain and was found to have UTI # Complicated UTI/pyelonephritis: on Ertapenem continue s/p left ureteral stent exchange by dr Corcoran on 01/08/2020, continues to have hematuria , will continue to monitor. # MARY: trend, 3.4-->3.1-->3.0 today due to infection, and chronic obstruction: cont IVF, and continue to monitor #H/x CAD, HTN: cont hydralazine , norvasc , cont ASA # Hematuria : resolving DVT px : will stop heparin sq due to hematuria ,and scds for now, possible dc in am
--- NOTE | 2020-01-10 19:48 | PN ---
Progress Note, Physician History of Present Illness: Pt with some penile pain from valero site. +hematuria. Tmax 99.6F. Denies suprapubic/flank pain. No other specific complaints. - Current Medication List Current Medications: Active Medications Acetaminophen (Tylenol -) 650 mg PO Q4H PRN PRN Reason: PAIN LEVEL 7 - 10 Last Admin: 01/07/20 18:58 Dose: 650 mg Documented by: Amlodipine Besylate (Norvasc -) 10 mg PO DAILY [facility] Last Admin: 01/10/20 09:21 Dose: 10 mg Documented by: Aspirin (Asa -) 81 mg PO DAILY [facility] Last Admin: 01/10/20 09:22 Dose: 81 mg Documented by: Atorvastatin Calcium (Lipitor -) 40 mg PO HS [facility] Last Admin: 01/09/20 21:16 Dose: 40 mg Documented by: Carvedilol (Coreg -) 25 mg PO BID [facility] Last Admin: 01/10/20 09:21 Dose: 25 mg Documented by: Gabapentin (Neurontin -) 300 mg PO BID [facility] Last Admin: 01/10/20 09:21 Dose: 300 mg Documented by: Hydralazine HCl (Apresoline -) 100 mg PO TID [facility] Last Admin: 01/10/20 13:49 Dose: 100 mg Documented by: Ertapenem 0.5 gm/ Sodium (Chloride) 50 mls @ 100 mls/hr IVPB Q24H [facility] Last Admin: 01/10/20 09:22 Dose: 100 mls/hr Documented by: Sodium Chloride (1/2 Normal Saline) 1,000 mls @ 75 mls/hr IV ASDIR [facility] Last Admin: 01/10/20 17:42 Dose: 75 mls/hr Documented by: Insulin Aspart (Novolog Vial Sliding Scale -) 1 vial SQ ACHS [facility]; Protocol Last Admin: 01/10/20 17:42 Dose: 4 units Documented by: Insulin Detemir (Levemir Vial) 10 units SQ BID@0700,2200 [facility] Last Admin: 01/10/20 06:35 Dose: 10 unit Documented by: Pantoprazole Sodium (Protonix -) 20 mg PO DAILY [facility] Last Admin: 01/10/20 09:21 Dose: 20 mg Documented by: - Objective Vital Signs: Vital Signs Temperature 98.7 F 01/10/20 18:00 Pulse Rate 79 01/10/20 18:00 Respiratory Rate 20 01/10/20 18:00 Blood Pressure 146/72 01/10/20 18:00 O2 Sat by Pulse Oximetry (%) 97 01/10/20 10:00 Constitutional: Yes: No Distress, Calm Cardiovascular: Yes: Regular Rate and Rhythm Respiratory: Yes: Regular Gastrointestinal: Yes: Normal Bowel Sounds, Soft Genitourinary: Yes: Valero Present, Hematuria Integumentary: Yes: WNL Neurological: Yes: Alert Labs: CBC, BMP 01/10/20 13:07 01/10/20 13:07 INR, PTT INR 0.92 (0.83-1.09) 01/07/20 08:18 Microbiology 01/03/20 20:20 Blood - Peripheral Venous Blood Culture - Final NO GROWTH AFTER 5 DAYS INCUBATION 01/03/20 20:20 Blood - Peripheral Venous Blood Culture - Final NO GROWTH AFTER 5 DAYS INCUBATION 01/04/20 20:15 Urine - Urine - Catheterized Urine Culture - Final NO GROWTH OBTAINED 01/03/20 11:35 Urine - Urine Valero Urine Culture - Final Contaminated: Please Repeat Problem List - Problems (1) Hematuria Code(s): R31.9 - HEMATURIA, UNSPECIFIED (2) CKD (chronic kidney disease) Code(s): N18.9 - CHRONIC KIDNEY DISEASE, UNSPECIFIED (3) CAD (coronary artery disease) Code(s): I25.10 - ATHSCL HEART DISEASE OF [place] CORONARY ARTERY W/O ANG PCTRS (4) Diabetes Code(s): E11.9 - TYPE 2 DIABETES MELLITUS WITHOUT COMPLICATIONS (5) History of urethral stent Code(s): [id number] - (6) Hypertension Code(s): I10 - ESSENTIAL (PRIMARY) HYPERTENSION (7) UTI (urinary tract infection) Code(s): N39.0 - URINARY TRACT INFECTION, SITE NOT SPECIFIED Qualifiers: Urinary tract infection type: catheter-associated UTI Indwelling urinary catheter type: indwelling urethral catheter Encounter type: subsequent encounter Qualified Code(s): T83.511D - Infection and inflammatory reaction due to indwelling urethral catheter, subsequent encounter Assessment/Plan Hematuria UTI MARY Ureteral strictures hydronephrosis s/p Lt urethral stent exchange Hx of Prostate CA Fever -- pt still some hematuria, currently afebrile -- on Ertapenem (hx of ESBL + infections), repeat urine cultures neg -- continue Urology followup
[2020-01-10] MEDS: ATORVASTATIN CA 40 MG TABLET (FP) PO SCH (21:50)
[2020-01-11] MEDS: INSULIN SLIDING SCALE (NOVOLOG) 1 VIAL SQ SCH ×3 (06:21→18:06)
[2020-01-11] MEDS: hydrALAZINE HCL 50 MG TABLET (FP) PO SCH ×2 (06:22→13:40)
[2020-01-11] MEDS: INSULIN (LEVEMIR) 100 UNITS/ML UNITS SQ SCH (06:23)
[2020-01-11] MEDS: SODIUM CHLORIDE 0.45% 1,000 ML IV SCH ×2 (06:41→17:58)
[2020-01-11 08:45] LABS: HEMATOCRIT 27.6 % (35.4-49); HEMOGLOBIN 8.9 GM/dL (11.7-16.9); MCH 26.1 pg (25.7-33.7); MCHC 32.3 g/dl (32.0-35.9); MEAN CELL VOLUME 80.9 fl (80-96); MEAN PLT VOLUME 10.6 fl (7.5-11.1); PLATELET COUNT 142 K/MM3 (134-434); RBC 3.41 M/mm3 (4.00-5.60); WHITE BLOOD COUNT 9.1 K/mm3 (4.0-10.0)
[2020-01-11 09:06] LABS: POTASSIUM 3.7 mmol/L (3.5-5.1)
[2020-01-11] MEDS: PANTOPRAZOLE 20 MG TABLET PO SCH (09:15)
[2020-01-11] MEDS: GABAPENTIN 300 MG CAPSULE PO SCH (09:15)
[2020-01-11] MEDS: CARVEDILOL 25 MG TABLET (FP) PO SCH (09:16)
[2020-01-11] MEDS: ASPIRIN 81 MG CHEWABLE TABLETS PO SCH (09:16)
[2020-01-11] MEDS: amLODIPine BESYLATE 10 MG TABLET (FP) PO SCH (09:16)
[2020-01-11] MEDS: ERTAPENEM SODIUM 0.5 GM in SODIUM CHLORIDE 50 ML IVPB SCH (09:28)
[2020-01-11 09:36] LABS: BLOOD UREA NITROGEN 34.2 mg/dL (7-18); CALCIUM 8.5 mg/dL (8.5-10.1); CREATININE 2.8 mg/dL (0.55-1.3); PHOSPHOROUS 3.7 mg/dL (2.5-4.9)
[2020-01-11] MEDS ORDERED: INSULIN (NOVOLOG) ASPART 100 UNITS/ML 10ML VIAL ONE (11:34)
--- NOTE | 2020-01-11 12:36 | PN ---
Progress Note, Physician History of Present Illness: Pt seen and examined at bedside. He is awake and alert. He denies fevers of chills. - Current Medication List Current Medications: Active Medications Acetaminophen (Tylenol -) 650 mg PO Q4H PRN PRN Reason: PAIN LEVEL 7 - 10 Last Admin: 01/07/20 18:58 Dose: 650 mg Documented by: Amlodipine Besylate (Norvasc -) 10 mg PO DAILY [facility] Last Admin: 01/11/20 09:16 Dose: 10 mg Documented by: Aspirin (Asa -) 81 mg PO DAILY [facility] Last Admin: 01/11/20 09:16 Dose: 81 mg Documented by: Atorvastatin Calcium (Lipitor -) 40 mg PO HS [facility] Last Admin: 01/10/20 21:50 Dose: 40 mg Documented by: Carvedilol (Coreg -) 25 mg PO BID [facility] Last Admin: 01/11/20 09:16 Dose: 25 mg Documented by: Gabapentin (Neurontin -) 300 mg PO BID [facility] Last Admin: 01/11/20 09:15 Dose: 300 mg Documented by: Hydralazine HCl (Apresoline -) 100 mg PO TID [facility] Last Admin: 01/11/20 06:22 Dose: 100 mg Documented by: Ertapenem 0.5 gm/ Sodium (Chloride) 50 mls @ 100 mls/hr IVPB Q24H [facility] Last Admin: 01/11/20 09:28 Dose: 100 mls/hr Documented by: Sodium Chloride (1/2 Normal Saline) 1,000 mls @ 75 mls/hr IV ASDIR [facility] Last Admin: 01/11/20 06:41 Dose: 75 mls/hr Documented by: Insulin Aspart (Novolog Vial Sliding Scale -) 1 vial SQ ACHS [facility]; Protocol Last Admin: 01/11/20 11:35 Dose: 2 units Documented by: Insulin Detemir (Levemir Vial) 10 units SQ BID@0700,2200 [facility] Last Admin: 01/11/20 06:23 Dose: 10 unit Documented by: Pantoprazole Sodium (Protonix -) 20 mg PO DAILY [facility] Last Admin: 01/11/20 09:15 Dose: 20 mg Documented by: - Objective Vital Signs: Vital Signs Temperature 98.7 F 01/11/20 05:00 Pulse Rate 84 01/11/20 09:00 Respiratory Rate 18 01/11/20 09:00 Blood Pressure 152/80 01/11/20 09:00 O2 Sat by Pulse Oximetry (%) 96 01/11/20 09:00 Constitutional: Yes: Calm Eyes: Yes: Conjunctiva Clear HENT: Yes: Atraumatic Neck: Yes: Supple Cardiovascular: Yes: S1, S2 Respiratory: Yes: CTA Bilaterally Gastrointestinal: Yes: Normal Bowel Sounds, Soft Genitourinary: Yes: Preciado Present, Hematuria Musculoskeletal: Yes: WNL Edema: No Integumentary: Yes: WNL Neurological: Yes: Oriented Psychiatric: Yes: Oriented Labs: CBC, BMP 01/11/20 07:30 01/11/20 07:30 INR, PTT INR 0.92 (0.83-1.09) 01/07/20 08:18 Problem List - Problems (1) Hematuria Code(s): R31.9 - HEMATURIA, UNSPECIFIED (2) CKD (chronic kidney disease) Code(s): N18.9 - CHRONIC KIDNEY DISEASE, UNSPECIFIED Assessment/Plan Current Medications Generic Name Dose Route Start Last Admin Trade Name Freq PRN Reason Stop Dose Admin Acetaminophen 650 mg 01/07/20 14:15 01/07/20 18:58 Tylenol - PO 650 mg Q4H PRN Administration PAIN LEVEL 7 - 10 Amlodipine Besylate 10 mg 01/08/20 10:00 01/11/20 09:16 Norvasc - PO 10 mg DAILY [facility] Administration Aspirin 81 mg 01/08/20 10:00 01/11/20 09:16 Asa - PO 81 mg DAILY [facility] Administration Atorvastatin Calcium 40 mg 01/07/20 22:00 01/10/20 21:50 Lipitor - PO 40 mg HS [facility] Administration Carvedilol 25 mg 01/07/20 22:00 01/11/20 09:16 Coreg - PO 25 mg BID [facility] Administration Gabapentin 300 mg 01/07/20 22:00 01/11/20 09:15 Neurontin - PO 300 mg BID [facility] Administration Hydralazine HCl 100 mg 01/07/20 22:00 01/11/20 06:22 Apresoline - PO 100 mg TID [facility] Administration Ertapenem 0.5 gm/ Sodium 50 mls @ 100 mls/hr 01/08/20 10:00 01/11/20 09:28 Chloride IVPB 100 mls/hr Q24H [facility] Administration Sodium Chloride 1,000 mls @ 75 mls/hr 01/08/20 16:30 01/11/20 06:41 1/2 Normal Saline IV 75 mls/hr ASDIR [facility] Administration Insulin Aspart 1 vial 01/07/20 16:30 01/11/20 11:35 Novolog Vial Sliding Scale - SQ 2 units ACHS [facility] Administration Protocol Insulin Detemir 10 units 01/07/20 22:00 01/11/20 06:23 Levemir Vial SQ 10 unit BID@0700,2200 [facility] Administration Pantoprazole Sodium 20 mg 01/07/20 16:45 01/11/20 09:15 Protonix - PO 20 mg DAILY [facility] Administration Impression 1. CKD 2. hx CVA 3. htn 4. DM 5. hypothyroidism 6. left hydro with stent on ct scan 7. UTI 8. thrombocytopenia 9. anemia 10. 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
[2020-01-11 15:55] VITALS: PULSE 78
--- NOTE | 2020-01-11 17:04 | PN ---
Teaching Attending Note Name of Resident: Rena Clarke ATTENDING PHYSICIAN STATEMENT I saw and evaluated the patient. I reviewed the resident's note and discussed the case with the resident. I agree with the resident's findings and plan as documented. SUBJECTIVE: Patient is comfortable with jennifer cute distress OBJECTIVE: Vital Signs Temperature 97.4 F L 01/11/20 Pulse Rate 78 01/11/20 Respiratory Rate 18 01/11/20 Blood Pressure 152 /80 01/11/20 O2 Sat by Pulse Oximetry (%) 96 01/11/20 PE: per resident's note : valero catheter is clear but the valero bag + hematuria; tinged blood CBCD WBC 9.1 K/mm3 (4.0-10.0) 01/11/20 07:30 RBC 3.41 M/mm3 (4.00-5.60) L 01/11/20 07:30 Hgb 8.9 GM/dL (11.7-16.9) L 01/11/20 07:30 Hct 27.6 % (35.4-49) L 01/11/20 07:30 MCV 80.9 fl (80-96) 01/11/20 07:30 MCHC 32.3 g/dl (32.0-35.9) 01/11/20 07:30 RDW 15.0 % (11.9-15.9) 01/11/20 07:30 Plt Count 142 K/MM3 (134-434) 01/11/20 07:30 MPV 10.6 fl (7.5-11.1) 01/11/20 07:30 CMP Sodium 141 mmol/L (136-145) 01/11/20 07:30 Potassium 3.7 mmol/L (3.5-5.1) 01/11/20 07:30 Chloride 113 mmol/L (98-107) H 01/11/20 07:30 Carbon Dioxide 21 mmol/L (21-32) 01/11/20 07:30 Anion Gap 8 MMOL/L (8-16) 01/11/20 07:30 BUN 34.2 mg/dL (7-18) H 01/11/20 07:30 Creatinine 2.8 mg/dL (0.55-1.3) H 01/11/20 07:30 Random Glucose 133 mg/dL (74-106) H 01/11/20 07:30 Calcium 8.5 mg/dL (8.5-10.1) 01/11/20 07:30 Total Bilirubin 0.3 mg/dL (0.2-1) 01/05/20 07:10 AST 9 U/L (15-37) L 01/05/20 07:10 ALT 16 U/L (13-61) 01/05/20 07:10 Alkaline Phosphatase 98 U/L (45-117) 01/05/20 07:10 Total Protein 6.3 g/dl (6.4-8.2) L 01/05/20 07:10 Albumin 2.9 g/dl (3.4-5.0) L 01/05/20 07:10 Current Medications Generic Name Dose Route Start Last Admin Trade Name Freq PRN Reason Stop Dose Admin Acetaminophen 650 mg 01/07/20 14:15 01/07/20 18:58 Tylenol - PO 650 mg Q4H PRN Administration PAIN LEVEL 7 - 10 Amlodipine Besylate 10 mg 01/08/20 10:00 01/11/20 09:16 Norvasc - PO 10 mg DAILY LINDSEY Administration Aspirin 81 mg 01/08/20 10:00 01/11/20 09:16 Asa - PO 81 mg DAILY LINDSEY Administration Atorvastatin Calcium 40 mg 01/07/20 22:00 01/10/20 21:50 Lipitor - PO 40 mg HS LINDSEY Administration Carvedilol 25 mg 01/07/20 22:00 01/11/20 09:16 Coreg - PO 25 mg BID LINDSEY Administration Gabapentin 300 mg 01/07/20 22:00 01/11/20 09:15 Neurontin - PO 300 mg BID LINDSEY Administration Hydralazine HCl 100 mg 01/07/20 22:00 01/11/20 13:40 Apresoline - PO 100 mg TID LINDSEY Administration Ertapenem 0.5 gm/ Sodium 50 mls @ 100 mls/hr 01/08/20 10:00 01/11/20 09:28 Chloride IVPB 100 mls/hr Q24H LINDSEY Administration Insulin Aspart 1 vial 01/07/20 16:30 01/11/20 11:35 Novolog Vial Sliding Scale - SQ 2 units ACHS LINDSEY Administration Protocol Insulin Detemir 10 units 01/07/20 22:00 01/11/20 06:23 Levemir Vial SQ 10 unit BID@0700,2200 LINDSEY Administration Pantoprazole Sodium 20 mg 01/07/20 16:45 01/11/20 09:15 Protonix - PO 20 mg DAILY LINDSEY Administration Home Medications Medication Instructions Recorded Amlodipine Besylate [Norvasc -] 10 mg PO DAILY 05/11/19 Hydralazine HCl 100 mg PO TID 05/11/19 Labetalol HCl [Normodyne -] 300 mg PO BID 05/11/19 Albuterol Sulfate Inhaler - 1 - 2 inh PO Q4H 05/14/19 [Ventolin HFA Inhaler -] Bromfenac Sodium [Prolensa] 3 ml OD DAILY 05/14/19 Furosemide [Lasix -] 40 mg PO DAILY tablet 05/14/19 Insulin (Levemir) [Levemir Vial] 35 units SQ ONCE 05/14/19 Insulin Sliding Scale [Novolog 10 units SQ BID 05/14/19 Vial Sliding Scale -] Prednisolone 1% Ophthalmic [Pred 1 drop OD QID 05/14/19 Forte 1% -] Atorvastatin Calcium [Lipitor] 40 mg PO DAILY 01/04/20 Gabapentin 400 mg PO BID 01/04/20 Aspirin [Aspirin EC] 81 mg PO DAILY 01/05/20 Latanoprost 0.005% Eye Drops 1 drop HS 01/10/20 [Xalatan 0.005% Eye Drops -] Omeprazole/Sodium Bicarbonate 1 pkt PO BID 01/10/20 [Omeprazole-Bicarb 20-1,680 Pkt] Microbiology 01/03/20 20:20 Blood - Peripheral Venous Blood Culture - Final NO GROWTH AFTER 5 DAYS INCUBATION 01/03/20 20:20 Blood - Peripheral Venous Blood Culture - Final NO GROWTH AFTER 5 DAYS INCUBATION 01/04/20 20:15 Urine - Urine - Catheterized Urine Culture - Final NO GROWTH OBTAINED 01/03/20 11:35 Urine - Urine Valero Urine Culture - Final Contaminated: Please Repeat ASSESSMENT AND PLAN: This patient is a 69yom with PMhx of HTN, CKD, Diabetes, CAD, prostate cancer, CVA, nepthrolithiasis, L ureteral stricture with hydronephrosis s/p stent placement and high grade bladder neck contracture, and recurrent ESBL UTis who presented with hematuria and pain and was found to have UTI # Complicated UTI/pyelonephritis: on Ertapenem , will dc the patient home today, with valero, discussed with dr. Mitchell , will see the patient today prior his discharge. s/p left ureteral stent exchange by dr Corcoran on 01/08/2020, hematuria is clearing up. Valero will be changed to leg bag. post assessment of dr mitchell , patient will go home repeat UA: negative # MARY: trend, 3.4-->3.1-->3.0--> 2.8 today due to infection, and chronic obstruction. will dc the fluid #H/x CAD, HTN: cont hydralazine , norvasc , cont ASA # Hematuria : resolving DVT px : will stop heparin sq due to hematuria ,and scds for now, dc patient home.
--- NOTE | 2020-01-11 18:19 | DS ---
Physical Exam: SUBJECTIVE: Patient seen and examined beside. Complaining of mild penile pain from catheter. No events overnight. OBJECTIVE: Vital Signs Period Temp Pulse Resp BP Sys/Grissom Pulse Ox Last 24 Hr 97.4 F-99.6 F 78-84 18-18 122-162/57-87 96-100 PHYSICAL EXAM GENERAL: The patient is awake, alert, in no acute distress. HEAD: Normal with no signs of trauma. EYES: PERRL, conjunctiva clear. ENT: moist mucous membranes. NECK: no JVD LUNGS: Breath sounds equal, clear to auscultation bilaterally HEART: Regular rate and rhythm, w/systolic murmur ABDOMEN: soft, non tender, no suprapubic pain : valero present, urine is clearer today with some visible blod clots present. EXTREMITIES: warm, well-perfused, no edema LABS Laboratory Tests 01/03/20 01/03/20 01/03/20 11:35 11:35 11:35 WBC 8.3 RBC 3.62 L Hgb 9.6 L Hct 30.0 L MCV 82.8 MCH 26.5 MCHC 32.0 RDW 14.9 Plt Count 128 L MPV 12.0 H Absolute Neuts (auto) 6.2 Neutrophils % 75.0 Lymphocytes % 14.9 D Monocytes % 8.8 Eosinophils % 0.8 Basophils % 0.5 Nucleated RBC % 0 PT with INR INR Sodium 137 Potassium 4.0 Chloride 105 Carbon Dioxide 23 Anion Gap 9 BUN 50.6 H Creatinine 4.2 H Est GFR (CKD-EPI)AfAm 15.41 Est GFR (CKD-EPI)NonAf 13.30 POC Glucometer Random Glucose 304 H Calcium 8.5 Phosphorus Magnesium Total Bilirubin 0.5 AST 9 L ALT 17 Alkaline Phosphatase 118 H Total Protein 6.9 Albumin 3.4 Urine Color Red Urine Appearance Turbid Urine pH 7.5 Ur Specific [place] 1.020 Urine Protein 4+ H Urine Glucose (UA) Negative Urine Ketones Negative Urine Blood 3+ H Urine Nitrite Positive H Urine Bilirubin Negative Urine Urobilinogen 0.2 Ur Leukocyte Esterase 3+ H Urine WBC (Auto) 42242 Urine RBC (Auto) 8612.1 Urine Casts (Auto) 248 U Pathogenic Cast Auto None seen U Epithel Cells (Auto) 19 Urine Bacteria (Auto) 3080 Urine Yeast (Auto) None seen COVID-19 ([facility]) 01/03/20 01/03/20 01/04/20 21:26 22:23 03:10 WBC RBC Hgb Hct MCV MCH MCHC RDW Plt Count MPV Absolute Neuts (auto) Neutrophils % Lymphocytes % Monocytes % Eosinophils % Basophils % Nucleated RBC % PT with INR INR Sodium Potassium Chloride Carbon Dioxide Anion Gap BUN Creatinine Est GFR (CKD-EPI)AfAm Est GFR (CKD-EPI)NonAf POC Glucometer 312 303 Random Glucose Calcium Phosphorus Magnesium Total Bilirubin AST ALT Alkaline Phosphatase Total Protein Albumin Urine Color Urine Appearance Urine pH Ur Specific [place] Urine Protein Urine Glucose (UA) Urine Ketones Urine Blood Urine Nitrite Urine Bilirubin Urine Urobilinogen Ur Leukocyte Esterase Urine WBC (Auto) Urine RBC (Auto) Urine Casts (Auto) U Pathogenic Cast Auto U Epithel Cells (Auto) Urine Bacteria (Auto) Urine Yeast (Auto) COVID-19 ([facility]) Not detected 01/04/20 01/04/20 01/04/20 04:40 06:15 08:23 WBC 7.5 RBC 3.59 L Hgb 9.6 L Hct 29.8 L MCV 83.0 MCH 26.7 MCHC 32.2 RDW 15.2 Plt Count 107 L MPV 11.7 H Absolute Neuts (auto) Neutrophils % Lymphocytes % Monocytes % Eosinophils % Basophils % Nucleated RBC % PT with INR INR Sodium Potassium Chloride Carbon Dioxide Anion Gap BUN Creatinine Est GFR (CKD-EPI)AfAm Est GFR (CKD-EPI)NonAf POC Glucometer 102 Random Glucose Calcium Phosphorus Magnesium Total Bilirubin AST ALT Alkaline Phosphatase Total Protein Albumin Urine Color Red Urine Appearance Turbid Urine pH 6.5 Ur Specific [place] 1.016 Urine Protein 4+ H Urine Glucose (UA) Negative Urine Ketones Negative Urine Blood 3+ H Urine Nitrite Negative Urine Bilirubin Negative Urine Urobilinogen 1.0 Ur Leukocyte Esterase 3+ H Urine WBC (Auto) 20844 Urine RBC (Auto) 8845 Urine Casts (Auto) 181 U Pathogenic Cast Auto Non seen U Epithel Cells (Auto) 17 Urine Bacteria (Auto) 49 Urine Yeast (Auto) COVID-19 ([facility]) 01/04/20 01/04/20 01/04/20 08:23 11:30 17:50 WBC RBC Hgb Hct MCV MCH MCHC RDW Plt Count MPV Absolute Neuts (auto) Neutrophils % Lymphocytes % Monocytes % Eosinophils % Basophils % Nucleated RBC % PT with INR INR Sodium 142 Potassium 3.7 Chloride 111 H Carbon Dioxide 21 Anion Gap 10 BUN 50.5 H Creatinine 4.0 H Est GFR (CKD-EPI)AfAm 16.35 Est GFR (CKD-EPI)NonAf 14.11 POC Glucometer 193 173 Random Glucose 135 H Calcium 8.5 Phosphorus 3.8 Magnesium 2.2 Total Bilirubin 0.9 AST 6 L ALT 14 Alkaline Phosphatase 100 Total Protein 6.6 Albumin 3.1 L Urine Color Urine Appearance Urine pH Ur Specific [place] Urine Protein Urine Glucose (UA) Urine Ketones Urine Blood Urine Nitrite Urine Bilirubin Urine Urobilinogen Ur Leukocyte Esterase Urine WBC (Auto) Urine RBC (Auto) Urine Casts (Auto) U Pathogenic Cast Auto U Epithel Cells (Auto) Urine Bacteria (Auto) Urine Yeast (Auto) COVID-19 ([facility]) 01/04/20 01/05/20 01/05/20 21:28 05:35 07:10 WBC RBC Hgb Hct MCV MCH MCHC RDW Plt Count MPV Absolute Neuts (auto) Neutrophils % Lymphocytes % Monocytes % Eosinophils % Basophils % Nucleated RBC % PT with INR INR Sodium 144 Potassium 3.6 Chloride 112 H Carbon Dioxide 22 Anion Gap 9 BUN 44.5 H Creatinine 3.4 H Est GFR (CKD-EPI)AfAm 19.90 Est GFR (CKD-EPI)NonAf 17.17 POC Glucometer 187 141 Random Glucose 127 H Calcium 8.3 L Phosphorus 3.8 Magnesium 2.2 Total Bilirubin 0.3 AST 9 L ALT 16 Alkaline Phosphatase 98 Total Protein 6.3 L Albumin 2.9 L Urine Color Urine Appearance Urine pH Ur Specific [place] Urine Protein Urine Glucose (UA) Urine Ketones Urine Blood Urine Nitrite Urine Bilirubin Urine Urobilinogen Ur Leukocyte Esterase Urine WBC (Auto) Urine RBC (Auto) Urine Casts (Auto) U Pathogenic Cast Auto U Epithel Cells (Auto) Urine Bacteria (Auto) Urine Yeast (Auto) COVID-19 ([facility]) 01/05/20 01/05/20 01/05/20 07:10 11:11 16:37 WBC 7.4 RBC 3.46 L Hgb 9.2 L Hct 28.7 L MCV 83.0 MCH 26.7 MCHC 32.2 RDW 15.0 Plt Count 105 L MPV 11.5 H Absolute Neuts (auto) Neutrophils % Lymphocytes % Monocytes % Eosinophils % Basophils % Nucleated RBC % PT with INR INR Sodium Potassium Chloride Carbon Dioxide Anion Gap BUN Creatinine Est GFR (CKD-EPI)AfAm Est GFR (CKD-EPI)NonAf POC Glucometer 195 152 Random Glucose Calcium Phosphorus Magnesium Total Bilirubin AST ALT Alkaline Phosphatase Total Protein Albumin Urine Color Urine Appearance Urine pH Ur Specific [place] Urine Protein Urine Glucose (UA) Urine Ketones Urine Blood Urine Nitrite Urine Bilirubin Urine Urobilinogen Ur Leukocyte Esterase Urine WBC (Auto) Urine RBC (Auto) Urine Casts (Auto) U Pathogenic Cast Auto U Epithel Cells (Auto) Urine Bacteria (Auto) Urine Yeast (Auto) COVID-19 ([facility]) 01/05/20 01/06/20 01/06/20 21:41 06:16 08:10 WBC RBC Hgb Hct MCV MCH MCHC RDW Plt Count MPV Absolute Neuts (auto) Neutrophils % Lymphocytes % Monocytes % Eosinophils % Basophils % Nucleated RBC % PT with INR INR Sodium 143 Potassium 3.8 Chloride 114 H Carbon Dioxide 20 L Anion Gap 9 BUN 37.3 H Creatinine 3.0 H Est GFR (CKD-EPI)AfAm 23.15 Est GFR (CKD-EPI)NonAf 19.97 POC Glucometer 200 128 Random Glucose 122 H Calcium 8.7 Phosphorus 4.0 Magnesium 2.1 Total Bilirubin AST ALT Alkaline Phosphatase Total Protein Albumin Urine Color Urine Appearance Urine pH Ur Specific [place] Urine Protein Urine Glucose (UA) Urine Ketones Urine Blood Urine Nitrite Urine Bilirubin Urine Urobilinogen Ur Leukocyte Esterase Urine WBC (Auto) Urine RBC (Auto) Urine Casts (Auto) U Pathogenic Cast Auto U Epithel Cells (Auto) Urine Bacteria (Auto) Urine Yeast (Auto) COVID-19 ([facility]) 01/06/20 01/06/20 01/06/20 08:10 11:17 16:55 WBC 8.0 RBC 3.63 L Hgb 9.5 L Hct 29.5 L MCV 81.3 MCH 26.3 MCHC 32.3 RDW 14.5 Plt Count 131 L D MPV 11.0 Absolute Neuts (auto) Neutrophils % Lymphocytes % Monocytes % Eosinophils % Basophils % Nucleated RBC % PT with INR INR Sodium Potassium Chloride Carbon Dioxide Anion Gap BUN Creatinine Est GFR (CKD-EPI)AfAm Est GFR (CKD-EPI)NonAf POC Glucometer 155 153 Random Glucose Calcium Phosphorus Magnesium Total Bilirubin AST ALT Alkaline Phosphatase Total Protein Albumin Urine Color Urine Appearance Urine pH Ur Specific [place] Urine Protein Urine Glucose (UA) Urine Ketones Urine Blood Urine Nitrite Urine Bilirubin Urine Urobilinogen Ur Leukocyte Esterase Urine WBC (Auto) Urine RBC (Auto) Urine Casts (Auto) U Pathogenic Cast Auto U Epithel Cells (Auto) Urine Bacteria (Auto) Urine Yeast (Auto) COVID-19 ([facility]) 01/06/20 01/07/20 01/07/20 21:55 05:56 08:18 WBC 6.9 RBC 3.70 L Hgb 9.6 L Hct 30.0 L MCV 81.1 MCH 26.0 MCHC 32.0 RDW 14.4 Plt Count 136 MPV 11.0 Absolute Neuts (auto) 4.5 Neutrophils % 65.4 Lymphocytes % 21.6 D Monocytes % 7.3 Eosinophils % 4.8 H D Basophils % 0.9 Nucleated RBC % 0 PT with INR INR Sodium Potassium Chloride Carbon Dioxide Anion Gap BUN Creatinine Est GFR (CKD-EPI)AfAm Est GFR (CKD-EPI)NonAf POC Glucometer 135 133 Random Glucose Calcium Phosphorus Magnesium Total Bilirubin AST ALT Alkaline Phosphatase Total Protein Albumin Urine Color Urine Appearance Urine pH Ur Specific [place] Urine Protein Urine Glucose (UA) Urine Ketones Urine Blood Urine Nitrite Urine Bilirubin Urine Urobilinogen Ur Leukocyte Esterase Urine WBC (Auto) Urine RBC (Auto) Urine Casts (Auto) U Pathogenic Cast Auto U Epithel Cells (Auto) Urine Bacteria (Auto) Urine Yeast (Auto) COVID-19 ([facility]) 01/07/20 01/07/20 01/07/20 08:18 08:18 11:13 WBC RBC Hgb Hct MCV MCH MCHC RDW Plt Count MPV Absolute Neuts (auto) Neutrophils % Lymphocytes % Monocytes % Eosinophils % Basophils % Nucleated RBC % PT with INR 10.80 INR 0.92 Sodium 142 Potassium 3.6 Chloride 112 H Carbon Dioxide 21 Anion Gap 9 BUN 36.2 H Creatinine 2.8 H Est GFR (CKD-EPI)AfAm 25.16 Est GFR (CKD-EPI)NonAf 21.71 POC Glucometer 118 Random Glucose 128 H Calcium 8.8 Phosphorus 4.2 Magnesium 2.1 Total Bilirubin AST ALT Alkaline Phosphatase Total Protein Albumin Urine Color Urine Appearance Urine pH Ur Specific [place] Urine Protein Urine Glucose (UA) Urine Ketones Urine Blood Urine Nitrite Urine Bilirubin Urine Urobilinogen Ur Leukocyte Esterase Urine WBC (Auto) Urine RBC (Auto) Urine Casts (Auto) U Pathogenic Cast Auto U Epithel Cells (Auto) Urine Bacteria (Auto) Urine Yeast (Auto) COVID- ([facility]) 01/07/20 01/07/20 01/08/20 15:49 21:08 06:13 WBC RBC Hgb Hct MCV MCH MCHC RDW Plt Count MPV Absolute Neuts (auto) Neutrophils % Lymphocytes % Monocytes % Eosinophils % Basophils % Nucleated RBC % PT with INR INR Sodium Potassium Chloride Carbon Dioxide Anion Gap BUN Creatinine Est GFR (CKD-EPI)AfAm Est GFR (CKD-EPI)NonAf POC Glucometer 158 230 119 Random Glucose Calcium Phosphorus Magnesium Total Bilirubin AST ALT Alkaline Phosphatase Total Protein Albumin Urine Color Urine Appearance Urine pH Ur Specific [place] Urine Protein Urine Glucose (UA) Urine Ketones Urine Blood Urine Nitrite Urine Bilirubin Urine Urobilinogen Ur Leukocyte Esterase Urine WBC (Auto) Urine RBC (Auto) Urine Casts (Auto) U Pathogenic Cast Auto U Epithel Cells (Auto) Urine Bacteria (Auto) Urine Yeast (Auto) COVID- ([facility]) 01/08/20 01/08/20 01/08/20 07:07 07:07 11:07 WBC 8.8 RBC 3.42 L Hgb 9.0 L Hct 27.9 L MCV 81.7 MCH 26.4 MCHC 32.3 RDW 14.7 Plt Count 127 L MPV 10.5 Absolute Neuts (auto) Neutrophils % Lymphocytes % Monocytes % Eosinophils % Basophils % Nucleated RBC % PT with INR INR Sodium 141 Potassium 4.0 Chloride 111 H Carbon Dioxide 22 Anion Gap 8 BUN 42.8 H Creatinine 3.4 H Est GFR (CKD-EPI)AfAm 19.90 Est GFR (CKD-EPI)NonAf 17.17 POC Glucometer 204 Random Glucose 118 H Calcium 8.2 L Phosphorus 5.4 H Magnesium 2.3 Total Bilirubin AST ALT Alkaline Phosphatase Total Protein Albumin Urine Color Urine Appearance Urine pH Ur Specific [place] Urine Protein Urine Glucose (UA) Urine Ketones Urine Blood Urine Nitrite Urine Bilirubin Urine Urobilinogen Ur Leukocyte Esterase Urine WBC (Auto) Urine RBC (Auto) Urine Casts (Auto) U Pathogenic Cast Auto U Epithel Cells (Auto) Urine Bacteria (Auto) Urine Yeast (Auto) COVID-19 ([facility]) 01/08/20 01/08/20 01/09/20 16:43 21:10 06:10 WBC RBC Hgb Hct MCV MCH MCHC RDW Plt Count MPV Absolute Neuts (auto) Neutrophils % Lymphocytes % Monocytes % Eosinophils % Basophils % Nucleated RBC % PT with INR INR Sodium Potassium Chloride Carbon Dioxide Anion Gap BUN Creatinine Est GFR (CKD-EPI)AfAm Est GFR (CKD-EPI)NonAf POC Glucometer 188 208 208 Random Glucose Calcium Phosphorus Magnesium Total Bilirubin AST ALT Alkaline Phosphatase Total Protein Albumin Urine Color Urine Appearance Urine pH Ur Specific [place] Urine Protein Urine Glucose (UA) Urine Ketones Urine Blood Urine Nitrite Urine Bilirubin Urine Urobilinogen Ur Leukocyte Esterase Urine WBC (Auto) Urine RBC (Auto) Urine Casts (Auto) U Pathogenic Cast Auto U Epithel Cells (Auto) Urine Bacteria (Auto) Urine Yeast (Auto) COVID-19 ([facility]) 01/09/20 01/09/20 01/09/20 07:35 07:35 11:33 WBC 7.7 RBC 3.32 L Hgb 8.7 L Hct 27.0 L MCV 81.3 MCH 26.1 MCHC 32.1 RDW 14.6 Plt Count 126 L MPV 10.5 Absolute Neuts (auto) Neutrophils % Lymphocytes % Monocytes % Eosinophils % Basophils % Nucleated RBC % PT with INR INR Sodium 144 Potassium 3.9 Chloride 114 H Carbon Dioxide 21 Anion Gap 9 BUN 43.0 H Creatinine 3.1 H Est GFR (CKD-EPI)AfAm 22.25 Est GFR (CKD-EPI)NonAf 19.20 POC Glucometer 182 Random Glucose 172 H Calcium 8.1 L Phosphorus 4.0 Magnesium 2.2 Total Bilirubin AST ALT Alkaline Phosphatase Total Protein Albumin Urine Color Urine Appearance Urine pH Ur Specific [place] Urine Protein Urine Glucose (UA) Urine Ketones Urine Blood Urine Nitrite Urine Bilirubin Urine Urobilinogen Ur Leukocyte Esterase Urine WBC (Auto) Urine RBC (Auto) Urine Casts (Auto) U Pathogenic Cast Auto U Epithel Cells (Auto) Urine Bacteria (Auto) Urine Yeast (Auto) COVID-19 ([facility]) 01/09/20 01/09/20 01/10/20 16:57 21:14 06:09 WBC RBC Hgb Hct MCV MCH MCHC RDW Plt Count MPV Absolute Neuts (auto) Neutrophils % Lymphocytes % Monocytes % Eosinophils % Basophils % Nucleated RBC % PT with INR INR Sodium Potassium Chloride Carbon Dioxide Anion Gap BUN Creatinine Est GFR (CKD-EPI)AfAm Est GFR (CKD-EPI)NonAf POC Glucometer 180 190 205 Random Glucose Calcium Phosphorus Magnesium Total Bilirubin AST ALT Alkaline Phosphatase Total Protein Albumin Urine Color Urine Appearance Urine pH Ur Specific [place] Urine Protein Urine Glucose (UA) Urine Ketones Urine Blood Urine Nitrite Urine Bilirubin Urine Urobilinogen Ur Leukocyte Esterase Urine WBC (Auto) Urine RBC (Auto) Urine Casts (Auto) U Pathogenic Cast Auto U Epithel Cells (Auto) Urine Bacteria (Auto) Urine Yeast (Auto) COVID-19 ([facility]) 01/10/20 01/10/20 01/10/20 11:23 13:07 13:07 WBC 8.8 RBC 3.53 L Hgb 9.4 L Hct 28.9 L MCV 81.8 MCH 26.5 MCHC 32.4 RDW 14.6 Plt Count 154 D MPV 10.9 Absolute Neuts (auto) Neutrophils % Lymphocytes % Monocytes % Eosinophils % Basophils % Nucleated RBC % PT with INR INR Sodium 141 Potassium 4.3 Chloride 111 H Carbon Dioxide 22 Anion Gap 9 BUN 37.0 H Creatinine 3.0 H Est GFR (CKD-EPI)AfAm 23.15 Est GFR (CKD-EPI)NonAf 19.97 POC Glucometer 166 Random Glucose 214 H Calcium 8.4 L Phosphorus 3.2 Magnesium 2.0 Total Bilirubin AST ALT Alkaline Phosphatase Total Protein Albumin Urine Color Urine Appearance Urine pH Ur Specific [place] Urine Protein Urine Glucose (UA) Urine Ketones Urine Blood Urine Nitrite Urine Bilirubin Urine Urobilinogen Ur Leukocyte Esterase Urine WBC (Auto) Urine RBC (Auto) Urine Casts (Auto) U Pathogenic Cast Auto U Epithel Cells (Auto) Urine Bacteria (Auto) Urine Yeast (Auto) COVID-19 ([facility]) 01/10/20 01/10/20 01/11/20 17:18 21:04 06:09 WBC RBC Hgb Hct MCV MCH MCHC RDW Plt Count MPV Absolute Neuts (auto) Neutrophils % Lymphocytes % Monocytes % Eosinophils % Basophils % Nucleated RBC % PT with INR INR Sodium Potassium Chloride Carbon Dioxide Anion Gap BUN Creatinine Est GFR (CKD-EPI)AfAm Est GFR (CKD-EPI)NonAf POC Glucometer 203 193 161 Random Glucose Calcium Phosphorus Magnesium Total Bilirubin AST ALT Alkaline Phosphatase Total Protein Albumin Urine Color Urine Appearance Urine pH Ur Specific [place] Urine Protein Urine Glucose (UA) Urine Ketones Urine Blood Urine Nitrite Urine Bilirubin Urine Urobilinogen Ur Leukocyte Esterase Urine WBC (Auto) Urine RBC (Auto) Urine Casts (Auto) U Pathogenic Cast Auto U Epithel Cells (Auto) Urine Bacteria (Auto) Urine Yeast (Auto) COVID-19 ([facility]) 01/11/20 01/11/20 01/11/20 07:30 07:30 11:32 WBC 9.1 RBC 3.41 L Hgb 8.9 L Hct 27.6 L MCV 80.9 MCH 26.1 MCHC 32.3 RDW 15.0 Plt Count 142 MPV 10.6 Absolute Neuts (auto) Neutrophils % Lymphocytes % Monocytes % Eosinophils % Basophils % Nucleated RBC % PT with INR INR Sodium 141 Potassium 3.7 Chloride 113 H Carbon Dioxide 21 Anion Gap 8 BUN 34.2 H Creatinine 2.8 H Est GFR (CKD-EPI)AfAm 25.16 Est GFR (CKD-EPI)NonAf 21.71 POC Glucometer 151 Random Glucose 133 H Calcium 8.5 Phosphorus 3.7 Magnesium 2.0 Total Bilirubin AST ALT Alkaline Phosphatase Total Protein Albumin Urine Color Urine Appearance Urine pH Ur Specific [place] Urine Protein Urine Glucose (UA) Urine Ketones Urine Blood Urine Nitrite Urine Bilirubin Urine Urobilinogen Ur Leukocyte Esterase Urine WBC (Auto) Urine RBC (Auto) Urine Casts (Auto) U Pathogenic Cast Auto U Epithel Cells (Auto) Urine Bacteria (Auto) Urine Yeast (Auto) COVID-19 ([facility]) 01/11/20 17:26 WBC RBC Hgb Hct MCV MCH MCHC RDW Plt Count MPV Absolute Neuts (auto) Neutrophils % Lymphocytes % Monocytes % Eosinophils % Basophils % Nucleated RBC % PT with INR INR Sodium Potassium Chloride Carbon Dioxide Anion Gap BUN Creatinine Est GFR (CKD-EPI)AfAm Est GFR (CKD-EPI)NonAf POC Glucometer 156 Random Glucose Calcium Phosphorus Magnesium Total Bilirubin AST ALT Alkaline Phosphatase Total Protein Albumin Urine Color Urine Appearance Urine pH Ur Specific [place] Urine Protein Urine Glucose (UA) Urine Ketones Urine Blood Urine Nitrite Urine Bilirubin Urine Urobilinogen Ur Leukocyte Esterase Urine WBC (Auto) Urine RBC (Auto) Urine Casts (Auto) U Pathogenic Cast Auto U Epithel Cells (Auto) Urine Bacteria (Auto) Urine Yeast (Auto) COVID-19 ([facility]) HOSPITAL COURSE: Patient came in with increasing left sided flank pain and hematuria. Was found to have L ureteral stricture with hydronephrosis. Patient has a history of previous L ureteral stent. Patient underwent procedure in which his previous stent was exchanged. 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 Previous stent most likely failed due to hx of radiation from previous prostate cancer. Patient was monitored for a few days after surgery due to hematuria and increase BUN/Cr. Patient was given fluids and his levels improved to baseline. Patient is to follow up with Dr. Loredo outpatient after discharge. Appointment was made. Date of Admission:01/03/20 Date of Discharge: 01/11/20 Minutes to complete discharge: 39 Discharge Summary Problems reviewed: Yes Reason For Visit: UTI Current Active Problems CKD (chronic kidney disease) (Acute) Hematuria (Acute) Ureterovesical junction (UVJ) obstruction (Acute) Urinary retention (Acute) History of urethral stent (Chronic) Condition: Stable - Instructions Diet, Activity, Other Instructions: You presented to the ED with pain and blood in your urine. You were started on IV antibiotics. You had a procedure in which and old ureteral stent was exchanged for a new one. You had some blood in your urine after the procedure so we were monitoring you for a few days after the procedure. You will be going home with the valero catheter. Please follow up with Dr. Toni Jackson in on Tuesday (01/14) to have the valero removed. Medication Continue home medications as prescribed Follow up See Facundo on Tuesday for valero removable. See your primary care doctor in 1-2 weeks for follow up and medication reconciliation If you experience severe pain, fever, chills, increased darkening of your urine please go to the emergency room. Referrals: Jacques Loredo MD [Staff Physician] - 01/16/20 9:00 am Disposition: HOME - Home Medications Comprehensive Discharge Medication List: Ambulatory Orders Amlodipine Besylate [Norvasc -] 10 mg PO DAILY 05/11/19 Hydralazine HCl 100 mg PO TID 05/11/19 Labetalol HCl [Normodyne -] 300 mg PO BID 05/11/19 Albuterol Sulfate Inhaler - [Ventolin HFA Inhaler -] 1 - 2 inh PO Q4H 05/14/19 Bromfenac Sodium [Prolensa] 3 ml OD DAILY 05/14/19 Furosemide [Lasix -] 40 mg PO DAILY tablet 05/14/19 Insulin (Levemir) [Levemir Vial] 35 units SQ ONCE 05/14/19 Insulin Sliding Scale [Novolog Vial Sliding Scale -] 10 units SQ BID 05/14/19 Prednisolone 1% Ophthalmic [Pred Forte 1% -] 1 drop OD QID 05/14/19 Atorvastatin Calcium [Lipitor] 40 mg PO DAILY 01/04/20 Gabapentin 400 mg PO BID 01/04/20 Aspirin [Aspirin EC] 81 mg PO DAILY 01/05/20 Latanoprost 0.005% Eye Drops [Xalatan 0.005% Eye Drops -] 1 drop HS 01/10/20 Omeprazole/Sodium Bicarbonate [Omeprazole-Bicarb 20-1,680 Pkt] 1 pkt PO BID 01/10/20 Acetaminophen [Tylenol .Regular Strength -] 650 mg PO Q4H PRN tablet 01/11/20 Carvedilol [Coreg -] 25 mg PO BID tablet 01/11/20 Gabapentin [Neurontin -] 300 mg PO BID capsule 01/11/20 Pantoprazole Sodium [Protonix -] 20 mg PO DAILY tablet.ec 01/11/20 This patient is new to me today: No Date on this admission: 01/03/20 Emergency Visit: Yes ED Registration Date: 01/03/20 Care time: The patient presented to the Emergency Department on the above date and was hospitalized for further evaluation of their emergent condition. Critical Care patient: No - Discharge Referral Referred to [facility] No ATTENDING PHYSICIAN STATEMENT I saw and evaluated the patient. I reviewed the resident's note and discussed the case with the resident. I agree with the resident's findings and plan as documented. SUBJECTIVE: OBJECTIVE: ASSESSMENT AND PLAN:
[2020-01-11 18:27] VITALS: BP 147/69; TEMP 97.9
== END 2020-01-11 20:25 | disposition home or self-care (01) | DRG 660 ==
LOC: JER 11:08 → JERBED 19:18 → J5S 23:38
PROVIDERS: ADMIT Internal Medicine; ATTEND Internal Medicine
PROC: 0T778DZ Dilation of Left Ureter with Intraluminal Device, Via Natural or Artificial Opening Endoscopic (ICD-10-PCS; 2020-01-07)
PROC: 0TPD8DZ Removal of Intraluminal Device from Urethra, Via Natural or Artificial Opening Endoscopic (ICD-10-PCS; 2020-01-07)
PROC: BT1FZZZ Fluoroscopy of Left Kidney, Ureter and Bladder (ICD-10-PCS; 2020-01-07)
PROC: 0TB78ZZ Excision of Left Ureter, Via Natural or Artificial Opening Endoscopic (ICD-10-PCS; principal; 2020-01-07 18:30)
PROC: 0T5C8ZZ Destruction of Bladder Neck, Via Natural or Artificial Opening Endoscopic (ICD-10-PCS; 2020-01-07 18:30)
DX: N99.114 Postprocedural urethral stricture, male, unspecified (principal); N13.6 Pyonephrosis; N17.9 Acute kidney failure, unspecified; I13.10 Hypertensive heart and chronic kidney disease without heart failure, with stage 1 through stage 4 chronic kidney disease, or unspecified chronic kidney disease; I25.10 Atherosclerotic heart disease of native coronary artery without angina pectoris; E11.9 Type 2 diabetes mellitus without complications; D69.6 Thrombocytopenia, unspecified; N18.2 Chronic kidney disease, stage 2 (mild); D63.1 Anemia in chronic kidney disease; T83.511D Infection and inflammatory reaction due to indwelling urethral catheter, subsequent encounter; Y83.9 Surgical procedure, unspecified as the cause of abnormal reaction of the patient, or of later complication, without mention of misadventure at the time of the procedure; Y84.2 Radiological procedure and radiotherapy as the cause of abnormal reaction of the patient, or of later complication, without mention of misadventure at the time of the procedure; E03.9 Hypothyroidism, unspecified
CPT/HCPCS: 36415; 74176-TC; 76000-TC-FY; 80048; 80053; 81003; 82962; 83735; 84100; 85025; 85027; 85610; 87040; 87086; 88300-TC; 93005; 93010; 93970-TC; 94760; 99285-25; J0131; J1644; U0003

== ENCOUNTER 2020-04-02 22:18 | Emergency (ER) | payer MEDICARE, OTHER ==
[2020-04-02 22:28] VITALS: BP 152/74; PULSE 71; TEMP 98; BMI 26.2
--- NOTE | 2020-04-02 23:54 | PDOC ---
History of Present Illness - General Chief Complaint: Blood Sugar Problem Stated Complaint: BLOOD SUGAR PROBLEM Time Seen by Provider: 04/02/20 23:53 Past History - Medical History Allergies/Adverse Reactions: Allergies Allergy/AdvReac Type Severity Reaction Status Date / Time lisinopril Allergy Severe Swelling Verified 02/09/20 06:06 Home Medications: Ambulatory Orders Amlodipine Besylate [Norvasc -] 10 mg PO DAILY 05/11/19 Hydralazine HCl 100 mg PO TID 05/11/19 Labetalol HCl [Normodyne -] 300 mg PO BID 05/11/19 Albuterol Sulfate Inhaler - [Ventolin HFA Inhaler -] 1 - 2 inh PO Q4H 05/14/19 Bromfenac Sodium [Prolensa] 3 ml OD DAILY 05/14/19 Furosemide [Lasix -] 40 mg PO DAILY tablet 05/14/19 Insulin (Levemir) [Levemir Vial] 35 units SQ ONCE 05/14/19 Insulin Sliding Scale [Novolog Vial Sliding Scale -] 10 units SQ BID 05/14/19 Prednisolone 1% Ophthalmic [Pred Forte 1% -] 1 drop OD QID 05/14/19 Atorvastatin Calcium [Lipitor] 40 mg PO DAILY 01/04/20 Gabapentin 400 mg PO BID 01/04/20 Aspirin [Aspirin EC] 81 mg PO DAILY 01/05/20 Latanoprost 0.005% Eye Drops [Xalatan 0.005% Eye Drops -] 1 drop HS 01/10/20 Omeprazole/Sodium Bicarbonate [Omeprazole-Bicarb 20-1,680 Pkt] 1 pkt PO BID 01/10/20 Acetaminophen [Tylenol .Regular Strength -] 650 mg PO Q4H PRN tablet 01/11/20 Carvedilol [Coreg -] 25 mg PO BID tablet 01/11/20 Gabapentin [Neurontin -] 300 mg PO BID capsule 01/11/20 Pantoprazole Sodium [Protonix -] 20 mg PO DAILY tablet.ec 01/11/20 Anemia: Yes (?) Asthma: Yes Cancer: Yes (prostate, CHEMO) Cardiac Disorders: Yes ([place]: 2012, CARDIAC STENTING) CVA: No COPD: No CHF: No Dementia: No Diabetes: Yes GI Disorders: Yes (GERD, diverticulitis) Disorders: Yes HTN: Yes Hypercholesterolemia: Yes Liver Disease: No Seizures: No Thyroid Disease: No - Surgical History Abdominal Surgery: No Appendectomy: No Cardiac Surgery: No Cholecystectomy: No Lung Surgery: No Neurologic Surgery: No Orthopedic Surgery: No - Immunization History Immunization Up to Date: Yes - Psycho-Social/Smoking History Smoking Status: No Smoking History: Never smoked Have you smoked in the past 12 months: No Number of Cigarettes Smoked Daily: 0 If you are a former smoker, when did you quit?: 1 YEAR AGO 'Breaking Loose' booklet given: 09/06/17 - Substance Abuse Hx (Audit-C & DAST Scrn) How often the patient has a drink containing alcohol: Never Score: In Men: 4 or > Positive; In Women: 3 or > Positive: 0 Screen Result (Pos requires Nsg. Audit-10AR): Negative In the last yr the pt used illegal drug/Rx for NonMed reason: No Score: Yes response is considered Positive: 0 Screen Result (Positive result requires Nsg. DAST-10): Negative *Physical Exam - Vital Signs Last Vital Signs Temp Pulse Resp BP Pulse Ox 98 F 71 19 152/74 100 04/02/20 22:19 04/02/20 22:19 04/02/20 22:19 04/02/20 22:19 04/02/20 22:19 ED Treatment Course - LABORATORY CBC & Chemistry Diagram: 04/03/20 00:45 04/03/20 00:45 - ADDITIONAL ORDERS Additional order review: Laboratory Results 04/02/20 22:25 POC Glucometer 57 04/02/20 22:25 POC Glucometer 57 Medical Decision Making - Medical Decision Making 04/03/20 00:18 HTN, IDDM, HLD, CAD, and CKD (no dialysis but under discussion), left ureteral stricture with left hydronephrosis s/p repair (12/2019), penile implant, and prostate cancer s/p radiation Usual 30 levemir in AM, eats dinner then checks sugar then gives self novolog per directions. Logs sugars and doses but left at home. USOH today. Ate dinner, checked sugar 180, took "1.6" novolog, went to bed. Woke up short of breath, dizzy, and blurry vision. Checked sugar and 40 so drank juice and came here. In triage 57 so had more juice. Now feels fine, BGM 121, asymptomatic. Endorses chronic hematuria unchanged. PCP - Shivam, Um Endo - Uro - 04/03/20 02:06 04/03/20 03:27 BGM 147 Urine - follow UC Labs EKG CXR Still asymptomatic Discharge Discharge - Discharge Information Problems reviewed: Yes Clinical Impression/Diagnosis: CKD (chronic kidney disease), Hypoglycemia Condition: Improved Disposition: HOME - Admission No - Follow up/Referral Referrals: Shine Langley MD [Primary Care Provider] - - Patient Discharge Instructions Patient Printed Discharge Instructions: DI for Hypoglycemia Additional Instructions: You have been seen in the Emergency Department for your low sugar. Your EKG, chest X-ray, and labs, including Troponin (a heart enzyme), show no signs concerning for an emergent condition such as a heart attack or pneumonia. You do have chronic kidney disease and you need to follow-up with all your doctors, including your kidney doctor (death claim examiner), urologist, funeral arranger (diabetes doctor), and primary care doctor. Call them today to make follow-up appointments for this week. Return to the Emergency Department immediately if you experience chest pain, difficulty breathing, passing out, low sugar, or any other new or worsening symptom. Lo burden visto en el Departamento de Emergencias por vaz bajo nivel de azcar. Vaz electrocardiograma, radiografa de trax y anlisis de laboratorio, incluida la troponina (geni enzima cardaca), no muestran signos de geni afeccin emergente, elio un ataque cardaco o neumona. Tiene geni enfermedad renal crnica y necesita hacer un seguimiento con todos deyanira mdicos, incluido vaz mdico de rin (nefrlogo), urlogo, endocrinlogo (mdico de diabetes) y mdico de atencin primaria. Llmelos hoy para programar citas de seguimiento para esta semana. Regrese al Departamento de Emergencias de inmediato si experimenta dolor en el p echo, dificultad para respirar, desmayo, bajo nivel de azcar o cualquier otro sntoma nuevo o que empeora. - Post Discharge Activity
[2020-04-03 01:21] LABS: BASO % 0.8 % (0-2.0); EOS % 2.8 % (0-4.5); HEMOGLOBIN 9.1 GM/dL (11.7-16.9); LYMPH % 17.1 % (8-40); MCH 26.6 pg (25.7-33.7); MCHC 32.4 g/dl (32.0-35.9); MEAN CELL VOLUME 82.1 fl (80-96); MEAN PLT VOLUME 10.8 fl (7.5-11.1); MONO % 8.4 % (3.8-10.2); NEUT % 70.9 % (42.8-82.8); PLATELET COUNT 114 K/MM3 (134-434); RBC 3.41 M/mm3 (4.00-5.60); RDW 16.2 % (11.9-15.9); WHITE BLOOD COUNT 8.5 K/mm3 (4.0-10.0)
--- NOTE | 2020-04-03 01:46 | PDOC ---
Attending Attestation - Resident Resident Name: EmjenniferAlexus - ED Attending Attestation I have performed the following: I have examined & evaluated the patient, The case was reviewed & discussed with the resident, I agree w/resident's findings & plan, Exceptions are as noted - HPI HPI: 04/03/20 00:58 69yo male with hx of dm and ckd presents for eval of sob tonight and hypoglycemia. States he uses his "soft insulin" in the AM and then after checking his glucose after his meal at night he uses his "hard insulin". Suspect levemir is used in the AM and novolog is used at nighttime. States his glu was 187, states he used "1.6" of his insulin tonight. States he developed sob and blurred vision and glu when checked it was 40. Pt denies cp/sob at this time. No blurred vision at this time. Pt was sleeping and easily arousable when in terviewed. - Physicial Exam PE: 04/03/20 01:00 Gen: aaox3, nad heart: +s1s2 reg lungs: cta b/l abd: soft, nt/nd +bs, obese ext: no c/c/e - Medical Decision Making 04/03/20 01:46 a/p: 69yo male with dm with low glu tonight -given juice in triage and glu 121 -will send labs, ekg, cxr, ua -will monitor and reassess -if glu stays stable while in the ER and all symptoms have resolved will be stable for dc to home 04/03/20 02:13 cr at baseline glu 102 04/03/20 02:13 trop 0.03 04/03/20 02:13 pt pending sodium, potassium pt signed out pending labs, xray Heart Score/ECG Review - ECG Intrepretation Comment:: 04/03/20 01:46 sinus at 68, 1st degree av block, nl axis, q waves anterior leads which are age indeterminate, abnl ekg Discharge - Discharge Information Problems reviewed: Yes Clinical Impression/Diagnosis: CKD (chronic kidney disease), Hypoglycemia - Follow up/Referral Referrals: Shine Langley MD [Primary Care Provider] - - Patient Discharge Instructions - Post Discharge Activity
[2020-04-03 02:01] LABS: ALBUMIN 3.6 g/dl (3.4-5.0); BILIRUBIN,TOTAL 0.3 mg/dL (0.2-1); BLOOD UREA NITROGEN 34.8 mg/dL (7-18); CALCIUM 8.3 mg/dL (8.5-10.1); CREATININE 3.2 mg/dL (0.55-1.3)
[2020-04-03 02:22] LABS: POTASSIUM 3.8 mmol/L (3.5-5.1)
[2020-04-03 02:38] LABS: EPI CELLS >36 /uL (0-25.1); HYALINE CASTS 2 /uL (0-3.1); URINE APPEARANCE CLEAR; URINE BACTERIA 42 /uL (0-1359); URINE BILIRUBIN NEGATIVE (NEGATIVE); URINE COLOR YELLOW; URINE GLUCOSE (UA) NEGATIVE (NEGATIVE); URINE KETONE NEGATIVE (NEGATIVE); URINE LEUK ESTERASE 2+ (NEGATIVE); URINE NITRITE NEGATIVE (NEGATIVE); URINE PROTEIN 2+ (NEGATIVE); URINE RBC 9 /uL (0-23.9); URINE UROBILINOGEN 0.2 mg/dL (0.2-1.0); URINE WBC 244 /uL (0-25.8)
--- OUTSIDE RECORDS SUMMARY | 2020-04-03 06:35 | XMS ---
:1950 Author Organization [facility] Care Team Providers Name Role Phone LUZ NUGENT Unavailable Unavailable Kamron Hebert MD Unavailable Unavailable Kamron Hebert MD Unavailable Unavailable Kamron Hebert MD Unavailable Unavailable Kamron Hebert MD Unavailable Unavailable Kamron Hebert MD Unavailable Unavailable Kamron Hebert MD Unavailable Unavailable Kamron Hebert MD Unavailable Unavailable Kamron Hebert MD Unavailable Unavailable JESSICA CRUZ Unavailable Unavailable DIANEPRISCILLA TRIPLETT Unavailable Unavailable Tim Villalpando Unavailable [phone] ED STAFF PHYSICIAN, STAFF Unavailable Unavailable Carmita, Osama Unavailable Unavailable Carmita, Osama Unavailable Unavailable Carmita, Osama Unavailable Unavailable Carmita, Osama Unavailable Unavailable Carmita, Osama Unavailable Unavailable Carmita, Osama Unavailable Unavailable Carmita, Osama Unavailable Unavailable Carmita, Osama Unavailable Unavailable Carmita, Osama Unavailable Unavailable Carmita, Osama Unavailable Unavailable Carmita, Osama Unavailable Unavailable Carmita, Osama Unavailable Unavailable Carmita, Osama Unavailable Unavailable Carmita, Osama Unavailable Unavailable Carmita, Osama Unavailable Unavailable Re-disclosure Warning The records that you are about to access may contain information from federally- assisted alcohol or drug abuse programs. If such information is present, then the following federally mandated warning applies: This information has been disclosed to you from records protected by federal confidentiality rules (42 CFR part 2). The federal rules prohibit you from making any further disclosure of this information unless further disclosure is expressly permitted by the written consent of the person to whom it pertains or as otherwise permitted by 42 CFR part 2. A general authorization for the release of medical or other information is NOT sufficient for this purpose. The Federal rules restrict any use of the information to criminally investigate or prosecute any alcohol or drug abuse patient.The records that you are about to access may contain highly sensitive health information, the redisclosure of which is protected by Article 27-F of the [facility] Public Health law. If you continue you may haveaccess to information: Regarding HIV / AIDS; Provided by facilities licensed or operated by the [facility] Office of Mental Health; or Provided by the [facility] Office for People With Developmental Disabilities. If such information is present, then the following [facility] mandated warning applies: This information has been disclosed to you from confidential records which are protected by state law. State law prohibits you from making any further disclosure of this information without the specific written consent of the person to whom it pertains, or as otherwise permitted by law. Any unauthorized further disclosure in violation of state law may result in a fine or assisted sentence or both. A general authorization for the release of medical or other information is NOT sufficient authorization for further disclosure. Allergies and Adverse Reactions Type Description Substance Reaction Status Data Source(s ) lisinopril lisinopril lisinopril Unknown Active eCW1 ([facility]) lisinopril lisinopril lisinopril Unknown Active eCW1 ([facility]) lisinopril lisinopril lisinopril Unknown Active eCW1 ([facility]) lisinopril lisinopril lisinopril Unknown Active eCW1 ([facility]) lisinopril lisinopril lisinopril Unknown Active eCW1 ([facility]) Encounters Encounter Providers Location Date Indications Data Source(s ) Outpatient [address] 04/01/2020 eCW1 ([facility] 12:00:00 [facility] AM EDT Practice PC) (TEL) [address] 03/27/2020 eCW1 ([facility] 12:00:00 [facility] AM EDT Practice PC) (TEL) [address] 03/21/2020 eCW1 ([facility] 12:00:00 [facility] AM EDT Practice PC) Outpatient 03/04/2020 [facility] 12:40:00 Medical Center PM EDT Outpatient Attender: H 03/04/2020 [facility] Kamron Hebert 08:35:00 Medical C enter MDAdmitter: AM EDT Kamron Hebert MDReferrer: Kamron Hebert MD Attender: Tim 03/04/2020 [facility] ( [facility] 08:35:00 [facility] AM EDT - Center) 03/04/2020 08:35:00 AM EDT Outpatient [address] 03/04/2020 eCW1 ([facility] 12:00:00 [facility] AM EDT Practice PC) Outpatient 03/04/2020 [facility] 12:00:00 Medical Center AM EDT Outpatient [address] 02/06/2020 eCW1 ([facility] 12:00:00 [facility] AM EDT Practice PC) Outpatient [address] 01/30/2020 eCW1 ([facility] 12:00:00 [facility] AM EDT Practice PC) Outpatient [address] 01/22/2020 eCW1 ([facility] 12:00:00 [facility] AM EDT Practice PC) Outpatient Attender: Osama H 01/02/2020 [facility] ephs SayeghAdmitter: 12:48:00 Medical C enter Osama PM EDT SayeghReferrer: Osama Carmita Outpatient [address] 01/02/2020 eCW1 ([facility] 12:00:00 [facility] AM EDT Practice PC) (TEL) [address] 12/19/2019 eCW1 ([facility] 12:00:00 [facility] AM EDT Practice PC) Outpatient [address] 12/03/2019 eCW1 ([facility] 12:00:00 [facility] AM EDT Practice PC) [address] [address] 11/07/2019 [facility] [address] [address] 11/01/2019 [facility] Emergency Attender: PRISCILLA Crockett 08/27/2019 [facility] 08:55:00 Medical Center CHILDEBERTAttend AM EST - er: STAFF ED 08/28/2019 STAFF 06:22:00 PHYSICIANAdmitte PM EST r: STAFF ED STAFF PHYSICIAN Patient discharged. [address] [address] 08/14/2019 eCW1 ([facility] 12:00:00 AM EST [facility]) [address] [address] 07/26/2019 eCW1 ([facility] 12:00:00 AM EST [facility]) Outpatient Attender: Kamron Crockett 07/17/2019 [facility] 10:33:00 AM EST Medical C enter MDAdmitter: Kamron Hebert MDReferrer: Kamron Hebert MD Attender: Tim 07/17/2019 [facility] ( [facility] 10:33:00 AM EST [facility] 07/17/2019 Center) 10:33:00 AM EST Outpatient 07/17/2019 [facility] 09:54:00 AM EST Medical C enter [address] [place] [address] 07/17/2019 eCW1 ([facility] 12:00:00 AM [facility]) Outpatient 07/17/2019 [facility] 12:00:00 AM EST Medical C enter (TEL) [address] [facility] 07/06/2019 eCW1 ([facility] 12:00:00 AM EST [facility]) [address] [address] 06/28/2019 eCW1 ([facility] 12:00:00 AM EST [facility]) [address] [address] 06/12/2019 [facility] AM EST [facility]) Outpatient 06/05/2019 [facility] 11:48:00 AM EST Medical C enter Outpatient Attender: Kamron Crockett 06/05/2019 [facility] 09:17:00 AM EST Medical C enter MDAdmitter: Kamron Hebert MDReferrer: Kamron Hebert MD Attender: [facility] 06/05/2019 [facility] ( [facility] 09:17:[address] [facility] 06/05/2019 [place]) 09:17:00 AM EST Outpatient [address] 06/05/2019 eCW1 ([facility] 12:00:00 AM EST [facility]) Outpatient 06/05/2019 [facility] 12:00:00 AM EST Medical C enter Outpatient 05/30/2019 [facility] 10:17:00 AM EST Medical C enter Outpatient 05/30/2019 [facility] 12:00:00 AM EST Medical C enter [address] 05/29/2019 eCW1 ([facility] 12:00:00 AM EST [facility]) Outpatient 05/15/2019 [facility] 12:36:00 PM EST Medical C enter Outpatient Attender: Kamron Crockett 05/15/2019 [facility] 09:26:00 AM EST Medical C enter MDAdmitter: Kamron Hebert MDReferrer: Kamron Hebert MD Attender: [facility] 05/15/2019 [facility] ( [facility] 09:26:[address] [facility] 05/15/2019 [place]) 09:26:00 AM EST [address] 05/15/2019 eCW1 ([facility] 12:00:00 AM [facility]) Outpatient 05/15/2019 [facility] 12:00:00 AM EST Medical C enter [address] 236 05/10/2019 eCW1 (S aint [facility] 12:00:00 AM EST [facility]) Inpatient Attender: JESSICA YOUNGBLOOD 05/02/2019 [facility] CHERYL 08:35:00 PM EST - Medical Center ROBERTAttender: 05/04/2019 [facility] CARMITA 05:10:00 PM EST LUZ HAttender: STAFF ED STAFF PHYSICIANAdmitter : JESSICA LOPEZReferrer: JESSICA GUOANIEGO JESSICA Patient discharged. Outpatient 05/02/2019 [facility] 11:15:00 AM EST Medical C enter Outpatient Attender: H 05/02/2019 [facility] Kamron Hebert 09:28:00 AM [facility] MDAdmitter: Kamron Hebert MDReferrer: Kamron Hebert MD Attender: Tim 05/02/2019 [facility] ( [facility] Hua Villalpando 09:28:00 AM [facility] Medical 05/02/2019 Center) 09:28:00 AM EST [facility] [place] [address] 05/02/2019 eCW1 ([facility] 12:00:00 AM [facility]) [address] 05/02/2019 eCW1 (S aint [facility] 12:00:00 AM [facility]) Outpatient 05/02/2019 [facility] 12:00:00 AM EST Medical C enter Outpatient Attender: Osams H 04/26/2019 [facility] SayeghAdmitter: 10:45:00 [facility] Osama SayeghReferrer: Osama Carmita [address] Card[address] 04/26/2019 eCW1 (S aint Office [facility] MP 12[facility]00:00 AM [facility]) [facility] [address] 04/25/2019 eCW1 ([facility] 12:00:00 AM EDT [facility]) [address] [address] [address] 04/24/2019 eCW1 (S aint [facility] MP 12:00:[facility] [address] 04/16/2019 eCW1 (S aint Office [facility] MP 12:00:00 [facility] [address] [address] [address] 04/12/2019 eCW1 (S aint [facility] MP 12:00:00 [facility] [address] [address] [address] 04/11/2019 eCW1 (S aint [facility] 12:00:00 AM EDT [facility] PC) [address] [address] [address] 03/15/2019 eCW1 (S aint [facility] 12:00:00 AM EDT [facility] PC) [address] [address] [address] 03/08/2019 eCW1 (S aint [facility] 12:00:00 AM EDT [facility] PC) [address] [address] [address] 02/27/2019 eCW1 (S aint [facility] 12:00:00 AM EDT [facility] Medical [facility] PC) [place] [address] [address] 02/27/2019 eCW1 ([facility] 12:00:00 AM EDT [facility] PC) Emergency H 02/08/2019 [facility] 06:45:00 AM EDT - Medical Center 02/08/2019 09:01:00 AM EDT Patient discharged. [facility] [place] 02/05/2019 12:00:00 [facility]CW1 [facility] AM EDT [facility]) Immunizations Vaccine Date Status Description Data Source(s) Influenza, high dose 04/01/2020 completed eCW1 ([facility] 04:12:00 PM EDT Medical [facility] tal PC) IIV3. This vaccine code 07/17/2019 completed eCW1 ([facility] which 10:44:00 AM EST Medic al Practice PC) replace CVX 15, influenza, split virus. IIV3. This vaccine code 07/17/2019 completed eCW1 ([facility] two which 10:44:00 AM EST Medic al Practice PC) replace CVX 15, influenza, split virus. IIV3. This vaccine code 07/17/2019 completed eCW1 ([facility] two which 10:44:00 AM EST Medic al Practice PC) replace CVX 15, influenza, split virus. IIV3. This vaccine code 07/17/2019 completed eCW1 ([facility] two which 10:44:00 AM EST Medic al Practice PC) replace CVX 15, influenza, split virus. IIV3. This vaccine code 07/17/2019 completed eCW1 ([facility] two which 10:44:00 AM EST Medic al Practice PC) replace CVX 15, influenza, split virus. IIV3. This vaccine code 07/17/2019 completed eCW1 ([facility] one of two which 10:44:00 AM EST Medic al Practice PC) replace CVX 15, influenza, split virus. IIV3. This vaccine code 07/17/2019 completed eCW1 ([facility] is one of two which 10:44:00 AM EST Medic al Practice PC) replace CVX 15, influenza, split virus. IIV3. This vaccine code 07/17/2019 completed eCW1 ([facility] is one of two which 10:44:00 AM EST Medic al Practice PC) replace CVX 15, influenza, split virus. IIV3. This vaccine code 06/05/2019 completed eCW1 ([facility] is one of two which 10:05:00 AM EST Medic al Practice PC) replace CVX 15, influenza, split virus. IIV3. This vaccine code 06/05/2019 completed eCW1 ([facility] is one of two which 10:05:00 AM EST Medic al Practice PC) replace CVX 15, influenza, split virus. IIV3. This vaccine code 06/05/2019 completed eCW1 ([facility] is one of two which 10:05:00 AM EST Medic al Practice PC) replace CVX 15, influenza, split virus. IIV3. This vaccine code 06/05/2019 completed eCW1 ([facility] is one of two which 10:05:00 AM EST Medic al Practice PC) replace CVX 15, influenza, split virus. IIV3. This vaccine code 06/05/2019 completed eCW1 ([facility] is one of two which 10:05:00 AM EST Medic al Practice PC) replace CVX 15, influenza, split virus. IIV3. This vaccine code 06/05/2019 completed eCW1 ([facility] is one of two which 10:05:00 AM EST Medic al Practice PC) replace CVX 15, influenza, split virus. IIV3. This vaccine code 06/05/2019 completed eCW1 ([facility] is one of two which 10:05:00 AM EST Medic al Practice PC) replace CVX 15, influenza, split virus. IIV3. This vaccine code 06/05/2019 completed eCW1 ([facility] one of two which 10:05:00 AM EST Medic al Practice PC) replace CVX 15, influenza, split virus. IIV3. This vaccine code 06/05/2019 completed eCW1 ([facility] one of two which 10:05:00 AM EST Medic al Practice PC) replace CVX 15, influenza, split virus. IIV3. This vaccine code 05/15/2019 completed eCW1 ([facility] one of two which 11:34:00 AM EST Medic al Practice PC) replace CVX 15, influenza, split virus. IIV3. This vaccine code 05/15/2019 completed eCW1 ([facility] one of two which 11:34:00 AM EST Medic al Practice PC) replace CVX 15, influenza, split virus. IIV3. This vaccine code 05/15/2019 completed eCW1 ([facility] is one of two which 11:34:00 AM EST Medic al Practice PC) replace CVX 15, influenza, split virus. IIV3. This vaccine code 05/15/2019 completed eCW1 ([facility] is one of two which 11:34:00 AM EST Medic al Practice PC) replace CVX 15, influenza, split virus. IIV3. This vaccine code 05/15/2019 completed eCW1 ([facility] is one of two which 11:34:00 AM EST Medic al Practice PC) replace CVX 15, influenza, split virus. IIV3. This vaccine code 05/15/2019 completed eCW1 ([facility] is one of two which 11:34:00 AM EST Medic al Practice PC) replace CVX 15, influenza, split virus. IIV3. This vaccine code 05/15/2019 completed eCW1 ([facility] is one of two which 11:34:00 AM EST Medic al Practice PC) replace CVX 15, influenza, split virus. IIV3. This vaccine code 05/15/2019 completed eCW1 ([facility] is one of two which 11:34:00 AM EST Medic al Practice PC) replace CVX 15, influenza, split virus. IIV3. This vaccine code 05/15/2019 completed eCW1 ([facility] one of two which 11:31:00 AM EST Medic al Practice PC) replace CVX 15, influenza, split virus. IIV3. This vaccine code 05/15/2019 completed eCW1 ([facility] is one of two which 11:31:00 AM EST Medic al Practice PC) replace CVX 15, influenza, split virus. IIV3. This vaccine code 05/15/2019 completed eCW1 ([facility] one of two which 11:31:00 AM EST Medic al Practice PC) replace CVX 15, influenza, split virus. IIV3. This vaccine code 05/15/2019 completed eCW1 ([facility] one of two which 11:31:00 AM EST Medic al Practice PC) replace CVX 15, influenza, split virus. IIV3. This vaccine code 05/15/2019 completed eCW1 ([facility] one of two which 11:31:00 AM EST Medic al Practice PC) replace CVX 15, influenza, split virus. IIV3. This vaccine code 05/15/2019 completed eCW1 ([facility] is one of two which 11:31:00 AM EST Medic al Practice PC) replace CVX 15, influenza, split virus. IIV3. This vaccine code 05/15/2019 completed eCW1 ([facility] one of two which 11:31:00 AM EST Medic al Practice PC) replace CVX 15, influenza, split virus. IIV3. This vaccine code 05/15/2019 completed eCW1 ([facility] one of two which 11:31:00 AM EST Medic al Practice PC) replace CVX 15, influenza, split virus. IIV3. This vaccine code 05/02/2019 completed eCW1 ([facility] one of two which 09:53:00 AM EST Medic al Practice PC) replace CVX 15, influenza, split virus. IIV3. This vaccine code 05/02/2019 completed eCW1 ([facility] one of two which 09:53:00 AM EST Medic al Practice PC) replace CVX 15, influenza, split virus. IIV3. This vaccine code 05/02/2019 completed eCW1 ([facility] one of two which 09:53:00 AM EST Medic al Practice PC) replace CVX 15, influenza, split virus. IIV3. This vaccine code 05/02/2019 completed eCW1 ([facility] one of two which 09:53:00 AM EST Medic al Practice PC) replace CVX 15, influenza, split virus. IIV3. This vaccine code 05/02/2019 completed eCW1 ([facility] one of two which 09:53:00 AM EST Medic al Practice PC) replace CVX 15, influenza, split virus. IIV3. This vaccine code 05/02/2019 completed eCW1 ([facility] one of two which 09:53:00 AM EST Medic al Practice PC) replace CVX 15, influenza, split virus. IIV3. This vaccine code 05/02/2019 completed eCW1 ([facility] one of two which 09:53:00 AM EST Medic al Practice PC) replace CVX 15, influenza, split virus. IIV3. This vaccine code 05/02/2019 completed eCW1 ([facility] one of two which 09:53:00 AM EST Medic al Practice PC) replace CVX 15, influenza, split virus. Influenza, injectable, 04/12/2019 completed eCW1 ([place] [facility], preservative free, 01:15:00 PM EDT Medical Practice PC) quadrivalent Influenza, injectable, 04/12/2019 completed eCW1 ([facility], preservative free, 01:15:00 PM EDT Medical Practice PC) quadrivalent Influenza, injectable, 04/12/2019 completed eCW1 ([place] [facility], preservative free, 01:15:00 PM EDT Medical Practice PC) quadrivalent Influenza, injectable, 04/12/2019 completed eCW1 ([place] [facility], preservative free, 01:15:00 PM EDT Medical Practice PC) quadrivalent Influenza, injectable, 04/12/2019 completed eCW1 ([facility], preservative free, 01:15:00 PM EDT Medical Practice PC) quadrivalent Influenza, injectable, 04/12/2019 completed eCW1 ([facility], preservative free, 01:15:00 PM EDT Medical Practice PC) quadrivalent Influenza, injectable, 04/12/2019 completed eCW1 ([place] [facility], preservative free, 01:15:00 PM EDT Medical Practice PC) quadrivalent Influenza, injectable, 04/12/2019 completed eCW1 ([facility]CK, preservative free, 01:15:00 PM EDT Medical Practice PC) quadrivalent Medications Medication Brand Start Product Dose Route Administrative Pharmacy [facility] Indications Reaction Description Data Name Date Form Instructions Instructions Source(s) Zithromax Zithro 02/05/ suspend Zithroma x eCW1 Z-Jed 250 max 2020 ed Z-Jed 250 MG (S aint MG Z-Jed 12:00: [facility] 250 MG 00 AM Medical EDT Practice PC) Zithromax Zithro 02/05/ suspend Zithroma x eCW1 Z-Jed 250 max 2020 ed Z-Jed 250 MG (S aint MG Z-Jed 12:00: [facility] 250 MG 00 AM Medical EDT Practice PC) Zithromax Zithro 02/05/ suspend Zithroma x eCW1 Z-Jed 250 max 2020 ed Z-Jed 250 MG (S aint MG Z-Jed 12:00: [facility] 250 MG 00 AM Medical EDT Practice PC) Zithromax Zithro 02/05/ active Zithromax eCW1 Z-Jed 250 max 2020 Z-Jed 250 MG (S aint MG Z-Jed 12:00: [facility] 250 MG 00 AM Medical EDT Practice PC) Zithromax Zithro 02/05/ active Zithromax eCW1 Z-Jed 250 max 2020 Z-Jed 250 MG (S aint MG Z-Jed 12:00: [facility] 250 MG 00 AM Medical EDT Practice PC) NITROFURANT Macrob 1.0 active Macrobi d 100 eCW1 OIN, id 100 2019 {tabl MG ([facility] 12:00: et} Dario s LS 25 MG / 00 AM Medical Nitrofurant EDT Practice oin, PC) Monohydrate 75 MG Oral Capsule [Macrobid] Macrobid 100 MG NITROFURANT Macrob 11/06/ 1.0 active Macrobi d 100 eCW1 OIN, id 100 2019 {tabl MG ([facility] 12:00: et} Dario s LS 25 MG / 00 AM Medical Nitrofurant EDT Practice oin, PC) Monohydrate 75 MG Oral Capsule [Macrobid] Macrobid 100 MG NITROFURANT Macrob 11/06/ 1.0 active Macrobi d 100 eCW1 OIN, id 100 2019 {tabl MG ([facility] 12:00: et} Dario s LS 25 MG / 00 AM Medical Nitrofurant EDT Practice [facility]) Monohydrate 75 MG Oral Capsule [Macrobid] Macrobid 100 MG NITROFURANT Macrob 11/06/ 1.0 active Macrobi d 100 eCW1 OIN, id 100 2019 {tabl MG ([facility] 12:00: et} Dario s LS 25 MG / 00 AM Medical Nitrofurant EDT Practice oi, ) Monohydrate 75 MG Oral Capsule [Macrobid] Macrobid 100 MG NITROFURANT Macrob 1.0 active Macrobi d 100 eCW1 OIN, id 100 2019 {tabl MG ([facility] 12:00: et} Dario s LS 25 MG / 00 AM Medical Nitrofurant EDT Practice [facility]) Monohydrate 75 MG Oral Capsule [Macrobid] Macrobid 100 MG NITROFURANT Macrob 11/06/ 1.0 active Macrobi d 100 eCW1 OIN, id 100 2019 {tabl MG ([facility] 12:00: et} Dario s LS 25 MG / 00 AM Medical Nitrofurant EDT Practice [facility]) Monohydrate 75 MG Oral Capsule [Macrobid] Macrobid 100 MG NITROFURANT Macrob 11/06/ 1.0 suspend Macrob id 100 eCW1 OIN, id 100 2019 {tabl ed MG ([facility] 12:00: et} Dario s LS 25 MG / 00 AM Medical Nitrofurant EDT Practice [facility]) Monohydrate 75 MG Oral Capsule [Macrobid] Macrobid 100 MG NITROFURANT Macrob 11/06/ active 1 table t eCW1 OIN, id 100 2019 ([facility] 12:00: Dario s LS 25 MG / 00 AM Medical Nitrofurant EDT Practice [facility]) Monohydrate 75 MG Oral Capsule [Macrobid] Macrobid 100 MG NITROFURANT Macrob 11/06/ 1.0 active Macrobi d 100 eCW1 OIN, id 100 2019 {tabl MG ([facility] 12:00: et} Dario s LS 25 MG / 00 AM Medical Nitrofurant EDT Practice oin, ) Monohydrate 75 MG Oral Capsule [Macrobid] Macrobid 100 MG NITROFURANT Macrob .0 suspend Macrob id 100 eCW1 OIN, id 100 2019 {tabl ed MG ([facility] 12:00: et} Dario s LS 25 MG / 00 AM Medical Nitrofurant EDT Practice n, ) Monohydrate 75 MG Oral Capsule [Macrobid] Macrobid 100 MG NITROFURANT Macrob .0 suspend Macrob id 100 eCW1 OIN, id 100 2019 {tabl ed MG ([facility] 12:00: et} Dario s LS 25 MG / 00 AM Medical Nitrofurant EDT Practice n, ) Monohydrate 75 MG Oral Capsule [Macrobid] Macrobid 100 MG Amoxicillin .0 active Augment in eCW1 500 MG / tin 2018 {tabl 500-125 MG ([facility] Clavulanate 500-12 12:00: et} [facility] 125 MG Oral 5 MG 00 AM Medical Tablet EDT Practice [Augmentin] PC) Augmentin 500-125 MG Amoxicillin 04/12/ suspend 1 tabl et eCW1 500 MG / tin 2019 ed ([facility] Clavulanate 500-12 12:00: [facility] 125 MG Oral 5 MG 00 AM Medical Tablet EDT Practice [Augmentin] PC) Augmentin 500-125 MG Amoxicillin .0 active Augment in eCW1 500 MG / tin 2019 {tabl 500-125 MG ([facility] Clavulanate 500-12 12:00: et} [facility] 125 MG Oral 5 MG 00 AM Medical Tablet EDT Practice [Augmentin] PC) Augmentin 500-125 MG Amoxicillin .0 active Augment in eCW1 500 MG / tin 2019 {tabl 500-125 MG ([facility] Clavulanate 500-12 12:00: et} [facility] 125 MG Oral 5 MG 00 AM Medical Tablet EDT Practice [Augmentin] PC) Augmentin 500-125 MG Amoxicillin .0 active Augment in eCW1 500 MG / tin 2019 {tabl 500-125 MG ([facility] Clavulanate 500-12 12:00: et} [facility] 125 MG Oral 5 MG 00 AM Medical Tablet EDT Practice [Augmentin] PC) Augmentin 500-125 MG Amoxicillin .0 active Augment in eCW1 500 MG / tin 2019 {tabl 500-125 MG ([facility] Clavulanate 500-12 12:00: et} [facility] 125 MG Oral 5 MG 00 AM Medical Tablet EDT Practice [Augmentin] PC) Augmentin 500-125 MG Amoxicillin active 1 table t eCW1 500 MG / tin 2018 ([facility] Clavulanate 500-12 12:00: [facility] 125 MG Oral 5 MG 00 AM Medical Tablet EDT Practice [Augmentin] PC) Augmentin 500-125 MG Amoxicillin .0 suspend eCW1 500 MG / tin 2019 {tabl ed 500-125 MG ([facility] Clavulanate 500-12 12:00: et} [facility] 125 MG Oral 5 MG 00 AM Medical Tablet EDT Practice [Augmentin] PC) Augmentin 500-125 MG Amoxicillin active 1 table t eCW1 500 MG / tin 2018 ([facility] Clavulanate 500-12 12:00: [facility] 125 MG Oral 5 MG 00 AM Medical Tablet EDT Practice [Augmentin] PC) Augmentin 500-125 MG Amoxicillin suspend 1 tabl et eCW1 500 MG / tin 2019 ed ([facility] Clavulanate 500-12 12:00: [facility] 125 MG Oral 5 MG 00 AM Medical Tablet EDT Practice [Augmentin] PC) Augmentin 500-125 MG Amoxicillin active 1 table t eCW1 500 MG / tin 2018 ([facility] Clavulanate 500-12 12:00: [facility] 125 MG Oral 5 MG 00 AM Medical Tablet EDT Practice [Augmentin] PC) Augmentin 500-125 MG Amoxicillin suspend 1 tabl et eCW1 500 MG / tin 2019 ed ([facility] Clavulanate 500-12 12:00: [facility] 125 MG Oral 5 MG 00 AM Medical Tablet EDT Practice [Augmentin] PC) Augmentin 500-125 MG Amoxicillin 04/12/ active 1 table t eCW1 500 MG / tin 2019 ([facility] Clavulanate 500-12 12:00: [facility] 125 MG Oral 5 MG 00 AM Medical Tablet EDT Practice [Augmentin] PC) Augmentin 500-125 MG Amoxicillin suspend 1 tabl et eCW1 500 MG / tin 2019 ed ([facility] Clavulanate 500-12 12:00: [facility] 125 MG Oral 5 MG 00 AM Medical Tablet EDT Practice [Augmentin] PC) Augmentin 500-125 MG Amoxicillin suspend 1 tabl et eCW1 500 MG / tin 2019 ed ([facility] Clavulanate 500-12 12:00: [facility] 125 MG Oral 5 MG 00 AM Medical Tablet EDT Practice [Augmentin] PC) Augmentin 500-125 MG Amoxicillin active 1 table t eCW1 500 MG / tin 2018 ([facility] Clavulanate 500-12 12:00: [facility] 125 MG Oral 5 MG 00 AM Medical Tablet EDT Practice [Augmentin] PC) Augmentin 500-125 MG Amoxicillin .0 active Augment in eCW1 500 MG / tin 2019 {tabl 500-125 MG ([facility] Clavulanate 500-12 12:00: et} [facility] 125 MG Oral 5 MG 00 AM Medical Tablet EDT Practice [Augmentin] PC) Augmentin 500-125 MG Amoxicillin .0 active Augment in eCW1 500 MG / tin 2019 {tabl 500-125 MG ([facility] Clavulanate 500-12 12:00: et} [facility] 125 MG Oral 5 MG 00 AM Medical Tablet EDT Practice [Augmentin] PC) Augmentin 500-125 MG Amoxicillin .0 active Augment in eCW1 500 MG / tin 2019 {tabl 500-125 MG ([facility] Clavulanate 500-12 12:00: et} [facility] 125 MG Oral 5 MG 00 AM Medical Tablet EDT Practice [Augmentin] PC) Augmentin 500-125 MG Amoxicillin suspend 1 tabl et eCW1 500 MG / tin 2019 ed ([facility] Clavulanate 500-12 12:00: [facility] 125 MG Oral 5 MG 00 AM Medical Tablet EDT Practice [Augmentin] PC) Augmentin 500-125 MG Amoxicillin .0 active Augment in eCW1 500 MG / tin 2019 {tabl 500-125 MG ([facility] Clavulanate 500-12 12:00: et} [facility] 125 MG Oral 5 MG 00 AM Medical Tablet EDT Practice [Augmentin] PC) Augmentin 500-125 MG Amoxicillin Janmen .0 active Augment in eCW1 500 MG / tin 2019 {tabl 500-125 MG ([facility] Clavulanate 500-12 12:00: et} [facility] 125 MG Oral 5 MG 00 AM Medical Tablet EDT Practice [Augmentin] PC) Augmentin 500-125 MG 200 ACTUAT Ventol .0 active Ventolin HFA eCW1 Albuterol in HFA 2018 {puff 108 (90 ([facility] 0.09 108 12:00: s_as_ Base) [facility] MG/ACTUAT (90 00 AM neede MCG/ACT Medic al Metered Base) EDT d} Practice Dose MCG/AC PC) Inhaler T [Ventolin] Ventolin HFA 108 (90 Base) MCG/ACT 200 ACTUAT Ventol .0 active Ventolin HFA eCW1 Albuterol in HFA 2018 {puff 108 (90 ([facility] 0.09 108 12:00: s_as_ Base) [facility] MG/ACTUAT (90 00 AM neede MCG/ACT Medic al Metered Base) EDT d} Practice Dose MCG/AC PC) Inhaler T [Ventolin] Ventolin HFA 108 (90 Base) MCG/ACT 200 ACTUAT Ventol .0 active Ventolin HFA eCW1 Albuterol in HFA 2018 {puff 108 (90 ([facility] 0.09 108 12:00: s_as_ Base) [facility] MG/ACTUAT (90 00 AM neede MCG/ACT Medic al Metered Base) EDT d} Practice Dose MCG/AC PC) Inhaler T [Ventolin] Ventolin HFA 108 (90 Base) MCG/ACT 200 ACTUAT Ventol .0 active Ventolin HFA eCW1 Albuterol in HFA 2018 {puff 108 (90 ([facility] 0.09 108 12:00: s_as_ Base) [facility] MG/ACTUAT (90 00 AM neede MCG/ACT Medic al Metered Base) EDT d} Practice Dose MCG/AC PC) Inhaler T [Ventolin] Ventolin HFA 108 (90 Base) MCG/ACT 200 ACTUAT Ventol 03/15/ active 2 puffs as eCW1 Albuterol in HFA 2019 needed ([facility] 0.09 108 12:00: [facility] MG/ACTUAT (90 00 AM Medical Metered Base) EDT Practice Dose MCG/AC PC) Inhaler T [Ventolin] Ventolin HFA 108 (90 Base) MCG/ACT 200 ACTUAT Ventol 03/15/ active 2 puffs as eCW1 Albuterol in HFA 2019 needed ([facility] 0.09 108 12:00: [facility] MG/ACTUAT (90 00 AM Medical Metered Base) EDT Practice Dose MCG/AC PC) Inhaler T [Ventolin] Ventolin HFA 108 (90 Base) MCG/ACT 200 ACTUAT Ventol 03/15/ active 2 puffs as eCW1 Albuterol in HFA 2019 needed ([facility] 0.09 108 12:00: [facility] MG/ACTUAT (90 00 AM Medical Metered Base) EDT Practice Dose MCG/AC PC) Inhaler T [Ventolin] Ventolin HFA 108 (90 Base) MCG/ACT 200 ACTUAT Ventol 2.0 active Ventolin HFA eCW1 Albuterol in HFA 2019 {puff 108 (90 ([facility] 0.09 108 12:00: s_as_ Base) [facility] MG/ACTUAT (90 00 AM neede MCG/ACT Medic al Metered Base) EDT d} Practice Dose MCG/AC PC) Inhaler T [Ventolin] Ventolin HFA 108 (90 Base) MCG/ACT 200 ACTUAT Ventol 2.0 active Ventolin HFA eCW1 Albuterol in HFA 2019 {puff 108 (90 ([facility] 0.09 108 12:00: s_as_ Base) [facility] MG/ACTUAT (90 00 AM neede MCG/ACT Medic al Metered Base) EDT d} Practice Dose MCG/AC PC) Inhaler T [Ventolin] Ventolin HFA 108 (90 Base) MCG/ACT 200 ACTUAT Ventol 03/15/ active 2 puffs as eCW1 Albuterol in HFA 2019 needed ([facility] 0.09 108 12:00: [facility] MG/ACTUAT (90 00 AM Medical Metered Base) EDT Practice Dose MCG/AC PC) Inhaler T [Ventolin] Ventolin HFA 108 (90 Base) MCG/ACT 200 ACTUAT Ventol 03/15/ active 2 puffs as eCW1 Albuterol in HFA 2019 needed ([facility] 0.09 108 12:00: [facility] MG/ACTUAT (90 00 AM Medical Metered Base) EDT Practice Dose MCG/AC PC) Inhaler T [Ventolin] Ventolin HFA 108 (90 Base) MCG/ACT 200 ACTUAT Ventol 03/15/ active 2 puffs as eCW1 Albuterol in HFA 2019 needed ([facility] 0.09 108 12:00: [facility] MG/ACTUAT (90 00 AM Medical Metered Base) EDT Practice Dose MCG/AC PC) Inhaler T [Ventolin] Ventolin HFA 108 (90 Base) MCG/ACT 200 ACTUAT Ventol 03/15/ active 2 puffs as eCW1 Albuterol in HFA 2019 needed ([facility] 0.09 108 12:00: [facility] MG/ACTUAT (90 00 AM Medical Metered Base) EDT Practice Dose MCG/AC PC) Inhaler T [Ventolin] Ventolin HFA 108 (90 Base) MCG/ACT 200 ACTUAT Ventol 2.0 active Ventolin HFA eCW1 Albuterol in HFA 2019 {puff 108 (90 ([facility] 0.09 108 12:00: s_as_ Base) [facility] MG/ACTUAT (90 00 AM neede MCG/ACT Medic al Metered Base) EDT d} Practice Dose MCG/AC PC) Inhaler T [Ventolin] Ventolin HFA 108 (90 Base) MCG/ACT 200 ACTUAT Ventol 2.0 active Ventolin HFA eCW1 Albuterol in HFA 2019 {puff 108 (90 ([facility] 0.09 108 12:00: s_as_ Base) [facility] MG/ACTUAT (90 00 AM neede MCG/ACT Medic al Metered Base) EDT d} Practice Dose MCG/AC PC) Inhaler T [Ventolin] Ventolin HFA 108 (90 Base) MCG/ACT 200 ACTUAT Ventol 03/15/ active 2 puffs as eCW1 Albuterol in HFA 2019 needed ([facility] 0.09 108 12:00: [facility] MG/ACTUAT (90 00 AM Medical Metered Base) EDT Practice Dose MCG/AC PC) Inhaler T [Ventolin] Ventolin HFA 108 (90 Base) MCG/ACT 200 ACTUAT Ventol 2.0 active Ventolin HFA eCW1 Albuterol in HFA 2019 {puff 108 (90 ([facility] 0.09 108 12:00: s_as_ Base) [facility] MG/ACTUAT (90 00 AM neede MCG/ACT Medic al Metered Base) EDT d} Practice Dose MCG/AC PC) Inhaler T [Ventolin] Ventolin HFA 108 (90 Base) MCG/ACT 200 ACTUAT Ventol 03/15/ active 2 puffs as eCW1 Albuterol in HFA 2019 needed ([facility] 0.09 108 12:00: [facility] MG/ACTUAT (90 00 AM Medical Metered Base) EDT Practice Dose MCG/AC PC) Inhaler T [Ventolin] Ventolin HFA 108 (90 Base) MCG/ACT 200 ACTUAT Ventol 03/15/ active 2 puffs as eCW1 Albuterol in HFA 2019 needed ([facility] 0.09 108 12:00: [facility] MG/ACTUAT (90 00 AM Medical Metered Base) EDT Practice Dose MCG/AC PC) Inhaler T [Ventolin] Ventolin HFA 108 (90 Base) MCG/ACT 200 ACTUAT Ventol 2.0 active Ventolin HFA eCW1 Albuterol in HFA 2019 {puff 108 (90 ([facility] 0.09 108 12:00: s_as_ Base) [facility] MG/ACTUAT (90 00 AM neede MCG/ACT Medic al Metered Base) EDT d} Practice Dose MCG/AC PC) Inhaler T [Ventolin] Ventolin HFA 108 (90 Base) MCG/ACT 200 ACTUAT Ventol 2.0 active Ventolin HFA eCW1 Albuterol in HFA 2019 {puff 108 (90 ([facility] 0.09 108 12:00: s_as_ Base) [facility] MG/ACTUAT (90 00 AM neede MCG/ACT Medic al Metered Base) EDT d} Practice Dose MCG/AC PC) Inhaler T [Ventolin] Ventolin HFA 108 (90 Base) MCG/ACT 200 ACTUAT Ventol 03/15/ active 2 puffs as eCW1 Albuterol in HFA 2019 needed ([facility] 0.09 108 12:00: [facility] MG/ACTUAT (90 00 AM Medical Metered Base) EDT Practice Dose MCG/AC PC) Inhaler T [Ventolin] Ventolin HFA 108 (90 Base) MCG/ACT Insurance Providers Payer name Policy type Policy ID Covered Covered democrat's Policy P domi / Coverage democrat ID relationship to [facility] ormation type curtis MEDICAID [id number] SP [id number] CRISTIN [id number] SP [id number] 600 MEDICARE ADV PLAN TRAVIS MEDICARE [id number] SP [id number] CRISTIN O [id number] 01 [id number] MEDICARE OP W [id number] TRAVIS MEDICARE [id number] SP [id number] MEDICAID [id number] SP [id number] ELDERPLAN [id number] SP [id number] INC MEDICAID [id number] SP [id number] M [id number] 600 [place] [id number] PART B DOWNSTATE CRISTIN CARE [id number] MEDICAID [id number] SP [id number] CRISTIN [id number] SP [id number] 600 MEDICARE ADV PLAN CRISTIN HMO [id number] 01 [id number] MEDICARE IP M [id number] 01 [id number] W [id number] 01 [id number] [place] [id number] SP [id number] COMPLETE CRISTIN [id number] 01 [id number] 600 CRISTIN [id number] 01 [id number] 600 W [id number] M [id number] 01 [id number] Problems, Conditions, and Diagnoses Code Display Name Description Problem Type Effective Data Dates Source(s) E11.9 [id number] Type 2 diabetes Problem 01/22/2020 eCW1 ([facility] mellitus without 12:00:00 AM [facility] complication, EDT Medical without long-term Practic e PC) current use of insulin D47.3 [id number] Thrombocythemia Problem 01/22/2020 eCW1 ([facility] 12:00:00 AM [facility] EDT Medical Practice PC) E11.29 [id number] Type 2 diabetes Problem 01/02/2020 eCW1 ([facility] mellitus with other 12:00:00 AM [facility] nikunj diabetic kidney EDT Medical complication Practice PC) J45.20 [id number] Mild intermittent Problem 11/01/2019 eCW1 ([facility] asthma without 12:00:00 AM [facility] complication EDT Medical Practice PC) J45.20 [id number] Mild intermittent Problem 11/01/2019 eCW1 ([facility] asthma without 12:00:00 AM [facility] complication EDT Medical Practice PC) E10.9 [id number] Insulin dependent Problem 08/14/2019 eCW1 ([facility] aint diabetes mellitus 12:00:00 AM Draio s type IA EST Medical Practice PC) I63.9 [id number] Cerebrovascular Problem 05/15/2019 eCW1 ([facility] [place] accident (CVA), 12:00:00 AM [facility] unspecified EST Medical mechanism Practice PC) I63.9 [id number] Cerebrovascular Problem 05/15/2019 eCW1 ([place] accident (CVA), 12:00:00 AM [facility] unspecified EST Medical mechanism Practice PC) H26.9 [id number] Cataract of right Problem 05/02/2019 eCW1 ([facility] eye, unspecified 12:00:00 AM [facility] cataract type EST Medical Practice PC) H26.9 [id number] Cataract, Problem 04/24/2019 eCW1 ([facility] unspecified 12:00:00 AM [facility] cataract type, EDT Medical unspecified Practice PC) laterality H26.9 [id number] Cataract, Problem 04/24/2019 eCW1 ([facility] unspecified 12:00:00 AM [facility] cataract type, EDT Medical unspecified Practice PC) laterality N18.9 [id number] Chronic kidney Problem 04/16/2019 eCW1 (Melany t disease, 12:00:00 AM [facility] unspecified CKD EDT Medical stage Practice PC) N18.9 [id number] Chronic kidney Problem 04/16/2019 eCW1 ([facility] t disease, 12:00:00 AM [facility] unspecified CKD EDT Medical stage Practice PC) 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/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 ([facility] use of insulin 12:00:00 AM [facility] EDT Medical Practice PC) E78.5 Hyperlipidemia, HYPERLIPIDEMIA, Diagnosis 03/04/2020 [facility] unspecified UNSPECIFIED 08:35:00 AM Medical EDT Center E11.9 Type 2 diabetes TYPE 2 DIABETES Diagnosis 03/04/2020 [facility] mellitus without MELLITUS WITHOUT 08:35:00 AM M edical complications COMPLICATIONS EDT Center N18.9 Chronic kidney CHRONIC KIDNEY Diagnosis 03/04/2020 [facility] disease, DISEASE, 08:35:00 AM Medical unspecified UNSPECIFIED EDT Center I10 Essential (primary) ESSENTIAL (PRIMARY) Diagnosis 020 [facility] hypertension HYPERTENSION 08:35:00 AM Medical EDT Center Z01.810 Encounter for ENCOUNTER FOR Diagnosis 01/02/2020 [facility]y stevens preprocedural PREPROCEDURAL 12:48:00 PM Medical cardiovascular CARDIOVASCULAR EDT Center examination EXAMINATION E87.5 Hyperkalemia HYPERKALEMIA Diagnosis 08/27/2019 [facility] 08:55:00 AM Medical EST Center N18.4 Chronic kidney CHRONIC KIDNEY Diagnosis 08/27/2019 [facility] disease, stage 4 DISEASE, STAGE 4 08:55:00 AM M edical (severe) (SEVERE) EST Center R07.9 Chest pain, CHEST PAIN, Diagnosis 08/27/2019 [facility] unspecified UNSPECIFIED 08:55:00 AM Medical EST Center I63.9 Cerebral CEREBRAL Diagnosis 07/17/2019 [facility] infarction, INFARCTION, 10:33:00 AM Medical unspecified UNSPECIFIED EST Center I25.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 Diagnosis 07/17/2019 [facility] [place] heart disease of DISEASE OF CRAIG 10:33:00 AM Medical kletsel dehe w[place] coronary CORONARY ARTERY W/O EST Center artery without ANG PCTRS angina pectoris I13.10 Hypertensive heart HYP HRT and CHR Diagnosis 06/05/2019 S aint [facility] and chronic kidney KDNY DIS W/O HRT 09:17:00 AM Medical disease without FAIL, W STG EST Center heart failure, with 1-4/UNSP CHR KDNY stage 1 through stage 4 chronic kidney disease, or unspecified chronic kidney disease Z01.818 Encounter for other ENCOUNTER FOR OTHER Diagnosis [facility] preprocedural PREPROCEDURAL 09:17:00 AM Medical examination EXAMINATION EST Center N28.9 Disorder of kidney DISORDER OF KIDNEY Diagnosis 9 [facility] and ureter, AND URETER, 09:26:00 AM Medical unspecified UNSPECIFIED EST Center C61 Malignant neoplasm MALIGNANT NEOPLASM Diagnosis 9 [facility] of prostate OF PROSTATE 09:26:00 AM Medical EST Center R32 Unspecified urinary UNSPECIFIED URINARY Diagnosis [facility] incontinence INCONTINENCE 05:10:00 PM Medical EST Center E03.9 Hypothyroidism, HYPOTHYROIDISM, Diagnosis 05/04/2019 [facility] unspecified UNSPECIFIED 05:10:00 PM Medical EST Center E11.21 Type 2 diabetes TYPE 2 DIABETES Diagnosis 05/04/2019 [facility] mellitus with MELLITUS WITH 05:10:00 PM Medical diabetic DIABETIC EST Center nephropathy NEPHROPATHY E11.22 Type 2 diabetes TYPE 2 DIABETES Diagnosis 05/04/2019 [facility] mellitus with MELLITUS W DIABETIC 05:10:00 PM M edical diabetic chronic CHRONIC KIDNEY EST [facility] er kidney disease DISEASE I12.9 Hypertensive HYPERTENSIVE Diagnosis 05/04/2019 [facility] chronic kidney CHRONIC KIDNEY 05:10:00 PM Medic al disease with stage DISEASE W STG EST Kari ter 1 through stage 4 1-4/UNSP CHR KDNY chronic kidney disease, or unspecified chronic kidney disease I25.119 Atherosclerotic ATHSCL HEART Diagnosis 05/04/2019 [facility] [place] heart disease of DISEASE OF CRAIG 05:10:00 PM Medical kletsel dehe wint[place] coronary COR ART W UNSP ANG EST C enter artery with PCTRS unspecified angina pectoris Z85.46 Personal history of PERSONAL HISTORY OF Diagnosis [facility] malignant neoplasm MALIGNANT NEOPLASM 05:10:00 PM Medical of prostate OF PROSTATE EST Center Z98.61 Coronary CORONARY Diagnosis 05/04/2019 [facility] angioplasty status ANGIOPLASTY STATUS 05:10:00 PM Medical EST Center H60.501 Unspecified acute UNSPECIFIED ACUTE Diagnosis 02/08/2019 [facility] noninfective otitis NONINFECTIVE OTITIS 06:45:0 0 AM Medical externa, right ear EXTERNA, RIGHT EAR EDT Center H92.09 Otalgia, OTALGIA, Diagnosis 02/08/2019 [facility] unspecified ear UNSPECIFIED EAR 06:45:00 AM Med ica EDT Center Surgeries/Procedures Procedure Description Date Indications Data Source(s) COLLECTION VENOUS BLOOD 11/01/2019 eCW1 ([facility] VENIPUNCTURE 12:00:00 AM EDT Medical Prac tal PC) HANDLG&/OR CONVEY OF 11/01/2019 eCW1 ([facility] SPEC FOR TR OFFICE TO 12:00:00 AM EDT Med ical Practice PC) LAB Results ID Date Data Source [id number] 01/04/2020 03:10:00 AM EDT [facility] Name Value Range Interpretation Description Data Sup porting Code Source(s) Document(s ) SARS [facility] coronavirus 2 RNA This lab was ordered by [facility] and reported by [facility]. ID Date Data Source [id number] 08/28/2019 04:42:00 AM EST [facility] Center Name Value Range Interpretation Description Data Sup porting Code Source(s) Document(s ) Cholesterol -<200 <content [facility] [Mass/volume] styleCode="Bold"> [facility] in Serum or Cholesterol Medical Plasma </content>155 Center MG/DL<content styleCode="Italic s"> (-<200 MG/DL)</content> UNK > 60 Below low normal <content [facility] styleCode="Bold"> [facility] HDL- Cholesterol Medical </content>30 Center MG/DL L<content styleCode="Italic s"> (> 60 MG/DL)</content> Triglyceride < 150 Above high normal <content [facility] [Mass/volume] styleCode="Bold"> [facility] in Serum or Triglycerides Medical Plasma </content>267 Center MG/DL H<content styleCode="Italic s"> (< 150 MG/DL)</content> UNK <content [facility] styleCode="Bold"> [facility] LDL-Cholesterol Medical </content> Center (Reference Range: not available)
<c ontent styleCode="xLocal PreformattedText" >Triglycerides are >250 mg/dl; therefore, the LDL calculation is invalid.
Chol esterol electrophoresis is recommended if medically appropriate.</con tent> ID Date Data Source GFR(Creatinine).[id number] 08/28/2019 04:42:[address] [facility] 0-0400 Name Value Range Interpretation Code Description Data Anitha rce(s) Supporting Document(s ) UNK > 60 Below low normal <content [facility] styleCode="Bold"> Medical Cent er EGFR </content>22 GFR L<content styleCode="Italic s"> (> 60 GFR)</content> ID Date Data Source CHMROUTINECCDA.[id number] 08/28/2019 04:42:[address] [facility] -0400 Name Value Range Interpretation Description Data Sup porting Code Source(s) Document(s ) Magnesium 1.6-2.3 <content [facility] [Mass/volume] styleCode="Elida [facility] in Serum or d">Magnesium Medical Plasma </content>1.8 Center MG/DL<content styleCode="Rose Mary lics"> (1.6-2.3 MG/DL)</conten t> Phosphate 2.5-4.5 Above high normal <content [facility] [Mass/volume] styleCode="Elida [facility] in Serum or d">Phosphorus Medical Plasma </content>5.1 Center MG/DL H<content styleCode="Rose Mary lics"> (2.5-4.5 MG/DL)</conten t> ID Date Data Source [id number] 08/28/2019 04:42:[address] [facility] Name Value Range Interpretation Description Data Sup porting Code Source(s) Document(s ) Potassium 3.5-5.3 <content [facility] [Moles/volume] styleCode="Elida [facility] in Serum or d">Potassium Medical Plasma </content>3.8 Center MEQ/L<content styleCode="Rose Mary lics"> (3.5-5.3 MEQ/L)</conten t> Chloride 98-107 <content [facility] [Moles/volume] styleCode="Elida Bishops in Serum or d">Chloride Medical Plasma </content>103 Center MEQ/L<content styleCode="Rose Mary lics"> (98-107 MEQ/L)</conten t> Carbon 22-30 <content [facility] dioxide, total styleCode="Elida Bishops [Moles/volume] d">Carbon Medical in Serum or Dioxide Center Plasma </content>24 MEQ/L<content styleCode="Rose Mary lics"> (22-30 MEQ/L)</conten t> Sodium 137-145 <content [facility] [Moles/volume] styleCode="Elida Bishops in Serum or d">Sodium Medical Plasma </content>138 Center MEQ/L<content styleCode="Rose Mary lics"> (137-145 MEQ/L)</conten t> Calcium 8.4-10.2 <content [facility] [Mass/volume] styleCode="Elida Bishops in Serum or d">Calcium Medical Plasma </content>9.1 Center MG/DL<content styleCode="Rose Mary lics"> (8.4-10.2 MG/DL)</conten t> Glucose 74-106 Above high normal <content [facility] [Mass/volume] styleCode="Elida Bishops in Serum or d">Glucose Medical Plasma </content>140 Center MG/DL H<content styleCode="Rose Mary lics"> (74-106 MG/DL)</conten t> UNK 9-20 Above high normal <content [facility] styleCode="Elida Bishops d">BUN Medical </content>30 Center MG/DL H<content styleCode="Rose Mary lics"> (9-20 MG/DL)</conten t> Creatinine 0.5-1.3 Above high normal <content [facility] [Mass/volume] styleCode="Elida Bishops in Serum or d">Creatinine Medical Plasma </content>3.0 Center MG/DL H<content styleCode="Rose Mary lics"> (0.5-1.3 MG/DL)</conten t> UNK > 60 Below low normal <content [facility] styleCode="Elida Edward d">EGFR Medical </content>22 Center GFR L<content styleCode="Rose Mary lics"> (> 60 GFR)</content> ID Date Data Source CardiacMarkers.[id number] 08/27/2019 03:00:[address] [facility] -0400 Name Value Range Interpretation Description Data Sup porting Code Source(s) Document(s ) Troponin < 0.034 Above upper panic <content [facility] I.cardiac limits styleCode="Bold [facility] [Mass/volume ">Troponin I Medical ] in Serum </content><cont Center or Plasma ent styleCode="Bold ">0.048 NG/ML HH</content><co ntent styleCode="Ital ics"> (< 0.034 NG/ML)</content > ID Date Data Source CardiacMarkers.[id number] 08/27/2019 12:27:[address] [facility] -0400 Name Value Range Interpretation Code Description Data Anitha rce(s) Supporting Document(s ) UNK 0-0.034 Above upper panic <content [place] s limits styleCode="Bold" Medical Cente r >Troponin 4HR </content><car nt styleCode="Bold" >0.047 NG/ML HH</content><con tent styleCode="Itali cs"> (0-0.034 NG/ML)</content> ID Date Data Source HematologyRou.[id number] 08/27/2019 09:00:[address] [facility] 0400 Name Value Range Interpretation Description Data Sup porting Code Source(s) Document(s ) Leukocytes 4.4-11.0 <content [facility] [#/volume] in styleCode="Bold [facility] Blood by ">White Blood Medical Automated count Cell Count Center </content>6.27 KCUMM<content styleCode="Ital ics"> (4.4-11.0 KCUMM)</content > Erythrocyte mean 80.0-100 <content [facility] corpuscular .0 styleCode="Bold [facility] volume [Entitic ">Mean Medical volume] by Corpuscular Center Automated count Volume </content>84.2 FL<content styleCode="Ital ics"> (80.0-100.0 FL)</content> Hematocrit 41.0-53. Below low normal <content [facility] [Volume 0 styleCode="Bold [facility] Fraction] of ">Hematocrit Medical Blood by </content>30.9 Center Automated count % L<content styleCode="Ital ics"> (41.0-53.0 %)</content> Hemoglobin 13.5-17. Below low normal <content [facility] [Mass/volume] in 5 styleCode="Bold [facility] Blood ">Hemoglobin Medical </content>9.7 Center G/DL L<content styleCode="Ital ics"> (13.5-17.5 G/DL)</content> Erythrocytes 4.4-5.9 Below low normal <content [facility] [#/volume] in styleCode="Bold [facility] Blood by ">Red Blood Medical Automated count Cell Count Center </content>3.67 MCUMM L<content styleCode="Ital ics"> (4.4-5.9 MCUMM)</content > Erythrocyte mean 26.0-34. <content Saint corpuscular 0 styleCode="Bold Edward hemoglobin ">Mean Medical [Entitic mass] Corposcular Center by Automated Hemoglobin count </content>26.4 PG<content styleCode="Ital ics"> (26.0-34.0 PG)</content> Erythrocyte mean 32.0-37. Below low normal <content [facility] corpuscular 0 styleCode="Bold Edward hemoglobin ">Mean Corpus. Medical concentration Hgb Center [Mass/volume] by Concentration Automated count (MCHC) </content>31.4 G/DL L<content styleCode="Ital ics"> (32.0-37.0 G/DL)</content> Erythrocyte 11.5-14. <content Saint distribution 5 styleCode="Bold Edward width [Ratio] by ">Red Cell Medical Automated count Distribution Center Width </content>14.5 %<content styleCode="Ital ics"> (11.5-14.5 %)</content> UNK 0.0 <content Saint styleCode="Bold Edward ">Nucleated Red Medical Blood Cell Center Count </content>0.00 KCUMM<content styleCode="Ital ics"> (0.0 KCUMM)</content > Platelets 130-400 Below low normal <content Saint [#/volume] in styleCode="Bold Edward Blood by ">Platelet Medical Automated count Count Center </content>96 KCUMM L<content styleCode="Ital ics"> (130-400 KCUMM)</content > UNK 0 <content Saint styleCode="Bold Edward ">Nucleated Red Medical Blood Cell Center </content>0.0 /100<content styleCode="Ital ics"> (0 /100)</content> Platelet mean 8.0-11.0 Above high <content Saint volume [Entitic normal styleCode="Bold Edward volume] in Blood ">Mean Platelet Medical by Automated Volume Center count </content>13.6 FL H<content styleCode="Ital ics"> (8.0-11.0 FL)</content> UNK 1.6-7.1 Above high <content Saint normal styleCode="Bold Edward ">Immature Medical Platelet Center Fraction </content>10.3 % H<content styleCode="Ital ics"> (1.6-7.1 %)</content> ID Date Data Source GFR(Creatinine).[id number] 08/27/2019 09:00:00 AM [place] [facility] 0-0400 Name Value Range Interpretation Code Description Data Anitha rce(s) Supporting Document(s ) UNK > 60 Below low normal <content [facility] styleCode="Bold"> Medical Cent er EGFR </content>21 GFR L<content styleCode="Italic s"> (> 60 GFR)</content> ID Date Data Source [employer]Markers.[id number] 08/27/2019 09:00:[address] [facility] -0400 Name Value Range Interpretation Description Data Sup porting Code Source(s) Document(s ) Troponin < 0.034 Above upper panic <content Saint I.cardiac limits styleCode="Bold Edward [Mass/volume ">Troponin I Medical ] in Serum </content><cont Center or Plasma ent styleCode="Bold ">0.046 NG/ML HH</content><co ntent styleCode="Ital ics"> (< 0.034 NG/ML)</content > ID Date Data Source [facility].[id number] 08/27/2019 09:00:00 AM EST [facility] Name Value Range Interpretation Description Data Sup porting Code Source(s) Document(s ) Sodium 137-145 Below low normal <content Saint [Moles/volume] styleCode="Elida Edward in Serum or d">Sodium Medical Plasma </content>135 Center MEQ/L L<content styleCode="Rose Mary lics"> (137-145 MEQ/L)</conten t> Chloride 98-107 <content Saint [Moles/volume] styleCode="Elida Edward in Serum or d">Chloride Medical Plasma </content>103 Center MEQ/L<content styleCode="Rose Mary lics"> (98-107 MEQ/L)</conten t> Potassium 3.5-5.3 <content Saint [Moles/volume] styleCode="Elida Edward in Serum or d">Potassium Medical Plasma </content>4.3 Center MEQ/L<content styleCode="Rose Mary lics"> (3.5-5.3 MEQ/L)</conten t> Carbon 22-30 <content Saint dioxide, total styleCode="Elida Edward [Moles/volume] d">Carbon Medical in Serum or Dioxide Center Plasma </content>22 MEQ/L<content styleCode="Rose Mary lics"> (22-30 MEQ/L)</conten t> UNK > 60 Below low normal <content Saint styleCode="Elida Edward d">EGFR Medical </content>21 Center GFR L<content styleCode="Rose Mary lics"> (> 60 GFR)</content> Calcium 8.4-10.2 <content Saint [Mass/volume] styleCode="Elida Edward in Serum or d">Calcium Medical Plasma </content>9.1 Center MG/DL<content styleCode="Rose Mary lics"> (8.4-10.2 MG/DL)</conten t> UNK 9-20 Above high normal <content Saint styleCode="Elida Leon d">BUN Medical </content>33 Center MG/DL H<content styleCode="Rose Mary lics"> (9-20 MG/DL)</conten t> Glucose 74-106 Above high normal <content [Mass/volume] styleCode="Elida Leon in Serum or d">Glucose Medical Plasma </content>248 Center MG/DL H<content styleCode="Rose Mary lics"> (74-106 MG/DL)</conten t> Creatinine 0.5-1.3 Above high normal <content [Mass/volume] styleCode="Elida Bishops in Serum or d">Creatinine Medical Plasma </content>3.1 Center MG/DL H<content styleCode="Rose Mary lics"> (0.5-1.3 MG/DL)</conten t> ID Date Data Source GFR(Creatinine).[id number] 05/04/2019 05:52:00 AM EST [place] [facility] 0-0500 Name Value Range Interpretation Code Description Data Anitha rce(s) Supporting Document(s ) UNK > 60 Below low normal <content [facility] styleCode="Bold"> Medical Cent er EGFR </content>24 GFR L<content styleCode="Italic s"> (> 60 GFR)</content> ID Date Data Source Coagulation 05/04/2019 05:52:00 AM [facility] Rout.[id number] EST Name Value Range Interpretation Description Data Sup porting Code Source(s) Document(s ) aPTT in 25.1-36. Above high normal <content Platelet poor 5 styleCode="Bold" Edward plasma by >Partial Medical Coagulation Thromboplastin Center assay Time </content>79.6 SEC H<content styleCode="Itali cs"> (25.1-36.5 SEC)</content> INR in 0.80-1.2 <content Saint Platelet poor 0 styleCode="Bold" Edward plasma by >INR Medical Coagulation </content>0.94 Center assay #<content styleCode="Itali cs"> (0.80-1.20 #)</content> UNK 9.0-13.0 <content Saint styleCode="Bold" Edward >Protime Medical </content>10.4 Center SEC<content styleCode="Itali cs"> (9.0-13.0 SEC)</content> ID Date Data Source CHMROUTINECCDA.[id number] 05/04/2019 05:52:00 AM [facility] [facility] -0500 Name Value Range Interpretation Description Data Sup porting Code Source(s) Document(s ) Magnesium 1.6-2.3 <content Saint [Mass/volume] styleCode="Elida Edward in Serum or d">Magnesium Medical Plasma </content>2.3 Center MG/DL<content styleCode="Rose Mary lics"> (1.6-2.3 MG/DL)</conten t> Phosphate 2.5-4.5 <content Saint [Mass/volume] styleCode="Elida Edward in Serum or d">Phosphorus Medical Plasma </content>4.4 Center MG/DL<content styleCode="Rose Mary lics"> (2.5-4.5 MG/DL)</conten t> ID Date Data Source [facility].[id number] 05/04/2019 05:52:00 AM EST [facility] Name Value Range Interpretation Description Data Sup porting Code Source(s) Document(s ) Sodium 137-145 <content Saint [Moles/volume] styleCode="Elida Edward in Serum or d">Sodium Medical Plasma </content>139 Center MEQ/L<content styleCode="Rose Mary lics"> (137-145 MEQ/L)</conten t> UNK 9-20 Above high normal <content Saint styleCode="Elida Edward d">BUN Medical </content>26 Center MG/DL H<content styleCode="Rose Mary lics"> (9-20 MG/DL)</conten t> Carbon 22-30 <content Saint dioxide, total styleCode="Elida Edward [Moles/volume] d">Carbon Medical in Serum or Dioxide Center Plasma </content>23 MEQ/L<content styleCode="Rose Mary lics"> (22-30 MEQ/L)</conten t> Chloride 98-107 Above high normal <content Saint [Moles/volume] styleCode="Elida Bishops in Serum or d">Chloride Medical Plasma </content>108 Center MEQ/L H<content styleCode="Rose Mary lics"> (98-107 MEQ/L)</conten t> Potassium 3.5-5.3 <content Saint [Moles/volume] styleCode="Elida Bishops in Serum or d">Potassium Medical Plasma </content>4.2 Center MEQ/L<content styleCode="Rose Mary lics"> (3.5-5.3 MEQ/L)</conten t> Creatinine 0.5-1.3 Above high normal <content Saint [Mass/volume] styleCode="Elida Bishops in Serum or d">Creatinine Medical Plasma </content>2.8 Center MG/DL H<content styleCode="Rose Mary lics"> (0.5-1.3 MG/DL)</conten t> Calcium 8.4-10.2 <content Saint [Mass/volume] styleCode="Elida Bishops in Serum or d">Calcium Medical Plasma </content>9.1 Center MG/DL<content styleCode="Rose Mary lics"> (8.4-10.2 MG/DL)</conten t> Glucose 74-106 Above high normal <content Saint [Mass/volume] styleCode="Elida Bishops in Serum or d">Glucose Medical Plasma </content>193 Center MG/DL H<content styleCode="Rose Mary lics"> (74-106 MG/DL)</conten t> UNK > 60 Below low normal <content Saint styleCode="Elida Bishops d">EGFR Medical </content>24 Center GFR L<content styleCode="Rose Mary lics"> (> 60 GFR)</content> ID Date Data Source HematologyRou.[id number] 05/04/2019 05:52:00 AM [place] [facility] 0500 Name Value Range Interpretation Description Data Sup porting Code Source(s) Document(s ) Leukocytes 4.4-11.0 <content Saint [#/volume] in styleCode="Bold Edward Blood by ">White Blood Medical Automated count Cell Count Center </content>7.17 KCUMM<content styleCode="Ital ics"> (4.4-11.0 KCUMM)</content > Erythrocytes 4.4-5.9 Below low normal <content Saint [#/volume] in styleCode="Bold Edward Blood by ">Red Blood Medical Automated count Cell Count Center </content>4.21 MCUMM L<content styleCode="Ital ics"> (4.4-5.9 MCUMM)</content > Erythrocyte mean 80.0-100 <content Saint corpuscular .0 styleCode="Bold Edward volume [Entitic ">Mean Medical volume] by Corpuscular Center Automated count Volume </content>81.5 FL<content styleCode="Ital ics"> (80.0-100.0 FL)</content> Hematocrit 41.0-53. Below low normal <content Saint [Volume 0 styleCode="Bold Edward Fraction] of ">Hematocrit Medical Blood by </content>34.3 Center Automated count % L<content styleCode="Ital ics"> (41.0-53.0 %)</content> Hemoglobin 13.5-17. Below low normal <content Saint [Mass/volume] in 5 styleCode="Bold Edward Blood ">Hemoglobin Medical </content>11.0 Center G/DL L<content styleCode="Ital ics"> (13.5-17.5 G/DL)</content> Erythrocyte 11.5-14. Above high <content [facility] distribution 5 normal styleCode="Bold Edward width [Ratio] by ">Red Cell Medical Automated count Distribution Center Width </content>14.7 % H<content styleCode="Ital ics"> (11.5-14.5 %)</content> Erythrocyte mean 32.0-37. <content [facility] corpuscular 0 styleCode="Bold Edward hemoglobin ">Mean Corpus. Medical concentration Hgb Center [Mass/volume] by Concentration Automated count (MCHC) </content>32.1 G/DL<content styleCode="Ital ics"> (32.0-37.0 G/DL)</content> Erythrocyte mean 26.0-34. <content Saint corpuscular 0 styleCode="Bold Edward hemoglobin ">Mean Medical [Entitic mass] Corposcular Center by Automated Hemoglobin count </content>26.1 PG<content styleCode="Ital ics"> (26.0-34.0 PG)</content> Platelets 130-400 <content Saint [#/volume] in styleCode="Bold Edward Blood by ">Platelet Medical Automated count Count Center </content>153 KCUMM<content styleCode="Ital ics"> (130-400 KCUMM)</content > Neutrophils 36-66 <content Saint [#/volume] in styleCode="Bold Edward Blood by ">Neutrophil Medical Automated count </content>61.7 Center %<content styleCode="Ital ics"> (36-66 %)</content> Platelet mean 8.0-11.0 Above high <content Saint volume [Entitic normal styleCode="Bold Edward volume] in Blood ">Mean Platelet Medical by Automated Volume Center count </content>13.4 FL H<content styleCode="Ital ics"> (8.0-11.0 FL)</content> UNK 1.6-7.3 <content Saint styleCode="Bold Edward ">Neutrophil Medical Count Center </content>4.42 KCUMM<content styleCode="Ital ics"> (1.6-7.3 KCUMM)</content > Lymphocytes 24.0-44. <content Saint [#/volume] in 0 styleCode="Bold Edwadr Blood by ">Lymphocyte Medical Automated count </content>25.9 Center %<content styleCode="Ital ics"> (24.0-44.0 %)</content> UNK 1.0-4.8 <content Saint styleCode="Bold Edward ">Lymphocyte Medical Count Center </content>1.86 KCUMM<content styleCode="Ital ics"> (1.0-4.8 KCUMM)</content > Monocytes 3.0-10.0 <content Saint [#/volume] in styleCode="Bold Edward Blood by ">Monocyte Medical Automated count </content>7.4 Center %<content styleCode="Ital ics"> (3.0-10.0 %)</content> UNK 0.0-0.6 <content Saint styleCode="Bold Edward ">Eosinophil Medical Count Center </content>0.29 KCUMM<content styleCode="Ital ics"> (0.0-0.6 KCUMM)</content > Eosinophils 0-5.0 <content Saint [#/volume] in styleCode="Bold Edward Blood by ">Eosinophil Medical Automated count </content>4.0 Center %<content styleCode="Ital ics"> (0-5.0 %)</content> UNK 0.2-0.9 <content Saint styleCode="Bold Edward ">Monocyte Medical Count Center </content>0.53 KCUMM<content styleCode="Ital ics"> (0.2-0.9 KCUMM)</content > UNK 0.0-0.3 <content Saint styleCode="Bold Edward ">Basophil Medical Count Center </content>0.04 KCUMM<content styleCode="Ital ics"> (0.0-0.3 KCUMM)</content > UNK 0.0 <content Saint styleCode="Bold Edward ">Nucleated Red Medical Blood Cell Center Count </content>0.00 KCUMM<content styleCode="Ital ics"> (0.0 KCUMM)</content > Basophils 0.0-1.0 <content Saint [#/volume] in styleCode="Bold Edward Blood by ">Basophil Medical Automated count </content>0.6 Center %<content styleCode="Ital ics"> (0.0-1.0 %)</content> UNK 0 <content Saint styleCode="Bold Edward ">Nucleated Red Medical Blood Cell Center </content>0.0 /100<content styleCode="Ital ics"> (0 /100)</content> UNK 1.6-7.1 Above high <content Saint normal styleCode="Bold Edward ">Immature Medical Platelet Center Fraction </content>9.2 % H<content styleCode="Ital ics"> (1.6-7.1 %)</content> UNK < 1 <content Saint styleCode="Bold Edward ">Immature Medical Granulocyte Center Ratio </content>0.4 %<content styleCode="Ital ics"> (< 1 %)</content> UNK 0-0.1 <content Saint styleCode="Bold Edward ">Immature Medical Granulocyte Center Count </content>0.03 KCUMM<content styleCode="Ital ics"> (0-0.1 KCUMM)</content > ID Date Data Source Coagulation 05/03/2019 10:05:00 PM [facility] ical Center Rout.[id number] EST Name Value Range Interpretation Description Data Sup porting Code Source(s) Document(s ) aPTT in 25.1-36. Above upper panic <content Saint Platelet poor 5 limits styleCode="Bold" Edward plasma by >Partial Medical Coagulation Thromboplastin Center assay Time </content><car nt styleCode="Bold" >165.0 SEC HH</content><con tent styleCode="Itali cs"> (25.1-36.5 SEC)</content> ID Date Data Source Liver 05/03/2019 05:43:00 AM EST [facility] Profile.[id number] Name Value Range Interpretation Description Data Sup porting Code Source(s) Document(s ) Aspartate 17-59 <content Saint aminotransferase styleCode="Bold"> Zeb hs [Enzymatic Aspartate Medical activity/volume] Aminotransferase Center in Serum or Plasma (AST) </content>19 IU/L<content styleCode="Italic s"> (17-59 IU/L)</content> Alkaline 38-126 Above high <content Saint phosphatase normal styleCode="Bold"> Edward [Enzymatic Alkaline Medical activity/volume] Phosphatase (ALP) Cente r in Serum or Plasma </content>142 IU/L H<content styleCode="Italic s"> (38-126 IU/L)</content> Bilirubin.total 0.2-1.3 Below low <content Saint [Mass/volume] in normal styleCode="Bold"> Zeb hs Serum or Plasma Bilirubin Total Medical </content>< 0.2 Center MG/DL L<content styleCode="Italic s"> (0.2-1.3 MG/DL)</content> Alanine 7-50 <content Saint aminotransferase styleCode="Bold"> Zeb hs [Enzymatic Alanine Medical activity/volume] Aminotransferase Center in Serum or Plasma (ALT) </content>17 IU/L<content styleCode="Italic s"> (7-50 IU/L)</content> Albumin 3.5-5.0 <content Saint [Mass/volume] in styleCode="Bold"> Zeb hs Serum or Plasma Albumin Medical </content>3.6 Center G/DL<content styleCode="Italic s"> (3.5-5.0 G/DL)</content> ID Date Data Source HematologyRou.[id number] 05/03/2019 05:43:00 AM [place] [facility] 0500 Name Value Range Interpretation Description Data Sup porting Code Source(s) Document(s ) Leukocytes 4.4-11.0 <content Saint [#/volume] in styleCode="Bold [facility] Blood by ">White Blood Medical Automated count Cell Count Center </content>9.25 KCUMM<content styleCode="Ital ics"> (4.4-11.0 KCUMM)</content > Erythrocytes 4.4-5.9 Below low normal <content Saint [#/volume] in styleCode="Bold Edward Blood by ">Red Blood Medical Automated count Cell Count Center </content>4.25 MCUMM L<content styleCode="Ital ics"> (4.4-5.9 MCUMM)</content > Hematocrit 41.0-53. Below low normal <content Saint [Volume 0 styleCode="Bold [facility] Fraction] of ">Hematocrit Medical Blood by </content>35.4 Center Automated count % L<content styleCode="Ital ics"> (41.0-53.0 %)</content> Hemoglobin 13.5-17. Below low normal <content Saint [Mass/volume] in 5 styleCode="Bold Edward Blood ">Hemoglobin Medical </content>11.3 Center G/DL L<content styleCode="Ital ics"> (13.5-17.5 G/DL)</content> Erythrocyte mean 26.0-34. <content Saint corpuscular 0 styleCode="Bold Edward hemoglobin ">Mean Medical [Entitic mass] Corposcular Center by Automated Hemoglobin count </content>26.6 PG<content styleCode="Ital ics"> (26.0-34.0 PG)</content> Erythrocyte mean 32.0-37. Below low normal <content Saint corpuscular 0 styleCode="Bold Edward hemoglobin ">Mean Corpus. Medical concentration Hgb Center [Mass/volume] by Concentration Automated count (MCHC) </content>31.9 G/DL L<content styleCode="Ital ics"> (32.0-37.0 G/DL)</content> Erythrocyte mean 80.0-100 <content Saint corpuscular .0 styleCode="Bold Edward volume [Entitic ">Mean Medical volume] by Corpuscular Center Automated count Volume </content>83.3 FL<content styleCode="Ital ics"> (80.0-100.0 FL)</content> UNK 0 <content Saint styleCode="Bold Edward ">Nucleated Red Medical Blood Cell Center </content>0.0 /100<content styleCode="Ital ics"> (0 /100)</content> Erythrocyte 11.5-14. Above high <content Saint distribution 5 normal styleCode="Bold Edward width [Ratio] by ">Red Cell Medical Automated count Distribution Center Width </content>14.7 % H<content styleCode="Ital ics"> (11.5-14.5 %)</content> Platelets 130-400 <content Saint [#/volume] in styleCode="Bold Edward Blood by ">Platelet Medical Automated count Count Center </content>141 KCUMM<content styleCode="Ital ics"> (130-400 KCUMM)</content > UNK 1.6-7.1 Above high <content Saint normal styleCode="Bold Edward ">Immature Medical Platelet Center Fraction </content>9.3 % H<content styleCode="Ital ics"> (1.6-7.1 %)</content> UNK 0.0 <content Saint styleCode="Bold Edward ">Nucleated Red Medical Blood Cell Center Count </content>0.00 KCUMM<content styleCode="Ital ics"> (0.0 KCUMM)</content > ID Date Data Source GFR(Creatinine).[id number] 05/03/2019 05:43:00 AM EST [facility] 0-0500 Name Value Range Interpretation Code Description Data Anitha rce(s) Supporting Document(s ) UNK > 60 Below low normal <content [facility] styleCode="Bold"> Medical Cent er EGFR </content>25 GFR L<content styleCode="Italic s"> (> 60 GFR)</content> ID Date Data Source Coagulation 05/03/2019 05:43:00 AM [facility] Rout.[id number] EST Name Value Range Interpretation Description Data Sup porting Code Source(s) Document(s ) UNK 9.0-13.0 <content Saint styleCode="Bold" Edward >Protime Medical </content>10.0 Center SEC<content styleCode="Itali cs"> (9.0-13.0 SEC)</content> aPTT in 25.1-36. Above high normal <content Saint Platelet poor 5 styleCode="Bold" Edward plasma by >Partial Medical Coagulation Thromboplastin Center assay Time </content>38.5 SEC H<content styleCode="Itali cs"> (25.1-36.5 SEC)</content> INR in 0.80-1.2 <content Saint Platelet poor 0 styleCode="Bold" Edward plasma by >INR Medical Coagulation </content>0.90 Center assay #<content styleCode="Itali cs"> (0.80-1.20 #)</content> ID Date Data Source CHMROUTINECCDA.[id number] 05/03/2019 05:43:00 AM EST [facility] -0500 Name Value Range Interpretation Description Data Sup porting Code Source(s) Document(s ) Phosphate 2.5-4.5 <content Saint [Mass/volume] styleCode="Elida Bishops in Serum or d">Phosphorus Medical Plasma </content>4.4 Center MG/DL<content styleCode="Ros Emary lics"> (2.5-4.5 MG/DL)</conten t> UNK 2.3-3.5 <content Saint styleCode="Elida Edward d">Globulin Medical </content>3.0 Center G/DL<content styleCode="Rose Mary lics"> (2.3-3.5 G/DL)</content > UNK >= 1.0 <content Saint styleCode="Elida Bishops d">AG Ratio Medical </content>1.2 Center <content styleCode="Rose Mary lics"> (>= 1.0 )</content> Magnesium 1.6-2.3 <content Saint [Mass/volume] styleCode="Elida Bishops in Serum or d">Magnesium Medical Plasma </content>2.3 Center MG/DL<content styleCode="Rose Mary lics"> (1.6-2.3 MG/DL)</conten t> Protein 6.3-8.2 <content Saint [Mass/volume] styleCode="Elida Bishops in Serum or d">Total Medical Plasma Protein Center </content>6.6 G/DL<content styleCode="Rose Mary lics"> (6.3-8.2 G/DL)</content > ID Date Data Source [facility].[id number] 05/03/2019 05:43:00 AM EST [facility] Name Value Range Interpretation Description Data Sup porting Code Source(s) Document(s ) Sodium 137-145 <content Saint [Moles/volume] in styleCode="Bold"> [place] [facility] Serum or Plasma Sodium Medical </content>138 Center MEQ/L<content styleCode="Italic s"> (137-145 MEQ/L)</content> Carbon dioxide, 22-30 <content Saint total styleCode="Bold"> Edward [Moles/volume] in Carbon Dioxide Medical Serum or Plasma </content>23 Center MEQ/L<content styleCode="Italic s"> (22-30 MEQ/L)</content> Chloride 98-107 <content Saint [Moles/volume] in styleCode="Bold"> [facility] Serum or Plasma Chloride Medical </content>106 Center MEQ/L<content styleCode="Italic s"> (98-107 MEQ/L)</content> Potassium 3.5-5.3 <content Saint [Moles/volume] in styleCode="Bold"> [facility] Serum or Plasma Potassium Medical </content>4.0 Center MEQ/L<content styleCode="Italic s"> (3.5-5.3 MEQ/L)</content> Creatinine 0.5-1.3 Above high <content Saint [Mass/volume] in normal styleCode="Bold"> Zeb hs Serum or Plasma Creatinine Medical </content>2.7 Center MG/DL H<content styleCode="Italic s"> (0.5-1.3 MG/DL)</content> UNK 9-20 Above high <content Saint normal styleCode="Bold"> Edward BUN </content>26 Medical MG/DL H<content Center styleCode="Italic s"> (9-20 MG/DL)</content> Aspartate 17-59 <content Saint aminotransferase styleCode="Bold"> Zeb hs [Enzymatic Aspartate Medical activity/volume] Aminotransferase Center in Serum or Plasma (AST) </content>19 IU/L<content styleCode="Italic s"> (17-59 IU/L)</content> Glucose 74-106 Above high <content Saint [Mass/volume] in normal styleCode="Bold"> Zeb hs Serum or Plasma Glucose Medical </content>197 Center MG/DL H<content styleCode="Italic s"> (74-106 MG/DL)</content> UNK > 60 Below low <content Saint normal styleCode="Bold"> Edward EGFR </content>25 Medical GFR L<content Center styleCode="Italic s"> (> 60 GFR)</content> Calcium 8.4-10. <content Saint [Mass/volume] in 2 styleCode="Bold"> Zeb hs Serum or Plasma Calcium Medical </content>9.2 Center MG/DL<content styleCode="Italic s"> (8.4-10.2 MG/DL)</content> Alkaline 38-126 Above high <content Saint phosphatase normal styleCode="Bold"> Edward [Enzymatic Alkaline Medical activity/volume] Phosphatase (ALP) Cente r in Serum or Plasma </content>142 IU/L H<content styleCode="Italic s"> (38-126 IU/L)</content> Albumin 3.5-5.0 <content Saint [Mass/volume] in styleCode="Bold"> Zeb hs Serum or Plasma Albumin Medical </content>3.6 Center G/DL<content styleCode="Italic s"> (3.5-5.0 G/DL)</content> Bilirubin.total 0.2-1.3 Below low <content Saint [Mass/volume] in normal styleCode="Bold"> Zeb hs Serum or Plasma Bilirubin Total Medical </content>< 0.2 Center MG/DL L<content styleCode="Italic s"> (0.2-1.3 MG/DL)</content> Alanine 7-50 <content Saint aminotransferase styleCode="Bold"> Zeb hs [Enzymatic Alanine Medical activity/volume] Aminotransferase Center in Serum or Plasma (ALT) </content>17 IU/L<content styleCode="Italic s"> (7-50 IU/L)</content> ID Date Data Source [employer]iacMarkers.[id number] 05/03/2019 01:20:00 AM EST [place] [facility] -0500 Name Value Range Interpretation Description Data Sup porting Code Source(s) Document(s ) Troponin < 0.034 Above upper panic <content Saint I.cardiac limits styleCode="Bold Edward [Mass/volume ">Troponin I Medical ] in Serum </content><cont Center or Plasma ent styleCode="Bold ">0.050 NG/ML HH</content><co ntent styleCode="Ital ics"> (< 0.034 NG/ML)</content > ID Date Data Source Urinalysis.[id number] 05/02/2019 11:30:00 PM EST [place] [facility] 0 Name Value Range Interpretation Description Data Sup porting Code Source(s) Document(s ) Color of Urine YELLOW <content Saint styleCode="Elida Bishops d">Color, Medical Urine Center </content>YELL OW <content styleCode="Rose Mary lics"> (YELLOW )</content> UNK CLEAR <content Saint styleCode="Elida Bishops d">Urine Medical Clarity Center </content>Sl CLOUDY <content styleCode="Rose [facility] lics"> (CLEAR )</content> Glucose NEGATIVE <content Saint [Mass/volume] styleCode="Elida Leon in Urine by d">Urine Medical Test strip Glucose Center </content>100 MG/DL<content styleCode="Rose Mary lics"> (NEGATIVE MG/DL)</conten t> UNK NEGATIVE <content Saint styleCode="Elida Bishops d">Urine Medical Bilirubin Center </content>NEGA TIVE <content styleCode="Rose [facility] lics"> (NEGATIVE )</content> Ketones NEGATIVE <content Saint [Mass/volume] styleCode="Elida Leon in Urine by d">Urine Medical Test strip Ketone Center </content>NEGA TIVE MG/DL<content styleCode="Rose Mary lics"> (NEGATIVE MG/DL)</conten t> Hemoglobin NEGATIVE <content Saint [Presence] in styleCode="Elida Leon Urine by Test d">Urine Blood Medical strip </content>NEGA Center TIVE <content styleCode="Rose Mary lics"> (NEGATIVE )</content> pH of Urine by 4.5-8.0 <content Saint Test strip styleCode="Elida Bishops d">Urine pH Medical </content>7.0 Center <content styleCode="Rose Mary lics"> (4.5-8.0 )</content> Specific 1.015-1.02 <content Saint gravity of 5 styleCode="Elida Leon Urine by Test d">Urine Medical strip Specific Center [place] </content>1.01 5 <content styleCode="Rose Mary lics"> (1.015-1.025 )</content> Protein NEGATIVE <content Saint [Mass/volume] styleCode="Elida Leon in Urine by d">Urine Medical Test strip Protein Center </content>300 mg/dl MG/DL<content styleCode="Rose Mary lics"> (NEGATIVE MG/DL)</conten t> Urobilinogen 0.2-1.0 <content Saint [Units/volume] styleCode="Elida Bishops in Urine by d">Urine Medical Test strip Urobilinogen Center </content>0.2 MG/DL<content styleCode="Rose Mary lics"> (0.2-1.0 MG/DL)</conten t> Nitrite NEGATIVE <content Saint [Presence] in styleCode="Elida Leon Urine by Test d">Urine Medical strip Nitrite Center </content>POSI TIVE <content styleCode="[facility] lics"> (NEGATIVE )</content> Leukocyte NEGATIVE <content Saint esterase styleCode="Elida Leon [Presence] in d">Urine Medical Urine by Test Leukocyte Center strip </content>NEGA TIVE <content styleCode="Rose Mary lics"> (NEGATIVE )</content> UNK 0-3 <content Saint styleCode="Elida Edward d">Urine Red Medical Blood Cell Center </content>0-3 HPF<content styleCode="Rose Mary lics"> (0-3 HPF)</content> UNK 0-3 <content Saint styleCode="Elida Edward d">Urine White Medical Blood Cell Center </content>0-3 HPF<content styleCode="Rose Mary lics"> (0-3 HPF)</content> UNK NEGATIVE <content Saint styleCode="Elida Edward d">Urine Medical Bacteria Center </content>MANY HPF<content styleCode="[facility] lics"> (NEGATIVE HPF)</content> UNK NONE SEEN <content Saint styleCode="Elida Edward d">Epithelial Medical Cell Center </content>2-5 HPF<content styleCode="Rose Mary lics"> (NONE SEEN HPF)</content> ID Date Data Source Microbiology.[id number] 05/02/2019 11:30:00 PM EST [place] [facility] 500 Name Value Range Interpretation Code Description Data Anitha rce(s) Supporting Document(s ) UNK <item><content [facility] styleCode="Bold">[facility] Report </content>
<ta ble><tbody><tr><td >Specimen Number:</td><td>[id number]</td></tr>< tr><td>Sample Collection Date/Time: </td><td>05/02/2019 11:30 PM</td></tr><tr><t d>Specimen Source:</td><td>UR INE</td></tr><tr>< td>Urine Culture:</td><td>C ollection Plate Date: 05/03/2019 00:05 </td></tr><tr><td> Culture Status:</td><td>Pr eliminary </td></tr><tr><td> Culture Report:</td><td>Cu lture in progress </td></tr></tbody> </table></item> UNK <item><content [facility] styleCode="Bold">[facility] Status </content>
<ta ble><tbody><tr><td >Specimen Number:</td><td>[id number]</td></tr>< tr><td>Sample Collection Date/Time: </td><td>05/02/2019 11:30 PM</td></tr><tr><t d>Specimen Source:</td><td>UR INE</td></tr><tr>< td>Culture Status:</td><td>Fi nal </td></tr><tr><td> Culture Report:</td><td>PL EASE REPEAT SPECIMEN COLLECTION </td></tr><tr><td> Urine Culture:</td><td>C ollection Plate Date: 05/03/2019 00:05 </td></tr><tr><td> Organism 1:</td><td>GRAM NEGATIVE BACILLI </td></tr><tr><td> Organism 2:</td><td>GRAM NEGATIVE BACILLI </td></tr><tr><td> Organism 3:</td><td>ENTEROC OCCUS SPECIES </td></tr><tr><td> Organism 4:</td><td>GRAM NEGATIVE BACILLI </td></tr></tbody> </table>
<tabl e border="2"><tbody> <tr><td></td><td>1 </td><td>2</td><td >3</td><td>4</td>< /tr><tr><td>Commen t</td><td></td><td ></td><td></td><td ></td></tr><tr><td >Result Value</td><td>GRAM NEGATIVE BACILLI </td><td>GRAM NEGATIVE BACILLI </td><td>ENTEROCOC CUS SPECIES </td><td>GRAM NEGATIVE BACILLI </td></tr><tr><td> Result Status</td><td>Fin al Result</td><td>Fin al Result</td><td>Fin al Result</td><td>Fin al Result</td></tr><t r><td></td><td></t d><td></td><td></t d><td></td></tr></ tbody></table></it em> ID Date Data Source LIPID.[id number] 05/02/2019 10:00:00 PM EST [facility] Name Value Range Interpretation Description Data Sup porting Code Source(s) Document(s ) Cholesterol -<200 <content Saint [Mass/volume] styleCode="Bold"> Edward in Serum or Cholesterol Medical Plasma </content>166 Center MG/DL<content styleCode="Italic s"> (-<200 MG/DL)</content> Triglyceride < 150 Above high normal <content Saint [Mass/volume] styleCode="Bold"> Edward in Serum or Triglycerides Medical Plasma </content>254 Center MG/DL H<content styleCode="Italic s"> (< 150 MG/DL)</content> UNK <content Saint styleCode="Bold"> Edward LDL-Cholesterol Medical </content> Center (Reference Range: not available)
<c ontent styleCode="xLocal PreformattedText" >Triglycerides are >250 mg/dl; therefore, the LDL calculation is invalid.
Chol esterol electrophoresis is recommended if medically appropriate.</con tent> UNK > 60 Below low normal <content Saint styleCode="Bold"> Edward HDL- Cholesterol Medical </content>30 Center MG/DL L<content styleCode="Italic s"> (> 60 MG/DL)</content> ID Date Data Source HematologyRou.[id number] 05/02/2019 10:00:00 PM EST [place] [facility] 0500 Name Value Range Interpretation Description Data Sup porting Code Source(s) Document(s ) Leukocytes 4.4-11.0 <content Saint [#/volume] in styleCode="Bold Edward Blood by ">White Blood Medical Automated count Cell Count Center </content>8.97 KCUMM<content styleCode="Ital ics"> (4.4-11.0 KCUMM)</content > Hematocrit 41.0-53. Below low normal <content Saint [Volume 0 styleCode="Bold Edward Fraction] of ">Hematocrit Medical Blood by </content>32.9 Center Automated count % L<content styleCode="Ital ics"> (41.0-53.0 %)</content> Erythrocytes 4.4-5.9 Below low normal <content Saint [#/volume] in styleCode="Bold Edward Blood by ">Red Blood Medical Automated count Cell Count Center </content>4.05 MCUMM L<content styleCode="Ital ics"> (4.4-5.9 MCUMM)</content > Hemoglobin 13.5-17. Below low normal <content Saint [Mass/volume] in 5 styleCode="Bold Edward Blood ">Hemoglobin Medical </content>10.7 Center G/DL L<content styleCode="Ital ics"> (13.5-17.5 G/DL)</content> Erythrocyte mean 80.0-100 <content Saint corpuscular .0 styleCode="Bold Edward volume [Entitic ">Mean Medical volume] by Corpuscular Center Automated count Volume </content>81.2 FL<content styleCode="Ital ics"> (80.0-100.0 FL)</content> Erythrocyte mean 32.0-37. <content Saint corpuscular 0 styleCode="Bold Edward hemoglobin ">Mean Corpus. Medical concentration Hgb Center [Mass/volume] by Concentration Automated count (MCHC) </content>32.5 G/DL<content styleCode="Ital ics"> (32.0-37.0 G/DL)</content> Erythrocyte 11.5-14. Above high <content Saint distribution 5 normal styleCode="Bold Edward width [Ratio] by ">Red Cell Medical Automated count Distribution Center Width </content>14.9 % H<content styleCode="Ital ics"> (11.5-14.5 %)</content> Erythrocyte mean 26.0-34. <content Saint corpuscular 0 styleCode="Bold Edward hemoglobin ">Mean Medical [Entitic mass] Corposcular Center by Automated Hemoglobin count </content>26.4 PG<content styleCode="Ital ics"> (26.0-34.0 PG)</content> Platelets 130-400 <content Saint [#/volume] in styleCode="Bold Edward Blood by ">Platelet Medical Automated count Count Center </content>142 KCUMM<content styleCode="Ital ics"> (130-400 KCUMM)</content > UNK 0 <content Saint styleCode="Bold Edward ">Nucleated Red Medical Blood Cell Center </content>0.0 /100<content styleCode="Ital ics"> (0 /100)</content> Platelet mean 8.0-11.0 Above high <content Saint volume [Entitic normal styleCode="Bold Edward volume] in Blood ">Mean Platelet Medical by Automated Volume Center count </content>12.5 FL H<content styleCode="Ital ics"> (8.0-11.0 FL)</content> UNK 1.6-7.1 Above high <content Saint normal styleCode="Bold Edward ">Immature Medical Platelet Center Fraction </content>8.9 % H<content styleCode="Ital ics"> (1.6-7.1 %)</content> UNK 0.0 <content Saint styleCode="Bold Edward ">Nucleated Red Medical Blood Cell Center Count </content>0.00 KCUMM<content styleCode="Ital ics"> (0.0 KCUMM)</content > ID Date Data Source GFR(Creatinine).[id number] 05/02/2019 10:00:00 PM EST [place] [facility] 0-0500 Name Value Range Interpretation Code Description Data Anitha rce(s) Supporting Document(s ) UNK > 60 Below low normal <content [facility] styleCode="Bold"> Medical Cent er EGFR </content>24 GFR L<content styleCode="Italic s"> (> 60 GFR)</content> ID Date Data Source Coagulation 05/02/2019 10:00:00 PM [facility] ical Center Rout.[id number] EST Name Value Range Interpretation Description Data Sup porting Code Source(s) Document(s ) INR in 0.80-1.2 <content Saint Platelet poor 0 styleCode="Bold" Edward plasma by >INR Medical Coagulation </content>0.86 Center assay #<content styleCode="Itali cs"> (0.80-1.20 #)</content> UNK 9.0-13.0 <content Saint styleCode="Bold" Edward >Protime Medical </content>9.6 Center SEC<content styleCode="Itali cs"> (9.0-13.0 SEC)</content> aPTT in 25.1-36. Above high normal <content Saint Platelet poor 5 styleCode="Bold" [facility] plasma by >Partial [facility] Coagulation Thromboplastin [place] assay Time </content>37.4 SEC H<content styleCode="Itali cs"> (25.1-36.5 SEC)</content> UNK < 500 <content Saint styleCode="Bold" Edward >D-Dimer Medical </content>214 Center ngFEU<content styleCode="Itali cs"> (< 500 ngFEU)</content> ID Date [id number] 05/02/2019 10:00:00 PM EST [facility] -0500 Name Value Range Interpretation Description Data Sup porting Code Source(s) Document(s ) Natriuretic < 125 Above high normal <content Saint peptide.B styleCode="Elida Edward prohormone d">NT Pro BNP Medical N-Terminal </content>583 Center [Mass/volume] PG/ML in Serum or H<content Plasma styleCode="Rose Mary lics"> (< 125 PG/ML)</conten t> ID Date Data Source CardiacMarkers.[id number] 05/02/2019 10:00:00 PM EST [facility] -0500 Name Value Range Interpretation Description Data Sup porting Code Source(s) Document(s ) Troponin < 0.034 Above upper panic <content Saint I.cardiac limits styleCode="Bold Edward [Mass/volume ">Troponin I Medical ] in Serum </content><cont Center or Plasma ent styleCode="Bold ">0.050 NG/ML HH</content><co ntent styleCode="Ital ics"> (< 0.034 NG/ML)</content > ID Date Data Source BMP.[id number] 05/02/2019 10:00:00 PM EST [facility] Name Value Range Interpretation Description Data Sup porting Code Source(s) Document(s ) Sodium 137-145 Below low normal <content Saint [Moles/volume] styleCode="Elida Edward in Serum or d">Sodium Medical Plasma </content>136 Center MEQ/L L<content styleCode="Rose Mary lics"> (137-145 MEQ/L)</conten t> Potassium 3.5-5.3 <content Saint [Moles/volume] styleCode="Elida Edward in Serum or d">Potassium Medical Plasma </content>3.7 Center MEQ/L<content styleCode="Rose Mary lics"> (3.5-5.3 MEQ/L)</conten t> Chloride 98-107 <content Saint [Moles/volume] styleCode="Elida Edward in Serum or d">Chloride Medical Plasma </content>104 Center MEQ/L<content styleCode="Rose Mary lics"> (98-107 MEQ/L)</conten t> Glucose 74-106 Above high normal <content Saint [Mass/volume] styleCode="Elida Edward in Serum or d">Glucose Medical Plasma </content>209 Center MG/DL H<content styleCode="Rose Mary lics"> (74-106 MG/DL)</conten t> UNK 9-20 Above high normal <content Saint styleCode="Elida Edward d">BUN Medical </content>29 Center MG/DL H<content styleCode="Rose Mary lics"> (9-20 MG/DL)</conten t> Creatinine 0.5-1.3 Above high normal <content Saint [Mass/volume] styleCode="Elida Edward in Serum or d">Creatinine Medical Plasma </content>2.8 Center MG/DL H<content styleCode="Rose Mary lics"> (0.5-1.3 MG/DL)</conten t> Carbon 22-30 <content Saint dioxide, total styleCode="Elida Edward [Moles/volume] d">Carbon Medical in Serum or Dioxide Center Plasma </content>23 MEQ/L<content styleCode="Rose Mary lics"> (22-30 MEQ/L)</conten t> UNK > 60 Below low normal <content Saint styleCode="Elida Edward d">EGFR Medical </content>24 Center GFR L<content styleCode="Rose Mary lics"> (> 60 GFR)</content> Calcium 8.4-10.2 <content Saint [Mass/volume] styleCode="Elida Edward in Serum or d">Calcium Medical Plasma </content>9.0 Center MG/DL<content styleCode="Rose Mary lics"> (8.4-10.2 MG/DL)</conten t> Procedure Social History Code Duration Value Status Description Data Source(s ) Smoking 04/01/2020 12:00:00 Never Smoker completed Never Smoker e CW1 ([facility] ) Smoking 03/04/2020 12:00:00 Never Smoker completed Never Smoker e CW1 ([facility] ) Smoking 03/04/2020 12:00:00 Never Smoker completed Never Smoker e CW1 ([facility] ) Smoking 03/04/2020 12:00:00 Never Smoker completed Never Smoker e CW1 ([facility] ) Smoking 02/06/2020 12:00:00 Never Smoker completed Never Smoker e CW1 ([facility] ) Smoking 01/22/2020 12:00:00 Never Smoker completed Never Smoker e CW1 ([facility] ) Smoking 01/22/2020 12:00:00 Never Smoker completed Never Smoker e CW1 ([facility] ) Smoking 01/02/2020 12:00:00 Never Smoker completed Never Smoker e CW1 ([facility] ) Smoking 12/03/2019 12:00:00 Never Smoker completed Never Smoker e CW1 ([facility] ) Smoking 12/03/2019 12:00:00 Never Smoker completed Never Smoker e CW1 ([facility] ) Smoking 08/27/2019 10:27:00 Former Smoker completed Former Smoker [facility] Smoking 08/27/2019 01:58:00 Former Smoker completed Former Smoker [facility] Smoking 08/27/2019 09:06:00 Former Smoker completed Former Smoker [facility] Smoking 08/27/2019 08:20:00 Former Smoker completed Former Smoker [facility] Smoking 08/27/2019 08:11:00 Former Smoker completed Former Smoker [facility] Smoking 05/03/2019 07:58:00 Former Smoker completed Former Smoker [facility] Smoking 05/02/2019 10:06:00 Former Smoker completed Former Smoker [facility] Smoking 05/02/2019 08:59:00 Former Smoker completed Former Smoker [facility] Smoking 05/02/2019 08:44:00 Former Smoker completed Former Smoker [facility] Smoking 02/08/2019 07:05:00 Former Smoker completed Former Smoker [facility] Smoking 02/08/2019 06:55:00 Former Smoker completed Former Smoker [facility] Smoking 02/08/2019 06:50:00 Former Smoker completed Former Smoker [facility] Vital Signs ID Date Data Source UNK Name Value Range Interpretation Code Description Data Source(s) Diastolic blood 81 mm[Hg] 81 mm[Hg] eCW1 ([place] [facility]) Systolic blood 140 mm[Hg] 140 mm[Hg] eCW1 ([place] t pressure [facility]) Oxygen saturation 98 % 98 % eCW1 (S aint in Arterial blood [facility] by [facility]) Body temperature 98.6 [degF] 98.6 [degF] eCW1 ( [facility]) Respiratory rate 18 /min 18 /min eCW1 ([facility]) Heart rate 74 /min 74 /min eCW1 ([facility]) Body mass index 30.55 kg/m2 30.55 kg/m2 eCW1 (S aint (BMI) [Ratio] [facility]) Body weight 178 [lb_av] 178 [lb_av] eCW1 ([facility]) Body height [in_i] eCW1 ([facility]) Diastolic blood 64 mm[Hg] 64 mm[Hg] eCW1 ([place] [facility]) Systolic blood 118 mm[Hg] 118 mm[Hg] eCW1 ([place] t pressure [facility]) Oxygen saturation 94 % 94 % eCW1 (S aint in Arterial blood [facility]) Body temperature 98.2 [degF] 98.2 [degF] eCW1 ( [facility]) Respiratory rate 18 /min 18 /min eCW1 ([facility]) Heart rate 76 /min 76 /min eCW1 ([facility]) Body mass index 30.72 kg/m2 30.72 kg/m2 eCW1 (S aint (BMI) [Ratio] [facility]) Body weight 179 [lb_av] 179 [lb_av] eCW1 ([facility]) Body height [in_i] eCW1 ([facility]) Diastolic blood 72 mm[Hg] 72 mm[Hg] eCW1 ([facility] nt pressure [facility]) Systolic blood 133 mm[Hg] 133 mm[Hg] eCW1 [facility]) Oxygen saturation 98 % 98 % eCW1 (S aint in Arterial blood [facility] Medical by [facility]) Body temperature 100.1 [degF] 100.1 [degF] eCW1 ([facility]) Respiratory rate 18 /min 18 /min eCW1 ([facility]) Heart rate 82 /min 82 /min eCW1 ([facility]) Body mass index 30.21 kg/m2 30.21 kg/m2 eCW1 (S aint (BMI) [Ratio] [facility]) Body weight 176 [lb_av] 176 [lb_av] eCW1 ([facility]) Body height [in_i] eCW1 ([facility]) Diastolic blood 78 mm[Hg] 78 mm[Hg] eCW1 ([facility] nt pressure [facility]) Systolic blood 150 mm[Hg] 150 mm[Hg] eCW1 ([facility] t pressure [facility]) Body temperature 98.8 [degF] 98.8 [degF] eCW1 ( [facility]) Respiratory rate 18 /min 18 /min eCW1 ( int [facility]) Heart rate 80 /min 80 /min eCW1 ([facility]) Body mass index 30.55 kg/m2 30.55 kg/m2 eCW1 (S aint (BMI) [Ratio] [facility]) Body weight 178 [lb_av] 178 [lb_av] eCW1 ([facility]) Body height [in_i] eCW1 ([facility]) Diastolic blood 84 mm[Hg] 84 mm[Hg] eCW1 ([place] [facility]) Systolic blood 151 mm[Hg] 151 mm[Hg] eCW1 ([place] [facility]) Body temperature 98.7 [degF] 98.7 [degF] eCW1 ( [facility]) Respiratory rate 78 /min 78 /min [facility] Heart rate 78 /min 78 /min eCW1 ([facility] Body mass index 31.24 kg/m2 31.24 kg/m2 eCW1 (S aint (BMI) [Ratio] [facility]) Body weight 182 [lb_av] 182 [lb_av] eCW1 ([facility]) Body height [in_i] eCW1 ([facility]) Diastolic blood 82 mm[Hg] 82 mm[Hg] eCW1 ([place] [facility] Systolic blood 146 mm[Hg] 146 mm[Hg] eCW1 ([place] [facility]) Body temperature 99.1 [degF] 99.1 [degF] eCW1 ( [facility]) Respiratory rate 18 /min 18 /min eCW1 ([facility] Heart rate 78 /min 78 /min eCW1 ([facility] Body mass index 31.24 kg/m2 31.24 kg/m2 eCW1 (S aint (BMI) [Ratio] [facility]) Body weight 182 [lb_av] 182 [lb_av] eCW1 ([facility]) Body height [in_i] eCW1 ([facility]) Diastolic blood 80 mm[Hg] 80 mm[Hg] eCW1 ([place] [facility]) Systolic blood 140 mm[Hg] 140 mm[Hg] eCW1 ([place] [facility]) Body temperature 98.2 [degF] 98.2 [degF] eCW1 ( [facility]) Respiratory rate 18 /min 18 /min eCW1 ( int [facility]) Body mass index 31.24 kg/m2 31.24 kg/m2 eCW1 (S aint (BMI) [Ratio] [facility]) Body weight 182 [lb_av] 182 [lb_av] eCW1 ([facility] Body height [in_us] eCW1 ([facility]) Diastolic blood 80 mm[Hg] 80 mm[Hg] eCW1 ([place] [facility]) Systolic blood 144 mm[Hg] 144 mm[Hg] eCW1 ([facility] t pressure [facility]) Body temperature 98.5 [degF] 98.5 [degF] eCW1 ( [facility]) Respiratory rate 18 /min 18 /min eCW1 ([facility]) Heart rate 76 /min 76 /min eCW1 ([facility]) Body mass index 31.24 kg/m2 31.24 kg/m2 eCW1 (S aint (BMI) [Ratio] [facility]) Body weight 182 [lb_av] 182 [lb_av] eCW1 ([facility] Body height [in_us] eCW1 ([facility]) Heart rate 77 /min 77 /min [facility] Diastolic blood 86 mm[Hg] 86 mm[Hg] [facility] Center Systolic blood 154 mm[Hg] 154 mm[Hg] [facility] Body temperature 36.352151 36.277762 [facility] Respiratory rate 20 /min 20 /min [facility] Heart rate 83 /min 83 /min [facility] Diastolic blood 96 mm[Hg] 96 mm[Hg] [facility] Center Systolic blood 166 mm[Hg] 166 mm[Hg] [facility] [place] Body temperature 37.557829 37.196390 [facility] Respiratory rate 20 /min 20 /min [facility] Heart rate 92 /min 92 /min [facility] Diastolic blood 81 mm[Hg] 81 mm[Hg] [facility] pressure Medical Center Systolic blood 149 mm[Hg] 149 mm[Hg] [facility] Diastolic blood 79 mm[Hg] 79 mm[Hg] [facility] Center Systolic blood 144 mm[Hg] 144 mm[Hg] [facility] Body temperature 37.853747 37.599183 [facility] Respiratory rate 20 /min 20 /min [facility] Heart rate 101 /min 101 /min [facility] Body temperature 36.069819 36.571862 [facility] Respiratory rate 18 /min 18 /min [facility] Heart rate 95 /min 95 /min [facility] Diastolic blood 76 mm[Hg] 76 mm[Hg] [facility] Systolic blood 132 mm[Hg] 132 mm[Hg] [facility] Body weight 80.031397 kg 80.420970 kg [facility] Body height 162.196271 162.240245 cm [facility] Body mass index 30.42 kg/m2 30.42 kg/m2 [facility] osep (BMI) [Ratio] Medical [facility] ter Heart rate 90 /min 90 /min [facility] Diastolic blood 78 mm[Hg] 78 mm[Hg] [facility] Systolic blood 139 mm[Hg] 139 mm[Hg] [facility] Body temperature 37.086050 37.218969 [facility] Respiratory rate 20 /min 20 /min [facility] Body temperature 37.831562 37.953741 [facility] Respiratory rate 18 /min 18 /min [facility] Heart rate 89 /min 89 /min [facility] Diastolic blood 84 mm[Hg] 84 mm[Hg] [facility] pressure Medical Center Systolic blood 151 mm[Hg] 151 mm[Hg] [facility] Oxygen saturation 98 % 98 % [facility] blood [facility] by Pulse oximetry Body temperature 37.490472 37.666317 [facility] Respiratory rate 18 /min 18 /min [facility] Heart rate 86 /min 86 /min [facility] Diastolic blood 86 mm[Hg] 86 mm[Hg] [facility] pressure Medical Center Systolic blood 153 mm[Hg] 153 mm[Hg] [facility] Center Oxygen saturation 95 % 95 % [facility] blood [facility] by Pulse oximetry Body temperature 36.911654 36.160511 [facility] Respiratory rate 17 /min 17 /min [facility] Heart rate 75 /min 75 /min [facility] Diastolic blood 77 mm[Hg] 77 mm[Hg] [facility] Systolic blood 149 mm[Hg] 149 mm[Hg] [facility] Oxygen saturation 93 % 93 % [facility] Ar[facility] blood [facility] Center by Pulse oximetry Oxygen saturation 97 % 97 % [facility] blood [facility] Center by Pulse oximetry Body weight 81.971233 kg 81.405691 kg [facility] Oxygen saturation 96 % 96 % [facility] blood [facility] by Pulse oximetry Body height 162.113297 162.966102 cm [facility] Body mass index 30.8 kg/m2 30.8 kg/m2 [facility] (BMI) [Ratio] [facility] Diastolic blood 70 mm[Hg] 70 mm[Hg] eCW1 ([place] [facility]) Systolic blood 140 mm[Hg] 140 mm[Hg] eCW1 ([facility] pressure [facility]) Body temperature 98.4 [degF] 98.4 [degF] eCW1 ( [facility]) Respiratory rate 16 /min 16 /min eCW1 ([facility]) Heart rate 72 /min 72 /min eCW1 ([facility]) Body mass index 31.92 kg/m2 31.92 kg/m2 eCW1 (S aint (BMI) [Ratio] [facility]) Body weight 186 [lb_av] 186 [lb_av] eCW1 ([facility]) Body height [in_us] eCW1 ([facility]) Diastolic blood 80 mm[Hg] 80 mm[Hg] eCW1 ([place] [facility]) Systolic blood 157 mm[Hg] 157 mm[Hg] eCW1 ([place] pressure [facility]) Deprecated Oxygen 98 % 98 % eCW1 (S aint saturation in [facility] Med ical Capillary blood by [facility]) Oximetry Body temperature 97.7 [degF] 97.7 [degF] eCW1 ( [facility]) Respiratory rate 18 /min 18 /min [facility] Heart rate 74 /min 74 /min eCW1 ([facility]) Body mass index 30.89 kg/m2 30.89 kg/m2 eCW1 (S aint (BMI) [Ratio] [facility]) Body weight 180 [lb_av] 180 [lb_av] eCW1 ([facility]) Body height [in_us] eCW1 ([facility]) Diastolic blood 71 mm[Hg] 71 mm[Hg] eCW1 ([place] [facility]) Systolic blood 140 mm[Hg] 140 mm[Hg] eCW1 ([facility]) Deprecated Oxygen 100 % 100 % eCW1 ([facility]int saturation in [facility]) Oximetry Body temperature 98 [degF] 98 [degF] eCW1 ([facility]) Respiratory rate 19 /min 19 /min eCW1 ([facility]) Heart rate 76 /min 76 /min eCW1 [facility] Body mass index 31.41 kg/m2 31.41 kg/m2 eCW1 (S aint (BMI) [Ratio] [facility]) Body weight 183 [lb_av] 183 [lb_av] eCW1 ([facility] Body height [in_us] eCW1 ([facility]) Diastolic blood 83 mm[Hg] 83 mm[Hg] eCW1 ([place] [facility]) Systolic blood 140 mm[Hg] 140 mm[Hg] eCW1 ([facility]) Body temperature 97.8 [degF] 97.8 [degF] eCW1 ( [facility]) Heart rate 72 /min 72 /min eCW1 ([facility]) Body mass index 32.44 kg/m2 32.44 kg/m2 eCW1 (S aint (BMI) [Ratio] [facility]) Body weight 189 [lb_av] 189 [lb_av] eCW1 ([facility]) Body height [in_us] eCW1 ([facility]) Diastolic blood 79 mm[Hg] 79 mm[Hg] eCW1 ([place] [facility]) Systolic blood 157 mm[Hg] 157 mm[Hg] eCW1 ([place] t pressure [facility]) Body temperature 97.8 [degF] 97.8 [degF] eCW1 ( [facility]) Respiratory rate 19 /min 19 /min eCW1 ( int [facility]) Heart rate 78 /min 78 /min eCW1 ([facility]) Body mass index 32.44 kg/m2 32.44 kg/m2 eCW1 (S aint (BMI) [Ratio] [facility]) Body weight 189 [lb_av] 189 [lb_av] eCW1 ([facility] Body height [in_us] eCW1 ([facility]) Diastolic blood 70 mm[Hg] 70 mm[Hg] eCW1 ([place] [facility]) Systolic blood 136 mm[Hg] 136 mm[Hg] eCW1 ([facility] t pressure [facility]) Deprecated Oxygen 99 % 99 % eCW1 (S aint saturation in [facility] Capillary blood by [facility]) Oximetry Body temperature 98.7 [degF] 98.7 [degF] eCW1 ( [facility]) Respiratory rate 19 /min 19 /min eCW1 ( int [facility]) Heart rate 70 /min 70 /min eCW1 ([facility]) Body mass index 32.44 kg/m2 32.44 kg/m2 eCW1 (S aint (BMI) [Ratio] [facility]) Body weight 189 [lb_av] 189 [lb_av] eCW1 ([facility]) Body height [in_us] eCW1 ([facility]) Diastolic blood 70 mm[Hg] 70 mm[Hg] eCW1 ([place] [facility]) Systolic blood 136 mm[Hg] 136 mm[Hg] eCW1 ([facility] t pressure [facility]) Oxygen saturation 99 % 99 % eCW1 (S aint in Arterial blood [facility] by Pulse oximetry Pract[facility]) Body temperature 98.7 [degF] 98.7 [degF] eCW1 ( [facility]) Respiratory rate 19 /min 19 /min eCW1 ( int [facility]) Heart rate 70 /min 70 /min eCW1 ([facility]) Body mass index 32.44 kg/m2 32.44 kg/m2 eCW1 (S aint (BMI) [Ratio] [facility]) Body weight 189 [lb_av] 189 [lb_av] eCW1 ([facility]) Body height [in_i] eCW1 ([facility]) Diastolic blood 87 mm[Hg] 87 mm[Hg] eCW1 ([place] [facility]) Systolic blood 140 mm[Hg] 140 mm[Hg] eCW1 ([facility]) Deprecated Oxygen 98 % 98 % eCW1 (S aint saturation in [facility] blood by [facility]) Oximetry Body temperature 98.0 [degF] 98.0 [degF] eCW1 ( [facility]) Respiratory rate 18 /min 18 /min eCW1 ( int [facility]) Heart rate 73 /min 73 /min eCW1 ([facility]) Body mass index 32.27 kg/m2 32.27 kg/m2 eCW1 (S aint (BMI) [Ratio] [facility]) Body weight 188 [lb_av] 188 [lb_av] eCW1 ([facility]) Body height [in_us] eCW1 ([facility]) Diastolic blood 70 mm[Hg] 70 mm[Hg] eCW1 ([place] [facility]) Systolic blood 128 mm[Hg] 128 mm[Hg] eCW1 ([place] [facility] pressure [facility]) Deprecated Oxygen 95 % 95 % eCW1 (S aint saturation in [facility] Med ica Capillary blood by Practi [facility] PC) Oximetry Body temperature 97.3 [degF] 97.3 [degF] eCW1 ( [facility]) Respiratory rate 18 /min 18 /min eCW1 ( int [facility]) Heart rate 74 /min 74 /min eCW1 ([facility]) Body mass index 30.55 kg/m2 30.55 kg/m2 eCW1 (S aint (BMI) [Ratio] [facility]) Body weight 178 [lb_av] 178 [lb_av] eCW1 ([facility]) Body height [in_us] eCW1 ([facility]) Diastolic blood 82 mm[Hg] 82 mm[Hg] eCW1 ([place] [facility]) Systolic blood 145 mm[Hg] 145 mm[Hg] eCW1 ([place] [facility] pressure [facility]) Deprecated Oxygen 98 % 98 % eCW1 (S aint saturation in [facility] ica [facility] Oximetry Body temperature 97.8 [degF] 97.8 [degF] eCW1 ( [facility]) Respiratory rate 18 /min 18 /min eCW1 ( [facility]) Heart rate 81 /min 81 /min eCW1 ([facility]) Body mass index 32.27 kg/m2 32.27 kg/m2 eCW1 (S aint (BMI) [Ratio] [facility]) Body weight 188 [lb_av] 188 [lb_av] eCW1 ([facility]) Body height [in_us] eCW1 ([facility]) Body temperature 36.196217 36.909460 [facility] Respiratory rate 20 /min 20 /min [facility] Heart rate 77 /min 77 /min [facility] Diastolic blood 92 mm[Hg] 92 mm[Hg] [facility] Systolic blood 158 mm[Hg] 158 mm[Hg] [facility] Body temperature 37.586882 37.073238 [facility] Respiratory rate 20 /min 20 /min [facility] Heart rate 77 /min 77 /min [facility] Diastolic blood 77 mm[Hg] 77 mm[Hg] [facility] [place] Systolic blood 154 mm[Hg] 154 mm[Hg] [facility] Body temperature 36.082267 36.090943 [facility] Respiratory rate 20 /min 20 /min [facility] Heart rate 81 /min 81 /min [facility] Diastolic blood 71 mm[Hg] 71 mm[Hg] [facility] Systolic blood 140 mm[Hg] 140 mm[Hg] [facility] Body temperature 36.142447 36.668017 [facility] Respiratory rate 20 /min 20 /min [facility] Heart rate 87 /min 87 /min [facility] Diastolic blood 77 mm[Hg] 77 mm[Hg] [facility] pressure Medical Center Systolic blood 138 mm[Hg] 138 mm[Hg] [facility] Body temperature 36.948692 36.173665 [facility] Respiratory rate 20 /min 20 /min [facility] Heart rate 82 /min 82 /min [facility] Diastolic blood 83 mm[Hg] 83 mm[Hg] [facility] Systolic blood 146 mm[Hg] 146 mm[Hg] [facility] Body weight 84.401204 kg 84.041779 kg [facility] Measured [facility] Body height 162.736950 162.071613 cm [facility] Body mass index 32.09 kg/m2 32.09 kg/m2 [facility] (BMI) [Ratio] [facility] Body temperature 36.349166 36.840390 [facility] Respiratory rate 20 /min 20 /min [facility] Heart rate 89 /min 89 /min [facility] Diastolic blood 90 mm[Hg] 90 mm[Hg] [facility] Systolic blood 167 mm[Hg] 167 mm[Hg] [facility] [place] Body temperature 36.919250 36.602079 [facility] Respiratory rate 20 /min 20 /min [facility] Heart rate 90 /min 90 /min [facility] Diastolic blood 84 mm[Hg] 84 mm[Hg] [facility] Systolic blood 161 mm[Hg] 161 mm[Hg] [facility] Body weight 84.197758 kg 84.004392 kg [facility] Measured [facility] Body height 162.242012 162.400249 cm [facility] Body mass index 32.09 kg/m2 32.09 kg/m2 [facility] osep (BMI) [Ratio] [facility] Body temperature 36.319765 36.713601 [facility] Respiratory rate 20 /min 20 /min [facility] Heart rate 79 /min 79 /min [facility] Diastolic blood 84 mm[Hg] 84 mm[Hg] [facility] pressure Medical Center Systolic blood 150 mm[Hg] 150 mm[Hg] [facility] Center Oxygen saturation 100 % 100 % [facility] blood [facility] by Pulse oximetry Respiratory rate 18 /min 18 /min [facility] Heart rate 84 /min 84 /min [facility] Diastolic blood 99 mm[Hg] 99 mm[Hg] [facility] pressure [facility] Center Systolic blood 165 mm[Hg] 165 mm[Hg] [facility] Center Oxygen saturation 98 % 98 % [facility] blood [facility] by Pulse oximetry Body temperature 36.153224 36.412643 [facility] Center Oxygen saturation 98 % 98 % [facility] Ar[facility] blood [facility] Center by Pulse oximetry Body weight 81.546939 kg 81.485504 kg [facility] Oxygen saturation 99 % 99 % [facility] blood [facility] by Pulse oximetry Body height 162.412431 162.771971 cm [facility] Body mass index 30.8 kg/m2 30.8 kg/m2 [facility] (BMI) [Ratio] [facility] Body temperature 36.940878 36.721615 [facility] Respiratory rate 19 /min 19 /min [facility] Oxygen saturation 99 % 99 % [facility] blood [facility] Center by Pulse oximetry Heart rate 81 /min 81 /min [facility] Diastolic blood 84 mm[Hg] 84 mm[Hg] [facility] pressure Medical Center Systolic blood 148 mm[Hg] 148 mm[Hg] [facility] Center Patient Treatment Plan of Care Planned Activity Planned Date Details Description Data Source (s) Zithromax Z-Jed 250 MG 02/06/2020 12:00:00 eCW1 ([facility]) NITROFURANTOIN, 11/07/2019 12:00:00 eCW1 ([facility] MACROCRYSTALS 25 MG / AM [facility]) Nitrofurantoin, Monohydrate 75 MG Oral Capsule [Macrobid]
--- NOTE | 2020-04-03 13:22 | EKG ---
Test Reason : Blood Pressure : / mmHG Vent. Rate : 068 BPM Atrial Rate : 068 BPM P-R Int : 228 ms QRS Dur : 090 ms QT Int : 432 ms P-R-T Axes : 066 -01 047 degrees QTc Int : 459 ms SINUS RHYTHM WITH 1ST DEGREE A-V BLOCK ANTEROSEPTAL INFARCT (CITED ON OR BEFORE 11-MAY-2019) ABNORMAL ECG WHEN COMPARED WITH ECG OF 09-FEB-2020 06:43, NO SIGNIFICANT CHANGE WAS FOUND Confirmed by KYLAH OG MD ([id number]) on 04/03/2020 1:22:20 PM Referred By: Confirmed By:KYLAH OG MD
== END 2020-04-03 03:43 | disposition home or self-care (01) ==
LOC: JER 22:18
DX: N18.9 Chronic kidney disease, unspecified (principal); E16.2 Hypoglycemia, unspecified
CPT/HCPCS: 36415; 71046-TC-FY; 80053; 81003; 82550; 82553; 82962; 84484; 85025; 87086; 93005; 93010; 99285-25

== ENCOUNTER 2020-04-16 02:01 | Emergency (ER) | payer MEDICARE, OTHER ==
--- NOTE | 2020-04-16 02:33 | PDOC ---
History of Present Illness - General Stated Complaint: URINARY PROBLEM Time Seen by Provider: 04/16/20 02:33 - History of Present Illness Initial Comments: HPI: 04/16/20 02:46 69 yo M PMH HTN, IDDM, prostate cancer s/p radiation therapy with recurrent blad homer neck contracture, s/p prostatectomy, left urethral stricture, urinary incontinence (chronic condom cath), chronic renal insufficiency, presenting with Preciado issue. Arabic speaking only. Notes that today, he was having hematuria. He states that he feels unable to pass urine despite straining. Has no other complaints. Urologist: Dr. Loredo ROS: GENERAL/CONSTITUTIONAL: denies fever, chills, generalized weakness HEAD, EYES, EARS, NOSE AND THROAT: denies rhinorrhea, nasal congestion NEUROLOGIC: denies headache, dizziness, mental status changes CARDIOVASCULAR: denies chest pain, syncope, palpitations RESPIRATORY: denies cough, shortness of breath, dyspnea with exertion GASTROINTESTINAL: denies abdominal pain, abdominal distension, nausea, vomiting, diarrhea, constipation GENITOURINARY: endorses hematuria and urgency MUSCULOSKELETAL: denies myalgia, arthralgia SKIN: denies rash, itching PE: Gen: well-developed, well-nourished, appears uncomfortable Neuro: AAOX4, CN II-XII intact HEENT: atraumatic, normocephalic Neck: trachea midline, supple CV: regular rate, regular rhythm, no murmurs, rubs, or gallops Pulm: CTA b/l, no wheezing Abd: soft, non-distended, non-tender MSK: full ROM, intact pulses Extr: no edema, no deformities Skin: warm, dry MDM: Concern for urinary incontinence. - Preciado placement - UA/UC 04/16/20 03:09 Unable to pass Preciado. Call placed to Dr. Loredo considering history of stricture and bladder neck contracture. 04/16/20 03:[address] Loredo, do not attempt Preciado placement. Patient is likely to be feeling his chronic incontinence. May start empiric abx and see urologist tomorrow. POCUS bladder with 65 ccs of urine. - CBC - CMP - coags - likely dc with empiric abx 04/16/20 04:23 Hgb 9.3, Cr 3.4, similar to prior. Patient reassessed, sleeping peacefully. Stat es that he feels better, only a little pain now. Will dc with empiric antibiotics, close follow-up with urologist. Based on previous urine cultures, will send with Macrobid. Past History - Medical History Allergies/Adverse Reactions: Allergies Allergy/AdvReac Type Severity Reaction Status Date / Time lisinopril Allergy Severe Swelling Verified 02/09/20 06:06 Home Medications: Ambulatory Orders Amlodipine Besylate [Norvasc -] 10 mg PO DAILY 05/11/19 Hydralazine HCl 100 mg PO TID 05/11/19 Labetalol HCl [Normodyne -] 300 mg PO BID 05/11/19 Albuterol Sulfate Inhaler - [Ventolin HFA Inhaler -] 1 - 2 inh PO Q4H 05/14/19 Bromfenac Sodium [Prolensa] 3 ml OD DAILY 05/14/19 Furosemide [Lasix -] 40 mg PO DAILY tablet 05/14/19 Insulin (Levemir) [Levemir Vial] 35 units SQ ONCE 05/14/19 Insulin Sliding Scale [Novolog Vial Sliding Scale -] 10 units SQ BID 05/14/19 Prednisolone 1% Ophthalmic [Pred Forte 1% -] 1 drop OD QID 05/14/19 Atorvastatin Calcium [Lipitor] 40 mg PO DAILY 01/04/20 Gabapentin 400 mg PO BID 01/04/20 Aspirin [Aspirin EC] 81 mg PO DAILY 01/05/20 Latanoprost 0.005% Eye Drops [Xalatan 0.005% Eye Drops -] 1 drop HS 01/10/20 Omeprazole/Sodium Bicarbonate [Omeprazole-Bicarb 20-1,680 Pkt] 1 pkt PO BID 01/10/20 Acetaminophen [Tylenol .Regular Strength -] 650 mg PO Q4H PRN tablet 01/11/20 Carvedilol [Coreg -] 25 mg PO BID tablet 01/11/20 Gabapentin [Neurontin -] 300 mg PO BID capsule 01/11/20 Pantoprazole Sodium [Protonix -] 20 mg PO DAILY tablet.ec 01/11/20 Nitrofurantoin Monohyd/M-Cryst [Macrobid -] 100 mg PO BID #14 capsule 04/16/20 Anemia: Yes (?) Asthma: Yes Cancer: Yes (prostate, CHEMO) Cardiac Disorders: Yes ([place]: 2012, CARDIAC STENTING) CVA: No COPD: No CHF: No Dementia: No Diabetes: Yes GI Disorders: Yes (GERD, diverticulitis) Disorders: Yes HTN: Yes Hypercholesterolemia: Yes Liver Disease: No Seizures: No Thyroid Disease: No - Surgical History Abdominal Surgery: No Appendectomy: No Cardiac Surgery: No Cholecystectomy: No Lung Surgery: No Neurologic Surgery: No Orthopedic Surgery: No - Immunization History Immunization Up to Date: Yes - Psycho-Social/Smoking History Smoking Status: No Smoking History: Never smoked Have you smoked in the past 12 months: No Number of Cigarettes Smoked Daily: 0 If you are a former smoker, when did you quit?: 1 YEAR AGO 'Breaking Loose' booklet given: 09/06/17 ED Treatment Course - LABORATORY CBC & Chemistry Diagram: 04/16/20 03:30 04/16/20 03:30 Discharge - Discharge Information Problems reviewed: Yes Clinical Impression/Diagnosis: Urinary retention Hematuria Qualifiers: Hematuria type: unspecified type Qualified Code(s): R31.9 - Hematuria, unspecified UTI (urinary tract infection) Qualifiers: Urinary tract infection type: site unspecified Hematuria presence: with hematuria Qualified Code(s): N39.0 - Urinary tract infection, site not specified Condition: Improved Disposition: HOME - Admission No - Additional Discharge Information Prescriptions: Nitrofurantoin Monohyd/M-Cryst [Macrobid -] 100 mg PO BID #14 capsule - Follow up/Referral Referrals: Jacques Loredo MD [Staff Physician] - - Patient Discharge Instructions Patient Printed Discharge Instructions: DI for Urinary Tract Infection (UTI) Additional Instructions: You were seen with pain when attempting to urinate. Your labs showed chronic kidney issues, but no new concerns. Take your Macrobid twice a day for the next two weeks. Please follow up with Dr. Loredo within one week. Return to the ER if you develop new or worsening symptoms. Print Language: BOLIVIAN - Post Discharge Activity
--- NOTE | 2020-04-16 02:34 | PDOC ---
Attending Attestation - Resident Resident Name: IrenaAnujmckenzie - ED Attending Attestation I have performed the following: I have examined & evaluated the patient, The case was reviewed & discussed with the resident, I agree w/resident's findings & plan - HPI HPI: 04/16/20 02:34 see resident hpi - Physicial Exam PE: 04/16/20 02:34 see resident exam - Medical Decision Making 04/16/20 02:46 69-year-old male with history of urinary incontinence now complaining of inability to urinate Patient arrives with a condom catheter in place with no output, he has noticed scant blood Plan for Preciado catheter, basic labs, urinalysis Discharge - Discharge Information Problems reviewed: Yes Clinical Impression/Diagnosis: Urinary retention - Follow up/Referral - Patient Discharge Instructions - Post Discharge Activity
[2020-04-16 02:42] VITALS: BP 161/82; PULSE 77; TEMP 98.2; BMI 31.6
--- OUTSIDE RECORDS SUMMARY | 2020-04-16 02:44 | XMS ---
:1950 Author Organization [facility] Care Team Providers Name Role Phone Kamron Hebert MD Unavailable Unavailable Kamron Hebert MD Unavailable Unavailable Kamron Hebert MD Unavailable Unavailable Kamron Hebert MD Unavailable Unavailable Kamron Hebert MD Unavailable Unavailable Kamron Hebert MD Unavailable Unavailable Kamron Hebert MD Unavailable Unavailable Kamron Hebert MD Unavailable Unavailable [facility] Unavailable Unavailable Tim Villalpando Unavailable [phone] ED STAFF PHYSICIAN, STAFF Unavailable Unavailable CARMITA, LUZ Unavailable Unavailable Carmita, Osama Unavailable Unavailable Carmita, Osama Unavailable Unavailable Carmita, Osama Unavailable Unavailable Camrita, Osama Unavailable Unavailable Carmita, Osama Unavailable Unavailable Carmita, Osama Unavailable Unavailable Carmita, Osama Unavailable Unavailable Carmita, Osama Unavailable Unavailable Carmita, Osama Unavailable Unavailable Carmita, Osama Unavailable Unavailable Carmita, Osama Unavailable Unavailable Carmita, Osama Unavailable Unavailable Carmita, Osama Unavailable Unavailable Carmita, Osama Unavailable Unavailable Carmita, Tonoma Unavailable Unavailable JESSICA LUNA Unavailable Unavailable Re-disclosure Warning The records that [...] is protected by Article 27-F of the [facility] Public Health law. If you continue you may haveaccess to information: Regarding HIV / AIDS; Provided by facilities licensed or operated by the [facility] Office of Mental Health; or Provided by the [facility] Office for People With Developmental Disabilities. If such information is present, then the following [facility] mandated warning applies: This information has been [...] law may result in a fine or detention sentence or both. A general authorization for the release of medical or other information is NOT sufficient authorization for further disclosure. Allergies and Adverse Reactions Type Description Substance Reaction Status Data Source(s ) lisinopril lisinopril lisinopril Unknown Active eCW1 ([facility]) lisinopril lisinopril lisinopril Unknown Active eCW1 ([facility]) lisinopril lisinopril lisinopril Unknown Active eCW1 ([facility]) lisinopril lisinopril lisinopril Unknown Active eCW1 ([facility]) lisinopril lisinopril lisinopril Unknown Active eCW1 ([facility]) Encounters Encounter Providers Location Date Indications Data Source(s ) (TEL) [address] 04/10/2020 eCW1 ([facility] 12:00:00 [facility] AM EDT Practice PC) (TEL) [address] 04/07/2020 eCW1 ([facility] 12:00:00 [facility] Medic al AM EDT Practice PC) Outpatient [address] 04/01/2020 eCW1 ([facility] 12:00:00 [facility] Medic al AM EDT Practice PC) (TEL) [address] 03/27/2020 eCW1 ([facility] 12:00:00 [facility] Medic al AM EDT Practice PC) (TEL) [address] 03/21/2020 eCW1 ([facility] 12:00:00 [facility] Medic al AM EDT Practice PC) Outpatient 03/04/2020 [facility] 12:40:00 Medical Center PM EDT Outpatient Attender: H 03/04/2020 [facility] 08:35:00 Medical C enter MDAdmitter: AM EDT Kamron Hebert MDReferrer: Kamron Hebert MD Attender: Tim 03/04/2020 NEXTGEN ( [facility] 08:35:00 Edward Medic al AM EDT - Center) 03/04/2020 08:35:00 AM EDT Outpatient [address] 03/04/2020 eCW1 ([facility] 12:00:00 [facility] Medic al AM EDT Practice PC) Outpatient 03/04/2020 [facility] 12:00:00 Medical Center AM EDT Outpatient [address] 02/06/2020 eCW1 ([facility] 12:00:00 [facility] Medic al AM EDT Practice PC) Outpatient [address] 01/30/2020 eCW1 ([facility] 12:00:00 [facility] Medic al AM EDT Practice PC) Outpatient [address] 01/22/2020 eCW1 ([facility] 12:00:00 [facility] Medic al AM EDT Practice PC) Outpatient Attender: Osama H 01/02/2020 [facility] SayeghAdmitter: 12:48:00 Medical C enter Osama PM EDT SayeghReferrer: Osama Carmita Outpatient [address] 01/02/2020 eCW1 ([facility] 12:00:00 [facility] Medic al AM EDT Practice PC) (TEL) [address] 12/19/2019 eCW1 ([facility] 12:00:00 [facility] Medic al AM EDT Practice PC) Outpatient [address] 12/03/2019 eCW1 ([facility] 12:00:00 [facility] Medic al AM EDT Practice PC) [address] [facility] [address] 11/07/2019 eCW1 ([facility] 12:00:00 Edward Medic al AM EDT Practice PC) [address] [facility] [address] 11/01/2019 eCW1 ([facility] 12:00:00 [facility] Medic al AM EDT Practice PC) Emergency Attender: PRISCILLA Crockett 08/27/2019 [facility] 08:55:00 Medical Center CHILDEBERTAttend AM EST - er: STAFF ED 08/28/2019 STAFF 06:22:00 PHYSICIANAdmitte PM EST r: STAFF ED STAFF PHYSICIAN Patient discharged. [address] [facility] [address] 08/14/2019 eCW1 ([facility] 12:00:00 AM EST [facility]) [address] [facility] [address] 07/26/2019 eCW1 ([facility] 12:00:00 AM EST [facility]) Outpatient Attender: Kamron Crockett 07/17/2019 [facility] 10:33:00 AM EST Medical C enter MDAdmitter: Kamron Hebert MDReferrer: Kamron Hebert MD Attender: Tim 07/17/2019 [facility] ( [facility] 10:33:00 AM EST - Dario s Medical 07/17/2019 Center) 10:33:00 AM EST Outpatient 07/17/2019 [facility] 09:54:00 AM EST Medical C enter [address] 07/17/2019 eCW1 ([facility] 12:00:00 AM EST [facility]) Outpatient 07/17/2019 [facility] 12:00:00 AM EST Medical C enter (TEL) [address] 07/06/2019 eCW1 ([facility] 12:00:00 AM EST [facility]) [address] 06/28/2019 eCW1 (S aint [facility] 12:00:00 AM EST [facility]) [address] 06/12/2019 [facility] Outpatient 06/05/2019 [facility] 11:48:00 AM EST Medical C enter Outpatient Attender: Kamron Crockett 06/05/2019 [facility] 09:17:00 AM EST Medical C enter MDAdmitter: Kamron eHbert MDReferrer: Kamron Hebert MD Attender: Tim 06/05/2019 [facility] ( [facility] Hua Villalpando 09:17:00 AM EST - [facility] 06/05/2019 [facility]) 09:17:00 AM EST Outpatient [address] [place] [address] 06/05/2019 eCW1 ([facility] 12:00:00 AM EST [facility]) Outpatient 06/05/2019 [facility] 12:00:00 AM EST Medical C enter Outpatient 05/30/2019 [facility] 10:17:00 AM EST Medical C enter Outpatient 05/30/2019 [facility] 12:00:00 AM EST Medical C enter [address] [address] 05/29/2019 [facility]CW[facility] AM [facility] Outpatient 05/15/2019 [facility] 12:36:00 PM EST Medical C enter Outpatient Attender: Kamron Crockett 05/15/2019 [facility] 09:26:00 AM EST Medical C enter MDAdmitter: Kamron Hebert MDReferrer: Kamron Hebert MD Attender: Tim 05/15/2019 NEXTGEN ( [facility] [place] Kwasi 09:26:00 AM EST - [facility] 05/15/2019 [facility]) 09:26:00 AM EST [address] [place] [address] 236 05/15/2019 eCW1 ([facility] 12:00:00 AM [facility]) Outpatient 05/15/2019 [facility] 12:00:00 AM EST Medical C enter [address] [address] 05/10/2019 eCW1 (S aint [facility] 12:00:00 AM [facility]) Inpatient Attender: JESSICA CASTELLANOSAnaya 05/02/2019 [facility] 08:35:00 PM EST - Medical Center : LUZ 05/04/2019 SAYEGHAttender: 05:10:00 PM EST STAFF ED STAFF PHYSICIANAdmitter : JESSICA Fullerferrer : JESSICA BARBEREGO Patient discharged. Outpatient 05/02/2019 [facility] 11:15:00 AM EST Medical C enter Outpatient Attender: H 05/02/2019 [facility] Kamron Hebert 09:28:00 AM [facility] MDAdmitter: Kamron Hebert MDReferrer: Kamron Hebert MD Attender: Tim 05/02/2019 NEXTGEN ( [facility] 09:28:00 AM [facility] 05/02/2019 Center) 09:28:[address] 05/02/2019 [facility] 12:00:00 AM [facility]) [address] 05/02/2019 eCW1 (S aint [facility] 12:00:00 AM [facility]) Outpatient 05/02/2019 [facility] 12:00:00 AM EST Medical C enter Outpatient Attender: Shine Crockett 04/26/2019 [facility] SayeghAdmitter: 10:45:00 AM EDT [facility] Osama SayeghReferrer: Shine Langley [address] 04/26/2019 eCW1 (S aint Office [facility] Street [facility] 12:00:00 AM EDT [facility]) [facility] [address] 04/25/2019 eCW1 ([facility] 12:00:00 AM EDT [facility]) [address] [address] [address] 04/24/2019 eCW1 (S aint [facility] Street [facility] [address] 04/16/2019 eCW1 (S aint Office [facility] [address] 04/12/2019 eCW1 (S [facility] [facility] [address] 04/11/2019 eCW1 (S aint [facility] [address] 03/15/2019 eCW1 (S [facility] [facility] [address] 236 03/08/2019 eCW1 (S [facility] [facility] [address] 236 02/27/2019 eCW1 (S aint [facility] Street [facility] [address] 02/27/2019 eCW1 ([facility] 12:00:[address] [facility]) Immunizations Vaccine Date Status Description Data Source(s) Influenza, high dose 04/01/2020 completed eCW1 (S aint [facility] seasonal 04:12:00 PM EDT Medical [facility] tal ) Influenza, high dose 04/01/2020 completed eCW1 (S aint [facility] seasonal 04:12:00 PM EDT Medical [facility] tal ) Influenza, high dose 04/01/2020 completed eCW1 (S aint [facility] seasonal 04:12:00 PM EDT Medical [facility] tal ) IIV3. This vaccine code 07/17/2019 completed eCW1 [...] split virus. Influenza, injectable, 04/12/2019 completed eCW1 ([facility] MDCK, preservative free, 01:15:00 PM EDT Medical Practice PC) quadrivalent Influenza, injectable, 04/12/2019 completed eCW1 ([facility]CK, preservative free, 01:15:00 PM EDT Medical Practice PC) quadrivalent Influenza, injectable, 04/12/2019 completed eCW1 ([facility]CK, preservative free, 01:15:00 PM EDT Medical Practice PC) quadrivalent Influenza, injectable, 04/12/2019 completed eCW1 ([facility]CK, preservative free, 01:15:00 PM EDT Medical Practice PC) quadrivalent Influenza, injectable, 04/12/2019 completed eCW1 ([facility]CK, preservative free, 01:15:00 PM EDT Medical Practice PC) quadrivalent Influenza, injectable, 04/12/2019 completed eCW1 ([facility]CK, preservative free, 01:15:00 PM EDT Medical Practice PC) quadrivalent Influenza, injectable, 04/12/2019 completed eCW1 ([facility]CK, preservative free, 01:15:00 PM EDT Medical Practice PC) quadrivalent Influenza, injectable, 04/12/2019 completed eCW1 ([facility]CK, preservative free, 01:15:00 PM EDT Medical Practice PC) quadrivalent Influenza, injectable, 04/12/2019 completed eCW1 ([facility] MDCK, preservative free, 01:15:00 PM EDT Medical Practice PC) quadrivalent Influenza, injectable, 04/12/2019 completed eCW1 ([facility]CK, preservative free, 01:15:00 PM EDT Medical Practice PC) quadrivalent Medications Medication Brand Start Product Dose Route Administrative Pharmacy [facility] Indications Reaction Description Data Name Date [...] ed Z-Jed 250 MG (S aint MG Z-Ejd 12:00: Edward 250 MG 00 AM Medical [...] 250 MG 00 AM Medical EDT Practice ) NITROFURANT Macrob 1.0 active Macrobi d 100 eCW1 OIN, id 100 2019 {tabl MG ([facility] 12:00: et} Dario s LS 25 MG / 00 AM Medical Nitrofurant EDT Practice [facility], ) Monohydrate 75 MG Oral Capsule [Macrobid] Macrobid 100 MG NITROFURANT Macrob 1.0 active Macrobi d 100 eCW1 OIN, id 100 2019 {tabl MG ([facility] 12:00: et} Dario s LS 25 MG / 00 AM Medical Nitrofurant EDT Practice [facility], ) Monohydrate 75 MG Oral Capsule [Macrobid] Macrobid 100 MG NITROFURANT Macrob 1.0 active Macrobi d 100 eCW1 OIN, id 100 2019 {tabl MG ([facility] 12:00: et} Dario s LS 25 MG / 00 AM Medical Nitrofurant EDT Practice [facility], ) Monohydrate 75 MG Oral Capsule [Macrobid] Macrobid 100 MG NITROFURANT Macrob 1.0 active Macrobi d 100 eCW1 OIN, id 100 2019 {tabl MG ([facility] 12:00: et} Dario s LS 25 MG / 00 AM Medical Nitrofurant EDT Practice [facility]) Monohydrate 75 MG Oral Capsule [Macrobid] Macrobid 100 MG NITROFURANT Macrob 1.0 active Macrobi d 100 eCW1 OIN, id 100 2019 {tabl MG ([facility] 12:00: et} Dario s LS 25 MG / 00 AM Medical Nitrofurant EDT Practice [facility]) Monohydrate 75 MG Oral Capsule [Macrobid] Macrobid 100 MG NITROFURANT Macrob 1.0 active Macrobi d 100 eCW1 OIN, id 100 2019 {tabl MG ([facility] 12:00: et} Dario s LS 25 MG / 00 AM Medical Nitrofurant EDT Practice [facility], ) Monohydrate 75 MG Oral Capsule [Macrobid] Macrobid 100 MG NITROFURANT Macrob 11/06/ 1.0 active Macrobi d 100 eCW1 OIN, id 100 2019 {tabl MG ([facility] 12:00: et} Dario s LS 25 MG / 00 AM Medical Nitrofurant EDT Practice [facility]) Monohydrate 75 MG Oral Capsule [Macrobid] Macrobid 100 MG NITROFURANT Macrob 11/06/ 1.0 suspend Macrob id 100 eCW1 OIN, id 100 2019 {tabl ed MG ([facility] 12:00: et} Dario s LS 25 MG / 00 AM Medical Nitrofurant EDT Practice [facility]) Monohydrate 75 MG Oral Capsule [Macrobid] Macrobid 100 MG NITROFURANT Macrob 11/06/ active 1 table t eCW1 OIN, id 100 2019 ([facility] 12:00: Dario s LS 25 MG / 00 AM Medical Nitrofurant EDT Practice [facility]) Monohydrate 75 MG Oral Capsule [Macrobid] Macrobid 100 MG NITROFURANT Macrob 11/06/ 1.0 active Macrobi d 100 eCW1 OIN, id 100 2019 {tabl MG ([facility] 12:00: et} Dario s LS 25 MG / 00 AM Medical Nitrofurant EDT Practice [facility]) Monohydrate 75 MG Oral Capsule [Macrobid] Macrobid 100 MG NITROFURANT Macrob 11/06/ 1.0 active Macrobi d 100 eCW1 OIN, id 100 2019 {tabl MG ([facility] 12:00: et} Dario s LS 25 MG / 00 AM Medical Nitrofurant EDT Practice [facility]) Monohydrate 75 MG Oral Capsule [Macrobid] Macrobid 100 MG NITROFURANT Macrob 11/06/ 1.0 suspend Macrob id 100 eCW1 OIN, id 100 2019 {tabl ed MG ([facility] 12:00: et} Dario s LS 25 MG / 00 AM Medical Nitrofurant EDT Practice [facility], ) Monohydrate 75 MG Oral Capsule [Macrobid] Macrobid 100 MG NITROFURANT Macrob .0 suspend Macrob id 100 eCW1 OIN, id 100 2019 {tabl ed MG ([facility] 12:00: et} Dario s LS 25 MG / 00 AM Medical Nitrofurant EDT Practice oin, PC) Monohydrate 75 MG Oral Capsule [Macrobid] Macrobid 100 MG Amoxicillin Janmen .0 active Augment in [...] Practice [Augmentin] PC) Augmentin 500-125 MG Amoxicillin 1.0 suspend Janmen tin eCW1 500 MG / tin 2019 {tabl [...] (90 Base) MCG/ACT 200 ACTUAT Ventol 03/15/ 2.0 active Ventolin HFA eCW1 Albuterol in [...] (90 Base) MCG/ACT 200 ACTUAT Ventol 03/15/ 2.0 active Ventolin HFA eCW1 Albuterol in [...] name Policy type Policy ID Covered Covered libertarian's Policy P domi / Coverage libertarian ID relationship to [facility] ormation type curtis MEDICAID [id number] SP [id number] [facility] [id number] SP [id number] 600 MEDICARE ADV PLAN [place] MEDICARE [id number] SP [id number] [place] O [id number] 01 [id number] MEDICARE OP W [id number] [place] MEDICARE [id number] SP [id number] MEDICAID [id number] SP [id number] ELDERPLAN [id number] SP [id number] INC MEDICAID [id number] SP [id number] 600 [place] [id number] 1 [id number] [facility] [id number] MEDICAID [id number] SP [id number] CRISTIN [id number] SP [id number] 600 MEDICARE ADV PLAN [place] HMO [id number] 01 [id number] MEDICARE IP M [id number] 01 [id number] W [id number] 01 [id number] [place] [id number] SP [id number] COMPLETE CRISTIN [id number] 01 [id number] CRISTIN [id number] 01 [id number] 600 W [id number] 01 [id number] Problems, Conditions, and Diagnoses Code Display Name Description Problem Type Effective Data Dates Source(s) E11.9 [id number] Type 2 diabetes Problem 01/22/2020 eCW1 ([facility] [facility] mellitus without 12:00:00 AM Edward complication, EDT Medical without long-term Practic e PC) current use of insulin D47.3 [id number] Thrombocythemia Problem 01/22/2020 eCW1 ([facility] [facility] 12:00:00 AM [facility] EDT Medical Practice PC) E11.29 [id number] Type 2 diabetes Problem 01/02/2020 eCW1 ([place] mellitus with other 12:00:00 AM Lowell calvin diabetic kidney EDT Medical complication Practice PC) J45.20 [id number] Mild intermittent Problem 11/01/2019 eCW1 (S aint asthma without 12:00:00 AM Edward complication EDT Medical Practice PC) J45.20 [id number] Mild intermittent Problem 11/01/2019 eCW1 (S aint asthma without 12:00:00 AM Edward complication EDT Medical Practice PC) E10.9 [id number] Insulin dependent Problem 08/14/2019 eCW1 (S aint diabetes mellitus 12:00:00 AM Dario s type IA EST Medical Practice PC) I63.9 [id number] Cerebrovascular Problem 05/15/2019 eCW1 ([place] accident (CVA), 12:00:00 AM Edward unspecified EST Medical mechanism Practice PC) I63.9 [id number] Cerebrovascular Problem 05/15/2019 eCW1 ([place] accident (CVA), 12:00:00 AM Edward unspecified EST Medical mechanism Practice PC) H26.9 [id number] Cataract of right Problem 05/02/2019 eCW1 (S aint eye, unspecified 12:00:00 AM Edward cataract type EST Medical Practice PC) H26.9 [id number] Cataract, Problem 04/24/2019 eCW1 ([facility] unspecified 12:00:00 AM Edward cataract type, EDT Medical unspecified Practice PC) laterality H26.9 [id number] Cataract, Problem 04/24/2019 eCW1 ([facility] unspecified 12:00:00 AM Edward cataract type, EDT Medical unspecified Practice PC) laterality N18.9 [id number] Chronic kidney Problem 04/16/2019 eCW1 (Melany t disease, 12:00:00 AM Edward unspecified CKD EDT Medical stage Practice PC) N18.9 [id number] Chronic kidney Problem 04/16/2019 eCW1 (Melany t disease, 12:00:00 AM Edward unspecified CKD EDT Medical stage Practice PC) Z79.4 [id number] jewel sawyer (current) Problem 04/11/2019 eCW1 (Saint use of insulin 12:00:00 AM Edward EDT Medical Practice PC) E78.5 Hyperlipidemia, HYPERLIPIDEMIA, [...] Encounter for ENCOUNTER FOR Diagnosis 01/02/2020 [facility] preprocedural PREPROCEDURAL 12:48:00 PM Medical cardiovascular CARDIOVASCULAR [...] Atherosclerotic ATHSCL HEART Diagnosis 07/17/2019 [facility] heart disease of DISEASE OF IQUGMIUT 10:33:00 AM Medical [facility] coronary CORONARY ARTERY W/O EST Center artery [...] Encounter for other ENCOUNTER FOR OTHER Diagnosis Genaro Leon preprocedural PREPROCEDURAL 09:17:00 AM Medical examination EXAMINATION EST Center N28.9 Disorder of kidney DISORDER OF KIDNEY Diagnosis 9 [facility] and ureter, AND URETER, 09:26:00 AM Medical unspecified UNSPECIFIED EST Center C61 Malignant neoplasm MALIGNANT NEOPLASM Diagnosis 9 [facility] of prostate OF PROSTATE 09:26:00 AM Medical EST Center R32 Unspecified urinary UNSPECIFIED URINARY Diagnosis 019 [facility] incontinence INCONTINENCE 05:10:00 PM Medical [...] M edical diabetic chronic CHRONIC KIDNEY EST Cent er kidney disease DISEASE I12.9 Hypertensive HYPERTENSIVE Diagnosis 05/04/2019 [facility] chronic kidney CHRONIC KIDNEY 05:10:00 PM Medic al disease with stage DISEASE W STG EST Kari ter 1 through stage 4 1-4/UNSP CHR KDNY chronic kidney disease, or unspecified chronic kidney disease I25.119 Atherosclerotic ATHSCL HEART Diagnosis 05/04/2019 [facility] heart disease of DISEASE OF IQUGMIUT 05:10:00 PM Medical [facility] [place] coronary COR ART W UNSP ANG EST C enter artery with PCTRS unspecified angina pectoris Z85.46 Personal history of PERSONAL HISTORY OF Diagnosis 019 [facility] malignant neoplasm MALIGNANT NEOPLASM 05:10:00 PM Medical of prostate OF PROSTATE EST Center Z98.61 Coronary CORONARY Diagnosis 05/04/2019 [facility] angioplasty status ANGIOPLASTY STATUS 05:10:00 PM Medical EST Center Surgeries/Procedures Procedure Description Date Indications Data Source(s) COLLECTION VENOUS BLOOD 11/01/2019 eCW1 ([facility] VENIPUNCTURE 12:00:00 AM EDT Medical Prac tal PC) HANDLG&/OR CONVEY OF 11/01/2019 eCW1 (Emily Leon SPEC FOR TR OFFICE TO 12:00:00 AM EDT Med ical Practice PC) LAB Results ID Date Data Source [id number] 01/04/2020 03:10:00 AM EDT [facility] Name Value Range Interpretation Description Data Sup porting Code Source(s) Document(s ) SARS [facility] coronavirus 2 RNA This lab was ordered by [facility] and reported by [facility]. ID Date Data Source LIPID.[id number] 08/28/2019 04:42:00 AM EST [facility] Name Value Range Interpretation Description [...] medically appropriate.</con tent> ID Date Data Source GFR(Creatinine).[id number] 08/28/2019 04:42:00 AM [facility] 0-0400 Name Value Range Interpretation Code Description Data Anitha rce(s) Supporting Document(s ) UNK > 60 Below low normal <content [facility] styleCode="Bold"> Medical Cent er EGFR </content>22 GFR L<content styleCode="Italic s"> (> 60 GFR)</content> ID Date Data Source CHMROUTINECCDA.[id number] 08/28/2019 04:42:00 AM [facility] -0400 Name Value Range Interpretation Description Data [...] (2.5-4.5 MG/DL)</conten t> ID Date Data Source [facility].[id number] 08/28/2019 04:42:00 AM EST [facility] Name Value Range Interpretation Description [...] t> Sodium 137-145 <content Saint [Moles/volume] styleCode="Elida Edward in Serum or d">Sodium Medical Plasma </content>138 Center MEQ/L<content styleCode="Rose Mary lics"> (137-145 MEQ/L)</conten t> Calcium 8.4-10.2 <content Saint [Mass/volume] styleCode="Elida Edward in Serum or d">Calcium Medical Plasma </content>9.1 Center MG/DL<content styleCode="Rose Mary lics"> (8.4-10.2 MG/DL)</conten t> Glucose 74-106 Above high normal <content Saint [Mass/volume] styleCode="Elida Edward in Serum or d">Glucose Medical Plasma </content>140 Center MG/DL H<content styleCode="Rose Mary lics"> (74-106 MG/DL)</conten t> UNK 9-20 Above high normal <content Saint styleCode="Elida Edward d">BUN Medical </content>30 Center MG/DL H<content styleCode="Rose Mary lics"> (9-20 MG/DL)</conten t> Creatinine 0.5-1.3 Above high normal <content Saint [Mass/volume] styleCode="Elida Edward in Serum or d">Creatinine Medical Plasma </content>3.0 Center MG/DL H<content styleCode="Rose Mary lics"> (0.5-1.3 MG/DL)</conten t> UNK > 60 Below low normal <content Saint styleCode="Elida Edward d">EGFR Medical </content>22 Center GFR L<content styleCode="Rose Mary lics"> (> 60 GFR)</content> ID Date Data Source CardiacMarkers.[id number] 08/27/2019 03:00:00 PM [facility] -0400 Name Value Range Interpretation Description Data Sup porting Code Source(s) Document(s ) Troponin < 0.034 Above upper panic <content Saint I.cardiac limits styleCode="Bold Edward [Mass/volume ">Troponin I Medical ] in Serum </content><cont Center or Plasma ent styleCode="Bold ">0.048 NG/ML HH</content><co ntent styleCode="Ital ics"> (< 0.034 NG/ML)</content > ID Date Data Source CardiacMarkers.[id number] 08/27/2019 12:27:00 PM [facility] -0400 Name Value Range Interpretation Code Description Data Anitha rce(s) Supporting Document(s ) UNK 0-0.034 Above upper panic <content [place] s limits styleCode="Bold" Medical Cente r >Troponin 4HR </content><car nt styleCode="Bold" >0.047 NG/ML HH</content><con tent styleCode="Itali cs"> (0-0.034 NG/ML)</content> ID Date Data Source HematologyRou.[id number] 08/27/2019 09:00:00 AM [facility] 0400 Name Value Range Interpretation Description Data [...] ics"> (1.6-7.1 %)</content> ID Date Data Source GFR(Creatinine).[id number] 08/27/2019 09:00:00 AM LUKE Bojorquez [facility] 0-0400 Name Value Range Interpretation Code Description Data Anitha rce(s) Supporting Document(s ) UNK > 60 Below low normal <content [facility] styleCode="Bold"> Medical Cent er EGFR </content>21 GFR L<content styleCode="Italic s"> (> 60 GFR)</content> ID Date Data Source CardiacMarkers.[id number] 08/27/2019 09:00:00 AM LUKE gautam [facility] -0400 Name Value Range Interpretation Description Data Sup porting Code Source(s) Document(s ) Troponin < 0.034 Above upper panic <content [facility] I.cardiac limits styleCode="Bold Edward [Mass/volume ">Troponin I Medical ] in Serum </content><cont Center or Plasma ent styleCode="Bold ">0.046 NG/ML HH</content><co ntent styleCode="Ital ics"> (< 0.034 NG/ML)</content > ID Date Data Source BMP.[id number] 08/27/2019 09:00:00 AM EST [facility] Name Value Range Interpretation Description Data [...] GFR)</content> Calcium 8.4-10.2 <content Saint [Mass/volume] styleCode="Elida Bishops in Serum or d">Calcium Medical Plasma </content>9.1 Center MG/DL<content styleCode="Rose Mary lics"> (8.4-10.2 MG/DL)</conten t> UNK 9-20 Above high normal <content Saint styleCode="Elida Bishops d">BUN Medical </content>33 Center MG/DL H<content styleCode="Rose Mary lics"> (9-20 MG/DL)</conten t> Glucose 74-106 Above high normal <content Saint [Mass/volume] styleCode="Elida Leon in Serum or d">Glucose Medical Plasma </content>248 Center MG/DL H<content styleCode="Rose Mary lics"> (74-106 MG/DL)</conten t> Creatinine 0.5-1.3 Above high normal <content Saint [Mass/volume] styleCode="Elida Bishops in Serum or d">Creatinine Medical Plasma </content>3.1 Center MG/DL H<content styleCode="Rose Mary lics"> (0.5-1.3 MG/DL)</conten t> ID Date Data Source GFR(Creatinine).[id number] 05/04/2019 05:52:00 AM EST [place] [facility] 0-0500 Name Value Range Interpretation Code Description Data Anitha rce(s) Supporting Document(s ) UNK > 60 Below low normal <content [facility] styleCode="Bold"> Medical Cent er EGFR </content>24 GFR L<content styleCode="Italic s"> (> 60 GFR)</content> ID Date Data Source Coagulation 05/04/2019 05:52:00 AM [facility] Rout.[id number] EST Name Value Range Interpretation Description Data [...] cs"> (9.0-13.0 SEC)</content> ID Date Data Source CHMROUTINECCDA.[id number] 05/04/2019 05:52:00 AM LUKE gautam [facility] -0500 Name Value Range Interpretation Description Data Sup porting Code Source(s) Document(s ) Magnesium 1.6-2.3 <content Saint [Mass/volume] styleCode="Elida Edward in Serum or d">Magnesium Medical Plasma </content>2.3 Center MG/DL<content styleCode="Rose Mary lics"> (1.6-2.3 MG/DL)</conten t> Phosphate 2.5-4.5 <content Saint [Mass/volume] styleCode="Elida Edward in Serum or d">Phosphorus Medical Plasma </content>4.4 Center MG/DL<content styleCode="Rose Mary lics"> (2.5-4.5 MG/DL)</conten t> ID Date Data Source [facility].[id number] 05/04/2019 05:52:00 AM EST [facility] Name Value Range Interpretation Description [...] Above high normal <content Saint [Moles/volume] styleCode="Elida Edward in Serum or d">Chloride Medical Plasma </content>108 Center MEQ/L H<content styleCode="Rose Mary lics"> (98-107 MEQ/L)</conten t> Potassium 3.5-5.3 <content Saint [Moles/volume] styleCode="Elida Edward in Serum or d">Potassium Medical Plasma </content>4.2 Center MEQ/L<content styleCode="Rose Mary lics"> (3.5-5.3 MEQ/L)</conten t> Creatinine 0.5-1.3 Above high normal <content Saint [Mass/volume] styleCode="Elida Edward in Serum or d">Creatinine Medical Plasma </content>2.8 Center MG/DL H<content styleCode="Rose Mary lics"> (0.5-1.3 MG/DL)</conten t> Calcium 8.4-10.2 <content [facility] [Mass/volume] styleCode="Elida Edward in Serum or d">Calcium Medical Plasma </content>9.1 Center MG/DL<content styleCode="Rose Mary lics"> (8.4-10.2 MG/DL)</conten t> Glucose 74-106 Above high normal <content [facility] [Mass/volume] styleCode="Elida Edward in Serum or d">Glucose Medical Plasma </content>193 Center MG/DL H<content styleCode="Rose Mary lics"> (74-106 MG/DL)</conten t> UNK > 60 Below low normal <content [facility] styleCode="Elida Edward d">EGFR Medical </content>24 Center GFR L<content styleCode="Rose Mary lics"> (> 60 GFR)</content> ID Date Data Source HematologyRou.[id number] 05/04/2019 05:52:00 AM LUKE Bojorquez [facility] 0500 Name Value Range Interpretation Description [...] 24.0-44. <content Saint [#/volume] in 0 styleCode="Bold Edward Blood by ">Lymphocyte Medical Automated count </content>25.9 [...] Date Data Source Coagulation 05/03/2019 10:05:00 PM [facility] ical Center Rout.[id number] EST Name Value Range Interpretation Description Data Sup porting Code Source(s) Document(s ) aPTT in 25.1-36. Above upper panic <content Saint Platelet poor 5 limits styleCode="Bold" Edward plasma by >Partial Medical Coagulation Thromboplastin Center assay Time </content><car nt styleCode="Bold" >165.0 SEC HH</content><con tent styleCode="Itali cs"> (25.1-36.5 SEC)</content> ID Date Data Source Liver 05/03/2019 05:43:[address] [facility] Profile.[id number] Name Value Range Interpretation Description Data Sup [...] s"> (3.5-5.0 G/DL)</content> ID Date Data Source HematologyRou.[id number] 05/03/2019 05:43:00 AM LUKE gautam [facility] 0500 Name Value Range Interpretation Description [...] Edward Fraction] of ">Hematocrit Medical Blood by </content>35.4 [...] (0.0 KCUMM)</content > ID Date Data Source GFR(Creatinine).[id number] 05/03/2019 05:43:00 AM EST [place] [facility] 0-0500 Name Value Range Interpretation Code Description Data Anitha rce(s) Supporting Document(s ) UNK > 60 Below low normal <content [facility] styleCode="Bold"> Medical Cent er EGFR </content>25 GFR L<content styleCode="Italic s"> (> 60 GFR)</content> ID Date Data Source Coagulation 05/03/2019 05:43:00 AM [facility] ical Center Rout.[id number] EST Name Value Range Interpretation Description Data [...] 0.80-1.2 <content [facility] Platelet poor 0 styleCode="Bold" [facility] plasma by >INR Medical Coagulation </content>0.90 Center assay #<content styleCode="Itali cs"> (0.80-1.20 #)</content> ID Date Data Source MRJANEEFRAINMARGO.[id number] 05/03/2019 05:43:00 AM LUKE gautam [facility] -0500 Name Value Range Interpretation Description Data Sup porting Code Source(s) Document(s ) Phosphate 2.5-4.5 <content Saint [Mass/volume] styleCode="Elida Bishops in Serum or d">Phosphorus Medical Plasma </content>4.4 Center MG/DL<content styleCode="Rose Mary lics"> (2.5-4.5 MG/DL)</conten t> UNK 2.3-3.5 <content [facility] styleCode="Elida Edward d">Globulin Medical </content>3.0 Center G/DL<content styleCode="Rose Mary lics"> (2.3-3.5 G/DL)</content > UNK >= 1.0 <content [facility] styleCode="Elida Edward d">AG Ratio Medical </content>1.2 Center <content styleCode="Rose Mary lics"> (>= 1.0 )</content> Magnesium 1.6-2.3 <content Saint [Mass/volume] styleCode="Elida Edward in Serum or d">Magnesium Medical Plasma </content>2.3 Center MG/DL<content styleCode="Rose Mary lics"> (1.6-2.3 MG/DL)</conten t> Protein 6.3-8.2 <content Saint [Mass/volume] styleCode="Elida Edward in Serum or d">Total Medical Plasma Protein Center </content>6.6 G/DL<content styleCode="Rose Mary lics"> (6.3-8.2 G/DL)</content > ID Date Data Source [facility].[id number] 05/03/2019 05:43:00 AM EST [facility] Name Value Range Interpretation Description [...] 98-107 <content Saint [Moles/volume] in styleCode="Bold"> [facility] Serum or Plasma Chloride Medical </content>106 Center MEQ/L<content styleCode="Italic s"> (98-107 MEQ/L)</content> Potassium 3.5-5.3 <content Saint [Moles/volume] in styleCode="Bold"> [facility] Serum or Plasma Potassium Medical </content>4.0 Center [...] s"> (7-50 IU/L)</content> ID Date Data Source [facility].[id number] 05/03/2019 01:20:00 AM [facility] -0500 Name Value Range Interpretation Description Data Sup porting Code Source(s) Document(s ) Troponin < 0.034 Above upper panic <content Saint I.cardiac limits styleCode="Bold Edward [Mass/volume ">Troponin I Medical ] in Serum </content><cont Center or Plasma ent styleCode="Bold ">0.050 NG/ML HH</content><co ntent styleCode="Ital ics"> (< 0.034 NG/ML)</content > ID Date Data Source Urinalysis.[id number] 05/02/2019 11:30:00 PM [facility] 0 Name Value Range Interpretation Description Data Sup porting Code Source(s) Document(s ) Color of Urine YELLOW <content Saint styleCode="Elida Edward d">Color, Medical Urine Center </content>YELL OW <content styleCode="Rose Mary lics"> (YELLOW )</content> UNK CLEAR <content Saint styleCode="Elida Edward d">Urine Medical Clarity Center </content>Sl CLOUDY <content styleCode="Rose Mary lics"> (CLEAR )</content> Glucose NEGATIVE <content Saint [Mass/volume] styleCode="Elida Bsihops in Urine by d">Urine Medical Test strip Glucose Center </content>100 MG/DL<content styleCode="Rose Mary lics"> (NEGATIVE MG/DL)</conten t> UNK NEGATIVE <content Saint styleCode="Elida Edward d">Urine Medical Bilirubin Center </content>NEGA TIVE <content styleCode="Rose Mary lics"> (NEGATIVE )</content> Ketones NEGATIVE <content Saint [Mass/volume] styleCode="Elida Bishops in Urine by d">Urine Medical Test strip Ketone Center </content>NEGA TIVE MG/DL<content styleCode="Rose Mary lics"> (NEGATIVE MG/DL)</conten t> Hemoglobin NEGATIVE <content Saint [Presence] in styleCode="Elida Bishops Urine by Test d">Urine Blood Medical strip </content>NEGA Center TIVE <content styleCode="Rose Mary lics"> (NEGATIVE )</content> pH of Urine by 4.5-8.0 <content Saint Test strip styleCode="Elida Edward d">Urine pH Medical </content>7.0 Center <content styleCode="Rose Mary lics"> (4.5-8.0 )</content> Specific 1.015-1.02 <content Saint gravity of 5 styleCode="Elida Bishops Urine by Test d">Urine Medical strip Specific Center [place] </content>1.01 5 <content styleCode="Rose Mary lics"> (1.015-1.025 )</content> Protein NEGATIVE <content Saint [Mass/volume] styleCode="Elida Bishops in Urine by d">Urine Medical Test strip Protein Center </content>300 mg/dl MG/DL<content styleCode="Rose Mary lics"> (NEGATIVE MG/DL)</conten t> Urobilinogen 0.2-1.0 <content Saint [Units/volume] styleCode="Elida Edward in Urine by d">Urine Medical Test strip Urobilinogen Center </content>0.2 MG/DL<content styleCode="Rose Mary lics"> (0.2-1.0 MG/DL)</conten t> Nitrite NEGATIVE <content Saint [Presence] in styleCode="Elida Bishops Urine by Test d">Urine Medical strip Nitrite Center </content>POSI TIVE <content styleCode="Rose Mary lics"> (NEGATIVE )</content> Leukocyte NEGATIVE <content Saint esterase styleCode="Elida Bishops [Presence] in d">Urine Medical Urine by Test [...] (NONE SEEN HPF)</content> ID Date Data Source Microbiology.[id number] 05/02/2019 11:30:00 PM EST [place] [facility] 500 Name Value Range Interpretation Code Description Data Anitha rce(s) Supporting Document(s ) UNK <item><content [facility] styleCode="Bold">C Medical [facility] ter ulture Report </content>
<ta ble><tbody><tr><td >Specimen Number:</td><td>[id number]</td></tr>< tr><td>Sample Collection Date/Time: </td><td>05/02/2019 11:30 PM</td></tr><tr><t d>Specimen Source:</td><td>UR INE</td></tr><tr>< td>Urine Culture:</td><td>C ollection Plate Date: 05/03/2019 00:05 </td></tr><tr><td> Culture Status:</td><td>Pr eliminary </td></tr><tr><td> Culture Report:</td><td>Cu lture in progress </td></tr></tbody> </table></item> UNK <item><content [facility] styleCode="Bold">C Medical [address] ter ulture Status </content>
<ta ble><tbody><tr><td >Specimen Number:</td><td>[id number]</td></tr>< tr><td>Sample Collection Date/Time: </td><td>05/02/2019 11:30 PM</td></tr><tr><t d>Specimen [...] d><td></td></tr></ tbody></table></it em> ID Date Data Source LIPID.[id number] 05/02/2019 10:00:00 PM EST [facility] Name Value Range Interpretation Description Data [...] (> 60 MG/DL)</content> ID Date Data Source HematologyRou.[id number] 05/02/2019 10:00:00 PM EST [place] [facility] 0500 Name Value Range Interpretation Description Data Sup porting Code Source(s) Document(s ) Leukocytes 4.4-11.0 <content Saint [#/volume] in styleCode="Bold [facility] Blood by ">White Blood Medical Automated count [...] (0.0 KCUMM)</content > ID Date Data Source GFR(Creatinine).[id number] 05/02/2019 10:00:00 PM EST [place] [facility] 0-0500 Name Value Range Interpretation Code Description Data Anitha rce(s) Supporting Document(s ) UNK > 60 Below low normal <content [facility] styleCode="Bold"> Medical Cent er EGFR </content>24 GFR L<content styleCode="Italic s"> (> 60 GFR)</content> ID Date Data Source Coagulation 05/02/2019 10:00:00 PM [facility] ical Center Rout.[id number] EST Name Value Range Interpretation Description Data [...] >Partial Medical Coagulation Thromboplastin Center assay Time </content>37.4 SEC H<content styleCode="Itali cs"> (25.1-36.5 SEC)</content> UNK < 500 <content Saint styleCode="Bold" Edward >D-Dimer Medical </content>214 Center ngFEU<content styleCode="Itali cs"> (< 500 ngFEU)</content> ID Date Data [id number] 05/02/2019 10:00:00 PM EST [place] [facility] -0500 Name Value Range Interpretation Description Data Sup porting Code Source(s) Document(s ) Natriuretic < 125 Above high normal <content Saint peptide.B styleCode="Elida Edward prohormone d">NT Pro BNP Medical N-Terminal </content>583 Center [Mass/volume] PG/ML in Serum or H<content Plasma styleCode="Rose Mary lics"> (< 125 PG/ML)</conten t> ID Date Data Source CardiacMarkers.[id number] 05/02/2019 10:00:00 PM EST [place] [facility] -0500 Name Value Range Interpretation Description Data Sup porting Code Source(s) Document(s ) Troponin < 0.034 Above upper panic <content [facility] I.cardiac limits styleCode="Bold Edward [Mass/volume ">Troponin I Medical ] in Serum </content><cont Center or Plasma ent styleCode="Bold ">0.050 NG/ML HH</content><co ntent styleCode="Ital ics"> (< 0.034 NG/ML)</content > ID Date Data Source [facility].[id number] 05/02/2019 10:00:00 PM EST [facility] Name Value Range Interpretation Description Data Sup porting Code Source(s) Document(s ) Sodium 137-145 Below low normal <content Saint [Moles/volume] styleCode="Elida Bishops in Serum or d">Sodium Medical Plasma </content>136 Center MEQ/L L<content styleCode="Rose Mary lics"> (137-145 MEQ/L)</conten t> Potassium 3.5-5.3 <content Saint [Moles/volume] styleCode="Elida Bishops in Serum or d">Potassium Medical Plasma </content>3.7 Center MEQ/L<content styleCode="Rose Mary lics"> (3.5-5.3 MEQ/L)</conten t> Chloride 98-107 <content Saint [Moles/volume] styleCode="Elida Bishops in Serum or d">Chloride Medical Plasma </content>104 Center MEQ/L<content styleCode="Rose Mary lics"> (98-107 MEQ/L)</conten t> Glucose 74-106 Above high normal <content Saint [Mass/volume] styleCode="Elida Bishops in Serum or d">Glucose Medical Plasma </content>209 Center MG/DL H<content styleCode="Rose Mary lics"> (74-106 MG/DL)</conten t> UNK 9-20 Above high normal <content Saint styleCode="Elida Bishops d">BUN Medical </content>29 Center MG/DL H<content styleCode="Rose [...] Never Smoker completed Never Smoker e CW1 ([facility] ) Smoking 04/01/2020 12:00:00 Never Smoker completed Never Smoker e CW1 ([facility] ) Smoking 04/01/2020 12:00:00 Never Smoker completed Never Smoker e CW1 ([facility] ) Smoking 03/04/2020 12:00:00 Never Smoker completed Never Smoker e CW1 ([facility] ) Smoking 03/04/2020 12:00:00 Never Smoker completed Never Smoker e CW1 ([facility] ) Smoking 03/04/2020 12:00:00 Never Smoker completed Never Smoker e CW1 ([facility] ) Smoking 02/06/2020 12:00:00 Never Smoker completed Never Smoker e CW1 ([facility] ) Smoking 01/22/2020 12:00:00 Never Smoker completed Never Smoker e CW1 ([facility] ) Smoking 01/22/2020 12:00:00 Never Smoker completed Never Smoker e CW1 ([facility]) Smoking 01/02/2020 12:00:00 Never Smoker completed Never Smoker e CW1 ([facility]) Smoking 12/03/2019 12:00:00 Never Smoker completed Never Smoker e CW1 ([facility]) Smoking 12/03/2019 12:00:00 Never Smoker completed Never Smoker e CW1 ([facility]) Smoking 08/27/2019 10:27:00 Former Smoker completed Former Smoker [facility] Smoking 08/27/2019 01:58:00 Former Smoker completed Former Smoker [facility] Smoking 08/27/2019 09:06:00 Former Smoker completed Former Smoker [facility] Smoking 08/27/2019 08:20:00 Former Smoker completed Former Smoker [facility] Smoking 08/27/2019 08:11:00 Former Smoker completed Former Smoker [facility] Smoking 05/03/2019 07:58:00 Former Smoker completed Former Smoker [facility] Smoking 05/02/2019 10:06:00 Former Smoker completed Former Smoker [facility] Smoking 05/02/2019 08:59:00 Former Smoker completed Former Smoker [facility] Smoking 05/02/2019 08:44:00 Former Smoker completed Former Smoker [facility] Vital Signs ID Date Data Source UNK Name Value Range Interpretation Code Description Data Source(s) Diastolic blood 81 mm[Hg] 81 mm[Hg] eCW1 ([place] [facility]) Systolic blood 140 mm[Hg] 140 mm[Hg] eCW1 ([facility]) Oxygen saturation 98 % 98 % eCW1 (S aint in Arterial blood [facility]) Body temperature 98.6 [degF] 98.6 [degF] eCW1 ( [facility]) Respiratory rate 18 /min 18 /min eCW1 ( [facility]) Heart rate 74 /min 74 /min eCW1 ([facility]) Body mass index 30.55 kg/m2 30.55 kg/m2 eCW1 (S aint (BMI) [Ratio] [facility]) Body weight 178 [lb_av] 178 [lb_av] eCW1 ([facility]) Body height [in_i] eCW1 ([facility]) Diastolic blood 64 mm[Hg] 64 mm[Hg] eCW1 ([facility] nt [facility]) Systolic blood 118 mm[Hg] 118 mm[Hg] eCW1 ([facility]) Oxygen saturation 94 % 94 % eCW1 (S aint in Arterial blood [facility]) Body temperature 98.2 [degF] 98.2 [degF] eCW1 ( [facility]) Respiratory rate 18 /min 18 /min eCW1 ([facility]) Heart rate 76 /min 76 /min eCW1 ([facility]) Body mass index 30.72 kg/m2 30.72 kg/m2 eCW1 (S aint (BMI) [Ratio] [facility]) Body weight 179 [lb_av] 179 [lb_av] eCW1 ([facility]) Body height [in_i] eCW1 ([facility]) Diastolic blood 72 mm[Hg] 72 mm[Hg] eCW1 ([facility] nt [facility]) Systolic blood 133 mm[Hg] 133 mm[Hg] eCW1 ([facility] t [facility]) Oxygen saturation 98 % 98 % eCW1 (S aint in Arterial blood [facility]) Body temperature 100.1 [degF] 100.1 [degF] eCW1 ([facility]) Respiratory rate 18 /min 18 /min eCW1 ([facility]) Heart rate 82 /min 82 /min eCW1 ([facility]) Body mass index 30.21 kg/m2 30.21 kg/m2 eCW1 (S aint (BMI) [Ratio] [facility]) Body weight 176 [lb_av] 176 [lb_av] eCW1 ([facility] Body height [in_i] eCW1 ([facility]) Diastolic blood 78 mm[Hg] 78 mm[Hg] eCW1 ([place] [facility]) Systolic blood 150 mm[Hg] 150 mm[Hg] eCW1 ([place] [facility]) Body temperature 98.8 [degF] 98.8 [degF] eCW1 ( [facility]) Respiratory rate 18 /min 18 /min eCW1 ( [facility] Heart rate 80 /min 80 /min eCW1 ([facility]) Body mass index 30.55 kg/m2 30.55 kg/m2 eCW1 (S aint (BMI) [Ratio] [facility]) Body weight 178 [lb_av] 178 [lb_av] eCW1 ([facility] Body height [in_i] eCW1 ([facility]) Diastolic blood 84 mm[Hg] 84 mm[Hg] eCW1 ([facility] nt pressure [facility]) Systolic blood 151 mm[Hg] 151 mm[Hg] eCW1 ([facility] t pressure [facility]) Body temperature 98.7 [degF] 98.7 [degF] eCW1 ( [facility]) Respiratory rate 78 /min 78 /min eCW1 ( [facility] Heart rate 78 /min 78 /min eCW1 ([facility]) Body mass index 31.24 kg/m2 31.24 kg/m2 eCW1 (S aint (BMI) [Ratio] [facility]) Body weight 182 [lb_av] 182 [lb_av] eCW1 ([facility]) Body height [in_i] eCW1 ([facility]) Diastolic blood 82 mm[Hg] 82 mm[Hg] eCW1 ([place] [facility]) Systolic blood 146 mm[Hg] 146 mm[Hg] eCW1 ([place] [facility]) Body temperature 99.1 [degF] 99.1 [degF] eCW1 ( [facility]) Respiratory rate 18 /min 18 /min eCW1 ( [facility] Heart rate 78 /min 78 /min eCW1 ([facility]) Body mass index 31.24 kg/m2 31.24 kg/m2 eCW1 (S aint (BMI) [Ratio] [facility]) Body weight 182 [lb_av] 182 [lb_av] eCW1 ([facility] [facility] Body height [in_i] eCW1 ([facility] Diastolic blood 80 mm[Hg] 80 mm[Hg] eCW1 ([facility]) Systolic blood 140 mm[Hg] 140 mm[Hg] eCW1 ([facility] t pressure [facility]) Body temperature 98.2 [degF] 98.2 [degF] eCW1 ( [facility] Respiratory rate 18 /min 18 /min [facility] ( [facility] Body mass index 31.24 kg/m2 31.24 kg/m2 eCW1 (S aint (BMI) [Ratio] [facility]) Body weight 182 [lb_av] 182 [lb_av] [facility] Body height [in_us] eCW1 ([facility] Diastolic blood 80 mm[Hg] 80 mm[Hg] eCW1 ([facility]) Systolic blood 144 mm[Hg] 144 mm[Hg] eCW1 ([facility] t pressure [facility]) Body temperature 98.5 [degF] 98.5 [degF] eCW1 ( [facility] Respiratory rate 18 /min 18 /min eCW1 ( [facility] Heart rate 76 /min 76 /min eCW1 ([facility] Body mass index 31.24 kg/m2 31.24 kg/m2 eCW1 (S aint (BMI) [Ratio] [facility] ) Body weight 182 [lb_av] 182 [lb_av] eCW1 ([facility] ) Body height [in_us] eCW1 ([facility] Heart rate 77 /min 77 /min [facility] Diastolic blood 86 mm[Hg] 86 mm[Hg] [facility] Systolic blood 154 mm[Hg] 154 mm[Hg] [facility] Body temperature 36.207244 36.836747 [facility] Respiratory rate 20 /min 20 /min [facility] Heart rate 83 /min 83 /min [facility] Diastolic blood 96 mm[Hg] 96 mm[Hg] [facility] Systolic blood 166 mm[Hg] 166 mm[Hg] [facility] Body temperature 37.663888 37.149083 [facility] Respiratory rate 20 /min 20 /min [facility] Heart rate 92 /min 92 /min [facility] Diastolic blood 81 mm[Hg] 81 mm[Hg] [facility] Systolic blood 149 mm[Hg] 149 mm[Hg] [facility] pressure [facility] Diastolic blood 79 mm[Hg] 79 mm[Hg] [facility] Systolic blood 144 mm[Hg] 144 mm[Hg] [facility] Body temperature 37.892738 37.276462 [facility] Respiratory rate 20 /min 20 /min [facility] Heart rate 101 /min 101 /min [facility] Body temperature 36.595919 36.666957 [facility] Respiratory rate 18 /min 18 /min [facility] Heart rate 95 /min 95 /min [facility] Diastolic blood 76 mm[Hg] 76 mm[Hg] [facility] Systolic blood 132 mm[Hg] 132 mm[Hg] [facility] Body weight 80.394797 kg 80.623008 kg [facility] Body height 162.850087 162.498879 cm [facility] Body mass index 30.42 kg/m2 30.42 kg/m2 [facility] (BMI) [Ratio] [facility] Heart rate 90 /min 90 /min [facility] Diastolic blood 78 mm[Hg] 78 mm[Hg] [facility] Systolic blood 139 mm[Hg] 139 mm[Hg] [facility] Body temperature 37.781689 37.756921 [facility] Respiratory rate 20 /min 20 /min [facility] Body temperature 37.364752 37.486480 [facility] Respiratory rate 18 /min 18 /min [facility] Heart rate 89 /min 89 /min [facility] Diastolic blood 84 mm[Hg] 84 mm[Hg] [facility] Systolic blood 151 mm[Hg] 151 mm[Hg] [facility] Oxygen saturation 98 % 98 % [facility] Arterial blood [facility] by Pulse oximetry Body temperature 37.609390 37.224002 [facility] Respiratory rate 18 /min 18 /min [facility] Heart rate 86 /min 86 /min [facility] Diastolic blood 86 mm[Hg] 86 mm[Hg] [facility] Systolic blood 153 mm[Hg] 153 mm[Hg] [facility] Oxygen saturation 95 % 95 % [facility] blood [facility] by Pulse oximetry Body temperature 36.799152 36.613178 [facility] Respiratory rate 17 /min 17 /min [facility] Heart rate 75 /min 75 /min [facility] Diastolic blood 77 mm[Hg] 77 mm[Hg] [facility] Systolic blood 149 mm[Hg] 149 mm[Hg] [facility] Oxygen saturation 93 % 93 % [facility] Arterial blood [facility] by Pulse oximetry Oxygen saturation 97 % 97 % [facility] Arterial blood [facility] by Pulse oximetry Body weight 81.900865 kg 81.134032 kg [facility] Oxygen saturation 96 % 96 % [facility] Arterial blood [facility] by Pulse oximetry Body height 162.704740 162.971910 cm [facility] Body mass index 30.8 kg/m2 30.8 kg/m2 [facility] (BMI) [Ratio] [facility] Diastolic blood 70 mm[Hg] 70 mm[Hg] eCW1 ([facility] Systolic blood 140 mm[Hg] 140 mm[Hg] eCW1 ([facility] t [facility]) Body temperature 98.4 [degF] 98.4 [degF] eCW1 ( [facility]) Respiratory rate 16 /min 16 /min eCW1 ( [facility]) Heart rate 72 /min 72 /min eCW1 ([facility]) Body mass index 31.92 kg/m2 31.92 kg/m2 eCW1 (S aint (BMI) [Ratio] [facility]) Body weight 186 [lb_av] 186 [lb_av] eCW1 ([facility]) Body height [in_us] eCW1 ([facility]) Diastolic blood 80 mm[Hg] 80 mm[Hg] eCW1 ([place]) Systolic blood 157 mm[Hg] 157 mm[Hg] eCW1 ([facility] pressure [facility]) Deprecated Oxygen 98 % 98 % eCW1 (S aint saturation in [facility] Cap[facility] blood by [facility]) Oximetry Body temperature 97.7 [degF] 97.7 [degF] eCW1 ( [facility]) Respiratory rate 18 /min 18 /min eCW1 ( [facility]) Heart rate 74 /min 74 /min eCW1 ([facility]) Body mass index 30.89 kg/m2 30.89 kg/m2 eCW1 (S aint (BMI) [Ratio] [facility]) Body weight 180 [lb_av] 180 [lb_av] eCW1 ([facility]) Body height [in_us] eCW1 ([facility]) Diastolic blood 71 mm[Hg] 71 mm[Hg] eCW1 ([place] [facility]) Systolic blood 140 mm[Hg] 140 mm[Hg] eCW1 ([facility] t pressure [facility]) Deprecated Oxygen 100 % 100 % eCW1 (S aint saturation in [facility] Capillary blood by [facility]) Oximetry Body temperature 98 [degF] 98 [degF] eCW1 ([facility]) Respiratory rate 19 /min 19 /min eCW1 ([facility]) Heart rate 76 /min 76 /min eCW1 ([facility]) Body mass index 31.41 kg/m2 31.41 kg/m2 eCW1 (S aint (BMI) [Ratio] [facility]) Body weight 183 [lb_av] 183 [lb_av] eCW1 ([facility]) Body height [in_us] eCW1 ([facility]) Diastolic blood 83 mm[Hg] 83 mm[Hg] eCW1 ([facility] nt pressure [facility]) Systolic blood 140 mm[Hg] 140 mm[Hg] eCW1 ([facility] t pressure [facility]) Body temperature 97.8 [degF] 97.8 [degF] eCW1 ( [facility]) Heart rate 72 /min 72 /min eCW1 ([facility]) Body mass index 32.44 kg/m2 32.44 kg/m2 eCW1 (S aint (BMI) [Ratio] [facility]) Body weight 189 [lb_av] 189 [lb_av] eCW1 ([facility]) Body height [in_us] eCW1 ([facility]) Diastolic blood 79 mm[Hg] 79 mm[Hg] eCW1 ([place] [facility]) Systolic blood 157 mm[Hg] 157 mm[Hg] eCW1 ([facility] t pressure [facility]) Body temperature 97.8 [degF] 97.8 [degF] eCW1 ( [facility]) Respiratory rate 19 /min 19 /min eCW1 (Sa int [facility]) Heart rate 78 /min 78 /min eCW1 ([facility]) Body mass index 32.44 kg/m2 32.44 kg/m2 eCW1 (S aint (BMI) [Ratio] [facility]) Body weight 189 [lb_av] 189 [lb_av] eCW1 ([facility]) Body height [in_us] eCW1 ([facility]) Diastolic blood 70 mm[Hg] 70 mm[Hg] eCW1 ([facility]) Systolic blood 136 mm[Hg] 136 mm[Hg] eCW1 ([facility] Deprecated Oxygen 99 % 99 % eCW1 (S aint saturation in [facility] Capillary blood by Practi ce PC) Oximetry Body temperature 98.7 [degF] 98.7 [degF] eCW1 ( [facility]) Respiratory rate 19 /min 19 /min eCW1 ( [facility]) Heart rate 70 /min 70 /min eCW1 ([facility]) Body mass index 32.44 kg/m2 32.44 kg/m2 eCW1 (S aint (BMI) [Ratio] [facility]) Body weight 189 [lb_av] 189 [lb_av] eCW1 ([facility]) Body height [in_us] eCW1 ([facility]) Diastolic blood 70 mm[Hg] 70 mm[Hg] eCW1 ([facility] Systolic blood 136 mm[Hg] 136 mm[Hg] eCW1 ([facility] Oxygen saturation 99 % 99 % eCW1 (S aint in Arterial blood [facility] Medical by Pulse oximetry Practic e PC) Body temperature 98.7 [degF] 98.7 [degF] eCW1 ( [facility]) Respiratory rate 19 /min 19 /min eCW1 ([facility] Heart rate 70 /min 70 /min eCW1 ([facility]) Body mass index 32.44 kg/m2 32.44 kg/m2 eCW1 (S aint (BMI) [Ratio] [facility]) Body weight 189 [lb_av] 189 [lb_av] eCW1 ([facility]) Body height [in_i] eCW1 ([facility]) Diastolic blood 87 mm[Hg] 87 mm[Hg] eCW1 ([place] [facility] pressure [facility]) Systolic blood 140 mm[Hg] 140 mm[Hg] eCW1 (Melany t pressure [facility]) Deprecated Oxygen 98 % 98 % eCW1 (S aint saturation in [facility] ica Capillary blood by Practi ce PC) Oximetry Body temperature 98.0 [degF] 98.0 [degF] eCW1 ( [facility]) Respiratory rate 18 /min 18 /min eCW1 ( int [facility]) Heart rate 73 /min 73 /min eCW1 ([facility]) Body mass index 32.27 kg/m2 32.27 kg/m2 eCW1 (S aint (BMI) [Ratio] [facility]) Body weight 188 [lb_av] 188 [lb_av] eCW1 ([facility]) Body height [in_us] eCW1 ([facility]) Diastolic blood 70 mm[Hg] 70 mm[Hg] eCW1 ([place] pressure [facility]) Systolic blood 128 mm[Hg] 128 mm[Hg] eCW1 (Melany t pressure [facility]) Deprecated Oxygen 95 % 95 % eCW1 (S aint saturation in [facility] Med ical Capillary blood by Practi ce PC) Oximetry Body temperature 97.3 [degF] 97.3 [degF] eCW1 ( [facility]) Respiratory rate 18 /min 18 /min eCW1 ( [facility]) Heart rate 74 /min 74 /min eCW1 ([facility]) Body mass index 30.55 kg/m2 30.55 kg/m2 eCW1 (S aint (BMI) [Ratio] [facility]) Body weight 178 [lb_av] 178 [lb_av] eCW1 ([facility]) Body height [in_us] eCW1 ([facility]) Diastolic blood 82 mm[Hg] 82 mm[Hg] eCW1 ([place] [facility] pressure [facility]) Systolic blood 145 mm[Hg] 145 mm[Hg] eCW1 (Melany t [facility]) Deprecated Oxygen 98 % 98 % eCW1 (S aint saturation in [facility] Capillary blood by [facility]) Oximetry Body temperature 97.8 [degF] 97.8 [degF] eCW1 ( [facility]) Respiratory rate 18 /min 18 /min eCW1 ([facility]) Heart rate 81 /min 81 /min eCW1 ([facility]) Body mass index 32.27 kg/m2 32.27 kg/m2 eCW1 (S aint (BMI) [Ratio] [facility]) Body weight 188 [lb_av] 188 [lb_av] eCW1 ([facility]) Body height [in_us] eCW1 ([facility]) Body temperature 36.300906 36.233466 [facility] Respiratory rate 20 /min 20 /min [facility] Heart rate 77 /min 77 /min [facility] Diastolic blood 92 mm[Hg] 92 mm[Hg] [facility] Systolic blood 158 mm[Hg] 158 mm[Hg] [facility] Body temperature 37.119584 37.347051 [facility] Respiratory rate 20 /min 20 /min [facility] Heart rate 77 /min 77 /min [facility] Diastolic blood 77 mm[Hg] 77 mm[Hg] [facility] Systolic blood 154 mm[Hg] 154 mm[Hg] [facility] Body temperature 36.347868 36.397929 [facility] Respiratory rate 20 /min 20 /min [facility] Heart rate 81 /min 81 /min [facility] Diastolic blood 71 mm[Hg] 71 mm[Hg] [facility] Systolic blood 140 mm[Hg] 140 mm[Hg] [facility] Body temperature 36.169543 36.877789 [facility] Respiratory rate 20 /min 20 /min [facility] Heart rate 87 /min 87 /min [facility] Diastolic blood 77 mm[Hg] 77 mm[Hg] [facility] Systolic blood 138 mm[Hg] 138 mm[Hg] [facility] Body temperature 36.041841 36.269363 [facility] Respiratory rate 20 /min 20 /min [facility] Heart rate 82 /min 82 /min [facility] Diastolic blood 83 mm[Hg] 83 mm[Hg] [facility] Systolic blood 146 mm[Hg] 146 mm[Hg] [facility] Body weight 84.777768 kg 84.617705 kg [facility] Body height 162.144088 162.707485 cm [facility] Body mass index 32.09 kg/m2 32.09 kg/m2 [facility] (BMI) [Ratio] [facility] Body temperature 36.938881 36.678509 [facility] Respiratory rate 20 /min 20 /min [facility] Heart rate 89 /min 89 /min [facility] Diastolic blood 90 mm[Hg] 90 mm[Hg] [facility] Systolic blood 167 mm[Hg] 167 mm[Hg] [facility] Body temperature 36.863499 36.837886 [facility] Respiratory rate 20 /min 20 /min [facility] Heart rate 90 /min 90 /min [facility] Diastolic blood 84 mm[Hg] 84 mm[Hg] [facility] Systolic blood 161 mm[Hg] 161 mm[Hg] [facility] Body weight 84.244175 kg 84.119028 kg [facility] Body height 162.610026 162.961249 cm [facility] Body mass index 32.09 kg/m2 32.09 kg/m2 [facility] (BMI) [Ratio] Medical [facility] Body temperature 36.167634 36.751886 [facility] Respiratory rate 20 /min 20 /min [facility] Heart rate 79 /min 79 /min [facility] Diastolic blood 84 mm[Hg] 84 mm[Hg] [facility] pressure [facility] Center Systolic blood 150 mm[Hg] 150 mm[Hg] [facility] Oxygen saturation 100 % 100 % [facility] Arterial blood [facility] by Pulse oximetry Respiratory rate 18 /min 18 /min [facility] Heart rate 84 /min 84 /min [facility] Diastolic blood 99 mm[Hg] 99 mm[Hg] [facility] pressure [facility] Center Systolic blood 165 mm[Hg] 165 mm[Hg] [facility] Oxygen saturation 98 % 98 % [facility] Arterial blood [facility] Center by Pulse oximetry Body temperature 36.245161 36.378462 [facility] Oxygen saturation 98 % 98 % [facility] Arterial blood [facility] by Pulse oximetry Body weight 81.390384 kg 81.539473 kg [facility] Oxygen saturation 99 % 99 % [facility] Arterial blood [facility] by Pulse oximetry Body height 162.853536 162.955695 cm [facility] Body mass index 30.8 kg/m2 30.8 kg/m2 [facility] (BMI) [Ratio] [facility] Patient Treatment Plan of Care Planned Activity Planned Date Details Description Data Source (s) Zithromax Z-Jed 250 MG 02/06/2020 12:00:00 eCW1 ([facility]) NITROFURANTOIN, 11/07/2019 12:00:00 eCW1 ([facility] MACROCRYSTALS 25 MG / AM [facility]) Nitrofurantoin, Monohydrate 75 MG Oral Capsule [Macrobid]
[2020-04-16 03:52] LABS: BASO % 1.2 % (0-2.0); EOS % 5.9 % (0-4.5); HEMATOCRIT 29.2 % (35.4-49); HEMOGLOBIN 9.3 GM/dL (11.7-16.9); LYMPH % 22.6 % (8-40); MCH 26.3 pg (25.7-33.7); MCHC 31.9 g/dl (32.0-35.9); MEAN CELL VOLUME 82.3 fl (80-96); MONO % 8.6 % (3.8-10.2); NEUT % 61.7 % (42.8-82.8); PLATELET COUNT 120 K/MM3 (134-434); RBC 3.55 M/mm3 (4.00-5.60); RDW 15.8 % (11.9-15.9); WHITE BLOOD COUNT 6.7 K/mm3 (4.0-10.0)
[2020-04-16 04:01] LABS: INR 0.87 (0.83-1.09); PROTHROMBIN TIME (PATIENT) 10.8 SEC (9.7-13.0)
[2020-04-16 04:03] LABS: ACTIVATED PTT 37.5 SECONDS (25.2-36.5)
[2020-04-16 04:12] LABS: ALBUMIN 3.4 g/dl (3.4-5.0); BLOOD UREA NITROGEN 34.9 mg/dL (7-18); CALCIUM 9.1 mg/dL (8.5-10.1)
[2020-04-16 04:15] LABS: CREATININE 3.4 mg/dL (0.55-1.3)
[2020-04-16 04:17] LABS: BILIRUBIN,TOTAL 0.3 mg/dL (0.2-1); TOT PROT 6.9 g/dl (6.4-8.2)
[2020-04-16] MEDS ORDERED: NITROFURANTOIN MACROCRYSTAL 50 MG CAPSULE (FP) PO SCH (04:30)
[2020-04-16] MEDS ORDERED: NITROFURANTOIN MACROCRYSTAL 50 MG CAPSULE (FP) ONE (04:40)
== END 2020-04-16 05:00 | disposition home or self-care (01) ==
LOC: JER 02:01
DX: R33.9 Retention of urine, unspecified (principal); N39.0 Urinary tract infection, site not specified
CPT/HCPCS: 36415; 80053; 85025; 85610; 85730; 99284-25

== ENCOUNTER 2020-09-09 09:38 | Emergency (ER) | payer MEDICARE, OTHER ==
[2020-09-09 09:57] VITALS: BP 157/74; PULSE 70; TEMP 98.2; BMI 29.8
[2020-09-09] MEDS ORDERED: ONDANSETRON *ODT* 4 MG TABLET SL ONE (10:36)
[2020-09-09] MEDS ORDERED: ONDANSETRON *ODT* 4 MG TABLET ONE (10:50)
[2020-09-09 11:15] LABS: BASO % 0.6 % (0-2.0); EOS % 3.2 % (0-4.5); HEMATOCRIT 28.5 % (35.4-49); HEMOGLOBIN 9.1 GM/dL (11.7-16.9); LYMPH % 11.7 % (8-40); MCH 24.8 pg (25.7-33.7); MCHC 31.9 g/dl (32.0-35.9); MEAN CELL VOLUME 77.9 fl (80-96); MEAN PLT VOLUME 9.8 fl (7.5-11.1); MONO % 4.6 % (3.8-10.2); NEUT % 79.9 % (42.8-82.8); PLATELET COUNT 167 K/MM3 (134-434); RBC 3.67 M/mm3 (4.00-5.60); RDW 16.8 % (11.9-15.9); WHITE BLOOD COUNT 9.4 K/mm3 (4.0-10.0)
[2020-09-09 11:29] LABS: POTASSIUM 4.5 mmol/L (3.5-5.1)
[2020-09-09 11:31] LABS: ALBUMIN 3.7 g/dl (3.4-5.0); BLOOD UREA NITROGEN 51.3 mg/dL (7-18); CALCIUM 9.2 mg/dL (8.5-10.1)
[2020-09-09 11:34] LABS: CREATININE 4.1 mg/dL (0.55-1.3)
[2020-09-09 11:36] LABS: BILIRUBIN,TOTAL 0.3 mg/dL (0.2-1); TOT PROT 7.6 g/dl (6.4-8.2)
== END 2020-09-09 12:58 | disposition home or self-care (01) ==
LOC: JER 09:38
DX: I10 Essential (primary) hypertension (principal)
CPT/HCPCS: 36415; 80053; 82550; 84484; 85025; 93005; 93010; 99284-25; Q0162

== ENCOUNTER 2020-11-27 04:51 | Day surgery (SDC) | payer MEDICARE, OTHER ==
[2020-11-27 08:15] LABS: BASO % 0.8 % (0-2.0); EOS % 4.1 % (0-4.5); HEMATOCRIT 23.7 % (35.4-49); HEMOGLOBIN 7.7 GM/dL (11.7-16.9); LYMPH % 16.7 % (8-40); MCH 24.4 pg (25.7-33.7); MCHC 32.3 g/dl (32.0-35.9); MEAN CELL VOLUME 75.6 fl (80-96); MEAN PLT VOLUME 9.7 fl (7.5-11.1); MONO % 8.3 % (3.8-10.2); NEUT % 70.1 % (42.8-82.8); PLATELET COUNT 140 K/MM3 (134-434); RBC 3.13 M/mm3 (4.00-5.60); RDW 19.8 % (11.9-15.9); WHITE BLOOD COUNT 8.1 K/mm3 (4.0-10.0)
[2020-11-27 08:22] LABS: INR 0.93 (0.83-1.09); PROTHROMBIN TIME (PATIENT) 11.5 SEC (9.7-13.0)
[2020-11-27] MEDS ORDERED: MIDAZOLAM HCL 2 MG/2 ML SINGLE DOSE VIAL IVPUSH ONE ×2 (11:19→11:30)
[2020-11-27 16:19] VITALS: TEMP 98.1
[2020-11-27 17:35] VITALS: BP 160/88; PULSE 76
== END 2020-11-27 15:15 | disposition home or self-care (01) ==
LOC: JRADIR 04:51
PROVIDERS: ATTEND Urology
PROC: 0T9130Z Drainage of Left Kidney with Drainage Device, Percutaneous Approach (ICD-10-PCS; principal; 2020-11-27)
DX: N13.30 Unspecified hydronephrosis (principal)
CPT/HCPCS: 36415; 50432; 85025; 85610; 87070; 87075; 87102; 87116; 87205; 87206; 87210; 88108; 88305-TC

== ENCOUNTER 2020-12-08 11:59 | Inpatient (IN) | payer MEDICARE, OTHER ==
[2020-12-08 13:56] LABS: BASO % 0.8 % (0-2.0); EOS % 2.4 % (0-4.5); HEMATOCRIT 24.2 % (35.4-49); HEMOGLOBIN 7.7 GM/dL (11.7-16.9); LYMPH % 13.6 % (8-40); MCH 23.9 pg (25.7-33.7); MCHC 31.7 g/dl (32.0-35.9); MEAN CELL VOLUME 75.5 fl (80-96); MEAN PLT VOLUME 9.8 fl (7.5-11.1); MONO % 5.2 % (3.8-10.2); PLATELET COUNT 162 10^3/uL (134-434); RBC 3.21 M/mm3 (4.00-5.60); RDW 19.8 % (11.9-15.9); WHITE BLOOD COUNT 8.9 K/mm3 (4.0-10.0)
[2020-12-08 14:02] LABS: INR 0.94 (0.83-1.09); PROTHROMBIN TIME (PATIENT) 11.4 SEC (9.7-13.0)
[2020-12-08 14:17] LABS: RETICULOCYTES 2.44 % (0.5-1.5)
[2020-12-08 14:23] LABS: CALCIUM 8.7 mg/dL (8.5-10.1)
[2020-12-08 14:24] LABS: ALBUMIN 3.4 g/dl (3.4-5.0); BLOOD UREA NITROGEN 59.8 mg/dL (7-18)
[2020-12-08 14:27] LABS: CREATININE 5.4 mg/dL (0.55-1.3)
[2020-12-08 14:28] LABS: BILIRUBIN,TOTAL 0.3 mg/dL (0.2-1); TOT PROT 7.1 g/dl (6.4-8.2)
[2020-12-08 15:06] LABS: EPI CELLS 28 /uL (0-25.1); HYALINE CASTS 0 /uL (0-3.1); PH,URINE 8.5 (5.0-8.0); URINE APPEARANCE CLOUDY; URINE BACTERIA 3862 /uL (0-1359); URINE BILIRUBIN NEGATIVE (NEGATIVE); URINE COLOR YELLOW; URINE GLUCOSE (UA) 1+ (NEGATIVE); URINE KETONE NEGATIVE (NEGATIVE); URINE LEUK ESTERASE 1+ (NEGATIVE); URINE NITRITE NEGATIVE (NEGATIVE); URINE PROTEIN 4+ (NEGATIVE); URINE RBC 156 /uL (0-23.9); URINE UROBILINOGEN 0.2 mg/dL (0.2-1.0); URINE WBC 44 /uL (0-25.8)
[2020-12-08] MEDS ORDERED: CEFTRIAXONE 1,000 MG in DEXTROSE 5%-WATER - 50 ML IVPB ONE (15:46)
[2020-12-08 16:00] LABS: EPI CELLS 3 /uL (0-25.1); HYALINE CASTS 0 /uL (0-3.1); URINE APPEARANCE CLEAR; URINE BACTERIA 25 /uL (0-1359); URINE BILIRUBIN NEGATIVE (NEGATIVE); URINE COLOR YELLOW; URINE GLUCOSE (UA) NEGATIVE (NEGATIVE); URINE KETONE NEGATIVE (NEGATIVE); URINE LEUK ESTERASE NEGATIVE (NEGATIVE); URINE NITRITE NEGATIVE (NEGATIVE); URINE PROTEIN 3+ (NEGATIVE); URINE RBC 12 /uL (0-23.9); URINE UROBILINOGEN 0.2 mg/dL (0.2-1.0); URINE WBC 22 /uL (0-25.8)
[2020-12-08] MEDS ORDERED: CEFTRIAXONE 1 GM/50 ML BAG ONE (16:20)
[2020-12-08] MEDS ORDERED: VANCOMYCIN 1 GM in D5W (PRE-DOCKED) 1,000 MG/250 ML IVPB ONE (19:35)
[2020-12-08] MEDS ORDERED: SODIUM CHLORIDE 1,000 ML IV SCH (19:45)
[2020-12-08] MEDS ORDERED: VANCOMYCIN 1 GRAM (PRE-DOCKED) 1,000 MG/250 ML BAG IVPB ONE (19:48)
[2020-12-08] MEDS ORDERED: HEPARIN NA (PORCINE) 5,000 UNITS/ML 1ML VIAL SQ SCH (22:00)
[2020-12-08] MEDS ORDERED: INSULIN (NOVOLOG) ASPART 100 UNITS/ML 10ML VIAL ONE (22:30)
[2020-12-08] MEDS ORDERED: LABETALOL HCL 100 MG TABLET (FP) ONE (22:30)
[2020-12-08] MEDS: LABETALOL HCL 200 MG TABLET (FP) PO SCH (22:34)
[2020-12-08] MEDS: SODIUM BICARBONATE 650 MG TABLET PO SCH (22:35)
[2020-12-08] MEDS: ATORVASTATIN CA 40 MG TABLET (FP) PO SCH (22:35)
[2020-12-08] MEDS: hydrALAZINE HCL 50 MG TABLET (FP) PO SCH (22:35)
[2020-12-08] MEDS: INSULIN SLIDING SCALE (NOVOLOG) 1 VIAL SQ SCH (22:39)
[2020-12-09] MEDS ORDERED: DEXTROSE 5%-WATER - 50 ML IVPB ONE ×3 (01:50→13:56)
[2020-12-09] MEDS ORDERED: PIPERACILLIN/TAZOBACTAM 2.25 GM VIAL IVPB ONE ×2 (01:50→09:45)
[2020-12-09] MEDS ORDERED: PIPERACILLIN/TAZOB 3.375 GM 3.375 GM in DEXTROSE 5%-WATER - 50 ML IVPB SCH (02:00)
[2020-12-09] MEDS ORDERED: PIPERACILLIN/TAZOB 3.375 GM 2.25 GM in DEXTROSE 5%-WATER - 50 ML IVPB SCH (02:00)
[2020-12-09] MEDS: PIPERACILLIN/TAZOB 2.25 GM 2.25 GM in DEXTROSE 5%-WATER - 50 ML IVPB SCH ×2 (02:10→10:12)
[2020-12-09 03:23] VITALS: BMI 30.2
[2020-12-09] MEDS: SODIUM BICARBONATE 650 MG TABLET PO SCH ×3 (06:17→21:32)
[2020-12-09] MEDS: INSULIN (LEVEMIR) 100 UNITS/ML UNITS SQ SCH (06:17)
[2020-12-09] MEDS: INSULIN SLIDING SCALE (NOVOLOG) 1 VIAL SQ SCH ×4 (06:17→22:02)
[2020-12-09] MEDS ORDERED: INSULIN (NOVOLOG) ASPART 100 UNITS/ML 10ML VIAL ONE ×2 (06:42→17:14)
[2020-12-09 08:14] LABS: HEMOGLOBIN 7.5 GM/dL (11.7-16.9); MCH 24.2 pg (25.7-33.7); MCHC 32.5 g/dl (32.0-35.9); MEAN CELL VOLUME 74.7 fl (80-96); MEAN PLT VOLUME 9.1 fl (7.5-11.1); PLATELET COUNT 164 10^3/uL (134-434); RBC 3.08 M/mm3 (4.00-5.60); RDW 19.7 % (11.9-15.9); WHITE BLOOD COUNT 8.2 K/mm3 (4.0-10.0)
[2020-12-09 08:45] LABS: ALBUMIN 3.2 g/dl (3.4-5.0); BLOOD UREA NITROGEN 57.8 mg/dL (7-18); CALCIUM 8.3 mg/dL (8.5-10.1); MAGNESIUM 2.3 mg/dL (1.8-2.4)
[2020-12-09 08:48] LABS: CREATININE 5.4 mg/dL (0.55-1.3)
[2020-12-09 08:49] LABS: PHOSPHOROUS 4.3 mg/dL (2.5-4.9)
[2020-12-09 08:50] LABS: BILIRUBIN,TOTAL 0.4 mg/dL (0.2-1); TOT PROT 6.6 g/dl (6.4-8.2)
[2020-12-09 08:53] LABS: INR 0.94 (0.83-1.09); PROTHROMBIN TIME (PATIENT) 11.6 SEC (9.7-13.0)
[2020-12-09] MEDS ORDERED: LABETALOL HCL 100 MG TABLET (FP) ONE ×2 (09:44→21:23)
[2020-12-09] MEDS: hydrALAZINE HCL 50 MG TABLET (FP) PO SCH ×2 (10:11→21:32)
[2020-12-09] MEDS: amLODIPine BESYLATE 10 MG TABLET (FP) PO SCH (10:12)
[2020-12-09] MEDS: LABETALOL HCL 200 MG TABLET (FP) PO SCH ×2 (10:13→21:31)
[2020-12-09 11:13] LABS: EPI CELLS 22 /uL (0-25.1); HYALINE CASTS 1 /uL (0-3.1); URINE APPEARANCE CLOUDY; URINE BACTERIA 164 /uL (0-1359); URINE BILIRUBIN NEGATIVE (NEGATIVE); URINE COLOR YELLOW; URINE GLUCOSE (UA) 1+ (NEGATIVE); URINE KETONE NEGATIVE (NEGATIVE); URINE LEUK ESTERASE 1+ (NEGATIVE); URINE NITRITE NEGATIVE (NEGATIVE); URINE PROTEIN 3+ (NEGATIVE); URINE UROBILINOGEN 0.2 mg/dL (0.2-1.0); URINE WBC 47 /uL (0-25.8)
[2020-12-09 11:14] LABS: EPI CELLS >36 /uL (0-25.1); HYALINE CASTS 2 /uL (0-3.1); PH,URINE 7.5 (5.0-8.0); URINE APPEARANCE CLEAR; URINE BACTERIA 32 /uL (0-1359); URINE BILIRUBIN NEGATIVE (NEGATIVE); URINE COLOR YELLOW; URINE GLUCOSE (UA) TRACE (NEGATIVE); URINE KETONE NEGATIVE (NEGATIVE); URINE LEUK ESTERASE 2+ (NEGATIVE); URINE NITRITE NEGATIVE (NEGATIVE); URINE PROTEIN 4+ (NEGATIVE); URINE RBC 26 /uL (0-23.9); URINE UROBILINOGEN 0.2 mg/dL (0.2-1.0); URINE WBC 291 /uL (0-25.8)
[2020-12-09] MEDS ORDERED: CEFTRIAXONE 1 GM in DEXTROSE 5%-WATER - 50 ML IVPB SCH (11:15)
[2020-12-09 11:37] LABS: URINE RBC 237.7 /uL (0-23.9); YEAST NO SEEN (NEGATIVE)
[2020-12-09] MEDS ORDERED: cefTRIAXone SODIUM 1 GM VIAL ONE (13:56)
[2020-12-09] MEDS ORDERED: IRON SUCROSE INJECTION 200 MG in SODIUM CHLORIDE 90 ML IVPB ONE (15:00)
[2020-12-09] MEDS: ATORVASTATIN CA 40 MG TABLET (FP) PO SCH (21:32)
[2020-12-10] MEDS: SODIUM BICARBONATE 650 MG TABLET PO SCH ×3 (05:30→21:04)
[2020-12-10] MEDS: INSULIN SLIDING SCALE (NOVOLOG) 1 VIAL SQ SCH ×4 (06:37→21:11)
[2020-12-10] MEDS: INSULIN (LEVEMIR) 100 UNITS/ML UNITS SQ SCH (06:55)
[2020-12-10] MEDS ORDERED: IRON SUCROSE INJECTION 200 MG in SODIUM CHLORIDE 90 ML IVPB ONE (08:01)
[2020-12-10 08:44] LABS: BASO % 0.8 % (0-2.0); EOS % 3.6 % (0-4.5); HEMOGLOBIN 7.5 GM/dL (11.7-16.9); LYMPH % 16.9 % (8-40); MCH 24.3 pg (25.7-33.7); MCHC 32.5 g/dl (32.0-35.9); MEAN CELL VOLUME 74.9 fl (80-96); MEAN PLT VOLUME 9.2 fl (7.5-11.1); MONO % 7.3 % (3.8-10.2); NEUT % 71.4 % (42.8-82.8); PLATELET COUNT 152 10^3/uL (134-434); RBC 3.07 M/mm3 (4.00-5.60); RDW 19.9 % (11.9-15.9); WHITE BLOOD COUNT 7.5 K/mm3 (4.0-10.0)
[2020-12-10 09:07] LABS: ALBUMIN 3.2 g/dl (3.4-5.0); CALCIUM 8.5 mg/dL (8.5-10.1)
[2020-12-10 09:08] LABS: BLOOD UREA NITROGEN 55.3 mg/dL (7-18)
[2020-12-10 09:10] LABS: CREATININE 5.1 mg/dL (0.55-1.3)
[2020-12-10 09:12] LABS: BILIRUBIN,TOTAL 0.6 mg/dL (0.2-1); TOT PROT 6.4 g/dl (6.4-8.2)
[2020-12-10] MEDS ORDERED: LABETALOL HCL 100 MG TABLET (FP) ONE ×2 (09:29→20:59)
[2020-12-10] MEDS ORDERED: DEXTROSE 5%-WATER - 50 ML IVPB ONE ×2 (09:30→17:09)
[2020-12-10] MEDS ORDERED: PIPERACILLIN/TAZOBACTAM 2.25 GM VIAL IVPB ONE ×2 (09:30→17:09)
[2020-12-10] MEDS: PIPERACILLIN/TAZOB 2.25 GM 2.25 GM in DEXTROSE 5%-WATER - 50 ML IVPB SCH ×2 (09:40→17:23)
[2020-12-10] MEDS: hydrALAZINE HCL 50 MG TABLET (FP) PO SCH ×2 (09:41→21:03)
[2020-12-10] MEDS: amLODIPine BESYLATE 10 MG TABLET (FP) PO SCH (09:41)
[2020-12-10] MEDS: ASPIRIN COATED 81 MG TABLET.EC PO SCH (09:41)
[2020-12-10] MEDS: LABETALOL HCL 200 MG TABLET (FP) PO SCH ×2 (09:41→21:03)
[2020-12-10] MEDS ORDERED: INSULIN (NOVOLOG) ASPART 100 UNITS/ML 10ML VIAL ONE ×2 (11:19→16:18)
[2020-12-10] MEDS: ATORVASTATIN CA 40 MG TABLET (FP) PO SCH (21:04)
[2020-12-10] MEDS ORDERED: MELATONIN 5 MG TABLETS PO ONE (21:24)
[2020-12-11] MEDS ORDERED: PIPERACILLIN/TAZOBACTAM 2.25 GM VIAL IVPB ONE ×3 (00:58→17:34)
[2020-12-11] MEDS ORDERED: DEXTROSE 5%-WATER - 50 ML IVPB ONE ×3 (00:58→17:34)
[2020-12-11] MEDS: PIPERACILLIN/TAZOB 2.25 GM 2.25 GM in DEXTROSE 5%-WATER - 50 ML IVPB SCH ×3 (01:39→17:35)
[2020-12-11] MEDS: INSULIN (LEVEMIR) 100 UNITS/ML UNITS SQ SCH (06:09)
[2020-12-11] MEDS: SODIUM BICARBONATE 650 MG TABLET PO SCH ×3 (06:10→21:51)
[2020-12-11] MEDS ORDERED: LABETALOL HCL 100 MG TABLET (FP) ONE ×2 (09:26→21:13)
[2020-12-11] MEDS: amLODIPine BESYLATE 10 MG TABLET (FP) PO SCH (09:30)
[2020-12-11] MEDS: ASPIRIN COATED 81 MG TABLET.EC PO SCH (09:30)
[2020-12-11] MEDS: LABETALOL HCL 200 MG TABLET (FP) PO SCH ×2 (09:30→21:48)
[2020-12-11] MEDS: hydrALAZINE HCL 50 MG TABLET (FP) PO SCH ×2 (09:30→21:49)
[2020-12-11] MEDS: INSULIN SLIDING SCALE (NOVOLOG) 1 VIAL SQ SCH ×3 (11:51→21:51)
[2020-12-11] MEDS ORDERED: INSULIN (NOVOLOG) ASPART 100 UNITS/ML 10ML VIAL ONE (16:31)
[2020-12-11] MEDS: ATORVASTATIN CA 40 MG TABLET (FP) PO SCH (21:49)
[2020-12-12] MEDS ORDERED: PIPERACILLIN/TAZOBACTAM 2.25 GM VIAL IVPB ONE ×3 (01:03→17:44)
[2020-12-12] MEDS ORDERED: DEXTROSE 5%-WATER - 50 ML IVPB ONE ×3 (01:03→17:44)
[2020-12-12] MEDS: PIPERACILLIN/TAZOB 2.25 GM 2.25 GM in DEXTROSE 5%-WATER - 50 ML IVPB SCH ×3 (01:24→17:45)
[2020-12-12] MEDS: SODIUM BICARBONATE 650 MG TABLET PO SCH ×3 (06:17→22:00)
[2020-12-12] MEDS: INSULIN (LEVEMIR) 100 UNITS/ML UNITS SQ SCH ×2 (06:17→06:47)
[2020-12-12] MEDS: INSULIN SLIDING SCALE (NOVOLOG) 1 VIAL SQ SCH ×4 (06:17→21:59)
[2020-12-12] MEDS ORDERED: PT OWN MED DRAWER 7, Y5N ONE (06:53)
[2020-12-12] MEDS ORDERED: INSULIN (LEVEMIR) 100 UNITS/ML UNITS SQ ONE (07:27)
[2020-12-12] MEDS ORDERED: INSULIN (NOVOLOG) ASPART 100 UNITS/ML 10ML VIAL ONE ×2 (07:27→21:55)
[2020-12-12] MEDS ORDERED: LABETALOL HCL 100 MG TABLET (FP) ONE ×2 (09:40→21:54)
[2020-12-12] MEDS: LABETALOL HCL 200 MG TABLET (FP) PO SCH ×2 (09:42→22:07)
[2020-12-12] MEDS: hydrALAZINE HCL 50 MG TABLET (FP) PO SCH ×2 (09:42→22:00)
[2020-12-12] MEDS: amLODIPine BESYLATE 10 MG TABLET (FP) PO SCH (09:43)
[2020-12-12] MEDS: ASPIRIN COATED 81 MG TABLET.EC PO SCH (10:44)
[2020-12-12] MEDS: ATORVASTATIN CA 40 MG TABLET (FP) PO SCH (22:01)
[2020-12-13] MEDS ORDERED: DEXTROSE 5%-WATER - 50 ML IVPB ONE ×3 (02:47→17:04)
[2020-12-13] MEDS ORDERED: PIPERACILLIN/TAZOBACTAM 2.25 GM VIAL IVPB ONE ×3 (02:47→17:04)
[2020-12-13] MEDS: PIPERACILLIN/TAZOB 2.25 GM 2.25 GM in DEXTROSE 5%-WATER - 50 ML IVPB SCH ×3 (03:28→17:50)
[2020-12-13] MEDS: INSULIN SLIDING SCALE (NOVOLOG) 1 VIAL SQ SCH ×5 (06:11→22:07)
[2020-12-13] MEDS: INSULIN (LEVEMIR) 100 UNITS/ML UNITS SQ SCH (06:12)
[2020-12-13] MEDS: SODIUM BICARBONATE 650 MG TABLET PO SCH ×3 (06:12→22:06)
[2020-12-13 08:47] LABS: EPI CELLS 27 /uL (0-25.1); HYALINE CASTS 1 /uL (0-3.1); PH,URINE 8.5 (5.0-8.0); URINE APPEARANCE CLOUDY; URINE BACTERIA 82 /uL (0-1359); URINE BILIRUBIN NEGATIVE (NEGATIVE); URINE COLOR YELLOW; URINE GLUCOSE (UA) TRACE (NEGATIVE); URINE KETONE NEGATIVE (NEGATIVE); URINE LEUK ESTERASE 1+ (NEGATIVE); URINE NITRITE NEGATIVE (NEGATIVE); URINE PROTEIN 3+ (NEGATIVE); URINE UROBILINOGEN 0.2 mg/dL (0.2-1.0); URINE WBC 31 /uL (0-25.8)
[2020-12-13 09:41] LABS: URINE RBC 433.2 /uL (0-23.9)
[2020-12-13 09:50] LABS: BASO % 1.3 % (0-2.0); EOS % 3.8 % (0-4.5); HEMATOCRIT 24.9 % (35.4-49); HEMOGLOBIN 7.9 GM/dL (11.7-16.9); LYMPH % 21.4 % (8-40); MCH 24.2 pg (25.7-33.7); MCHC 31.7 g/dl (32.0-35.9); MEAN CELL VOLUME 76.5 fl (80-96); MEAN PLT VOLUME 9.8 fl (7.5-11.1); MONO % 6.2 % (3.8-10.2); NEUT % 67.3 % (42.8-82.8); PLATELET COUNT 166 10^3/uL (134-434); RBC 3.26 M/mm3 (4.00-5.60); RDW 19.7 % (11.9-15.9)
[2020-12-13] MEDS ORDERED: LABETALOL HCL 100 MG TABLET (FP) ONE ×2 (10:10→21:30)
[2020-12-13] MEDS ORDERED: PT OWN MED DRAWER 7, Y5N ONE (10:11)
[2020-12-13] MEDS: hydrALAZINE HCL 50 MG TABLET (FP) PO SCH ×2 (10:16→22:06)
[2020-12-13] MEDS: amLODIPine BESYLATE 10 MG TABLET (FP) PO SCH (10:17)
[2020-12-13] MEDS: LABETALOL HCL 200 MG TABLET (FP) PO SCH ×2 (10:17→22:07)
[2020-12-13] MEDS: ASPIRIN COATED 81 MG TABLET.EC PO SCH (10:17)
[2020-12-13 10:18] LABS: CALCIUM 8.9 mg/dL (8.5-10.1)
[2020-12-13 10:19] LABS: BLOOD UREA NITROGEN 59.8 mg/dL (7-18)
[2020-12-13 10:22] LABS: CREATININE 5.5 mg/dL (0.55-1.3)
[2020-12-13 10:47] LABS: URINE CRYSTALS NON SEEN /hpf; YEAST NON SEEN (NEGATIVE)
[2020-12-13] MEDS: ATORVASTATIN CA 40 MG TABLET (FP) PO SCH (22:06)
[2020-12-14] MEDS ORDERED: PIPERACILLIN/TAZOBACTAM 2.25 GM VIAL IVPB ONE ×4 (03:07→17:16)
[2020-12-14] MEDS ORDERED: DEXTROSE 5%-WATER - 50 ML IVPB ONE ×4 (03:07→17:16)
[2020-12-14] MEDS: PIPERACILLIN/TAZOB 2.25 GM 2.25 GM in DEXTROSE 5%-WATER - 50 ML IVPB SCH ×3 (03:10→17:40)
[2020-12-14] MEDS: INSULIN (LEVEMIR) 100 UNITS/ML UNITS SQ SCH (06:23)
[2020-12-14] MEDS: INSULIN SLIDING SCALE (NOVOLOG) 1 VIAL SQ SCH ×4 (06:24→21:36)
[2020-12-14] MEDS: SODIUM BICARBONATE 650 MG TABLET PO SCH ×3 (06:24→21:06)
[2020-12-14] MEDS ORDERED: LABETALOL HCL 100 MG TABLET (FP) ONE ×2 (08:58→20:57)
[2020-12-14 09:23] LABS: BASO % 0.7 % (0-2.0); EOS % 4.5 % (0-4.5); HEMATOCRIT 23.4 % (35.4-49); HEMOGLOBIN 7.4 GM/dL (11.7-16.9); LYMPH % 19.6 % (8-40); MCH 24.4 pg (25.7-33.7); MCHC 31.6 g/dl (32.0-35.9); MEAN CELL VOLUME 77.2 fl (80-96); MEAN PLT VOLUME 9.9 fl (7.5-11.1); MONO % 7.7 % (3.8-10.2); NEUT % 67.5 % (42.8-82.8); PLATELET COUNT 150 10^3/uL (134-434); RBC 3.03 M/mm3 (4.00-5.60); RDW 20.2 % (11.9-15.9); WHITE BLOOD COUNT 7.5 K/mm3 (4.0-10.0)
[2020-12-14 09:55] LABS: ALBUMIN 3.1 g/dl (3.4-5.0)
[2020-12-14 09:56] LABS: BLOOD UREA NITROGEN 50.8 mg/dL (7-18)
[2020-12-14 09:59] LABS: CALCIUM 8.4 mg/dL (8.5-10.1)
[2020-12-14] MEDS: hydrALAZINE HCL 50 MG TABLET (FP) PO SCH ×2 (09:59→21:06)
[2020-12-14] MEDS: LABETALOL HCL 200 MG TABLET (FP) PO SCH ×2 (09:59→21:06)
[2020-12-14] MEDS: amLODIPine BESYLATE 10 MG TABLET (FP) PO SCH (09:59)
[2020-12-14] MEDS: ASPIRIN COATED 81 MG TABLET.EC PO SCH (09:59)
[2020-12-14 10:03] LABS: CREATININE 5.7 mg/dL (0.55-1.3); PHOSPHOROUS 5.6 mg/dL (2.5-4.9)
[2020-12-14 10:04] LABS: BILIRUBIN,TOTAL 0.4 mg/dL (0.2-1); TOT PROT 6.3 g/dl (6.4-8.2)
[2020-12-14] MEDS: ATORVASTATIN CA 40 MG TABLET (FP) PO SCH (21:06)
[2020-12-15] MEDS ORDERED: DEXTROSE 5%-WATER - 50 ML IVPB ONE ×2 (01:22→08:18)
[2020-12-15] MEDS ORDERED: PIPERACILLIN/TAZOBACTAM 2.25 GM VIAL IVPB ONE ×2 (01:22→08:18)
[2020-12-15] MEDS: PIPERACILLIN/TAZOB 2.25 GM 2.25 GM in DEXTROSE 5%-WATER - 50 ML IVPB SCH ×2 (01:27→09:56)
[2020-12-15 05:24] VITALS: PULSE 83; TEMP 98
[2020-12-15] MEDS: SODIUM BICARBONATE 650 MG TABLET PO SCH (06:08)
[2020-12-15] MEDS: INSULIN SLIDING SCALE (NOVOLOG) 1 VIAL SQ SCH ×2 (06:09→11:23)
[2020-12-15] MEDS: INSULIN (LEVEMIR) 100 UNITS/ML UNITS SQ SCH (06:09)
[2020-12-15 09:07] LABS: EOS % 4.6 % (0-4.5); HEMOGLOBIN 7.3 GM/dL (11.7-16.9); LYMPH % 19.3 % (8-40); MCH 24.4 pg (25.7-33.7); MCHC 31.5 g/dl (32.0-35.9); MEAN CELL VOLUME 77.2 fl (80-96); MONO % 6.6 % (3.8-10.2); NEUT % 68.5 % (42.8-82.8); PLATELET COUNT 144 10^3/uL (134-434); RBC 2.98 M/mm3 (4.00-5.60); RDW 20.2 % (11.9-15.9)
[2020-12-15] MEDS ORDERED: LABETALOL HCL 100 MG TABLET (FP) ONE (09:52)
[2020-12-15] MEDS: hydrALAZINE HCL 50 MG TABLET (FP) PO SCH (09:56)
[2020-12-15] MEDS: amLODIPine BESYLATE 10 MG TABLET (FP) PO SCH (09:56)
[2020-12-15] MEDS: ASPIRIN COATED 81 MG TABLET.EC PO SCH (09:56)
[2020-12-15] MEDS: LABETALOL HCL 200 MG TABLET (FP) PO SCH (09:56)
[2020-12-15 10:06] LABS: CALCIUM 8.5 mg/dL (8.5-10.1)
[2020-12-15 10:07] LABS: BLOOD UREA NITROGEN 63.3 mg/dL (7-18)
[2020-12-15 10:09] LABS: CREATININE 5.6 mg/dL (0.55-1.3); PHOSPHOROUS 5.5 mg/dL (2.5-4.9)
[2020-12-15 10:48] VITALS: BP 151/74
[2020-12-15] MEDS ORDERED: FUROSEMIDE 40 MG/4 ML INJECTABLE VIAL IVPUSH ONE (11:09)
[2020-12-15] MEDS ORDERED: INSULIN (NOVOLOG) ASPART 100 UNITS/ML 10ML VIAL ONE (11:12)
== END 2020-12-15 12:40 | disposition home or self-care (01) | DRG 699 ==
LOC: JER 11:59 → JERBED 14:42 → J6S 21:01
PROVIDERS: ATTEND Internal Medicine
PROC: 0T25X0Z Change Drainage Device in Kidney, External Approach (ICD-10-PCS; principal; 2020-12-12)
DX: T83.512A Infection and inflammatory reaction due to nephrostomy catheter, initial encounter (principal); N17.9 Acute kidney failure, unspecified; N39.0 Urinary tract infection, site not specified; N18.5 Chronic kidney disease, stage 5; I25.10 Atherosclerotic heart disease of native coronary artery without angina pectoris; E78.5 Hyperlipidemia, unspecified; I25.2 Old myocardial infarction; N40.0 Benign prostatic hyperplasia without lower urinary tract symptoms; K21.9 Gastro-esophageal reflux disease without esophagitis; K57.90 Diverticulosis of intestine, part unspecified, without perforation or abscess without bleeding; R32 Unspecified urinary incontinence; E03.9 Hypothyroidism, unspecified; B95.2 Enterococcus as the cause of diseases classified elsewhere; D50.9 Iron deficiency anemia, unspecified; I12.9 Hypertensive chronic kidney disease with stage 1 through stage 4 chronic kidney disease, or unspecified chronic kidney disease; E11.22 Type 2 diabetes mellitus with diabetic chronic kidney disease; Z86.73 Personal history of transient ischemic attack (TIA), and cerebral infarction without residual deficits; Z95.5 Presence of coronary angioplasty implant and graft; Z85.46 Personal history of malignant neoplasm of prostate; Z93.6 Other artificial openings of urinary tract status
CPT/HCPCS: 36415; 50435; 74176-TC; 80048; 80053; 81003; 82272; 82728; 82962; 83010; 83540; 83550; 83615; 83735; 84100; 84466; 84484; 85025; 85027; 85045; 85610; 86850; 86900; 86901; 87086; 87186; 93005; 93010; 97116-GP; 97162-GP; 99285-25; A4358; C1729; C1769; C9803; J1756; U0003; U0005

== ENCOUNTER 2020-12-19 21:27 | Inpatient (IN) | payer MEDICARE, OTHER ==
[2020-12-19 21:30] VITALS: BMI 30.2
[2020-12-19] MEDS ORDERED: ONDANSETRON 4 MG/2 ML VIAL IVPUSH ONE (22:18)
[2020-12-19] MEDS ORDERED: SODIUM CHLORIDE 0.9% 500 ML INFUS.BAG IV ONE (22:18)
[2020-12-19] MEDS ORDERED: ACETAMINOPHEN 1000 MG/100 ML VIAL (NON FORMULARY) IVPB ONE (22:23)
[2020-12-19] MEDS ORDERED: ACETAMINOPHEN INJECTION 100 ML IVPB ONE (22:30)
[2020-12-19] MEDS ORDERED: ONDANSETRON 4 MG/2 ML VIAL ONE (22:30)
[2020-12-19 22:53] LABS: BASO % 0.7 % (0-2.0); HEMATOCRIT 21.5 % (35.4-49); LYMPH % 12.4 % (8-40); MCH 24.5 pg (25.7-33.7); MCHC 31.8 g/dl (32.0-35.9); MEAN CELL VOLUME 77.1 fl (80-96); MEAN PLT VOLUME 9.2 fl (7.5-11.1); MONO % 6.5 % (3.8-10.2); NEUT % 77.4 % (42.8-82.8); PLATELET COUNT 121 10^3/uL (134-434); RBC 2.79 M/mm3 (4.00-5.60); RDW 20.5 % (11.9-15.9); WHITE BLOOD COUNT 7.8 K/mm3 (4.0-10.0)
[2020-12-19 22:55] LABS: HEMOGLOBIN 6.8 GM/dL (11.7-16.9)
[2020-12-19 23:04] LABS: ALBUMIN 3.2 g/dl (3.4-5.0); BLOOD UREA NITROGEN 58.2 mg/dL (7-18); CALCIUM 8.1 mg/dL (8.5-10.1)
[2020-12-19 23:07] LABS: CREATININE 5.2 mg/dL (0.55-1.3)
[2020-12-19 23:10] LABS: BILIRUBIN,TOTAL 0.5 mg/dL (0.2-1); TOT PROT 6.2 g/dl (6.4-8.2)
[2020-12-19 23:13] LABS: ANISOCYTOSIS 2+; MACROCYTOSIS 0; PLATELET ESTIMATE DECREASED
[2020-12-20 02:42] LABS: INR 1.03 (0.83-1.09); PROTHROMBIN TIME (PATIENT) 12.7 SEC (9.7-13.0)
[2020-12-20 02:44] LABS: ACTIVATED PTT 34.7 SECONDS (25.2-36.5)
[2020-12-20 02:51] LABS: BASO % 1.1 % (0-2.0); EOS % 1.4 % (0-4.5); HEMATOCRIT 21.1 % (35.4-49); LYMPH % 12.7 % (8-40); MCHC 32.4 g/dl (32.0-35.9); MEAN CELL VOLUME 77.1 fl (80-96); MEAN PLT VOLUME 9.7 fl (7.5-11.1); MONO % 4.5 % (3.8-10.2); NEUT % 80.3 % (42.8-82.8); PLATELET COUNT 123 10^3/uL (134-434); RBC 2.74 M/mm3 (4.00-5.60); RDW 20.5 % (11.9-15.9); WHITE BLOOD COUNT 7.3 K/mm3 (4.0-10.0)
[2020-12-20 02:56] LABS: HEMOGLOBIN 6.8 GM/dL (11.7-16.9)
[2020-12-20] MEDS ORDERED: ONDANSETRON 4 MG/2 ML VIAL IVPUSH PRN (05:25)
[2020-12-20] MEDS ORDERED: FUROSEMIDE 40 MG/4 ML INJECTABLE VIAL IVPUSH ONE ×2 (05:28→16:12)
[2020-12-20] MEDS ORDERED: HEPARIN NA (PORCINE) 5,000 UNITS/ML 1ML VIAL ONE ×2 (06:02→13:02)
[2020-12-20] MEDS ORDERED: FUROSEMIDE 40 MG/4 ML INJECTABLE VIAL ONE (06:03)
[2020-12-20] MEDS: HEPARIN NA (PORCINE) 5,000 UNITS/ML 1ML VIAL SQ SCH ×3 (06:11→22:12)
[2020-12-20] MEDS: SODIUM BICARBONATE 650 MG TABLET PO SCH ×3 (06:34→22:15)
[2020-12-20 07:06] LABS: CALCIUM 7.9 mg/dL (8.5-10.1)
[2020-12-20 07:07] LABS: ALBUMIN 3.2 g/dl (3.4-5.0); BLOOD UREA NITROGEN 53.8 mg/dL (7-18)
[2020-12-20 07:10] LABS: CREATININE 5.1 mg/dL (0.55-1.3)
[2020-12-20 07:12] LABS: BILIRUBIN,TOTAL 0.4 mg/dL (0.2-1); TOT PROT 6.4 g/dl (6.4-8.2)
[2020-12-20] MEDS ORDERED: ASPIRIN COATED 81 MG TABLET.EC ONE (08:55)
[2020-12-20] MEDS: hydrALAZINE HCL 50 MG TABLET (FP) PO SCH ×2 (09:14→22:15)
[2020-12-20] MEDS: FERROUS GLUCONATE 324 MG TAB (FP) PO SCH ×2 (09:14→22:15)
[2020-12-20] MEDS: amLODIPine BESYLATE 10 MG TABLET (FP) PO SCH (09:14)
[2020-12-20] MEDS: ASPIRIN COATED 81 MG TABLET.EC PO SCH (09:14)
[2020-12-20] MEDS: LABETALOL HCL 200 MG TABLET (FP) PO SCH ×2 (09:14→22:15)
[2020-12-20] MEDS: INSULIN SLIDING SCALE (NOVOLOG) 1 VIAL SQ SCH ×4 (09:15→22:11)
[2020-12-20 09:55] LABS: N-TERMINAL BNP 4595.6 pg/ml (5-125)
[2020-12-20] MEDS ORDERED: PATIENT'S OWN MEDICATION (NON-FORMULARY) (Icosapent Ethyl [Vascepa] 1 GM Capsule) PO SCH (10:00)
[2020-12-20] MEDS ORDERED: ONDANSETRON 4 MG/2 ML VIAL ONE (10:09)
[2020-12-20 21:02] LABS: HEMATOCRIT 25.1 % (35.4-49); HEMOGLOBIN 8.3 GM/dL (11.7-16.9); MCH 26.2 pg (25.7-33.7); MCHC 33.1 g/dl (32.0-35.9); PLATELET COUNT 128 10^3/uL (134-434); RBC 3.18 M/mm3 (4.00-5.60); RDW 21.1 % (11.9-15.9); WHITE BLOOD COUNT 7.1 K/mm3 (4.0-10.0)
[2020-12-20] MEDS: ATORVASTATIN CA 40 MG TABLET (FP) PO SCH (22:15)
[2020-12-21] MEDS ORDERED: FUROSEMIDE 40 MG/4 ML INJECTABLE VIAL IVPUSH SCH ×2 (06:00→10:00)
[2020-12-21] MEDS: INSULIN SLIDING SCALE (NOVOLOG) 1 VIAL SQ SCH ×4 (06:44→22:27)
[2020-12-21] MEDS: HEPARIN NA (PORCINE) 5,000 UNITS/ML 1ML VIAL SQ SCH ×3 (06:44→22:27)
[2020-12-21] MEDS: SODIUM BICARBONATE 650 MG TABLET PO SCH ×3 (06:44→22:28)
[2020-12-21 08:10] LABS: BASO % 0.5 % (0-2.0); EOS % 1.2 % (0-4.5); HEMATOCRIT 26.2 % (35.4-49); HEMOGLOBIN 8.4 GM/dL (11.7-16.9); MCH 25.8 pg (25.7-33.7); MCHC 32.2 g/dl (32.0-35.9); MEAN PLT VOLUME 10.2 fl (7.5-11.1); MONO % 6.7 % (3.8-10.2); NEUT % 77.6 % (42.8-82.8); PLATELET COUNT 132 10^3/uL (134-434); RBC 3.27 M/mm3 (4.00-5.60); RDW 20.8 % (11.9-15.9); WHITE BLOOD COUNT 7.7 K/mm3 (4.0-10.0)
[2020-12-21 08:19] LABS: ALBUMIN 3.2 g/dl (3.4-5.0); CALCIUM 8.2 mg/dL (8.5-10.1)
[2020-12-21 08:22] LABS: CREATININE 5.5 mg/dL (0.55-1.3)
[2020-12-21 08:23] LABS: BILIRUBIN,TOTAL 0.5 mg/dL (0.2-1); TOT PROT 6.6 g/dl (6.4-8.2)
[2020-12-21] MEDS: hydrALAZINE HCL 50 MG TABLET (FP) PO SCH ×2 (09:26→22:27)
[2020-12-21] MEDS: ASPIRIN COATED 81 MG TABLET.EC PO SCH (09:27)
[2020-12-21] MEDS: FERROUS GLUCONATE 324 MG TAB (FP) PO SCH ×2 (09:27→22:27)
[2020-12-21] MEDS: LABETALOL HCL 200 MG TABLET (FP) PO SCH ×2 (09:28→22:27)
[2020-12-21] MEDS: amLODIPine BESYLATE 10 MG TABLET (FP) PO SCH (09:29)
[2020-12-21] MEDS: FUROSEMIDE 40 MG TABLET (FP) PO SCH (14:31)
[2020-12-21] MEDS: ATORVASTATIN CA 40 MG TABLET (FP) PO SCH (22:27)
[2020-12-22] MEDS: HEPARIN NA (PORCINE) 5,000 UNITS/ML 1ML VIAL SQ SCH (06:41)
[2020-12-22] MEDS: SODIUM BICARBONATE 650 MG TABLET PO SCH ×2 (06:41→13:16)
[2020-12-22] MEDS: FUROSEMIDE 40 MG TABLET (FP) PO SCH ×2 (06:41→13:16)
[2020-12-22] MEDS: INSULIN SLIDING SCALE (NOVOLOG) 1 VIAL SQ SCH ×2 (06:41→11:56)
[2020-12-22] MEDS: hydrALAZINE HCL 50 MG TABLET (FP) PO SCH (09:30)
[2020-12-22] MEDS: ASPIRIN COATED 81 MG TABLET.EC PO SCH (09:31)
[2020-12-22] MEDS: FERROUS GLUCONATE 324 MG TAB (FP) PO SCH (09:31)
[2020-12-22] MEDS: LABETALOL HCL 200 MG TABLET (FP) PO SCH (09:31)
[2020-12-22] MEDS: amLODIPine BESYLATE 10 MG TABLET (FP) PO SCH (09:31)
[2020-12-22 13:23] VITALS: BP 140/72; PULSE 78; TEMP 98.1
== END 2020-12-22 14:30 | disposition home or self-care (01) | DRG 683 ==
LOC: JER 21:27 → JERBED 12-20 04:34 → J4W 12-20 17:31
PROVIDERS: ADMIT Hospitalist; ATTEND Nurse Practitioner Family
DX: I12.9 Hypertensive chronic kidney disease with stage 1 through stage 4 chronic kidney disease, or unspecified chronic kidney disease (principal); N13.30 Unspecified hydronephrosis; N18.4 Chronic kidney disease, stage 4 (severe); N17.9 Acute kidney failure, unspecified; I25.10 Atherosclerotic heart disease of native coronary artery without angina pectoris; R06.02 Shortness of breath; I10 Essential (primary) hypertension; E11.9 Type 2 diabetes mellitus without complications; I25.2 Old myocardial infarction; D63.1 Anemia in chronic kidney disease; E03.9 Hypothyroidism, unspecified; R31.9 Hematuria, unspecified; N40.0 Benign prostatic hyperplasia without lower urinary tract symptoms; K21.9 Gastro-esophageal reflux disease without esophagitis; E11.22 Type 2 diabetes mellitus with diabetic chronic kidney disease; Z85.46 Personal history of malignant neoplasm of prostate; Z95.5 Presence of coronary angioplasty implant and graft; Z90.5 Acquired absence of kidney; Z86.73 Personal history of transient ischemic attack (TIA), and cerebral infarction without residual deficits
CPT/HCPCS: 36415; 36430; 71045-TC-FY; 80053; 82272; 82728; 82962; 83540; 83550; 83735; 83880; 84100; 84484; 85025; 85027; 85610; 85730; 86850; 86900; 86901; 86922; 93005; 93010; 93306-TC; 97116-GP; 97161-GP; 99285-25; C9803; J0131; J1644; P9058; U0003; U0005

== ENCOUNTER 2021-01-01 17:31 | Observation (INO) | payer MEDICARE, OTHER ==
[2021-01-01 17:47] VITALS: BMI 29.5
[2021-01-01] MEDS ORDERED: LIDOCAINE 5% TOPICAL PATCH TP ONE (19:25)
[2021-01-01] MEDS ORDERED: MAG HYDROX/AL HYDROX/SIMETH 30 ML UNIT-DOSE CUP PO ONE (19:25)
[2021-01-01] MEDS ORDERED: METHOCARBAMOL 500 MG TABLET PO ONE (19:25)
[2021-01-01] MEDS ORDERED: LIDOCAINE 5% TOPICAL PATCH ONE (19:59)
[2021-01-01] MEDS ORDERED: MAG HYDROX/AL HYDROX/SIMETH 30 ML UNIT-DOSE CUP ONE (19:59)
[2021-01-01] MEDS ORDERED: METHOCARBAMOL 500 MG TABLET ONE (19:59)
[2021-01-01 20:54] LABS: BASO % 1.1 % (0-2.0); EOS % 4.6 % (0-4.5); HEMATOCRIT 27.6 % (35.4-49); HEMOGLOBIN 8.9 GM/dL (11.7-16.9); LYMPH % 21.9 % (8-40); MCH 25.7 pg (25.7-33.7); MCHC 32.2 g/dl (32.0-35.9); MEAN CELL VOLUME 79.9 fl (80-96); MEAN PLT VOLUME 9.9 fl (7.5-11.1); MONO % 7.8 % (3.8-10.2); NEUT % 64.6 % (42.8-82.8); PLATELET COUNT 161 10^3/uL (134-434); RBC 3.46 M/mm3 (4.00-5.60); RDW 19.4 % (11.9-15.9); WHITE BLOOD COUNT 7.3 K/mm3 (4.0-10.0)
[2021-01-01 21:21] LABS: ALBUMIN 3.3 g/dl (3.4-5.0); BLOOD UREA NITROGEN 73.9 mg/dL (7-18); CALCIUM 8.2 mg/dL (8.5-10.1)
[2021-01-01 21:24] LABS: CREATININE 6.2 mg/dL (0.55-1.3)
[2021-01-01 21:26] LABS: BILIRUBIN,TOTAL 0.4 mg/dL (0.2-1); TOT PROT 6.7 g/dl (6.4-8.2)
[2021-01-01] MEDS ORDERED: LIDOCAINE PATCH REMOVAL MC SCH (22:00)
[2021-01-02] MEDS ORDERED: PATIENT'S OWN MEDICATION (NON-FORMULARY) (Icosapent Ethyl [Vascepa] 1 GM Capsule) PO SCH (07:00)
[2021-01-02] MEDS ORDERED: FUROSEMIDE 40 MG TABLET (FP) ONE (09:19)
[2021-01-02] MEDS: FUROSEMIDE 40 MG TABLET (FP) PO SCH ×2 (09:26→14:01)
[2021-01-02] MEDS: INSULIN SLIDING SCALE (NOVOLOG) 1 VIAL SQ SCH ×2 (09:27→12:49)
[2021-01-02] MEDS ORDERED: hydrALAZINE HCL 50 MG TABLET (FP) PO SCH (10:00)
[2021-01-02] MEDS ORDERED: ASPIRIN COATED 81 MG TABLET.EC PO SCH (10:00)
[2021-01-02] MEDS ORDERED: PATIENT'S OWN MEDICATION (NON-FORMULARY) (Hydralazine Hcl [Hydralazine Hcl] 100 MG Tablet) PO SCH (10:00)
[2021-01-02] MEDS ORDERED: amLODIPine BESYLATE 10 MG TABLET (FP) PO SCH ×2 (10:00)
[2021-01-02 11:43] LABS: BASO % 0.9 % (0-2.0); EOS % 5.1 % (0-4.5); HEMATOCRIT 28.1 % (35.4-49); HEMOGLOBIN 9.3 GM/dL (11.7-16.9); MCH 26.2 pg (25.7-33.7); MCHC 33.1 g/dl (32.0-35.9); MEAN CELL VOLUME 79.3 fl (80-96); MEAN PLT VOLUME 10.1 fl (7.5-11.1); MONO % 6.6 % (3.8-10.2); NEUT % 69.4 % (42.8-82.8); PLATELET COUNT 172 10^3/uL (134-434); RBC 3.54 M/mm3 (4.00-5.60); RDW 19.7 % (11.9-15.9); WHITE BLOOD COUNT 7.3 K/mm3 (4.0-10.0)
[2021-01-02 12:08] LABS: ALBUMIN 3.3 g/dl (3.4-5.0); BLOOD UREA NITROGEN 68.6 mg/dL (7-18); CALCIUM 8.2 mg/dL (8.5-10.1)
[2021-01-02 12:09] LABS: MAGNESIUM 2.6 mg/dL (1.8-2.4)
[2021-01-02 12:11] LABS: CREATININE 5.9 mg/dL (0.55-1.3)
[2021-01-02 12:12] LABS: PHOSPHOROUS 4.8 mg/dL (2.5-4.9)
[2021-01-02 12:13] LABS: BILIRUBIN,TOTAL 0.3 mg/dL (0.2-1); TOT PROT 6.6 g/dl (6.4-8.2)
[2021-01-02] MEDS ORDERED: PT OWN MED DRAWER 7, Y5N ONE (12:35)
[2021-01-02] MEDS: LABETALOL HCL 100 MG, LABETALOL HCL 200 MG PO SCH ×2 (13:47→14:03)
[2021-01-02] MEDS ORDERED: HEPARIN NA (PORCINE) 5,000 UNITS/ML 1ML VIAL SQ SCH (14:00)
[2021-01-02 14:32] VITALS: BP 150/79; PULSE 85; TEMP 98.3
[2021-01-02] MEDS ORDERED: ATORVASTATIN CA 40 MG TABLET (FP) PO SCH (22:00)
== END 2021-01-02 16:22 | disposition home or self-care (01) ==
LOC: JER 17:31 → UNDOADMOB 23:31 → JERBED 23:31 → INTOOBSV 23:31 → J6S 01-02 10:28 → JERBED 01-02 10:28 → J6S 01-02 15:31 → JERBED 01-02 15:31
PROVIDERS: ADMIT Hospitalist; ATTEND Student in an Organized Health Care Education/Training Program
PROC: 3E013VG Introduction of Insulin into Subcutaneous Tissue, Percutaneous Approach (ICD-10-PCS; principal; 2021-01-02)
DX: Z88.8 Allergy status to other drugs, medicaments and biological substances (principal); N17.9 Acute kidney failure, unspecified; I11.9 Hypertensive heart disease without heart failure; M54.2 Cervicalgia; R20.2 Paresthesia of skin; I44.0 Atrioventricular block, first degree; I25.10 Atherosclerotic heart disease of native coronary artery without angina pectoris; E11.9 Type 2 diabetes mellitus without complications; D64.9 Anemia, unspecified; Z90.5 Acquired absence of kidney; R31.9 Hematuria, unspecified; K21.9 Gastro-esophageal reflux disease without esophagitis; Z95.5 Presence of coronary angioplasty implant and graft; E78.00 Pure hypercholesterolemia, unspecified; I10 Essential (primary) hypertension; N13.30 Unspecified hydronephrosis; I25.2 Old myocardial infarction; Z85.46 Personal history of malignant neoplasm of prostate; Z87.891 Personal history of nicotine dependence
CPT/HCPCS: 36415; 71045-TC-FY; 72125-TC; 80053; 82550; 82553; 82962; 83690; 83735; 84100; 84484; 85025; 93005; 93010; 96372; 99285-25; C9803; G0378; J1644; U0003; U0005

== ENCOUNTER 2021-02-04 05:00 | Day surgery (SDC) | payer MEDICARE, OTHER ==
[2021-02-03 11:21] VITALS: BMI 29.8
[2021-02-04 09:26] LABS: BASO % 0.1 % (0-2.0); EOS % 6.3 % (0-4.5); HEMATOCRIT 25.4 % (35.4-49); HEMOGLOBIN 8.2 GM/dL (11.7-16.9); LYMPH % 13.1 % (8-40); MCH 26.7 pg (25.7-33.7); MCHC 32.4 g/dl (32.0-35.9); MEAN CELL VOLUME 82.6 fl (80-96); MEAN PLT VOLUME 11.9 fl (7.5-11.1); MONO % 8.2 % (3.8-10.2); NEUT % 72.3 % (42.8-82.8); PLATELET COUNT 92 10^3/uL (134-434); RBC 3.08 M/mm3 (4.00-5.60); RDW 18.3 % (11.9-15.9); WHITE BLOOD COUNT 9.7 K/mm3 (4.0-10.0)
[2021-02-04 09:32] LABS: INR 0.93 (0.83-1.09); PROTHROMBIN TIME (PATIENT) 11.5 SEC (9.7-13.0)
[2021-02-04] MEDS ORDERED: ONDANSETRON 4 MG/2 ML VIAL ONE (12:49)
[2021-02-04] MEDS ORDERED: ONDANSETRON 4 MG/2 ML VIAL IVPUSH ONE ×2 (12:56)
[2021-02-04 14:44] VITALS: BP 175/92; PULSE 74; TEMP 97.9
== END 2021-02-04 14:03 | disposition home or self-care (01) ==
LOC: JRADIR 05:00
PROVIDERS: ATTEND Urology
PROC: 0T25X0Z Change Drainage Device in Kidney, External Approach (ICD-10-PCS; principal; 2021-02-04)
DX: N13.5 Crossing vessel and stricture of ureter without hydronephrosis (principal)
CPT/HCPCS: 36415; 50435; 82962; 84132; 85025; 85610

== ENCOUNTER 2021-04-29 11:59 | Emergency (ER) | payer MEDICARE, OTHER ==
[2021-04-29 12:21] VITALS: BP 141/67; PULSE 83; TEMP 98.4; BMI 33.8
== END 2021-04-29 15:15 | disposition home or self-care (01) ==
LOC: JER 11:59
DX: T83.092A Other mechanical complication of nephrostomy catheter, initial encounter (principal)
CPT/HCPCS: 99283-25; 99284-25

== ENCOUNTER 2021-06-10 05:22 | Day surgery (SDC) | payer MEDICARE, OTHER ==
[2021-06-08 17:23] VITALS: BMI 31.1
[2021-06-10 16:50] VITALS: BP 148/74; PULSE 83; TEMP 97.7
== END 2021-06-10 16:30 | disposition home or self-care (01) ==
LOC: JRADIR 05:22
PROVIDERS: ATTEND Urology
PROC: 0T9B30Z Drainage of Bladder with Drainage Device, Percutaneous Approach (ICD-10-PCS; principal; 2021-06-10)
PROC: BT40ZZZ Ultrasonography of Bladder (ICD-10-PCS; 2021-06-10)
DX: N31.9 Neuromuscular dysfunction of bladder, unspecified (principal)
CPT/HCPCS: 51102; 82962; 87086; 87186

== ENCOUNTER 2021-06-25 11:23 | Inpatient (IN) | payer MEDICARE, OTHER ==
[2021-06-25 14:22] LABS: BASO % 0.8 % (0-2.0); EOS % 1.1 % (0-4.5); HEMATOCRIT 30.2 % (35.4-49); HEMOGLOBIN 9.8 GM/dL (11.7-16.9); LYMPH % 14.3 % (8-40); MCH 27.4 pg (25.7-33.7); MCHC 32.5 g/dl (32.0-35.9); MEAN CELL VOLUME 84.3 fl (80-96); MEAN PLT VOLUME 10.1 fl (7.5-11.1); MONO % 7.9 % (3.8-10.2); NEUT % 75.9 % (42.8-82.8); PLATELET COUNT 143 10^3/uL (134-434); RBC 3.58 M/mm3 (4.00-5.60); WHITE BLOOD COUNT 8.6 K/mm3 (4.0-10.0)
[2021-06-25 14:30] LABS: INR 1.01 (0.83-1.09); PROTHROMBIN TIME (PATIENT) 11.8 SEC (9.7-13.0)
[2021-06-25 14:33] LABS: ACTIVATED PTT 42.8 SECONDS (25.2-36.5)
[2021-06-25 14:43] LABS: CHLORIDE 101 mmol/L (98-107); SODIUM 135 mmol/L (136-145)
[2021-06-25 14:44] LABS: BLOOD UREA NITROGEN 37.8 mg/dL (7-18); CALCIUM 8.3 mg/dL (8.5-10.1)
[2021-06-25 14:46] LABS: ALBUMIN 3.2 g/dl (3.4-5.0); ANION GAP 9 MMOL/L (8-16); CO2 25 mmol/L (21-32); GLUCOSE,RANDOM 209 mg/dL (74-106)
[2021-06-25 14:49] LABS: BILIRUBIN,TOTAL 0.3 mg/dL (0.2-1); CREATININE 4.9 mg/dL (0.55-1.3); SGOT/AST 20 U/L (15-37); SGPT/ALT 34 U/L (13-61); TOT PROT 7.2 g/dl (6.4-8.2)
[2021-06-25 14:51] LABS: ALK PHOS 131 U/L (45-117)
[2021-06-25 15:02] LABS: EPI CELLS >36 /uL (0-25.1); HYALINE CASTS 5 /uL (0-3.1); PH,URINE >= 9.0 (5.0-8.0); URINE APPEARANCE TURBID; URINE BACTERIA 7224 /uL (0-1359); URINE BILIRUBIN NEGATIVE (NEGATIVE); URINE COLOR YELLOW; URINE GLUCOSE (UA) NEGATIVE (NEGATIVE); URINE KETONE NEGATIVE (NEGATIVE); URINE LEUK ESTERASE 3+ (NEGATIVE); URINE NITRITE NEGATIVE (NEGATIVE); URINE PROTEIN 3+ (NEGATIVE); URINE RBC 42 /uL (0-23.9); URINE UROBILINOGEN 0.2 mg/dL (0.2-1.0); URINE WBC 853 /uL (0-25.8)
[2021-06-25] MEDS ORDERED: PIPERACILLIN/TAZOB 2.25 GM 2.25 GM in DEXTROSE 5%-WATER - 50 ML IVPB ONE (16:00)
[2021-06-25] MEDS ORDERED: VANCOMYCIN 1 GM in D5W (PRE-DOCKED) 1,000 MG/250 ML IVPB ONE (16:00)
[2021-06-25] MEDS ORDERED: PIPERACILLIN/TAZOB 2.25 GM 2.25 GM/50 ML BAG IVPB ONE (18:10)
[2021-06-25] MEDS ORDERED: VANCOMYCIN 1 GRAM (PRE-DOCKED) 1,000 MG/250 ML BAG IVPB ONE (19:22)
[2021-06-25] MEDS: CEFTRIAXONE 1 GM in DEXTROSE 5%-WATER - 50 ML IVPB SCH (19:44)
[2021-06-25] MEDS: GABAPENTIN 300 MG CAPSULE PO SCH (23:09)
[2021-06-25] MEDS: ATORVASTATIN CA 40 MG TABLET (FP) PO SCH (23:09)
[2021-06-25] MEDS: LABETALOL HCL 200 MG TABLET (FP) PO SCH (23:09)
[2021-06-25] MEDS: INSULIN SLIDING SCALE (NOVOLOG) 1 VIAL SQ SCH (23:10)
[2021-06-26 01:03] VITALS: BMI 31.7
[2021-06-26] MEDS: FUROSEMIDE 40 MG TABLET (FP) PO SCH ×2 (07:29→16:35)
[2021-06-26] MEDS: LABETALOL HCL 200 MG TABLET (FP) PO SCH ×3 (07:30→21:27)
[2021-06-26] MEDS: INSULIN SLIDING SCALE (NOVOLOG) 1 VIAL SQ SCH ×4 (07:31→21:26)
[2021-06-26] MEDS ORDERED: PATIENT'S OWN MEDICATION (NON-FORMULARY) (Omeprazole 20 MG Capsule.Dr) PO SCH (10:00)
[2021-06-26] MEDS ORDERED: ASPIRIN 81 MG CHEWABLE TABLETS PO SCH (10:00)
[2021-06-26] MEDS ORDERED: DEXTROSE 5%-WATER - 50 ML IVPB ONE (11:02)
[2021-06-26] MEDS ORDERED: cefTRIAXone SODIUM 1 GM VIAL ONE (11:02)
[2021-06-26 11:13] LABS: HEMATOCRIT 30.9 % (35.4-49); HEMOGLOBIN 9.7 GM/dL (11.7-16.9); LYMPH % 25.6 % (8-40); MCH 26.7 pg (25.7-33.7); MCHC 31.5 g/dl (32.0-35.9); MEAN CELL VOLUME 84.9 fl (80-96); MEAN PLT VOLUME 10.5 fl (7.5-11.1); MONO % 9.2 % (3.8-10.2); NEUT % 60.2 % (42.8-82.8); PLATELET COUNT 142 10^3/uL (134-434); RBC 3.64 M/mm3 (4.00-5.60); RDW 16.9 % (11.9-15.9); WHITE BLOOD COUNT 5.4 K/mm3 (4.0-10.0)
[2021-06-26] MEDS: CEFTRIAXONE 1 GM in DEXTROSE 5%-WATER - 50 ML IVPB SCH (11:14)
[2021-06-26] MEDS ORDERED: MEROPENEM 500 MG in DEXTROSE 5%-WATER 100 ML IVPB SCH (11:15)
[2021-06-26] MEDS: amLODIPine BESYLATE 10 MG TABLET (FP) PO SCH ×2 (11:18→16:34)
[2021-06-26] MEDS: PANTOPRAZOLE 20 MG TABLET PO SCH (11:18)
[2021-06-26] MEDS: GABAPENTIN 300 MG CAPSULE PO SCH ×2 (11:18→21:27)
[2021-06-26 11:33] LABS: CALCIUM 7.9 mg/dL (8.5-10.1)
[2021-06-26 11:35] LABS: ALBUMIN 2.9 g/dl (3.4-5.0); BLOOD UREA NITROGEN 47.6 mg/dL (7-18); MAGNESIUM 2.4 mg/dL (1.8-2.4)
[2021-06-26 11:38] LABS: BILIRUBIN,TOTAL 0.4 mg/dL (0.2-1); CREATININE 6.1 mg/dL (0.55-1.3); PHOSPHOROUS 7.2 mg/dL (2.5-4.9); TOT PROT 7.1 g/dl (6.4-8.2)
[2021-06-26] MEDS ORDERED: MEROPENEM 500 MG VIAL (RESTRICTED TO ID) IVPB ONE ×2 (12:36→17:39)
[2021-06-26] MEDS ORDERED: DEXTROSE 5%-WATER 100 ML IVPB ONE ×2 (12:36→17:40)
[2021-06-26] MEDS ORDERED: EPOETIN ALFA-EPBX 4,000 UNIT/ML VIAL SQ ONE (14:00)
[2021-06-26] MEDS ORDERED: SODIUM CHLORIDE 250 ML IV PRN (14:01)
[2021-06-26] MEDS: MEROPENEM 500 MG in DEXTROSE 5%-WATER 100 ML IVPB SCH ×2 (15:51→18:48)
[2021-06-26] MEDS: ATORVASTATIN CA 40 MG TABLET (FP) PO SCH (21:27)
[2021-06-27] MEDS ORDERED: DEXTROSE 5%-WATER 100 ML IVPB ONE ×3 (00:21→17:12)
[2021-06-27] MEDS ORDERED: MEROPENEM 500 MG VIAL (RESTRICTED TO ID) IVPB ONE ×3 (00:21→17:12)
[2021-06-27] MEDS: MEROPENEM 500 MG in DEXTROSE 5%-WATER 100 ML IVPB SCH ×3 (01:33→17:17)
[2021-06-27] MEDS: LABETALOL HCL 200 MG TABLET (FP) PO SCH ×3 (05:56→20:59)
[2021-06-27] MEDS: FUROSEMIDE 40 MG TABLET (FP) PO SCH ×2 (05:56→14:33)
[2021-06-27] MEDS: INSULIN SLIDING SCALE (NOVOLOG) 1 VIAL SQ SCH ×5 (06:21→21:00)
[2021-06-27] MEDS: GABAPENTIN 300 MG CAPSULE PO SCH ×2 (10:26→21:00)
[2021-06-27] MEDS: PANTOPRAZOLE 20 MG TABLET PO SCH (10:26)
[2021-06-27] MEDS: amLODIPine BESYLATE 10 MG TABLET (FP) PO SCH (10:26)
[2021-06-27 10:31] LABS: HEMOGLOBIN 9.9 GM/dL (11.7-16.9); MCH 26.8 pg (25.7-33.7); MCHC 31.9 g/dl (32.0-35.9); MEAN PLT VOLUME 10.9 fl (7.5-11.1); PLATELET COUNT 147 10^3/uL (134-434); RBC 3.69 M/mm3 (4.00-5.60); RDW 16.7 % (11.9-15.9)
[2021-06-27 10:49] LABS: BLOOD UREA NITROGEN 45.3 mg/dL (7-18)
[2021-06-27 10:52] LABS: CREATININE 6.1 mg/dL (0.55-1.3); PHOSPHOROUS 5.8 mg/dL (2.5-4.9)
[2021-06-27] MEDS: ATORVASTATIN CA 40 MG TABLET (FP) PO SCH (20:59)
[2021-06-28] MEDS ORDERED: MEROPENEM 500 MG VIAL (RESTRICTED TO ID) IVPB ONE ×3 (00:56→16:41)
[2021-06-28] MEDS ORDERED: DEXTROSE 5%-WATER 100 ML IVPB ONE ×3 (00:56→16:42)
[2021-06-28] MEDS: MEROPENEM 500 MG in DEXTROSE 5%-WATER 100 ML IVPB SCH ×3 (01:41→17:22)
[2021-06-28] MEDS: FUROSEMIDE 40 MG TABLET (FP) PO SCH ×2 (06:27→14:48)
[2021-06-28] MEDS: INSULIN SLIDING SCALE (NOVOLOG) 1 VIAL SQ SCH ×4 (06:27→21:11)
[2021-06-28] MEDS: LABETALOL HCL 200 MG TABLET (FP) PO SCH ×3 (06:27→21:02)
[2021-06-28] MEDS: GABAPENTIN 300 MG CAPSULE PO SCH ×2 (10:35→21:02)
[2021-06-28] MEDS: amLODIPine BESYLATE 10 MG TABLET (FP) PO SCH (10:37)
[2021-06-28] MEDS: PANTOPRAZOLE 20 MG TABLET PO SCH (10:37)
[2021-06-28] MEDS ORDERED: ACETAMINOPHEN 325 MG TABLET (FP) PO PRN (11:28)
[2021-06-28] MEDS ORDERED: SODIUM CHLORIDE 250 ML IV PRN (14:37)
[2021-06-28] MEDS: ATORVASTATIN CA 40 MG TABLET (FP) PO SCH (21:02)
[2021-06-29] MEDS ORDERED: DEXTROSE 5%-WATER 100 ML IVPB ONE ×2 (02:23→09:18)
[2021-06-29] MEDS ORDERED: MEROPENEM 500 MG VIAL (RESTRICTED TO ID) IVPB ONE ×2 (02:23→09:17)
[2021-06-29] MEDS: MEROPENEM 500 MG in DEXTROSE 5%-WATER 100 ML IVPB SCH ×2 (02:39→09:51)
[2021-06-29] MEDS: FUROSEMIDE 40 MG TABLET (FP) PO SCH ×2 (05:52→13:55)
[2021-06-29] MEDS: LABETALOL HCL 200 MG TABLET (FP) PO SCH ×3 (05:52→21:30)
[2021-06-29] MEDS: INSULIN SLIDING SCALE (NOVOLOG) 1 VIAL SQ SCH ×4 (06:17→21:30)
[2021-06-29] MEDS ORDERED: PT OWN MED DRAWER 7, Y5N ONE ×3 (09:18→13:46)
[2021-06-29] MEDS: GABAPENTIN 300 MG CAPSULE PO SCH ×3 (09:51→21:30)
[2021-06-29] MEDS: PANTOPRAZOLE 20 MG TABLET PO SCH ×2 (09:51→13:55)
[2021-06-29] MEDS: amLODIPine BESYLATE 10 MG TABLET (FP) PO SCH ×2 (09:51→13:55)
[2021-06-29] MEDS ORDERED: EPOETIN ALFA-EPBX 3,000 UNIT/ML VIAL IVPUSH ONE (11:00)
[2021-06-29 11:19] LABS: HEMATOCRIT 27.3 % (35.4-49); HEMOGLOBIN 8.9 GM/dL (11.7-16.9); MCHC 32.6 g/dl (32.0-35.9); MEAN CELL VOLUME 82.8 fl (80-96); MEAN PLT VOLUME 11.2 fl (7.5-11.1); PLATELET COUNT 134 10^3/uL (134-434); RBC 3.29 M/mm3 (4.00-5.60); RDW 15.9 % (11.9-15.9)
[2021-06-29 11:32] LABS: CHLORIDE 92 mmol/L (98-107); SODIUM 127 mmol/L (136-145)
[2021-06-29 11:42] LABS: CALCIUM 7.5 mg/dL (8.5-10.1)
[2021-06-29 11:43] LABS: ANION GAP 16 MMOL/L (8-16); CO2 19 mmol/L (21-32); GLUCOSE,RANDOM 110 mg/dL (74-106)
[2021-06-29 11:46] LABS: CREATININE 8.5 mg/dL (0.55-1.3); PHOSPHOROUS 8.9 mg/dL (2.5-4.9)
[2021-06-29] MEDS ORDERED: DEXTROSE 5%-WATER - 50 ML IVPB ONE (17:31)
[2021-06-29] MEDS ORDERED: PIPERACILLIN/TAZOBACTAM 2.25 GM VIAL IVPB ONE (17:31)
[2021-06-29] MEDS: PIPERACILLIN/TAZOB 2.25 GM 2.25 GM in DEXTROSE 5%-WATER - 50 ML IVPB SCH (17:39)
[2021-06-29] MEDS: HEPARIN NA (PORCINE) 5,000 UNITS/ML 1ML VIAL SQ SCH (21:30)
[2021-06-29] MEDS: ATORVASTATIN CA 40 MG TABLET (FP) PO SCH (21:30)
[2021-06-30] MEDS ORDERED: DEXTROSE 5%-WATER - 50 ML IVPB ONE ×3 (01:53→16:54)
[2021-06-30] MEDS ORDERED: PIPERACILLIN/TAZOBACTAM 2.25 GM VIAL IVPB ONE ×3 (01:53→16:54)
[2021-06-30] MEDS: PIPERACILLIN/TAZOB 2.25 GM 2.25 GM in DEXTROSE 5%-WATER - 50 ML IVPB SCH ×3 (02:09→17:00)
[2021-06-30] MEDS: HEPARIN NA (PORCINE) 5,000 UNITS/ML 1ML VIAL SQ SCH ×3 (06:14→21:15)
[2021-06-30] MEDS: FUROSEMIDE 40 MG TABLET (FP) PO SCH ×2 (06:15→15:27)
[2021-06-30] MEDS: LABETALOL HCL 200 MG TABLET (FP) PO SCH ×3 (06:15→21:17)
[2021-06-30] MEDS: INSULIN SLIDING SCALE (NOVOLOG) 1 VIAL SQ SCH ×5 (06:15→21:16)
[2021-06-30] MEDS: GABAPENTIN 300 MG CAPSULE PO SCH ×2 (09:19→21:17)
[2021-06-30] MEDS: amLODIPine BESYLATE 10 MG TABLET (FP) PO SCH (09:19)
[2021-06-30] MEDS: PANTOPRAZOLE 20 MG TABLET PO SCH (09:19)
[2021-06-30] MEDS ORDERED: INSULIN SLIDING SCALE (NOVOLOG) 1 VIAL SQ ONE (11:30)
[2021-06-30 13:14] LABS: HEMATOCRIT 28.3 % (35.4-49); HEMOGLOBIN 9.2 GM/dL (11.7-16.9); MCH 26.9 pg (25.7-33.7); MCHC 32.4 g/dl (32.0-35.9); MEAN PLT VOLUME 10.8 fl (7.5-11.1); PLATELET COUNT 127 10^3/uL (134-434); RBC 3.41 M/mm3 (4.00-5.60); RDW 16.5 % (11.9-15.9); WHITE BLOOD COUNT 6.6 K/mm3 (4.0-10.0)
[2021-06-30 13:38] LABS: CALCIUM 7.8 mg/dL (8.5-10.1)
[2021-06-30 13:41] LABS: PHOSPHOROUS 5.8 mg/dL (2.5-4.9)
[2021-06-30 13:47] LABS: BLOOD UREA NITROGEN 36.1 mg/dL (7-18)
[2021-06-30] MEDS: ATORVASTATIN CA 40 MG TABLET (FP) PO SCH (21:17)
[2021-07-01] MEDS ORDERED: DEXTROSE 5%-WATER - 50 ML IVPB ONE ×4 (01:02→16:06)
[2021-07-01] MEDS ORDERED: PIPERACILLIN/TAZOBACTAM 2.25 GM VIAL IVPB ONE ×4 (01:02→16:06)
[2021-07-01] MEDS: PIPERACILLIN/TAZOB 2.25 GM 2.25 GM in DEXTROSE 5%-WATER - 50 ML IVPB SCH ×3 (01:10→18:14)
[2021-07-01] MEDS: INSULIN SLIDING SCALE (NOVOLOG) 1 VIAL SQ SCH ×4 (06:11→21:15)
[2021-07-01] MEDS: LABETALOL HCL 200 MG TABLET (FP) PO SCH ×3 (06:12→21:01)
[2021-07-01] MEDS: HEPARIN NA (PORCINE) 5,000 UNITS/ML 1ML VIAL SQ SCH ×3 (06:12→21:01)
[2021-07-01] MEDS: FUROSEMIDE 40 MG TABLET (FP) PO SCH ×2 (06:12→13:11)
[2021-07-01] MEDS ORDERED: SODIUM CHLORIDE 250 ML IV PRN (09:00)
[2021-07-01] MEDS ORDERED: EPOETIN ALFA-EPBX 10,000 UNIT/ML VIAL IVPUSH ONE (09:00)
[2021-07-01] MEDS ORDERED: IRON SUCROSE INJECTION 100 MG in SODIUM CHLORIDE 95 ML IVPB ONE (10:00)
[2021-07-01 11:04] LABS: HEMATOCRIT 27.9 % (35.4-49); MCH 26.9 pg (25.7-33.7); MCHC 32.2 g/dl (32.0-35.9); MEAN CELL VOLUME 83.6 fl (80-96); MEAN PLT VOLUME 10.8 fl (7.5-11.1); PLATELET COUNT 143 10^3/uL (134-434); RBC 3.34 M/mm3 (4.00-5.60); RDW 16.6 % (11.9-15.9); WHITE BLOOD COUNT 7.3 K/mm3 (4.0-10.0)
[2021-07-01 11:40] LABS: CALCIUM 8.2 mg/dL (8.5-10.1)
[2021-07-01 11:41] LABS: ALBUMIN 2.7 g/dl (3.4-5.0); BLOOD UREA NITROGEN 41.5 mg/dL (7-18)
[2021-07-01 11:45] LABS: BILIRUBIN,TOTAL 0.6 mg/dL (0.2-1); TOT PROT 6.8 g/dl (6.4-8.2)
[2021-07-01] MEDS ORDERED: INSULIN (LEVEMIR) 100 UNITS/ML UNITS SQ ONE (11:53)
[2021-07-01] MEDS: PANTOPRAZOLE 20 MG TABLET PO SCH (12:05)
[2021-07-01] MEDS: amLODIPine BESYLATE 10 MG TABLET (FP) PO SCH (12:05)
[2021-07-01] MEDS: GABAPENTIN 300 MG CAPSULE PO SCH ×2 (12:05→21:01)
[2021-07-01 19:56] LABS: EPI CELLS 34 /uL (0-25.1); HYALINE CASTS 6 /uL (0-3.1); URINE APPEARANCE CLOUDY; URINE BACTERIA 37 /uL (0-1359); URINE BILIRUBIN NEGATIVE (NEGATIVE); URINE COLOR RED; URINE GLUCOSE (UA) TRACE (NEGATIVE); URINE KETONE NEGATIVE (NEGATIVE); URINE LEUK ESTERASE 3+ (NEGATIVE); URINE NITRITE NEGATIVE (NEGATIVE); URINE PROTEIN 4+ (NEGATIVE); URINE RBC 1745 /uL (0-23.9); URINE UROBILINOGEN 0.2 mg/dL (0.2-1.0); URINE WBC 27 /uL (0-25.8)
[2021-07-01] MEDS: ATORVASTATIN CA 40 MG TABLET (FP) PO SCH (21:01)
[2021-07-02] MEDS ORDERED: DEXTROSE 5%-WATER - 50 ML IVPB ONE ×2 (00:47→10:42)
[2021-07-02] MEDS ORDERED: PIPERACILLIN/TAZOBACTAM 2.25 GM VIAL IVPB ONE ×2 (00:47→10:42)
[2021-07-02] MEDS: PIPERACILLIN/TAZOB 2.25 GM 2.25 GM in DEXTROSE 5%-WATER - 50 ML IVPB SCH ×3 (01:29→18:00)
[2021-07-02] MEDS: LABETALOL HCL 200 MG TABLET (FP) PO SCH ×2 (06:21→13:59)
[2021-07-02] MEDS: FUROSEMIDE 40 MG TABLET (FP) PO SCH ×2 (06:21→13:59)
[2021-07-02] MEDS: HEPARIN NA (PORCINE) 5,000 UNITS/ML 1ML VIAL SQ SCH ×2 (06:22→14:00)
[2021-07-02] MEDS: INSULIN SLIDING SCALE (NOVOLOG) 1 VIAL SQ SCH ×3 (06:43→17:56)
[2021-07-02] MEDS: amLODIPine BESYLATE 10 MG TABLET (FP) PO SCH (10:44)
[2021-07-02] MEDS: GABAPENTIN 300 MG CAPSULE PO SCH (10:44)
[2021-07-02] MEDS: PANTOPRAZOLE 20 MG TABLET PO SCH (10:45)
[2021-07-02 15:04] VITALS: BP 136/65; PULSE 73; TEMP 98.3
== END 2021-07-02 18:16 | disposition home or self-care (01) | DRG 698 ==
LOC: JER 11:23 → INTOOBSV 16:43 → JERBED 16:43 → UNDOADMOB 16:43 → JERBED 18:43 → J5S 21:33 → OBSVTOIN 06-26 11:01 → J5S 06-29 09:52
PROVIDERS: ADMIT Internal Medicine
PROC: 5A1D70Z Performance of Urinary Filtration, Intermittent, Less than 6 Hours Per Day (ICD-10-PCS; principal; 2021-06-26)
DX: T83.510A Infection and inflammatory reaction due to cystostomy catheter, initial encounter (principal); N18.6 End stage renal disease; U07.1 COVID-19; I12.0 Hypertensive chronic kidney disease with stage 5 chronic kidney disease or end stage renal disease; N13.30 Unspecified hydronephrosis; E87.1 Hypo-osmolality and hyponatremia; N39.0 Urinary tract infection, site not specified; I25.10 Atherosclerotic heart disease of native coronary artery without angina pectoris; E11.22 Type 2 diabetes mellitus with diabetic chronic kidney disease; Z99.2 Dependence on renal dialysis; Z85.46 Personal history of malignant neoplasm of prostate; R31.9 Hematuria, unspecified; Z79.4 Long term (current) use of insulin; F32.A Depression, unspecified; J44.9 Chronic obstructive pulmonary disease, unspecified; B95.2 Enterococcus as the cause of diseases classified elsewhere; Y84.6 Urinary catheterization as the cause of abnormal reaction of the patient, or of later complication, without mention of misadventure at the time of the procedure; D50.9 Iron deficiency anemia, unspecified; G25.3 Myoclonus; T42.6X5A Adverse effect of other antiepileptic and sedative-hypnotic drugs, initial encounter
CPT/HCPCS: 36415; 74177-TC; 80048; 80053; 81003; 82728; 82962; 83540; 83550; 83605; 83615; 83735; 84100; 84466; 84484; 85025; 85027; 85610; 85730; 86803; 86850; 86900; 86901; 87040; 87086; 87186; 87340; 93005; 93010; 99285-25; C9803-CS; G0378; J1644; J1756; Q5106; U0003; U0005

== ENCOUNTER 2021-08-24 12:12 | Inpatient (IN) | payer MEDICARE, OTHER ==
[2021-08-24 14:16] LABS: BASO % 0.6 % (0-2.0); EOS % 1.3 % (0-4.5); HEMATOCRIT 30.4 % (35.4-49); HEMOGLOBIN 9.8 GM/dL (11.7-16.9); LYMPH % 10.8 % (8-40); MCHC 32.3 g/dl (32.0-35.9); MEAN CELL VOLUME 83.5 fl (80-96); MONO % 7.8 % (3.8-10.2); NEUT % 79.5 % (42.8-82.8); PLATELET COUNT 252 10^3/uL (134-434); RBC 3.64 M/mm3 (4.00-5.60); RDW 17.9 % (11.9-15.9); WHITE BLOOD COUNT 9.9 K/mm3 (4.0-10.0)
[2021-08-24 14:28] LABS: BLOOD UREA NITROGEN 20.6 mg/dL (7-18); CALCIUM 9.3 mg/dL (8.5-10.1)
[2021-08-24 14:29] LABS: ALBUMIN 3.2 g/dl (3.4-5.0)
[2021-08-24 14:32] LABS: CREATININE 2.9 mg/dL (0.55-1.3)
[2021-08-24 14:33] LABS: BILIRUBIN,TOTAL 0.6 mg/dL (0.2-1); TOT PROT 8.4 g/dl (6.4-8.2)
[2021-08-24 16:19] LABS: INR 1.09 (0.83-1.09); PROTHROMBIN TIME (PATIENT) 12.6 SEC (9.7-13.0)
[2021-08-24 16:22] LABS: ACTIVATED PTT 42.3 SECONDS (25.2-36.5)
[2021-08-24] MEDS: hydrALAZINE HCL 50 MG TABLET (FP) PO SCH (22:58)
[2021-08-24] MEDS: ATORVASTATIN CA 40 MG TABLET (FP) PO SCH (22:58)
[2021-08-24] MEDS: MIRTAZAPINE 15 MG TABLET (FP) PO SCH (22:59)
[2021-08-24] MEDS: INSULIN SLIDING SCALE (NOVOLOG) 1 VIAL SQ SCH (23:09)
[2021-08-24] MEDS: LATANOPROST 0.005% OPHTH SOLN 2.5ML BOTTLE OU SCH (23:09)
[2021-08-24 23:21] VITALS: BMI 29.6
[2021-08-25] MEDS ORDERED: ACETAMINOPHEN 1000 MG/100 ML BAG IVPB PRN (01:59)
[2021-08-25] MEDS: INSULIN (LEVEMIR) 100 UNITS/ML UNITS SQ SCH (06:08)
[2021-08-25] MEDS: INSULIN SLIDING SCALE (NOVOLOG) 1 VIAL SQ SCH ×4 (06:08→22:20)
[2021-08-25] MEDS: amLODIPine BESYLATE 10 MG TABLET (FP) PO SCH (09:42)
[2021-08-25] MEDS: hydrALAZINE HCL 50 MG TABLET (FP) PO SCH ×2 (09:42→22:12)
[2021-08-25 12:46] LABS: HEMATOCRIT 28.3 % (35.4-49); MCH 26.5 pg (25.7-33.7); MEAN CELL VOLUME 82.8 fl (80-96); PLATELET COUNT 234 10^3/uL (134-434); RBC 3.41 M/mm3 (4.00-5.60); RDW 17.9 % (11.9-15.9); WHITE BLOOD COUNT 14.6 K/mm3 (4.0-10.0)
[2021-08-25 13:05] LABS: CALCIUM 8.5 mg/dL (8.5-10.1)
[2021-08-25 13:06] LABS: ALBUMIN 2.8 g/dl (3.4-5.0); BLOOD UREA NITROGEN 42.4 mg/dL (7-18); MAGNESIUM 2.2 mg/dL (1.8-2.4)
[2021-08-25 13:09] LABS: CREATININE 4.7 mg/dL (0.55-1.3); PHOSPHOROUS 4.2 mg/dL (2.5-4.9)
[2021-08-25 13:10] LABS: TOT PROT 7.1 g/dl (6.4-8.2)
[2021-08-25 13:11] LABS: BILIRUBIN,TOTAL 0.6 mg/dL (0.2-1)
[2021-08-25] MEDS: CEFTRIAXONE 1 GM in DEXTROSE 5%-WATER - 50 ML IVPB SCH (15:55)
[2021-08-25] MEDS ORDERED: INSULIN (NOVOLOG) ASPART 100 UNITS/ML 10ML VIAL ONE (16:32)
[2021-08-25] MEDS ORDERED: cefTRIAXone SODIUM 1 GM VIAL ONE (16:33)
[2021-08-25] MEDS ORDERED: DEXTROSE 5%-WATER - 50 ML IVPB ONE (16:33)
[2021-08-25] MEDS: MIRTAZAPINE 15 MG TABLET (FP) PO SCH (22:11)
[2021-08-25] MEDS: ATORVASTATIN CA 40 MG TABLET (FP) PO SCH (22:12)
[2021-08-26] MEDS: LATANOPROST 0.005% OPHTH SOLN 2.5ML BOTTLE OU SCH ×2 (00:56→21:05)
[2021-08-26] MEDS: INSULIN SLIDING SCALE (NOVOLOG) 1 VIAL SQ SCH ×4 (06:00→21:01)
[2021-08-26] MEDS: INSULIN (LEVEMIR) 100 UNITS/ML UNITS SQ SCH (06:00)
[2021-08-26] MEDS ORDERED: DEXTROSE 5%-WATER - 50 ML IVPB ONE (08:58)
[2021-08-26] MEDS ORDERED: cefTRIAXone SODIUM 1 GM VIAL ONE (08:58)
[2021-08-26] MEDS: amLODIPine BESYLATE 10 MG TABLET (FP) PO SCH (09:21)
[2021-08-26] MEDS: DULoxetine HCL 30 MG CAPSULE.DR PO SCH (09:21)
[2021-08-26] MEDS: hydrALAZINE HCL 50 MG TABLET (FP) PO SCH ×2 (09:21→21:00)
[2021-08-26 09:22] LABS: HEMATOCRIT 30.2 % (35.4-49); HEMOGLOBIN 9.8 GM/dL (11.7-16.9); MCH 27.3 pg (25.7-33.7); MCHC 32.6 g/dl (32.0-35.9); MEAN CELL VOLUME 83.8 fl (80-96); MEAN PLT VOLUME 9.6 fl (7.5-11.1); PLATELET COUNT 245 10^3/uL (134-434); RDW 17.6 % (11.9-15.9)
[2021-08-26] MEDS: CEFTRIAXONE 1 GM in DEXTROSE 5%-WATER - 50 ML IVPB SCH (09:22)
[2021-08-26 10:05] LABS: ALBUMIN 2.9 g/dl (3.4-5.0); BLOOD UREA NITROGEN 57.3 mg/dL (7-18); CALCIUM 8.4 mg/dL (8.5-10.1); MAGNESIUM 2.2 mg/dL (1.8-2.4)
[2021-08-26 10:08] LABS: PHOSPHOROUS 4.5 mg/dL (2.5-4.9)
[2021-08-26 10:09] LABS: BILIRUBIN,TOTAL 0.5 mg/dL (0.2-1)
[2021-08-26 10:12] LABS: TOT PROT 7.8 g/dl (6.4-8.2)
[2021-08-26] MEDS ORDERED: SODIUM CHLORIDE 250 ML IV PRN (13:00)
[2021-08-26] MEDS ORDERED: EPOETIN ALFA-EPBX 4,000 UNIT/ML VIAL IVPUSH ONE (13:00)
[2021-08-26] MEDS ORDERED: INSULIN (NOVOLOG) ASPART 100 UNITS/ML 10ML VIAL ONE (20:35)
[2021-08-26] MEDS: ATORVASTATIN CA 40 MG TABLET (FP) PO SCH (21:00)
[2021-08-26] MEDS: MIRTAZAPINE 15 MG TABLET (FP) PO SCH (21:01)
[2021-08-27] MEDS: INSULIN SLIDING SCALE (NOVOLOG) 1 VIAL SQ SCH ×4 (06:26→21:19)
[2021-08-27] MEDS: INSULIN (LEVEMIR) 100 UNITS/ML UNITS SQ SCH (06:26)
[2021-08-27] MEDS ORDERED: DEXTROSE 5%-WATER - 50 ML IVPB ONE (08:05)
[2021-08-27] MEDS ORDERED: cefTRIAXone SODIUM 1 GM VIAL ONE (08:05)
[2021-08-27] MEDS: DULoxetine HCL 30 MG CAPSULE.DR PO SCH (09:03)
[2021-08-27] MEDS: CEFTRIAXONE 1 GM in DEXTROSE 5%-WATER - 50 ML IVPB SCH (09:03)
[2021-08-27] MEDS: hydrALAZINE HCL 50 MG TABLET (FP) PO SCH ×2 (09:03→21:19)
[2021-08-27] MEDS: amLODIPine BESYLATE 10 MG TABLET (FP) PO SCH (09:04)
[2021-08-27 10:43] LABS: HEMATOCRIT 29.5 % (35.4-49); HEMOGLOBIN 9.5 GM/dL (11.7-16.9); MCH 26.9 pg (25.7-33.7); MCHC 32.2 g/dl (32.0-35.9); MEAN CELL VOLUME 83.7 fl (80-96); MEAN PLT VOLUME 10.3 fl (7.5-11.1); PLATELET COUNT 241 10^3/uL (134-434); RBC 3.52 M/mm3 (4.00-5.60); RDW 17.3 % (11.9-15.9); WHITE BLOOD COUNT 9.2 K/mm3 (4.0-10.0)
[2021-08-27 11:10] LABS: CALCIUM 8.4 mg/dL (8.5-10.1)
[2021-08-27 11:12] LABS: MAGNESIUM 2.1 mg/dL (1.8-2.4)
[2021-08-27 11:13] LABS: CREATININE 4.4 mg/dL (0.55-1.3); PHOSPHOROUS 3.8 mg/dL (2.5-4.9)
[2021-08-27] MEDS ORDERED: INSULIN (NOVOLOG) ASPART 100 UNITS/ML 10ML VIAL ONE (20:30)
[2021-08-27] MEDS: ATORVASTATIN CA 40 MG TABLET (FP) PO SCH (21:19)
[2021-08-27] MEDS: MIRTAZAPINE 15 MG TABLET (FP) PO SCH (21:19)
[2021-08-27] MEDS: LATANOPROST 0.005% OPHTH SOLN 2.5ML BOTTLE OU SCH (21:20)
[2021-08-28] MEDS: INSULIN (LEVEMIR) 100 UNITS/ML UNITS SQ SCH (06:08)
[2021-08-28] MEDS: INSULIN SLIDING SCALE (NOVOLOG) 1 VIAL SQ SCH ×2 (06:08→14:32)
[2021-08-28 09:20] LABS: HEMATOCRIT 27.9 % (35.4-49); HEMOGLOBIN 9.3 GM/dL (11.7-16.9); MCH 27.6 pg (25.7-33.7); MCHC 33.3 g/dl (32.0-35.9); MEAN CELL VOLUME 82.9 fl (80-96); MEAN PLT VOLUME 9.4 fl (7.5-11.1); PLATELET COUNT 242 10^3/uL (134-434); RBC 3.37 M/mm3 (4.00-5.60); RDW 17.2 % (11.9-15.9); WHITE BLOOD COUNT 7.6 K/mm3 (4.0-10.0)
[2021-08-28 09:50] LABS: BLOOD UREA NITROGEN 47.9 mg/dL (7-18); CALCIUM 8.5 mg/dL (8.5-10.1)
[2021-08-28 09:54] LABS: CREATININE 5.4 mg/dL (0.55-1.3)
[2021-08-28] MEDS ORDERED: SODIUM CHLORIDE 250 ML IV PRN (09:56)
[2021-08-28] MEDS ORDERED: EPOETIN ALFA-EPBX 4,000 UNIT/ML VIAL SQ ONE (10:15)
[2021-08-28] MEDS ORDERED: cefTRIAXone SODIUM 1 GM VIAL ONE (14:22)
[2021-08-28] MEDS ORDERED: DEXTROSE 5%-WATER - 50 ML IVPB ONE (14:23)
[2021-08-28] MEDS: DULoxetine HCL 30 MG CAPSULE.DR PO SCH (14:24)
[2021-08-28] MEDS: hydrALAZINE HCL 50 MG TABLET (FP) PO SCH (14:24)
[2021-08-28] MEDS: amLODIPine BESYLATE 10 MG TABLET (FP) PO SCH (14:24)
[2021-08-28] MEDS: CEFTRIAXONE 1 GM in DEXTROSE 5%-WATER - 50 ML IVPB SCH (14:25)
[2021-08-28 14:43] VITALS: BP 130/66; PULSE 104; TEMP 98.9
== END 2021-08-28 18:49 | disposition home or self-care (01) | DRG 698 ==
LOC: JER 12:12 → JERBED 17:04 → J5S 21:32 → J6S 21:43
PROVIDERS: ADMIT Internal Medicine; ATTEND Internal Medicine
PROC: 0T25X0Z Change Drainage Device in Kidney, External Approach (ICD-10-PCS; principal; 2021-08-25)
PROC: BT140ZZ Fluoroscopy of Kidneys, Ureters and Bladder using High Osmolar Contrast (ICD-10-PCS; 2021-08-25)
PROC: 5A1D70Z Performance of Urinary Filtration, Intermittent, Less than 6 Hours Per Day (ICD-10-PCS; 2021-08-28)
DX: T83.092A Other mechanical complication of nephrostomy catheter, initial encounter (principal); N18.6 End stage renal disease; N13.30 Unspecified hydronephrosis; I12.0 Hypertensive chronic kidney disease with stage 5 chronic kidney disease or end stage renal disease; E11.9 Type 2 diabetes mellitus without complications; I25.10 Atherosclerotic heart disease of native coronary artery without angina pectoris; Z98.61 Coronary angioplasty status; K21.9 Gastro-esophageal reflux disease without esophagitis; N40.0 Benign prostatic hyperplasia without lower urinary tract symptoms; Y83.9 Surgical procedure, unspecified as the cause of abnormal reaction of the patient, or of later complication, without mention of misadventure at the time of the procedure; Z99.2 Dependence on renal dialysis
CPT/HCPCS: 36415; 50435; 74176-TC; 80048; 80053; 82962; 83735; 84100; 85025; 85027; 85610; 85730; 86803; 86850; 86900; 86901; 87086; 87102; 87116; 87210; 87340; 93005; 93010; 97116-GP; 97161-GP; 99285-25; C9803; Q5106; U0003; U0005

== ENCOUNTER → 2021-10-08 | Day surgery (SDC) | payer MEDICARE, OTHER | END | disposition home or self-care (01) | LOC: JRADIR 10:55 | PROVIDERS: ATTEND Urology | PROC: 0T25X0Z Change Drainage Device in Kidney, External Approach (ICD-10-PCS; principal; 2021-10-08) | DX: T83.89XA Other specified complication of genitourinary prosthetic devices, implants and grafts, initial encounter (principal) | CPT/HCPCS: 50435 ==

== ENCOUNTER 2021-11-30 22:49 | Inpatient (IN) | payer MEDICARE, OTHER ==
[2021-12-01] MEDS ORDERED: ACETAMINOPHEN 1000 MG/100 ML BAG IVPB ONE (00:26)
[2021-12-01] MEDS: INSULIN SLIDING SCALE (NOVOLOG) 1 VIAL SQ SCH ×4 (00:38→21:29)
[2021-12-01 01:26] LABS: INR 0.97 (0.83-1.09); PROTHROMBIN TIME (PATIENT) 11.1 SEC (9.7-13.0)
[2021-12-01 01:28] LABS: ACTIVATED PTT 38.2 SECONDS (25.2-36.5)
[2021-12-01 01:36] LABS: BLOOD UREA NITROGEN 37.9 mg/dL (7-18); CALCIUM 8.7 mg/dL (8.5-10.1)
[2021-12-01 01:37] LABS: ALBUMIN 3.8 g/dl (3.4-5.0)
[2021-12-01 01:40] LABS: CREATININE 4.1 mg/dL (0.55-1.3)
[2021-12-01 01:41] LABS: BILIRUBIN,TOTAL 0.4 mg/dL (0.2-1)
[2021-12-01 01:43] LABS: BASO % 0.7 % (0-2.0); EOS % 3.5 % (0-4.5); HEMATOCRIT 33.6 % (35.4-49); HEMOGLOBIN 11.3 GM/dL (11.7-16.9); LYMPH % 13.5 % (8-40); MCH 28.8 pg (25.7-33.7); MCHC 33.7 g/dl (32.0-35.9); MEAN CELL VOLUME 85.5 fl (80-96); MEAN PLT VOLUME 10.1 fl (7.5-11.1); MONO % 8.5 % (3.8-10.2); NEUT % 73.8 % (42.8-82.8); PLATELET COUNT 123 10^3/uL (134-434); RBC 3.93 M/mm3 (4.00-5.60)
[2021-12-01] MEDS ORDERED: ACETAMINOPHEN INJECTION 100 ML IVPB ONE ×2 (02:31→10:00)
[2021-12-01] MEDS: ACETAMINOPHEN 1000 MG/100 ML BAG IVPB PRN ×2 (10:19→20:35)
[2021-12-01 10:43] LABS: EPI CELLS 34 /uL (0-25.1); HYALINE CASTS 13 /uL (0-3.1); PH,URINE 8.5 (5.0-8.0); URINE APPEARANCE TURBID; URINE BACTERIA >9,000 /uL (0-1359); URINE BILIRUBIN NEGATIVE (NEGATIVE); URINE COLOR YELLOW; URINE GLUCOSE (UA) NEGATIVE (NEGATIVE); URINE KETONE NEGATIVE (NEGATIVE); URINE LEUK ESTERASE 3+ (NEGATIVE); URINE NITRITE NEGATIVE (NEGATIVE); URINE PROTEIN 3+ (NEGATIVE); URINE UROBILINOGEN 0.2 mg/dL (0.2-1.0); URINE WBC 17877 /uL (0-25.8)
[2021-12-01] MEDS ORDERED: ASPIRIN 81 MG CHEWABLE TABLETS ONE (10:57)
[2021-12-01] MEDS ORDERED: FUROSEMIDE 40 MG TABLET (FP) ONE ×2 (10:57→14:24)
[2021-12-01] MEDS ORDERED: DULoxetine HCL 30 MG CAPSULE.DR PO ONE (10:58)
[2021-12-01 11:08] LABS: URINE RBC 671.3 /uL (0-23.9); YEAST NO SEEN (NEGATIVE)
[2021-12-01] MEDS: LABETALOL HCL 200 MG TABLET (FP) PO SCH ×2 (11:09→21:24)
[2021-12-01] MEDS: ASPIRIN 81 MG CHEWABLE TABLETS PO SCH (11:09)
[2021-12-01] MEDS: DULoxetine HCL 30 MG CAPSULE.DR PO SCH (11:09)
[2021-12-01] MEDS: amLODIPine BESYLATE 10 MG TABLET (FP) PO SCH (11:09)
[2021-12-01] MEDS: FUROSEMIDE 40 MG TABLET (FP) PO SCH ×2 (11:09→14:39)
[2021-12-01] MEDS ORDERED: INSULIN SLIDING SCALE (NOVOLOG) 1 VIAL SQ ONE (11:13)
[2021-12-01] MEDS ORDERED: MEROPENEM 1 GM in DEXTROSE 5%-WATER 100 ML IVPB SCH ×2 (13:00→13:30)
[2021-12-01] MEDS ORDERED: HEPARIN NA (PORCINE) 5,000 UNITS/ML 1ML VIAL ONE (14:24)
[2021-12-01] MEDS ORDERED: MEROPENEM 1 GM VIAL (RESTRICTED TO ID) IVPB ONE (14:24)
[2021-12-01] MEDS: HEPARIN NA (PORCINE) 5,000 UNITS/ML 1ML VIAL SQ SCH ×2 (14:39→21:24)
[2021-12-01 16:34] VITALS: BMI 27.8
[2021-12-01] MEDS ORDERED: MEROPENEM 500 MG VIAL (RESTRICTED TO ID) IVPB ONE (21:04)
[2021-12-01] MEDS ORDERED: DEXTROSE 5%-WATER 100 ML IVPB ONE (21:04)
[2021-12-01] MEDS: MEROPENEM 500 MG in DEXTROSE 5%-WATER 100 ML IVPB SCH (21:23)
[2021-12-01] MEDS: ATORVASTATIN CA 40 MG TABLET (FP) PO SCH (21:24)
[2021-12-02] MEDS: FUROSEMIDE 40 MG TABLET (FP) PO SCH ×2 (06:31→14:42)
[2021-12-02] MEDS: INSULIN SLIDING SCALE (NOVOLOG) 1 VIAL SQ SCH ×3 (06:31→17:58)
[2021-12-02] MEDS: HEPARIN NA (PORCINE) 5,000 UNITS/ML 1ML VIAL SQ SCH ×3 (06:31→22:15)
[2021-12-02 09:22] LABS: BASO % 0.4 % (0-2.0); EOS % 0.5 % (0-4.5); HEMATOCRIT 31.7 % (35.4-49); HEMOGLOBIN 10.6 GM/dL (11.7-16.9); MCH 28.7 pg (25.7-33.7); MCHC 33.4 g/dl (32.0-35.9); MEAN CELL VOLUME 85.8 fl (80-96); MEAN PLT VOLUME 10.6 fl (7.5-11.1); NEUT % 80.1 % (42.8-82.8); PLATELET COUNT 107 10^3/uL (134-434); RBC 3.69 M/mm3 (4.00-5.60); RDW 15.1 % (11.9-15.9); WHITE BLOOD COUNT 9.9 K/mm3 (4.0-10.0)
[2021-12-02 09:46] LABS: ALBUMIN 3.3 g/dl (3.4-5.0); BLOOD UREA NITROGEN 53.7 mg/dL (7-18); CALCIUM 8.4 mg/dL (8.5-10.1); MAGNESIUM 2.1 mg/dL (1.8-2.4)
[2021-12-02 09:47] LABS: PHOSPHOROUS 4.6 mg/dL (2.5-4.9)
[2021-12-02 09:48] LABS: BILIRUBIN,TOTAL 0.6 mg/dL (0.2-1); CREATININE 5.8 mg/dL (0.55-1.3)
[2021-12-02 09:49] LABS: TOT PROT 7.4 g/dl (6.4-8.2)
[2021-12-02] MEDS ORDERED: MEROPENEM 1 GM in DEXTROSE 5%-WATER 100 ML IVPB SCH (10:00)
[2021-12-02] MEDS ORDERED: SODIUM CHLORIDE 250 ML IV PRN (11:00)
[2021-12-02] MEDS ORDERED: EPOETIN ALFA-EPBX 4,000 UNIT/ML VIAL IVPUSH ONE (11:00)
[2021-12-02] MEDS: POLYETHYLENE GLYCOL (HEALTHYLAX) 3350 17 GM PACKET PO SCH ×2 (12:00→22:14)
[2021-12-02] MEDS: amLODIPine BESYLATE 10 MG TABLET (FP) PO SCH (12:00)
[2021-12-02] MEDS: DULoxetine HCL 30 MG CAPSULE.DR PO SCH (12:00)
[2021-12-02] MEDS: MEROPENEM 500 MG in DEXTROSE 5%-WATER 100 ML IVPB SCH ×2 (12:00→22:13)
[2021-12-02] MEDS: LABETALOL HCL 200 MG TABLET (FP) PO SCH ×2 (12:00→22:14)
[2021-12-02] MEDS: ASPIRIN 81 MG CHEWABLE TABLETS PO SCH (12:00)
[2021-12-02] MEDS ORDERED: MEROPENEM 500 MG VIAL (RESTRICTED TO ID) IVPB ONE ×2 (14:47→21:25)
[2021-12-02] MEDS ORDERED: DEXTROSE 5%-WATER 100 ML IVPB ONE ×2 (14:47→21:26)
[2021-12-02] MEDS: ATORVASTATIN CA 40 MG TABLET (FP) PO SCH (22:14)
[2021-12-02] MEDS: MIRTAZAPINE 15 MG TABLET (FP) PO SCH (22:14)
[2021-12-02] MEDS: GABAPENTIN 300 MG CAPSULE PO SCH (22:14)
[2021-12-02] MEDS: hydrALAZINE HCL 50 MG TABLET (FP) PO SCH (22:14)
[2021-12-02] MEDS: INSULIN (LEVEMIR) 100 UNITS/ML UNITS SQ SCH (22:15)
[2021-12-02] MEDS: LATANOPROST 0.005% OPHTH SOLN 2.5ML BOTTLE OU SCH (23:52)
[2021-12-03] MEDS: HEPARIN NA (PORCINE) 5,000 UNITS/ML 1ML VIAL SQ SCH ×3 (06:26→21:57)
[2021-12-03] MEDS: INSULIN (LEVEMIR) 100 UNITS/ML UNITS SQ SCH ×2 (06:27→21:57)
[2021-12-03] MEDS: SODIUM BICARBONATE 650 MG TABLET PO SCH ×3 (06:27→21:57)
[2021-12-03] MEDS: FUROSEMIDE 40 MG TABLET (FP) PO SCH ×2 (06:27→13:35)
[2021-12-03] MEDS ORDERED: INSULIN (LEVEMIR) 100 UNITS/ML UNITS SQ ONE (07:58)
[2021-12-03] MEDS ORDERED: INSULIN (NOVOLOG) ASPART 100 UNITS/ML 10ML VIAL ONE ×2 (07:59→17:26)
[2021-12-03 09:48] LABS: BASO % 0.5 % (0-2.0); EOS % 0.8 % (0-4.5); HEMATOCRIT 30.9 % (35.4-49); HEMOGLOBIN 10.2 GM/dL (11.7-16.9); LYMPH % 16.9 % (8-40); MCH 28.1 pg (25.7-33.7); MCHC 32.9 g/dl (32.0-35.9); MEAN CELL VOLUME 85.2 fl (80-96); MEAN PLT VOLUME 10.9 fl (7.5-11.1); MONO % 12.1 % (3.8-10.2); NEUT % 69.7 % (42.8-82.8); PLATELET COUNT 97 10^3/uL (134-434); RBC 3.63 M/mm3 (4.00-5.60); RDW 15.2 % (11.9-15.9)
[2021-12-03 09:57] LABS: BLOOD UREA NITROGEN 33.2 mg/dL (7-18)
[2021-12-03 09:58] LABS: CALCIUM 8.5 mg/dL (8.5-10.1); MAGNESIUM 2.1 mg/dL (1.8-2.4)
[2021-12-03 09:59] LABS: PHOSPHOROUS 5.2 mg/dL (2.5-4.9)
[2021-12-03 10:01] LABS: CREATININE 4.7 mg/dL (0.55-1.3)
[2021-12-03] MEDS ORDERED: DEXTROSE 5%-WATER 100 ML IVPB ONE ×2 (10:15→21:22)
[2021-12-03] MEDS ORDERED: MEROPENEM 500 MG VIAL (RESTRICTED TO ID) IVPB ONE ×2 (10:15→21:21)
[2021-12-03] MEDS: MEROPENEM 500 MG in DEXTROSE 5%-WATER 100 ML IVPB SCH ×2 (10:35→21:56)
[2021-12-03] MEDS: GABAPENTIN 300 MG CAPSULE PO SCH ×2 (10:37→21:57)
[2021-12-03] MEDS: DULoxetine HCL 30 MG CAPSULE.DR PO SCH (10:37)
[2021-12-03] MEDS: ASPIRIN 81 MG CHEWABLE TABLETS PO SCH (10:37)
[2021-12-03] MEDS: hydrALAZINE HCL 50 MG TABLET (FP) PO SCH ×2 (10:37→21:56)
[2021-12-03] MEDS: LABETALOL HCL 200 MG TABLET (FP) PO SCH ×2 (10:37→21:57)
[2021-12-03] MEDS: amLODIPine BESYLATE 10 MG TABLET (FP) PO SCH (10:37)
[2021-12-03] MEDS: POLYETHYLENE GLYCOL (HEALTHYLAX) 3350 17 GM PACKET PO SCH ×2 (10:38→21:55)
[2021-12-03] MEDS: INSULIN SLIDING SCALE (NOVOLOG) 1 VIAL SQ SCH ×2 (11:22→16:44)
[2021-12-03] MEDS: MIRTAZAPINE 15 MG TABLET (FP) PO SCH (21:56)
[2021-12-03] MEDS: ATORVASTATIN CA 40 MG TABLET (FP) PO SCH (21:56)
[2021-12-03] MEDS: LATANOPROST 0.005% OPHTH SOLN 2.5ML BOTTLE OU SCH (22:02)
[2021-12-04] MEDS: HEPARIN NA (PORCINE) 5,000 UNITS/ML 1ML VIAL SQ SCH ×3 (06:27→21:24)
[2021-12-04] MEDS: FUROSEMIDE 40 MG TABLET (FP) PO SCH ×2 (06:28→18:07)
[2021-12-04] MEDS: INSULIN SLIDING SCALE (NOVOLOG) 1 VIAL SQ SCH ×3 (06:28→18:07)
[2021-12-04] MEDS: INSULIN (LEVEMIR) 100 UNITS/ML UNITS SQ SCH ×2 (06:28→21:27)
[2021-12-04] MEDS: SODIUM BICARBONATE 650 MG TABLET PO SCH ×3 (06:28→21:23)
[2021-12-04] MEDS ORDERED: INSULIN (LEVEMIR) 100 UNITS/ML UNITS SQ SCH (07:38)
[2021-12-04] MEDS ORDERED: DEXTROSE 5%-WATER 100 ML IVPB ONE ×2 (10:13→21:09)
[2021-12-04] MEDS ORDERED: MEROPENEM 500 MG VIAL (RESTRICTED TO ID) IVPB ONE ×2 (10:13→21:09)
[2021-12-04] MEDS: DULoxetine HCL 30 MG CAPSULE.DR PO SCH (10:16)
[2021-12-04] MEDS: LABETALOL HCL 200 MG TABLET (FP) PO SCH ×2 (10:16→21:23)
[2021-12-04] MEDS: hydrALAZINE HCL 50 MG TABLET (FP) PO SCH ×2 (10:17→21:23)
[2021-12-04] MEDS: GABAPENTIN 300 MG CAPSULE PO SCH ×2 (10:17→21:23)
[2021-12-04] MEDS: POLYETHYLENE GLYCOL (HEALTHYLAX) 3350 17 GM PACKET PO SCH ×2 (10:17→21:24)
[2021-12-04] MEDS: MEROPENEM 500 MG in DEXTROSE 5%-WATER 100 ML IVPB SCH ×2 (10:17→21:24)
[2021-12-04] MEDS: ASPIRIN 81 MG CHEWABLE TABLETS PO SCH (10:17)
[2021-12-04] MEDS: amLODIPine BESYLATE 10 MG TABLET (FP) PO SCH (10:17)
[2021-12-04 10:38] LABS: BASO % 0.5 % (0-2.0); HEMATOCRIT 30.8 % (35.4-49); HEMOGLOBIN 10.3 GM/dL (11.7-16.9); LYMPH % 19.3 % (8-40); MCH 28.6 pg (25.7-33.7); MCHC 33.4 g/dl (32.0-35.9); MEAN CELL VOLUME 85.5 fl (80-96); MONO % 12.1 % (3.8-10.2); NEUT % 65.1 % (42.8-82.8); PLATELET COUNT 119 10^3/uL (134-434); RBC 3.61 M/mm3 (4.00-5.60); WHITE BLOOD COUNT 7.6 K/mm3 (4.0-10.0)
[2021-12-04 11:04] LABS: CALCIUM 8.7 mg/dL (8.5-10.1)
[2021-12-04 11:05] LABS: ALBUMIN 3.1 g/dl (3.4-5.0)
[2021-12-04 11:09] LABS: BILIRUBIN,TOTAL 0.6 mg/dL (0.2-1)
[2021-12-04 11:12] LABS: CREATININE 6.3 mg/dL (0.55-1.3); TOT PROT 7.4 g/dl (6.4-8.2)
[2021-12-04 11:19] LABS: BLOOD UREA NITROGEN 58.4 mg/dL (7-18)
[2021-12-04] MEDS ORDERED: SODIUM CHLORIDE 250 ML IV PRN (15:58)
[2021-12-04] MEDS ORDERED: EPOETIN ALFA-EPBX 4,000 UNIT/ML VIAL IVPUSH ONE (16:00)
[2021-12-04] MEDS: MIRTAZAPINE 15 MG TABLET (FP) PO SCH (21:23)
[2021-12-04] MEDS: ATORVASTATIN CA 40 MG TABLET (FP) PO SCH (21:23)
[2021-12-04] MEDS: LATANOPROST 0.005% OPHTH SOLN 2.5ML BOTTLE OU SCH (21:28)
[2021-12-05] MEDS: SODIUM BICARBONATE 650 MG TABLET PO SCH ×3 (06:04→21:47)
[2021-12-05] MEDS: FUROSEMIDE 40 MG TABLET (FP) PO SCH ×2 (06:04→14:23)
[2021-12-05] MEDS: HEPARIN NA (PORCINE) 5,000 UNITS/ML 1ML VIAL SQ SCH ×3 (06:04→21:48)
[2021-12-05] MEDS: INSULIN SLIDING SCALE (NOVOLOG) 1 VIAL SQ SCH ×3 (06:09→16:57)
[2021-12-05 09:13] LABS: CALCIUM 8.7 mg/dL (8.5-10.1)
[2021-12-05 09:14] LABS: BLOOD UREA NITROGEN 35.3 mg/dL (7-18)
[2021-12-05 09:17] LABS: CREATININE 4.6 mg/dL (0.55-1.3); PHOSPHOROUS 4.1 mg/dL (2.5-4.9)
[2021-12-05] MEDS ORDERED: POTASSIUM CHLORIDE ORAL LIQUID 20 MEQ/15 ML PO ONE (09:33)
[2021-12-05] MEDS ORDERED: DEXTROSE 5%-WATER 100 ML IVPB ONE ×2 (11:20→21:05)
[2021-12-05] MEDS ORDERED: MEROPENEM 500 MG VIAL (RESTRICTED TO ID) IVPB ONE ×2 (11:20→21:04)
[2021-12-05] MEDS: ASPIRIN 81 MG CHEWABLE TABLETS PO SCH (11:27)
[2021-12-05] MEDS: LABETALOL HCL 200 MG TABLET (FP) PO SCH ×2 (11:28→21:47)
[2021-12-05] MEDS: amLODIPine BESYLATE 10 MG TABLET (FP) PO SCH (11:28)
[2021-12-05] MEDS: DULoxetine HCL 30 MG CAPSULE.DR PO SCH (11:28)
[2021-12-05] MEDS: POLYETHYLENE GLYCOL (HEALTHYLAX) 3350 17 GM PACKET PO SCH ×2 (11:29→21:47)
[2021-12-05] MEDS: hydrALAZINE HCL 50 MG TABLET (FP) PO SCH ×2 (11:29→21:47)
[2021-12-05] MEDS: MEROPENEM 500 MG in DEXTROSE 5%-WATER 100 ML IVPB SCH ×2 (11:29→21:48)
[2021-12-05] MEDS: GABAPENTIN 300 MG CAPSULE PO SCH ×2 (11:29→21:47)
[2021-12-05] MEDS ORDERED: VANCOMYCIN/WATER FOR INJ (PEG) 1,000 MG/200 ML BAG IVPB ONE (17:15)
[2021-12-05] MEDS: MIRTAZAPINE 15 MG TABLET (FP) PO SCH (21:47)
[2021-12-05] MEDS: ATORVASTATIN CA 40 MG TABLET (FP) PO SCH (21:47)
[2021-12-05] MEDS: LATANOPROST 0.005% OPHTH SOLN 2.5ML BOTTLE OU SCH (21:48)
[2021-12-05] MEDS: INSULIN (LEVEMIR) 100 UNITS/ML UNITS SQ SCH (21:54)
[2021-12-06] MEDS: FUROSEMIDE 40 MG TABLET (FP) PO SCH ×2 (06:14→14:25)
[2021-12-06] MEDS: SODIUM BICARBONATE 650 MG TABLET PO SCH (06:14)
[2021-12-06] MEDS: HEPARIN NA (PORCINE) 5,000 UNITS/ML 1ML VIAL SQ SCH ×3 (06:14→22:08)
[2021-12-06] MEDS: INSULIN (LEVEMIR) 100 UNITS/ML UNITS SQ SCH ×2 (06:14→22:09)
[2021-12-06] MEDS: INSULIN SLIDING SCALE (NOVOLOG) 1 VIAL SQ SCH ×3 (06:15→17:16)
[2021-12-06] MEDS ORDERED: MEROPENEM 500 MG VIAL (RESTRICTED TO ID) IVPB ONE ×2 (09:17→21:24)
[2021-12-06] MEDS ORDERED: DEXTROSE 5%-WATER 100 ML IVPB ONE ×2 (09:18→21:24)
[2021-12-06] MEDS: GABAPENTIN 300 MG CAPSULE PO SCH ×2 (09:28→22:08)
[2021-12-06] MEDS: amLODIPine BESYLATE 10 MG TABLET (FP) PO SCH (09:28)
[2021-12-06] MEDS: LABETALOL HCL 200 MG TABLET (FP) PO SCH ×2 (09:28→22:08)
[2021-12-06] MEDS: hydrALAZINE HCL 50 MG TABLET (FP) PO SCH ×2 (09:28→22:09)
[2021-12-06] MEDS: ASPIRIN 81 MG CHEWABLE TABLETS PO SCH (09:28)
[2021-12-06] MEDS: DULoxetine HCL 30 MG CAPSULE.DR PO SCH (09:28)
[2021-12-06] MEDS: MEROPENEM 500 MG in DEXTROSE 5%-WATER 100 ML IVPB SCH ×2 (09:28→22:06)
[2021-12-06] MEDS: POLYETHYLENE GLYCOL (HEALTHYLAX) 3350 17 GM PACKET PO SCH ×2 (09:29→22:09)
[2021-12-06 12:07] LABS: HEMATOCRIT 30.1 % (35.4-49); HEMOGLOBIN 9.9 GM/dL (11.7-16.9); MCH 28.5 pg (25.7-33.7); MCHC 32.9 g/dl (32.0-35.9); MEAN CELL VOLUME 86.6 fl (80-96); MEAN PLT VOLUME 10.9 fl (7.5-11.1); PLATELET COUNT 139 10^3/uL (134-434); RBC 3.47 M/mm3 (4.00-5.60); RDW 15.4 % (11.9-15.9); WHITE BLOOD COUNT 6.4 K/mm3 (4.0-10.0)
[2021-12-06 12:27] LABS: BLOOD UREA NITROGEN 51.9 mg/dL (7-18); CALCIUM 8.6 mg/dL (8.5-10.1)
[2021-12-06 12:30] LABS: PHOSPHOROUS 3.9 mg/dL (2.5-4.9)
[2021-12-06 12:32] LABS: BILIRUBIN,TOTAL 0.4 mg/dL (0.2-1); TOT PROT 7.1 g/dl (6.4-8.2)
[2021-12-06 14:32] LABS: ANISOCYTOSIS 0; HELMET CELLS 0; HOWELL-JOLLY BODIES 0; MACROCYTOSIS 0; OVALOCYTE 0; ROULEAU 0; SICKELED CELLS 0; TARGET CELLS 0; TEAR DROP CELLS 0; TOXIC GRANULATION 0
[2021-12-06] MEDS: MIRTAZAPINE 15 MG TABLET (FP) PO SCH (22:09)
[2021-12-06] MEDS: LATANOPROST 0.005% OPHTH SOLN 2.5ML BOTTLE OU SCH (22:09)
[2021-12-06] MEDS: ATORVASTATIN CA 40 MG TABLET (FP) PO SCH (22:09)
[2021-12-07] MEDS: HEPARIN NA (PORCINE) 5,000 UNITS/ML 1ML VIAL SQ SCH ×3 (06:32→21:33)
[2021-12-07] MEDS: INSULIN (LEVEMIR) 100 UNITS/ML UNITS SQ SCH ×2 (06:32→21:34)
[2021-12-07] MEDS: FUROSEMIDE 40 MG TABLET (FP) PO SCH ×2 (06:32→14:59)
[2021-12-07] MEDS: INSULIN SLIDING SCALE (NOVOLOG) 1 VIAL SQ SCH ×3 (06:33→16:52)
[2021-12-07] MEDS ORDERED: EPOETIN ALFA-EPBX 4,000 UNIT/ML VIAL IVPUSH ONE (08:00)
[2021-12-07 10:37] LABS: HEMATOCRIT 29.4 % (35.4-49); HEMOGLOBIN 9.7 GM/dL (11.7-16.9); MCH 28.3 pg (25.7-33.7); MCHC 33.1 g/dl (32.0-35.9); MEAN CELL VOLUME 85.6 fl (80-96); MEAN PLT VOLUME 10.4 fl (7.5-11.1); PLATELET COUNT 144 10^3/uL (134-434); RBC 3.44 M/mm3 (4.00-5.60); RDW 15.3 % (11.9-15.9); WHITE BLOOD COUNT 5.8 K/mm3 (4.0-10.0)
[2021-12-07 11:10] LABS: BLOOD UREA NITROGEN 51.8 mg/dL (7-18); CALCIUM 8.6 mg/dL (8.5-10.1)
[2021-12-07 11:13] LABS: CREATININE 5.4 mg/dL (0.55-1.3)
[2021-12-07 11:15] LABS: TOT PROT 7.2 g/dl (6.4-8.2)
[2021-12-07 11:17] LABS: BILIRUBIN,TOTAL 0.4 mg/dL (0.2-1)
[2021-12-07] MEDS: VANCOMYCIN/WATER FOR INJ (PEG) 1 GM/200 ML BAG IVPB ONE ×2 (11:30→15:59)
[2021-12-07 11:35] LABS: ANISOCYTOSIS 1+; MACROCYTOSIS 0
[2021-12-07] MEDS ORDERED: DEXTROSE 5%-WATER 100 ML IVPB ONE ×2 (12:36→21:12)
[2021-12-07] MEDS ORDERED: MEROPENEM 500 MG VIAL (RESTRICTED TO ID) IVPB ONE ×2 (12:36→21:12)
[2021-12-07] MEDS: MEROPENEM 500 MG in DEXTROSE 5%-WATER 100 ML IVPB SCH ×2 (12:40→21:33)
[2021-12-07] MEDS: GABAPENTIN 300 MG CAPSULE PO SCH ×2 (12:41→21:34)
[2021-12-07] MEDS: LABETALOL HCL 200 MG TABLET (FP) PO SCH ×2 (12:41→21:33)
[2021-12-07] MEDS: ASPIRIN 81 MG CHEWABLE TABLETS PO SCH (12:42)
[2021-12-07] MEDS: hydrALAZINE HCL 50 MG TABLET (FP) PO SCH ×2 (12:43→21:34)
[2021-12-07] MEDS: VITAMIN B COMP W-C 1 EA TABLET (NEPHRO-VITE) PO SCH (12:43)
[2021-12-07] MEDS: POLYETHYLENE GLYCOL (HEALTHYLAX) 3350 17 GM PACKET PO SCH ×2 (12:44→21:34)
[2021-12-07] MEDS: amLODIPine BESYLATE 10 MG TABLET (FP) PO SCH (12:45)
[2021-12-07] MEDS: DULoxetine HCL 30 MG CAPSULE.DR PO SCH (12:46)
[2021-12-07] MEDS: ATORVASTATIN CA 40 MG TABLET (FP) PO SCH (21:33)
[2021-12-07] MEDS: MIRTAZAPINE 15 MG TABLET (FP) PO SCH (21:33)
[2021-12-07] MEDS: LATANOPROST 0.005% OPHTH SOLN 2.5ML BOTTLE OU SCH (21:44)
[2021-12-08] MEDS: FUROSEMIDE 40 MG TABLET (FP) PO SCH ×2 (06:31→13:26)
[2021-12-08] MEDS: INSULIN SLIDING SCALE (NOVOLOG) 1 VIAL SQ SCH ×3 (06:31→16:48)
[2021-12-08] MEDS: HEPARIN NA (PORCINE) 5,000 UNITS/ML 1ML VIAL SQ SCH (06:31)
[2021-12-08] MEDS: INSULIN (LEVEMIR) 100 UNITS/ML UNITS SQ SCH ×2 (06:31→22:24)
[2021-12-08] MEDS ORDERED: ACETAMINOPHEN 325 MG TABLET (FP) PO ONE (06:37)
[2021-12-08] MEDS ORDERED: ARTIFICIAL TEARS (POLYVINYL ALCOHOL) OPTH DROPS OU PRN (06:37)
[2021-12-08 08:18] LABS: HEMATOCRIT 30.7 % (35.4-49); HEMOGLOBIN 10.1 GM/dL (11.7-16.9); MCH 28.4 pg (25.7-33.7); MCHC 32.7 g/dl (32.0-35.9); MEAN CELL VOLUME 86.8 fl (80-96); MEAN PLT VOLUME 10.2 fl (7.5-11.1); PLATELET COUNT 159 10^3/uL (134-434); RBC 3.54 M/mm3 (4.00-5.60); RDW 15.2 % (11.9-15.9); WHITE BLOOD COUNT 8.9 K/mm3 (4.0-10.0)
[2021-12-08 08:38] LABS: BLOOD UREA NITROGEN 44.2 mg/dL (7-18); CALCIUM 8.8 mg/dL (8.5-10.1)
[2021-12-08 08:39] LABS: ALBUMIN 3.1 g/dl (3.4-5.0)
[2021-12-08 08:42] LABS: CREATININE 4.4 mg/dL (0.55-1.3)
[2021-12-08 08:43] LABS: BILIRUBIN,TOTAL 0.4 mg/dL (0.2-1); TOT PROT 7.1 g/dl (6.4-8.2)
[2021-12-08 09:37] LABS: ANISOCYTOSIS 0; HELMET CELLS 0; HOWELL-JOLLY BODIES 0; MACROCYTOSIS 0; OVALOCYTE 0; ROULEAU 0; SICKELED CELLS 0; TARGET CELLS 0; TEAR DROP CELLS 0; TOXIC GRANULATION 0
[2021-12-08] MEDS ORDERED: MEROPENEM 500 MG VIAL (RESTRICTED TO ID) IVPB ONE (10:36)
[2021-12-08] MEDS ORDERED: DEXTROSE 5%-WATER 100 ML IVPB ONE (10:37)
[2021-12-08] MEDS: LABETALOL HCL 200 MG TABLET (FP) PO SCH ×2 (10:40→22:20)
[2021-12-08] MEDS: POLYETHYLENE GLYCOL (HEALTHYLAX) 3350 17 GM PACKET PO SCH ×2 (10:40→22:20)
[2021-12-08] MEDS: MEROPENEM 500 MG in DEXTROSE 5%-WATER 100 ML IVPB SCH (10:40)
[2021-12-08] MEDS: VITAMIN B COMP W-C 1 EA TABLET (NEPHRO-VITE) PO SCH (10:41)
[2021-12-08] MEDS: hydrALAZINE HCL 50 MG TABLET (FP) PO SCH ×2 (10:41→22:20)
[2021-12-08] MEDS: DULoxetine HCL 30 MG CAPSULE.DR PO SCH (10:41)
[2021-12-08] MEDS: GABAPENTIN 300 MG CAPSULE PO SCH ×2 (10:41→22:20)
[2021-12-08] MEDS: amLODIPine BESYLATE 10 MG TABLET (FP) PO SCH (10:41)
[2021-12-08] MEDS: ASPIRIN 81 MG CHEWABLE TABLETS PO SCH (10:41)
[2021-12-08] MEDS: ARTIFICIAL TEARS (POLYVINYL ALCOHOL) OPTH DROPS OU SCH ×2 (13:26→22:22)
[2021-12-08] MEDS: ERTAPENEM SODIUM 0.5 GM in SODIUM CHLORIDE 50 ML IVPB SCH (16:08)
[2021-12-08] MEDS: ATORVASTATIN CA 40 MG TABLET (FP) PO SCH (22:20)
[2021-12-08] MEDS: LATANOPROST 0.005% OPHTH SOLN 2.5ML BOTTLE OU SCH (22:21)
[2021-12-08] MEDS: MIRTAZAPINE 15 MG TABLET (FP) PO SCH (22:21)
[2021-12-09] MEDS: FUROSEMIDE 40 MG TABLET (FP) PO SCH ×2 (06:31→15:35)
[2021-12-09] MEDS: INSULIN SLIDING SCALE (NOVOLOG) 1 VIAL SQ SCH ×3 (06:34→17:52)
[2021-12-09] MEDS: INSULIN (LEVEMIR) 100 UNITS/ML UNITS SQ SCH ×2 (06:34→21:20)
[2021-12-09] MEDS: ARTIFICIAL TEARS (POLYVINYL ALCOHOL) OPTH DROPS OU SCH ×2 (10:18→21:22)
[2021-12-09] MEDS: GABAPENTIN 300 MG CAPSULE PO SCH ×2 (10:18→21:19)
[2021-12-09] MEDS: DULoxetine HCL 30 MG CAPSULE.DR PO SCH (10:19)
[2021-12-09] MEDS: VITAMIN B COMP W-C 1 EA TABLET (NEPHRO-VITE) PO SCH (10:19)
[2021-12-09] MEDS: LABETALOL HCL 200 MG TABLET (FP) PO SCH ×2 (10:19→21:19)
[2021-12-09] MEDS: amLODIPine BESYLATE 10 MG TABLET (FP) PO SCH (10:19)
[2021-12-09] MEDS: ASPIRIN 81 MG CHEWABLE TABLETS PO SCH (10:19)
[2021-12-09] MEDS: POLYETHYLENE GLYCOL (HEALTHYLAX) 3350 17 GM PACKET PO SCH ×2 (10:19→21:19)
[2021-12-09] MEDS: hydrALAZINE HCL 50 MG TABLET (FP) PO SCH ×2 (10:19→21:19)
[2021-12-09] MEDS ORDERED: SODIUM CHLORIDE 250 ML IV PRN (12:55)
[2021-12-09] MEDS ORDERED: EPOETIN ALFA-EPBX 4,000 UNIT/ML VIAL IVPUSH ONE (13:00)
[2021-12-09] MEDS ORDERED: EPOETIN ALFA-EPBX 4,000 UNIT/ML VIAL SQ ONE (13:00)
[2021-12-09] MEDS: ERTAPENEM SODIUM 0.5 GM in SODIUM CHLORIDE 50 ML IVPB SCH (17:52)
[2021-12-09] MEDS: MIRTAZAPINE 15 MG TABLET (FP) PO SCH (21:19)
[2021-12-09] MEDS: ATORVASTATIN CA 40 MG TABLET (FP) PO SCH (21:20)
[2021-12-09] MEDS: LATANOPROST 0.005% OPHTH SOLN 2.5ML BOTTLE OU SCH (21:21)
[2021-12-10] MEDS: FUROSEMIDE 40 MG TABLET (FP) PO SCH ×2 (05:46→13:28)
[2021-12-10] MEDS: INSULIN SLIDING SCALE (NOVOLOG) 1 VIAL SQ SCH ×3 (06:23→17:25)
[2021-12-10] MEDS: INSULIN (LEVEMIR) 100 UNITS/ML UNITS SQ SCH (06:24)
[2021-12-10 07:08] VITALS: TEMP 98.9
[2021-12-10] MEDS: VITAMIN B COMP W-C 1 EA TABLET (NEPHRO-VITE) PO SCH (09:19)
[2021-12-10] MEDS: LABETALOL HCL 200 MG TABLET (FP) PO SCH (09:19)
[2021-12-10] MEDS: amLODIPine BESYLATE 10 MG TABLET (FP) PO SCH (09:19)
[2021-12-10] MEDS: GABAPENTIN 300 MG CAPSULE PO SCH (09:19)
[2021-12-10] MEDS: ASPIRIN 81 MG CHEWABLE TABLETS PO SCH (09:19)
[2021-12-10] MEDS: DULoxetine HCL 30 MG CAPSULE.DR PO SCH (09:19)
[2021-12-10] MEDS: POLYETHYLENE GLYCOL (HEALTHYLAX) 3350 17 GM PACKET PO SCH (09:19)
[2021-12-10] MEDS: hydrALAZINE HCL 50 MG TABLET (FP) PO SCH (09:19)
[2021-12-10] MEDS: ARTIFICIAL TEARS (POLYVINYL ALCOHOL) OPTH DROPS OU SCH ×3 (09:56→18:00)
[2021-12-10] MEDS ORDERED: ERTAPENEM SODIUM 0.5 GM in SODIUM CHLORIDE 50 ML IVPB SCH (10:00)
[2021-12-10 13:30] VITALS: BP 140/72
[2021-12-10 13:31] VITALS: PULSE 70
== END 2021-12-10 21:14 | DRG 871 ==
LOC: JER 22:49 → JERBED 12-01 05:31 → J8W 12-01 14:49
PROVIDERS: ADMIT Internal Medicine; ATTEND Internal Medicine
PROC: 5A1D70Z Performance of Urinary Filtration, Intermittent, Less than 6 Hours Per Day (ICD-10-PCS; principal; 2021-12-09)
DX: A41.9 Sepsis, unspecified organism (principal); N18.6 End stage renal disease; N39.0 Urinary tract infection, site not specified; I12.0 Hypertensive chronic kidney disease with stage 5 chronic kidney disease or end stage renal disease; Z16.12 Extended spectrum beta lactamase (ESBL) resistance; B96.1 Klebsiella pneumoniae [K. pneumoniae] as the cause of diseases classified elsewhere; E11.22 Type 2 diabetes mellitus with diabetic chronic kidney disease; Z99.2 Dependence on renal dialysis; K21.9 Gastro-esophageal reflux disease without esophagitis; E78.5 Hyperlipidemia, unspecified; I25.10 Atherosclerotic heart disease of native coronary artery without angina pectoris; K57.90 Diverticulosis of intestine, part unspecified, without perforation or abscess without bleeding; M54.9 Dorsalgia, unspecified; Z98.61 Coronary angioplasty status; E87.6 Hypokalemia
CPT/HCPCS: 36415; 71045-TC-FY; 74176-TC; 80048; 80053; 81003; 82962; 83605; 83735; 84100; 84443; 84484; 85025; 85610; 85730; 86803; 87040; 87070; 87086; 87186; 87205; 87340; 87491; 87591; 87661; 93005; 93010; 99285-25; C9803-CS; G0480; J1644; Q5106; U0003; U0005

== ENCOUNTER 2022-02-12 14:36 | Emergency (ER) | payer MEDICARE, OTHER ==
[2022-02-12 15:09] VITALS: BP 144/63; PULSE 73; RESP 20; TEMP 98.7; BMI 34.3
== END 2022-02-12 17:52 | disposition home or self-care (01) ==
LOC: JER 14:36
DX: T83.092A Other mechanical complication of nephrostomy catheter, initial encounter (principal)
CPT/HCPCS: 99283-25

== ENCOUNTER 2022-02-26 01:18 | Inpatient (IN) | payer MEDICARE, OTHER ==
[2022-02-26 02:04] VITALS: BMI 29.2
[2022-02-26 05:23] LABS: BASO % 0.9 % (0-2.0); EOS % 4.7 % (0-4.5); HEMATOCRIT 32.9 % (35.4-49); HEMOGLOBIN 10.7 GM/dL (11.7-16.9); LYMPH % 18.3 % (8-40); MCH 28.5 pg (25.7-33.7); MCHC 32.5 g/dl (32.0-35.9); MEAN CELL VOLUME 87.6 fl (80-96); MEAN PLT VOLUME 11.2 fl (7.5-11.1); MONO % 10.5 % (3.8-10.2); NEUT % 65.6 % (42.8-82.8); PLATELET COUNT 126 10^3/uL (134-434); RBC 3.75 M/mm3 (4.00-5.60); RDW 15.5 % (11.9-15.9); WHITE BLOOD COUNT 8.6 K/mm3 (4.0-10.0)
[2022-02-26 05:41] LABS: BLOOD UREA NITROGEN 46.8 mg/dL (7-18)
[2022-02-26 05:46] LABS: BILIRUBIN,TOTAL 0.5 mg/dL (0.2-1); TOT PROT 7.4 g/dl (6.4-8.2)
[2022-02-26 06:00] LABS: INR 0.98 (0.83-1.09); PROTHROMBIN TIME (PATIENT) 11.3 SEC (9.7-13.0)
[2022-02-26 06:02] LABS: ACTIVATED PTT 38.8 SECONDS (25.2-36.5)
[2022-02-26 07:08] LABS: CALCIUM 8.6 mg/dL (8.5-10.1)
[2022-02-26 07:09] LABS: ALBUMIN 3.7 g/dl (3.4-5.0)
[2022-02-26 07:12] LABS: CREATININE 6.3 mg/dL (0.55-1.3)
[2022-02-26] MEDS ORDERED: FUROSEMIDE 40 MG TABLET (FP) PO SCH (10:00)
[2022-02-26] MEDS ORDERED: amLODIPine BESYLATE 10 MG TABLET (FP) PO SCH (10:00)
[2022-02-26] MEDS ORDERED: LABETALOL HCL 100 MG TABLET (FP) PO SCH (10:00)
[2022-02-26] MEDS ORDERED: hydrALAZINE HCL 50 MG TABLET (FP) PO SCH (10:00)
[2022-02-26] MEDS ORDERED: INSULIN SLIDING SCALE (NOVOLOG) 1 VIAL SQ SCH (11:00)
[2022-02-26] MEDS ORDERED: amLODIPine BESYLATE 10 MG TABLET (FP) ONE (11:21)
[2022-02-26] MEDS ORDERED: SODIUM CHLORIDE 250 ML IV PRN (11:57)
[2022-02-26] MEDS ORDERED: EPOETIN ALFA-EPBX 4,000 UNIT/ML VIAL IVPUSH ONE (13:00)
[2022-02-26] MEDS ORDERED: HEPARIN NA (PORCINE) 5,000 UNITS/ML 1ML VIAL SQ SCH (14:00)
[2022-02-26 15:48] VITALS: BP 158/76; PULSE 89; RESP 16; TEMP 98
== END 2022-02-26 16:00 | disposition home or self-care (01) | DRG 698 ==
LOC: JER 01:18 → JERBED 06:34
PROVIDERS: ADMIT Internal Medicine; ATTEND Internal Medicine
PROC: 0T25X0Z Change Drainage Device in Kidney, External Approach (ICD-10-PCS; principal; 2022-02-26)
PROC: 5A1D70Z Performance of Urinary Filtration, Intermittent, Less than 6 Hours Per Day (ICD-10-PCS; 2022-02-26)
DX: T83.022A Displacement of nephrostomy catheter, initial encounter (principal); N18.6 End stage renal disease; I12.0 Hypertensive chronic kidney disease with stage 5 chronic kidney disease or end stage renal disease; Z99.2 Dependence on renal dialysis; Y83.9 Surgical procedure, unspecified as the cause of abnormal reaction of the patient, or of later complication, without mention of misadventure at the time of the procedure; E11.22 Type 2 diabetes mellitus with diabetic chronic kidney disease; K21.9 Gastro-esophageal reflux disease without esophagitis; I25.10 Atherosclerotic heart disease of native coronary artery without angina pectoris; Z98.61 Coronary angioplasty status
CPT/HCPCS: 0241U-QW; 36415; 50435; 71045-TC-FY; 80053; 82962; 85025; 85610; 85730; 86803; 86850; 86900; 86901; 87340; 93005; 93010; 99285-25; Q5106

== ENCOUNTER 2022-03-05 16:11 | Observation (INO) | payer MEDICARE, OTHER ==
[2022-03-05] MEDS ORDERED: ASPIRIN 81 MG CHEWABLE TABLETS PO ONE (18:14)
[2022-03-05] MEDS ORDERED: ASPIRIN 81 MG CHEWABLE TABLETS ONE (18:21)
[2022-03-05 18:41] LABS: BASO % 0.9 % (0-2.0); EOS % 5.2 % (0-4.5); HEMATOCRIT 34.2 % (35.4-49); HEMOGLOBIN 11.3 GM/dL (11.7-16.9); MCH 29.3 pg (25.7-33.7); MEAN CELL VOLUME 88.6 fl (80-96); MEAN PLT VOLUME 10.8 fl (7.5-11.1); MONO % 9.9 % (3.8-10.2); PLATELET COUNT 144 10^3/uL (134-434); RBC 3.86 M/mm3 (4.00-5.60); RDW 15.2 % (11.9-15.9); WHITE BLOOD COUNT 8.3 K/mm3 (4.0-10.0)
[2022-03-05 18:46] LABS: INR 0.99 (0.83-1.09); PROTHROMBIN TIME (PATIENT) 11.4 SEC (9.7-13.0)
[2022-03-05 18:49] LABS: ACTIVATED PTT 40.2 SECONDS (25.2-36.5)
[2022-03-05 19:03] LABS: CALCIUM 9.1 mg/dL (8.5-10.1)
[2022-03-05 19:04] LABS: BLOOD UREA NITROGEN 22.5 mg/dL (7-18); MAGNESIUM 2.2 mg/dL (1.8-2.4)
[2022-03-05 19:07] LABS: CREATININE 3.7 mg/dL (0.55-1.3); PHOSPHOROUS 2.8 mg/dL (2.5-4.9)
[2022-03-05 19:08] LABS: BILIRUBIN,TOTAL 0.4 mg/dL (0.2-1)
[2022-03-06] MEDS ORDERED: HEPARIN NA (PORCINE) 5,000 UNITS/ML 1ML VIAL ONE ×2 (06:15→14:13)
[2022-03-06] MEDS: HEPARIN NA (PORCINE) 5,000 UNITS/ML 1ML VIAL SQ SCH ×3 (06:18→22:36)
[2022-03-06 06:24] LABS: BASO % 1.1 % (0-2.0); EOS % 5.6 % (0-4.5); HEMATOCRIT 37.1 % (35.4-49); LYMPH % 21.2 % (8-40); MCH 28.5 pg (25.7-33.7); MCHC 32.3 g/dl (32.0-35.9); MEAN PLT VOLUME 10.3 fl (7.5-11.1); MONO % 9.7 % (3.8-10.2); NEUT % 62.4 % (42.8-82.8); PLATELET COUNT 139 10^3/uL (134-434); RBC 4.21 M/mm3 (4.00-5.60); RDW 15.2 % (11.9-15.9); WHITE BLOOD COUNT 7.4 K/mm3 (4.0-10.0)
[2022-03-06 06:48] LABS: ALBUMIN 3.7 g/dl (3.4-5.0); CALCIUM 8.6 mg/dL (8.5-10.1)
[2022-03-06 06:51] LABS: CREATININE 4.8 mg/dL (0.55-1.3)
[2022-03-06 06:52] LABS: PHOSPHOROUS 4.3 mg/dL (2.5-4.9)
[2022-03-06 06:53] LABS: BILIRUBIN,TOTAL 0.4 mg/dL (0.2-1); CHOLESTEROL 129 mg/dL (50-200); TOT PROT 7.6 g/dl (6.4-8.2); TRIGLYCERIDES 203 mg/dL (0-150)
[2022-03-06 06:54] LABS: LDL CHOLESTEROL (ONLY SJRH) 63 mg/dL (5-100)
[2022-03-06] MEDS: INSULIN SLIDING SCALE (NOVOLOG) 1 VIAL SQ SCH ×4 (06:54→22:48)
[2022-03-06 06:56] LABS: HDL CHOLESTEROL 33 mg/dL (40-60)
[2022-03-06] MEDS ORDERED: ASPIRIN 81 MG CHEWABLE TABLETS ONE (09:05)
[2022-03-06] MEDS: ASPIRIN 81 MG CHEWABLE TABLETS PO SCH (09:07)
[2022-03-06] MEDS ORDERED: LABETALOL HCL 100 MG TABLET (FP) ONE (10:44)
[2022-03-06] MEDS: LABETALOL HCL 200 MG TABLET (FP) PO SCH ×2 (10:50→22:38)
[2022-03-06] MEDS ORDERED: hydrALAZINE HCL 50 MG TABLET (FP) ONE (14:13)
[2022-03-06] MEDS: hydrALAZINE HCL 50 MG TABLET (FP) PO SCH ×2 (14:19→22:35)
[2022-03-06] MEDS ORDERED: PATIENT'S OWN MEDICATION (NON-FORMULARY) (Hydralazine Hcl [Hydralazine Hcl] 100 MG Tablet) PO SCH (22:00)
[2022-03-06] MEDS: ATORVASTATIN CA 40 MG TABLET (FP) PO SCH (22:37)
[2022-03-06] MEDS: GABAPENTIN 300 MG CAPSULE PO SCH (22:37)
[2022-03-06] MEDS: MIRTAZAPINE 15 MG TABLET (FP) PO SCH (22:38)
[2022-03-06] MEDS: SODIUM BICARBONATE 650 MG TABLET PO SCH (22:39)
[2022-03-07] MEDS: LATANOPROST 0.005% OPHTH SOLN 2.5ML BOTTLE OU SCH ×2 (02:10→21:32)
[2022-03-07] MEDS: HEPARIN NA (PORCINE) 5,000 UNITS/ML 1ML VIAL SQ SCH ×3 (06:36→21:24)
[2022-03-07] MEDS: INSULIN SLIDING SCALE (NOVOLOG) 1 VIAL SQ SCH ×4 (06:37→21:24)
[2022-03-07] MEDS: SODIUM BICARBONATE 650 MG TABLET PO SCH ×3 (06:37→21:23)
[2022-03-07] MEDS: DULoxetine HCL 30 MG CAPSULE.DR PO SCH (09:18)
[2022-03-07] MEDS: hydrALAZINE HCL 50 MG TABLET (FP) PO SCH ×2 (09:18→21:23)
[2022-03-07] MEDS: ASPIRIN 81 MG CHEWABLE TABLETS PO SCH (09:18)
[2022-03-07] MEDS: LABETALOL HCL 200 MG TABLET (FP) PO SCH ×2 (09:18→21:24)
[2022-03-07] MEDS: GABAPENTIN 300 MG CAPSULE PO SCH ×2 (09:18→21:23)
[2022-03-07] MEDS ORDERED: SODIUM CHLORIDE 250 ML IV PRN (12:21)
[2022-03-07] MEDS: ATORVASTATIN CA 40 MG TABLET (FP) PO SCH (21:23)
[2022-03-07] MEDS: MIRTAZAPINE 15 MG TABLET (FP) PO SCH (21:23)
[2022-03-08] MEDS: INSULIN SLIDING SCALE (NOVOLOG) 1 VIAL SQ SCH ×3 (06:12→17:47)
[2022-03-08] MEDS: SODIUM BICARBONATE 650 MG TABLET PO SCH ×2 (06:12→14:46)
[2022-03-08] MEDS: HEPARIN NA (PORCINE) 5,000 UNITS/ML 1ML VIAL SQ SCH ×2 (06:12→14:46)
[2022-03-08 07:27] LABS: EOS % 6.7 % (0-4.5); HEMATOCRIT 33.3 % (35.4-49); HEMOGLOBIN 11.1 GM/dL (11.7-16.9); LYMPH % 26.5 % (8-40); MCH 29.5 pg (25.7-33.7); MCHC 33.2 g/dl (32.0-35.9); MEAN CELL VOLUME 88.9 fl (80-96); MEAN PLT VOLUME 10.9 fl (7.5-11.1); NEUT % 57.8 % (42.8-82.8); PLATELET COUNT 134 10^3/uL (134-434); RBC 3.75 M/mm3 (4.00-5.60); RDW 15.3 % (11.9-15.9); WHITE BLOOD COUNT 6.5 K/mm3 (4.0-10.0)
[2022-03-08 07:43] LABS: ALBUMIN 3.4 g/dl (3.4-5.0); CALCIUM 8.2 mg/dL (8.5-10.1); MAGNESIUM 2.3 mg/dL (1.8-2.4)
[2022-03-08 07:46] LABS: PHOSPHOROUS 4.7 mg/dL (2.5-4.9)
[2022-03-08 07:48] LABS: BILIRUBIN,TOTAL 0.4 mg/dL (0.2-1); TOT PROT 6.9 g/dl (6.4-8.2)
[2022-03-08 07:57] LABS: BLOOD UREA NITROGEN 64.3 mg/dL (7-18)
[2022-03-08 08:25] VITALS: RESP 18
[2022-03-08 10:28] VITALS: BMI 42.5
[2022-03-08] MEDS ORDERED: REGADENOSON 0.4 MG/5 ML PRE-FILLED SYRINGE IVPUSH ONE ×2 (12:15→13:06)
[2022-03-08] MEDS: LABETALOL HCL 200 MG TABLET (FP) PO SCH (14:44)
[2022-03-08] MEDS: ASPIRIN 81 MG CHEWABLE TABLETS PO SCH (14:45)
[2022-03-08] MEDS: GABAPENTIN 300 MG CAPSULE PO SCH (14:45)
[2022-03-08] MEDS: hydrALAZINE HCL 50 MG TABLET (FP) PO SCH (14:45)
[2022-03-08] MEDS: DULoxetine HCL 30 MG CAPSULE.DR PO SCH (14:45)
[2022-03-08 18:07] VITALS: BP 151/73; PULSE 74; TEMP 98.6
== END 2022-03-08 18:25 | disposition home or self-care (01) ==
LOC: JER 16:11 → JERBED 16:52 → J4W 03-06 21:38
PROVIDERS: ADMIT Internal Medicine; ATTEND Internal Medicine
PROC: 3E033GC Introduction of Other Therapeutic Substance into Peripheral Vein, Percutaneous Approach (ICD-10-PCS; principal; 2022-03-05)
PROC: 3E013VG Introduction of Insulin into Subcutaneous Tissue, Percutaneous Approach (ICD-10-PCS; 2022-03-05)
PROC: 3E013GC Introduction of Other Therapeutic Substance into Subcutaneous Tissue, Percutaneous Approach (ICD-10-PCS; 2022-03-05)
DX: R07.89 Other chest pain (principal); E11.22 Type 2 diabetes mellitus with diabetic chronic kidney disease; I12.0 Hypertensive chronic kidney disease with stage 5 chronic kidney disease or end stage renal disease; N18.6 End stage renal disease; Z99.2 Dependence on renal dialysis; Z87.891 Personal history of nicotine dependence; Z79.4 Long term (current) use of insulin; I25.10 Atherosclerotic heart disease of native coronary artery without angina pectoris; I25.2 Old myocardial infarction; Z85.46 Personal history of malignant neoplasm of prostate; D64.9 Anemia, unspecified; J45.909 Unspecified asthma, uncomplicated; K21.9 Gastro-esophageal reflux disease without esophagitis; E78.5 Hyperlipidemia, unspecified; Z86.16 Personal history of COVID-19; Z90.5 Acquired absence of kidney; Z95.5 Presence of coronary angioplasty implant and graft; Z92.3 Personal history of irradiation; Z88.8 Allergy status to other drugs, medicaments and biological substances; Z79.82 Long term (current) use of aspirin; Z96.0 Presence of urogenital implants
CPT/HCPCS: 0241U-QW; 36415; 71046-TC-FY; 78452-TC; 80053; 80061; 82962; 83735; 84100; 84443; 84484; 85025; 85610; 85730; 93005; 93010; 93017; 93306-TC; 96372; 96374; 99285-25; A9502; G0378; J1644; J2785

== ENCOUNTER 2022-05-09 13:18 | Inpatient (IN) | payer MEDICARE, OTHER ==
[2022-05-09 13:28] VITALS: BMI 28.8
[2022-05-09 15:37] LABS: BASO % 0.7 % (0-2.0); EOS % 1.3 % (0-4.5); HEMATOCRIT 34.4 % (35.4-49); LYMPH % 10.1 % (8-40); MEAN CELL VOLUME 87.3 fl (80-96); MEAN PLT VOLUME 11.6 fl (7.5-11.1); MONO % 7.8 % (3.8-10.2); NEUT % 80.1 % (42.8-82.8); PLATELET COUNT 120 10^3/uL (134-434); RBC 3.94 M/mm3 (4.00-5.60); RDW 15.8 % (11.9-15.9); WHITE BLOOD COUNT 11.9 K/mm3 (4.0-10.0)
[2022-05-09 15:39] LABS: INR 0.97 (0.83-1.09); PROTHROMBIN TIME (PATIENT) 11.2 SEC (9.7-13.0)
[2022-05-09 15:42] LABS: ACTIVATED PTT 35.2 SECONDS (25.2-36.5)
[2022-05-09 15:56] LABS: CALCIUM 8.4 mg/dL (8.5-10.1)
[2022-05-09 15:57] LABS: ALBUMIN 3.5 g/dl (3.4-5.0); BLOOD UREA NITROGEN 50.6 mg/dL (7-18)
[2022-05-09 16:00] LABS: CREATININE 6.1 mg/dL (0.55-1.3)
[2022-05-09 16:02] LABS: BILIRUBIN,TOTAL 0.6 mg/dL (0.2-1); TOT PROT 7.5 g/dl (6.4-8.2)
[2022-05-09] MEDS ORDERED: PIPERACILLIN/TAZOB 2.25 GM 2.25 GM in DEXTROSE 5%-WATER - 50 ML IVPB ONE (16:11)
[2022-05-09] MEDS ORDERED: PIPERACILLIN/TAZOB 4.5 GM 4.5 GM/100 ML BAG IVPB ONE (16:43)
[2022-05-09 19:40] LABS: EPI CELLS 0 /uL (0-25.1); HYALINE CASTS 0 /uL (0-3.1); PH,URINE 8.5 (5.0-8.0); URINE APPEARANCE CLEAR; URINE BACTERIA >9,000 /uL (0-1359); URINE BILIRUBIN NEGATIVE (NEGATIVE); URINE COLOR YELLOW; URINE GLUCOSE (UA) NEGATIVE (NEGATIVE); URINE KETONE NEGATIVE (NEGATIVE); URINE LEUK ESTERASE 3+ (NEGATIVE); URINE NITRITE NEGATIVE (NEGATIVE); URINE PROTEIN 3+ (NEGATIVE); URINE RBC 95 /uL (0-23.9); URINE UROBILINOGEN 0.2 mg/dL (0.2-1.0); URINE WBC 315 /uL (0-25.8)
[2022-05-09] MEDS ORDERED: MEROPENEM 1 GM in DEXTROSE 5%-WATER 100 ML IVPB ONE (21:28)
[2022-05-09] MEDS ORDERED: MEROPENEM 1 GM VIAL (RESTRICTED TO ID) IVPB ONE (21:49)
[2022-05-09] MEDS ORDERED: MIRTAZAPINE 15 MG TABLET (FP) ONE (21:49)
[2022-05-09] MEDS ORDERED: GABAPENTIN 300 MG CAPSULE ONE (21:49)
[2022-05-09] MEDS ORDERED: hydrALAZINE HCL 50 MG TABLET (FP) ONE (21:49)
[2022-05-09] MEDS ORDERED: LABETALOL HCL 100 MG TABLET (FP) ONE (21:49)
[2022-05-09] MEDS ORDERED: ATORVASTATIN CA 40 MG TABLET (FP) ONE (21:49)
[2022-05-09] MEDS ORDERED: HEPARIN NA (PORCINE) 5,000 UNITS/ML 1ML VIAL ONE (21:50)
[2022-05-09] MEDS: ATORVASTATIN CA 40 MG TABLET (FP) PO SCH (22:03)
[2022-05-09] MEDS: HEPARIN NA (PORCINE) 5,000 UNITS/ML 1ML VIAL SQ SCH (22:03)
[2022-05-09] MEDS: GABAPENTIN 300 MG CAPSULE PO SCH (22:03)
[2022-05-09] MEDS: LABETALOL HCL 200 MG TABLET (FP) PO SCH (22:03)
[2022-05-09] MEDS: MIRTAZAPINE 15 MG TABLET (FP) PO SCH (22:03)
[2022-05-09] MEDS: hydrALAZINE HCL 50 MG TABLET (FP) PO SCH (22:03)
[2022-05-10] MEDS ORDERED: FUROSEMIDE 40 MG TABLET (FP) ONE (06:44)
[2022-05-10] MEDS ORDERED: HEPARIN NA (PORCINE) 5,000 UNITS/ML 1ML VIAL ONE (06:45)
[2022-05-10] MEDS: FUROSEMIDE 40 MG TABLET (FP) PO SCH ×2 (06:50→16:45)
[2022-05-10] MEDS: HEPARIN NA (PORCINE) 5,000 UNITS/ML 1ML VIAL SQ SCH ×3 (06:50→21:46)
[2022-05-10] MEDS ORDERED: ACETAMINOPHEN INJECTION 100 ML IVPB ONE (07:41)
[2022-05-10 07:52] LABS: BASO % 0.5 % (0-2.0); EOS % 0.5 % (0-4.5); HEMOGLOBIN 10.4 GM/dL (11.7-16.9); LYMPH % 9.2 % (8-40); MCH 28.3 pg (25.7-33.7); MCHC 32.5 g/dl (32.0-35.9); MEAN CELL VOLUME 86.9 fl (80-96); MEAN PLT VOLUME 11.7 fl (7.5-11.1); MONO % 10.6 % (3.8-10.2); NEUT % 79.2 % (42.8-82.8); PLATELET COUNT 108 10^3/uL (134-434); RBC 3.68 M/mm3 (4.00-5.60); RDW 16.5 % (11.9-15.9); WHITE BLOOD COUNT 11.5 K/mm3 (4.0-10.0)
[2022-05-10 08:13] LABS: MAGNESIUM 2.1 mg/dL (1.8-2.4)
[2022-05-10 08:17] LABS: PHOSPHOROUS 2.9 mg/dL (2.5-4.9)
[2022-05-10] MEDS: ACETAMINOPHEN 325 MG TABLET (FP) PO PRN ×2 (08:17→22:02)
[2022-05-10] MEDS ORDERED: LABETALOL HCL 100 MG TABLET (FP) ONE ×2 (09:17→09:19)
[2022-05-10] MEDS ORDERED: hydrALAZINE HCL 50 MG TABLET (FP) ONE (09:18)
[2022-05-10] MEDS ORDERED: amLODIPine BESYLATE 10 MG TABLET (FP) ONE (09:18)
[2022-05-10] MEDS ORDERED: GABAPENTIN 300 MG CAPSULE ONE (09:18)
[2022-05-10] MEDS ORDERED: ASPIRIN 81 MG CHEWABLE TABLETS ONE (09:18)
[2022-05-10] MEDS ORDERED: DULoxetine HCL 30 MG CAPSULE.DR PO ONE (09:18)
[2022-05-10] MEDS: hydrALAZINE HCL 50 MG TABLET (FP) PO SCH ×2 (09:32→21:49)
[2022-05-10] MEDS: ASPIRIN 81 MG CHEWABLE TABLETS PO SCH (09:32)
[2022-05-10] MEDS: GABAPENTIN 300 MG CAPSULE PO SCH ×2 (09:32→21:49)
[2022-05-10] MEDS: DULoxetine HCL 30 MG CAPSULE.DR PO SCH (09:32)
[2022-05-10] MEDS: amLODIPine BESYLATE 10 MG TABLET (FP) PO SCH (09:32)
[2022-05-10] MEDS: LABETALOL HCL 200 MG TABLET (FP) PO SCH ×2 (09:32→21:50)
[2022-05-10] MEDS ORDERED: MEROPENEM 1 GM in DEXTROSE 5%-WATER 100 ML IVPB SCH (10:00)
[2022-05-10] MEDS ORDERED: EPOETIN ALFA-EPBX 10,000 UNIT/ML VIAL SQ ONE (10:39)
[2022-05-10] MEDS ORDERED: SODIUM CHLORIDE 250 ML IV PRN (11:32)
[2022-05-10] MEDS ORDERED: EPOETIN ALFA-EPBX 4,000 UNIT/ML VIAL IVPUSH ONE (11:45)
[2022-05-10] MEDS: MIRTAZAPINE 15 MG TABLET (FP) PO SCH (21:48)
[2022-05-10] MEDS: ATORVASTATIN CA 40 MG TABLET (FP) PO SCH (21:49)
[2022-05-10] MEDS: MEROPENEM 500 MG in DEXTROSE 5%-WATER 100 ML IVPB SCH (21:50)
[2022-05-11] MEDS: HEPARIN NA (PORCINE) 5,000 UNITS/ML 1ML VIAL SQ SCH ×3 (06:04→21:38)
[2022-05-11] MEDS: FUROSEMIDE 40 MG TABLET (FP) PO SCH ×2 (06:04→13:55)
[2022-05-11 08:36] LABS: INR 1.11 (0.83-1.09); PROTHROMBIN TIME (PATIENT) 12.8 SEC (9.7-13.0)
[2022-05-11 08:39] LABS: ACTIVATED PTT 32.8 SECONDS (25.2-36.5)
[2022-05-11 08:50] LABS: BASO % 0.6 % (0-2.0); EOS % 0.9 % (0-4.5); HEMATOCRIT 30.4 % (35.4-49); HEMOGLOBIN 9.9 GM/dL (11.7-16.9); LYMPH % 8.8 % (8-40); MCH 28.4 pg (25.7-33.7); MCHC 32.5 g/dl (32.0-35.9); MEAN CELL VOLUME 87.4 fl (80-96); MEAN PLT VOLUME 11.8 fl (7.5-11.1); MONO % 11.6 % (3.8-10.2); NEUT % 78.1 % (42.8-82.8); PLATELET COUNT 102 10^3/uL (134-434); RBC 3.48 M/mm3 (4.00-5.60); RDW 15.9 % (11.9-15.9); WHITE BLOOD COUNT 10.4 K/mm3 (4.0-10.0)
[2022-05-11 09:09] LABS: ALBUMIN 2.8 g/dl (3.4-5.0); BLOOD UREA NITROGEN 30.7 mg/dL (7-18); CALCIUM 8.2 mg/dL (8.5-10.1)
[2022-05-11 09:12] LABS: CREATININE 4.9 mg/dL (0.55-1.3)
[2022-05-11 09:14] LABS: BILIRUBIN,TOTAL 0.6 mg/dL (0.2-1); TOT PROT 6.8 g/dl (6.4-8.2)
[2022-05-11] MEDS: GABAPENTIN 300 MG CAPSULE PO SCH ×2 (09:36→21:38)
[2022-05-11] MEDS: DULoxetine HCL 30 MG CAPSULE.DR PO SCH (09:36)
[2022-05-11] MEDS: hydrALAZINE HCL 50 MG TABLET (FP) PO SCH ×2 (09:36→21:37)
[2022-05-11] MEDS: LABETALOL HCL 200 MG TABLET (FP) PO SCH ×2 (09:36→21:38)
[2022-05-11] MEDS: MEROPENEM 500 MG in DEXTROSE 5%-WATER 100 ML IVPB SCH ×2 (09:37→21:38)
[2022-05-11] MEDS: amLODIPine BESYLATE 10 MG TABLET (FP) PO SCH (09:37)
[2022-05-11] MEDS: ASPIRIN 81 MG CHEWABLE TABLETS PO SCH (09:37)
[2022-05-11] MEDS ORDERED: MEROPENEM 1 GM in DEXTROSE 5%-WATER 100 ML IVPB SCH (10:00)
[2022-05-11] MEDS: INSULIN SLIDING SCALE (NOVOLOG) 1 VIAL SQ SCH ×3 (11:43→21:42)
[2022-05-11] MEDS: MIRTAZAPINE 15 MG TABLET (FP) PO SCH (21:37)
[2022-05-11] MEDS: ATORVASTATIN CA 40 MG TABLET (FP) PO SCH (21:37)
[2022-05-12] MEDS: INSULIN SLIDING SCALE (NOVOLOG) 1 VIAL SQ SCH ×4 (06:01→22:44)
[2022-05-12] MEDS: FUROSEMIDE 40 MG TABLET (FP) PO SCH ×2 (06:01→14:15)
[2022-05-12] MEDS: HEPARIN NA (PORCINE) 5,000 UNITS/ML 1ML VIAL SQ SCH ×3 (06:01→22:44)
[2022-05-12 07:51] LABS: BASO % 0.6 % (0-2.0); EOS % 4.5 % (0-4.5); HEMATOCRIT 29.5 % (35.4-49); HEMOGLOBIN 9.5 GM/dL (11.7-16.9); MCH 28.2 pg (25.7-33.7); MCHC 32.2 g/dl (32.0-35.9); MEAN CELL VOLUME 87.7 fl (80-96); MEAN PLT VOLUME 11.9 fl (7.5-11.1); MONO % 12.7 % (3.8-10.2); NEUT % 67.2 % (42.8-82.8); PLATELET COUNT 101 10^3/uL (134-434); RBC 3.36 M/mm3 (4.00-5.60); RDW 15.6 % (11.9-15.9); WHITE BLOOD COUNT 7.7 K/mm3 (4.0-10.0)
[2022-05-12] MEDS ORDERED: SODIUM CHLORIDE 250 ML IV PRN (08:00)
[2022-05-12] MEDS ORDERED: EPOETIN ALFA-EPBX 10,000 UNIT/ML VIAL SQ ONE (08:00)
[2022-05-12 08:13] LABS: INR 0.96 (0.83-1.09)
[2022-05-12 08:15] LABS: ACTIVATED PTT 34.1 SECONDS (25.2-36.5)
[2022-05-12 08:21] LABS: ALBUMIN 2.7 g/dl (3.4-5.0)
[2022-05-12 08:22] LABS: BLOOD UREA NITROGEN 54.5 mg/dL (7-18)
[2022-05-12 08:23] LABS: CALCIUM 8.1 mg/dL (8.5-10.1)
[2022-05-12 08:24] LABS: CREATININE 6.2 mg/dL (0.55-1.3)
[2022-05-12 08:26] LABS: BILIRUBIN,TOTAL 0.4 mg/dL (0.2-1); TOT PROT 6.3 g/dl (6.4-8.2)
[2022-05-12] MEDS: hydrALAZINE HCL 50 MG TABLET (FP) PO SCH ×2 (12:37→22:46)
[2022-05-12] MEDS: ASPIRIN 81 MG CHEWABLE TABLETS PO SCH (12:37)
[2022-05-12] MEDS: MEROPENEM 500 MG in DEXTROSE 5%-WATER 100 ML IVPB SCH ×2 (12:38→22:45)
[2022-05-12] MEDS: GABAPENTIN 300 MG CAPSULE PO SCH ×2 (12:38→22:45)
[2022-05-12] MEDS: DULoxetine HCL 30 MG CAPSULE.DR PO SCH (12:38)
[2022-05-12] MEDS: amLODIPine BESYLATE 10 MG TABLET (FP) PO SCH (12:39)
[2022-05-12] MEDS: LABETALOL HCL 200 MG TABLET (FP) PO SCH ×2 (12:39→22:46)
[2022-05-12] MEDS: ACETAMINOPHEN 325 MG TABLET (FP) PO PRN (14:20)
[2022-05-12] MEDS ORDERED: SOD BORATE/BORIC AC/WATER/NACL (EYE WASH) 118 ML BOTTLE OU ONE (20:50)
[2022-05-12] MEDS ORDERED: ARTIFICIAL TEARS (POLYVINYL ALCOHOL) OPTH DROPS OU PRN (22:22)
[2022-05-12] MEDS: MIRTAZAPINE 15 MG TABLET (FP) PO SCH (22:45)
[2022-05-12] MEDS: ATORVASTATIN CA 40 MG TABLET (FP) PO SCH (22:46)
[2022-05-13] MEDS: INSULIN SLIDING SCALE (NOVOLOG) 1 VIAL SQ SCH ×2 (06:29→11:27)
[2022-05-13] MEDS: HEPARIN NA (PORCINE) 5,000 UNITS/ML 1ML VIAL SQ SCH ×2 (06:29→14:13)
[2022-05-13] MEDS: FUROSEMIDE 40 MG TABLET (FP) PO SCH ×2 (06:29→14:13)
[2022-05-13 07:38] LABS: BASO % 0.7 % (0-2.0); EOS % 6.3 % (0-4.5); HEMATOCRIT 30.3 % (35.4-49); HEMOGLOBIN 9.9 GM/dL (11.7-16.9); LYMPH % 20.1 % (8-40); MCH 28.3 pg (25.7-33.7); MCHC 32.6 g/dl (32.0-35.9); MEAN CELL VOLUME 86.7 fl (80-96); MEAN PLT VOLUME 10.8 fl (7.5-11.1); MONO % 11.2 % (3.8-10.2); NEUT % 61.7 % (42.8-82.8); PLATELET COUNT 116 10^3/uL (134-434); RBC 3.49 M/mm3 (4.00-5.60); RDW 15.8 % (11.9-15.9); WHITE BLOOD COUNT 7.1 K/mm3 (4.0-10.0)
[2022-05-13 07:48] LABS: INR 0.96 (0.83-1.09)
[2022-05-13 07:50] LABS: ACTIVATED PTT 35.9 SECONDS (25.2-36.5)
[2022-05-13 07:58] LABS: ALBUMIN 2.8 g/dl (3.4-5.0); BLOOD UREA NITROGEN 31.7 mg/dL (7-18); CALCIUM 8.3 mg/dL (8.5-10.1)
[2022-05-13 08:03] LABS: BILIRUBIN,TOTAL 0.4 mg/dL (0.2-1); TOT PROT 6.7 g/dl (6.4-8.2)
[2022-05-13 08:04] LABS: CREATININE 4.6 mg/dL (0.55-1.3)
[2022-05-13] MEDS: DULoxetine HCL 30 MG CAPSULE.DR PO SCH (09:46)
[2022-05-13] MEDS: ASPIRIN 81 MG CHEWABLE TABLETS PO SCH (09:46)
[2022-05-13] MEDS: MEROPENEM 500 MG in DEXTROSE 5%-WATER 100 ML IVPB SCH (09:47)
[2022-05-13] MEDS: LABETALOL HCL 200 MG TABLET (FP) PO SCH (09:47)
[2022-05-13] MEDS: amLODIPine BESYLATE 10 MG TABLET (FP) PO SCH (09:47)
[2022-05-13] MEDS: hydrALAZINE HCL 50 MG TABLET (FP) PO SCH (09:47)
[2022-05-13] MEDS: GABAPENTIN 300 MG CAPSULE PO SCH (09:47)
[2022-05-13] MEDS ORDERED: EPOETIN ALFA-EPBX 10,000 UNIT/ML VIAL IVPUSH ONE (09:55)
[2022-05-13] MEDS ORDERED: SODIUM CHLORIDE 250 ML IV PRN (09:55)
[2022-05-13 10:03] VITALS: TEMP 97.7
[2022-05-13 14:11] VITALS: BP 139/68; PULSE 76; RESP 18
== END 2022-05-13 16:16 | disposition home or self-care (01) | DRG 698 ==
LOC: JER 13:18 → JERBED 18:22 → J4S 05-10 15:53
PROVIDERS: ADMIT Internal Medicine; ATTEND Internal Medicine
PROC: 5A1D70Z Performance of Urinary Filtration, Intermittent, Less than 6 Hours Per Day (ICD-10-PCS; principal; 2022-05-12)
DX: T83.511A Infection and inflammatory reaction due to indwelling urethral catheter, initial encounter (principal); N18.6 End stage renal disease; N10 Acute pyelonephritis; I12.0 Hypertensive chronic kidney disease with stage 5 chronic kidney disease or end stage renal disease; K57.92 Diverticulitis of intestine, part unspecified, without perforation or abscess without bleeding; N39.0 Urinary tract infection, site not specified; E11.22 Type 2 diabetes mellitus with diabetic chronic kidney disease; Z99.2 Dependence on renal dialysis; K21.9 Gastro-esophageal reflux disease without esophagitis; E78.5 Hyperlipidemia, unspecified; I95.9 Hypotension, unspecified; D64.9 Anemia, unspecified; R31.9 Hematuria, unspecified; Y83.9 Surgical procedure, unspecified as the cause of abnormal reaction of the patient, or of later complication, without mention of misadventure at the time of the procedure; I25.10 Atherosclerotic heart disease of native coronary artery without angina pectoris; Z95.5 Presence of coronary angioplasty implant and graft
CPT/HCPCS: 0241U-QW; 36415; 71045-TC-FY; 72131-TC; 74176-TC; 80053; 81003; 82550; 82553; 82962; 83036; 83605; 83735; 84100; 84484; 85025; 85610; 85730; 86803; 86850; 86900; 86901; 87040; 87086; 87186; 87340; 93005; 93010; 94761; 97116-GP; 97161-GP; 99285-25; J1644; Q5106

== ENCOUNTER → 2022-06-03 | Day surgery (SDC) | payer MEDICARE, OTHER | END | disposition home or self-care (01) | LOC: JRADIR 10:43 | PROVIDERS: ATTEND Urology | PROC: 0T25X0Z Change Drainage Device in Kidney, External Approach (ICD-10-PCS; principal; 2022-06-03) | DX: Z46.6 Encounter for fitting and adjustment of urinary device (principal) | CPT/HCPCS: 50435; C1729; C1769 ==

== ENCOUNTER 2022-06-05 08:48 | Emergency (ER) | payer MEDICARE, OTHER ==
[2022-06-05 09:29] VITALS: BMI 30.9
[2022-06-05 11:52] LABS: BASO % 1.2 % (0-2.0); EOS % 7.5 % (0-4.5); HEMATOCRIT 36.2 % (35.4-49); HEMOGLOBIN 11.7 GM/dL (11.7-16.9); LYMPH % 26.9 % (8-40); MCH 28.2 pg (25.7-33.7); MCHC 32.2 g/dl (32.0-35.9); MEAN CELL VOLUME 87.8 fl (80-96); MEAN PLT VOLUME 10.6 fl (7.5-11.1); MONO % 10.5 % (3.8-10.2); NEUT % 53.9 % (42.8-82.8); PLATELET COUNT 111 10^3/uL (134-434); RBC 4.13 M/mm3 (4.00-5.60); RDW 16.2 % (11.9-15.9); WHITE BLOOD COUNT 6.5 K/mm3 (4.0-10.0)
[2022-06-05] MEDS ORDERED: MECLIZINE HCL 25 MG TABLET (FP) PO ONE (11:55)
[2022-06-05 12:08] LABS: ALBUMIN 3.6 g/dl (3.4-5.0); BLOOD UREA NITROGEN 33.4 mg/dL (7-18); CALCIUM 9.4 mg/dL (8.5-10.1); MAGNESIUM 2.2 mg/dL (1.8-2.4)
[2022-06-05 12:11] LABS: CREATININE 4.7 mg/dL (0.55-1.3); PHOSPHOROUS 3.8 mg/dL (2.5-4.9)
[2022-06-05 12:12] LABS: BILIRUBIN,TOTAL 0.5 mg/dL (0.2-1); TOT PROT 8.3 g/dl (6.4-8.2)
[2022-06-05 12:22] VITALS: PULSE 74
[2022-06-05] MEDS ORDERED: MECLIZINE HCL 25 MG TABLET (FP) ONE (13:11)
[2022-06-05 13:29] VITALS: BP 114/75; RESP 16; TEMP 97.6
== END 2022-06-05 13:30 | disposition home or self-care (01) ==
LOC: JER 08:48
DX: I95.1 Orthostatic hypotension (principal)
CPT/HCPCS: 36415; 71045-TC-FY; 80053; 83735; 84100; 84484; 85025; 99284-25; C9803-CS; U0003; U0005

== ENCOUNTER 2022-07-06 16:33 | Inpatient (IN) | payer MEDICARE, OTHER ==
[2022-07-06 16:49] VITALS: BMI 30.9
[2022-07-06 18:09] LABS: BASO % 1.1 % (0-2.0); EOS % 3.7 % (0-4.5); HEMATOCRIT 30.2 % (35.4-49); HEMOGLOBIN 9.7 GM/dL (11.7-16.9); LYMPH % 13.2 % (8-40); MCHC 32.2 g/dl (32.0-35.9); MEAN CELL VOLUME 86.7 fl (80-96); MEAN PLT VOLUME 10.4 fl (7.5-11.1); MONO % 8.1 % (3.8-10.2); NEUT % 73.9 % (42.8-82.8); PLATELET COUNT 120 10^3/uL (134-434); RBC 3.48 M/mm3 (4.00-5.60); RDW 15.8 % (11.9-15.9); WHITE BLOOD COUNT 10.8 K/mm3 (4.0-10.0)
[2022-07-06 18:17] LABS: INR 0.98 (0.83-1.09); PROTHROMBIN TIME (PATIENT) 11.3 SEC (9.7-13.0)
[2022-07-06] MEDS ORDERED: SODIUM CHLORIDE 0.9% 500 ML INFUS.BAG IV ONE (18:19)
[2022-07-06 18:20] LABS: ACTIVATED PTT 36.7 SECONDS (25.2-36.5)
[2022-07-06 18:30] LABS: CHLORIDE 98 mmol/L (98-107); SODIUM 135 mmol/L (136-145)
[2022-07-06 18:33] LABS: ALBUMIN 3.6 g/dl (3.4-5.0); ANION GAP 9 MMOL/L (8-16); CALCIUM 8.5 mg/dL (8.5-10.1); CO2 28 mmol/L (21-32); MAGNESIUM 1.9 mg/dL (1.8-2.4)
[2022-07-06 18:36] LABS: CREATININE 5.3 mg/dL (0.55-1.3); PHOSPHOROUS 2.9 mg/dL (2.5-4.9); SGOT/AST 15 U/L (15-37); SGPT/ALT 21 U/L (13-61)
[2022-07-06 18:38] LABS: BILIRUBIN,TOTAL 0.4 mg/dL (0.2-1); TOT PROT 7.6 g/dl (6.4-8.2)
[2022-07-06 18:39] LABS: ALK PHOS 161 U/L (45-117)
[2022-07-06 18:47] LABS: GLUCOSE,RANDOM 402 mg/dL (74-106)
[2022-07-06] MEDS ORDERED: ACETAMINOPHEN 325 MG TABLET (FP) PO PRN (23:07)
[2022-07-06] MEDS ORDERED: DOCUSATE SODIUM 100 MG CAPSULE (FP) PO PRN (23:07)
[2022-07-06] MEDS ORDERED: LABETALOL HCL 100 MG TABLET (FP) ONE (23:54)
[2022-07-07] MEDS: GABAPENTIN 300 MG CAPSULE PO SCH ×2 (00:10→09:01)
[2022-07-07] MEDS: LABETALOL HCL 200 MG TABLET (FP) PO SCH ×2 (00:10→09:01)
[2022-07-07] MEDS: hydrALAZINE HCL 25 MG TABLET (FP) PO SCH ×2 (00:14→09:01)
[2022-07-07 05:50] LABS: BASO % 1.4 % (0-2.0); EOS % 4.5 % (0-4.5); HEMATOCRIT 28.9 % (35.4-49); HEMOGLOBIN 9.3 GM/dL (11.7-16.9); LYMPH % 19.6 % (8-40); MCH 28.1 pg (25.7-33.7); MCHC 32.3 g/dl (32.0-35.9); MEAN CELL VOLUME 86.9 fl (80-96); MEAN PLT VOLUME 10.3 fl (7.5-11.1); MONO % 8.7 % (3.8-10.2); NEUT % 65.8 % (42.8-82.8); PLATELET COUNT 118 10^3/uL (134-434); RBC 3.32 M/mm3 (4.00-5.60); RDW 15.8 % (11.9-15.9); WHITE BLOOD COUNT 7.8 K/mm3 (4.0-10.0)
[2022-07-07 06:10] LABS: CALCIUM 8.6 mg/dL (8.5-10.1)
[2022-07-07 06:11] LABS: BLOOD UREA NITROGEN 41.9 mg/dL (7-18)
[2022-07-07 06:14] LABS: CREATININE 5.5 mg/dL (0.55-1.3)
[2022-07-07 06:47] VITALS: PULSE 82
[2022-07-07] MEDS: INSULIN SLIDING SCALE (NOVOLOG) 1 VIAL SQ SCH ×3 (07:35→16:20)
[2022-07-07] MEDS ORDERED: LABETALOL HCL 100 MG TABLET (FP) ONE (08:58)
[2022-07-07] MEDS ORDERED: hydrALAZINE HCL 50 MG TABLET (FP) ONE (08:59)
[2022-07-07] MEDS ORDERED: GABAPENTIN 300 MG CAPSULE ONE (08:59)
[2022-07-07] MEDS ORDERED: SODIUM CHLORIDE 250 ML IV PRN (11:21)
[2022-07-07 13:49] VITALS: BP 173/79; RESP 20; TEMP 97.7
[2022-07-07] MEDS ORDERED: ATORVASTATIN CA 40 MG TABLET (FP) PO SCH (22:00)
== END 2022-07-07 17:30 | DRG 308 ==
LOC: JER 16:33 → JERBED 22:48
PROVIDERS: ADMIT Internal Medicine
DX: I47.1 Supraventricular tachycardia (principal); N18.6 End stage renal disease; I12.0 Hypertensive chronic kidney disease with stage 5 chronic kidney disease or end stage renal disease; I24.8 Other forms of acute ischemic heart disease; K21.9 Gastro-esophageal reflux disease without esophagitis; E78.00 Pure hypercholesterolemia, unspecified; I25.10 Atherosclerotic heart disease of native coronary artery without angina pectoris; E11.40 Type 2 diabetes mellitus with diabetic neuropathy, unspecified; E11.22 Type 2 diabetes mellitus with diabetic chronic kidney disease; Z99.2 Dependence on renal dialysis; K57.90 Diverticulosis of intestine, part unspecified, without perforation or abscess without bleeding; Z85.46 Personal history of malignant neoplasm of prostate; Z95.5 Presence of coronary angioplasty implant and graft
CPT/HCPCS: 0241U-QW; 36415; 71046-TC-FY; 71275-TC; 80048; 80053; 82962; 83735; 84100; 84439; 84443; 84484; 85025; 85610; 85730; 93005; 93010; 99285-25; Q9967

== ENCOUNTER 2022-07-20 01:47 | Emergency (ER) | payer MEDICARE, OTHER ==
[2022-07-20 01:52] VITALS: BMI 30.9
[2022-07-20 03:18] LABS: BASO % 0.8 % (0-2.0); EOS % 6.5 % (0-4.5); HEMATOCRIT 29.5 % (35.4-49); HEMOGLOBIN 9.6 GM/dL (11.7-16.9); LYMPH % 20.7 % (8-40); MCH 28.5 pg (25.7-33.7); MCHC 32.5 g/dl (32.0-35.9); MEAN CELL VOLUME 87.5 fl (80-96); MEAN PLT VOLUME 10.5 fl (7.5-11.1); MONO % 10.7 % (3.8-10.2); NEUT % 61.3 % (42.8-82.8); PLATELET COUNT 127 10^3/uL (134-434); RBC 3.37 M/mm3 (4.00-5.60); RDW 15.9 % (11.9-15.9); WHITE BLOOD COUNT 6.9 K/mm3 (4.0-10.0)
[2022-07-20 03:34] LABS: ACTIVATED PTT 35.6 SECONDS (25.2-36.5); INR 0.94 (0.83-1.09); PROTHROMBIN TIME (PATIENT) 10.8 SEC (9.7-13.0)
[2022-07-20 03:43] LABS: CHLORIDE 92 mmol/L (98-107); SODIUM 131 mmol/L (136-145)
[2022-07-20 03:45] LABS: CALCIUM 8.3 mg/dL (8.5-10.1); GLUCOSE,RANDOM 222 mg/dL (74-106)
[2022-07-20 03:46] LABS: ALBUMIN 3.4 g/dl (3.4-5.0); BLOOD UREA NITROGEN 38.2 mg/dL (7-18); CO2 28 mmol/L (21-32); MAGNESIUM 2.1 mg/dL (1.8-2.4)
[2022-07-20 03:48] LABS: SGPT/ALT 20 U/L (13-61)
[2022-07-20 03:49] LABS: CREATININE 4.6 mg/dL (0.55-1.3); PHOSPHOROUS 4.5 mg/dL (2.5-4.9); SGOT/AST 41 U/L (15-37)
[2022-07-20 03:50] LABS: BILIRUBIN,TOTAL 0.4 mg/dL (0.2-1); TOT PROT 7.7 g/dl (6.4-8.2)
[2022-07-20 03:51] LABS: ALK PHOS 165 U/L (45-117)
[2022-07-20 03:56] LABS: ANION GAP 10 MMOL/L (8-16)
[2022-07-20 05:53] VITALS: BP 152/67; PULSE 69; RESP 15; TEMP 98.4
[2022-07-20 05:57] LABS: CALCIUM 8.5 mg/dL (8.5-10.1)
[2022-07-20 05:58] LABS: BLOOD UREA NITROGEN 37.3 mg/dL (7-18)
[2022-07-20 06:01] LABS: CREATININE 4.5 mg/dL (0.55-1.3)
== END 2022-07-20 06:25 | disposition home or self-care (01) ==
LOC: JER 01:47
DX: N18.6 End stage renal disease (principal); T83.028A Displacement of other urinary catheter, initial encounter
CPT/HCPCS: 36415; 74176-TC; 80048; 80053; 83735; 84100; 85025; 85610; 85730; 93005; 93010; 99285-25

== ENCOUNTER → 2022-11-04 | Day surgery (SDC) | payer MEDICARE, OTHER | END | disposition home or self-care (01) | LOC: JRADIR 10:12 | PROVIDERS: ATTEND Urology | PROC: 0T25X0Z Change Drainage Device in Kidney, External Approach (ICD-10-PCS; principal; 2022-11-04) | DX: N13.9 Obstructive and reflux uropathy, unspecified (principal) | CPT/HCPCS: 50435; C1729; C1769 ==

== ENCOUNTER 2022-11-23 19:12 | Inpatient (IN) | payer MEDICARE, OTHER ==
[2022-11-23 19:27] VITALS: BMI 30.9
[2022-11-23 21:08] LABS: BASO % 0.4 % (0-2.0); EOS % 3.3 % (0-4.5); HEMATOCRIT 32.3 % (35.4-49); HEMOGLOBIN 10.6 GM/dL (11.7-16.9); MCH 27.8 pg (25.7-33.7); MCHC 32.9 g/dl (32.0-35.9); MEAN CELL VOLUME 84.4 fl (80-96); MEAN PLT VOLUME 11.1 fl (7.5-11.1); MONO % 8.8 % (3.8-10.2); NEUT % 78.5 % (42.8-82.8); PLATELET COUNT 100 10^3/uL (134-434); RBC 3.83 M/mm3 (4.00-5.60); WHITE BLOOD COUNT 6.7 K/mm3 (4.0-10.0)
[2022-11-23 21:17] LABS: INR 1.04 (0.83-1.09); PROTHROMBIN TIME (PATIENT) 12.1 SEC (9.7-13.0)
[2022-11-23 21:20] LABS: ACTIVATED PTT 36.9 SECONDS (25.2-36.5)
[2022-11-23 21:27] LABS: POTASSIUM 4.1 mmol/L (3.5-5.1)
[2022-11-23 21:30] LABS: CALCIUM 8.8 mg/dL (8.5-10.1)
[2022-11-23 21:31] LABS: ALBUMIN 3.9 g/dl (3.4-5.0); BLOOD UREA NITROGEN 33.3 mg/dL (7-18); MAGNESIUM 1.8 mg/dL (1.8-2.4)
[2022-11-23 21:34] LABS: PHOSPHOROUS 3.1 mg/dL (2.5-4.9)
[2022-11-23 21:35] LABS: TOT PROT 8.3 g/dl (6.4-8.2)
[2022-11-23 21:36] LABS: BILIRUBIN,TOTAL 0.5 mg/dL (0.2-1)
[2022-11-24] MEDS ORDERED: SODIUM CHLORIDE 250 ML IV STA (02:08)
[2022-11-24] MEDS: HEPARIN NA (PORCINE) 5,000 UNITS/ML 1ML VIAL SQ SCH ×3 (05:52→21:29)
[2022-11-24] MEDS: INSULIN SLIDING SCALE (NOVOLOG) 1 VIAL SQ SCH ×4 (06:11→21:33)
[2022-11-24 07:58] LABS: HEMATOCRIT 30.7 % (35.4-49); HEMOGLOBIN 10.3 GM/dL (11.7-16.9); MCH 28.3 pg (25.7-33.7); MCHC 33.7 g/dl (32.0-35.9); MEAN CELL VOLUME 84.1 fl (80-96); MEAN PLT VOLUME 11.8 fl (7.5-11.1); PLATELET COUNT 97 10^3/uL (134-434); RBC 3.65 M/mm3 (4.00-5.60); RDW 15.8 % (11.9-15.9)
[2022-11-24 08:12] LABS: POTASSIUM 4.3 mmol/L (3.5-5.1)
[2022-11-24 08:15] LABS: ALBUMIN 3.4 g/dl (3.4-5.0); BLOOD UREA NITROGEN 39.2 mg/dL (7-18); CALCIUM 8.3 mg/dL (8.5-10.1)
[2022-11-24 08:16] LABS: MAGNESIUM 1.7 mg/dL (1.8-2.4)
[2022-11-24 08:18] LABS: CREATININE 5.7 mg/dL (0.55-1.3); PHOSPHOROUS 3.4 mg/dL (2.5-4.9)
[2022-11-24 08:20] LABS: BILIRUBIN,TOTAL 0.5 mg/dL (0.2-1); TOT PROT 7.3 g/dl (6.4-8.2)
[2022-11-24] MEDS: amLODIPine BESYLATE 10 MG TABLET (FP) PO SCH (10:44)
[2022-11-24] MEDS: hydrALAZINE HCL 50 MG TABLET (FP) PO SCH ×2 (10:44→21:29)
[2022-11-24] MEDS: LABETALOL HCL 200 MG TABLET (FP) PO SCH ×2 (10:44→21:29)
[2022-11-24] MEDS ORDERED: INSULIN (NOVOLOG) ASPART 100 UNITS/ML 10ML VIAL ONE (11:01)
[2022-11-24] MEDS: LIDOCAINE 5% TOPICAL PATCH TP SCH (12:23)
[2022-11-24] MEDS ORDERED: SODIUM CHLORIDE 250 ML IV PRN (15:13)
[2022-11-24] MEDS: ATORVASTATIN CA 40 MG TABLET (FP) PO SCH (21:29)
[2022-11-24] MEDS: LIDOCAINE PATCH REMOVAL MC SCH (21:36)
[2022-11-25] MEDS: HEPARIN NA (PORCINE) 5,000 UNITS/ML 1ML VIAL SQ SCH ×3 (06:31→22:08)
[2022-11-25] MEDS: INSULIN SLIDING SCALE (NOVOLOG) 1 VIAL SQ SCH ×4 (06:32→22:09)
[2022-11-25 07:22] LABS: BASO % 0.5 % (0-2.0); EOS % 0.8 % (0-4.5); HEMATOCRIT 30.7 % (35.4-49); HEMOGLOBIN 10.2 GM/dL (11.7-16.9); LYMPH % 18.3 % (8-40); MCHC 33.3 g/dl (32.0-35.9); MEAN CELL VOLUME 84.1 fl (80-96); MEAN PLT VOLUME 11.8 fl (7.5-11.1); MONO % 15.8 % (3.8-10.2); NEUT % 64.6 % (42.8-82.8); PLATELET COUNT 99 10^3/uL (134-434); RBC 3.65 M/mm3 (4.00-5.60); RDW 15.9 % (11.9-15.9); WHITE BLOOD COUNT 7.1 K/mm3 (4.0-10.0)
[2022-11-25 07:43] LABS: POTASSIUM 4.2 mmol/L (3.5-5.1)
[2022-11-25 07:52] LABS: CALCIUM 8.8 mg/dL (8.5-10.1)
[2022-11-25 07:53] LABS: ALBUMIN 3.2 g/dl (3.4-5.0); BLOOD UREA NITROGEN 53.2 mg/dL (7-18)
[2022-11-25 07:55] LABS: PHOSPHOROUS 4.4 mg/dL (2.5-4.9)
[2022-11-25 07:56] LABS: CREATININE 7.4 mg/dL (0.55-1.3)
[2022-11-25 07:57] LABS: BILIRUBIN,TOTAL 0.5 mg/dL (0.2-1); TOT PROT 7.2 g/dl (6.4-8.2)
[2022-11-25] MEDS ORDERED: EPOETIN ALFA-EPBX 3,000 UNIT/ML VIAL IVPUSH ONE (09:30)
[2022-11-25] MEDS: LABETALOL HCL 200 MG TABLET (FP) PO SCH ×2 (13:06→22:09)
[2022-11-25] MEDS: hydrALAZINE HCL 50 MG TABLET (FP) PO SCH ×2 (13:07→22:08)
[2022-11-25] MEDS: amLODIPine BESYLATE 10 MG TABLET (FP) PO SCH (13:18)
[2022-11-25] MEDS: LIDOCAINE 5% TOPICAL PATCH TP SCH (13:18)
[2022-11-25] MEDS ORDERED: ACETAMINOPHEN 1000 MG/100 ML BAG IVPB ONE (15:50)
[2022-11-25] MEDS ORDERED: MEROPENEM 500 MG in DEXTROSE 5%-WATER 100 ML IVPB SCH (16:15)
[2022-11-25] MEDS: MEROPENEM 500 MG in DEXTROSE 5%-WATER 100 ML IVPB SCH (16:44)
[2022-11-25 20:22] LABS: EPI CELLS 25 /uL (0-25.1); HYALINE CASTS 4 /uL (0-3.1); URINE APPEARANCE TURBID; URINE BACTERIA 5008 /uL (0-1359); URINE BILIRUBIN NEGATIVE (NEGATIVE); URINE COLOR YELLOW; URINE GLUCOSE (UA) NEGATIVE (NEGATIVE); URINE KETONE NEGATIVE (NEGATIVE); URINE LEUK ESTERASE 3+ (NEGATIVE); URINE NITRITE NEGATIVE (NEGATIVE); URINE PROTEIN 4+ (NEGATIVE); URINE UROBILINOGEN 0.2 mg/dL (0.2-1.0); URINE WBC 8956 /uL (0-25.8)
[2022-11-25 21:14] LABS: URINE RBC 196.5 /uL (0-23.9)
[2022-11-25] MEDS ORDERED: INSULIN (NOVOLOG) ASPART 100 UNITS/ML 10ML VIAL ONE (22:01)
[2022-11-25] MEDS: LIDOCAINE PATCH REMOVAL MC SCH (22:09)
[2022-11-25] MEDS: ATORVASTATIN CA 40 MG TABLET (FP) PO SCH (22:09)
[2022-11-26] MEDS: MEROPENEM 500 MG in DEXTROSE 5%-WATER 100 ML IVPB SCH (04:00)
[2022-11-26] MEDS: INSULIN SLIDING SCALE (NOVOLOG) 1 VIAL SQ SCH ×4 (06:20→22:06)
[2022-11-26] MEDS: HEPARIN NA (PORCINE) 5,000 UNITS/ML 1ML VIAL SQ SCH ×3 (06:23→21:58)
[2022-11-26 06:46] LABS: HEMATOCRIT 30.4 % (35.4-49); HEMOGLOBIN 10.4 GM/dL (11.7-16.9); MCH 28.6 pg (25.7-33.7); MCHC 34.2 g/dl (32.0-35.9); MEAN CELL VOLUME 83.6 fl (80-96); MEAN PLT VOLUME 11.5 fl (7.5-11.1); PLATELET COUNT 100 10^3/uL (134-434); RBC 3.63 M/mm3 (4.00-5.60); RDW 15.9 % (11.9-15.9); WHITE BLOOD COUNT 8.4 K/mm3 (4.0-10.0)
[2022-11-26 07:06] LABS: POTASSIUM 3.6 mmol/L (3.5-5.1)
[2022-11-26 07:08] LABS: BLOOD UREA NITROGEN 35.3 mg/dL (7-18); CALCIUM 8.9 mg/dL (8.5-10.1); MAGNESIUM 1.9 mg/dL (1.8-2.4)
[2022-11-26 07:11] LABS: PHOSPHOROUS 4.2 mg/dL (2.5-4.9)
[2022-11-26 07:12] LABS: CREATININE 5.6 mg/dL (0.55-1.3)
[2022-11-26] MEDS: amLODIPine BESYLATE 10 MG TABLET (FP) PO SCH (09:15)
[2022-11-26] MEDS: LIDOCAINE 5% TOPICAL PATCH TP SCH (09:15)
[2022-11-26] MEDS: LABETALOL HCL 200 MG TABLET (FP) PO SCH ×2 (09:15→21:58)
[2022-11-26] MEDS: hydrALAZINE HCL 50 MG TABLET (FP) PO SCH ×2 (09:15→21:58)
[2022-11-26] MEDS ORDERED: SODIUM CHLORIDE 250 ML IV PRN (16:37)
[2022-11-26] MEDS ORDERED: INSULIN (NOVOLOG) ASPART 100 UNITS/ML 10ML VIAL ONE ×2 (16:45→22:04)
[2022-11-26] MEDS: MEROPENEM 500 MG in DEXTROSE 5%-WATER - 50 ML IVPB SCH (18:22)
[2022-11-26] MEDS: LIDOCAINE PATCH REMOVAL MC SCH (21:58)
[2022-11-26] MEDS: ATORVASTATIN CA 40 MG TABLET (FP) PO SCH (21:58)
[2022-11-27] MEDS: HEPARIN NA (PORCINE) 5,000 UNITS/ML 1ML VIAL SQ SCH ×3 (06:18→21:22)
[2022-11-27] MEDS: MEROPENEM 500 MG in DEXTROSE 5%-WATER - 50 ML IVPB SCH ×2 (06:18→17:02)
[2022-11-27] MEDS ORDERED: INSULIN (NOVOLOG) ASPART 100 UNITS/ML 10ML VIAL ONE ×4 (06:22→21:29)
[2022-11-27] MEDS: INSULIN SLIDING SCALE (NOVOLOG) 1 VIAL SQ SCH ×4 (06:23→21:30)
[2022-11-27 07:34] LABS: HEMATOCRIT 30.3 % (35.4-49); HEMOGLOBIN 10.2 GM/dL (11.7-16.9); MCH 28.3 pg (25.7-33.7); MCHC 33.7 g/dl (32.0-35.9); MEAN CELL VOLUME 84.1 fl (80-96); MEAN PLT VOLUME 12.1 fl (7.5-11.1); PLATELET COUNT 116 10^3/uL (134-434); RDW 15.6 % (11.9-15.9); WHITE BLOOD COUNT 8.5 K/mm3 (4.0-10.0)
[2022-11-27 08:00] LABS: CHLORIDE 97 mmol/L (98-107); POTASSIUM 3.6 mmol/L (3.5-5.1); SODIUM 134 mmol/L (136-145)
[2022-11-27] MEDS ORDERED: EPOETIN ALFA-EPBX 3,000 UNIT/ML VIAL IVPUSH ONE (08:00)
[2022-11-27 08:06] LABS: GLUCOSE,RANDOM 140 mg/dL (74-106)
[2022-11-27 08:07] LABS: ANION GAP 11 MMOL/L (8-16); BLOOD UREA NITROGEN 56.1 mg/dL (7-18); CALCIUM 8.8 mg/dL (8.5-10.1); CO2 25 mmol/L (21-32)
[2022-11-27 08:10] LABS: PHOSPHOROUS 4.8 mg/dL (2.5-4.9)
[2022-11-27 08:15] LABS: CREATININE 7.5 mg/dL (0.55-1.3)
[2022-11-27] MEDS: LABETALOL HCL 200 MG TABLET (FP) PO SCH ×2 (11:28→21:22)
[2022-11-27] MEDS: amLODIPine BESYLATE 10 MG TABLET (FP) PO SCH (11:28)
[2022-11-27] MEDS: LIDOCAINE 5% TOPICAL PATCH TP SCH (11:28)
[2022-11-27] MEDS: hydrALAZINE HCL 50 MG TABLET (FP) PO SCH ×2 (11:28→21:22)
[2022-11-27] MEDS: ATORVASTATIN CA 40 MG TABLET (FP) PO SCH (21:22)
[2022-11-27] MEDS: LIDOCAINE PATCH REMOVAL MC SCH (21:28)
[2022-11-28] MEDS: MEROPENEM 500 MG in DEXTROSE 5%-WATER - 50 ML IVPB SCH ×2 (05:29→17:11)
[2022-11-28] MEDS: HEPARIN NA (PORCINE) 5,000 UNITS/ML 1ML VIAL SQ SCH ×3 (05:29→21:40)
[2022-11-28] MEDS ORDERED: INSULIN (NOVOLOG) ASPART 100 UNITS/ML 10ML VIAL ONE ×2 (05:49→21:16)
[2022-11-28] MEDS: INSULIN SLIDING SCALE (NOVOLOG) 1 VIAL SQ SCH ×4 (05:59→21:41)
[2022-11-28 08:11] LABS: HEMATOCRIT 32.1 % (35.4-49); HEMOGLOBIN 10.7 GM/dL (11.7-16.9); MCH 28.3 pg (25.7-33.7); MCHC 33.3 g/dl (32.0-35.9); MEAN CELL VOLUME 84.9 fl (80-96); MEAN PLT VOLUME 11.3 fl (7.5-11.1); PLATELET COUNT 139 10^3/uL (134-434); RBC 3.79 M/mm3 (4.00-5.60); RDW 15.8 % (11.9-15.9); WHITE BLOOD COUNT 8.8 K/mm3 (4.0-10.0)
[2022-11-28 08:39] LABS: POTASSIUM 3.7 mmol/L (3.5-5.1)
[2022-11-28 08:43] LABS: BLOOD UREA NITROGEN 38.3 mg/dL (7-18); CALCIUM 9.1 mg/dL (8.5-10.1); MAGNESIUM 1.8 mg/dL (1.8-2.4)
[2022-11-28 08:46] LABS: CREATININE 6.2 mg/dL (0.55-1.3); PHOSPHOROUS 3.8 mg/dL (2.5-4.9)
[2022-11-28] MEDS: hydrALAZINE HCL 50 MG TABLET (FP) PO SCH ×2 (10:03→21:40)
[2022-11-28] MEDS: LIDOCAINE 5% TOPICAL PATCH TP SCH (10:03)
[2022-11-28] MEDS: amLODIPine BESYLATE 10 MG TABLET (FP) PO SCH (10:03)
[2022-11-28] MEDS: LABETALOL HCL 200 MG TABLET (FP) PO SCH ×2 (10:03→21:41)
[2022-11-28] MEDS: LIDOCAINE PATCH REMOVAL MC SCH (21:40)
[2022-11-28] MEDS: ATORVASTATIN CA 40 MG TABLET (FP) PO SCH (21:41)
[2022-11-29] MEDS ORDERED: EPOETIN ALFA-EPBX 4,000 UNIT/ML VIAL SQ ONE (06:40)
[2022-11-29] MEDS ORDERED: SODIUM CHLORIDE 250 ML IV PRN (06:40)
[2022-11-29] MEDS: MEROPENEM 500 MG in DEXTROSE 5%-WATER - 50 ML IVPB SCH ×2 (07:42→17:25)
[2022-11-29] MEDS: HEPARIN NA (PORCINE) 5,000 UNITS/ML 1ML VIAL SQ SCH ×3 (07:42→21:15)
[2022-11-29] MEDS: INSULIN SLIDING SCALE (NOVOLOG) 1 VIAL SQ SCH ×4 (07:43→21:16)
[2022-11-29 08:32] LABS: HEMATOCRIT 32.5 % (35.4-49); HEMOGLOBIN 10.6 GM/dL (11.7-16.9); MCH 27.6 pg (25.7-33.7); MCHC 32.5 g/dl (32.0-35.9); MEAN PLT VOLUME 11.3 fl (7.5-11.1); PLATELET COUNT 151 10^3/uL (134-434); RBC 3.83 M/mm3 (4.00-5.60); RDW 15.7 % (11.9-15.9); WHITE BLOOD COUNT 8.6 K/mm3 (4.0-10.0)
[2022-11-29 08:43] LABS: CHLORIDE 97 mmol/L (98-107); SODIUM 136 mmol/L (136-145)
[2022-11-29 08:48] LABS: CALCIUM 8.8 mg/dL (8.5-10.1)
[2022-11-29 08:49] LABS: ANION GAP 14 MMOL/L (8-16); BLOOD UREA NITROGEN 53.3 mg/dL (7-18); CO2 26 mmol/L (21-32); GLUCOSE,RANDOM 146 mg/dL (74-106); MAGNESIUM 1.8 mg/dL (1.8-2.4)
[2022-11-29 08:51] LABS: CREATININE 7.7 mg/dL (0.55-1.3); PHOSPHOROUS 4.8 mg/dL (2.5-4.9)
[2022-11-29] MEDS: amLODIPine BESYLATE 10 MG TABLET (FP) PO SCH (09:29)
[2022-11-29] MEDS: LABETALOL HCL 200 MG TABLET (FP) PO SCH ×2 (09:30→21:15)
[2022-11-29] MEDS: hydrALAZINE HCL 50 MG TABLET (FP) PO SCH ×2 (09:30→21:15)
[2022-11-29] MEDS: LIDOCAINE 5% TOPICAL PATCH TP SCH (09:30)
[2022-11-29] MEDS ORDERED: INSULIN (LEVEMIR) 100 UNITS/ML UNITS SQ SCH (10:00)
[2022-11-29] MEDS ORDERED: INSULIN (NOVOLOG) ASPART 100 UNITS/ML 10ML VIAL ONE ×2 (11:17→21:09)
[2022-11-29] MEDS: ATORVASTATIN CA 40 MG TABLET (FP) PO SCH (21:15)
[2022-11-29] MEDS: LIDOCAINE PATCH REMOVAL MC SCH (21:16)
[2022-11-29] MEDS: INSULIN (LEVEMIR) 100 UNITS/ML UNITS SQ SCH (22:07)
[2022-11-30] MEDS: HEPARIN NA (PORCINE) 5,000 UNITS/ML 1ML VIAL SQ SCH ×3 (06:10→22:51)
[2022-11-30] MEDS: MEROPENEM 500 MG in DEXTROSE 5%-WATER - 50 ML IVPB SCH ×2 (06:10→17:15)
[2022-11-30] MEDS ORDERED: INSULIN (NOVOLOG) ASPART 100 UNITS/ML 10ML VIAL ONE ×3 (06:18→16:58)
[2022-11-30] MEDS: INSULIN SLIDING SCALE (NOVOLOG) 1 VIAL SQ SCH ×4 (06:21→22:56)
[2022-11-30] MEDS: amLODIPine BESYLATE 10 MG TABLET (FP) PO SCH (09:16)
[2022-11-30] MEDS: LABETALOL HCL 200 MG TABLET (FP) PO SCH ×2 (09:16→22:54)
[2022-11-30] MEDS: hydrALAZINE HCL 50 MG TABLET (FP) PO SCH ×2 (09:16→22:53)
[2022-11-30] MEDS: LIDOCAINE 5% TOPICAL PATCH TP SCH (09:16)
[2022-11-30] MEDS: INSULIN (LEVEMIR) 100 UNITS/ML UNITS SQ SCH ×2 (10:07→22:54)
[2022-11-30] MEDS ORDERED: SODIUM CHLORIDE 250 ML IV PRN (15:06)
[2022-11-30] MEDS ORDERED: EPOETIN ALFA-EPBX 4,000 UNIT/ML VIAL SQ ONE (15:06)
[2022-11-30] MEDS ORDERED: LIDOCAINE PATCH REMOVAL MC SCH (22:00)
[2022-11-30] MEDS ORDERED: ATORVASTATIN CA 40 MG TABLET (FP) PO SCH (22:00)
[2022-12-01] MEDS ORDERED: MELATONIN 1 MG TABLET PO ONE (03:02)
[2022-12-01] MEDS ORDERED: MEROPENEM 500 MG in DEXTROSE 5%-WATER - 50 ML IVPB SCH (06:00)
[2022-12-01] MEDS: HEPARIN NA (PORCINE) 5,000 UNITS/ML 1ML VIAL SQ SCH ×2 (07:30→13:08)
[2022-12-01] MEDS: INSULIN SLIDING SCALE (NOVOLOG) 1 VIAL SQ SCH ×2 (07:31→11:34)
[2022-12-01 08:11] LABS: CHLORIDE 95 mmol/L (98-107); POTASSIUM 4.1 mmol/L (3.5-5.1); SODIUM 135 mmol/L (136-145)
[2022-12-01 08:15] LABS: ANION GAP 14 MMOL/L (8-16); CALCIUM 8.9 mg/dL (8.5-10.1); CO2 26 mmol/L (21-32)
[2022-12-01 08:16] LABS: BLOOD UREA NITROGEN 50.7 mg/dL (7-18); GLUCOSE,RANDOM 183 mg/dL (74-106)
[2022-12-01 08:19] LABS: PHOSPHOROUS 5.9 mg/dL (2.5-4.9)
[2022-12-01 08:26] LABS: CREATININE 7.5 mg/dL (0.55-1.3)
[2022-12-01] MEDS: LABETALOL HCL 200 MG TABLET (FP) PO SCH (09:26)
[2022-12-01] MEDS: hydrALAZINE HCL 50 MG TABLET (FP) PO SCH (09:26)
[2022-12-01] MEDS ORDERED: amLODIPine BESYLATE 10 MG TABLET (FP) PO SCH (10:00)
[2022-12-01] MEDS ORDERED: LIDOCAINE 5% TOPICAL PATCH TP SCH (10:00)
[2022-12-01] MEDS: INSULIN (LEVEMIR) 100 UNITS/ML UNITS SQ SCH (11:35)
[2022-12-01] MEDS ORDERED: INSULIN (LEVEMIR) 100 UNITS/ML UNITS SQ ONE (11:53)
[2022-12-01 13:21] VITALS: RESP 18
[2022-12-01 13:55] LABS: HEMOGLOBIN 10.6 GM/dL (11.7-16.9); MCH 27.8 pg (25.7-33.7); MCHC 33.1 g/dl (32.0-35.9); MEAN PLT VOLUME 10.5 fl (7.5-11.1); PLATELET COUNT 167 10^3/uL (134-434); RBC 3.81 M/mm3 (4.00-5.60); RDW 15.5 % (11.9-15.9); WHITE BLOOD COUNT 9.7 K/mm3 (4.0-10.0)
[2022-12-01] MEDS ORDERED: SODIUM CHLORIDE 250 ML IV PRN (15:50)
[2022-12-01] MEDS ORDERED: EPOETIN ALFA-EPBX 4,000 UNIT/ML VIAL SQ ONE (16:00)
[2022-12-01 17:46] VITALS: BP 149/82; PULSE 94; TEMP 98.4
== END 2022-12-01 18:26 | disposition home or self-care (01) | DRG 871 ==
LOC: JER 19:12 → JERBED 20:26 → J4W 11-24 01:58 → OBSVTOIN 11-26 09:16 → J8W 11-30 18:25
PROVIDERS: ADMIT Internal Medicine; ATTEND Nurse Practitioner Family
PROC: 5A1D70Z Performance of Urinary Filtration, Intermittent, Less than 6 Hours Per Day (ICD-10-PCS; 2022-11-24)
PROC: 0T25X0Z Change Drainage Device in Kidney, External Approach (ICD-10-PCS; principal; 2022-11-26)
DX: A41.9 Sepsis, unspecified organism (principal); N18.6 End stage renal disease; I12.0 Hypertensive chronic kidney disease with stage 5 chronic kidney disease or end stage renal disease; N13.6 Pyonephrosis; I47.1 Supraventricular tachycardia; T83.512A Infection and inflammatory reaction due to nephrostomy catheter, initial encounter; Y83.8 Other surgical procedures as the cause of abnormal reaction of the patient, or of later complication, without mention of misadventure at the time of the procedure; N99.521 Infection of incontinent external stoma of urinary tract; I25.10 Atherosclerotic heart disease of native coronary artery without angina pectoris; E78.5 Hyperlipidemia, unspecified; E11.40 Type 2 diabetes mellitus with diabetic neuropathy, unspecified; E11.22 Type 2 diabetes mellitus with diabetic chronic kidney disease; Z99.2 Dependence on renal dialysis; G90.1 Familial dysautonomia [Riley-Day]; I45.10 Unspecified right bundle-branch block; I44.0 Atrioventricular block, first degree; R55 Syncope and collapse; D69.6 Thrombocytopenia, unspecified; R42 Dizziness and giddiness
CPT/HCPCS: 36415; 50435; 70450-TC; 71045-TC-FY; 74450-TC-FY; 76775-TC; 80048; 80053; 81003; 82550; 82962; 83735; 84100; 84443; 84484; 85025; 85027; 85610; 85730; 86803; 87040; 87086; 87186; 87340; 93005; 93010; 93306-TC; 99283-25; C9803-CS; G0378; J1644; Q5106; U0003; U0005

== ENCOUNTER 2023-04-17 16:58 | Emergency (ER) | payer MEDICARE, OTHER ==
[2023-04-17 17:04] VITALS: BP 161/68; PULSE 91; RESP 18; TEMP 97.9; BMI 27.6
== END 2023-04-17 18:30 | disposition home or self-care (01) ==
LOC: JER 16:58
PROC: 0T9B70Z Drainage of Bladder with Drainage Device, Via Natural or Artificial Opening (ICD-10-PCS; principal; 2023-04-17)
DX: T83.010A Breakdown (mechanical) of cystostomy catheter, initial encounter (principal); Y83.1 Surgical operation with implant of artificial internal device as the cause of abnormal reaction of the patient, or of later complication, without mention of misadventure at the time of the procedure
CPT/HCPCS: 51705; 99283-25

== ENCOUNTER → 2023-05-03 | Day surgery (SDC) | payer MEDICARE, OTHER | END | disposition home or self-care (01) | LOC: JRADIR 09:09 | PROVIDERS: ATTEND Urology | PROC: 0T25X0Z Change Drainage Device in Kidney, External Approach (ICD-10-PCS; principal; 2023-05-03) | DX: Z43.6 Encounter for attention to other artificial openings of urinary tract (principal) | CPT/HCPCS: 50435; A4358; C1729; C1769 ==

== ENCOUNTER 2023-05-07 09:13 | Observation (INO) | payer MEDICARE, OTHER ==
[2023-05-07 09:17] VITALS: RESP 18
[2023-05-07 10:44] LABS: BASO % 0.8 % (0-2.0); EOS % 3.6 % (0-4.5); HEMATOCRIT 30.4 % (35.4-49); HEMOGLOBIN 9.9 GM/dL (11.7-16.9); LYMPH % 18.8 % (8-40); MCH 27.4 pg (25.7-33.7); MCHC 32.6 g/dl (32.0-35.9); MEAN CELL VOLUME 84.1 fl (80-96); MEAN PLT VOLUME 10.3 fl (7.5-11.1); MONO % 8.3 % (3.8-10.2); NEUT % 68.5 % (42.8-82.8); PLATELET COUNT 150 10^3/uL (134-434); RBC 3.62 M/mm3 (4.00-5.60); RDW 16.2 % (11.9-15.9); WHITE BLOOD COUNT 10.5 K/mm3 (4.0-10.0)
[2023-05-07 10:53] LABS: INR 1.02 (0.83-1.09); PROTHROMBIN TIME (PATIENT) 11.8 SEC (9.7-13.0)
[2023-05-07 10:56] LABS: ACTIVATED PTT 37.6 SECONDS (25.2-36.5)
[2023-05-07 11:01] LABS: EPI CELLS 1 /uL (0-25.1); HYALINE CASTS 0 /uL (0-3.1); URINE APPEARANCE CLOUDY; URINE BILIRUBIN 1+ (NEGATIVE); URINE COLOR RED; URINE GLUCOSE (UA) NEGATIVE (NEGATIVE); URINE KETONE NEGATIVE (NEGATIVE); URINE LEUK ESTERASE 3+ (NEGATIVE); URINE NITRITE POSITIVE (NEGATIVE); URINE PROTEIN 2+ (NEGATIVE); URINE RBC 32 /uL (0-23.9); URINE UROBILINOGEN 0.2 mg/dL (0.2-1.0); URINE WBC 0 /uL (0-25.8)
[2023-05-07 11:06] LABS: POTASSIUM 4.4 mmol/L (3.5-5.1)
[2023-05-07 11:08] LABS: ALBUMIN 3.9 g/dl (3.4-5.0); BLOOD UREA NITROGEN 30.2 mg/dL (7-18); CALCIUM 9.1 mg/dL (8.5-10.1); MAGNESIUM 2.3 mg/dL (1.8-2.4)
[2023-05-07 11:11] LABS: CREATININE 5.6 mg/dL (0.55-1.3); PHOSPHOROUS 3.6 mg/dL (2.5-4.9)
[2023-05-07 11:13] LABS: BILIRUBIN,TOTAL 0.6 mg/dL (0.2-1); TOT PROT 8.3 g/dl (6.4-8.2)
[2023-05-07] MEDS ORDERED: CEFTRIAXONE 1 GM/50 ML BAG ONE (13:31)
[2023-05-07 15:47] LABS: URINE BACTERIA 387 /uL (0-1359)
[2023-05-07] MEDS: INSULIN SLIDING SCALE (NOVOLOG) 1 VIAL SQ SCH (16:58)
[2023-05-07] MEDS ORDERED: SEVELAMER CARBONATE 800 MG TAB (FP) ONE (17:33)
[2023-05-07] MEDS: SEVELAMER CARBONATE 800 MG TAB (FP) PO SCH (17:35)
[2023-05-07] MEDS: LABETALOL HCL 200 MG TABLET (FP) PO SCH (21:36)
[2023-05-07] MEDS: hydrALAZINE HCL 50 MG TABLET (FP) PO SCH (21:37)
[2023-05-07] MEDS: SODIUM BICARBONATE 650 MG TABLET PO SCH (21:40)
[2023-05-07] MEDS ORDERED: ATORVASTATIN CA 40 MG TABLET (FP) PO SCH (22:00)
[2023-05-07] MEDS ORDERED: INSULIN (LEVEMIR) 100 UNITS/ML UNITS SQ SCH (22:00)
[2023-05-08] MEDS: SODIUM BICARBONATE 650 MG TABLET PO SCH ×2 (05:54→13:20)
[2023-05-08] MEDS: INSULIN SLIDING SCALE (NOVOLOG) 1 VIAL SQ SCH ×3 (06:18→16:29)
[2023-05-08] MEDS: SEVELAMER CARBONATE 800 MG TAB (FP) PO SCH ×2 (08:27→11:41)
[2023-05-08 09:13] LABS: BASO % 0.8 % (0-2.0); EOS % 4.4 % (0-4.5); HEMATOCRIT 28.1 % (35.4-49); HEMOGLOBIN 8.9 GM/dL (11.7-16.9); LYMPH % 20.9 % (8-40); MCHC 31.7 g/dl (32.0-35.9); MEAN CELL VOLUME 85.2 fl (80-96); MEAN PLT VOLUME 10.4 fl (7.5-11.1); MONO % 7.5 % (3.8-10.2); NEUT % 66.4 % (42.8-82.8); PLATELET COUNT 145 10^3/uL (134-434); RBC 3.29 M/mm3 (4.00-5.60); WHITE BLOOD COUNT 8.9 K/mm3 (4.0-10.0)
[2023-05-08] MEDS: hydrALAZINE HCL 50 MG TABLET (FP) PO SCH (09:29)
[2023-05-08] MEDS: LABETALOL HCL 200 MG TABLET (FP) PO SCH (09:30)
[2023-05-08 09:41] LABS: POTASSIUM 4.6 mmol/L (3.5-5.1)
[2023-05-08 09:45] LABS: BLOOD UREA NITROGEN 48.9 mg/dL (7-18)
[2023-05-08 09:46] LABS: CALCIUM 8.9 mg/dL (8.5-10.1)
[2023-05-08 09:48] LABS: CREATININE 7.4 mg/dL (0.55-1.3)
[2023-05-08] MEDS ORDERED: amLODIPine BESYLATE 10 MG TABLET (FP) PO SCH (10:00)
[2023-05-08] MEDS ORDERED: MIRTAZAPINE 15 MG TABLET (FP) PO SCH (10:00)
[2023-05-08 14:22] VITALS: BMI 29.3
[2023-05-08 14:30] VITALS: BP 140/65; PULSE 77; TEMP 97.8
[2023-05-09] MEDS ORDERED: VITAMIN B COMP W-C 1 EA TABLET (NEPHRO-VITE) PO SCH (10:00)
== END 2023-05-08 17:00 | disposition home or self-care (01) ==
LOC: JER 09:13 → JERBED 12:13 → J7W 19:27
PROVIDERS: ADMIT Internal Medicine; ATTEND Internal Medicine
PROC: 3E03329 Introduction of Other Anti-infective into Peripheral Vein, Percutaneous Approach (ICD-10-PCS; principal; 2023-05-07)
PROC: 3E013VG Introduction of Insulin into Subcutaneous Tissue, Percutaneous Approach (ICD-10-PCS; 2023-05-07)
DX: N99.528 Other complication of incontinent external stoma of urinary tract (principal); N18.6 End stage renal disease; Z99.2 Dependence on renal dialysis; Z88.8 Allergy status to other drugs, medicaments and biological substances; Z85.46 Personal history of malignant neoplasm of prostate; E78.5 Hyperlipidemia, unspecified; K21.9 Gastro-esophageal reflux disease without esophagitis; N13.30 Unspecified hydronephrosis
CPT/HCPCS: 36415; 74176-TC; 80048; 80053; 81003; 82962; 83735; 84100; 84484; 85025; 85610; 85730; 86850; 86900; 86901; 87086; 87186; 93005; 93010; 96372; 96374; 99285-25; G0378

== ENCOUNTER 2023-07-14 18:49 | Inpatient (IN) | payer MEDICARE, OTHER ==
[2023-07-14 18:58] VITALS: BMI 29.2
[2023-07-14] MEDS ORDERED: ACETAMINOPHEN 1000 MG/100 ML BAG IVPB ONE (22:02)
[2023-07-14 22:03] LABS: BASO % 1.1 % (0-2.0); EOS % 6.1 % (0-4.5); HEMATOCRIT 31.7 % (35.4-49); HEMOGLOBIN 10.1 GM/dL (11.7-16.9); LYMPH % 33.9 % (8-40); MCH 26.8 pg (25.7-33.7); MCHC 31.8 g/dl (32.0-35.9); MEAN CELL VOLUME 84.5 fl (80-96); MEAN PLT VOLUME 10.2 fl (7.5-11.1); MONO % 8.2 % (3.8-10.2); NEUT % 50.7 % (42.8-82.8); PLATELET COUNT 106 10^3/uL (134-434); RBC 3.76 M/mm3 (4.00-5.60); WHITE BLOOD COUNT 5.8 K/mm3 (4.0-10.0)
[2023-07-14] MEDS ORDERED: ACETAMINOPHEN 500 MG TABLET (FP) PO ONE (22:03)
[2023-07-14] MEDS ORDERED: ACETAMINOPHEN 325 MG TABLET (FP) ONE (22:07)
[2023-07-14 22:10] LABS: INR 0.93 (0.83-1.09); PROTHROMBIN TIME (PATIENT) 10.8 SEC (9.7-13.0)
[2023-07-14 22:12] LABS: ACTIVATED PTT 35.2 SECONDS (25.2-36.5)
[2023-07-14 22:27] LABS: POTASSIUM 3.9 mmol/L (3.5-5.1)
[2023-07-14 22:30] LABS: ALBUMIN 3.3 g/dl (3.4-5.0); CALCIUM 8.8 mg/dL (8.5-10.1)
[2023-07-14 22:34] LABS: BILIRUBIN,TOTAL 0.3 mg/dL (0.2-1)
[2023-07-14 22:35] LABS: TOT PROT 7.5 g/dl (6.4-8.2)
[2023-07-15] MEDS ORDERED: ALBUTEROL SO4 HFA INHALER IH PRN (00:29)
[2023-07-15] MEDS ORDERED: REMDESIVIR 200 MG in SODIUM CHLORIDE 250 ML IVPB ONE (02:30)
[2023-07-15] MEDS ORDERED: ACETAMINOPHEN 1000 MG/100 ML BAG IVPB PRN (03:09)
[2023-07-15] MEDS ORDERED: INSULIN (NOVOLOG) ASPART 100 UNITS/ML 10ML VIAL ONE (07:43)
[2023-07-15] MEDS: INSULIN ASPART SLIDING SCALE (NOVOLOG) 1 VIAL SQ SCH ×4 (07:44→22:17)
[2023-07-15] MEDS: SODIUM BICARBONATE 650 MG TABLET PO SCH ×4 (07:44→22:15)
[2023-07-15] MEDS: SEVELAMER CARBONATE 800 MG TAB (FP) PO SCH ×3 (08:35→18:14)
[2023-07-15 09:28] LABS: BASO % 0.6 % (0-2.0); EOS % 6.5 % (0-4.5); HEMOGLOBIN 10.1 GM/dL (11.7-16.9); LYMPH % 27.6 % (8-40); MCH 26.7 pg (25.7-33.7); MCHC 31.6 g/dl (32.0-35.9); MEAN CELL VOLUME 84.3 fl (80-96); MEAN PLT VOLUME 10.5 fl (7.5-11.1); MONO % 7.1 % (3.8-10.2); NEUT % 58.2 % (42.8-82.8); PLATELET COUNT 102 10^3/uL (134-434); RDW 15.5 % (11.9-15.9); WHITE BLOOD COUNT 5.6 K/mm3 (4.0-10.0)
[2023-07-15 09:49] LABS: CHLORIDE 102 mmol/L (98-107); SODIUM 139 mmol/L (136-145)
[2023-07-15 09:57] LABS: CALCIUM 8.5 mg/dL (8.5-10.1)
[2023-07-15 09:58] LABS: ALBUMIN 3.3 g/dl (3.4-5.0); ANION GAP 12 mmol/L (4-13); BLOOD UREA NITROGEN 45.3 mg/dL (7-18); CO2 24 mmol/L (21-32); GLUCOSE,RANDOM 160 mg/dL (74-106)
[2023-07-15 10:00] LABS: MAGNESIUM 2.2 mg/dL (1.8-2.4); PHOSPHOROUS 5.1 mg/dL (2.5-4.9); SGPT/ALT 15 U/L (13-61)
[2023-07-15 10:01] LABS: BILIRUBIN,TOTAL 0.3 mg/dL (0.2-1); SGOT/AST 14 U/L (15-37); TOT PROT 7.3 g/dl (6.4-8.2)
[2023-07-15 10:02] LABS: ALK PHOS 101 U/L (45-117)
[2023-07-15 10:17] LABS: CREATININE 7.5 mg/dL (0.55-1.3)
[2023-07-15] MEDS: hydrALAZINE HCL 50 MG TABLET (FP) PO SCH ×3 (10:19→22:15)
[2023-07-15] MEDS: amLODIPine BESYLATE 10 MG TABLET (FP) PO SCH ×2 (10:19→18:15)
[2023-07-15] MEDS: LABETALOL HCL 200 MG TABLET (FP) PO SCH ×2 (10:19→22:15)
[2023-07-15] MEDS ORDERED: SODIUM CHLORIDE 250 ML IV PRN (14:03)
[2023-07-15] MEDS ORDERED: EPOETIN ALFA-EPBX 4,000 UNIT/ML VIAL IVPUSH ONE (15:00)
[2023-07-15] MEDS: MIRTAZAPINE 15 MG TABLET (FP) PO SCH (22:15)
[2023-07-15] MEDS: INSULIN (LEVEMIR) 100 UNITS/ML UNITS SQ SCH (22:19)
[2023-07-15] MEDS: ATORVASTATIN CA 40 MG TABLET (FP) PO SCH (22:19)
[2023-07-16] MEDS: SODIUM BICARBONATE 650 MG TABLET PO SCH ×3 (07:19→22:07)
[2023-07-16] MEDS: INSULIN ASPART SLIDING SCALE (NOVOLOG) 1 VIAL SQ SCH ×4 (07:19→22:11)
[2023-07-16] MEDS: SEVELAMER CARBONATE 800 MG TAB (FP) PO SCH ×3 (08:36→17:27)
[2023-07-16 08:59] LABS: HEMATOCRIT 33.2 % (35.4-49); HEMOGLOBIN 10.8 GM/dL (11.7-16.9); MCH 27.1 pg (25.7-33.7); MCHC 32.7 g/dl (32.0-35.9); MEAN CELL VOLUME 82.9 fl (80-96); MEAN PLT VOLUME 10.8 fl (7.5-11.1); PLATELET COUNT 117 10^3/uL (134-434); RBC 4.01 M/mm3 (4.00-5.60); RDW 15.7 % (11.9-15.9); WHITE BLOOD COUNT 5.5 K/mm3 (4.0-10.0)
[2023-07-16 09:12] LABS: POTASSIUM 3.6 mmol/L (3.5-5.1)
[2023-07-16] MEDS: REMDESIVIR 100 MG in SODIUM CHLORIDE 250 ML IVPB SCH (09:18)
[2023-07-16] MEDS: amLODIPine BESYLATE 10 MG TABLET (FP) PO SCH (09:19)
[2023-07-16] MEDS: LABETALOL HCL 200 MG TABLET (FP) PO SCH ×2 (09:19→22:06)
[2023-07-16] MEDS: hydrALAZINE HCL 50 MG TABLET (FP) PO SCH ×2 (09:19→22:07)
[2023-07-16 09:24] LABS: CALCIUM 8.8 mg/dL (8.5-10.1)
[2023-07-16 09:26] LABS: ALBUMIN 3.1 g/dl (3.4-5.0)
[2023-07-16 09:28] LABS: CREATININE 5.2 mg/dL (0.55-1.3)
[2023-07-16 09:29] LABS: BILIRUBIN,TOTAL 0.3 mg/dL (0.2-1)
[2023-07-16 09:30] LABS: TOT PROT 7.3 g/dl (6.4-8.2)
[2023-07-16 10:01] LABS: ANISOCYTOSIS 1+; MACROCYTOSIS 0; OVALOCYTE 1+
[2023-07-16 10:04] LABS: PLATELET ESTIMATE DECREASED
[2023-07-16] MEDS: ATORVASTATIN CA 40 MG TABLET (FP) PO SCH (22:06)
[2023-07-16] MEDS: MIRTAZAPINE 15 MG TABLET (FP) PO SCH (22:07)
[2023-07-16] MEDS: INSULIN (LEVEMIR) 100 UNITS/ML UNITS SQ SCH (22:07)
[2023-07-17] MEDS ORDERED: INSULIN (NOVOLOG) ASPART 100 UNITS/ML 10ML VIAL ONE ×2 (06:23→12:11)
[2023-07-17] MEDS: INSULIN ASPART SLIDING SCALE (NOVOLOG) 1 VIAL SQ SCH ×4 (06:25→21:58)
[2023-07-17] MEDS: SODIUM BICARBONATE 650 MG TABLET PO SCH ×3 (06:25→21:57)
[2023-07-17] MEDS: REMDESIVIR 100 MG in SODIUM CHLORIDE 250 ML IVPB SCH (10:50)
[2023-07-17] MEDS: SEVELAMER CARBONATE 800 MG TAB (FP) PO SCH ×3 (10:52→17:26)
[2023-07-17] MEDS: amLODIPine BESYLATE 10 MG TABLET (FP) PO SCH (10:53)
[2023-07-17] MEDS: hydrALAZINE HCL 50 MG TABLET (FP) PO SCH ×2 (10:53→21:57)
[2023-07-17] MEDS: LABETALOL HCL 200 MG TABLET (FP) PO SCH ×2 (10:54→21:57)
[2023-07-17] MEDS: INSULIN (LEVEMIR) 100 UNITS/ML UNITS SQ SCH (21:57)
[2023-07-17] MEDS: MIRTAZAPINE 15 MG TABLET (FP) PO SCH (21:57)
[2023-07-17] MEDS: ATORVASTATIN CA 40 MG TABLET (FP) PO SCH (21:59)
[2023-07-18] MEDS ORDERED: ACETAMINOPHEN 1000 MG/100 ML BAG IVPB ONE (04:31)
[2023-07-18] MEDS: SODIUM BICARBONATE 650 MG TABLET PO SCH (05:04)
[2023-07-18] MEDS: INSULIN ASPART SLIDING SCALE (NOVOLOG) 1 VIAL SQ SCH ×4 (07:59→21:31)
[2023-07-18] MEDS: SEVELAMER CARBONATE 800 MG TAB (FP) PO SCH ×3 (09:02→17:39)
[2023-07-18] MEDS: amLODIPine BESYLATE 10 MG TABLET (FP) PO SCH (10:33)
[2023-07-18] MEDS: LABETALOL HCL 200 MG TABLET (FP) PO SCH ×2 (10:33→21:30)
[2023-07-18] MEDS: hydrALAZINE HCL 50 MG TABLET (FP) PO SCH ×2 (10:33→21:30)
[2023-07-18] MEDS ORDERED: ACETAMINOPHEN 325 MG TABLET (FP) PO ONE (16:00)
[2023-07-18] MEDS: CEFTRIAXONE 1 GM in DEXTROSE 5%-WATER - 50 ML IVPB SCH (18:08)
[2023-07-18] MEDS: ATORVASTATIN CA 40 MG TABLET (FP) PO SCH (21:30)
[2023-07-18] MEDS: MIRTAZAPINE 15 MG TABLET (FP) PO SCH (21:30)
[2023-07-18] MEDS: INSULIN (LEVEMIR) 100 UNITS/ML UNITS SQ SCH (21:31)
[2023-07-19] MEDS: INSULIN ASPART SLIDING SCALE (NOVOLOG) 1 VIAL SQ SCH ×4 (06:17→22:00)
[2023-07-19] MEDS ORDERED: SODIUM CHLORIDE 250 ML IV PRN (07:24)
[2023-07-19] MEDS: SEVELAMER CARBONATE 800 MG TAB (FP) PO SCH ×3 (07:51→18:06)
[2023-07-19] MEDS ORDERED: EPOETIN ALFA-EPBX 3,000 UNIT/ML VIAL SQ ONE (08:00)
[2023-07-19 08:54] LABS: BASO % 0.6 % (0-2.0); EOS % 6.7 % (0-4.5); HEMATOCRIT 30.7 % (35.4-49); HEMOGLOBIN 9.7 GM/dL (11.7-16.9); LYMPH % 25.3 % (8-40); MCH 26.7 pg (25.7-33.7); MCHC 31.6 g/dl (32.0-35.9); MEAN CELL VOLUME 84.6 fl (80-96); MEAN PLT VOLUME 10.6 fl (7.5-11.1); MONO % 8.5 % (3.8-10.2); NEUT % 58.9 % (42.8-82.8); PLATELET COUNT 107 10^3/uL (134-434); RBC 3.62 M/mm3 (4.00-5.60); RDW 16.2 % (11.9-15.9); WHITE BLOOD COUNT 5.7 K/mm3 (4.0-10.0)
[2023-07-19 09:14] LABS: CHLORIDE 104 mmol/L (98-107); POTASSIUM 3.6 mmol/L (3.5-5.1); SODIUM 138 mmol/L (136-145)
[2023-07-19 09:16] LABS: ANION GAP 12 mmol/L (4-13); CALCIUM 8.2 mg/dL (8.5-10.1); CO2 23 mmol/L (21-32); GLUCOSE,RANDOM 92 mg/dL (74-106)
[2023-07-19 09:19] LABS: SGPT/ALT 12 U/L (13-61)
[2023-07-19 09:20] LABS: SGOT/AST 9 U/L (15-37)
[2023-07-19 09:21] LABS: BILIRUBIN,TOTAL 0.3 mg/dL (0.2-1); TOT PROT 6.6 g/dl (6.4-8.2)
[2023-07-19 09:22] LABS: ALK PHOS 79 U/L (45-117)
[2023-07-19 09:53] LABS: BLOOD UREA NITROGEN 60.4 mg/dL (7-18); CREATININE 9.3 mg/dL (0.55-1.3)
[2023-07-19] MEDS: CEFTRIAXONE 1 GM in DEXTROSE 5%-WATER - 50 ML IVPB SCH (12:01)
[2023-07-19] MEDS: LABETALOL HCL 200 MG TABLET (FP) PO SCH ×2 (12:02→21:59)
[2023-07-19] MEDS: hydrALAZINE HCL 50 MG TABLET (FP) PO SCH ×2 (12:02→22:02)
[2023-07-19] MEDS: amLODIPine BESYLATE 10 MG TABLET (FP) PO SCH (12:02)
[2023-07-19] MEDS: ATORVASTATIN CA 40 MG TABLET (FP) PO SCH (21:58)
[2023-07-19] MEDS: MIRTAZAPINE 15 MG TABLET (FP) PO SCH (21:59)
[2023-07-19] MEDS: INSULIN (LEVEMIR) 100 UNITS/ML UNITS SQ SCH (22:01)
[2023-07-20] MEDS: INSULIN ASPART SLIDING SCALE (NOVOLOG) 1 VIAL SQ SCH ×4 (06:33→22:02)
[2023-07-20] MEDS: amLODIPine BESYLATE 10 MG TABLET (FP) PO SCH (09:25)
[2023-07-20] MEDS: hydrALAZINE HCL 50 MG TABLET (FP) PO SCH ×2 (09:25→21:59)
[2023-07-20] MEDS: SEVELAMER CARBONATE 800 MG TAB (FP) PO SCH ×3 (09:25→17:36)
[2023-07-20] MEDS: CEFTRIAXONE 1 GM in DEXTROSE 5%-WATER - 50 ML IVPB SCH (09:26)
[2023-07-20] MEDS: LABETALOL HCL 200 MG TABLET (FP) PO SCH ×2 (09:26→22:00)
[2023-07-20] MEDS: PIPERACILLIN/TAZOB 2.25 GM 2.25 GM in DEXTROSE 5%-WATER - 50 ML IVPB SCH (17:36)
[2023-07-20] MEDS: MIRTAZAPINE 15 MG TABLET (FP) PO SCH (21:59)
[2023-07-20] MEDS: ATORVASTATIN CA 40 MG TABLET (FP) PO SCH (21:59)
[2023-07-20] MEDS: INSULIN (LEVEMIR) 100 UNITS/ML UNITS SQ SCH (22:01)
[2023-07-21] MEDS: PIPERACILLIN/TAZOB 2.25 GM 2.25 GM in DEXTROSE 5%-WATER - 50 ML IVPB SCH ×3 (01:05→18:38)
[2023-07-21] MEDS: INSULIN ASPART SLIDING SCALE (NOVOLOG) 1 VIAL SQ SCH ×4 (06:06→23:04)
[2023-07-21] MEDS: LABETALOL HCL 200 MG TABLET (FP) PO SCH ×2 (09:55→22:47)
[2023-07-21] MEDS: hydrALAZINE HCL 50 MG TABLET (FP) PO SCH ×2 (09:55→22:47)
[2023-07-21] MEDS: amLODIPine BESYLATE 10 MG TABLET (FP) PO SCH (09:55)
[2023-07-21] MEDS: SEVELAMER CARBONATE 800 MG TAB (FP) PO SCH ×3 (09:55→18:38)
[2023-07-21 11:37] LABS: BASO % 0.6 % (0-2.0); EOS % 3.5 % (0-4.5); HEMATOCRIT 32.7 % (35.4-49); HEMOGLOBIN 10.6 GM/dL (11.7-16.9); MCH 27.1 pg (25.7-33.7); MCHC 32.5 g/dl (32.0-35.9); MEAN CELL VOLUME 83.2 fl (80-96); MEAN PLT VOLUME 10.7 fl (7.5-11.1); MONO % 7.9 % (3.8-10.2); PLATELET COUNT 118 10^3/uL (134-434); RBC 3.93 M/mm3 (4.00-5.60); RDW 16.2 % (11.9-15.9); WHITE BLOOD COUNT 6.4 K/mm3 (4.0-10.0)
[2023-07-21] MEDS ORDERED: SODIUM CHLORIDE 250 ML IV PRN (12:00)
[2023-07-21 12:16] LABS: CHLORIDE 98 mmol/L (98-107); POTASSIUM 3.5 mmol/L (3.5-5.1); SODIUM 133 mmol/L (136-145)
[2023-07-21 12:18] LABS: ALBUMIN 3.4 g/dl (3.4-5.0); ANION GAP 7 mmol/L (4-13); BLOOD UREA NITROGEN 40.4 mg/dL (7-18); CO2 29 mmol/L (21-32); GLUCOSE,RANDOM 229 mg/dL (74-106)
[2023-07-21 12:21] LABS: SGOT/AST 9 U/L (15-37); SGPT/ALT 12 U/L (13-61)
[2023-07-21 12:22] LABS: BILIRUBIN,TOTAL 0.6 mg/dL (0.2-1)
[2023-07-21 12:23] LABS: TOT PROT 7.7 g/dl (6.4-8.2)
[2023-07-21 12:24] LABS: ALK PHOS 90 U/L (45-117)
[2023-07-21] MEDS ORDERED: EPOETIN ALFA-EPBX 4,000 UNIT/ML VIAL SQ ONE (13:00)
[2023-07-21] MEDS: ATORVASTATIN CA 40 MG TABLET (FP) PO SCH (22:47)
[2023-07-21] MEDS: INSULIN (LEVEMIR) 100 UNITS/ML UNITS SQ SCH (22:47)
[2023-07-21] MEDS: MIRTAZAPINE 15 MG TABLET (FP) PO SCH (22:47)
[2023-07-22] MEDS: PIPERACILLIN/TAZOB 2.25 GM 2.25 GM in DEXTROSE 5%-WATER - 50 ML IVPB SCH ×3 (01:51→18:26)
[2023-07-22] MEDS: INSULIN ASPART SLIDING SCALE (NOVOLOG) 1 VIAL SQ SCH ×4 (06:04→21:29)
[2023-07-22] MEDS: SEVELAMER CARBONATE 800 MG TAB (FP) PO SCH ×3 (08:58→17:44)
[2023-07-22] MEDS: LABETALOL HCL 200 MG TABLET (FP) PO SCH ×2 (09:23→21:28)
[2023-07-22] MEDS: hydrALAZINE HCL 50 MG TABLET (FP) PO SCH ×2 (09:23→21:28)
[2023-07-22] MEDS: amLODIPine BESYLATE 10 MG TABLET (FP) PO SCH (09:23)
[2023-07-22] MEDS ORDERED: SODIUM CHLORIDE 250 ML IV PRN (17:41)
[2023-07-22] MEDS: MIRTAZAPINE 15 MG TABLET (FP) PO SCH (21:26)
[2023-07-22] MEDS: ATORVASTATIN CA 40 MG TABLET (FP) PO SCH (21:26)
[2023-07-22] MEDS: INSULIN (LEVEMIR) 100 UNITS/ML UNITS SQ SCH (21:30)
[2023-07-23] MEDS: PIPERACILLIN/TAZOB 2.25 GM 2.25 GM in DEXTROSE 5%-WATER - 50 ML IVPB SCH ×3 (01:07→17:11)
[2023-07-23] MEDS: INSULIN ASPART SLIDING SCALE (NOVOLOG) 1 VIAL SQ SCH ×4 (06:05→21:51)
[2023-07-23] MEDS: SEVELAMER CARBONATE 800 MG TAB (FP) PO SCH ×3 (09:00→17:17)
[2023-07-23 10:46] LABS: BASO % 0.6 % (0-2.0); EOS % 3.1 % (0-4.5); HEMATOCRIT 33.9 % (35.4-49); HEMOGLOBIN 11.1 GM/dL (11.7-16.9); LYMPH % 20.2 % (8-40); MCH 27.5 pg (25.7-33.7); MCHC 32.8 g/dl (32.0-35.9); MEAN CELL VOLUME 83.8 fl (80-96); MEAN PLT VOLUME 11.9 fl (7.5-11.1); MONO % 8.2 % (3.8-10.2); NEUT % 67.9 % (42.8-82.8); PLATELET COUNT 140 10^3/uL (134-434); RBC 4.04 M/mm3 (4.00-5.60); RDW 16.2 % (11.9-15.9); WHITE BLOOD COUNT 7.5 K/mm3 (4.0-10.0)
[2023-07-23 10:54] LABS: CHLORIDE 94 mmol/L (98-107); POTASSIUM 3.7 mmol/L (3.5-5.1); SODIUM 135 mmol/L (136-145)
[2023-07-23 10:57] LABS: ANION GAP 8 mmol/L (4-13); CALCIUM 9.5 mg/dL (8.5-10.1); CO2 32 mmol/L (21-32); GLUCOSE,RANDOM 272 mg/dL (74-106)
[2023-07-23 10:58] LABS: ALBUMIN 3.6 g/dl (3.4-5.0); BLOOD UREA NITROGEN 38.7 mg/dL (7-18)
[2023-07-23 11:00] LABS: SGPT/ALT 14 U/L (13-61)
[2023-07-23 11:01] LABS: ALK PHOS 101 U/L (45-117); SGOT/AST 9 U/L (15-37)
[2023-07-23 11:02] LABS: BILIRUBIN,TOTAL 0.5 mg/dL (0.2-1); TOT PROT 8.1 g/dl (6.4-8.2)
[2023-07-23 11:05] LABS: CREATININE 7.8 mg/dL (0.55-1.3)
[2023-07-23] MEDS ORDERED: EPOETIN ALFA-EPBX 4,000 UNIT/ML VIAL IVPUSH ONE (14:00)
[2023-07-23] MEDS: LABETALOL HCL 200 MG TABLET (FP) PO SCH ×2 (17:07→21:48)
[2023-07-23] MEDS: hydrALAZINE HCL 50 MG TABLET (FP) PO SCH ×2 (17:07→21:48)
[2023-07-23] MEDS: amLODIPine BESYLATE 10 MG TABLET (FP) PO SCH (17:07)
[2023-07-23] MEDS: ATORVASTATIN CA 40 MG TABLET (FP) PO SCH (21:48)
[2023-07-23] MEDS: MIRTAZAPINE 15 MG TABLET (FP) PO SCH (21:48)
[2023-07-23] MEDS: INSULIN (LEVEMIR) 100 UNITS/ML UNITS SQ SCH (21:52)
[2023-07-24] MEDS: PIPERACILLIN/TAZOB 2.25 GM 2.25 GM in DEXTROSE 5%-WATER - 50 ML IVPB SCH ×2 (03:19→09:17)
[2023-07-24] MEDS: INSULIN ASPART SLIDING SCALE (NOVOLOG) 1 VIAL SQ SCH ×2 (06:20→11:14)
[2023-07-24] MEDS: SEVELAMER CARBONATE 800 MG TAB (FP) PO SCH ×2 (08:35→12:16)
[2023-07-24] MEDS: hydrALAZINE HCL 50 MG TABLET (FP) PO SCH (09:18)
[2023-07-24] MEDS: LABETALOL HCL 200 MG TABLET (FP) PO SCH (09:18)
[2023-07-24] MEDS: amLODIPine BESYLATE 10 MG TABLET (FP) PO SCH (09:18)
[2023-07-24 10:12] VITALS: BP 124/65; PULSE 90; RESP 19; TEMP 98.9
== END 2023-07-24 14:42 | disposition home or self-care (01) | DRG 659 ==
LOC: JER 18:49 → JERBED 21:53 → J8W 07-15 05:45 → J5S 07-18 19:10 → OBSVTOIN 07-21 11:05
PROVIDERS: ADMIT Internal Medicine; ATTEND Internal Medicine
PROC: 0TP530Z Removal of Drainage Device from Kidney, Percutaneous Approach (ICD-10-PCS; principal; 2023-07-22)
PROC: 0T9430Z Drainage of Left Kidney Pelvis with Drainage Device, Percutaneous Approach (ICD-10-PCS; 2023-07-22)
PROC: 0T9B30Z Drainage of Bladder with Drainage Device, Percutaneous Approach (ICD-10-PCS; 2023-07-22)
PROC: 5A1D70Z Performance of Urinary Filtration, Intermittent, Less than 6 Hours Per Day (ICD-10-PCS; 2023-07-23)
DX: T83.028A Displacement of other urinary catheter, initial encounter (principal); N18.6 End stage renal disease; U07.1 COVID-19; I12.0 Hypertensive chronic kidney disease with stage 5 chronic kidney disease or end stage renal disease; N39.0 Urinary tract infection, site not specified; N13.2 Hydronephrosis with renal and ureteral calculous obstruction; N13.0 Hydronephrosis with ureteropelvic junction obstruction; E11.42 Type 2 diabetes mellitus with diabetic polyneuropathy; Z99.2 Dependence on renal dialysis; Y83.9 Surgical procedure, unspecified as the cause of abnormal reaction of the patient, or of later complication, without mention of misadventure at the time of the procedure; E78.5 Hyperlipidemia, unspecified; I25.10 Atherosclerotic heart disease of native coronary artery without angina pectoris
CPT/HCPCS: 0241U-QW; 36415; 50435; 71045-TC-FY; 74176-TC; 75984-FY; 80053; 82962; 83735; 84100; 85025; 85610; 85730; 86704; 86803; 86850; 86900; 86901; 87086; 87186; 87340; 87517; 93005; 93010; 97116-GP; 97161-GP; 99285-25; G0378; G0463; J0248; Q5106

== ENCOUNTER 2023-10-25 11:41 | Inpatient (IN) | payer MEDICARE, OTHER ==
[2023-10-25 12:00] VITALS: BMI 28.3
[2023-10-25 13:22] LABS: BASO % 1.3 % (0-2.0); EOS % 4.4 % (0-4.5); HEMATOCRIT 30.1 % (35.4-49); LYMPH % 26.6 % (8-40); MCH 28.6 pg (25.7-33.7); MCHC 33.2 g/dl (32.0-35.9); MEAN CELL VOLUME 86.1 fl (80-96); MEAN PLT VOLUME 10.3 fl (7.5-11.1); MONO % 9.4 % (3.8-10.2); NEUT % 58.3 % (42.8-82.8); PLATELET COUNT 131 10^3/uL (134-434); RBC 3.49 M/mm3 (4.00-5.60); RDW 15.2 % (11.9-15.9)
[2023-10-25] MEDS ORDERED: ACETAMINOPHEN INJECTION 100 ML IVPB ONE (13:28)
[2023-10-25] MEDS ORDERED: PIPERACILLIN/TAZOB 3.375 GM 3.375 GM/50 ML BAG IVPB ONE (13:28)
[2023-10-25] MEDS: ACETAMINOPHEN 1000 MG/100 ML BAG IVPB ONE (13:35)
[2023-10-25 13:39] LABS: POTASSIUM 4.7 mmol/L (3.5-5.1)
[2023-10-25 13:41] LABS: ALBUMIN 3.6 g/dl (3.4-5.0); CALCIUM 9.6 mg/dL (8.5-10.1)
[2023-10-25 13:42] LABS: BLOOD UREA NITROGEN 45.8 mg/dL (7-18); MAGNESIUM 2.8 mg/dL (1.8-2.4)
[2023-10-25 13:44] LABS: PHOSPHOROUS 4.5 mg/dL (2.5-4.9)
[2023-10-25 13:46] LABS: BILIRUBIN,TOTAL 0.4 mg/dL (0.2-1); TOT PROT 7.5 g/dl (6.4-8.2)
[2023-10-25 14:51] LABS: EPI CELLS 2 /uL (0-25.1); HYALINE CASTS 2 /uL (0-3.1); PH,URINE 8.5 (5.0-8.0); URINE APPEARANCE CLOUDY; URINE BACTERIA 947 /uL (0-1359); URINE BILIRUBIN NEGATIVE (NEGATIVE); URINE COLOR YELLOW; URINE GLUCOSE (UA) NEGATIVE (NEGATIVE); URINE KETONE NEGATIVE (NEGATIVE); URINE LEUK ESTERASE 3+ (NEGATIVE); URINE NITRITE NEGATIVE (NEGATIVE); URINE PROTEIN 3+ (NEGATIVE); URINE RBC 27 /uL (0-23.9); URINE UROBILINOGEN 0.2 mg/dL (0.2-1.0); URINE WBC 634 /uL (0-25.8)
[2023-10-25] MEDS: PIPERACILLIN/TAZOB 3.375 GM 3.375 GM in DEXTROSE 5%-WATER - 50 ML IVPB ONE (14:55)
[2023-10-25] MEDS: INSULIN ASPART SLIDING SCALE (NOVOLOG) 1 VIAL SQ SCH (17:36)
[2023-10-25] MEDS ORDERED: PIPERACILLIN/TAZOB 2.25 GM 2.25 GM in DEXTROSE 5%-WATER - 50 ML IVPB SCH (18:00)
[2023-10-25] MEDS ORDERED: SEVELAMER CARBONATE 800 MG TAB (FP) ONE ×2 (18:24→18:25)
[2023-10-25] MEDS: SEVELAMER CARBONATE 800 MG TAB (FP) PO SCH (18:35)
[2023-10-25] MEDS ORDERED: PIPERACILLIN/TAZOB 2.25 GM 2.25 GM/50 ML BAG IVPB ONE (18:50)
[2023-10-25] MEDS: PIPERACILLIN/TAZOB 2.25 GM 2.25 GM in DEXTROSE 5%-WATER - 50 ML IVPB SCH (18:52)
[2023-10-25] MEDS ORDERED: PATIENT'S OWN MEDICATION (NON-FORMULARY) (Insulin Detemir [Levemir Flexpen] 100 UNIT/ML In SQ SCH (22:00)
[2023-10-25] MEDS ORDERED: PATIENT'S OWN MEDICATION (NON-FORMULARY) (Hydralazine Hcl [Hydralazine Hcl] 100 MG Tablet) PO SCH (22:00)
[2023-10-25] MEDS ORDERED: INSULIN (NOVOLOG) ASPART 100 UNITS/ML 10ML VIAL ONE (22:42)
[2023-10-25] MEDS ORDERED: HEPARIN NA (PORCINE) 5,000 UNITS/ML 1ML VIAL ONE (22:42)
[2023-10-25] MEDS ORDERED: INSULIN (LEVEMIR) 100 UNITS/ML UNITS SQ ONE (22:42)
[2023-10-25] MEDS ORDERED: LABETALOL HCL 200 MG TABLET (FP) ONE (22:42)
[2023-10-25] MEDS: HEPARIN NA (PORCINE) 5,000 UNITS/ML 1ML VIAL SQ SCH (22:59)
[2023-10-25] MEDS: INSULIN (LEVEMIR) 100 UNITS/ML UNITS SQ SCH (22:59)
[2023-10-25] MEDS: LABETALOL HCL 200 MG TABLET (FP) PO SCH (22:59)
[2023-10-25] MEDS: SODIUM BICARBONATE 650 MG TABLET PO SCH (23:00)
[2023-10-26] MEDS ORDERED: PIPERACILLIN/TAZOB 2.25 GM 2.25 GM/50 ML BAG IVPB ONE ×2 (02:23→14:21)
[2023-10-26 06:33] LABS: BASO % 0.6 % (0-2.0); HEMOGLOBIN 9.6 GM/dL (11.7-16.9); LYMPH % 26.4 % (8-40); MCH 28.3 pg (25.7-33.7); MCHC 32.2 g/dl (32.0-35.9); MEAN PLT VOLUME 11.2 fl (7.5-11.1); MONO % 10.4 % (3.8-10.2); NEUT % 56.6 % (42.8-82.8); PLATELET COUNT 124 10^3/uL (134-434); RBC 3.41 M/mm3 (4.00-5.60); RDW 15.5 % (11.9-15.9); WHITE BLOOD COUNT 7.2 K/mm3 (4.0-10.0)
[2023-10-26 06:39] LABS: CHLORIDE 100 mmol/L (98-107); POTASSIUM 4.3 mmol/L (3.5-5.1); SODIUM 137 mmol/L (136-145)
[2023-10-26 06:41] LABS: ALBUMIN 3.5 g/dl (3.4-5.0); ANION GAP 8 mmol/L (4-13); CALCIUM 9.3 mg/dL (8.5-10.1); CO2 29 mmol/L (21-32); GLUCOSE,RANDOM 98 mg/dL (74-106)
[2023-10-26 06:42] LABS: BLOOD UREA NITROGEN 52.2 mg/dL (7-18)
[2023-10-26 06:44] LABS: SGPT/ALT 14 U/L (13-61)
[2023-10-26 06:45] LABS: SGOT/AST 10 U/L (15-37)
[2023-10-26 06:46] LABS: BILIRUBIN,TOTAL 0.4 mg/dL (0.2-1)
[2023-10-26 06:48] LABS: ALK PHOS 84 U/L (45-117)
[2023-10-26] MEDS ORDERED: SODIUM CHLORIDE 250 ML IV PRN (07:16)
[2023-10-26] MEDS: EPOETIN ALFA-EPBX 3,000 UNIT/ML VIAL IVPUSH ONE (09:04)
[2023-10-26] MEDS ORDERED: ENOXAPARIN NA (PORCINE) 40 MG/0.4 ML DISP.SYRIN SQ SCH (10:00)
[2023-10-26] MEDS: amLODIPine BESYLATE 10 MG TABLET (FP) PO SCH (14:17)
[2023-10-26] MEDS: PIPERACILLIN/TAZOB 2.25 GM 2.25 GM in DEXTROSE 5%-WATER - 50 ML IVPB SCH (14:17)
[2023-10-27] MEDS ORDERED: SODIUM CHLORIDE 250 ML IV PRN (10:19)
[2023-10-28] MEDS: EPOETIN ALFA-EPBX 3,000 UNIT/ML VIAL IVPUSH ONE (09:23)
[2023-10-28] MEDS: CEFTRIAXONE 1 GM in DEXTROSE 5%-WATER - 50 ML IVPB SCH (12:57)
[2023-10-29 09:41] LABS: POTASSIUM 4.1 mmol/L (3.5-5.1)
[2023-10-29 09:43] LABS: BASO % 0.9 % (0-2.0); EOS % 3.4 % (0-4.5); HEMATOCRIT 31.7 % (35.4-49); HEMOGLOBIN 10.2 GM/dL (11.7-16.9); LYMPH % 29.1 % (8-40); MCH 28.3 pg (25.7-33.7); MCHC 32.2 g/dl (32.0-35.9); MEAN PLT VOLUME 11.4 fl (7.5-11.1); MONO % 9.5 % (3.8-10.2); NEUT % 57.1 % (42.8-82.8); PLATELET COUNT 131 10^3/uL (134-434); RDW 15.3 % (11.9-15.9); WHITE BLOOD COUNT 7.6 K/mm3 (4.0-10.0)
[2023-10-29 10:02] LABS: CALCIUM 9.6 mg/dL (8.5-10.1)
[2023-10-29 10:03] LABS: ALBUMIN 3.8 g/dl (3.4-5.0); BLOOD UREA NITROGEN 36.4 mg/dL (7-18)
[2023-10-29 10:06] LABS: CREATININE 5.9 mg/dL (0.55-1.3)
[2023-10-29 10:07] LABS: BILIRUBIN,TOTAL 0.5 mg/dL (0.2-1); TOT PROT 7.7 g/dl (6.4-8.2)
[2023-10-29 17:59] VITALS: RESP 18
[2023-10-30] MEDS ORDERED: INSULIN (LEVEMIR) 100 UNITS/ML UNITS SQ ONE (08:14)
[2023-10-30 08:33] VITALS: BP 136/72; PULSE 79; TEMP 97.9
[2023-10-30] MEDS ORDERED: CEFPODOXIME PROXETIL 100 MG TABLET PO ONE (11:03)
[2023-10-30] MEDS: CEFPODOXIME PROXETIL 100 MG TABLET PO ONE (11:40)
== END 2023-10-30 12:35 | disposition home or self-care (01) | DRG 689 ==
LOC: JER 11:41 → JERBED 13:54 → J6S 10-26 15:11
PROVIDERS: ADMIT Internal Medicine; ATTEND Internal Medicine
PROC: 5A1D70Z Performance of Urinary Filtration, Intermittent, Less than 6 Hours Per Day (ICD-10-PCS; principal; 2023-10-26)
PROC: 5A1D70Z Performance of Urinary Filtration, Intermittent, Less than 6 Hours Per Day (ICD-10-PCS; 2023-10-28)
PROC: 0T2BX0Z Change Drainage Device in Bladder, External Approach (ICD-10-PCS; 2023-10-28)
DX: N39.0 Urinary tract infection, site not specified (principal); N18.6 End stage renal disease; I12.0 Hypertensive chronic kidney disease with stage 5 chronic kidney disease or end stage renal disease; B96.1 Klebsiella pneumoniae [K. pneumoniae] as the cause of diseases classified elsewhere; I25.10 Atherosclerotic heart disease of native coronary artery without angina pectoris; I25.2 Old myocardial infarction; E78.5 Hyperlipidemia, unspecified; N40.0 Benign prostatic hyperplasia without lower urinary tract symptoms; K57.90 Diverticulosis of intestine, part unspecified, without perforation or abscess without bleeding; K21.9 Gastro-esophageal reflux disease without esophagitis; E11.22 Type 2 diabetes mellitus with diabetic chronic kidney disease; N13.9 Obstructive and reflux uropathy, unspecified; Z99.2 Dependence on renal dialysis; Z85.46 Personal history of malignant neoplasm of prostate; Z90.5 Acquired absence of kidney; Z93.59 Other cystostomy status
CPT/HCPCS: 36415; 80053; 81003; 82962; 83735; 84100; 85025; 86803; 87081; 87086; 87186; 87340; 93005; 93010; 99285-25; J0131; J1644; Q5106

== ENCOUNTER 2023-11-22 23:36 | Inpatient (IN) | payer MEDICARE, OTHER ==
[2023-11-23 00:59] LABS: BASO % 0.5 % (0-2.0); EOS % 1.9 % (0-4.5); HEMATOCRIT 29.1 % (35.4-49); HEMOGLOBIN 9.7 GM/dL (11.7-16.9); LYMPH % 11.5 % (8-40); MCH 28.9 pg (25.7-33.7); MCHC 33.5 g/dl (32.0-35.9); MEAN CELL VOLUME 86.3 fl (80-96); MEAN PLT VOLUME 10.2 fl (7.5-11.1); MONO % 11.1 % (3.8-10.2); PLATELET COUNT 114 10^3/uL (134-434); RBC 3.37 M/mm3 (4.00-5.60); RDW 15.7 % (11.9-15.9); WHITE BLOOD COUNT 9.8 K/mm3 (4.0-10.0)
[2023-11-23] MEDS ORDERED: ACETAMINOPHEN INJECTION 100 ML IVPB ONE (01:01)
[2023-11-23] MEDS ORDERED: LIDOCAINE 4% PATCH TP ONE (01:01)
[2023-11-23] MEDS: LIDOCAINE 4% PATCH TP ONE (01:08)
[2023-11-23] MEDS: ACETAMINOPHEN 1000 MG/100 ML BAG IVPB ONE (01:08)
[2023-11-23 01:26] LABS: CHLORIDE 100 mmol/L (98-107); POTASSIUM 4.7 mmol/L (3.5-5.1); SODIUM 132 mmol/L (136-145)
[2023-11-23 01:29] LABS: ALBUMIN 3.7 g/dl (3.4-5.0); ANION GAP 8 mmol/L (4-13); BLOOD UREA NITROGEN 53.1 mg/dL (7-18); CALCIUM 9.6 mg/dL (8.5-10.1); CO2 24 mmol/L (21-32); GLUCOSE,RANDOM 122 mg/dL (74-106)
[2023-11-23 01:32] LABS: SGOT/AST 14 U/L (15-37); SGPT/ALT 18 U/L (13-61)
[2023-11-23 01:33] LABS: BILIRUBIN,TOTAL 0.5 mg/dL (0.2-1); TOT PROT 7.6 g/dl (6.4-8.2)
[2023-11-23 01:35] LABS: ALK PHOS 108 U/L (45-117)
[2023-11-23 01:36] LABS: CREATININE 8.2 mg/dL (0.55-1.3)
[2023-11-23 02:32] LABS: EPI CELLS 1 /uL (0-25.1); HYALINE CASTS 2 /uL (0-3.1); URINE APPEARANCE CLOUDY; URINE BACTERIA >9,000 /uL (0-1359); URINE BILIRUBIN NEGATIVE (NEGATIVE); URINE COLOR YELLOW; URINE GLUCOSE (UA) NEGATIVE (NEGATIVE); URINE KETONE NEGATIVE (NEGATIVE); URINE LEUK ESTERASE 3+ (NEGATIVE); URINE NITRITE NEGATIVE (NEGATIVE); URINE PROTEIN 3+ (NEGATIVE); URINE RBC 192 /uL (0-23.9); URINE UROBILINOGEN 0.2 mg/dL (0.2-1.0); URINE WBC 3649 /uL (0-25.8)
[2023-11-23] MEDS ORDERED: PIPERACILLIN/TAZOB 3.375 GM 3.375 GM/50 ML BAG IVPB ONE (04:23)
[2023-11-23] MEDS: PIPERACILLIN/TAZOB 3.375 GM 3.375 GM in DEXTROSE 5%-WATER - 50 ML IVPB ONE (04:30)
[2023-11-23 05:14] LABS: YEAST NONE SEEN (NEGATIVE)
[2023-11-23] MEDS ORDERED: DOCUSATE SODIUM 100 MG CAPSULE (FP) PO PRN (05:31)
[2023-11-23 06:38] LABS: MAGNESIUM 2.6 mg/dL (1.8-2.4)
[2023-11-23 06:42] LABS: PHOSPHOROUS 4.6 mg/dL (2.5-4.9)
[2023-11-23] MEDS: INSULIN ASPART SLIDING SCALE (NOVOLOG) 1 VIAL SQ SCH (07:36)
[2023-11-23] MEDS ORDERED: ALBUTEROL SO4 HFA INHALER IH PRN (09:25)
[2023-11-23] MEDS ORDERED: PIPERACILLIN/TAZOB 2.25 GM 2.25 GM in DEXTROSE 5%-WATER - 50 ML IVPB SCH (10:00)
[2023-11-23] MEDS ORDERED: SODIUM CHLORIDE 250 ML IV PRN (10:28)
[2023-11-23] MEDS ORDERED: INSULIN (NOVOLOG) ASPART 100 UNITS/ML 10ML VIAL ONE ×2 (11:09→21:13)
[2023-11-23] MEDS: hydrALAZINE HCL 50 MG TABLET (FP) PO SCH (11:15)
[2023-11-23] MEDS: SEVELAMER CARBONATE 800 MG TAB (FP) PO SCH (11:15)
[2023-11-23] MEDS: amLODIPine BESYLATE 10 MG TABLET (FP) PO SCH (11:15)
[2023-11-23] MEDS: LABETALOL HCL 200 MG TABLET (FP) PO SCH (11:15)
[2023-11-23] MEDS: PIPERACILLIN/TAZOB 2.25 GM 2.25 GM in DEXTROSE 5%-WATER - 50 ML IVPB SCH (11:15)
[2023-11-23] MEDS: LIDOCAINE PATCH REMOVAL MC ONE (13:22)
[2023-11-23] MEDS: SODIUM BICARBONATE 650 MG TABLET PO SCH (13:23)
[2023-11-23] MEDS: EPOETIN ALFA-EPBX 4,000 UNIT/ML VIAL IVPUSH ONE (16:04)
[2023-11-23] MEDS: ACETAMINOPHEN 325 MG TABLET (FP) PO PRN (17:44)
[2023-11-23 21:04] VITALS: BMI 29.8
[2023-11-23] MEDS: MIRTAZAPINE 15 MG TABLET (FP) PO SCH (21:29)
[2023-11-24] MEDS: PIPERACILLIN/TAZOB 2.25 GM 2.25 GM in DEXTROSE 5%-WATER - 50 ML IVPB SCH (09:37)
[2023-11-24] MEDS: ENOXAPARIN NA (PORCINE) 30 MG/0.3 ML DISP.SYRIN SQ SCH (09:37)
[2023-11-24 09:55] LABS: BASO % 0.7 % (0-2.0); EOS % 2.9 % (0-4.5); HEMATOCRIT 29.7 % (35.4-49); LYMPH % 17.8 % (8-40); MCH 29.3 pg (25.7-33.7); MCHC 33.7 g/dl (32.0-35.9); MEAN CELL VOLUME 86.9 fl (80-96); MEAN PLT VOLUME 10.8 fl (7.5-11.1); NEUT % 66.6 % (42.8-82.8); PLATELET COUNT 124 10^3/uL (134-434); RBC 3.41 M/mm3 (4.00-5.60); RDW 15.6 % (11.9-15.9); WHITE BLOOD COUNT 8.8 K/mm3 (4.0-10.0)
[2023-11-24 10:01] LABS: INR 1.05 (0.83-1.09); PROTHROMBIN TIME (PATIENT) 11.9 SEC (9.7-13.0)
[2023-11-24 10:04] LABS: ACTIVATED PTT 38.2 SECONDS (25.2-36.5)
[2023-11-24 10:33] LABS: POTASSIUM 3.9 mmol/L (3.5-5.1)
[2023-11-24 10:50] LABS: CALCIUM 9.2 mg/dL (8.5-10.1)
[2023-11-24] MEDS ORDERED: INSULIN (NOVOLOG) ASPART 100 UNITS/ML 10ML VIAL ONE ×2 (12:15→18:57)
[2023-11-25] MEDS ORDERED: SODIUM CHLORIDE 250 ML IV PRN (07:15)
[2023-11-25] MEDS: EPOETIN ALFA-EPBX 4,000 UNIT/ML VIAL IVPUSH ONE (08:52)
[2023-11-25] MEDS ORDERED: INSULIN (NOVOLOG) ASPART 100 UNITS/ML 10ML VIAL ONE (21:58)
[2023-11-25 23:04] VITALS: RESP 18
[2023-11-26] MEDS ORDERED: INSULIN (NOVOLOG) ASPART 100 UNITS/ML 10ML VIAL ONE ×2 (06:08→11:32)
[2023-11-26 09:35] VITALS: BP 139/62; PULSE 75; TEMP 98.2
== END 2023-11-26 02:00 | disposition home or self-care (01) | DRG 689 ==
LOC: JER 23:36 → JERBED 11-23 05:30 → J8W 11-23 09:49
PROVIDERS: ADMIT Internal Medicine; ATTEND Internal Medicine
PROC: 5A1D70Z Performance of Urinary Filtration, Intermittent, Less than 6 Hours Per Day (ICD-10-PCS; 2023-11-23)
PROC: 0T25X0Z Change Drainage Device in Kidney, External Approach (ICD-10-PCS; principal; 2023-11-25)
DX: N39.0 Urinary tract infection, site not specified (principal); N18.6 End stage renal disease; I12.0 Hypertensive chronic kidney disease with stage 5 chronic kidney disease or end stage renal disease; E87.1 Hypo-osmolality and hyponatremia; I25.10 Atherosclerotic heart disease of native coronary artery without angina pectoris; I10 Essential (primary) hypertension; Z99.2 Dependence on renal dialysis; E11.22 Type 2 diabetes mellitus with diabetic chronic kidney disease; E11.40 Type 2 diabetes mellitus with diabetic neuropathy, unspecified; K21.9 Gastro-esophageal reflux disease without esophagitis; E78.5 Hyperlipidemia, unspecified; D69.6 Thrombocytopenia, unspecified; D64.9 Anemia, unspecified; N13.9 Obstructive and reflux uropathy, unspecified; D63.1 Anemia in chronic kidney disease
CPT/HCPCS: 36415; 50435; 74176-TC; 80048; 80053; 81003; 82962; 83036; 83735; 84100; 85025; 85610; 85730; 87040; 87086; 87186; 99285-25; J0131; Q5106

== ENCOUNTER 2023-11-30 14:15 | Observation (INO) | payer MEDICARE, OTHER ==
[2023-11-30 15:13] LABS: BASO % 0.4 % (0-2.0); EOS % 0.5 % (0-4.5); HEMATOCRIT 30.2 % (35.4-49); HEMOGLOBIN 9.8 GM/dL (11.7-16.9); LYMPH % 6.3 % (8-40); MCH 28.1 pg (25.7-33.7); MCHC 32.5 g/dl (32.0-35.9); MEAN CELL VOLUME 86.2 fl (80-96); MEAN PLT VOLUME 10.6 fl (7.5-11.1); MONO % 6.8 % (3.8-10.2); PLATELET COUNT 160 10^3/uL (134-434); RDW 15.1 % (11.9-15.9); WHITE BLOOD COUNT 11.1 K/mm3 (4.0-10.0)
[2023-11-30 15:17] LABS: INR 1.01 (0.83-1.09); PROTHROMBIN TIME (PATIENT) 11.4 SEC (9.7-13.0)
[2023-11-30 15:20] LABS: ACTIVATED PTT 36.4 SECONDS (25.2-36.5)
[2023-11-30 15:31] LABS: CALCIUM 8.9 mg/dL (8.5-10.1)
[2023-11-30] MEDS ORDERED: ACETAMINOPHEN INJECTION 100 ML IVPB ONE (15:31)
[2023-11-30] MEDS ORDERED: VANCOMYCIN 1 GRAM (PRE-DOCKED) 1,000 MG/250 ML BAG IVPB ONE (15:31)
[2023-11-30 15:32] LABS: ALBUMIN 3.4 g/dl (3.4-5.0); BLOOD UREA NITROGEN 15.2 mg/dL (7-18)
[2023-11-30] MEDS ORDERED: MEROPENEM 500 MG VIAL (RESTRICTED TO ID) IVPB ONE (15:32)
[2023-11-30 15:34] LABS: VENOUS BASE EXCESS 4.1 mmol/L (-2-2); VENOUS O2 SATURATION 66.3 % (70-80); VENOUS PCO2 36.6 mmHg (38-52); VENOUS PH 7.494 (7.310-7.410)
[2023-11-30 15:35] LABS: CREATININE 4.1 mg/dL (0.55-1.3)
[2023-11-30 15:36] LABS: TOT PROT 7.8 g/dl (6.4-8.2)
[2023-11-30 15:37] LABS: BILIRUBIN,TOTAL 0.5 mg/dL (0.2-1)
[2023-11-30] MEDS: ACETAMINOPHEN 1000 MG/100 ML BAG IVPB ONE (15:37)
[2023-11-30 15:38] LABS: EPI CELLS 3 /uL (0-25.1); HYALINE CASTS 4 /uL (0-3.1); PH,URINE 8.5 (5.0-8.0); URINE APPEARANCE TURBID; URINE BACTERIA 148 /uL (0-1359); URINE BILIRUBIN NEGATIVE (NEGATIVE); URINE COLOR YELLOW; URINE GLUCOSE (UA) NEGATIVE (NEGATIVE); URINE KETONE NEGATIVE (NEGATIVE); URINE LEUK ESTERASE 2+ (NEGATIVE); URINE NITRITE NEGATIVE (NEGATIVE); URINE PROTEIN 4+ (NEGATIVE); URINE RBC 55 /uL (0-23.9); URINE UROBILINOGEN 0.2 mg/dL (0.2-1.0); URINE WBC 584 /uL (0-25.8)
[2023-11-30] MEDS: SODIUM CHLORIDE 0.9% 500 ML INFUS.BAG IV ONE (15:38)
[2023-11-30] MEDS: MEROPENEM 500 MG in DEXTROSE 5%-WATER 100 ML IVPB ONE (15:38)
[2023-11-30] MEDS: VANCOMYCIN 1,000 MG in DEXTROSE 5%-WATER - 250 ML IVPB ONE (17:08)
[2023-12-01] MEDS: ACETAMINOPHEN 1000 MG/100 ML BAG IVPB ONE (02:48)
[2023-12-01] MEDS ORDERED: DOCUSATE SODIUM 100 MG CAPSULE (FP) PO PRN ×2 (04:15→10:27)
[2023-12-01] MEDS ORDERED: MEROPENEM 500 MG VIAL (RESTRICTED TO ID) IVPB ONE ×2 (05:18→17:01)
[2023-12-01] MEDS: MEROPENEM 500 MG in DEXTROSE 5%-WATER 100 ML IVPB SCH ×2 (05:18→17:45)
[2023-12-01 06:23] LABS: BASO % 0.5 % (0-2.0); HEMATOCRIT 27.8 % (35.4-49); HEMOGLOBIN 9.1 GM/dL (11.7-16.9); LYMPH % 13.2 % (8-40); MCH 28.5 pg (25.7-33.7); MCHC 32.8 g/dl (32.0-35.9); MEAN CELL VOLUME 86.9 fl (80-96); MEAN PLT VOLUME 10.6 fl (7.5-11.1); NEUT % 73.3 % (42.8-82.8); PLATELET COUNT 139 10^3/uL (134-434); WHITE BLOOD COUNT 10.1 K/mm3 (4.0-10.0)
[2023-12-01 06:39] LABS: POTASSIUM 3.7 mmol/L (3.5-5.1)
[2023-12-01 06:40] LABS: CALCIUM 8.7 mg/dL (8.5-10.1)
[2023-12-01 06:41] LABS: BLOOD UREA NITROGEN 30.9 mg/dL (7-18)
[2023-12-01 06:44] LABS: CREATININE 5.8 mg/dL (0.55-1.3)
[2023-12-01] MEDS: SEVELAMER CARBONATE 800 MG TAB (FP) PO SCH ×2 (08:00→11:58)
[2023-12-01] MEDS: LABETALOL HCL 200 MG TABLET (FP) PO SCH ×2 (11:57→22:09)
[2023-12-01] MEDS: amLODIPine BESYLATE 10 MG TABLET (FP) PO SCH (11:58)
[2023-12-01] MEDS: hydrALAZINE HCL 50 MG TABLET (FP) PO SCH ×2 (11:58→22:08)
[2023-12-01] MEDS: INSULIN ASPART SLIDING SCALE (NOVOLOG) 1 VIAL SQ SCH (12:13)
[2023-12-01] MEDS ORDERED: PATIENT'S OWN MEDICATION (NON-FORMULARY) (Sevelamer Hcl [Sevelamer Hcl] 800 MG Tablet) PO SCH (14:00)
[2023-12-01] MEDS: SODIUM BICARBONATE 650 MG TABLET PO SCH (14:03)
[2023-12-01] MEDS ORDERED: INSULIN (NOVOLOG) ASPART 100 UNITS/ML 10ML VIAL SQ SCH (16:30)
[2023-12-01] MEDS ORDERED: VANCOMYCIN 1,000 MG in DEXTROSE 5%-WATER - 250 ML IVPB SCH (17:00)
[2023-12-01 21:57] VITALS: BMI 30.9
[2023-12-01] MEDS ORDERED: hydrALAZINE HCL 50 MG TABLET (FP) PO SCH (22:00)
[2023-12-01] MEDS ORDERED: MIRTAZAPINE 15 MG TABLET (FP) PO SCH (22:00)
[2023-12-01] MEDS: ATORVASTATIN CA 40 MG TABLET (FP) PO SCH (22:08)
[2023-12-01] MEDS: MIRTAZAPINE 15 MG TABLET (FP) PO SCH (22:09)
[2023-12-02] MEDS ORDERED: MEROPENEM 500 MG in DEXTROSE 5%-WATER 100 ML IVPB SCH (05:00)
[2023-12-02 09:23] LABS: BASO % 1.2 % (0-2.0); EOS % 3.8 % (0-4.5); HEMATOCRIT 27.3 % (35.4-49); HEMOGLOBIN 8.9 GM/dL (11.7-16.9); LYMPH % 16.7 % (8-40); MCH 28.3 pg (25.7-33.7); MCHC 32.6 g/dl (32.0-35.9); MEAN CELL VOLUME 86.9 fl (80-96); MEAN PLT VOLUME 10.5 fl (7.5-11.1); MONO % 9.2 % (3.8-10.2); NEUT % 69.1 % (42.8-82.8); PLATELET COUNT 152 10^3/uL (134-434); RBC 3.14 M/mm3 (4.00-5.60); WHITE BLOOD COUNT 10.2 K/mm3 (4.0-10.0)
[2023-12-02 09:51] LABS: CHLORIDE 99 mmol/L (98-107); POTASSIUM 3.7 mmol/L (3.5-5.1); SODIUM 134 mmol/L (136-145)
[2023-12-02 09:52] LABS: CALCIUM 9.1 mg/dL (8.5-10.1)
[2023-12-02 09:53] LABS: ANION GAP 12 mmol/L (4-13); BLOOD UREA NITROGEN 52.1 mg/dL (7-18); CO2 24 mmol/L (21-32); GLUCOSE,RANDOM 188 mg/dL (74-106)
[2023-12-02 09:58] LABS: CREATININE 7.8 mg/dL (0.55-1.3)
[2023-12-02] MEDS ORDERED: SODIUM CHLORIDE 250 ML IV PRN (10:00)
[2023-12-02] MEDS: EPOETIN ALFA-EPBX 3,000 UNIT/ML VIAL IVPUSH ONE (11:34)
[2023-12-02] MEDS: amLODIPine BESYLATE 10 MG TABLET (FP) PO SCH (12:33)
[2023-12-02] MEDS ORDERED: MEROPENEM 500 MG VIAL (RESTRICTED TO ID) IVPB ONE (16:49)
[2023-12-02] MEDS ORDERED: VANCOMYCIN 1,000 MG in DEXTROSE 5%-WATER - 250 ML IVPB SCH (17:00)
[2023-12-05 05:51] VITALS: RESP 18
[2023-12-05 10:48] LABS: BASO % 1.3 % (0-2.0); EOS % 3.5 % (0-4.5); HEMATOCRIT 26.2 % (35.4-49); HEMOGLOBIN 8.6 GM/dL (11.7-16.9); LYMPH % 19.1 % (8-40); MCH 28.2 pg (25.7-33.7); MEAN CELL VOLUME 85.4 fl (80-96); MEAN PLT VOLUME 10.9 fl (7.5-11.1); MONO % 5.6 % (3.8-10.2); NEUT % 70.5 % (42.8-82.8); PLATELET COUNT 186 10^3/uL (134-434); RBC 3.06 M/mm3 (4.00-5.60); RDW 15.1 % (11.9-15.9); WHITE BLOOD COUNT 9.2 K/mm3 (4.0-10.0)
[2023-12-05 11:16] LABS: CHLORIDE 96 mmol/L (98-107); POTASSIUM 3.6 mmol/L (3.5-5.1); SODIUM 134 mmol/L (136-145)
[2023-12-05 11:18] LABS: ANION GAP 11 mmol/L (4-13); CALCIUM 9.3 mg/dL (8.5-10.1); CO2 26 mmol/L (21-32); GLUCOSE,RANDOM 179 mg/dL (74-106)
[2023-12-05 11:24] LABS: CREATININE 9.5 mg/dL (0.55-1.3)
[2023-12-05] MEDS: EPOETIN ALFA-EPBX 3,000 UNIT/ML VIAL IVPUSH ONE (11:56)
[2023-12-05 12:54] VITALS: BP 138/81; PULSE 80
[2023-12-05 15:52] VITALS: TEMP 98.6
== END 2023-12-05 15:43 | disposition home health service (06) ==
LOC: JER 14:15 → JERBED 22:06 → INTOOBSV 22:06 → UNDOADMOB 22:06 → JERBED 12-01 09:33 → J5S 12-01 09:33 → JERBED 12-01 10:59 → J5S 12-02 12:31
PROVIDERS: ADMIT Internal Medicine; ATTEND Internal Medicine
PROC: 3E033NZ Introduction of Analgesics, Hypnotics, Sedatives into Peripheral Vein, Percutaneous Approach (ICD-10-PCS; principal; 2023-12-01)
PROC: 3E033GC Introduction of Other Therapeutic Substance into Peripheral Vein, Percutaneous Approach (ICD-10-PCS; 2023-12-01)
PROC: 3E03329 Introduction of Other Anti-infective into Peripheral Vein, Percutaneous Approach (ICD-10-PCS; 2023-12-01)
PROC: 3E0337Z Introduction of Electrolytic and Water Balance Substance into Peripheral Vein, Percutaneous Approach (ICD-10-PCS; 2023-12-01)
DX: A41.9 Sepsis, unspecified organism (principal); D64.9 Anemia, unspecified; I25.10 Atherosclerotic heart disease of native coronary artery without angina pectoris; E11.9 Type 2 diabetes mellitus without complications; E11.22 Type 2 diabetes mellitus with diabetic chronic kidney disease; I13.11 Hypertensive heart and chronic kidney disease without heart failure, with stage 5 chronic kidney disease, or end stage renal disease; N18.6 End stage renal disease; Z99.2 Dependence on renal dialysis; Z85.46 Personal history of malignant neoplasm of prostate; K21.9 Gastro-esophageal reflux disease without esophagitis; Z87.440 Personal history of urinary (tract) infections; Z96.0 Presence of urogenital implants; N13.30 Unspecified hydronephrosis; Z87.891 Personal history of nicotine dependence; I25.2 Old myocardial infarction; Z95.5 Presence of coronary angioplasty implant and graft; E78.00 Pure hypercholesterolemia, unspecified; R42 Dizziness and giddiness; Z90.6 Acquired absence of other parts of urinary tract; Z88.8 Allergy status to other drugs, medicaments and biological substances
CPT/HCPCS: 0241U-QW; 36415; 71045-TC-FY; 74176-TC; 80048; 80053; 81003; 82803; 82962; 83605; 84484; 85025; 85610; 85730; 86850; 86900; 86901; 87040; 87086; 87340; 87517; 93005; 93010; 96361; 96365; 96366; 96367; 96375; 96376; 99285-25; G0378; G0480; J0131; Q5106

== ENCOUNTER → 2024-02-29 | Day surgery (SDC) | payer MEDICARE, OTHER | END | disposition home or self-care (01) | LOC: JRADIR 10:45 | PROVIDERS: ATTEND Urology | PROC: 0T9B3ZZ Drainage of Bladder, Percutaneous Approach (ICD-10-PCS; principal; 2024-02-29) | DX: N31.9 Neuromuscular dysfunction of bladder, unspecified (principal) | CPT/HCPCS: 51102 ==

== ENCOUNTER → 2024-03-13 | Day surgery (SDC) | payer MEDICARE, OTHER ==
[2024-03-13 11:28] VITALS: RESP 12
[2024-03-13 12:02] VITALS: PULSE 82
[2024-03-13 12:19] VITALS: BP 151/78
== END | disposition home or self-care (01) ==
LOC: JRADIR 09:45
PROVIDERS: ATTEND Urology
PROC: 0T25X0Z Change Drainage Device in Kidney, External Approach (ICD-10-PCS; principal; 2024-03-13)
DX: Z43.6 Encounter for attention to other artificial openings of urinary tract (principal)
CPT/HCPCS: 50435

== ENCOUNTER 2024-04-30 13:38 | Emergency (ER) | payer MEDICARE, OTHER ==
[2024-04-30 14:45] VITALS: TEMP 98.3; BMI 29.7
[2024-04-30 16:22] LABS: BASO % 0.7 % (0-2.0); EOS % 3.6 % (0-4.5); HEMATOCRIT 31.2 % (35.4-49); HEMOGLOBIN 10.3 GM/dL (11.7-16.9); LYMPH % 16.5 % (8-40); MCH 28.1 pg (25.7-33.7); MCHC 32.8 g/dl (32.0-35.9); MEAN CELL VOLUME 85.6 fl (80-96); MEAN PLT VOLUME 9.8 fl (7.5-11.1); MONO % 6.5 % (3.8-10.2); NEUT % 72.7 % (42.8-82.8); PLATELET COUNT 136 10^3/uL (134-434); RBC 3.65 M/mm3 (4.00-5.60); RDW 16.1 % (11.9-15.9); WHITE BLOOD COUNT 9.3 K/mm3 (4.0-10.0)
[2024-04-30 16:34] LABS: POTASSIUM 4.1 mmol/L (3.5-5.1)
[2024-04-30 16:36] LABS: CALCIUM 9.2 mg/dL (8.5-10.1)
[2024-04-30 16:37] LABS: ALBUMIN 3.6 g/dl (3.4-5.0); BLOOD UREA NITROGEN 26.4 mg/dL (7-18)
[2024-04-30 16:40] LABS: CREATININE 4.4 mg/dL (0.55-1.3)
[2024-04-30 16:41] VITALS: RESP 18
[2024-04-30 16:42] LABS: BILIRUBIN,TOTAL 0.3 mg/dL (0.2-1); TOT PROT 7.6 g/dl (6.4-8.2)
[2024-04-30 17:27] VITALS: BP 137/79; PULSE 77
== END 2024-04-30 17:20 | disposition home or self-care (01) ==
LOC: JER 13:38
DX: R00.0 Tachycardia, unspecified (principal)
CPT/HCPCS: 36415; 80053; 85025; 93005; 93010; 99284-25

== ENCOUNTER 2024-06-27 09:38 | Observation (INO) | payer MEDICARE, OTHER ==
[2024-06-27 09:57] VITALS: BMI 29.2
[2024-06-27 13:48] LABS: BASO % 1.1 % (0-2.0); EOS % 4.6 % (0-4.5); LYMPH % 24.3 % (8-40); MCH 27.5 pg (25.7-33.7); MCHC 32.2 g/dl (32.0-35.9); MEAN CELL VOLUME 85.2 fl (80-96); MEAN PLT VOLUME 8.6 fl (7.5-11.1); MONO % 10.6 % (3.8-10.2); NEUT % 59.4 % (42.8-82.8); PLATELET COUNT 140 10^3/uL (134-434); RBC 3.64 M/mm3 (4.00-5.60); RDW 15.9 % (11.9-15.9); WHITE BLOOD COUNT 7.2 K/mm3 (4.0-10.0)
[2024-06-27 13:59] LABS: INR 0.95 (0.83-1.09); PROTHROMBIN TIME (PATIENT) 10.9 SEC (9.7-13.0)
[2024-06-27 14:03] LABS: EPI CELLS 5 /uL (0-25.1); HYALINE CASTS 3 /uL (0-3.1); URINE APPEARANCE CLOUDY; URINE BACTERIA >9,000 /uL (0-1359); URINE BILIRUBIN NEGATIVE (NEGATIVE); URINE COLOR YELLOW; URINE GLUCOSE (UA) NEGATIVE (NEGATIVE); URINE KETONE NEGATIVE (NEGATIVE); URINE LEUK ESTERASE 3+ (NEGATIVE); URINE NITRITE NEGATIVE (NEGATIVE); URINE PROTEIN 3+ (NEGATIVE); URINE RBC 48 /uL (0-23.9); URINE UROBILINOGEN 0.2 mg/dL (0.2-1.0); URINE WBC 2452 /uL (0-25.8)
[2024-06-27 14:15] LABS: POTASSIUM 3.9 mmol/L (3.5-5.1)
[2024-06-27 14:17] LABS: ALBUMIN 3.5 g/dl (3.4-5.0); BLOOD UREA NITROGEN 33.7 mg/dL (7-18); CALCIUM 9.5 mg/dL (8.5-10.1)
[2024-06-27 14:20] LABS: CREATININE 6.6 mg/dL (0.55-1.3)
[2024-06-27 14:21] LABS: BILIRUBIN,TOTAL 0.5 mg/dL (0.2-1); TOT PROT 7.4 g/dl (6.4-8.2)
[2024-06-27] MEDS ORDERED: ACETAMINOPHEN 325 MG TABLET (FP) ONE (15:59)
[2024-06-27] MEDS ORDERED: CEFTRIAXONE 1 G/50 ML PREMIX 50 ML IVPB ONE (15:59)
[2024-06-27] MEDS: CEFTRIAXONE 1 GM in DEXTROSE 5%-WATER - 100 ML IVPB ONE (16:12)
[2024-06-27] MEDS: ACETAMINOPHEN 325 MG TABLET (FP) PO ONE (16:13)
[2024-06-28] MEDS ORDERED: DOCUSATE SODIUM 100 MG CAPSULE (FP) PO PRN (00:16)
[2024-06-28] MEDS: LABETALOL HCL 200 MG TABLET (FP) PO SCH (01:40)
[2024-06-28] MEDS: hydrALAZINE HCL 50 MG TABLET (FP) PO SCH (01:40)
[2024-06-28] MEDS: ACETAMINOPHEN 325 MG TABLET (FP) PO PRN (01:41)
[2024-06-28] MEDS: INSULIN ASPART SLIDING SCALE (NOVOLOG) 1 VIAL SQ SCH (06:25)
[2024-06-28 09:52] LABS: BASO % 0.6 % (0-2.0); EOS % 4.9 % (0-4.5); LYMPH % 21.5 % (8-40); MCH 27.4 pg (25.7-33.7); MCHC 32.3 g/dl (32.0-35.9); MEAN CELL VOLUME 84.9 fl (80-96); MEAN PLT VOLUME 10.1 fl (7.5-11.1); MONO % 9.7 % (3.8-10.2); NEUT % 63.3 % (42.8-82.8); PLATELET COUNT 138 10^3/uL (134-434); RBC 3.66 M/mm3 (4.00-5.60); RDW 16.1 % (11.9-15.9); WHITE BLOOD COUNT 6.8 K/mm3 (4.0-10.0)
[2024-06-28 10:19] LABS: CHLORIDE 102 mmol/L (98-107); SODIUM 136 mmol/L (136-145)
[2024-06-28 10:22] LABS: ANION GAP 10 mmol/L (4-13); BLOOD UREA NITROGEN 47.8 mg/dL (7-18); CALCIUM 9.1 mg/dL (8.5-10.1); CO2 25 mmol/L (21-32); GLUCOSE,RANDOM 131 mg/dL (74-106)
[2024-06-28] MEDS: amLODIPine BESYLATE 10 MG TABLET (FP) PO SCH (10:24)
[2024-06-28] MEDS: CEFTRIAXONE 1 G/50 ML PREMIX 50 ML IVPB SCH (10:25)
[2024-06-28 10:49] LABS: CREATININE 8.1 mg/dL (0.55-1.3)
[2024-06-28] MEDS: ATORVASTATIN CA 40 MG TABLET (FP) PO SCH (22:10)
[2024-06-28] MEDS: MIRTAZAPINE 15 MG TABLET (FP) PO SCH (22:10)
[2024-06-29 09:37] VITALS: TEMP 98.1
[2024-06-29] MEDS ORDERED: SODIUM CHLORIDE 250 ML IV PRN ×2 (10:11→13:46)
[2024-06-29] MEDS: EPOETIN ALFA-EPBX 3,000 UNIT/ML VIAL IVPUSH ONE (14:18)
[2024-06-29 15:54] VITALS: RESP 18
[2024-06-29 17:01] VITALS: BP 149/76; PULSE 78
== END 2024-06-29 17:10 | disposition home or self-care (01) ==
LOC: JER 09:38 → JERBED 17:02 → UNDOADMOB 17:02 → INTOOBSV 17:02 → J5S 21:34 → JERBED 21:34 → J5S 06-28 09:29 → JERBED 06-28 09:29
PROVIDERS: ADMIT Internal Medicine; ATTEND Internal Medicine
PROC: 0T25X0Z Change Drainage Device in Kidney, External Approach (ICD-10-PCS; principal; 2024-06-28)
PROC: 3E03329 Introduction of Other Anti-infective into Peripheral Vein, Percutaneous Approach (ICD-10-PCS; 2024-06-28)
PROC: 3E033GC Introduction of Other Therapeutic Substance into Peripheral Vein, Percutaneous Approach (ICD-10-PCS; 2024-06-28)
PROC: 3E013VG Introduction of Insulin into Subcutaneous Tissue, Percutaneous Approach (ICD-10-PCS; 2024-06-28)
DX: Z46.6 Encounter for fitting and adjustment of urinary device (principal); N39.0 Urinary tract infection, site not specified; E11.22 Type 2 diabetes mellitus with diabetic chronic kidney disease; C61 Malignant neoplasm of prostate; I13.11 Hypertensive heart and chronic kidney disease without heart failure, with stage 5 chronic kidney disease, or end stage renal disease; N18.6 End stage renal disease; N31.2 Flaccid neuropathic bladder, not elsewhere classified; I11.9 Hypertensive heart disease without heart failure; Z99.2 Dependence on renal dialysis; K21.9 Gastro-esophageal reflux disease without esophagitis; D64.9 Anemia, unspecified; E78.5 Hyperlipidemia, unspecified; Z90.79 Acquired absence of other genital organ(s); N13.30 Unspecified hydronephrosis; Z95.5 Presence of coronary angioplasty implant and graft; I25.2 Old myocardial infarction; Z88.8 Allergy status to other drugs, medicaments and biological substances
CPT/HCPCS: 36415; 50435; 74176-TC; 80048; 80053; 81003; 82962; 85025; 85610; 86704; 86803; 86850; 86900; 86901; 87086; 87340; 96365; 96367; 96372; 96375; 99285-25; G0378; Q5106

== ENCOUNTER 2024-07-14 17:16 | Emergency (ER) | payer MEDICARE, OTHER ==
[2024-07-14 17:43] VITALS: BP 147/72; PULSE 76; RESP 18; TEMP 98.6; BMI 28.3
[2024-07-14 18:41] LABS: BASO % 1.1 % (0-2.0); EOS % 4.7 % (0-4.5); HEMATOCRIT 35.6 % (35.4-49); HEMOGLOBIN 11.3 GM/dL (11.7-16.9); LYMPH % 22.4 % (8-40); MCH 27.3 pg (25.7-33.7); MCHC 31.8 g/dl (32.0-35.9); MEAN CELL VOLUME 85.9 fl (80-96); MEAN PLT VOLUME 9.9 fl (7.5-11.1); MONO % 9.4 % (3.8-10.2); NEUT % 62.4 % (42.8-82.8); PLATELET COUNT 115 10^3/uL (134-434); RBC 4.15 M/mm3 (4.00-5.60); RDW 17.8 % (11.9-15.9); WHITE BLOOD COUNT 7.6 K/mm3 (4.0-10.0)
[2024-07-14] MEDS ORDERED: LIDOCAINE 5% TOPICAL PATCH ONE (18:42)
[2024-07-14] MEDS: LIDOCAINE 5% TOPICAL PATCH TP ONE (18:45)
[2024-07-14] MEDS ORDERED: ACETAMINOPHEN 325 MG TABLET (FP) ONE (19:14)
[2024-07-14] MEDS: ACETAMINOPHEN 325 MG TABLET (FP) PO ONE (19:21)
[2024-07-14 20:01] LABS: HIV INTERPRETATION NEGATIVE (NEGATIVE)
[2024-07-14 20:09] LABS: POTASSIUM 4.5 mmol/L (3.5-5.1)
[2024-07-14 20:11] LABS: CALCIUM 9.7 mg/dL (8.5-10.1)
[2024-07-14 20:12] LABS: ALBUMIN 4.1 g/dl (3.4-5.0); BLOOD UREA NITROGEN 55.2 mg/dL (7-18); MAGNESIUM 2.2 mg/dL (1.8-2.4)
[2024-07-14 20:17] LABS: BILIRUBIN,TOTAL 0.6 mg/dL (0.2-1); TOT PROT 8.3 g/dl (6.4-8.2)
[2024-07-14 20:24] LABS: CREATININE 7.4 mg/dL (0.55-1.3)
[2024-07-14] MEDS ORDERED: GABAPENTIN 100 MG CAPSULE ONE (21:27)
[2024-07-14] MEDS: GABAPENTIN 100 MG CAPSULE PO ONE (21:30)
== END 2024-07-14 21:53 | disposition home or self-care (01) ==
LOC: JER 17:16
DX: R20.2 Paresthesia of skin (principal); M79.602 Pain in left arm; Z20.822 Contact with and (suspected) exposure to COVID-19
CPT/HCPCS: 0241U-QW; 36415; 80053; 82962; 83735; 84100; 85025; 86803; 87389; 93005; 93010; 99284-25

== ENCOUNTER 2024-09-10 13:03 | Emergency (ER) | payer MEDICARE, OTHER ==
[2024-09-10 13:20] VITALS: BP 107/68; PULSE 81; RESP 20; TEMP 98; BMI 29.2
== END 2024-09-10 17:16 | disposition short-term general hospital (02) ==
LOC: JER 13:03
DX: H54.62 Unqualified visual loss, left eye, normal vision right eye (principal); Z83.511 Family history of glaucoma
CPT/HCPCS: 76512; 99285-25

== ENCOUNTER → 2024-11-01 | Day surgery (SDC) | payer MEDICARE, OTHER | END | disposition home or self-care (01) | LOC: JRADIR 09:46 | PROVIDERS: ATTEND Urology | PROC: 0T25X0Z Change Drainage Device in Kidney, External Approach (ICD-10-PCS; principal; 2024-11-01) | DX: Z43.6 Encounter for attention to other artificial openings of urinary tract (principal) | CPT/HCPCS: 50435 ==